=== PATIENT | female | born 1975 | race American Indian/Alaskan Native ===

== ENCOUNTER 2020-05-26 14:22 | Outpatient (REF) | payer MEDICAID, SELFPAY ==
[2020-05-27 08:49] LABS: BV Int Neg Control Negative (Negative); BV Int Pos Control Positive (Positive)
[2020-05-28 09:57] LABS: C. trachomatis RNA TMA NOT DETECTED (NOT DETECTED); N. gonorrhoeae RNA TMA NOT DETECTED (NOT DETECTED)
[2020-05-29 17:07] LABS: HPV mRNA E6/E7 rflx Not Detected (Not Detected)
== END 2020-05-26 14:23 | disposition home or self-care (01) ==
LOC: HO.LAB 14:22
PROVIDERS: PCP Nurse Practitioner Family; Visit Provider Advanced Practice Midwife
DX: Z12.4 Encounter for screening for malignant neoplasm of cervix (principal); B37.2 Candidiasis of skin and nail; L40.9 Psoriasis, unspecified; E66.01 Morbid (severe) obesity due to excess calories
CPT/HCPCS: 36415; 87480; 87491; 87510; 87591; 87624; 87660; 88142

== ENCOUNTER 2020-07-30 09:53 | Outpatient (REF) | payer MEDICAID, SELFPAY ==
[2020-07-30 12:09] LABS: MANUAL DIFF FLAG NO
[2020-07-30 12:17] LABS: Basophils Percent Auto 0.6 % (0-2); Eosinophils Absolute Auto 0.1 X10*3/uL (0.0-0.4); Eosinophils Percent Auto 2.8 % (0-4); Hemoglobin 12.5 g/dl (12.0-16.0); Lymphocytes Absolute Auto 1.4 X10*3/uL (1.2-4.9); Mean Corpuscular HGB Conc 31.3 g/dl (31.0-35.0); Mean Corpuscular Hemoglobin 26.4 pg (27.0-33.0); Mean Corpuscular Volume 84.4 fL (80-98); Mean Platelet Volume 11.2 fL (9.4-12.3); Monocytes Absolute Auto 0.5 X10*3/uL (0.1-1.2); Monocytes Percent Auto 13.5 % (2-11); Neutrophils Absolute Auto 1.5 X10*3/uL (2.0-8.3); Neutrophils Percent Auto 43.1 % (45-73); Platelet Count 210 X10*3/uL (160-400); Red Blood Count 4.74 X10*6/uL (4.20-5.50); Red Cell Distribution Width 13.4 % (11.0-16.0); White Blood Count 3.6 X10*3/uL (4.8-10.8)
[2020-07-30 16:14] LABS: CT PCR NOT DETECTED (Not Detect.); NG PCR NOT DETECTED (Not Detect.)
[2020-07-30 18:10] LABS: Alanine Aminotransferase 12 U/L (0-31); Albumin Level 3.8 g/dL (3.5-5.0); Alkaline Phosphatase 52 U/L (39-117); Anion Gap 9 (12-20); Aspartate Amino Transferase 11 U/L (5-31); Bilirubin Direct 0.2 mg/dL (0.0-0.5); Bilirubin Total 0.4 mg/dL (0.0-1.0); Blood Urea Nitrogen 13 mg/dL (9-16); Carbon Dioxide 28 mmol/L (22-29); Chloride 105 mmol/L (96-108); Estimated Glomerular Filt Rate > 60; Glucose Random 97 mg/dL (60-115); Potassium 4.2 mmol/L (3.3-5.1); Sodium 138 mmol/L (135-145); Total Protein 6.9 g/dL (6.5-8.0)
[2020-07-31 09:17] LABS: BV Int Neg Control Negative (Negative); BV Int Pos Control Positive (Positive)
== END 2020-07-30 09:54 | disposition home or self-care (01) ==
LOC: HO.LAB 09:53
PROVIDERS: Internal Medicine; PCP Internal Medicine; Visit Provider Advanced Practice Midwife
DX: Z11.3 Encounter for screening for infections with a predominantly sexual mode of transmission (principal); R10.2 Pelvic and perineal pain; N89.8 Other specified noninflammatory disorders of vagina; N92.1 Excessive and frequent menstruation with irregular cycle; Z20.2 Contact with and (suspected) exposure to infections with a predominantly sexual mode of transmission; Z97.5 Presence of (intrauterine) contraceptive device
CPT/HCPCS: 36415; 80051; 80076; 82565; 82947; 84520; 85025; 87480; 87491; 87510; 87591; 87660; 99212

== ENCOUNTER 2020-07-30 11:28 | Outpatient (REF) | payer MEDICAID, SELFPAY | END 2020-07-30 11:29 | disposition home or self-care (01) | LOC: HO.LAB 11:28 | PROVIDERS: PCP Internal Medicine; Visit Provider Internal Medicine | DX: Z13.89 Encounter for screening for other disorder (principal) ==

== ENCOUNTER 2020-07-30 13:24 | Outpatient (REF) | payer MEDICAID, SELFPAY ==
--- NOTE | ~2020-07-30 | US_ITS ---
EXAMINATION: PELVIC ULTRASOUND CLINICAL INFORMATION: Check IUD COMPARISON: Previous pelvic ultrasound October 2018 TECHNIQUE: Transabdominal and transvaginal pelvic ultrasound was performed. Transvaginal exam was performed for better visualization of the uterus and ovaries. FINDINGS: The uterus is anteverted and measures 10 x 4.7 x 5.4 cm in dimension. No focal uterine lesion is seen. There is an IUD in the uterus in satisfactory position. The endometrium does not appear thickened. There is a nabothian cyst in the cervix. The ovaries are normal. The right ovary measures 3.1 x 1.3 x 2.2 cm and the left ovary measures 2.2 x 1.6 x 2.2 cm. There is no fluid in the pelvis. US/US pelvic and transvaginal IMPRESSION: IUD in the uterus in satisfactory position.
== END 2020-07-30 13:25 | disposition home or self-care (01) ==
LOC: HO.HMGCX 13:24
PROVIDERS: Visit Provider Advanced Practice Midwife
DX: Z30.431 Encounter for routine checking of intrauterine contraceptive device (principal); R10.2 Pelvic and perineal pain; N92.1 Excessive and frequent menstruation with irregular cycle
CPT/HCPCS: 76830; 76856

== ENCOUNTER → 2020-08-15 15:54 | Outpatient (BNVA) | payer MEDICAID, SELFPAY | PROVIDERS: PCP Internal Medicine; Visit Provider Advanced Practice Midwife ==

== ENCOUNTER → 2020-09-18 10:04 | Outpatient (BNVA) | payer MEDICAID, SELFPAY | PROVIDERS: PCP Internal Medicine; Visit Provider Physician Assistant | DX: M65.332 Trigger finger, left middle finger (principal) | CPT/HCPCS: 99212 ==

== ENCOUNTER → 2020-09-23 09:32 | Outpatient (BNVA) | payer MEDICAID, SELFPAY | PROVIDERS: PCP Internal Medicine; Visit Provider Orthopaedic Surgery | DX: M65.332 Trigger finger, left middle finger (principal); M65.342 Trigger finger, left ring finger | CPT/HCPCS: 99202 ==

== ENCOUNTER 2020-10-03 13:30 | Outpatient (REF) | payer MEDICAID, SELFPAY ==
--- NOTE | ~2020-10-03 | XR_ITS ---
EXAMINATION: CR X-RAY HIP BILATERAL 2 VIEW CLINICAL INFORMATION: Bilateral hip pain. COMPARISON: None TECHNIQUE: 2 views each of the bilateral hips were obtained. FINDINGS: There is no acute fracture or dislocation. No significant degenerative joint changes are seen. The bony pelvis is intact. An IUD overlies the paramedian right hemipelvis. XR/XR hip LT min 2V IMPRESSION: Unremarkable bilateral hips.
--- NOTE | ~2020-10-03 | XR_ITS ---
EXAMINATION: CR X-RAY HIP BILATERAL 2 VIEW CLINICAL INFORMATION: Bilateral hip pain. COMPARISON: None TECHNIQUE: 2 views each of the bilateral hips were obtained. FINDINGS: There is no acute fracture or dislocation. No significant degenerative joint changes are seen. The bony pelvis is intact. An IUD overlies the paramedian right hemipelvis. XR/XR hip RT min 2V IMPRESSION: Unremarkable bilateral hips.
== END 2020-10-03 13:31 | disposition home or self-care (01) ==
LOC: HO.XRAY 13:30
PROVIDERS: PCP Internal Medicine; Visit Provider Student in an Organized Health Care Education/Training Program
DX: M25.552 Pain in left hip (principal); M25.551 Pain in right hip; L40.9 Psoriasis, unspecified; K50.90 Crohn's disease, unspecified, without complications; Z79.899 Other long term (current) drug therapy
CPT/HCPCS: 73502; 99212

== ENCOUNTER → 2020-10-15 12:48 | Outpatient (BNVA) | payer MEDICAID, SELFPAY | PROVIDERS: PCP Internal Medicine; Visit Provider Orthopaedic Surgery | DX: M65.332 Trigger finger, left middle finger (principal); M65.342 Trigger finger, left ring finger | CPT/HCPCS: 20552; 20550; 99212; J1100 ==

== ENCOUNTER 2021-01-08 11:54 | Outpatient (REF) | payer MEDICAID, SELFPAY ==
[2021-01-08 12:42] LABS: MANUAL DIFF FLAG NO
[2021-01-08 12:56] LABS: Basophils Percent Auto 0.6 % (0-2); Eosinophils Absolute Auto 0.1 X10*3/uL (0.0-0.4); Eosinophils Percent Auto 1.9 % (0-4); Hematocrit 39.6 % (37-47); Hemoglobin 12.5 g/dl (12.0-16.0); Lymphocytes Absolute Auto 1.2 X10*3/uL (1.2-4.9); Lymphocytes Percent Auto 37.1 % (20-40); Mean Corpuscular HGB Conc 31.6 g/dl (31.0-35.0); Mean Corpuscular Hemoglobin 26.4 pg (27.0-33.0); Mean Corpuscular Volume 83.5 fL (80-98); Mean Platelet Volume 11.7 fL (9.4-12.3); Monocytes Absolute Auto 0.4 X10*3/uL (0.1-1.2); Monocytes Percent Auto 12.6 % (2-11); Neutrophils Absolute Auto 1.5 X10*3/uL (2.0-8.3); Neutrophils Percent Auto 47.8 % (45-73); Platelet Count 205 X10*3/uL (160-400); Red Blood Count 4.74 X10*6/uL (4.20-5.50); Red Cell Distribution Width 12.8 % (11.0-16.0); White Blood Count 3.1 X10*3/uL (4.8-10.8)
[2021-01-08 13:12] LABS: Alanine Aminotransferase 13 U/L (0-31); Albumin Level 3.9 g/dL (3.5-5.0); Alkaline Phosphatase 50 U/L (39-117); Aspartate Amino Transferase 12 U/L (5-31); Bilirubin Direct 0.2 mg/dL (0.0-0.5); Bilirubin Total 0.7 mg/dL (0.0-1.0); C Reactive Protein 0.86 mg/dL (< or = 0.50); Total Protein 6.7 g/dL (6.5-8.0)
[2021-01-08 14:55] LABS: Erythrocyte Sedimentation Rate 13 MM/HR (0-20)
== END 2021-01-08 11:55 | disposition home or self-care (01) ==
LOC: HO.LAB 11:54
PROVIDERS: PCP Internal Medicine; Visit Provider Internal Medicine
DX: K50.80 Crohn's disease of both small and large intestine without complications (principal)
CPT/HCPCS: 36415; 80076; 80299; 82542; 85025; 85652; 86140

== ENCOUNTER → 2021-01-21 09:29 | Outpatient (BNVA) | payer MEDICAID, SELFPAY | PROVIDERS: PCP Internal Medicine; Visit Provider Orthopaedic Surgery | DX: M65.332 Trigger finger, left middle finger (principal); M65.342 Trigger finger, left ring finger | CPT/HCPCS: 99212 ==

== ENCOUNTER 2021-02-19 10:05 | Day surgery (SDC) | payer MEDICAID, SELFPAY ==
[2021-02-19 10:46] VITALS: BP 114/70; PULSE 87; RESP 16; TEMP 36.9; O2SAT 99; BMI 46.2
--- NOTE | 2021-02-19 11:03 | W.PM.OPN ---
Operative Note Operative Note Date of Service: 02/19/21 Narrative: Operative Note Preop diagnosis: 1. Left middle finger Trigger finger 2. Left ring finger trigger finger Postop diagnosis: Same Procedure: 1. Left middle finger A1 suha release 2. Left ring finger A1 suha release Surgeon: Machelle Moeller MD Anesthesia: local block using 1% lidocaine with epinephrine Findings: No locking or catching after A1 suha release EBL: Less than 5 mL Tourniquet time: None Specimens: None Complications: None Disposition: Brought to recovery room in stable condition Plan: Follow-up for 7-10 days for wound check and suture removal Indications: The patient is 45 years old, with a left middle and left ring finger trigger fingers that has been unresponsive to nonoperative management. The risks and benefits of operative treatment including but not limited to risk of damage to blood vessels, nerves, tendons, infection, persistent pain, persistent symptoms, recurrence or possible need for additional surgery were discussed with the patient and the patient wishes to proceed with surgery. Procedure: Once consent was obtained a local block was performed in the preop area using a combination of 1% lidocaine with epinephrine. The patient was then brought back to the operating suite and placed on the operative table in supine position. A tourniquet was applied to the proximal aspect of the left upper extremity and the limb was prepped and draped in a standard surgical fashion. Once assured that we had a good block, a 1.5 cm oblique incision was made centered over the A1 suha of the left middle finger . The incision was made through the skin to the subcutaneous tissues using a #15 blade. Careful dissection was made down to the level of the A1 suha using tenotomy scissors, with care being taken to protect the nearby neurovascular structures. A longitudinal incision was made in the A1 suha 1st using a #15 blade, then using tenotomy scissors under direct visualization. The A1 suha was noted to be thickened. Following our A1 suha release, we no longer saw any locking or catching of the digit with flexion and extension. Once assured that we had a good block, a 1.5 cm oblique incision was made centered over the A1 suha of the left ring finger . The incision was made through the skin to the subcutaneous tissues using a #15 blade. Careful dissection was made down to the level of the A1 suha using tenotomy scissors, with care being taken to protect the nearby neurovascular structures. A longitudinal incision was made in the A1 suha 1st using a #15 blade, then using tenotomy scissors under direct visualization. The A1 suha was noted to be thickened. Following our A1 suha release, we no longer saw any locking or catching of the digit with flexion and extension. Once satisfied with our A1 suha release the wound was copiously irrigated with normal saline and hemostasis was obtained with a brief period of local pressure. The skin edges were reapproximated with some 5.0 nylon suture material and a sterile dressing was applied. The patient appears to have tolerated the procedure well and with no complications. All digits were well vascularized at the conclusion of the case.
[2021-02-19 14:20] VITALS: BP 123/73; PULSE 86; RESP 17; TEMP 36.9; O2SAT 98
== END 2021-02-19 14:40 | disposition home or self-care (01) ==
PROVIDERS: PCP Internal Medicine; Visit Provider Orthopaedic Surgery
PROC: (CPT 26055; principal; 2021-02-19 11:30)
DX: M65.332 Trigger finger, left middle finger (principal); M65.342 Trigger finger, left ring finger; J45.909 Unspecified asthma, uncomplicated; K50.90 Crohn's disease, unspecified, without complications; Z98.84 Bariatric surgery status; Z79.899 Other long term (current) drug therapy; Z88.1 Allergy status to other antibiotic agents; Z87.891 Personal history of nicotine dependence
CPT/HCPCS: 26055 ×2; Q0163

== ENCOUNTER → 2021-03-03 12:11 | Outpatient (BNVA) | payer MEDICAID, SELFPAY | PROVIDERS: Visit Provider Orthopaedic Surgery | DX: M65.342 Trigger finger, left ring finger (principal); M65.332 Trigger finger, left middle finger | CPT/HCPCS: 99212 ==

== ENCOUNTER → 2021-03-23 20:42 | Outpatient (REF) | payer MEDICAID, SELFPAY | LOC: HO.SL 20:42 | PROVIDERS: PCP Internal Medicine; Visit Provider Internal Medicine | DX: Z13.89 Encounter for screening for other disorder (principal) ==

== ENCOUNTER → 2021-04-07 08:55 | Outpatient (BNVA) | payer MEDICAID, SELFPAY | PROVIDERS: PCP Internal Medicine; Visit Provider Nurse Practitioner Family | DX: M25.552 Pain in left hip (principal); M79.641 Pain in right hand; M79.642 Pain in left hand; K50.90 Crohn's disease, unspecified, without complications; L40.9 Psoriasis, unspecified | CPT/HCPCS: 99212 ==

== ENCOUNTER 2021-08-17 09:00 | Outpatient (REF) | payer MEDICAID, SELFPAY ==
[2021-08-17 16:02] LABS: CT PCR NOT DETECTED (Not Detect.); NG PCR NOT DETECTED (Not Detect.)
[2021-08-18 09:56] LABS: BV Int Neg Control Negative (Negative); BV Int Pos Control Positive (Positive)
== END 2021-08-17 09:01 | disposition home or self-care (01) ==
LOC: HO.LAB 09:00
PROVIDERS: PCP Internal Medicine; Visit Provider Advanced Practice Midwife
DX: Z01.411 Encounter for gynecological examination (general) (routine) with abnormal findings (principal); N93.9 Abnormal uterine and vaginal bleeding, unspecified; Z20.2 Contact with and (suspected) exposure to infections with a predominantly sexual mode of transmission
CPT/HCPCS: 87480; 87491; 87510; 87591; 87660

== ENCOUNTER 2021-09-03 09:14 | Outpatient (REF) | payer MEDICAID, SELFPAY ==
[2021-09-03 11:47] LABS: MANUAL DIFF FLAG NO
[2021-09-03 11:51] LABS: Basophils Percent Auto 0.6 % (0-2); Eosinophils Absolute Auto 0.1 X10*3/uL (0.0-0.4); Hemoglobin 12.4 g/dl (12.0-16.0); Imm Gran Abs Auto 0.01 X10*3/uL (0.00-0.03); Imm Gran Pct Auto 0.3 % (0.0-0.4); Lymphocytes Absolute Auto 1.4 X10*3/uL (1.2-4.9); Mean Corpuscular HGB Conc 31.8 g/dl (31.0-35.0); Mean Corpuscular Hemoglobin 26.7 pg (27.0-33.0); Mean Corpuscular Volume 84.1 fL (80.0-98.0); Mean Platelet Volume 12.1 fL (9.4-12.3); Monocytes Absolute Auto 0.4 X10*3/uL (0.1-1.2); Monocytes Percent Auto 9.8 % (2-11); Neutrophils Absolute Auto 1.8 x10*3/uL (2.0-8.3); Neutrophils Percent Auto 49.3 % (45-73); Platelet Count 211 X10*3/uL (160-400); Red Blood Count 4.64 X10*6/uL (4.20-5.50); Red Cell Distribution Width 13.3 % (11.0-16.0); White Blood Count 3.6 X10*3/uL (4.8-10.8)
[2021-09-03 12:24] LABS: Ferritin 53 ng/mL (10-250)
[2021-09-03 12:29] LABS: Alanine Aminotransferase 21 U/L (0-31); Albumin Level 3.6 g/dL (3.5-5.0); Alkaline Phosphatase 54 U/L (39-117); Aspartate Amino Transferase 15 U/L (5-31); Bilirubin Direct 0.2 mg/dL (0.0-0.5); Bilirubin Total 0.3 mg/dL (0.0-1.0); C Reactive Protein 0.98 mg/dL (< or = 0.50); Iron 137 mcg/dL (30-160); Percent Iron Saturation 44 % (15-50); Total Iron Binding Capacity 312 mcg/dL (228-428); Total Protein 6.6 g/dL (6.5-8.0); Unsaturated Iron Binding 175 ug/dL
[2021-09-03 12:44] LABS: Folate 5.9 ng/mL (> or = 4.0); Vitamin B12 330 pg/mL (200-900)
[2021-09-03 13:04] LABS: Erythrocyte Sedimentation Rate 10 MM/HR (0-20)
== END 2021-09-03 09:15 | disposition home or self-care (01) ==
LOC: HO.HMGCLDS 09:14
PROVIDERS: Visit Provider Internal Medicine
DX: K50.80 Crohn's disease of both small and large intestine without complications (principal)
CPT/HCPCS: 36415; 80076; 82607; 82728; 82746; 83540; 85025; 85652; 86140

== ENCOUNTER 2021-10-06 08:20 | Outpatient (REF) | payer MEDICAID, SELFPAY ==
--- NOTE | ~2021-10-06 | US_ITS ---
EXAMINATION: US PELVIS CLINICAL INFORMATION: Abnormal uterine bleeding COMPARISON: Previous pelvic ultrasound most recent July 2020 TECHNIQUE: Ultrasound of the pelvis is performed using both transabdominal and transvaginal transducers along with Doppler. Transvaginal imaging is performed due to inadequate visualization transabdominally. FINDINGS: The uterus is anteverted and measures 9.5 x 5.4 x 6.3 cm in dimension. There is an IUD in the uterus in satisfactory position. The endometrium is not clearly identified but does not appear thickened. No focal uterine lesion is seen. There are nabothian cysts in the cervix. The right ovary measures 5.3 x 3.1 x 3 cm. There is a 3.7 x 3.2 x 3 cm simple right ovarian cyst. According to patient age in size of cyst, ultrasound follow-up is not indicated. Left ovary is seen transabdominally only and is normal-appearing. The left ovary measures 3.3 x 1.3 x 1.9 cm. There is no fluid in the pelvis. US/US pelvic and transvaginal IMPRESSION: IUD in the uterus in satisfactory position. Endometrium is not clearly identified but does not appear thickened. 3.7 x 3.2 x 3 cm right simple ovarian cyst.
== END 2021-10-06 08:21 | disposition home or self-care (01) ==
LOC: HO.HMGCX 08:20
PROVIDERS: Visit Provider Advanced Practice Midwife
DX: E66.01 Morbid (severe) obesity due to excess calories (principal); N93.9 Abnormal uterine and vaginal bleeding, unspecified; Z30.09 Encounter for other general counseling and advice on contraception; Z97.5 Presence of (intrauterine) contraceptive device
CPT/HCPCS: 76830; 76856

== ENCOUNTER 2021-10-06 11:26 | Outpatient (REF) | payer MEDICAID, SELFPAY ==
--- NOTE | ~2021-10-06 | MM_ITS ---
EXAMINATION: MM SCREENING DIGITAL BREAST TOMOSYNTHESIS, BILATERAL CLINICAL INFORMATION: Screening. Asymptomatic. No prior mammography. Age 46. The lifetime risk of breast cancer based on the Tyrer-Cuzick Model is 13%. COMPARISON: No prior mammography. Current study represents baseline mammography. Comparison is made with targeted ultrasound left breast 08/26/2011 ([facility]). TECHNIQUE: Digital breast tomosynthesis is performed in both the craniocaudal and mediolateral oblique views along with computer-aided detection (CAD). Synthesized 2D images are generated from the tomosynthesis. FINDINGS: There are scattered areas of fibroglandular density (ACR BI-RADS breast composition Category b). There are no significant masses, abnormal calcifications, or other abnormalities. No architectural abnormality. There is an intramammary node mid 9:00 right breast. The axilla and skin contours are unremarkable. MM/MM tomosynthesis screening BI IMPRESSION: No mammographic evidence of malignancy. ASSESSMENT: BI-RADS 2: Benign RECOMMENDATION: Routine annual mammography screening. This patient's information was entered into a reminder system with a target due date for their next mammogram.
== END 2021-10-06 11:27 | disposition home or self-care (01) ==
LOC: HO.MAMMO 11:26
PROVIDERS: PCP Internal Medicine; Visit Provider Advanced Practice Midwife
DX: Z12.31 Encounter for screening mammogram for malignant neoplasm of breast (principal)
CPT/HCPCS: 77063; 77067

== ENCOUNTER 2021-10-07 08:20 | Outpatient (REF) | payer MEDICAID, SELFPAY ==
--- NOTE | 2021-10-07 08:30 | EMG_ITS ---
HISTORY OF PRESENT ILLNESS: This is a 46-year-old woman with several year history of bilateral upper extremity numbness and tingling with the right being worse than the left. She had a previous nerve conduction study at [facility]. She has been wearing wrist splints on the right. PHYSICAL EXAMINATION: On examination, she is alert and oriented with normal intellectual functions. Cranial nerves II through XII normal. Muscle tone and strength are normal. No Tinel or Phalen sign. IMPRESSION: Carpal tunnel syndrome. Nerve conduction EMG study: Very early carpal tunnel syndrome bilaterally with mild slowing in the median sensory velocities across the carpal tunnel. Normal EMG in the right C5 through T1 innervated muscles. MD CHUYITA Conn/TANIA / [id number]
== END 2021-10-07 08:21 | disposition home or self-care (01) ==
LOC: HO.NEURO 08:20
PROVIDERS: Visit Provider Internal Medicine
DX: M25.521 Pain in right elbow (principal); M25.541 Pain in joints of right hand
CPT/HCPCS: 95885; 95913

== ENCOUNTER → 2021-10-14 10:50 | Outpatient (BNVA) | payer MEDICAID, SELFPAY | PROVIDERS: PCP Internal Medicine; Visit Provider Orthopaedic Surgery | DX: M77.11 Lateral epicondylitis, right elbow (principal); R20.0 Anesthesia of skin; R20.2 Paresthesia of skin | CPT/HCPCS: 20551; 99212; J1100 ==

== ENCOUNTER 2021-10-16 11:57 | Emergency (ER) | payer MEDICAID, SELFPAY ==
--- NOTE | ~2021-10-16 | XR_ITS ---
EXAMINATION: XR FOOT, RIGHT CLINICAL INFORMATION: Pain COMPARISON: Previous x-ray from 2015 TECHNIQUE: AP, lateral, and oblique views of the right foot. FINDINGS: The bones are normal. No fracture. Alignment is anatomic. Joint spaces are maintained. Are small calcaneal spurs. XR/XR foot RT min 3V IMPRESSION: Small calcaneal spurs.
[2021-10-16 12:03] VITALS: BP 104/63; PULSE 75; RESP 16; TEMP 36.8; O2SAT 97; BMI 48.1
--- NOTE | 2021-10-16 12:13 | ED.GENADULT ---
HPI - General Adult General Chief complaint: Extremity Injury, Lower Stated complaint: pain in R ankle Time Seen by Provider: 10/16/21 12:13 Source: patient Mode of arrival: ambulatory Limitations: no limitations History of Present Illness HPI narrative: Patient is a 46 year old female presenting to the emergency department today with right heel pain. Patient states that she has had this before but over the last week it has gotten worse. Patient states that when she takes a step, she has pain in the right heel. Patient states that she has a history of plantar fasciitis and does not currently follow with an orthopedic doctor for it. Patient denies any dizziness, lightheadedness, abdominal pain, nausea, vomiting, fever, chills, blurry vision, double vision, loss of vision, chest pain, difficulty breathing, shortness of breath, back pain, night sweats, pain with urination, increased urinary frequency, increased urinary urgency, blood in her urine or stool, syncope or a near syncopal episode, recent trauma or falls, bowel incontinence, bladder incontinence, bowel retention, bladder retention, or any other complaints at this time. Onset (ago): year(s) Location: right and lower extremity Radiation: non-radiation Severity: mild Severity scale (1-10): 2 Quality: dull Pain Consistency: intermittent Relieving factors: none Exacerbating factors: movement Associated symptoms: denies other symptoms Treatments prior to arrival: none Related Data Home Medications Medication Instructions Recorded Confirmed zolpidem 10 mg tablet (Ambien) 10 mg PO BEDTIME PRN Insomnia 05/26/20 10/13/21 hydroxyzine pamoate 25 mg capsule 25 mg PO BEDTIME 07/30/20 10/13/21 ustekinumab 90 mg/mL subcutaneous 90 mg subcut Q8W 07/30/20 10/13/21 syringe (Stelara) fluticasone propionate 110 110 mcg inhalation DAILY 02/19/21 10/13/21 mcg/actuation HFA aerosol inhaler (Flovent HFA) albuterol sulfate 90 mcg/actuation 2 puff inhalation Q6H PRN 04/07/21 10/13/21 aerosol inhaler (ProAir HFA) Shortness Of Breath Or Wheezing baclofen 10 mg tablet 20 mg PO TID 04/07/21 10/13/21 cholecalciferol (vitamin D3) 50 50 mcg PO DAILY 04/07/21 10/13/21 mcg (2,000 unit) capsule dicyclomine 20 mg tablet 20 mg PO TID 04/07/21 10/13/21 pantoprazole 40 mg tablet,delayed 40 mg PO DAILY 04/07/21 10/13/21 release buspirone 5 mg tablet 5 mg PO BID 08/17/21 10/13/21 fexofenadine 180 mg tablet 180 mg PO DAILY 08/17/21 10/13/21 (Amada Allergy) levonorgestrel 20 mcg/24 hours (7 20 mcg intrauterine DAILY 08/17/21 10/13/21 yrs) 52 mg intrauterine device (Mirena) sertraline 50 mg tablet 50 mg PO DAILY 08/17/21 10/13/21 propranolol 20 mg tablet 1 tab PO DAILY 10/12/21 10/13/21 Previous Rx's Medication Instructions Recorded fluconazole 150 mg tablet 150 mg PO Q3D PRN reported yeast 09/04/21 infections #2 tabs Allergies Allergy/AdvReac Type Severity Reaction Status Date / Time ciprofloxacin [From CIPRO] Allergy Severe GI PAIN Verified 10/14/21 11:20 vancomycin Allergy Unknown anaphylaxis Uncoded 10/14/21 11:20 Review of Systems Constitutional: Constitutional: Reports no additional constitutional complaints, Denies chills, Denies fever(s) and Denies night sweats Eyes: Eyes: Reports no additional eye complaints, Denies blurry vision, Denies change in vision, Denies diplopia, Denies eye discharge, Denies loss of vision and Denies eye pain ENT: Denies dizziness Cardiovascular: Cardiovascular: Reports no additional cardiovascular complaints, Denies chest pain, Denies lightheadedness, Denies Loss of Consciousness and Denies dyspnea Respiratory: Respiratory: Reports no additional respiratory complaints and Denies dyspnea Gastrointestinal: Gastrointestinal: Reports no additional gastrointestinal complaints, Denies abdominal pain, Denies melena, Denies hematochezia, Denies change in bowel habits and Denies change in stool character Genitourinary: Genitourinary: Denies hematuria, Denies urinary frequency, Denies dysuria, Denies urinary incontinence, Denies urinary hesitancy and Denies urinary urgency Musculoskeletal: Musculoskeletal: Reports no additional musculoskeletal complaints, Denies numbness and Denies tingling Comments: right heel pain Neurologic: Denies dizziness, Denies loss of vision, Denies numbness and Denies tingling Psychiatric: Psychiatric: Reports no additional psychiatric complaints Endocrine: Endocrine: Reports no additional endocrine complaints Hematologic/Lymphatic: Hematologic/Lymphatic: Reports no additional hematologic/lymphatic complaints Allergic/Immunologic: Allergic/Immunologic: Reports no additional allergic/immunologic complaints PMFSH Past Medical History Attestation statement: The following information was validated with the patient. Source: old records reviewed Medical History Asthma Crohn's disease Insomnia Trigger finger Surgical History History of carpal tunnel surgery Hx of breast reduction, elective Hx of laparoscopic gastric banding Family History Family History Father HIV (human immunodeficiency virus infection) Mother Hypertension Maternal Grandmother Diabetes mellitus Maternal Grandfather Hypertension Lymphoma Paternal Grandfather No problems noted. 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/ Gender identity: Female Physical Exam ED Vital Signs: Vital Signs - 24 hr 10/16/21 12:03 Temperature 98.2 F Pulse Rate 75 Respiratory Rate 16 Blood Pressure 104/63 Pulse Oximetry 97 Oxygen Delivery Method Room Air BMI result Body Mass Index 48.1 Const General: cooperative, no acute distress, alert and awake Nutritional Appearance: well nourished Orientation/consciousness: patient oriented x3 Limitations: no limitations HENMT Head: Yes normal to inspection and Yes atraumatic Ears: hearing grossly normal bilaterally and external ears normal General nose exam: Normal external nose present, no nasal discharge noted and no epistaxis Face and sinus: Yes normal facial exam, No abrasion and No laceration Mouth: Normal oral and palatal mucosa present, no drooling and no muffled voice Eyes General: appearance normal, both eyes and all related structures Periorbital: periorbital findings normal Eyelids: Yes eyelids normal Conjunctivae: conjunctivae normal Pupils: Equal, round and reactive pupils present EOM: EOMs intact bilaterally Neck Neck: Yes normal visual inspection, Yes full ROM and Yes no lymphadenopathy Chest Chest palpation & inspection: normal inspection of the chest Resp Effort & Inspection: normal respiratory effort and able to speak in complete sentences Auscultation: clear to auscultation bilaterally Cardio Rate: regular rate Rhythm: regular rhythm GI Inspection: Yes normal to inspection Neuro General: patient oriented x3 and moves all extremities Cranial nerves: Yes Equal, round and reactive pupils present Cognition (Neuro): normal cognition Motor exam (neuro): 5/5 motor strength present throughout Sensory Exam: Normal double simultaneous stimulation for sensation Coordination: [id number] test normal Extrem General: Yes normal to inspection, Yes full ROM and Yes capillary refill normal Psych Appearance: grossly normal Mental Status: mental status grossly normal Affect: normal affect Attitude: cooperative Thought process: Normal thought process present Thought content: Normal thought content present Insight: Good insight present (Psych) Medical Decision Making [facility] Narrative Medical decision making narrative: Patient is a 46 year old female presenting to the emergency department today with right heel pain. Patient's physical exam was unremarkable. Patient's right foot x-ray showed no acute process. I explained my physical exam findings as well as all test results to the patient. I answered all questions asked by the patient. I stressed the importance of the patient taking her medication as prescribed. I stressed the importance of the patient following up with her primary care provider and an orthopedic provider. I stressed the importance of the patient returning to the emergency department immediately if her symptoms were to worsen or if she were to develop any dizziness, shortness of breath, difficulty breathing, chest pain, blurry vision, loss of vision, nausea, vomiting, abdominal pain, fever, chills, back pain, or any other complaints. Patient verbalized agreement and understanding with this treatment plan and discharge. Differential Diagnosis Differential Diagnosis: plantar fasciitis Medical Records Medical records reviewed: Yes I reviewed the patient's medical records. Imaging Data Right heel pain: Attestation: I personally reviewed and interpreted this imaging study as follows: My impression: No acute fracture. Radiologist's impression: EXAMINATION: XR FOOT, RIGHT CLINICAL INFORMATION: Pain? COMPARISON: Previous x-ray from 2015? TECHNIQUE: AP, lateral, and oblique views of the right foot. FINDINGS: The bones are normal. No fracture. Alignment is anatomic. Joint spaces are maintained. Are small calcaneal spurs. XR/XR foot RT min 3V IMPRESSION: Small calcaneal spurs. Dictated By: Stefanie Jay MD Signed By: Electronically signed by Stefanie Jay MD 10/16/21 9930 Discharge Plan Discharge Clinical Impression: Plantar fasciitis Patient Disposition: Home, Self-Care Instructions: Plantar Fasciitis (ED) Additional Instructions: Follow up with your primary care provider and an orthopedic provider. Return to the emergency department immediately if your symptoms worsen or if you develop any dizziness, shortness of breath, difficulty breathing, chest pain, blurry vision, loss of vision, nausea, vomiting, abdominal pain, fever, chills, back pain, or any other complaints. Prescriptions: No Action fluconazole 150 mg tablet 150 mg PO Q3D PRN (Reason: reported yeast infections) Qty: 2 0RF Rx Instructions: may repeat second dose 72 hrs after first dose if symptoms persist fluticasone propionate [Flovent HFA] 110 mcg/actuation HFA aerosol inhaler 110 mcg inhalation DAILY propranolol 20 mg tablet 1 tab PO DAILY zolpidem [Ambien] 10 mg tablet 10 mg PO BEDTIME PRN (Reason: Insomnia) baclofen 10 mg tablet 20 mg PO TID cholecalciferol (vitamin D3) 50 mcg (2,000 unit) capsule 50 mcg PO DAILY pantoprazole 40 mg tablet,delayed release (DR/EC) 40 mg PO DAILY dicyclomine 20 mg tablet 20 mg PO TID albuterol sulfate [ProAir HFA] 90 mcg/actuation HFA aerosol inhaler 2 puff inhalation Q6H PRN (Reason: Shortness Of Breath Or Wheezing) hydroxyzine pamoate 25 mg capsule 25 mg PO BEDTIME Stelara 90 mg/mL syringe 90 mg subcut Q8W sertraline 50 mg tablet 50 mg PO DAILY buspirone 5 mg tablet 5 mg PO BID fexofenadine [Amada Allergy] 180 mg tablet 180 mg PO DAILY Mirena 20 mcg/24 hours (7 yrs) 52 mg intrauterine device 20 mcg intrauterine DAILY Ref[place]: [facility] [place] Group] Ceci Billings MD [Primary Care Provider] - Interventions: ED Discharge Assessment Last Done: 10/16/21 13:51 Discharge Date/Time: 10/16/21 13:52 Print Language: Bermudian
== END 2021-10-16 13:52 | disposition home or self-care (01) ==
PROVIDERS: Emergency Provider Emergency Medicine Emergency Medical Services; PCP Internal Medicine
DX: M72.2 Plantar fascial fibromatosis (principal); Z87.891 Personal history of nicotine dependence; Z79.899 Other long term (current) drug therapy
CPT/HCPCS: 73630; 99282; 99283

== ENCOUNTER 2021-11-09 13:31 | Outpatient (REF) | payer MEDICAID, SELFPAY ==
[2021-11-12 12:26] LABS: HPV mRNA E6/E7 rflx Not Detected (Not Detected)
== END 2021-11-09 13:32 | disposition home or self-care (01) ==
LOC: HO.LAB 13:31
PROVIDERS: PCP Internal Medicine; Visit Provider Advanced Practice Midwife
DX: Z30.433 Encounter for removal and reinsertion of intrauterine contraceptive device (principal); Z32.02 Encounter for pregnancy test, result negative; N93.9 Abnormal uterine and vaginal bleeding, unspecified; E66.01 Morbid (severe) obesity due to excess calories
CPT/HCPCS: 58100; 58300; 58301; 81025; 87624; 88142; 88305; 99212; J7300

== ENCOUNTER → 2021-12-07 12:28 | Outpatient (BNVA) | payer MEDICAID, SELFPAY | PROVIDERS: PCP Internal Medicine; Visit Provider Nurse Practitioner Family | DX: M25.551 Pain in right hip (principal); M25.552 Pain in left hip; L40.9 Psoriasis, unspecified; K50.90 Crohn's disease, unspecified, without complications; M79.641 Pain in right hand; M79.642 Pain in left hand | CPT/HCPCS: 99212 ==

== ENCOUNTER 2021-12-09 12:33 | Outpatient (REF) | payer MEDICAID, SELFPAY ==
[2021-12-09 12:40] LABS: MANUAL DIFF FLAG NO
[2021-12-09 12:54] LABS: Basophils Percent Auto 0.4 % (0-2); Eosinophils Absolute Auto 0.1 X10*3/uL (0.0-0.4); Eosinophils Percent Auto 1.9 % (0-4); Hematocrit 40.2 % (37.0-47.0); Hemoglobin 12.7 g/dl (12.0-16.0); Imm Gran Abs Auto 0.01 X10*3/uL (0.00-0.03); Imm Gran Pct Auto 0.2 % (0.0-0.4); Lymphocytes Absolute Auto 1.3 X10*3/uL (1.2-4.9); Lymphocytes Percent Auto 28.6 % (20-40); Mean Corpuscular HGB Conc 31.6 g/dl (31.0-35.0); Mean Corpuscular Hemoglobin 26.7 pg (27.0-33.0); Mean Corpuscular Volume 84.5 fL (80.0-98.0); Mean Platelet Volume 11.2 fL (9.4-12.3); Monocytes Absolute Auto 0.5 X10*3/uL (0.1-1.2); Monocytes Percent Auto 10.5 % (2-11); Neutrophils Absolute Auto 2.7 x10*3/uL (2.0-8.3); Neutrophils Percent Auto 58.4 % (45-73); Platelet Count 229 X10*3/uL (160-400); Red Blood Count 4.76 X10*6/uL (4.20-5.50); Red Cell Distribution Width 13.2 % (11.0-16.0); White Blood Count 4.7 X10*3/uL (4.8-10.8)
[2021-12-09 13:26] LABS: Alanine Aminotransferase 13 U/L (0-31); Aspartate Amino Transferase 12 U/L (5-31); Blood Urea Nitrogen 16 mg/dL (9-16); C Reactive Protein 1.03 mg/dL (< or = 0.50); Estimated Glomerular Filt Rate 60
[2021-12-09 13:35] LABS: Erythrocyte Sedimentation Rate 11 MM/HR (0-20)
== END 2021-12-09 12:34 | disposition home or self-care (01) ==
LOC: HO.LAB 12:33
PROVIDERS: PCP Internal Medicine; Visit Provider Nurse Practitioner Family
DX: M54.50 Low back pain, unspecified (principal); Z79.899 Other long term (current) drug therapy
CPT/HCPCS: 36415; 82565; 84450; 84460; 84520; 85025; 85652; 86140

== ENCOUNTER 2021-12-10 13:32 | Outpatient (REF) | payer SELFPAY ==
[2021-12-11 09:20] LABS: BV Int Neg Control Negative (Negative); BV Int Pos Control Positive (Positive)
== END 2021-12-10 13:33 | disposition home or self-care (01) ==
LOC: HO.LAB 13:32
PROVIDERS: Visit Provider Advanced Practice Midwife
DX: B37.2 Candidiasis of skin and nail (principal)
CPT/HCPCS: 87480; 87510; 87660; 99212

== ENCOUNTER 2021-12-11 12:56 | Outpatient (REF) | payer MEDICAID, SELFPAY ==
[2021-12-11 17:39] LABS: Appearance Urine Clear; Color Urine Yellow; Glucose Urine UA Negative (Negative); Leukocyte Esterase Urine Negative (Negative); Nitrite Urine Negative (Negative); PH 5.5 (5.0-8.0); Specific Gravity - Urine 1.015 (1.005-1.025); Urine Blood Negative (Negative); Urine Ketones Negative (Negative); Urine Protein Negative (Neg-Trace)
== END 2021-12-11 12:57 | disposition home or self-care (01) ==
LOC: HO.LAB 12:56
PROVIDERS: PCP Internal Medicine; Visit Provider Internal Medicine
DX: R39.9 Unspecified symptoms and signs involving the genitourinary system (principal)
CPT/HCPCS: 81003; 87086

== ENCOUNTER 2021-12-18 09:01 | Outpatient (REF) | payer MEDICAID, SELFPAY ==
--- NOTE | ~2021-12-18 | MR_ITS ---
EXAMINATION: MR PELVIS WITHOUT AND WITH CONTRAST CLINICAL INFORMATION: Lower back and bilateral hip pain. COMPARISON: Bilateral hip radiographs dated 10/03/2020. MR pelvis dated 05/10/2018. TECHNIQUE: Multisequence MR imaging of the pelvis was obtained before and after the IV administration of 10 ML Gadavist contrast on a high-field strength scanner. FINDINGS: BONE: No marrow edema or evidence of acute osseous injury. No stress reaction, fracture, or avascular necrosis. No abnormal marrow enhancement. Redemonstration of a prominent focus of fat within the right iliac bone as well as inferiorly within the right sacrum, unchanged when compared to the prior MRI. No associated enhancement or concerning features. No new lytic or blastic osseous lesion. MUSCLES/TENDONS: Moderate bilateral gluteus minimus tendinosis with associated edema and enhancement. No measurable muscle or tendon tear. INTRAPELVIC STRUCTURES: Multiple right adnexal simple cystic structures measuring up to 3.2 cm. These are almost certainly benign and no follow-up imaging is recommended. SOFT TISSUES: Within normal limits. MR/MR pelvis wo/w con IMPRESSION: 1. No evidence of acute osseous injury. No stress reaction, fracture, or avascular necrosis. 2. No concerning lytic or blastic osseous lesion. 3. Moderate bilateral gluteus minimus tendinosis.
== END 2021-12-18 09:02 | disposition home or self-care (01) ==
LOC: HO.MRI 09:01
PROVIDERS: Visit Provider Nurse Practitioner Family
DX: M53.3 Sacrococcygeal disorders, not elsewhere classified (principal); R93.5 Abnormal findings on diagnostic imaging of other abdominal regions, including retroperitoneum
CPT/HCPCS: 72197; A9585

== ENCOUNTER 2022-01-06 15:09 | Outpatient (REF) | payer MEDICAID, SELFPAY ==
--- NOTE | ~2022-01-06 | XR_ITS ---
EXAMINATION: XR chest 2V CLINICAL INFORMATION: Reason for Exam MODERATE PERSISTENT ASTHMA COMPARISON: Chest radiograph 07/10/2015 TECHNIQUE: 2 views of the chest FINDINGS: Suture chain material is noted overlying the left upper lobe. Similar appearance of linear right apical and left basilar opacities which may reflect chronic atelectasis or scar. No new consolidation. No pneumothorax. Stable chronic blunting of the left costophrenic angle. Normal cardiomediastinal silhouette. XR/XR chest 2V Impression: Similar appearance of linear right apical and left basilar opacities which may reflect chronic atelectasis or scar. No new consolidation
== END 2022-01-06 15:10 | disposition home or self-care (01) ==
LOC: HO.XRAY 15:09
PROVIDERS: Absent Provider Internal Medicine; PCP Internal Medicine; Visit Provider Emergency Medicine
DX: J45.41 Moderate persistent asthma with (acute) exacerbation (principal)
CPT/HCPCS: 71046

== ENCOUNTER → 2022-02-18 13:43 | Outpatient (BNVA) | payer MEDICAID, SELFPAY | PROVIDERS: PCP Internal Medicine; Visit Provider Internal Medicine | DX: J45.909 Unspecified asthma, uncomplicated (principal); J30.9 Allergic rhinitis, unspecified; E66.01 Morbid (severe) obesity due to excess calories; Z68.43 Body mass index [BMI] 50.0-59.9, adult; G47.33 Obstructive sleep apnea (adult) (pediatric) | CPT/HCPCS: 99202 ==

== ENCOUNTER 2022-03-09 12:55 | Outpatient (REF) | payer MEDICAID, SELFPAY ==
--- NOTE | 2022-03-09 17:30 | PFT_ITS ---
FLOWS: FEV1 79% of predicted at 2.40 L. FVC 83% of predicted at 3.05 L. FEV1 to FVC ratio of 0.78. No bronchodilator response except in small to medium airways. LUNG VOLUMES: Total lung capacity 82% of predicted at 4.32 L. Residual volume 76% of predicted at 1.34 L. Slow vital capacity 86% of predicted at 2.97 L. Expiratory reserve volume 25% of predicted at 0.30 L. Diffusion capacity is normal. IMPRESSION: No obstructive or restrictive ventilatory defect. No bronchodilator response except in small to medium airways. Decreased expiratory reserve volume suggests extrathoracic restriction likely secondary to abdominal obesity. Jose Juan Mishra MD AP/MODL / [id number]
== END 2022-03-09 12:56 | disposition home or self-care (01) ==
LOC: HO.RESP 12:55
PROVIDERS: PCP Internal Medicine; Visit Provider Internal Medicine
DX: J45.909 Unspecified asthma, uncomplicated (principal)
CPT/HCPCS: 94060; 94727; 94729

== ENCOUNTER 2022-05-20 13:26 | Outpatient (REF) | payer MEDICAID, SELFPAY ==
[2022-05-20 14:21] LABS: MANUAL DIFF FLAG NO
[2022-05-20 15:05] LABS: Basophils Percent Auto 0.3 % (0-2); Eosinophils Absolute Auto 0.1 X10*3/uL (0.0-0.4); Eosinophils Percent Auto 1.4 % (0-4); Hematocrit 38.4 % (37.0-47.0); Hemoglobin 12.1 g/dl (12.0-16.0); Imm Gran Abs Auto 0.01 X10*3/uL (0.00-0.03); Imm Gran Pct Auto 0.3 % (0.0-0.4); Lymphocytes Percent Auto 28.9 % (20-40); Mean Corpuscular HGB Conc 31.5 g/dl (31.0-35.0); Mean Corpuscular Hemoglobin 26.1 pg (27.0-33.0); Mean Corpuscular Volume 82.9 fL (80.0-98.0); Mean Platelet Volume 11.3 fL (9.4-12.3); Monocytes Absolute Auto 0.4 X10*3/uL (0.1-1.2); Monocytes Percent Auto 11.9 % (2-11); Neutrophils Absolute Auto 2.1 x10*3/uL (2.0-8.3); Neutrophils Percent Auto 57.2 % (45-73); Platelet Count 226 X10*3/uL (160-400); Red Blood Count 4.63 X10*6/uL (4.20-5.50); Red Cell Distribution Width 13.5 % (11.0-16.0); White Blood Count 3.6 X10*3/uL (4.8-10.8)
[2022-05-20 15:33] LABS: Alanine Aminotransferase 25 U/L (0-31); Albumin Level 3.8 g/dL (3.5-5.0); Alkaline Phosphatase 56 U/L (39-117); Anion Gap 12 (12-20); Aspartate Amino Transferase 17 U/L (5-31); Bilirubin Total 0.5 mg/dL (0.0-1.0); Blood Urea Nitrogen 16 mg/dL (9-16); Calcium 8.8 mg/dL (8.4-10.2); Carbon Dioxide 24 mmol/L (22-29); Chloride 105 mmol/L (96-108); Estimated Glomerular Filt Rate > 60; Glucose Random 85 mg/dL (60-115); Potassium 4.2 mmol/L (3.3-5.1); Sodium 137 mmol/L (135-145); Total Protein 6.9 g/dL (6.5-8.0)
[2022-05-25 02:49] LABS: Immunoglobulin E 4 kU/L (<OR=114)
== END 2022-05-20 13:27 | disposition home or self-care (01) ==
LOC: HO.LAB 13:26
PROVIDERS: Internal Medicine Medical Oncology; PCP Internal Medicine; Visit Provider Internal Medicine
DX: J45.909 Unspecified asthma, uncomplicated (principal); G47.33 Obstructive sleep apnea (adult) (pediatric); D72.819 Decreased white blood cell count, unspecified; E66.01 Morbid (severe) obesity due to excess calories; J30.9 Allergic rhinitis, unspecified; R40.0 Somnolence; Z79.899 Other long term (current) drug therapy
CPT/HCPCS: 36415; 80053; 82785; 85025; 99212

== ENCOUNTER → 2022-06-09 13:00 | Outpatient (REF) | payer MEDICAID, SELFPAY | LOC: HO.SL 13:00 | PROVIDERS: Visit Provider Internal Medicine | DX: G47.33 Obstructive sleep apnea (adult) (pediatric) (principal); E66.01 Morbid (severe) obesity due to excess calories; R40.0 Somnolence | CPT/HCPCS: 95806 ==

== ENCOUNTER → 2022-06-24 13:48 | Outpatient (BNVA) | payer MEDICAID, SELFPAY | PROVIDERS: PCP Internal Medicine; Visit Provider Internal Medicine | DX: J45.909 Unspecified asthma, uncomplicated (principal); G47.33 Obstructive sleep apnea (adult) (pediatric); E66.01 Morbid (severe) obesity due to excess calories; Z68.42 Body mass index [BMI] 45.0-49.9, adult | CPT/HCPCS: 99212 ==

== ENCOUNTER 2022-07-23 08:47 | Outpatient (REF) | payer MEDICAID, SELFPAY ==
[2022-07-23 11:05] LABS: Hemoglobin 12.6 g/dl (12.0-16.0); Mean Corpuscular HGB Conc 31.5 g/dl (31.0-35.0); Mean Corpuscular Hemoglobin 26.5 pg (27.0-33.0); Mean Platelet Volume 11.4 fL (9.4-12.3); Platelet Count 217 X10*3/uL (160-400); Red Blood Count 4.76 X10*6/uL (4.20-5.50); Red Cell Distribution Width 13.4 % (11.0-16.0); White Blood Count 3.7 X10*3/uL (4.8-10.8)
[2022-07-23 11:51] LABS: TSH reflex Free T4 1.09 uIU/mL (0.32-4.0)
== END 2022-07-23 08:48 | disposition home or self-care (01) ==
LOC: HO.LAB 08:47
PROVIDERS: PCP Internal Medicine; Visit Provider Advanced Practice Midwife
DX: N93.9 Abnormal uterine and vaginal bleeding, unspecified (principal); M79.7 Fibromyalgia; Z30.433 Encounter for removal and reinsertion of intrauterine contraceptive device; Z79.899 Other long term (current) drug therapy
CPT/HCPCS: 36415; 58100; 58300; 58301; 81025; 84443; 85027; 88305; 99212; J7298

== ENCOUNTER → 2022-07-30 13:06 | Outpatient (BNVA) | payer MEDICAID, SELFPAY | PROVIDERS: PCP Internal Medicine; Visit Provider Advanced Practice Midwife ==

== ENCOUNTER 2022-08-04 14:29 | Outpatient (REF) | payer MEDICAID, SELFPAY ==
--- NOTE | ~2022-08-04 | US_ITS ---
EXAMINATION: US PELVIS CLINICAL INFORMATION: Abnormal uterine bleeding; the last menstrual period was on 06/29/2022. COMPARISON: Pelvic ultrasound dated 10/06/2021. TECHNIQUE: Ultrasound of the pelvis is performed using both transabdominal and transvaginal transducers along with Doppler. Transvaginal imaging is performed due to inadequate visualization transabdominally. FINDINGS: Uterus: The uterus is anteverted and measures 10.8 x 3.8 x 5.0 cm. The uterus is anteverted and anteflexed. The double wall endometrial thickness is seen mm. An intrauterine device is seen, properly situated within the dependent pelvis. The uterus is smooth in contour and has normal myometrial echogenicity. No visible fibroid. Adnexa: The right ovary is not visualized. The left ovary is visualized. There is normal abnormal color flow to the adnexa. There is no ovarian torsion. There is no pelvic ascites or fluid collection. The left ovary measures 3.4 x 1.9 x 2.0 cm, volume 6.6 mL. The left ovary contains a 2.0 cm dominant simple cyst. This is a benign finding, for which no imaging follow-up is recommended. US/US pelvic and transvaginal IMPRESSION: 1. An intrauterine device is seen, properly situated within the endometrial canal. 2. The right ovary is nonvisualized. 3. A 2.0 cm benign, simple left ovarian cyst is seen, for which no imaging follow-up is recommended.
== END 2022-08-04 14:30 | disposition home or self-care (01) ==
LOC: HO.US 14:29
PROVIDERS: PCP Internal Medicine; Visit Provider Advanced Practice Midwife
DX: N93.9 Abnormal uterine and vaginal bleeding, unspecified (principal)
CPT/HCPCS: 76830; 76856

== ENCOUNTER → 2022-08-31 12:56 | Outpatient (BNVA) | payer MEDICAID, SELFPAY | PROVIDERS: PCP Internal Medicine; Visit Provider Advanced Practice Midwife | DX: N71.1 Chronic inflammatory disease of uterus (principal); N93.9 Abnormal uterine and vaginal bleeding, unspecified; N94.9 Unspecified condition associated with female genital organs and menstrual cycle; B00.9 Herpesviral infection, unspecified; Z97.5 Presence of (intrauterine) contraceptive device | CPT/HCPCS: 99212 ==

== ENCOUNTER 2022-10-12 07:56 | Outpatient (REF) | payer MEDICAID, SELFPAY ==
--- NOTE | ~2022-10-12 | XR_ITS ---
EXAMINATION: XR HAND, RIGHT CLINICAL INFORMATION: Pain COMPARISON: Hand radiographs 05/23/2019 TECHNIQUE: 3 views of the hand FINDINGS: No fracture or dislocation. Joint spaces are maintained. No cortical erosion. Soft tissues are unremarkable. XR/XR hand RT min 3V IMPRESSION: No acute osseous abnormality.
== END 2022-10-12 07:57 | disposition home or self-care (01) ==
LOC: HO.HOSX 07:56
PROVIDERS: Visit Provider Orthopaedic Surgery
DX: M79.641 Pain in right hand (principal)
CPT/HCPCS: 73130; 99212

== ENCOUNTER 2022-10-15 07:50 | Outpatient (REF) | payer MEDICAID, SELFPAY ==
--- NOTE | ~2022-10-15 | XR_ITS ---
EXAMINATION: XR KNEE, RIGHT CLINICAL INFORMATION: Pain COMPARISON: 10/03/2017 TECHNIQUE: AP standing view of bilateral knees. Lateral and sunrise views of the right knee. FINDINGS: Right knee: Mild medial joint space narrowing with small medial marginal osteophytes. Tiny posterior patellar osteophytes. Single view of the left knee: Mild medial joint space narrowing with small medial marginal osteophytes. Sclerotic focus overlying the proximal aspect of the tibia is stable. XR/XR knee RT 2V IMPRESSION: Mild degenerative changes.
--- NOTE | ~2022-10-15 | XR_ITS ---
EXAMINATION: XR KNEE, RIGHT CLINICAL INFORMATION: Pain COMPARISON: 10/03/2017 TECHNIQUE: AP standing view of bilateral knees. Lateral and sunrise views of the right knee. FINDINGS: Right knee: Mild medial joint space narrowing with small medial marginal osteophytes. Tiny posterior patellar osteophytes. Single view of the left knee: Mild medial joint space narrowing with small medial marginal osteophytes. Sclerotic focus overlying the proximal aspect of the tibia is stable. XR/XR knee standing BI IMPRESSION: Mild degenerative changes.
== END 2022-10-15 07:51 | disposition home or self-care (01) ==
LOC: HO.HOSX 07:50
PROVIDERS: Visit Provider Physician Assistant
DX: M17.11 Unilateral primary osteoarthritis, right knee (principal)
CPT/HCPCS: 20610; 73560; 73565; 99202; J1040

== ENCOUNTER 2022-11-15 13:32 | Outpatient (REF) | payer MEDICAID, SELFPAY ==
--- NOTE | ~2022-11-15 | MM_ITS ---
EXAMINATION: MM SCREENING DIGITAL BREAST TOMOSYNTHESIS, BILATERAL CLINICAL INFORMATION: Screening. Asymptomatic. The patient had a bilateral breast reduction in 2001. The lifetime risk of breast cancer based on the Tyrer-Cuzick Model is 8.7%. COMPARISON: Mammography: This study is compared with prior exams dating back to 2018. TECHNIQUE: Digital breast tomosynthesis is performed in both the craniocaudal and mediolateral oblique views along with computer-aided detection (CAD). Synthesized 2D images are generated from the tomosynthesis. FINDINGS: There are scattered areas of fibroglandular density (ACR BI-RADS breast composition Category b). There are no significant masses, abnormal calcifications, or other abnormalities. MM/MM tomosynthesis screening BI IMPRESSION: No mammographic evidence of malignancy. ASSESSMENT: BI-RADS BI-RADS 1 - Negative RECOMMENDATION: Routine annual mammography screening. 1 year F/U This examination should not preclude the clinical evaluation of a suspicious palpable abnormality. This patient's information was entered into a reminder system with a target due date for their next mammogram.
== END 2022-11-15 13:33 | disposition home or self-care (01) ==
LOC: HO.MAMMO 13:32
PROVIDERS: PCP Internal Medicine; Visit Provider Internal Medicine
DX: Z12.31 Encounter for screening mammogram for malignant neoplasm of breast (principal)
CPT/HCPCS: 77063; 77067

== ENCOUNTER → 2022-11-15 13:45 | Outpatient (BNV) | payer MEDICAID, SELFPAY | PROVIDERS: PCP Internal Medicine; Visit Provider Radiology Diagnostic Radiology | DX: Z12.31 Encounter for screening mammogram for malignant neoplasm of breast (principal) | CPT/HCPCS: 77063; 77067 ==

== ENCOUNTER 2022-11-30 11:30 | Outpatient (RCR) | payer MEDICAID, SELFPAY ==
--- NOTE | 2022-11-08 11:56 | MHC.OT.EP ---
[address] [phone] Occupational Therapy Plan of Care Patient Name: Windy Chowdhury Date of Evaluation: 11/08/22 Diagnosis: Right hand pain Pain Location: Radiates volar wrist to lateral elbow, numbness in right D4-D5 Pain free at rest, 4-5/10 w/ general use Pain Score: 5 Pain Scale Used: Numeric (0 - 10) Aggravating Factors: Lifting, carrying, sleeping Alleviating Factors: Brace at nighttime, has not tried heat/cold modalities, uses cream Assessment: Pt w/ hx of pain and numbness in right arm, now more specifically in ulnar aspect of hand and radiating up to elbow, worsening over the past few months. She reports difficulty w/ sleeping and with heavier daily activities. On assessment, she has good range, strength, sensation and coordination. No significant objective findings, although report is consistent w/ mild cubital tunnel syndrome. She will benefit from brief course for education on joint protection and activities modification, with addition of ulnar nerve glides and general upper body stretching and strengthening routine. Frequency and Duration: The patient will be seen 2x/wk for 3 weeks Short Term Goals: Ind w/ HEP Ind w/ sleep modifications Pt to report ease of pain/numbness/tingling w/ modifications Pt to demo good carry over w/ elbow protection techniques for daily activities Treatment Plan: Therapeutic Exercise Therapeutic Activity Home Exercise Program Splinting Neuro Re-ed Patient Education ADL Training Ultrasound MHP Soft Tissue Mobilization Kinesiotaping Electronically Signed By: Mehnaz Young OTR/L CHT Please Sign and return to therapist. Thank you once again for your referral.
--- NOTE | 2023-01-17 11:07 | MHC.OT.DC ---
[address] [phone] F: [phone] Occupational Therapy Discharge Note Patient Name: Windy Chowdhury Provider: Dr Machelle Moeller Diagnosis: Right hand pain Date of Surgery: Date of Evaluation: 11/08/22 Date of Discharge: 01/17/23 Treatments to Date: 3 Cancellations to Date: 1 No Shows to Date: 1 Discharge Status: Patient Elected to Stop Visit Non-compliance Discharge Summary: Windy was referred to OT w/ right hand pain and numbness. She has been educated on home program for joint protection, activity modification and HEP for ulnar neuropathy, but she has missed two appointments and not followed up in over a month. We will be discharging at this time. Electronically Signed By: LORI Sutton/Tyrel Reviewed/agree with student documentation: Therapist: Please Sign and return to therapist, thank you for your referral.
== END 2023-01-17 11:07 | disposition home or self-care (01) ==
LOC: HO.OT 11:30
PROVIDERS: PCP Internal Medicine; Visit Provider Orthopaedic Surgery
DX: M79.641 Pain in right hand (principal)
CPT/HCPCS: 97035; 97110; 97165

== ENCOUNTER 2022-12-30 14:00 | Outpatient (AMB) | payer MEDICAID, SELFPAY ==
[2022-12-30 14:16] VITALS: PULSE 83; O2SAT 97; BMI 46.2
--- NOTE | 2022-12-30 14:16 | MHC.OFFVIS ---
Intake Vital Signs 12/30/22 14:16 Height 5 ft 5 in Weight 277 lb 12.519 oz BMI 46.2 Pulse 83 Pulse Source Pulse Oximeter Pulse Oximetry (%) 97 Oxygen Delivery Method Room Air Intake Visit Reasons: Sleep Study Follow Up Automatic Print Developer Required: No Primary Products Inspectors: Primary Products Inspectors offered & declined Accompanied by: Self / Same As Patient Allergies ciprofloxacin [From CIPRO] Allergy (Severe, Verified 12/30/22 16:09) GI PAIN vancomycin Allergy (Unknown, Uncoded 12/30/22 16:09) anaphylaxis Medication List - Last Reconciled 12/30/22 by Reggie Schmidt MD albuterol sulfate mg inhalation QID PRN albuterol sulfate 90 mcg/actuation (ProAir HFA) 2 puffs inhalation Q6H PRN baclofen 20 mg PO TID cholecalciferol (vitamin D3) 50 mcg PO DAILY clonazepam 0.5 mg PO DAILY PRN dicyclomine 20 mg PO TID fexofenadine (Amada Allergy) 180 mg PO DAILY fluconazole 150 mg PO Q3D PRN fluticasone propionate 110 mcg/actuation (Flovent HFA) 110 mcg inhalation DAILY gabapentin 300 mg PO TID ibuprofen 600 mg PO Q6H PRN levonorgestrel (Mirena) 20 mcg intrauterine DAILY montelukast 10 mg PO QPM pantoprazole 40 mg PO DAILY sertraline 75 mg PO DAILY ustekinumab (Stelara) 90 mg subcut Q8W valacyclovir 1,000 mg PO DAILY zolpidem (Ambien) 10 mg PO BEDTIME PRN Do you need a note to return to daycare/school/sports/work: No HPI Sleep Study Follow Up HPI Details THIS 47 YEARS OLD FEMALE COMES FOR FOLLOW-UP, . FOR SLEEP APNEA AND BRONCHIAL ASTHMA HER SLEEP STUDY SHOWED MILD TANA, AND SHE HAS OPTED TO TREAT WITH CONSERVATIVE MEASURES INCLUDING WEIGHT LOSS AND POSITION THERAPY. SHE HAS NOT BEEN ABLE TO LOSE ANY WEIGHT RATHER. HAS GAINED A FEW LB SHE TRIES TO SLEEP IN LATERAL POSITION. SHE TELLS ME THAT SHE SLEEPS AT LEAST FOR 6 HOURS PER NIGHT. SHE IS NOT AWARE OF MUCH SNORING. SHE DOES NOT HAVE ANY DAYTIME SOMNOLENCE. HOWEVER SHE HAS NOT LOST ANY WEIGHT RATHER GAINED A FEW LB. FOR BRONCHIAL ASTHMA SHE USES THE FLOVENT 2 PUFFS B.I.D. AND PROAIR JUST NEEDED. SHE HAS NO ISSUES AND BREATHING STATUS IS REMAINS STABLE AND CONTROLLED [facility] Medical History Somnolence, daytime TANA (obstructive sleep apnea) Allergic rhinitis Bronchial asthma Trigger finger Dysuria Obesity, morbid, BMI 40.0-49.9 Encounter for Papanicolaou smear for cervical cancer screening Asthma Insomnia Crohn's disease Surgical History History of carpal tunnel surgery Hx of laparoscopic gastric banding Hx of breast reduction, elective Family History Father HIV (human immunodeficiency virus infection) Mother Hypertension Maternal Grandmother Diabetes mellitus Maternal Grandfather Hypertension Lymphoma Paternal Grandfather No problems noted. 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/ Gender identity: Female Female Reproductive History Menstrual Age of Menarche: 13 Review of Systems Const All systems reviewed & are unremarkable except as noted in HPI and below Eyes Reports no additional complaints ENT Reports nasal congestion (MILD OFF AND ON) Card Denies chest pain, Denies irregular heart rhythm and Denies leg edema Resp Reports as per HPI GI Reports no additional complaints and Reports other (BEING TREATED FOR CROHN'S DISEASE) Reports no additional complaints Musc Reports no additional complaints Skin/Breast Reports system reviewed and no additional complaints, except as documented Neuro Reports no additional complaints Psych Reports no additional complaints and Reports depression (MILD DEPRESSION BEING TREATED WITH SERTRALINE) Endo Reports no additional complaints Physical Exam Vital Signs: Last Vital Signs Pulse 83 12/30/22 14:16 Pulse Ox 97 12/30/22 14:16 Oxygen Delivery Method Room Air 12/30/22 14:16 BMI result Body Mass Index 46.2 THERE IS EVIDENCE OF WEIGHT LOSS BY 9 LB Const General: healthy appearing (EXCEPT FOR BEING OVERWEIGHT), comfortable, no acute distress, alert and awake Orientation/consciousness: patient oriented x3 HEENT Head: Yes normal to inspection General nose exam: No nasal polyps present and No nasal discharge present Face and sinus: Yes sinuses nontender Mouth: oropharynx normal Throat: No posterior oropharynx normal (NARROW AND CROWDED, MALLAMPATI CLASS 3) Eyes General: appearance normal, both eyes and all related structures Neck Neck: Yes normal visual inspection, Yes no lymphadenopathy, Yes trachea midline and Yes no JVD Thyroid: Thyroid normal Chest Chest palpation & inspection: normal inspection of the chest, normal palpation of entire chest wall and no tenderness Resp Effort & Inspection: normal respiratory effort Auscultation: clear to auscultation bilaterally, no crackles, no rhonchi and no wheezes Cardio Palpation: normal PMI Rate: regular rate Rhythm: regular rhythm Heart sounds: no gallops and no murmurs Peripheral pulses: Peripheral pulses 2+ throughout GI Palpation (GI): Soft to palpation, nontender, No hepatosplenomegaly present and no masses Auscultation: normal bowel sounds Back/Spine/Pelvis Thoracic/Lumbar Spine: thoracic and lumbar spine normal to inspection Skin General skin exam: no rashes or lesions noted Neuro General: patient oriented x3 and no focal motor deficits Cranial nerves: Yes CN's II-XII intact bilaterally Extrem General: Yes normal to inspection, Yes no clubbing, cyanosis or edema and Yes no calf tenderness Psych Appearance: grossly abnormal and poorly kempt Speech and movement: Normal speech and movement present Assessment & Plan Assessment & Plan (1) TANA (obstructive sleep apnea): Comment: SHE WAS DIAGNOSED TO HAVE A MILD DEGREE OF TANA BACK IN 2017. REPEAT HOME-BASED SLEEP STUDY ON 06/09/22 AGAIN SHOWED MILD DEGREE OF OBSTRUCTIVE SLEEP APNEA WITH TOTAL SLEEP TIME AHI 11.9. SLEEP APNEA IS MOSTLY POSITIONAL, IN SUPINE POSITION, SUPINE AHI 14.3 AND LATERAL POSITION AHI 2.1. THERE WAS SOME NOCTURNAL HYPOXEMIA WELL/ PATIENT HAD OPTED TO TREAT THIS WAS CONSERVATIVE MEASURES. SHE CLAIMS THAT SHE, DOES SLEEP IN THE LATERAL POSITION . SHE SLEEPS FOR 6 HOURS OR MORE. DENIES ANY DAYTIME SOMNOLENCE. UNFORTUNATELY HAS NOT BEEN ABLE TO LOSE WEIGHT RATHER HAS PUT ON A FEW LBs. HAD A GOOD DISCUSSION WITH HER. I STRESS THAT SHE HAS TO LOSE WEIGHT. CONTINUE SLEEPING IN LATERAL POSITION. WILL RECHECK IN 3 MONTHS, IF SHE IS NOT SUCCEEDING THEN SHE SHE WILL BE BETTER OF STARTING ON THE CPAP. Code(s): G47.33 - Obstructive sleep apnea (adult) (pediatric) (2) Allergic rhinitis: Comment: SHE HAS MILD INTERMITTENT CHRONIC ALLERGIC RHINITIS. OKAY TO CONTINUE USING FEXOFENADINE 180 MG ONCE A DAY P.R.N. CONTINUE MONTELUKAST 10 MG DAILY. SHE WAS TOLD BY THE EYE DOCTOR THAT HER DRYNESS OF THE EYES MAY BE DUE TO MONTELUKAST, BUT SHE SAY IS IT HAS HELPED TO REDUCE. HER NASAL SYMPTOMS I SUGGESTED THAT SHE CAN USE SALINE EYEDROPS. FOR LUBRICATION Code(s): J30.9 - Allergic rhinitis, unspecified (3) Bronchial asthma: Comment: PATIENT DOES HAVE LONGSTANDING HISTORY OF BRONCHIAL ASTHMA. IT HAS BEEN MILD, INTERMITTENT , IT SEEMS THAT SHE HAS ALLERGIC TYPE OF BRONCHIAL ASTHMA, HOWEVER DIFFERENTIAL COUNT DOES NOT SHOW EOSINOPHILIA, AND IGE LEVEL IS NORMAL . TREATMENT PLAN AGAIN DISCUSSED WITH HER. ADVISED TO CONTINUE : FLOVENT-1102 PUFFS B.I.D. . ALBUTEROL HFA 2 PUFFS Q 4-6 HOURS P.R.N.. SINGULAIR 10 MG DAILY. Code(s): J45.909 - Unspecified asthma, uncomplicated Coding Level of Care Code Est Pt Level 4 (89125) Diagnoses TANA (obstructive sleep apnea) G47.33 Allergic rhinitis J30.9 Bronchial asthma J45.909
== END 2022-12-30 14:44 | disposition home or self-care (01) ==
PROVIDERS: PCP Internal Medicine; Visit Provider Internal Medicine
DX: G47.33 Obstructive sleep apnea (adult) (pediatric) (principal); J30.9 Allergic rhinitis, unspecified; J45.909 Unspecified asthma, uncomplicated
CPT/HCPCS: 99214

== ENCOUNTER → 2022-12-30 14:00 | Outpatient (BNVA) | payer MEDICAID, SELFPAY | PROVIDERS: PCP Internal Medicine; Visit Provider Internal Medicine | DX: G47.33 Obstructive sleep apnea (adult) (pediatric) (principal); J45.909 Unspecified asthma, uncomplicated; J30.9 Allergic rhinitis, unspecified | CPT/HCPCS: 99212 ==

== ENCOUNTER 2022-12-31 14:39 | Outpatient (REF) | payer MEDICAID, SELFPAY ==
[2022-12-31 16:10] LABS: MANUAL DIFF FLAG NO
[2022-12-31 16:22] LABS: Estimated Average Glucose 94 mg/dL; Hemoglobin A1c % 4.9 % (<6.0)
[2022-12-31 16:26] LABS: Basophils Absolute Auto 0.1 X10*3/uL (0.0-0.2); Eosinophils Percent Auto 0.6 % (0-4); Imm Gran Abs Auto 0.02 X10*3/uL (0.00-0.03); Imm Gran Pct Auto 0.4 % (0.0-0.4); Lymphocytes Absolute Auto 1.6 X10*3/uL (1.2-4.9); Lymphocytes Percent Auto 30.8 % (20-40); Mean Corpuscular HGB Conc 31.7 g/dl (31.0-35.0); Mean Corpuscular Hemoglobin 27.1 pg (27.0-33.0); Mean Corpuscular Volume 85.4 fL (80.0-98.0); Mean Platelet Volume 10.9 fL (9.4-12.3); Monocytes Absolute Auto 0.6 X10*3/uL (0.1-1.2); Monocytes Percent Auto 10.8 % (2-11); Neutrophils Absolute Auto 2.9 x10*3/uL (2.0-8.3); Neutrophils Percent Auto 56.4 % (45-73); Platelet Count 251 X10*3/uL (160-400); White Blood Count 5.1 X10*3/uL (4.8-10.8)
[2022-12-31 16:37] LABS: Anion Gap 10 (12-20); Blood Urea Nitrogen 10 mg/dL (9-16); Calcium 9.2 mg/dL (8.4-10.2); Carbon Dioxide 28 mmol/L (22-29); Chloride 104 mmol/L (96-108); Estimated Glomerular Filt Rate > 60; Glucose Random 87 mg/dL (60-115); Magnesium 2.1 mg/dL (1.6-2.6); Potassium 4.3 mmol/L (3.3-5.1); Sodium 138 mmol/L (135-145)
[2022-12-31 16:54] LABS: TSH reflex Free T4 1.23 uIU/mL (0.32-4.0)
== END 2022-12-31 14:40 | disposition home or self-care (01) ==
LOC: HO.HHCL 14:39
PROVIDERS: Visit Provider Emergency Medicine
DX: R00.2 Palpitations (principal); R42 Dizziness and giddiness
CPT/HCPCS: 36415; 80048; 83036; 83735; 84443; 85025

== ENCOUNTER 2023-01-21 10:59 | Outpatient (AMB) | payer MEDICAID, SELFPAY ==
--- NOTE | 2023-01-21 11:29 | MHC.OFFVIS ---
Intake Vital Signs 01/21/23 11:30 Height 5 ft 5 in Weight 281 lb 4 oz BMI 46.8 BP 126/78 Blood Pressure Location Lt brachial Position Sitting Respiration 16 Pulse 72 Pulse Source Pulse Oximeter Pulse Oximetry (%) 96 Oxygen Delivery Method Room Air Intake Visit Reasons: left leg/foot pain Allergies ciprofloxacin [From CIPRO] Allergy (Severe, Verified 01/21/23 11:04) GI PAIN vancomycin Allergy (Unknown, Uncoded 12/30/22 16:09) anaphylaxis HPI HPI Comments History of Present Illness Details Windy is a very pleasant 47-year-old female who presented to the office today for evaluation and management of her left foot pain. Patient endorses left foot pain for more than 7 years without inciting injury. Patient states that she has been told she has plantar fasciitis and also peripheral neuropathy. She is not diabetic. She has been under treatment of Podiatry where she has received cortisone injections in both feet that provided her minimal relief therefore her armature rewinder stated he will not be doing injections moving forward. Patient has pain rated as 5/10 today, aching and burning to both feet though she reports the left foot is worse than the right. She says the burning aching pain in her feet starts on the bottom and will radiate up into her ankles and lower calves. She says it feels like she is walking on bubbles. Patient also complaining of bilateral lower back pain without radiation into her buttocks thighs or lower extremities. This pain is also described as aching. Patient denies red flag symptoms including new loss of bowel, bladder or saddle anesthesia. Patient has not attempted physical therapy for her pain. She is currently taking Tylenol and gabapentin with minimal relief. She had a recent MRI of her lower back, results as per below. In terms of muscle damage condition is described as sharp, throbbing, pinching and burning. The pain is negatively impacting the patient's normal sleep, normal activities, normal function and overall mood. [facility] Medical History Somnolence, daytime TANA (obstructive sleep apnea) Allergic rhinitis Bronchial asthma Trigger finger Dysuria Obesity, morbid, BMI 40.0-49.9 Encounter for Papanicolaou smear for cervical cancer screening Asthma Insomnia Crohn's disease Surgical History History of carpal tunnel surgery Hx of laparoscopic gastric banding Hx of breast reduction, elective Family History Father HIV (human immunodeficiency virus infection) Mother Hypertension Maternal Grandmother Diabetes mellitus Maternal Grandfather Hypertension Lymphoma Paternal Grandfather No problems noted. 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 Answers questions appropriately. Fully engaged in examination. Skin: warm, dry, intact HEENT: Normocephalic. Hearing intact. Cardiac: External chest normal in appearance. Respiratory: No cough, audible wheezing or stridor. Abdomen: without gross distension. MS: No obvious swelling or deformities. Able to stand on bilateral tiptoes and bilateral heels.? Able to transition from sit to stand unassisted. Ambulates with bilaterally normal heel strike and toe off ROM: extension to 15 degrees. flexion to 100 degrees Strength: 5/5 BLE Sensation: intact and symmetric BLE DTR: intact and symmetric Straight leg raises with and without dorsiflexion negative bilaterally Facet loading positive bilaterally DIONICIO positive bilaterally SI compression negative bilaterally Gaenslen negative bilaterally Thigh thrust negative bilaterally Neurological: Oriented to person, place, time and situation. Thought process intact. Psychiatric: Appropriate mood and affect. Good judgment and insight. Results Reviewed Results Reviewed: 01/04/23 PROCEDURE: MR SPINE LUMBAR without CONTRAST FINDINGS: Routine spinal anatomy is presumed. There are no comparison examinations. The last well-formed intervertebral disc is annotated as L5-S1. A saved screen has been sent to PACS for reference. Normal lumbar alignment is demonstrated. Vertebral heights are well maintained. Bone marrow signal is within normal limits, and no suspicious osseous lesion is identified. Conus medullaris is unremarkable. Paraspinal soft tissues and visualized portions of the abdomen and pelvis are unremarkable. At T12-L1 no significant disc bulging. No central canal or neural foraminal narrowing. At L1-2 there is no significant disc bulging. No central canal or neural foraminal narrowing. At L2-3 there is no significant disc bulging. Mild facet arthropathy. No central canal or neural foraminal narrowing. At L3-4 there is no significant disc bulging. Mild bilateral facet arthropathy. No central canal or neural foraminal narrowing. At L4-5 there is mild annular bulging within the left foraminal region. Bilateral facet arthropathy with mild ligamentum flavum thickening. Mild neural foraminal narrowing greater on the left. No central canal narrowing. At L5-S1 there is disc desiccation. Mild annular bulging. Mild facet arthropathy. Mild neural foraminal narrowing. No central canal narrowing. IMPRESSION: No evidence of acute fracture or traumatic subluxation of the lumbar spine. Mild spondylitic change of the lumbar spine as described. Assessment & Plan Assessment & Plan (1) Plantar fasciitis, bilateral: Code(s): M72.2 - Plantar fascial fibromatosis (2) Lumbar spondylosis: Code(s): M47.816 - Spondylosis without myelopathy or radiculopathy, lumbar region (3) Peripheral neuropathy: Code(s): G62.9 - Polyneuropathy, unspecified Plan Windy is a very pleasant 47 year old female who presented to the office today for evaluation and management of her chronic bilateral feet and lower back pain. History, physical exam and provocative testing consistent with bilateral painful peripheral neuropathy and lumbar spondylosis. Order has been placed for PT eval and treat for her feet and back. Discussed options for treatment including diagnostic interventional testing, epidural steroid injections, peripheral nerve stimulation with Sprint, RFA and more permanent neuromodulation. Informational pamphlets provided. Will plan for Qutenza topical Capsaicin in office application for bilateral peripheral neuropathy. Discussed Fluoroscopy guided diagnostic bilateral L3-L4 DR L5 MBB's with local anesthetic for lumbar spondylosis should pain persist after PT with plan to follow with Sprint. Patient given pamphlet for Nevro SCS and Advantage point. Discussed option for treament with SCS, trial followed by implant if positive results of the trial. Patient aware that implantable device would require MH eval prior to scheduling. She would like to reserve SCS option for last resort as this is the most invasive. All questions and concerns have been answered and patient agrees with the plan. Follow up after PT and sooner if needed. Orders: Orders PT Evaluation and Treatment Today M72.2 - Plantar fascial fibromatosis PT Evaluation and Treatment Today M47.816 - Spondylosis without myelopathy or radiculopathy, lumbar region Coding Level of Care Code New Pt Level 4 (09107) Diagnoses Plantar fasciitis, bilateral M72.2 Lumbar spondylosis M47.816 Peripheral neuropathy G62.9
[2023-01-21 11:30] VITALS: BP 126/78; PULSE 72; RESP 16; O2SAT 96; BMI 46.8
== END 2023-01-21 11:45 | disposition home or self-care (01) ==
PROVIDERS: PCP Internal Medicine; Visit Provider Registered Nurse Emergency
DX: M72.2 Plantar fascial fibromatosis (principal); M47.816 Spondylosis without myelopathy or radiculopathy, lumbar region; G62.9 Polyneuropathy, unspecified
CPT/HCPCS: 99204

== ENCOUNTER → 2023-01-21 10:59 | Outpatient (BNVA) | payer MEDICAID, SELFPAY | PROVIDERS: PCP Internal Medicine; Visit Provider Registered Nurse Emergency | DX: M72.2 Plantar fascial fibromatosis (principal); M47.816 Spondylosis without myelopathy or radiculopathy, lumbar region; G62.9 Polyneuropathy, unspecified | CPT/HCPCS: 99212 ==

== ENCOUNTER 2023-03-01 13:18 | Outpatient (AMB) | payer MEDICAID, SELFPAY ==
[2023-03-01 13:20] VITALS: BP 125/62; PULSE 72; BMI 48.3
--- NOTE | 2023-03-01 13:20 | A.OFFVIS_ITS ---
Intake Vital Signs 03/01/23 13:20 Height 5 ft 5 in Weight 290 lb BMI 48.3 BP 125/62 Blood Pressure Location Rt brachial Position Sitting Pulse 72 Intake Visit Reasons: Bilateral axilla lipoma Intake Note: Patient referred for bilateral axilla lipoma. Present for 1yr. Tender to touch. Denies oozing. Had lipoma removed on Rt axilla about 10 yrs ago. Lead Quality Control Technician Required: No Accompanied by: Self / Same As Patient Allergies ciprofloxacin [From CIPRO] Allergy (Severe, Verified 03/01/23 13:27) GI PAIN vancomycin Allergy (Unknown, Uncoded 03/01/23 13:27) anaphylaxis Medication List - Last Reconciled 03/01/23 by Cuauhtemoc Tolliver MD albuterol sulfate mg inhalation QID PRN albuterol sulfate 90 mcg/actuation (ProAir HFA) 2 puffs inhalation Q6H PRN baclofen 20 mg PO TID cholecalciferol (vitamin D3) 50 mcg PO DAILY clonazepam 0.5 mg PO DAILY PRN dicyclomine 20 mg PO TID fexofenadine (Amada Allergy) 180 mg PO DAILY fluconazole 150 mg PO Q3D PRN fluticasone propionate 110 mcg/actuation (Flovent HFA) 110 mcg inhalation DAILY gabapentin 300 mg PO TID levonorgestrel (Mirena) 20 mcg intrauterine DAILY montelukast 10 mg PO QPM pantoprazole 40 mg PO DAILY propranolol 10 mg PO BID sertraline 75 mg PO DAILY ustekinumab (Stelara) 90 mg subcut Q8W valacyclovir 1,000 mg PO DAILY zolpidem (Ambien) 10 mg PO BEDTIME PRN HPI HPI Comments History of Present Illness Details Patient has had 1/2-2 year history of bilateral axillary pain and fullness. She has irregular menses and is not noted association of the symptoms with premenstrual cycle. She denies any fever, chills, night sweats, weight loss. Patient had a right axillary soft tissue mass excised several years ago pathology which she is unclear. Patient had recent mammograms which were within normal limits. SHe has no breast issues or complaints. Chart was reviewed patient evaluated [facility] Medical History Somnolence, daytime TANA (obstructive sleep apnea) Allergic rhinitis Bronchial asthma Trigger finger Dysuria Obesity, morbid, BMI 40.0-49.9 Encounter for Papanicolaou smear for cervical cancer screening Asthma Insomnia Crohn's disease Surgical History History of carpal tunnel surgery Hx of laparoscopic gastric banding Hx of breast reduction, elective Family History Father HIV (human immunodeficiency virus infection) Mother Hypertension Maternal Grandmother Diabetes mellitus Maternal Grandfather Hypertension Lymphoma Paternal Grandfather No problems noted. 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 Chest Other: Chest breath sounds bilaterally, breast exam is benign. Bilateral axillary exam demonstrates almost mirror image deep soft tissue masses consistent with single adenopathy. No periclavicular or cervical adenopathy bilaterally. GI Other: Abdomen very corpulent, soft, benign Extrem Other: Grossly intact all 4 Assessment & Plan Assessment & Plan (1) Mass of left axilla: Code(s): R22.32 - Localized swelling, mass and lump, left upper limb Plan: Current plan is to arrange for bilateral axillary sonograms and direct further therapy based on these findings. Patient will see me once the studies have been completed. All questions were answered. (2) Mass of right axilla: Code(s): R22.31 - Localized swelling, mass and lump, right upper limb Orders: Orders US breast LT limited Today R22.32 - Localized swelling, mass and lump, left upper limb US breast RT limited Today R22.31 - Localized swelling, mass and lump, right upper limb, R22.32 - Localized swelling, mass and lump, left upper limb Coding Level of Care Code New Pt Level 4 (88248) Diagnoses Mass of left axilla R22.32 Mass of right axilla R22.31
== END 2023-03-01 13:34 | disposition home or self-care (01) ==
PROVIDERS: PCP Internal Medicine; Referring Provider Internal Medicine; Visit Provider Surgery
DX: R22.32 Localized swelling, mass and lump, left upper limb (principal); R22.31 Localized swelling, mass and lump, right upper limb
CPT/HCPCS: 99204

== ENCOUNTER → 2023-03-01 13:18 | Outpatient (BNVA) | payer MEDICAID, SELFPAY | PROVIDERS: PCP Internal Medicine; Referring Provider Internal Medicine; Visit Provider Surgery | DX: R22.32 Localized swelling, mass and lump, left upper limb (principal); R22.31 Localized swelling, mass and lump, right upper limb | CPT/HCPCS: 99202 ==

== ENCOUNTER 2023-03-08 13:24 | Outpatient (AMB) | payer MEDICAID, SELFPAY ==
--- NOTE | 2023-03-08 13:30 | A.OFFVIS_ITS ---
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 Machining Supervisor Required: No Information Interpreted: non-clinical & clinical Traffic Safety Administrator: Traffic Safety Administrator Present (Aidyn) Allergies ciprofloxacin [From CIPRO] Allergy (Severe, Verified 03/08/23 13:38) GI PAIN vancomycin Allergy (Unknown, Uncoded 03/08/23 13:38) anaphylaxis Medication List - Last Reconciled 03/08/23 by Kylee Rodriguez CNM albuterol sulfate mg inhalation QID PRN albuterol sulfate 90 mcg/actuation (ProAir HFA) 2 puffs inhalation Q6H PRN baclofen 20 mg PO TID cholecalciferol (vitamin D3) 50 mcg PO DAILY clonazepam 0.5 mg PO DAILY PRN dicyclomine 20 mg PO TID fexofenadine (Amada Allergy) 180 mg PO DAILY fluconazole 150 mg PO Q3D PRN fluticasone propionate 110 mcg/actuation (Flovent HFA) 110 mcg inhalation DAILY gabapentin 300 mg PO TID levonorgestrel (Mirena) 20 mcg intrauterine DAILY loperamide mg PO Q4-6H PRN montelukast 10 mg PO QPM pantoprazole 40 mg PO DAILY propranolol 10 mg PO BID sertraline 75 mg PO DAILY ustekinumab (Stelara) 90 mg subcut Q8W valacyclovir 1,000 mg PO DAILY zolpidem (Ambien) 10 mg PO BEDTIME PRN Is last menstrual period known: Yes Last menstrual period: 03/06/23 Post menopausal: No HPI DIRECTOR ALUMNI RELATIONS annual exam HPI Details Patient is here for nitroglycerin neutralizer exam she in this last year had episodes of menorrhagia for which IUDs were exchanged and EMB was done. The bleeding pattern has improved vastly since the Mirena was replaced in June of this year. She had lost a lot a weight over the summer but then needed to go on prednisone and regained a lot of it and she has been having a lot of arthritic problems in her joints and has not been able to exercise but she is looking forward to getting some injections in those joints and hopefully if they help she can start resuming exercise that she had to leave by the homestead for a [place]. She had failed gastric bypass. [facility] Medical History (Updated 03/08/23 @ 14:37 by Kylee Rodriguez CNM) Obesity, morbid, BMI 40.0-49.9 Somnolence, daytime TANA (obstructive sleep apnea) Allergic rhinitis Bronchial asthma Trigger finger Dysuria Encounter for Papanicolaou smear for cervical cancer screening Asthma Insomnia Crohn's disease Surgical History History of carpal tunnel surgery Hx of laparoscopic gastric banding Hx of breast reduction, elective Family History Father HIV (human immunodeficiency virus infection) Mother Hypertension Maternal Grandmother Diabetes mellitus Maternal Grandfather Hypertension Lymphoma Paternal Grandfather No problems noted. 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/ Gender identity: Female Female Reproductive History Menstrual Age of Menarche: 13 Duration of menses: 8-10 days Date of last menstrual period: 03/06/23 control method: progestin IUCD Total pregnancies: 1 Full term: 1 Number of Living Children: 1 Date of last pap smear: 11/10/21 (negative) History of abnormal pap smear: Yes (2009 ASC-H, 2006 TAE 1-2) Date of Mammogram: 11/15/22 Physical Exam Vital Signs: BMI result Body Mass Index 47.9 Const General: healthy appearing, comfortable, no acute distress, well developed and alert Nutritional Appearance: average body habitus and obese Orientation/consciousness: patient oriented x3 Limitations: no limitations HEENT Head: Yes normocephalic Neck Neck: Yes normal visual inspection Chest Chest palpation & inspection: normal inspection of the chest Breast/axilla inspection: normal inspection of the breasts and normal inspection of the axillae Breast/axilla palpation: normal palpation of the breasts and normal palpation of the axillae Resp Effort & Inspection: normal respiratory effort GI Inspection: Yes normal to inspection, No Abdominal wall edema and No distended Palpation (GI): Soft to palpation and nontender Other: Cervix multiparous brownish reddish discharge consistent with menses with Mirena Mirena strings visible cervix mobile nontender uterus mobile nontender very good tone with Kegel. General: Yes bladder normal to palpation External Female Exam: normal external appearance and normal appearance of the urethra Speculum Exam - Vagina: normal appearance of the vagina, normal palpation and normal vaginal discharge Speculum Exam - Cervix: normal appearance of the cervix, normal palpation and nontender Bimanual exam- vagina & uterus: normal bimanual exam, normal palpation, uterine size normal, bladder normal to palpation, consistency normal, normal palpation, uterine mobility normal, uterine shape normal, No Cervical tenderness present, non-tender and no cervical motion tenderness Bimanual Exam- Adnexa, other: normal adnexae, no masses, normal and No adnexal tenderness Neuro General: patient oriented x3 Assessment & Plan Assessment & Plan (1) Encounter for routine checking of intrauterine contraceptive device (IUD): Code(s): Z30.431 - Encounter for routine checking of intrauterine contraceptive device (2) Well woman exam with routine gynecological exam: Code(s): Z01.419 - Encounter for gynecological examination (general) (routine) without abnormal findings (3) Encounter for Papanicolaou smear for cervical cancer screening: Comment: 07/2006- TAE 1&2 07/2015-neg pap , neg HPV. pap 05/26/20=miroslava/neg, neg HPV;pap done 11/09/21=neg w neg HPV Code(s): Z12.4 - Encounter for screening for malignant neoplasm of cervix (4) Presence of 52 mg levonorgestrel-releasing intrauterine device (IUD): Comment: Removed 11/09/2021, replaced w paragard,; later replaced again w mirena iud 2' bleeding Code(s): Z97.5 - Presence of (intrauterine) contraceptive device (5) Obesity, morbid, BMI 40.0-49.9: Comment: Reviewed resolve to resume some exercise when she has her injections for her arthritis in knees and feet.-mo'b 03/08/23. Code(s): E66.01 - Morbid (severe) obesity due to excess calories Plan -----Discussed in this visit the following: healthy balanced diet, regular and consistent exercise, getting recommended health screens, doing the best she can for her particular health concerns, kegel exercises, pap smear screening and followup recommendations, mammography screening and SBE, normal changes in cycles in her life stage--- . Reviewed this improved bleeding pattern with her Mirena IUD much improved over what she was having before. She is going to be having injections in her knees and her feet on the same day in [address] to deal with arthritic challenges in both joints. Discussed that now that she is off the prednisone and when she feels better hopefully she will be able to resume some exercise and start to work on weight loss again which was the only solution for all of her aches and pains Pap smear will be due in 2024 she did not need any testing for STIs and she gets her mammograms once a year in June. She requested some ibuprofen for her menstrual cramps when she does get them and even though she has the Crohn's she is careful to not use overuse them and she would only take it with food in her stomach and review it with her physician as well. Medications: New ibuprofen Always take with food in stomach; take as needed for dysmenorrhea 600 mg PO Q6H PRN 90 tabs 0RF pain Coding Level of Care Code Est Pt Prev Care 40-64y(01219) Diagnoses Encounter for routine checking of intrauterine contraceptive device (IUD) Z30.431 Well woman exam with routine gynecological exam Z01.419 Encounter for Papanicolaou smear for cervical cancer screening Z12.4 Presence of 52 mg levonorgestrel-releasing intrauterine device (IUD) Z97.5 Obesity, morbid, BMI 40.0-49.9 E66.01
[2023-03-08 13:31] VITALS: BMI 47.9
== END 2023-03-08 14:36 | disposition home or self-care (01) ==
LOC: HO.HWS 13:24
PROVIDERS: PCP Internal Medicine; Visit Provider Advanced Practice Midwife
DX: Z30.431 Encounter for routine checking of intrauterine contraceptive device (principal); Z01.419 Encounter for gynecological examination (general) (routine) without abnormal findings; Z12.4 Encounter for screening for malignant neoplasm of cervix; Z97.5 Presence of (intrauterine) contraceptive device; E66.01 Morbid (severe) obesity due to excess calories
CPT/HCPCS: 99396

== ENCOUNTER → 2023-03-08 13:24 | Outpatient (BNVA) | payer MEDICAID, SELFPAY | PROVIDERS: PCP Internal Medicine; Visit Provider Advanced Practice Midwife | DX: Z30.431 Encounter for routine checking of intrauterine contraceptive device (principal); Z01.419 Encounter for gynecological examination (general) (routine) without abnormal findings; Z12.4 Encounter for screening for malignant neoplasm of cervix; E66.01 Morbid (severe) obesity due to excess calories; Z97.5 Presence of (intrauterine) contraceptive device; Z68.42 Body mass index [BMI] 45.0-49.9, adult | CPT/HCPCS: 99396 ==

== ENCOUNTER 2023-03-10 08:59 | Outpatient (REF) | payer MEDICAID, SELFPAY ==
--- NOTE | ~2023-03-10 | XR_ITS ---
EXAMINATION: XR KNEE, LEFT CLINICAL INFORMATION: Pain. COMPARISON: Prior radiographs, most recently 10/15/2022. TECHNIQUE: Lateral and axial views of the left knee are submitted. FINDINGS: Bony alignment and mineralization are normal. The patellofemoral compartment is well-maintained. There is slight peripheral osteophyte formation of the articular surface of the patella. No fracture, dislocation or joint effusion is seen. There is no foreign body. XR/XR knee LT 2V IMPRESSION: There is minimal osteoarthritic change of the left patellofemoral compartment. No fracture, dislocation or joint effusion is seen.
== END 2023-03-10 09:00 | disposition home or self-care (01) ==
LOC: HO.HOSX 08:59
PROVIDERS: Visit Provider Physician Assistant
DX: M17.11 Unilateral primary osteoarthritis, right knee (principal); M25.562 Pain in left knee
CPT/HCPCS: 20610; 73560; 99212; J1040

== ENCOUNTER 2023-03-10 12:56 | Outpatient (AMB) | payer MEDICAID, SELFPAY ==
--- NOTE | 2023-03-10 13:06 | A.OFFVIS_ITS ---
Intake Vital Signs 03/10/23 13:13 Height 5 ft 8 in Weight 288 lb BMI 43.8 Intake Visit Reasons: Newprob-B/L knee pain Intake Note: Windy a 47 year old female presents today for with complaints of bilateral knee pain. Patient reports right knee injection on 10/15/22 provided her relief, states pain returned in January. Currently pain is located in bilateral knee pain at the posterior aspect causing difficulty with bending her knee. She is requesting to repeat injection. Allergies ciprofloxacin [From CIPRO] Allergy (Severe, Verified 03/10/23 13:13) GI PAIN vancomycin Allergy (Unknown, Uncoded 03/10/23 13:13) anaphylaxis HPI Newprob-B/L knee pain HPI Details 47-year-old female who presents to the [facility] today for evaluation of bilateral knee pain. She currently states she has pain in the posterior aspect of her knee which is aggravated with bending her knee. She had her last right knee injection on 10/15/22 which provided her relief until January. She would like to repeat the injection. [facility] Medical History (Updated 03/08/23 @ 14:37 by Kylee Rodriguez CNM) Obesity, morbid, BMI 40.0-49.9 Somnolence, daytime TANA (obstructive sleep apnea) Allergic rhinitis Bronchial asthma Trigger finger Dysuria Encounter for Papanicolaou smear for cervical cancer screening Asthma Insomnia Crohn's disease Surgical History History of carpal tunnel surgery Hx of laparoscopic gastric banding Hx of breast reduction, elective Family History Father HIV (human immunodeficiency virus infection) Mother Hypertension Maternal Grandmother Diabetes mellitus Maternal Grandfather Hypertension Lymphoma Paternal Grandfather No problems noted. 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 Tenderness along the medial joint line. Full ROM with crepitus. Negative Ivan?s. No ligamentous laxity. NVI. Office Procedures Joint Injection/Drain Joint Injection/Drain Primary Site: right knee Prep: site was prepped using aseptic technique, ethochloride spray was applied and injection warnings given Injected: 80 mg of, DepoMedrol, with 8 mL of, 1% plain lidocaine and in the joint Approach Used: anterolateral Procedure: The patient tolerated the procedure well and there was some relief with the local anesthesia Coding 08103 - Glenohumeral/Tronchanteric Bursa/Intraarticular Procedure code (CPT) selection complete Assessment & Plan Assessment & Plan (1) Patellofemoral arthritis of right knee: Code(s): M17.11 - Unilateral primary osteoarthritis, right knee Plan We discussed options today which include steroid injection. They did consent to move forward with the right knee injection, which was tolerated well. I recommended rest, ice and elevation and OTC anti-inflammatories PRN for discomfort. If symptoms persist or worsens over the next 6-8 weeks, patient will contact the office, otherwise follow-up as needed. Orders: Orders XR knee LT 2V Today M25.562 - Pain in left knee Patient Instructions: Scribed for Juanita aHnnon PA-C, by Abelino Acosta medical superintendent, on 03/10/2023 at 1:15 PM EST. Juanita Farmer PA-C, have personally reviewed and agree with the information entered by the scribe. Coding Level of Care Code Est Pt Level 3 (75860) Diagnoses Patellofemoral arthritis of right knee M17.11 CPT Codes Coding - Joint 7: 82005 - Glenohumeral/Tronchanteric Bursa/Intraarticular ([id number])
[2023-03-10 13:13] VITALS: BMI 43.8
== END 2023-03-10 13:26 | disposition home or self-care (01) ==
PROVIDERS: PCP Internal Medicine; Visit Provider Physician Assistant
DX: M17.11 Unilateral primary osteoarthritis, right knee (principal)
CPT/HCPCS: 20610; 99213

== ENCOUNTER 2023-04-04 14:58 | Outpatient (REF) | payer MEDICAID, SELFPAY ==
--- NOTE | ~2023-04-04 | MM_ITS ---
EXAMINATION: MM DIAGNOSTIC DIGITAL BREAST TOMOSYNTHESIS, BILATERAL US BREAST DIAGNOSTIC, BILATERAL CLINICAL INFORMATION: 47-year-old female, complaining of both pain and palpable foci of concern in bilateral axillary regions. Patient has had a breast reduction in 2001. COMPARISON: Mammography: Comparison was made to exams dating 11/15/2022, 11/05/2021, 04/06/2018, 08/18/2016. TECHNIQUE: Digital breast tomosynthesis is performed in both the craniocaudal and mediolateral oblique views along with computer-aided detection (CAD). Synthesized 2D images are generated from the tomosynthesis. In addition, full-field 3-D bilateral X CCL views were obtained. FINDINGS: There are scattered areas of fibroglandular density (ACR BI-RADS breast composition Category b). There are no significant masses, abnormal calcifications, or other abnormalities in either breast. Is a stable cluster of cysts in the upper far outer right breast, middle one third. The axilla have been marked by the technologist in the regions of pain and palpable concern. No underlying mammographic focus of concern is present. These regions will be examined by ultrasound. ULTRASOUND: CLINICAL INFORMATION: 47-year-old female, complaining of both pain and palpable foci of concern in bilateral axillary regions COMPARISON: None relevant. TECHNIQUE: High-resolution grayscale sonography of both axillary regions was performed. Selected archives were obtained. FINDINGS: RIGHT AXILLA: Only fatty tissue is visualized. No suspicious solid or cystic lesion or area of suspicious echotexture is demonstrated. There is a hyperechoic focus in the area of palpable concern measuring 7 x 6 x 4 mm, with some peripheral calcification within the mid right axilla, diagnostic for a focus of fat necrosis. This is benign. Otherwise, no additional findings. LEFT AXILLA: Only fatty tissue is visualized. No suspicious solid or cystic lesion or area of suspicious echotexture is demonstrated. There is a solitary benign-appearing lymph node with fatty pelvis and normal thickness cortex present. This was responsible for the palpable left focus. MM/MM tomosynthesis diagnostic BI IMPRESSION: No mammographic or sonographic evidence of malignancy in either breast or axilla. Benign findings as detailed. Recommend the patient return to routine annual screening. OVERALL ASSESSMENT: Mammography: BI-RADS 2 - Benign Findings Ultrasound: BI-RADS 2 - Benign Findings RECOMMENDATION: Routine annual mammography screening. 1 year F/U This examination should not preclude the clinical evaluation of a suspicious palpable abnormality. This patient's information was entered into a reminder system with a target due date for their next mammogram.
== END 2023-04-04 14:59 | disposition home or self-care (01) ==
LOC: HO.MAMMO 14:58
PROVIDERS: PCP Internal Medicine; Visit Provider Surgery
DX: R22.31 Localized swelling, mass and lump, right upper limb (principal); R22.32 Localized swelling, mass and lump, left upper limb
CPT/HCPCS: 76642; 77062; 77066

== ENCOUNTER → 2023-04-04 15:00 | Outpatient (BNV) | payer MEDICAID, SELFPAY | PROVIDERS: PCP Internal Medicine; Visit Provider Radiology Diagnostic Radiology | DX: N63.0 Unspecified lump in unspecified breast (principal) | CPT/HCPCS: 76642; 77062; 77066 ==

== ENCOUNTER 2023-04-07 09:43 | Outpatient (AMB) | payer MEDICAID, SELFPAY ==
[2023-04-07 09:46] VITALS: BP 102/60; PULSE 66; O2SAT 99; BMI 42.1
--- NOTE | 2023-04-07 09:46 | MHC.OFFVIS ---
Intake Vital Signs 04/07/23 09:46 Height 5 ft 8 in Weight 277 lb BMI 42.1 BP 102/60 Blood Pressure Location Lt brachial Position Sitting Pulse 66 Pulse Source Pulse Oximeter Pulse Oximetry (%) 99 Oxygen Delivery Method Room Air Intake Visit Reasons: Sleep Study Follow Up Intake Note: pt is here and states she is short is short of breath since covid which she just had on 03/27 thru 04/02, still not well with sleeping. Arch Support Technician Required: No Allergies ciprofloxacin [From CIPRO] Allergy (Severe, Verified 04/07/23 10:15) GI PAIN vancomycin Allergy (Unknown, Uncoded 04/07/23 10:15) anaphylaxis Medication List - Last Reconciled 04/07/23 by Reggie Schmidt MD albuterol sulfate mg inhalation QID PRN albuterol sulfate 90 mcg/actuation (ProAir HFA) 2 puffs inhalation Q6H PRN baclofen 20 mg PO TID [id number]-tyskbuceqtssw-rlft 50-325-40 mg 1 tab PO Q4H calcium carbonate-vitamin D3 600 mg-10 mcg (400 unit) 1 tab PO BID cholecalciferol (vitamin D3) 50 mcg PO DAILY clonazepam 0.5 mg PO DAILY PRN dicyclomine 20 mg PO TID fexofenadine ([facility] Allergy) 180 mg PO DAILY fluconazole 150 mg PO Q3D PRN fluticasone propionate 110 mcg/actuation (Flovent HFA) 110 mcg inhalation DAILY fluticasone propionate 50 mcg/actuation 1 spray intranasal QAM gabapentin 300 mg PO TID ibuprofen 600 mg PO Q6H PRN levocetirizine 5 mg PO DAILY PRN levonorgestrel (Mirena) 20 mcg intrauterine DAILY lidocaine-prilocaine 2.5-2.5 % 1 appl topical ONCE loperamide mg PO Q4-6H PRN montelukast 10 mg PO QPM pantoprazole 40 mg PO DAILY propranolol 10 mg PO BID sertraline 75 mg PO DAILY ustekinumab (Stelara) 90 mg subcut Q8W valacyclovir 1,000 mg PO DAILY zolpidem (Ambien) 10 mg PO BEDTIME Do you need a note to return to daycare/school/sports/work: No HPI Sleep Study Follow Up HPI Details THIS 47 YEARS OLD FEMALE, GROSSLY OBESE, COMES IN FOR AN EARLY VISIT, WITH CHIEF COMPLAINT OF NOT ABLE TO SLEEP AT NIGHT, AND REMAINS TIRED DURING THE DAYTIME HER SLEEP STUDY DID SHOW THAT SHE HAS MILD OBSTRUCTIVE SLEEP APNEA, WITH MILD NOCTURNAL HYPOXEMIA. I HAD ADVISED HER TO FOLLOW WITH CONSERVATIVE MEASURES SUCH WEIGHT REDUCTION AND SLEEPING IN LATERAL POSITION, WHICH SHE HAS TRIED. SHE HAS NOT BEEN ABLE TO LOSE MUCH WEIGHT, SHE TRIES TO SLEEP. IN RIGHT LATERAL POSITION STILL REMAINS SYMPTOMATIC AND SHE IS ASKING FOR GOING ON THE CPAP THERAPY. BREATHING REMAINS STABLE EXCEPT THAT THE A SHE GETS SHORT OF BREATH WHEN SHE WALKS AROUND. ALSO IN THE LAST WEEK HE SHE HAD COVID FROM WHICH SHE HAS RECOVERED AT HOME BUT STILL HAS INCREASED SHORTNESS OF BREATH. [facility] Medical History (Updated 04/07/23 @ 10:26 by Reggie Schmidt MD) COVID Obesity, morbid, BMI 40.0-49.9 Somnolence, daytime TANA (obstructive sleep apnea) Allergic rhinitis Bronchial asthma Trigger finger Dysuria Encounter for Papanicolaou smear for cervical cancer screening Asthma Insomnia Crohn's disease Surgical History History of carpal tunnel surgery Hx of laparoscopic gastric banding Hx of breast reduction, elective Family History Father HIV (human immunodeficiency virus infection) Mother Hypertension Maternal Grandmother Diabetes mellitus Maternal Grandfather Hypertension Lymphoma Paternal Grandfather No problems noted. 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/ Gender identity: Female Female Reproductive History Menstrual Age of Menarche: 13 Review of Systems Const All systems reviewed & are unremarkable except as noted in HPI and below Eyes Reports no additional complaints ENT Reports nasal congestion (MILD OFF AND ON) Card Denies chest pain, Denies irregular heart rhythm and Denies leg edema Resp Reports as per HPI GI Reports no additional complaints and Reports other (BEING TREATED FOR CROHN'S DISEASE) Reports no additional complaints Musc Reports no additional complaints Skin/Breast Reports system reviewed and no additional complaints, except as documented Neuro Reports no additional complaints Psych Reports no additional complaints and Reports depression (MILD DEPRESSION BEING TREATED WITH SERTRALINE) Endo Reports no additional complaints Physical Exam Vital Signs: Last Vital Signs Pulse 66 04/07/23 09:46 BP 102/60 04/07/23 09:46 Pulse Ox 99 04/07/23 09:46 Oxygen Delivery Method Room Air 04/07/23 09:46 BMI result Body Mass Index 42.1 Const General: healthy appearing (EXCEPT FOR BEING OVERWEIGHT), comfortable, no acute distress, alert and awake Orientation/consciousness: patient oriented x3 HEENT Head: Yes normal to inspection General nose exam: No nasal polyps present and No nasal discharge present Face and sinus: Yes sinuses nontender Mouth: oropharynx normal Throat: No posterior oropharynx normal (NARROW AND CROWDED, MALLAMPATI CLASS 3) Eyes General: appearance normal, both eyes and all related structures Neck Neck: Yes normal visual inspection, Yes no lymphadenopathy, Yes trachea midline and Yes no JVD Thyroid: Thyroid normal Chest Chest palpation & inspection: normal inspection of the chest, normal palpation of entire chest wall and no tenderness Resp Effort & Inspection: normal respiratory effort and other (BREATH SOUNDS ARE DIMINISHED OVER THE BASILAR AREAS BECAUSE OF HER OBESITY) Auscultation: clear to auscultation bilaterally, no crackles, no rhonchi and no wheezes Cardio Palpation: normal PMI Rate: regular rate Rhythm: regular rhythm Heart sounds: no gallops and no murmurs Peripheral pulses: Peripheral pulses 2+ throughout GI Palpation (GI): Soft to palpation, nontender, No hepatosplenomegaly present and no masses Auscultation: normal bowel sounds Back/Spine/Pelvis Thoracic/Lumbar Spine: thoracic and lumbar spine normal to inspection Skin General skin exam: no rashes or lesions noted Neuro General: patient oriented x3 and no focal motor deficits Cranial nerves: Yes CN's II-XII intact bilaterally Extrem General: Yes normal to inspection, Yes no clubbing, cyanosis or edema and Yes no calf tenderness Psych Appearance: grossly abnormal and poorly kempt Speech and movement: Normal speech and movement present Results Reviewed Results Reviewed: THE RESULTS OF HER HOME-BASED SLEEP STUDY ON 06/16/22 ARE REVIEWED AGAIN TOTAL SLEEP TIME AHI OF I.E. 11.9, SUPINE POSITION AHI 14.3. O2 SAT BELOW 88% FOR 22 MINUTES Assessment & Plan Assessment & Plan (1) Obesity, morbid, BMI 40.0-49.9: Comment: Continues to be obese, has not been able to lose much weight Code(s): E66.01 - Morbid (severe) obesity due to excess calories Plan: Advised to continue watch her diet and do daily exercise (2) TANA (obstructive sleep apnea): Comment: She is the a case of obstructive sleep apnea which was mild mostly in supine position with nocturnal hypoxemia. She has tried conservative measures but has not succeeded and remains symptomatic. Code(s): G47.33 - Obstructive sleep apnea (adult) (pediatric) Plan: She will be started on CPAP therapy with full face mask and pressure setting 6-20 cm, Patient is educated about the use of CPAP. She would be followed up closely for compliance and maintenance. (3) Somnolence, daytime: Comment: Remains tired and sleepy during the daytime which is secondary to gross obesity as well as untreated TANA Code(s): R40.0 - Somnolence Plan: Hopefully after starting the CPAP therapy she will improve (4) Allergic rhinitis: Comment: SHE HAS MILD INTERMITTENT CHRONIC ALLERGIC RHINITIS. OKAY TO CONTINUE USING FEXOFENADINE 180 MG ONCE A DAY P.R.N. CONTINUE MONTELUKAST 10 MG DAILY. Code(s): J30.9 - Allergic rhinitis, unspecified Plan: as above (5) Bronchial asthma: Comment: PATIENT DOES HAVE LONGSTANDING HISTORY OF BRONCHIAL ASTHMA. IT HAS BEEN MILD, INTERMITTENT , IT SEEMS THAT SHE HAS ALLERGIC TYPE OF BRONCHIAL ASTHMA, HOWEVER DIFFERENTIAL COUNT DOES NOT SHOW EOSINOPHILIA, AND IGE LEVEL IS NORMAL . Code(s): J45.909 - Unspecified asthma, uncomplicated Plan: TREATMENT PLAN AGAIN DISCUSSED WITH HER. ADVISED TO CONTINUE : FLOVENT-1102 PUFFS B.I.D. . ALBUTEROL HFA 2 PUFFS Q 4-6 HOURS P.R.N.. SINGULAIR 10 MG DAILY. (6) COVID: Comment: She had COVID infection last week, but has recovered except for some residual weakness. Code(s): U07.1 - COVID-19 Plan: No specific treatment needed at this time Coding Level of Care Code Est Pt Level 4 (62576) Diagnoses Obesity, morbid, BMI 40.0-49.9 E66.01 TANA (obstructive sleep apnea) G47.33 Somnolence, daytime R40.0 Allergic rhinitis J30.9 Bronchial asthma J45.909 COVID U07.1
== END 2023-04-07 10:17 | disposition home or self-care (01) ==
PROVIDERS: PCP Internal Medicine; Visit Provider Internal Medicine
DX: E66.01 Morbid (severe) obesity due to excess calories (principal); G47.33 Obstructive sleep apnea (adult) (pediatric); R40.0 Somnolence; J30.9 Allergic rhinitis, unspecified; J45.909 Unspecified asthma, uncomplicated; U07.1 COVID-19
CPT/HCPCS: 99214

== ENCOUNTER → 2023-04-07 09:43 | Outpatient (BNVA) | payer MEDICAID, SELFPAY | PROVIDERS: PCP Internal Medicine; Visit Provider Internal Medicine | DX: J45.909 Unspecified asthma, uncomplicated (principal); R40.0 Somnolence; G47.33 Obstructive sleep apnea (adult) (pediatric); E66.01 Morbid (severe) obesity due to excess calories; U07.1 COVID-19; Z68.41 Body mass index [BMI] 40.0-44.9, adult | CPT/HCPCS: 99212 ==

== ENCOUNTER 2023-04-12 13:00 | Outpatient (AMB) | payer MEDICAID, SELFPAY ==
[2023-04-12 13:06] VITALS: BP 121/63; PULSE 94; BMI 42.4
--- NOTE | 2023-04-12 13:06 | MHC.OFFVIS ---
Intake Vital Signs 04/12/23 13:06 Height 5 ft 8 in Weight 279 lb BMI 42.4 BP 121/63 Blood Pressure Location Rt brachial Position Sitting Pulse 94 Intake Visit Reasons: Bilateral axillary masses, BI US and mammo results Intake Note: Patient here for Bilateral axillary mass. Present for more than 1yr. Bilateral breast US and mammo on 04-04-23. Patient c/o: Pain to touch. Director Distribution Required: No Accompanied by: Foster Child Allergies ciprofloxacin [From CIPRO] Allergy (Severe, Verified 04/12/23 13:08) GI PAIN vancomycin Allergy (Unknown, Uncoded 04/12/23 13:08) anaphylaxis HPI HPI Comments History of Present Illness Details Patient presents with bilateral nonspecific axillary complaints. She has had extensive workup for this including mammogram and sonograms which were essentially both within normal limits. She denies any specific breast pain, discharge, skin changes. She does do self-breast exams. Family history negative breast cancer. Chart was reviewed patient evaluated COUNT INCLUDES THE [facility] Medical History COVID Obesity, morbid, BMI 40.0-49.9 Somnolence, daytime TANA (obstructive sleep apnea) Allergic rhinitis Bronchial asthma Trigger finger Dysuria Encounter for Papanicolaou smear for cervical cancer screening Asthma Insomnia Crohn's disease Surgical History History of carpal tunnel surgery Hx of laparoscopic gastric banding Hx of breast reduction, elective Family History Father HIV (human immunodeficiency virus infection) Mother Hypertension Maternal Grandmother Diabetes mellitus Maternal Grandfather Hypertension Lymphoma Paternal Grandfather No problems noted. 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 Left periclavicular axillary and cervical lymph nodes negative. Right periclavicular cervical lymph nodes negative. A small palpable deep right lymph node less than a cm in size was palpated which was confirmed on sonography and is benign appearing. Assessment & Plan Assessment & Plan (1) Mass of right axilla: Code(s): R22.31 - Localized swelling, mass and lump, right upper limb (2) Mass of left axilla: Code(s): R22.32 - Localized swelling, mass and lump, left upper limb Plan The present time, the current plan is for conservative therapy. Patient is encouraged to do her self breast exams. She is scheduled for annual mammography and will see me after that study or p.r.n.. All questions answered. Coding Level of Care Code New Pt Level 4 (73145) Diagnoses Mass of right axilla R22.31 Mass of left axilla R22.32
== END 2023-04-12 13:20 | disposition home or self-care (01) ==
PROVIDERS: PCP Internal Medicine; Visit Provider Surgery
DX: R22.31 Localized swelling, mass and lump, right upper limb (principal); R22.32 Localized swelling, mass and lump, left upper limb
CPT/HCPCS: 99214

== ENCOUNTER → 2023-04-12 13:00 | Outpatient (BNVA) | payer MEDICAID, SELFPAY | PROVIDERS: PCP Internal Medicine; Visit Provider Surgery | DX: R22.31 Localized swelling, mass and lump, right upper limb (principal); R22.32 Localized swelling, mass and lump, left upper limb | CPT/HCPCS: 99212 ==

== ENCOUNTER 2023-04-17 23:36 | Emergency (ER) | payer MEDICAID, SELFPAY ==
--- NOTE | ~2023-04-17 | XR_ITS ---
EXAMINATION: XR LUMBOSACRAL SPINE CLINICAL INFORMATION: Back pain COMPARISON: None available. TECHNIQUE: Three views of the lumbosacral spine. FINDINGS: The vertebral bodies and posterior elements are normal. The disc spaces are preserved and the vertebral alignment is normal. The paraspinal soft tissues are normal. XR/XR lumbar spine 2-3V IMPRESSION: Unremarkable examination.
[2023-04-17 23:37] VITALS: BP 115/69; PULSE 90; RESP 18; TEMP 36.7; O2SAT 98; BMI 44.9
--- NOTE | 2023-04-18 00:41 | ED_ITS ---
HPI - Back Pain/Injury General Chief Complaint: Back Pain/Injury Stated Complaint: kidney pain Time Seen by Provider: 04/18/23 00:31 Source: patient Mode of arrival: ambulatory Limitations: no limitations History of Present Illness HPI Narrative: 47-year-old female came in for evaluation of back pain, pain started 2 days ago, no fall, no trauma, no heavy lifting, no strenuous exercise, no urinary symptoms, no dysuria, no frequency urination, no fever, chills, no history of drug abuse in the past, no urinary or stool incontinence, no weakness, no numbness. Related Data Home Medications Medication Instructions Recorded Confirmed ustekinumab 90 mg/mL subcutaneous 90 mg subcut Q8W 07/30/20 04/07/23 syringe (Stelara) fluticasone propionate 110 110 mcg inhalation DAILY 02/19/21 04/07/23 mcg/actuation HFA aerosol inhaler (Flovent HFA) albuterol sulfate 90 mcg/actuation 2 puff inhalation Q6H PRN 04/07/21 04/07/23 aerosol inhaler (ProAir HFA) Shortness Of Breath Or Wheezing baclofen 10 mg tablet 20 mg PO TID 04/07/21 04/07/23 cholecalciferol (vitamin D3) 50 50 mcg PO DAILY 04/07/21 04/07/23 mcg (2,000 unit) capsule dicyclomine 20 mg tablet 20 mg PO TID 04/07/21 04/07/23 pantoprazole 40 mg tablet,delayed 40 mg PO DAILY 04/07/21 04/07/23 release fexofenadine 180 mg tablet 180 mg PO DAILY 08/17/21 04/07/23 (Amada Allergy) levonorgestrel 21 mcg/24 hours (8 20 mcg intrauterine DAILY 08/17/21 04/07/23 yrs) 52 mg intrauterine device (Mirena) sertraline 50 mg tablet 75 mg PO DAILY 12/07/21 04/07/23 albuterol sulfate 2.5 mg/3 mL mg inhalation QID PRN 05/20/22 04/07/23 (0.083 %) solution for nebulization clonazepam 0.5 mg tablet 0.5 mg PO DAILY PRN 05/20/22 04/07/23 gabapentin 300 mg capsule 300 mg PO TID 12/30/22 04/07/23 propranolol 20 mg tablet 10 mg PO BID 01/21/23 04/07/23 loperamide 2 mg capsule mg PO Q4-6H PRN diarrhea 03/08/23 04/07/23 qwdwimrkhp-cvctzsouxbeoz-qjgwguws 1 tab PO Q4H 04/07/23 04/07/23 50 mg-325 mg-40 mg tablet calcium carbonate 600 mg-vitamin 1 tab PO BID 04/07/23 04/07/23 D3 10 mcg (400 unit) tablet fluticasone propionate 50 1 spray intranasal QAM 04/07/23 04/07/23 mcg/actuation nasal spray,suspension levocetirizine 5 mg tablet 5 mg PO DAILY PRN allergies 04/07/23 04/07/23 zolpidem 10 mg tablet (Ambien) 10 mg PO BEDTIME Insomnia 04/07/23 04/07/23 Previous Rx's Medication Instructions Recorded fluconazole 150 mg tablet 150 mg PO Q3D PRN reported yeast 09/04/21 infections #2 tabs valacyclovir 1 gram tablet 1,000 mg PO DAILY #30 tabs 08/31/22 montelukast 10 mg tablet 10 mg PO QPM for asthma #90 tabs 02/01/23 ibuprofen 600 mg tablet 600 mg PO Q6H PRN pain #90 tabs 03/08/23 lidocaine-prilocaine 2.5 %-2.5 % 1 appl topical ONCE preprocedure 03/25/23 topical cream #30 grams cyclobenzaprine 10 mg tablet 10 mg PO TID PRN muscle spasm #10 04/18/23 tabs ibuprofen 600 mg tablet 600 mg PO Q8H PRN pain #10 tabs 04/18/23 Allergies Allergy/AdvReac Type Severity Reaction Status Date / Time ciprofloxacin [From CIPRO] Allergy Severe GI PAIN Verified 04/17/23 23:40 vancomycin Allergy Unknown anaphylaxis Uncoded 04/12/23 13:08 Review of Systems Review of Systems: All other systems are reviewed and are negative Constitutional: Reports as per HPI and Reports no additional constitutional complaints Eyes: Reports as per HPI and Reports no additional eye complaints Reports system reviewed and no additional complaints, except as documented Cardiovascular: Reports as per HPI and Reports no additional cardiovascular complaints Respiratory: Reports as per HPI and Reports no additional respiratory complaints Gastrointestinal: Reports as per HPI and Reports no additional gastrointestinal complaints Genitourinary: Reports no additional female genitourinary complaints Musculoskeletal: Reports no additional musculoskeletal complaints Skin/Breast: Reports system reviewed and no additional complaints, except as docu Psychiatric: Reports no additional psychiatric complaints Endocrine: Reports no additional endocrine complaints Hematologic/Lymphatic: Reports no additional hematologic/lymphatic complaints Allergic/Immunologic: Reports no additional allergic/immunologic complaints Reports system reviewed and no additional complaints, except as documented and Reports Abnormal speech present [facility] Past Medical History Medical History COVID Obesity, morbid, BMI 40.0-49.9 Somnolence, daytime TANA (obstructive sleep apnea) Allergic rhinitis Bronchial asthma Trigger finger Dysuria Encounter for Papanicolaou smear for cervical cancer screening Asthma Insomnia Crohn's disease Surgical History History of carpal tunnel surgery Hx of laparoscopic gastric banding Hx of breast reduction, elective Family History Family History Father HIV (human immunodeficiency virus infection) Mother Hypertension Maternal Grandmother Diabetes mellitus Maternal Grandfather Hypertension Lymphoma Paternal Grandfather No problems noted. 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 Blood pressure elevated. Heart rate normal. Respiratory rate normal. Temperature normal. Oxygen saturation normal. Appearance: Alert. Oriented X3. No acute distress. Head: Normal external exam. Normocephalic. Atraumatic. No Mckee signs noted. No raccoon eyes noted Eyes: PERRLA. EOMI. Conjunctiva and sclera normal. Eyelids normal. ENT: TM's Normal. Pharynx normal. Uvula midline. Moist mucous membranes. No trismus noted. No drooling noted. No muffled voice noted. Neck: Normal inspection. Neck supple. FROM. No adenopathy. Thyroid Normal. No meningeal signs. No neck mass noted. CVS: Normal heart rate and rhythm. Heart sound normal. No murmurs noted. Pulses normal throughout. Respiratory: No respiratory distress. Painless inspiration. Breath sounds normal. No wheezes/rales/rhonchi noted. Chest nontender. No accessory muscle usage noted or decreased air movement noted. Abdomen: Soft and nontender. Bowel sounds normal in all 4 quadrants. No distention noted. No organomegaly noted. No visible injury noted. Back: No CVA tenderness. Full range of motion noted. No step-off, no deformity, no point of tenderness. Skin: Skin warm and dry. Normal skin color. Normal skin turgor. No rashes/lesions/lacerations noted. Extremities: No lower extremity edema. Extremities exhibit normal range of motion. Extremities nontender. Neuro: Oriented X 3. Cranial nerve exam: II-XII are grossly intact No motor deficit. No sensory deficit. Reflexes normal. Normal perianal sensation, able to ambulate on toes and heels. Course Reevaluation(s) Reevaluation #1: Back pain for 2 days, no history of IV drug abuse, no fever, no point of tenderness with no neurological deficit making epidural abscess/occupying lesion is not favorable diagnosis. History and exam consistent with gallstone back pain due to the patient on NSAIDs and muscle relaxant and wrist for 2-3 days. Time: 00:52 Medical Decision Making Differential Diagnosis Differential Diagnoses: The differential diagnosis associated with the presentation includes (Pyelonephritis, UTI, myofascial strain) Admission/Observation Consideration of admission/observation: Escalation of care including admission/observation considered Lab Data MDM Lab Attestation statement: I reviewed the patient's lab results. Labs: Lab Results 12/25/23 Range/Units 00:36 Urine Color Yellow Urine Appearance Clear Urine pH 5.0 (5.0-9.0) Ur Specific [place] 1.025 (1.005-1.025) Urine Protein Negative (Neg-Trace) mg/dL Urine Glucose (UA) Negative (Negative) mg/dL Urine Ketones Trace (Negative) mg/dL Urine Blood Negative (Negative) Urine Nitrite Negative (Negative) Ur Leukocyte Esterase Negative (Negative) Urine RBC 0-2 (0-2) /HPF Urine WBC 0-5 (0-5) /HPF Ur Squamous Epith Cells 0-2 (0-2) /HPF Urine Bacteria None Seen (None Seen) Hyaline Casts 0-2 (0-2) /LPF Independent Interpretation I performed an independent interpretation of an: Plain X-Ray (Lumbar spine: No acute fracture or dislocation or malalignment.) Radiology Impression Discussion of test interpretation with radiology: I have reviewed the radiologist's reading. Chronic Conditions Patient?s care impacted by: Other (Fibromyalgia) Discharge Plan Discharge Clinical Impression: Acute myofascial strain of lumbar region Qualifiers: Encounter type: initial encounter Qualified Code(s): S39.012A - Strain of muscle, fascia and tendon of lower back, initial encounter Patient Disposition: Home, Self-Care Instructions: Muscle Strain (ED) Prescriptions: New cyclobenzaprine 10 mg tablet 10 mg PO TID PRN (Reason: muscle spasm) Qty: 10 0RF ibuprofen 600 mg tablet 600 mg PO Q8H PRN (Reason: pain) Qty: 10 0RF No Action fluconazole 150 mg tablet 150 mg PO Q3D PRN (Reason: reported yeast infections) Qty: 2 0RF Rx Instructions: may repeat second dose 72 hrs after first dose if symptoms persist montelukast 10 mg tablet 10 mg PO QPM Qty: 90 0RF lidocaine-prilocaine 2.5-2.5 % cream 1 appl topical ONCE Qty: 30 0RF Rx Instructions: cleanse feet thoroughly, apply to both feet 30 minutes prior to appointment. fluticasone propionate [Flovent HFA] 110 mcg/actuation HFA aerosol inhaler 110 mcg inhalation DAILY baclofen 10 mg tablet 20 mg PO TID zolpidem [Ambien] 10 mg tablet 10 mg PO BEDTIME cholecalciferol (vitamin D3) 50 mcg (2,000 unit) capsule 50 mcg PO DAILY pantoprazole 40 mg tablet,delayed release (DR/EC) 40 mg PO DAILY dicyclomine 20 mg tablet 20 mg PO TID albuterol sulfate [ProAir HFA] 90 mcg/actuation HFA aerosol inhaler 2 puff inhalation Q6H PRN (Reason: Shortness Of Breath Or Wheezing) Stelara 90 mg/mL syringe 90 mg subcut Q8W fexofenadine [Amada Allergy] 180 mg tablet 180 mg PO DAILY Mirena 20 mcg/24 hours (7 yrs) 52 mg intrauterine device 20 mcg intrauterine DAILY sertraline 50 mg tablet 75 mg PO DAILY gabapentin 300 mg capsule 300 mg PO TID clonazepam 0.5 mg tablet 0.5 mg PO DAILY PRN albuterol sulfate 2.5 mg /3 mL (0.083 %) solution for nebulization inhalation QID PRN valacyclovir 1 gram tablet 1,000 mg PO DAILY Qty: 30 0RF Rx Instructions: take daily for 3-5 days for HSV outbreak loperamide 2 mg capsule PO Q4-6H PRN (Reason: diarrhea) ibuprofen 600 mg tablet 600 mg PO Q6H PRN (Reason: pain) Qty: 90 0RF Rx Instructions: Always take with food in stomach; take as needed for dysmenorrhea propranolol 20 mg tablet 10 mg PO BID fluticasone propionate 50 mcg/actuation spray,suspension 1 spray intranasal QAM levocetirizine 5 mg tablet 5 mg PO DAILY PRN (Reason: allergies) jyuxmsixjl-qjtazbnishwfb-qmal 50-325-40 mg tablet 1 tab PO Q4H calcium carbonate-vitamin D3 600 mg-10 mcg (400 unit) tablet 1 tab PO BID Referrals: Ceci Billings MD [Primary Care Provider] -
[2023-04-18 00:43] LABS: Appearance Urine Clear; Color Urine Yellow; Glucose Urine UA Negative (Negative); Leukocyte Esterase Urine Negative (Negative); Nitrite Urine Negative (Negative); Specific Gravity - Urine 1.025 (1.005-1.025); Urine Blood Negative (Negative); Urine Ketones Trace mg/dL (Negative); Urine Protein Negative (Neg-Trace)
[2023-04-18 00:46] LABS: Bacteria Urine None Seen (None Seen); Hyaline Casts Urine 0-2 /LPF (0-2); RBC Urine 0-2 /HPF (0-2); Squamous Epithelial Cell Urine 0-2 /HPF (0-2); WBC Urine 0-5 /HPF (0-5)
[2023-04-18] MEDS: Cyclobenzaprine HCl 10 MG TABLET PO (00:58)
[2023-04-18] MEDS: Ibuprofen 600 MG TABLET PO (00:58)
--- NOTE | 2023-04-18 01:02 | PC.NURSE ---
pt calm and cooperative reports pain of 6/10 pt medicated according to mar
[2023-04-18 01:41] VITALS: BP 96/57; PULSE 74; RESP 16; TEMP 36.8; O2SAT 100
--- NOTE | 2023-04-18 01:42 | PC.NURSE ---
pt reports continued 6/10 pain feels safe for discharge. pt ambulatory at discharge. pt provided with discharge packet. pt verbalized understanding of discharge plan
== END 2023-04-18 01:43 | disposition home or self-care (01) ==
PROVIDERS: Emergency Provider Emergency Medicine; PCP Internal Medicine
DX: S39.012A Strain of muscle, fascia and tendon of lower back, initial encounter (principal); X58.XXXA Exposure to other specified factors, initial encounter; Y93.9 Activity, unspecified; Y92.9 Unspecified place or not applicable; Y99.9 Unspecified external cause status
CPT/HCPCS: 72100; 81001; 99283; 99284

== ENCOUNTER 2023-04-21 14:15 | Outpatient (AMB) | payer MEDICAID, SELFPAY ==
--- NOTE | 2023-04-21 14:23 | A.OFFVIS_ITS ---
Intake Vital Signs 04/21/23 14:25 Height 5 ft 8 in Weight 282 lb 3.067 oz BMI 42.9 BP 98/66 Blood Pressure Location Lt brachial Position Sitting Pulse 80 Intake Visit Reasons: [employer]OC[employer]ATE/Palpitations/Makris/Confirmed Intake Note: NPV w/ EKG Aws Consultant Required: No Accompanied by: Self / Same As Patient Allergies ciprofloxacin [From CIPRO] Allergy (Severe, Verified 04/21/23 14:26) GI PAIN vancomycin Allergy (Unknown, Uncoded 04/21/23 14:26) anaphylaxis Medication List - Last Reconciled 04/21/23 by Brice Lira MD albuterol sulfate mg inhalation QID PRN albuterol sulfate 90 mcg/actuation (ProAir HFA) 2 puffs inhalation Q6H PRN baclofen 20 mg PO TID cantknjocr-dzctcblmyiegy-suss 50-325-40 mg 1 tab PO Q4H calcium carbonate-vitamin D3 600 mg-10 mcg (400 unit) 1 tab PO BID cholecalciferol (vitamin D3) 50 mcg PO DAILY clonazepam 0.5 mg PO DAILY PRN cyclobenzaprine 10 mg PO TID PRN dicyclomine 20 mg PO TID fexofenadine (Amada Allergy) 180 mg PO DAILY fluconazole 150 mg PO Q3D PRN fluticasone propionate 110 mcg/actuation (Flovent HFA) 110 mcg inhalation DAILY fluticasone propionate 50 mcg/actuation 1 spray intranasal QAM gabapentin 300 mg PO TID ibuprofen 600 mg PO Q8H PRN ibuprofen 800 mg PO Q8H levocetirizine 5 mg PO DAILY PRN levonorgestrel (Mirena) 20 mcg intrauterine DAILY lidocaine-prilocaine 2.5-2.5 % 1 appl topical ONCE loperamide mg PO Q4-6H PRN montelukast 10 mg PO QPM pantoprazole 40 mg PO DAILY propranolol 10 mg PO BID sertraline 75 mg PO DAILY ustekinumab (Stelara) 90 mg subcut Q8W valacyclovir 1,000 mg PO DAILY zolpidem (Ambien) 10 mg PO BEDTIME HPI HPI Comments History of Present Illness Details This is a cardiology consultation regarding palpitations and dizziness. She states she has had palpitations for quite some time. Previously going to [facility] but has been discharged from that practice according to her. She is morbidly obese. She states that she used to get a lot of palpitations where she feels heart pounding sensations and that could last for an hour or so. Then apparently she was put on propranolol but she also uses that for headache. Since that time, she states the palpitations improved but she still feels some fluttering every now and then. Possibly just supraventricular and ventricular ectopy. Otherwise, she also states that she gets dizzy frequently and a blood pressures are on the lower side. Otherwise no known cardiac issues in the past. [facility] Medical History COVID Obesity, morbid, BMI 40.0-49.9 Somnolence, daytime TANA (obstructive sleep apnea) Allergic rhinitis Bronchial asthma Trigger finger Dysuria Encounter for Papanicolaou smear for cervical cancer screening Asthma Insomnia Crohn's disease Surgical History History of carpal tunnel surgery Hx of laparoscopic gastric banding Hx of breast reduction, elective Family History Father HIV (human immunodeficiency virus infection) Mother Hypertension Maternal Grandmother Diabetes mellitus Maternal Grandfather Hypertension Lymphoma Paternal Grandfather No problems noted. 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/ Gender identity: Female Female Reproductive History Menstrual Age of Menarche: 13 Review of Systems Const Denies chills, Denies daytime sleepiness, Denies fatigue, Denies fever(s), Denies frequent falls, Denies night sweats, Denies snoring, Denies weakness, Denies weight gain and Denies weight loss Eyes Denies loss of vision ENT Reports dizziness and Denies hearing loss Card Denies chest pain, Denies chest pain with activity, Denies syncope, Denies rapid heart rate, Denies edema, Denies claudication, Denies leg edema, Denies lightheadedness, Reports palpitations, Denies dyspnea, Denies dyspnea on exertion and Denies orthopnea Resp Denies cough, Denies excessive phlegm production, Denies dyspnea, Denies dyspnea on exertion, Denies snoring and Denies wheezing GI Denies abdominal pain, Denies hematochezia, Denies change in bowel habits, Denies change in stool character, Denies heartburn, Denies nausea and Denies vomiting Denies hematuria, Denies urinary frequency and Denies dysuria Musc Denies arthralgias, Denies muscle weakness, Denies numbness and Denies tingling Skin/Breast Denies nail changes and Denies rash Neuro Denies Abnormal speech present, Reports dizziness, Denies syncope, Denies frequent falls, Denies loss of vision, Denies memory loss, Denies numbness, Denies tingling and Denies weakness Psych Denies depression and Denies memory loss Endo Denies fatigue and Reports palpitations Aller/Immun Denies wheezing Physical Exam Vital Signs: Last Vital Signs Pulse 80 04/21/23 14:25 BP 98/66 04/21/23 14:25 BMI result Body Mass Index 42.9 Const General: comfortable and no acute distress Orientation/consciousness: patient oriented x3 HEENT Other: Unremarkable Head: Yes normal to inspection Neck Neck: Yes normal visual inspection Chest Chest palpation & inspection: normal inspection of the chest Resp Auscultation: clear to auscultation bilaterally Cardio Palpation: normal PMI Heart sounds: S1 normal heart sound present, S2 normal heart sound present, no gallops, no murmurs and no rubs GI Palpation (GI): Soft to palpation Back/Spine/Pelvis Other: unremarkable Skin General skin exam: no rashes or lesions noted Neuro General: patient oriented x3 Speech: No Abnormal speech present Extrem General: Yes normal to inspection Psych Mental Status: mental status grossly normal Office Procedures EKG Details: EKG with sinus rhythm at 80/Min; leftward axis; no significant ST-T changes and otherwise unremarkable. [place]. [id number], Complete Assessment & Plan Assessment & Plan (1) Heart palpitations: Code(s): R00.2 - Palpitations Plan: Possibly supraventricular/ventricular ectopy. May obtain Holter and echocardiogram for further evaluation. Previous records from [facility]. (2) Dizziness: Code(s): R42 - Dizziness and giddiness Plan: Blood pressure on the lower side. She states she has always been this way. Advised hydration and salt intake. Orders: Orders CA echo transthoracic complete Today R00.2 - Palpitations ECG holter monitor 48 hour Today R00.2 - Palpitations Coding Level of Care Code New Pt Level 3 (79791) Diagnoses Heart palpitations R00.2 Dizziness R42 CPT Codes EKG - CPT: 51348-[id number], Complete ([id number])
[2023-04-21 14:25] VITALS: BP 98/66; PULSE 80; BMI 42.9
== END 2023-04-21 14:44 | disposition home or self-care (01) ==
PROVIDERS: PCP Internal Medicine; Visit Provider Internal Medicine
DX: R00.2 Palpitations (principal); R42 Dizziness and giddiness
CPT/HCPCS: 93010; 99203

== ENCOUNTER → 2023-04-21 14:15 | Outpatient (BNVA) | payer MEDICAID, SELFPAY | PROVIDERS: PCP Internal Medicine; Visit Provider Internal Medicine | DX: R00.2 Palpitations (principal); R42 Dizziness and giddiness | CPT/HCPCS: 93005; 99202 ==

== ENCOUNTER 2023-04-29 12:00 | Outpatient (AMB) | payer MEDICAID, SELFPAY ==
[2023-04-29 13:02] VITALS: BP 130/79; PULSE 88; RESP 18; O2SAT 97; BMI 42.9
--- NOTE | 2023-04-29 13:02 | MHC.OFFVIS ---
Intake Vital Signs 04/29/23 13:02 04/29/23 13:35 04/29/23 13:56 Height 5 ft 8 in Weight 282 lb BMI 42.9 BP 130/79 122/71 120/70 Blood Pressure Location Lt brachial Position Sitting Respiration 18 Pulse 88 Pulse Source Pulse Oximeter Pulse Oximetry (%) 97 Oxygen Delivery Method Room Air Intake Visit Reasons: Quentza/confirmed Allergies ciprofloxacin [From CIPRO] Allergy (Severe, Verified 04/29/23 13:02) GI PAIN vancomycin Allergy (Unknown, Uncoded 04/21/23 14:26) anaphylaxis HPI HPI Comments History of Present Illness Details Windy presents to the office today for 1st Qutenza topical application for bilateral peripheral neuropathy. She applied EMLA cream at home per instructions. Patient denies any changes to her painful bilateral peripheral neuropathy since last visit. Denies new meds, allergies or diagnoses. Patient denies any recent injuries or wounds to her feet. She has started PT for her back, is taking motrin, muscle relaxers and gabapentin with improvement in her pain but not sustained, pain returns when the medications wear off. Patient is holding off on any injections until she completed PT. Prior: Windy is a very pleasant 47-year-old female who presented to the office today for evaluation and management of her left foot pain. Patient endorses left foot pain for more than 7 years without inciting injury. Patient states that she has been told she has plantar fasciitis and also peripheral neuropathy. She is not diabetic. She has been under treatment of Podiatry where she has received cortisone injections in both feet that provided her minimal relief therefore her solar project engineer stated he will not be doing injections moving forward. Patient has pain rated as 5/10 today, aching and burning to both feet though she reports the left foot is worse than the right. She says the burning aching pain in her feet starts on the bottom and will radiate up into her ankles and lower calves. She says it feels like she is walking on bubbles. Patient also complaining of bilateral lower back pain without radiation into her buttocks thighs or lower extremities. This pain is also described as aching. Patient denies red flag symptoms including new loss of bowel, bladder or saddle anesthesia. Patient has not attempted physical therapy for her pain. She is currently taking Tylenol and gabapentin with minimal relief. She had a recent MRI of her lower back, results as per below. In terms of muscle damage condition is described as sharp, throbbing, pinching and burning. The pain is negatively impacting the patient's normal sleep, normal activities, normal function and overall mood. [facility] Medical History COVID Obesity, morbid, BMI 40.0-49.9 Somnolence, daytime TANA (obstructive sleep apnea) Allergic rhinitis Bronchial asthma Trigger finger Dysuria Encounter for Papanicolaou smear for cervical cancer screening Asthma Insomnia Crohn's disease Surgical History History of carpal tunnel surgery Hx of laparoscopic gastric banding Hx of breast reduction, elective Family History Father HIV (human immunodeficiency virus infection) Mother Hypertension Maternal Grandmother Diabetes mellitus Maternal Grandfather Hypertension Lymphoma Paternal Grandfather No problems noted. 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 Answers questions appropriately. Fully engaged in examination. Skin: warm, dry, intact. Feet exposed, no wounds, rashes or breaks in skin noted. Light touch sensation intact bilaterally. HEENT: Normocephalic. Hearing intact. Cardiac: External chest normal in appearance. Respiratory: No cough, audible wheezing or stridor. Abdomen: without gross distension. MS: No obvious swelling or deformities. Able to transition from sit to stand unassisted. Ambulates with bilaterally normal heel strike and toe off Neurological: Oriented to person, place, time and situation. Thought process intact. Psychiatric: Appropriate mood and affect. Good judgment and insight. Office Meds capsaicin-skin cleanser 8 % topical kit Performing Provider: Lisa Mejia APRN, CNP Performing Location: [facility] [place] [facility] Administered by: Lisa Mejia APRN, CNP on 04/29/23 13:15 Dose Route Admin Location Dispensed Lot Number Expiration Date [facility] [employer] 4 ea topical 4 ea [id number] 10/23/25 25894-900-32 [employer] Comments: Patient applied topical EMLA cream to both feet prior to arrival for her scheduled appointment. Feet exposed, no wounds, rashes or breaks in skin noted. Light touch sensation intact bilaterally. Four single use topical patches (179mg capsaicin) divided between feet, 2 patches per foot, wrapped and secured per package instructions. Patient monitored throughout the procedure with BP checks every 15 minutes. She tolerated the 30 minute application well. Results Reviewed Results Reviewed: 01/04/23 PROCEDURE: MR SPINE LUMBAR without CONTRAST FINDINGS: Routine spinal anatomy is presumed. There are no comparison examinations. The last well-formed intervertebral disc is annotated as L5-S1. A saved screen has been sent to PACS for reference. Normal lumbar alignment is demonstrated. Vertebral heights are well maintained. Bone marrow signal is within normal limits, and no suspicious osseous lesion is identified. Conus medullaris is unremarkable. Paraspinal soft tissues and visualized portions of the abdomen and pelvis are unremarkable. At T12-L1 no significant disc bulging. No central canal or neural foraminal narrowing. At L1-2 there is no significant disc bulging. No central canal or neural foraminal narrowing. At L2-3 there is no significant disc bulging. Mild facet arthropathy. No central canal or neural foraminal narrowing. At L3-4 there is no significant disc bulging. Mild bilateral facet arthropathy. No central canal or neural foraminal narrowing. At L4-5 there is mild annular bulging within the left foraminal region. Bilateral facet arthropathy with mild ligamentum flavum thickening. Mild neural foraminal narrowing greater on the left. No central canal narrowing. At L5-S1 there is disc desiccation. Mild annular bulging. Mild facet arthropathy. Mild neural foraminal narrowing. No central canal narrowing. IMPRESSION: No evidence of acute fracture or traumatic subluxation of the lumbar spine. Mild spondylitic change of the lumbar spine as described. Assessment & Plan Assessment & Plan (1) Peripheral neuropathy: Code(s): G62.9 - Polyneuropathy, unspecified Plan Patient presented to the office today for 1st Qutenza topical application for bilateral peripheral neuropathy. Qutenza application as per above. Cleansing gel applied prior to discharge, patient given cleansing gel for home use if needed. Patient tolerated well, discharged home with no reported untoward effects. C/W Motrin, Gabapentin and muscle relaxers as prescribed. No refills needed today. C/W PT as planned All questions and concerns were answered. Patient will follow up in the office as planned for next Qutenza application. Follow up sooner if needed, call office if she would like to schedule injections. Orders: Orders AMB Capsaicin Patch - Practice Supplied Today G62.9 - Polyneuropathy, unspecified Coding Level of Care Code Est Pt Level 4 (58732) Diagnoses Peripheral neuropathy G62.9
[2023-04-29 13:35] VITALS: BP 122/71
[2023-04-29 13:56] VITALS: BP 120/70
== END 2023-04-29 14:07 | disposition home or self-care (01) ==
PROVIDERS: PCP Internal Medicine; Visit Provider Registered Nurse Emergency
DX: G62.9 Polyneuropathy, unspecified (principal)
CPT/HCPCS: 99214

== ENCOUNTER → 2023-04-29 12:00 | Outpatient (BNVA) | payer MEDICAID, SELFPAY | PROVIDERS: PCP Internal Medicine; Visit Provider Registered Nurse Emergency | DX: G62.9 Polyneuropathy, unspecified (principal) | CPT/HCPCS: 99212; J7336 ==

== ENCOUNTER → 2023-05-16 12:56 | Outpatient (REF) | payer MEDICAID, SELFPAY ==
--- NOTE | 2023-05-16 13:00 | HM_ITS ---
* Total monitoring time 2 days. * Underlying rhythm is sinus with an average rate of 77/Min. Range 55 to 134/Min. * Rare supraventricular ectopy with very brief runs. * Rare ventricular ectopy. * No significant pauses or AV blocks. * No patient markers or diary events. MTDD
--- NOTE | 2023-05-16 13:00 | CA_ITS ---
Transthoracic Echocardiogram Patient (Last, First, Middle): Windy Mcfarlane, Gender: Female Date of : 1975 Age: 47 Procedure Date: 05/16/2023 Procedure Type: Transthoracic Echocardiogram Location: OP Height: 165.1 cm Weight: 124.74 kg BSA: 2.26 m2 Heart Rate: bpm BP: 125 / 60 mmHg Referring MD: Brice Lira MD Symptoms: R00.2 - Palpitations Study Quality: Fair ECG Rhythm: Sinus Conclusions: - The left ventricular systolic function is normal. The calculated ejection fraction is 65% by biplane method. - No obvious valvular pathology seen on this study. Findings Left Ventricle Normal left ventricular cavity size. The left ventricular systolic function is normal. The calculated ejection fraction is 65% by biplane method. There is no evidence of regional wall motion abnormalities. Diastolic function is normal for age. There is mild septal asymmetric hypertrophy. Right Ventricle Normal right ventricular cavity size and systolic function. Atria The left atrium is mildly dilated. The right atrium is normal in size. Aortic Valve There is a normal trileaflet aortic valve. There is no aortic valve stenosis. There is no aortic valve regurgitation. Mitral Valve The mitral valve appears normal. There is no mitral valve regurgitation. There is no mitral valve stenosis. Pulmonic Valve The pulmonic valve is likely normal. Tricuspid Valve Normal tricuspid valve structure. There is trace tricuspid valve regurgitation. There is no evidence of pulmonary hypertension. Great Vessels The asc aorta is normal in size. Venous The inferior vena cava is normal in size and collapses greater than 50% with inspiration. Pericardium/Pleural There is no evidence of pericardial effusion. Prior Study Comparison No prior study available for comparison. Recommendations, Care & Conclusions No obvious valvular pathology seen on this study. Measurements 2D Linear Measurements IVSd: 1.11 0.6-0.9/0.6-1.0 cm LVIDd: 4.98 3.9-5.3/4.2-5.9 cm LVIDd Index: 2.20 2.4-3.2/2.2-3.1 cm/m2 LVIDs: 3.25 2.0-3.6 cm LVPWd: 0.98 0.7-1.1 cm Ao Root: 3.10 2.1-3.5 cm LA Diam: 4.10 2.7-3.8/3.0-4.0 cm LAIDs Index: 1.81 1.5-2.3 cm/m2 LV Mass: 239.24 67-162/88-224 g LV Mass Index: 105.86 43-95/49-115 g/m2 LVOT Diam: 2.20 3.0+(-)1.3 cm 2D Systolic Function EF 4C: 64.50 >55% EF 2C: 65.90 >55% EF BiP: 65.30 >55% Mitral Valve MV Pk E: 0.99 MV PK A: 0.82 MV Decel Time: 144.00 E/A: 1.20 E'Lateral: 9.68 E'Medial: 8.16 E/E' Med: 12.10 E/E' Lat: 10.20 PHT: 42.00 MVA PHT: 5.24 Decel Bertie: 6.85 Aortic Valve AoV Pk Estevan: 1.66 AoV Mn Estevan: 1.19 AoV VTI: 0.42 AoV Pk Grad: 11.00 Aov Mn Grad: 7.00 RONALDO Cont.VTI: 2.34 LVOT LVOT Pk Estevan: 1.06 LVOT Mn Estevan: 0.67 LVOT VTI: 0.26 LVOT Pk Grad: 4.00 LVOT Mn Grad: 2.00 LVOT Diam: 2.20 LVOT Area: 3.80 Diastolic Function MV Pk E: 0.99 MV Pk A: 0.82 E/A: 1.20 E'Medial: 8.16 E/E' Med: 12.10 E' Laterial: 9.68 E/E' Lat: 10.20 Right Ventricle TAPSE (mm): 36.00 TVS' Estevan: 14.00 Tricuspid Valve TR Pk Estevan: 1.75 TR Pk Grad: 12.00 RA Press: 3.00 RVSP: 15.00 Great Vessels Aorta Ao Root-2D: 3.10 2.0-3.7 cm Ao Asc: 3.20 2.1-3.4 cm Pulmonary Valve PV Pk Estevan: 0.87 Peak PV Grad: 3.00 Updated in Other Vendor System with Status of Final Brice Lira MD electronically signed on 05/17/2023 3:37:19 PM with status of Final
== END ==
LOC: HO.CARD 12:56
PROVIDERS: PCP Internal Medicine; Visit Provider Internal Medicine
DX: R00.2 Palpitations (principal)
CPT/HCPCS: 93225; 93306

== ENCOUNTER → 2023-05-16 13:00 | Outpatient (BNV) | payer MEDICAID, SELFPAY | PROVIDERS: PCP Internal Medicine; Visit Provider Internal Medicine | DX: R00.0 Tachycardia, unspecified (principal) | CPT/HCPCS: 93227; 93306 ==

== ENCOUNTER 2023-06-06 12:48 | Outpatient (AMB) | payer MEDICAID, SELFPAY ==
[2023-06-06 13:07] VITALS: BP 102/74; PULSE 58; O2SAT 99; BMI 42.4
--- NOTE | 2023-06-06 13:07 | A.OFFVIS_ITS ---
Intake Vital Signs 06/06/23 13:07 Height 5 ft 8 in Weight 278 lb 14.156 oz BMI 42.4 BP 102/74 Blood Pressure Location Lt brachial Position Sitting Pulse 58 Pulse Source Pulse Oximeter Pulse Oximetry (%) 99 Oxygen Delivery Method Room Air Intake Visit Reasons: Sleep Study Follow Up Intake Note: pt is here for follow up of TANA, she is getting irritation of the skin around the mask area, with burning, it gets better and comes back again. She has a full face mask. Nylon Machine Operator Required: No Allergies ciprofloxacin [From CIPRO] Allergy (Severe, Verified 06/06/23 13:36) GI PAIN vancomycin Allergy (Unknown, Uncoded 06/06/23 13:36) anaphylaxis Medication List - Last Reconciled 06/06/23 by Reggie Schmidt MD albuterol sulfate mg inhalation QID PRN albuterol sulfate 90 mcg/actuation (ProAir HFA) 2 puffs inhalation Q6H PRN baclofen 20 mg PO TID tjmfrpvmof-psoauiilscjhe-hyqi 50-325-40 mg 1 tab PO Q4H calcium carbonate-vitamin D3 600 mg-10 mcg (400 unit) 1 tab PO BID cholecalciferol (vitamin D3) 50 mcg PO DAILY clonazepam 0.5 mg PO DAILY PRN cyclobenzaprine 10 mg PO TID PRN dicyclomine 20 mg PO TID fexofenadine (Amada Allergy) 180 mg PO DAILY fluconazole 150 mg PO Q3D PRN fluticasone propionate 110 mcg/actuation (Flovent HFA) 110 mcg inhalation DAILY fluticasone propionate 50 mcg/actuation 1 spray intranasal QAM gabapentin 300 mg PO TID ibuprofen 600 mg PO Q8H PRN ibuprofen 800 mg PO Q8H levonorgestrel (Mirena) 20 mcg intrauterine DAILY lidocaine 5% 1 patch topical QAM lidocaine-prilocaine 2.5-2.5 % 1 appl topical ONCE loperamide mg PO Q4-6H PRN montelukast 10 mg PO QPM pantoprazole 40 mg PO DAILY propranolol 10 mg PO BID sertraline 75 mg PO DAILY ustekinumab (Stelara) 90 mg subcut Q8W valacyclovir 1,000 mg PO DAILY zolpidem (Ambien) 10 mg PO BEDTIME Do you need a note to return to daycare/school/sports/work: No HPI Sleep Study Follow Up HPI Details Windy is 47 years old very pleasant female who is morbidly obese, and confirmed case of obstructive sleep apnea. Her sleep apnea is mild but it continue to be symptomatic in spite of conservative measures. .She is a mouth breather and does snore a lot So it was decided to put her on CPAP therapy. She has been using it for more than a month. very regularly. She sleeps much better and wakes up refreshed. She is having contact dermatitis on her both cheeks, seems to be allergy to the inner lining of the mask. It does go away with local application of cortisone cream, but as soon as. She stopped using the cream it comes back Her breathing is fairly under control and stable and she uses albuterol only once in a while. [facility] Medical History COVID Obesity, morbid, BMI 40.0-49.9 Somnolence, daytime TANA (obstructive sleep apnea) Allergic rhinitis Bronchial asthma Trigger finger Dysuria Encounter for Papanicolaou smear for cervical cancer screening Asthma Insomnia Crohn's disease Surgical History History of carpal tunnel surgery Hx of laparoscopic gastric banding Hx of breast reduction, elective Family History Father HIV (human immunodeficiency virus infection) Mother Hypertension Maternal Grandmother Diabetes mellitus Maternal Grandfather Hypertension Lymphoma Paternal Grandfather No problems noted. 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/ Gender identity: Female Female Reproductive History Menstrual Age of Menarche: 13 Review of Systems Const All systems reviewed & are unremarkable except as noted in HPI and below Eyes Reports no additional complaints ENT Reports nasal congestion (MILD OFF AND ON) Card Denies chest pain, Denies irregular heart rhythm and Denies leg edema Resp Reports as per HPI GI Reports no additional complaints and Reports other (BEING TREATED FOR CROHN'S DISEASE) Reports no additional complaints Musc Reports no additional complaints Skin/Breast Reports system reviewed and no additional complaints, except as documented Neuro Reports no additional complaints Psych Reports no additional complaints and Reports depression (MILD DEPRESSION BEING TREATED WITH SERTRALINE) Endo Reports no additional complaints Physical Exam Vital Signs: Last Vital Signs Pulse 58 06/06/23 13:07 BP 102/74 06/06/23 13:07 Pulse Ox 99 06/06/23 13:07 Oxygen Delivery Method Room Air 06/06/23 13:07 BMI result Body Mass Index 42.4 Const General: healthy appearing (EXCEPT FOR BEING OVERWEIGHT), comfortable, no acute distress, alert and awake Orientation/consciousness: patient oriented x3 HEENT Head: Yes normal to inspection General nose exam: No nasal polyps present and No nasal discharge present Face and sinus: Yes sinuses nontender Mouth: oropharynx normal Throat: No posterior oropharynx normal (NARROW AND CROWDED, MALLAMPATI CLASS 3) Eyes General: appearance normal, both eyes and all related structures Neck Neck: Yes normal visual inspection, Yes no lymphadenopathy, Yes trachea midline and Yes no JVD Thyroid: Thyroid normal Chest Chest palpation & inspection: normal inspection of the chest, normal palpation of entire chest wall and no tenderness Resp Effort & Inspection: normal respiratory effort and other (BREATH SOUNDS ARE DIMINISHED OVER THE BASILAR AREAS BECAUSE OF HER OBESITY) Auscultation: clear to auscultation bilaterally, no crackles, no rhonchi and no wheezes Cardio Palpation: normal PMI Rate: regular rate Rhythm: regular rhythm Heart sounds: no gallops and no murmurs Peripheral pulses: Peripheral pulses 2+ throughout GI Palpation (GI): Soft to palpation, nontender, No hepatosplenomegaly present and no masses Auscultation: normal bowel sounds Back/Spine/Pelvis Thoracic/Lumbar Spine: thoracic and lumbar spine normal to inspection Skin General skin exam: no rashes or lesions noted Neuro General: patient oriented x3 and no focal motor deficits Cranial nerves: Yes CN's II-XII intact bilaterally Extrem General: Yes normal to inspection, Yes no clubbing, cyanosis or edema and Yes no calf tenderness Psych Appearance: grossly abnormal and poorly kempt Speech and movement: Normal speech and movement present Results Reviewed Results Reviewed: Compliance report is reviewed and she has used 30/30 nights, 100%. Average use per night. 7 hours 39 minutes Pressure used 11-13 cm. No air leak noted. Residual AHI 1.3 Assessment & Plan Assessment & Plan (1) Obesity, morbid, BMI 50 or higher: Comment: She is a case of morbid obesity. She has lost some weight and current BMI 42.4 Code(s): E66.01 - Morbid (severe) obesity due to excess calories Plan: Commended for losing weight and is encouraged to keep on losing weight, goal would be BMI of 30 (2) TANA (obstructive sleep apnea): Comment: She is the a case of obstructive sleep apnea which was mild mostly in supine position with nocturnal hypoxemia. She tried conservative measures but did not succeed and remained symptomatic. Hence she was started. On CPAP therapy She is using CPAP therapy very regularly and is definitely benefiting. Sleep quality has much improved and she. Does not snore anymore Having issue of contact dermatitis. On the cheeks She is advised to use hydrocortisone cream locally under the mask lining for a few days at a time. We are looking for some non silicon lining that she may be able to use. Code(s): G47.33 - Obstructive sleep apnea (adult) (pediatric) Plan: Encouraged to keep on using CPAP regularly every night (3) Allergic rhinitis: Comment: SHE HAS MILD INTERMITTENT CHRONIC ALLERGIC RHINITIS. OKAY TO CONTINUE USING FEXOFENADINE 180 MG ONCE A DAY P.R.N. CONTINUE MONTELUKAST 10 MG DAILY. Code(s): J30.9 - Allergic rhinitis, unspecified Plan: ABOVE (4) Bronchial asthma: Comment: PATIENT DOES HAVE LONGSTANDING HISTORY OF BRONCHIAL ASTHMA. IT HAS BEEN MILD, INTERMITTENT , AND CURRENTLY IS IN ACTIVE. Code(s): J45.909 - Unspecified asthma, uncomplicated Plan: IT SEEMS THAT SHE HAS ALLERGIC TYPE OF BRONCHIAL ASTHMA, TX ALBUTEROL HFA 2 PUFFS Q 4-6 HOURS BUT ONLY P.R.N.. Coding Level of Care Code Est Pt Level 3 (46444) Diagnoses Obesity, morbid, BMI 50 or higher E66.01 TANA (obstructive sleep apnea) G47.33 Allergic rhinitis J30.9 Bronchial asthma J45.909
== END 2023-06-06 13:39 | disposition home or self-care (01) ==
PROVIDERS: PCP Internal Medicine; Referring Provider Internal Medicine; Visit Provider Internal Medicine
DX: E66.01 Morbid (severe) obesity due to excess calories (principal); G47.33 Obstructive sleep apnea (adult) (pediatric); J30.9 Allergic rhinitis, unspecified; J45.909 Unspecified asthma, uncomplicated
CPT/HCPCS: 99213

== ENCOUNTER → 2023-06-06 12:48 | Outpatient (BNVA) | payer MEDICAID, SELFPAY | PROVIDERS: PCP Internal Medicine; Visit Provider Internal Medicine | DX: G47.33 Obstructive sleep apnea (adult) (pediatric) (principal); J45.909 Unspecified asthma, uncomplicated; J30.9 Allergic rhinitis, unspecified; E66.01 Morbid (severe) obesity due to excess calories; Z68.41 Body mass index [BMI] 40.0-44.9, adult | CPT/HCPCS: 99212 ==

== ENCOUNTER 2023-06-09 13:06 | Outpatient (AMB) | payer MEDICAID, SELFPAY ==
[2023-06-09 13:47] VITALS: BP 100/74; PULSE 68; BMI 42.4
--- NOTE | 2023-06-09 13:47 | MHC.OFFVIS ---
Intake Vital Signs 06/09/23 13:47 Height 5 ft 8 in Weight 279 lb 1.683 oz BMI 42.4 BP 100/74 Blood Pressure Location Lt brachial Position Sitting Pulse 68 Pulse Source Pulse Oximeter Intake Visit Reasons: 2 months after echo & holter Broadcast Technician Required: Yes Broadcast Technician Language: Polish Allergies ciprofloxacin [From CIPRO] Allergy (Severe, Verified 06/09/23 13:49) GI PAIN vancomycin Allergy (Unknown, Uncoded 06/09/23 13:49) anaphylaxis Medication List - Last Reconciled 06/09/23 by FE Mcmahan albuterol sulfate mg inhalation QID PRN albuterol sulfate 90 mcg/actuation (ProAir HFA) 2 puffs inhalation Q6H PRN baclofen 20 mg PO TID [id number]-aqtp 50-325-40 mg 1 tab PO Q4H calcium carbonate-vitamin D3 600 mg-10 mcg (400 unit) 1 tab PO BID cholecalciferol (vitamin D3) 50 mcg PO DAILY clonazepam 0.5 mg PO DAILY PRN cyclobenzaprine 10 mg PO TID PRN dicyclomine 20 mg PO TID fexofenadine (Amada Allergy) 180 mg PO DAILY fluconazole 150 mg PO Q3D PRN fluticasone propionate 110 mcg/actuation (Flovent HFA) 110 mcg inhalation DAILY fluticasone propionate 50 mcg/actuation 1 spray intranasal QAM gabapentin 300 mg PO TID ibuprofen 600 mg PO Q8H PRN ibuprofen 800 mg PO Q8H levonorgestrel (Mirena) 20 mcg intrauterine DAILY lidocaine 5% 1 patch topical QAM lidocaine-prilocaine 2.5-2.5 % 1 appl topical ONCE loperamide mg PO Q4-6H PRN montelukast 10 mg PO QPM pantoprazole 40 mg PO DAILY propranolol 10 mg PO BID sertraline 75 mg PO DAILY ustekinumab (Stelara) 90 mg subcut Q8W valacyclovir 1,000 mg PO DAILY zolpidem (Ambien) 10 mg PO BEDTIME HPI 2 months after echo & holter HPI Details Windy is a 47-year-old male past medical history of morbid obesity, sleep apnea who was recently evaluated for elevated heart rates and underwent a Holter monitor and echocardiogram. She now presents for follow-up. Today she reports that she recently started on propranolol for her headaches. Since then she is noticing less heart palpitations. When she gets it feels like a dizzy sensation then followed by a very rapid heartbeat. The fast heartbeat can last up to an hour. She has not had presyncope, syncope, falls. No shortness of breath, chest discomfort, PND, orthopnea or edema. She is taking her meds as directed. She is asking if Ozempic is okay for her to use. She does only light physical activity at home. She is trying to get disability for her fibromyalgia. [facility] Medical History COVID Obesity, morbid, BMI 40.0-49.9 Somnolence, daytime TANA (obstructive sleep apnea) Allergic rhinitis Bronchial asthma Trigger finger Dysuria Encounter for Papanicolaou smear for cervical cancer screening Asthma Insomnia Crohn's disease Surgical History History of carpal tunnel surgery Hx of laparoscopic gastric banding Hx of breast reduction, elective Family History Father HIV (human immunodeficiency virus infection) Mother Hypertension Maternal Grandmother Diabetes mellitus Maternal Grandfather Hypertension Lymphoma Paternal Grandfather No problems noted. 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/ Gender identity: Female Female Reproductive History Menstrual Age of Menarche: 13 Review of Systems Const All systems reviewed & are unremarkable except as noted in HPI and below ENT Denies dizziness Card Denies chest pain, Denies chest pain at rest, Denies chest pain with activity, Denies rapid heart rate, Denies pedal edema, Denies edema, Denies leg edema, Denies lightheadedness, Denies palpitations, Denies dyspnea, Denies dyspnea on exertion and Denies orthopnea Resp Denies cough, Denies dyspnea and Denies dyspnea on exertion GI Denies hematochezia and Denies change in stool character Musc Denies abnormal gait, Denies limited range of motion, Denies muscle cramps, Denies muscle weakness, Denies numbness, Denies radiating pain into limb, Denies stiffness and Denies tingling Neuro Denies abnormal gait, Denies dizziness, Denies numbness and Denies tingling Endo Denies palpitations Physical Exam Vital Signs: Last Vital Signs Pulse 68 06/09/23 13:47 BP 100/74 06/09/23 13:47 BMI result Body Mass Index 42.4 Const General: cooperative, healthy appearing, comfortable and no acute distress Orientation/consciousness: patient oriented x3 Neck Neck: Yes normal visual inspection Resp Effort & Inspection: normal respiratory effort Auscultation: clear to auscultation bilaterally, no crackles, no rales, no rhonchi and no wheezes Cardio Jugular venous distension: no JVD Rate: regular rate Rhythm: regular rhythm Heart sounds: S1 normal heart sound present, S2 normal heart sound present, no murmurs and no rubs Neuro General: patient oriented x3 Extrem General: Yes normal to inspection and No no pedal edema Psych Appearance: grossly normal Mental Status: mental status grossly normal Speech and movement: Normal speech and movement present Assessment & Plan Assessment & Plan (1) Heart palpitations: Code(s): R00.2 - Palpitations Plan: Reports of heart palpitations, fast heart rates. Description of symptoms concerning for possible supraventricular tachycardia. She did undergo a Holter monitor on 05/16/2023 which showed sinus rhythm, average heart rate 77, heart rate range 55 to 134, rare brief SVE runs. Echocardiogram done 05/16/2023 showed EF 65%, normal valves, left atrium mildly dilated. No regional wall motion abnormality. Test results reviewed with her in detail. She says that her palpitations have greatly lessened since starting on propranolol for headaches. She is currently on low-dose propranolol at 10 mg b.i.d.. She does state this has helped her headaches. Considered cardiac event monitor however patient declines as she had skin reaction to the electrode when wearing Holter monitor. She may be having runs of supraventricular tachycardia based on short SVE seen on Holter. This possible diagnosis reviewed with her. Spent time reviewing vagal maneuvers. Informed that she may take an additional propranolol dose if she is experiencing sustained rapid heartbeat. Emergency care should be sought as needed for fast heartbeats. Cardiology office visit 6 months, sooner if needed. (2) PAC (premature atrial contraction): Code(s): I49.1 - Atrial premature depolarization Plan: Short SVE run seen on Holter monitor. (3) Obesity, morbid, BMI 40.0-49.9: Comment: Continues to be obese, has not been able to lose much weight Code(s): E66.01 - Morbid (severe) obesity due to excess calories Plan: Patient morbidly obese. Asking if Ozempic can be taking with her cardiac findings. Ozempic is known to increase the heart rate and increase the incidence of tachy arrhythmia. In patient with possible SVT this is not ideal. Will forward this note to her PCP. Plan Time spent on chart review, documentation, interview and assessment Coding Level of Care Code Est Pt Level 4 (38646) Diagnoses Heart palpitations R00.2 PAC (premature atrial contraction) I49.1 Obesity, morbid, BMI 40.0-49.9 E66.01 Time Spent (min) 28
== END 2023-06-09 14:27 | disposition home or self-care (01) ==
PROVIDERS: PCP Internal Medicine; Visit Provider Nurse Practitioner Family
DX: R00.2 Palpitations (principal); I49.1 Atrial premature depolarization; E66.01 Morbid (severe) obesity due to excess calories
CPT/HCPCS: 99214

== ENCOUNTER → 2023-06-09 13:06 | Outpatient (BNVA) | payer MEDICAID, SELFPAY | PROVIDERS: PCP Internal Medicine; Visit Provider Nurse Practitioner Family | DX: R00.2 Palpitations (principal); I49.1 Atrial premature depolarization; E66.01 Morbid (severe) obesity due to excess calories; Z68.41 Body mass index [BMI] 40.0-44.9, adult | CPT/HCPCS: 99212 ==

== ENCOUNTER 2023-06-20 13:09 | Outpatient (AMB) | payer MEDICAID, SELFPAY ==
--- NOTE | 2023-06-20 13:14 | A.OFFVIS_ITS ---
Intake Vital Signs 06/20/23 13:20 Height 5 ft 8 in Weight 279 lb BMI 42.4 Intake Visit Reasons: Ov- Right knee OA last injection 03/10/23 Intake Note: Windy a 47 year old female presents today for a follow up of bilateral knee pain, last injection to her right knee on 03/10/23. Patient reports right knee injection provided her with relief until recently. She is requesting to have bilateral knee injections. Allergies ciprofloxacin [From CIPRO] Allergy (Severe, Verified 06/20/23 13:22) GI PAIN vancomycin Allergy (Unknown, Uncoded 06/20/23 13:22) anaphylaxis HPI Ov- Right knee OA last injection 03/10/23 HPI Details 47-year-old female who returns to the [facility] today for a follow-up of bilateral knee pain. She had her last right knee injection on 03/10/24 which provided her relief until recently. She would like to have bilateral knee injections. [facility] Medical History COVID Obesity, morbid, BMI 40.0-49.9 Somnolence, daytime TANA (obstructive sleep apnea) Allergic rhinitis Bronchial asthma Trigger finger Dysuria Encounter for Papanicolaou smear for cervical cancer screening Asthma Insomnia Crohn's disease Surgical History History of carpal tunnel surgery Hx of laparoscopic gastric banding Hx of breast reduction, elective Family History Father HIV (human immunodeficiency virus infection) Mother Hypertension Maternal Grandmother Diabetes mellitus Maternal Grandfather Hypertension Lymphoma Paternal Grandfather No problems noted. 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 Tenderness along the medial and lateral joint line. Full ROM with crepitus. Negative Ivan?s. No ligamentous laxity. NVI. Office Procedures Joint Injection/Drain Joint Injection/Drain Primary Site: right knee Secondary Site: left knee Prep: site was prepped using aseptic technique, ethochloride spray was applied and injection warnings given Injected: 80 mg of, DepoMedrol, with 8 mL of, 1% plain lidocaine and in the joint Approach Used: anterolateral Procedure: The patient tolerated the procedure well and there was some relief with the local anesthesia Coding 13034 - Glenohumeral/Tronchanteric Bursa/Intraarticular Procedure code (CPT) selection complete Assessment & Plan Assessment & Plan (1) Patellofemoral arthritis of right knee: Code(s): M17.11 - Unilateral primary osteoarthritis, right knee Plan We discussed options today which include steroid injection. They did consent to move forward with the bilateral knee injection, which was tolerated well. I recommended rest, ice and elevation and OTC anti-inflammatories PRN for discomfort. If symptoms persist or worsens over the next 6-8 weeks, patient will contact the office, otherwise follow-up as needed. Patient Instructions: Scribed for Juanita Hannon PA-C, by Abelino Acosta medical anthropologist, on 06/20/2023 at 1:30 PM EST. IJuanita PA-C, have personally reviewed and agree with the information entered by the scribe. Coding Level of Care Code Est Pt Level 3 (63310) Diagnoses Patellofemoral arthritis of right knee M17.11 CPT Codes Coding - Joint 7: 90290 - Glenohumeral/Tronchanteric Bursa/Intraarticular ([id number])
[2023-06-20 13:20] VITALS: BMI 42.4
== END 2023-06-20 14:05 | disposition home or self-care (01) ==
PROVIDERS: PCP Internal Medicine; Visit Provider Physician Assistant
DX: M17.11 Unilateral primary osteoarthritis, right knee (principal)
CPT/HCPCS: 20610; 99213

== ENCOUNTER → 2023-06-20 13:09 | Outpatient (BNVA) | payer MEDICAID, SELFPAY | PROVIDERS: PCP Internal Medicine; Visit Provider Physician Assistant | DX: M17.11 Unilateral primary osteoarthritis, right knee (principal); M25.562 Pain in left knee | CPT/HCPCS: 20610; 99212; J1040 ==

== ENCOUNTER 2023-07-05 11:00 | Outpatient (RCR) | payer MEDICAID, SELFPAY ==
--- NOTE | 2023-03-10 11:00 | MHC.PT.EP ---
[facility] [place] Office [place] Office [place] Office [address] Harjinder Lomeli [address] [phone] F: [phone] F: [phone] F: [phone] F: [phone] Physical Therapy Plan of Care Date of Evaluation: 03/07/23 Date of Surgery: N/A Diagnosis: lumbar radiculopathy Assessment: Pt is a 47yo female with chronic low back pain with radicular symptoms. Skilled PT indicated to reduce pain, promote pain-free ROM, teach exercises for core stabilization and management of symptoms, prescribe exercises to increase LE strength, and improve body mechanics. Frequency and Duration: The patient will be seen 2x/week x 6 weeks Short Term Goals: 1. In 3 weeks, patient will demonstrate ability to hold TAC with neutral pelvic position during standing exercises x 10 reps of exercises. 2. In 3 weeks, patient will be able to complete sit<>supine transition without increased pain using back protection techniques. 3. In 3 weeks, patient will be I with neutral positioning recommendations, and phase 2 lumbar stabilization exercises. 4. In 3 weeks, patient will be able to complete sit>stands without difficulty through hip ext MMT improvement by 1/2 grade. Mcfp Goals: 1. In 6 weeks, patient will report improved functional mobility as demonstrated by JORDAN score improvement by 20%. 2. In 6 weeks, pt will tolerate standing x 15 minutes with good activation of TAC as needed to reduce low back pain. 3. In 6 weeks, patient will be able to complete partial squat to leaf size picker 5# object from floor without increased back pain. Treatment Plan: Modalities to reduce pain, spasms and effusion. Manual therapy to restore motion and function. Therapeutic exercise to improve strength and flexibility. Neuromuscular re-education for posture and balance. Therapeutic activities to return to functional activities of daily living. Electronically signed by: Mayra Matos PT, DPT Please sign and return to therapist. Thank you for your referral.
--- NOTE | 2023-11-28 09:41 | MHC.PT.DC ---
[facility] [place] Office [place] Office [place] Office [address] Harjinder Lomeli [address] [phone] F: [phone] F: [phone] F: [phone] F: [phone] Physical Therapy Discharge Report Diagnosis: lumbar radiculopathy Date of Surgery: N/A Date of Evaluation: 03/07/23 Date of Discharge: 07/03/23 Treatments to Date: 11 Cancellations to Date: 1 No Shows to Date: Discharge Status: Achieved Goals Improved Function Independent with HEP Discharge Summary: Pt was referred to PT for low back pain, limiting her walking ability. Pt fully participated in 11 treatment sessions, and has met goal for ability to complete partial squat and lift 5# with good body mechanics. Improvement of JORDAN by 10%, Pt did receive the new SIJ brace and will wear it as needed for pain. Did not bring in the device to demonstrate wear at this time. Pt in agreement to D/C to HEP at this time. Thank you for this referral. Electronically signed by: Mayra Matos PT, DPT Please sign and return to therapist. Thank you for your referral.
== END 2023-11-28 09:42 | disposition home or self-care (01) ==
LOC: HO.PT 11:00
PROVIDERS: PCP Internal Medicine; Visit Provider Registered Nurse Emergency
DX: M47.816 Spondylosis without myelopathy or radiculopathy, lumbar region (principal)
CPT/HCPCS: 97014; 97110; 97140; 97162; 97530

== ENCOUNTER 2023-08-11 14:56 | Outpatient (AMB) | payer MEDICAID, SELFPAY ==
[2023-08-11 15:02] VITALS: BP 131/80; PULSE 76; RESP 18; O2SAT 99; BMI 42.3
--- NOTE | 2023-08-11 15:02 | MHC.OFFVIS ---
Vital Signs 08/11/23 15:02 08/11/23 15:33 08/11/23 15:48 Height 5 ft 8 in Weight 278 lb BMI 42.3 BP 131/80 122/81 126/76 Blood Pressure Location Lt brachial Lt brachial Lt brachial Position Sitting Sitting Sitting Respiration 18 Pulse 76 Pulse Source Pulse Oximeter Pulse Oximetry (%) 99 Oxygen Delivery Method Room Air Intake Visit Reasons: QUTENZA Allergies ciprofloxacin [From CIPRO] Allergy (Severe, Verified 08/11/23 15:03) GI PAIN vancomycin Allergy (Unknown, Uncoded 06/20/23 13:22) anaphylaxis HPI Comments Details: Patient presents back to the office today for her 2nd topical capsaicin application for bilateral peripheral neuropathy Patient applied EMLA cream prior to the appointment per instructions She denies any changes in her neuropathy, diagnoses, medications or allergies since last visit Denies any injuries, wounds, lesions, ulcers or abrasions to either feet Prior: Windy presents to the office today for 1st Qutenza topical application for bilateral peripheral neuropathy. She applied EMLA cream at home per instructions. Patient denies any changes to her painful bilateral peripheral neuropathy since last visit. Denies new meds, allergies or diagnoses. Patient denies any recent injuries or wounds to her feet. She has started PT for her back, is taking motrin, muscle relaxers and gabapentin with improvement in her pain but not sustained, pain returns when the medications wear off. Patient is holding off on any injections until she completed PT. Prior: Windy is a very pleasant 47-year-old female who presented to the office today for evaluation and management of her left foot pain. Patient endorses left foot pain for more than 7 years without inciting injury. Patient states that she has been told she has plantar fasciitis and also peripheral neuropathy. She is not diabetic. She has been under treatment of Podiatry where she has received cortisone injections in both feet that provided her minimal relief therefore her review consultant stated he will not be doing injections moving forward. Patient has pain rated as 5/10 today, aching and burning to both feet though she reports the left foot is worse than the right. She says the burning aching pain in her feet starts on the bottom and will radiate up into her ankles and lower calves. She says it feels like she is walking on bubbles. Patient also complaining of bilateral lower back pain without radiation into her buttocks thighs or lower extremities. This pain is also described as aching. Patient denies red flag symptoms including new loss of bowel, bladder or saddle anesthesia. Patient has not attempted physical therapy for her pain. She is currently taking Tylenol and gabapentin with minimal relief. She had a recent MRI of her lower back, results as per below. In terms of muscle damage condition is described as sharp, throbbing, pinching and burning. The pain is negatively impacting the patient's normal sleep, normal activities, normal function and overall mood. [facility] Medical History COVID Obesity, morbid, BMI 40.0-49.9 Somnolence, daytime TANA (obstructive sleep apnea) Allergic rhinitis Bronchial asthma Trigger finger Dysuria Encounter for Papanicolaou smear for cervical cancer screening Asthma Insomnia Crohn's disease Surgical History History of carpal tunnel surgery Hx of laparoscopic gastric banding Hx of breast reduction, elective Family History Father HIV (human immunodeficiency virus infection) Mother Hypertension Maternal Grandmother Diabetes mellitus Maternal Grandfather Hypertension Lymphoma Paternal Grandfather No problems noted. 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 Answers questions appropriately. Fully engaged in examination. Skin: warm, dry, intact. Feet exposed, no wounds, rashes or breaks in skin noted. Light touch sensation intact bilaterally. HEENT: Normocephalic. Hearing intact. Cardiac: External chest normal in appearance. Respiratory: No cough, audible wheezing or stridor. Abdomen: without gross distension. MS: No obvious swelling or deformities. Able to transition from sit to stand unassisted. Ambulates with bilaterally normal heel strike and toe off Neurological: Oriented to person, place, time and situation. Thought process intact. Psychiatric: Appropriate mood and affect. Good judgment and insight. Office Meds capsaicin-skin cleanser 8 % topical kit Performing Provider: Lisa Mejia APRN, CNP Performing Location: [facility] Administered by: Lisa Mejia APRN, CNP on 08/11/23 16:03 Dose Route Admin Location Dispensed Lot Number Expiration Date [facility] [employer] 4 ea topical 4 ea [id number] 10/23/25 38518-300-56 Risk Management Solution Comments: Patient applied topical EMLA cream to both feet prior to arrival for her scheduled appointment Feet exposed, no wounds, rashes or breaks in skin noted. Light touch sensation intact bilaterally. Four single use topical patches (179mg capsaicin) divided between feet, 2 patches per foot, wrapped and secured per package instructions. Patient monitored throughout the procedure with BP checks every 15 minutes. She tolerated the 30 minute application well. Assessment & Plan Assessment & Plan (1) Peripheral neuropathy: Code(s): G62.9 - Polyneuropathy, unspecified Category: Medical Plan Patient presented to the office today for 2nd Qutenza topical application for bilateral peripheral neuropathy. Qutenza application as per above. Cleansing gel applied prior to discharge, patient given cleansing gel for home use if needed. Patient tolerated procedure well, discharged home with no reported untoward effects. Ambulated out of the department with steady gait. All questions and concerns were answered. Patient will follow up in the office as planned for next Qutenza application, sooner if needed. Orders: Orders AMB Capsaicin Patch - Practice Supplied Today G62.9 - Polyneuropathy, unspecified
[2023-08-11 15:33] VITALS: BP 122/81
[2023-08-11 15:48] VITALS: BP 126/76
== END 2023-08-11 15:53 | disposition home or self-care (01) ==
PROVIDERS: PCP Internal Medicine; Visit Provider Registered Nurse Emergency
DX: G62.9 Polyneuropathy, unspecified (principal)
CPT/HCPCS: 99214

== ENCOUNTER → 2023-08-11 14:56 | Outpatient (BNVA) | payer MEDICAID, SELFPAY | PROVIDERS: PCP Internal Medicine; Visit Provider Registered Nurse Emergency | DX: G62.9 Polyneuropathy, unspecified (principal) | CPT/HCPCS: 99212; J7336 ==

== ENCOUNTER 2023-08-23 06:38 | Day surgery (SDC) | payer MEDICAID, SELFPAY ==
[2023-08-19 11:19] VITALS: BMI 42.4
--- NOTE | 2023-08-22 08:27 | HO.ANESPROP2 ---
Documented by User: Elmira Mercado NP 08/22/23 08:27 HPI - Anesthesia Eval Consult details Narrative: 47yo F for Upper Endoscopy and Colonoscopy PMFSH Active Problems Active Problems: All Active Problems PAC (premature atrial contraction) (Acute) Dizziness (Acute) Heart palpitations (Acute) Mass of right axilla (Acute) Mass of left axilla (Acute) Peripheral neuropathy (Acute) Plantar fasciitis, bilateral (Acute) Lumbar spondylosis (Acute) Patellofemoral arthritis of right knee (Acute) Right hand pain (Acute) History of carpal tunnel release of both wrists (Acute) Recurrent HSV (herpes simplex virus) (Acute) Chronic endometritis (Acute) Vaginal burning (Acute) Encounter for routine checking of intrauterine contraceptive device (IUD) (Acute) Obesity, morbid, BMI 50 or higher (Acute) Encounter for removal and reinsertion of intrauterine contraceptive device (IUD) (Acute) Numbness and tingling in both hands (Acute) Right lateral epicondylitis (Acute) Leukopenia (Acute) control counseling (Acute) Presence of 52 mg levonorgestrel-releasing intrauterine device (IUD) (Acute) Abnormal uterine bleeding (AUB) (Acute) Bilateral hand pain (Acute) Hip pain, bilateral (Acute) Low back pain (Acute) Crohn disease (Acute) Trigger finger, left ring finger (Acute) Trigger middle finger of left hand (Acute) Trigger middle finger of left hand (Acute) Surveillance for control, intrauterine device (Acute) Psoriasis (Acute) Yeast infection of the skin (Acute) Well woman exam with routine gynecological exam (Acute) COVID (Acute) Obesity, morbid, BMI 40.0-49.9 (Acute) Somnolence, daytime (Acute) TANA (obstructive sleep apnea) (Acute) Allergic rhinitis (Acute) Bronchial asthma (Acute) Encounter for Papanicolaou smear for cervical cancer screening (Acute) Dysuria (Acute) Past Medical History Medical History COVID Somnolence, daytime TANA (obstructive sleep apnea) Allergic rhinitis Bronchial asthma Trigger finger Dysuria Obesity, morbid, BMI 40.0-49.9 Encounter for Papanicolaou smear for cervical cancer screening Asthma Insomnia Crohn's disease Family History Family History Father HIV (human immunodeficiency virus infection) Mother Hypertension Maternal Grandmother Diabetes mellitus Maternal Grandfather Hypertension Lymphoma Paternal Grandfather No problems noted. Maternal Aunt Endometrial cancer Paternal Grandmother Colon cancer Maternal Uncle Pancreas cancer Liver cancer Surgical History Surgical History Hx of hand surgery History of carpal tunnel surgery Hx of laparoscopic gastric banding Hx of breast reduction, elective Social History Social History Household Members: Children Housing: House Are you a primary veterinarian laboratory animal care to a significant other at home: Yes Do you presently have visiting nurse or other home services: No Alcohol intake: never Patient Tobacco Use Status: Former Tobacco user Quit Date: age 41 Tobacco use type: Cigarette Years Smoked: 9 Advance Directives: No Advance Directives Information Provided: Yes Advance Directives on File: No service: No Current occupational status: unemployed 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/ Gender identity: Female Meds Allergies Allergy/AdvReac Type Severity Reaction Status Date / Time ciprofloxacin [From CIPRO] Allergy Severe GI PAIN Verified 08/11/23 15:03 vancomycin Allergy Severe Anaphylaxis Verified 08/19/23 11:16 Home Medications ?Medication ?Instructions ?Recorded ?Confirmed ?Last Taken ?Type ustekinumab 90 mg/mL subcutaneous 90 mg subcut Q8W 07/30/20 08/19/23 Unknown History syringe (Stelara) fluticasone propionate 110 110 mcg inhalation DAILY 02/19/21 08/19/23 02/19/21 09:45 History mcg/actuation HFA aerosol inhaler (Flovent HFA) albuterol sulfate 90 mcg/actuation 2 puff inhalation Q6H PRN 04/07/21 08/19/23 08/23/23 History aerosol inhaler (ProAir HFA) Shortness Of Breath Or Wheezing baclofen 10 mg tablet 20 mg PO TID 04/07/21 08/19/23 Unknown History dicyclomine 20 mg tablet 20 mg PO TID 04/07/21 08/19/23 Unknown History pantoprazole 40 mg tablet,delayed 40 mg PO DAILY 04/07/21 08/19/23 Unknown History release fexofenadine 180 mg tablet 180 mg PO DAILY 08/17/21 08/19/23 Unknown History (Amada Allergy) levonorgestrel 21 mcg/24 hours (8 20 mcg intrauterine DAILY 08/17/21 06/09/23 Unknown History yrs) 52 mg intrauterine device (Mirena) sertraline 50 mg tablet 75 mg PO DAILY 12/07/21 08/19/23 Unknown History albuterol sulfate 2.5 mg/3 mL 2.5 mg inhalation QID PRN 05/20/22 08/19/23 Unknown History (0.083 %) solution for nebulization Shortness Of Breath clonazepam 0.5 mg tablet 0.5 mg PO DAILY PRN Shortness Of 05/20/22 08/19/23 Unknown History Breath gabapentin 300 mg capsule 300 mg PO TID 12/30/22 08/19/23 Unknown History propranolol 20 mg tablet 10 mg PO BID 01/21/23 08/19/23 Unknown History loperamide 2 mg capsule 2 mg PO Q4-6H PRN diarrhea 03/08/23 08/19/23 Unknown History untncgqyxy-ybpemvvsitlvl-frksnqss 1 tab PO Q4H 04/07/23 08/19/23 Unknown History 50 mg-325 mg-40 mg tablet calcium carbonate 600 mg-vitamin 1 tab PO BID 04/07/23 08/19/23 Unknown History D3 10 mcg (400 unit) tablet fluticasone propionate 50 1 spray intranasal QAM 04/07/23 08/19/23 Unknown History mcg/actuation nasal spray,suspension zolpidem 10 mg tablet (Ambien) 10 mg PO BEDTIME Insomnia 04/07/23 08/19/23 Unknown History ibuprofen 800 mg tablet 800 mg PO Q8H 04/21/23 06/09/23 Unknown History lidocaine 5 % topical patch 1 patch topical QAM 06/06/23 06/09/23 Unknown History Exam Height,Weight and Vital Signs: Height 5 ft 8 in Weight 126.552 kg Assessment and Plan Assessment Anesthesia Assessment: Chart Reviewed Documented by User: Stefanie Flores MD 08/23/23 07:29 PMFSH Past Medical History Medical History COVID Somnolence, daytime TANA (obstructive sleep apnea) Allergic rhinitis Bronchial asthma Trigger finger Dysuria Obesity, morbid, BMI 40.0-49.9 Encounter for Papanicolaou smear for cervical cancer screening Asthma Insomnia Crohn's disease Family History Family History Father HIV (human immunodeficiency virus infection) Mother Hypertension Maternal Grandmother Diabetes mellitus Maternal Grandfather Hypertension Lymphoma Paternal Grandfather No problems noted. Maternal Aunt Endometrial cancer Paternal Grandmother Colon cancer Maternal Uncle Pancreas cancer Liver cancer Surgical History Surgical History Hx of hand surgery History of carpal tunnel surgery Hx of laparoscopic gastric banding Hx of breast reduction, elective History of Problems with Anesthesia: No Social History Social History Household Members: Children Housing: House Are you a primary veterinarian laboratory animal care to a significant other at home: Yes Do you presently have visiting nurse or other home services: No Alcohol intake: never Patient Tobacco Use Status: Former Tobacco user Quit Date: age 41 Tobacco use type: Cigarette Years Smoked: 9 Advance Directives: No Advance Directives Information Provided: Yes Advance Directives on File: No service: No Current occupational status: unemployed 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/ Gender identity: Female Meds Allergies Allergy/AdvReac Type Severity Reaction Status Date / Time ciprofloxacin [From CIPRO] Allergy Severe GI PAIN Verified 08/11/23 15:03 vancomycin Allergy Severe Anaphylaxis Verified 08/19/23 11:16 Home Medications ?Medication ?Instructions ?Recorded ?Confirmed ?Last Taken ?Type ustekinumab 90 mg/mL subcutaneous 90 mg subcut Q8W 07/30/20 08/19/23 Unknown History syringe (Stelara) fluticasone propionate 110 110 mcg inhalation DAILY 02/19/21 08/19/23 02/19/21 09:45 History mcg/actuation HFA aerosol inhaler (Flovent HFA) albuterol sulfate 90 mcg/actuation 2 puff inhalation Q6H PRN 04/07/21 08/19/23 08/23/23 History aerosol inhaler (ProAir HFA) Shortness Of Breath Or Wheezing baclofen 10 mg tablet 20 mg PO TID 04/07/21 08/19/23 Unknown History dicyclomine 20 mg tablet 20 mg PO TID 04/07/21 08/19/23 Unknown History pantoprazole 40 mg tablet,delayed 40 mg PO DAILY 04/07/21 08/19/23 Unknown History release fexofenadine 180 mg tablet 180 mg PO DAILY 08/17/21 08/19/23 Unknown History (Amada Allergy) levonorgestrel 21 mcg/24 hours (8 20 mcg intrauterine DAILY 08/17/21 06/09/23 Unknown History yrs) 52 mg intrauterine device (Mirena) sertraline 50 mg tablet 75 mg PO DAILY 12/07/21 08/19/23 Unknown History albuterol sulfate 2.5 mg/3 mL 2.5 mg inhalation QID PRN 05/20/22 08/19/23 Unknown History (0.083 %) solution for nebulization Shortness Of Breath clonazepam 0.5 mg tablet 0.5 mg PO DAILY PRN Shortness Of 05/20/22 08/19/23 Unknown History Breath gabapentin 300 mg capsule 300 mg PO TID 12/30/22 08/19/23 Unknown History propranolol 20 mg tablet 10 mg PO BID 01/21/23 08/19/23 Unknown History loperamide 2 mg capsule 2 mg PO Q4-6H PRN diarrhea 03/08/23 08/19/23 Unknown History wsrmtfhsxo-nbycwjprodqxs-scxraoej 1 tab PO Q4H 04/07/23 08/19/23 Unknown History 50 mg-325 mg-40 mg tablet calcium carbonate 600 mg-vitamin 1 tab PO BID 04/07/23 08/19/23 Unknown History D3 10 mcg (400 unit) tablet fluticasone propionate 50 1 spray intranasal QAM 04/07/23 08/19/23 Unknown History mcg/actuation nasal spray,suspension zolpidem 10 mg tablet (Ambien) 10 mg PO BEDTIME Insomnia 04/07/23 08/19/23 Unknown History ibuprofen 800 mg tablet 800 mg PO Q8H 04/21/23 06/09/23 Unknown History lidocaine 5 % topical patch 1 patch topical QAM 06/06/23 06/09/23 Unknown History Exam Airway Mallampati Class: II TM Dist: >3cm Neck ROM: Full Loose/Missing/Broken Teeth: No Heart: RRR Lungs: CTA Assessment and Plan Assessment Anesthesia Assessment: Anesthesia Plan Discussed Final Anesthetic Review History of Problems with Anesthesia: No NPO: Yes ASA Class: III Final Preanesthetic Review: Meds/Allgs Chart Reviewed, Consent Obtained/Reviewed and Anes Risks/Benef Reviewed Patient Risk: Intermediate Procedure Risk: Intermediate Anesthetic Plan Anesthetic Plan: MAC: Disposition: Standard PACU
--- OUTSIDE RECORDS SUMMARY | 2023-08-23 06:40 | XMS_ITS | Patient Health Record ---
Author Organization [facility] Address [address] [place] [address] Care Team Providers Care Refractory Mixer Name Role Phone Reymundo WEEMS, Summer Primary Care Provider UnavailEmerson Pedersen Unavailable [phone] ALLERGIES Allergen (clinical drug ingredient) Drug/Non Drug Allergy documented on EMR Reaction Allergy Type Onset Date Status vancomycin Vancomycin HCl Unknown Drug Allergy A ctive ciprofloxacin cipro (uncoded) Unknown Allergy Active REASON FOR REFERRAL Referring Provider First Name Summer Referring Provider Last Name Reymundo Referred Organization [facility] Referred Provider Emerson Canales Referred Address [address] [facility],[address],[place], [place],[address], Referred Provider Specialty Gastroentero logy General Notes Elvia Ca 024 11:48:27 AM EDT > requested a [facility] for procedure with Dr. Canales on 08-23-2023 current referral expiers 08-20-2023 Referral Priority Routine MEDICATIONS Medication SIG (Take, Route, Frequency, Duration) Notes Start Date End Date Status Pantoprazole Sodium 40 MG TAKE 1 TABLET BY MOUTH EVERY DAY for 30 Active Sertraline HCl 50 MG 1 half tablet Orally Once a day Active Dicyclomine HCl 10.0 Milligram Take 1 or 2 capsules QID prn abdominal cramps and/or diarrhea Active Propranolol HCl 20 MG TAKE 1 TABLET BY MOUTH EVERY DAY Oral for 90 Active Fluconazole 150 MG TAKE 1 TABLET BY MOUTH DAILY. REPEAT ON DAY 2 AND ON DAY 7 DIRECTED. for 7 Active Imodium A-D 2 MG 1 or 2 tablets Orally Every 4 to 6 hours as needed for diarrhea for 30 days 08/14/2022 Active Dicyclomine HCl 20 MG TAKE 1 TABLET BY MOUTH THREE TIMES DAILY WITH MEALS for 30 Active Wcsnxwglmg-WPER-Iqlj eine 50-325-40 MG TAKE 1 TO 2 TABLETS BY MOUTH EVERY 4 HOURS NEEDED. NOT TO EXCEED 6 TABLETS PER 24 HOURS Oral for 5 Active Bentyl 10 MG 1 tablet Orally 1-2 QID prn abdominal cramps/discomfort 07/24/2013 Active Omeprazole 20 MG 1 capsule Orally Once a day 10/15/2015 Not-Taking Entyvio 300 MG as directed Intravenous every eight weeks Not-Taking Ranitidine HCl 300 MG 1 capsule Orally Once a day for 30 day(s) Not-Taking hydrOXYzine Pamoate 25 MG as directed Orally every 6 hrs Active Famotidine 40 MG 1 tablet at bedtime Orally Once a day for 30 day(s) 03/02/2019 Not-Taking Tylenol 325 MG 1 tablet as needed Orally prn Active Methotrexate 2.5 MG as directed Orally 6 pills a week Not-Taking Ambien 10 MG 1 tablet at bedtime as needed Orally Once a day Active azaTHIOprine 75 MG 2 Orally QD stopped in 02/202012/27/2017 Not-Taking Baclofen 20 MG/20ML Intrathecal Three times a day Active Acidophilus - as directed Orally 06/08/2018 Not-Taking Vitamin D 2000 UNIT 1 tablet Orally Once a day for 30 day(s) Active Meloxicam 15 MG TK 1 T PO QD Oral for 30 Not-Taking Fexofenadine HCl 180 MG 1 tablet as needed Orally Once a day for 30 day(s) Active traMADol HCl 50 MG 1 tablet as needed Orally every 6 hrs Not-Taking Diphenoxylate-Atropi ne 0 TAKE 1 TO 2 TABLETS BY MOUTH FOUR TIMES DAILY NEEDED FOR DIARRHEA only prn-rare Active Stelara 90 MG/ML ADMINISTER 1 INJECTION UNDER THE SKIN EVERY 8 WEEKS for 56 Active IMMUNIZATIONS Vaccine Route Administration Date Status Comme nts Influenza Unknown 02/21/2018 Administered Influenza Unknown 04/04/2019 Administered Influenza Unknown 12/24/2020 Administered Influenza Unknown 01/08/2021 Refused SOCIAL HISTORY Tobacco Use: Social History Observation Description Date Details (start date - stop date) Former Smoker NA - NA Sex Assigned At : Social History Observation Description Sex Assigned At Unknown Tobacco Use/Smoking Question Answer Notes Patient is a former smoker How long has it been since you last smoked? > 10 years PROBLEMS Problem Type ICD Code Onset Dates Problem Status W/U Status Risk SNOMED Code Notes Problem Colon cancer screening (Z12.11) Active confirmed Colon can cer screening (383234667) Problem Irritable bowel syndrome (K58.9) Active confirmed Irritable bowel syndrome (05824440) Problem Crohn's disease of both small and large intestine without complication (K50.80) Active confirmed 39934721 Problem Nausea (R11.0) Active confirmed 4093944 07 Problem Encounter for therapeutic drug level monitoring (Z51.81) Active confirmed 453202665 Problem Dysphagia (R13.10) Active confirmed Dys phagia (29104708) Problem Crohns disease of both small and large intestine without complication (K50.80) Active confirmed 22476627 Problem Gastroesophageal reflux disease, esophagitis presence not specified (K21.9) Active confirmed 906343553 Problem Diarrhea, unspecified type (R19.7) Active confirmed 79094365 Problem Crohn''s disease of both small and large intestine without complication (K50.80) Active confirmed 53487814 Problem Erythematous skin nodule (R22.9) Active confirmed 88053093 Problem Vaginal candidiasis (B37.3) Active confirmed 19755202 VITAL SIGNS Temperature 97.7 degrees Fahrenheit 06/30/2023 Blood pressure diastolic 00 mm Hg 06/30/2023 Height 65.5 in 06/30/2023 Blood pressure systolic 00 mm Hg 06/30/2023 Weight 275 lbs 06/30/2023 BMI 45.06 kg/m2 06/30/2023 Encounters Encounter Location Date Provider Diagnosis [facility] Outpatient [address] [place] [id number] 08/23/2023 Emerson Canales [facility] [address] [place] [phone] 02/17/2023 Emerson Canales [facility] [address] [place] [phone] 06/30/2023 Emerson Canales Crohns disease of jaquelin th small and large intestine without complication K50.80 ; Gastroesophageal reflux disease, esophagitis presence not specified K21.9 ; Dysphagia R13.10 and Colon cancer screening Z12.11 [facility] [address] [place] [phone] 12/30/2022 Emerson Canales [facility] [address] [place] [address] 02/17/2023 Emerson Canales [facility] [address] [place] [address] 05/13/2023 Emerson Canales ASSESSMENTS Encounter Date Diagnosis Assessment Notes Treatment Notes Treatment Clinical Notes 06/30/2023 Crohns disease of jaquelin th small and large intestine without complication (ICD-10 - K50.80) 06/30/2023 Gastroesophageal reflux disease, esophagitis presence not specified (ICD-10 - K21.9) 06/30/2023 Dysphagia (ICD-10 - R13.10) Call Dr. Cowan's office in [place] to ask them about your Lap Band and the swallowing trouble. I would recommend they do a Barium swallow to evaluate that. If you can't get an appointment with them let me know. 06/30/2023 Colon cancer screeni ng (ICD-10 - Z12.11) PLAN OF TREATMENT Pending Test Test Name Order Date CHEM 7 PROFILE 07/10/2020 LIVER PROFILE 08/13/2021 LIVER PROFILE 04/01/2015 LIVER PROFILE 01/08/2021 LIVER PROFILE 07/11/2017 LIVER PROFILE 05/23/2019 LIVER PROFILE 01/24/2018 LIVER PROFILE 07/08/2013 LIVER PROFILE 11/03/2015 LIVER PROFILE 07/15/2016 LIVER PROFILE 10/17/2018 LIVER PROFILE 12/11/2017 LIVER PROFILE 07/10/2020 LIVER PROFILE 07/12/2016 IRON + IBC (FE) 08/13/2021 CRP 01/08/2021 CRP 08/13/2021 CRP 01/24/2018 VITAMIN B12 AND FOLATE 08/13/2021 CBC w DIFF 07/12/2016 CBC w DIFF 04/01/2015 CBC w DIFF 07/11/2017 CBC w DIFF 01/08/2021 CBC w DIFF 07/08/2013 CBC w DIFF 11/03/2015 CBC w DIFF 01/24/2018 CBC w DIFF 08/13/2021 CBC w DIFF 07/15/2016 CBC w DIFF 10/17/2018 CBC w DIFF 05/09/2014 CBC w DIFF 12/11/2017 CBC w DIFF 07/10/2020 CBC w/o DIFF 05/23/2019 SED RATE (ESR) 08/13/2021 SED RATE (ESR) 01/08/2021 SED RATE (ESR) 01/24/2018 OTHER REF LAB TEST - MISC 07/15/2016 OTHER REF LAB TEST - MISC 07/12/2016 NUC HIDA SCAN 02/23/2014 PROMETHEUS THIOPURINE METABOLITES (TPMT) 01/24/2018 PROMETHEUS THIOPURINE METABOLITES (TPMT) 12/11/2017 PROMETHEUS THIOPURINE METABOLITES (TPMT) 07/12/2016 PROMETHEUS THIOPURINE METABOLITES (TPMT) 07/11/2017 T SPOT TB 01/02/2019 C DIFFICILE RFLX PCR 08/19/2022 Ferritin 08/13/2021 [facility] Anser UST 01/08/2021 GI PANEL 08/19/2022 Future Test Test Name Order Date COLONOSCOPY 05/08/2013 UPPER GI ENDOSCOPY 06/08/2018 COLONOSCOPY 06/08/2018 UPPER GI ENDOSCOPY BALLOOON DILATION OF ESOPH 06/30/2023 COLONOSCOPY 06/30/2023 Next Appt Details Provider Name:Emerson Canales , 08/23/2023 07:30:00 AM, [address] [place] [address] , [place], [place], [phone], Insurance Providers Payer Name Payer Address Payer Phone Subscriber Number Group Number Insured Name Patient Relationship to Insured Coverage Start Date Coverage End Date [place] [facility] [address] [place] [address] [id number] STEPHIE LLOYD Self - patient is the insured MEDICAL (GENERAL) HISTORY Medical History History ICD Code Colonoscopy 07-07-2012 Crohn's colitis-diagnosed in 2000- colonoscopy in 02/2009 at [facility] with diffuse colitis/ileitis-has been treated with Remicade, Humira, and azathioprine in the past at [facility]--Stephie reports that the mesalamines and azathioprine seem to exacerbate her GI symptoms with gas and cramps--however, at those time she is usually having active Crohn's disease symptoms as well---she was hospitalized at [facility] in 06/2013 for a flareup of the Crohn's and was treated with several days of IV steroids--restarted on Humira in early June,--increased to every week in 02/2014; she was started on azathioprine in April 2014. Her [facility] labs in June 2015 revealed her to be an intermediate metabolizer of azathioprine and a low azathioprine level. She stopped her azathioprine in the latter part of 2015, but resumed it in spring. She had worsening and somewhat refractory symptoms of active disease from April through August of 2017 and the Humira was switched to a trial of Entyvio infusions---started in mid-October,--did the 3 infusions in 6 weeks and is scheduled for the first 8 week infusion on 02/23/18. She has had E. nodusum as well. The Entyvio will be changed to Stelara in 01/2019 for the Crohn's and psoriasis Denies MS,DM,CVA,Lung disease,renal dise ase Anemia--sees Dr. Pulido/Dr. Griffiths--rece deb IV Iron in the past Fibromyalgia Pancreatitis--in 2000--no etiology-GB U/ S was neg--also neg. in 12/2012 Colonoscopy 05/21/13--very active colitis c/w Crohn's negative hepatitis B profile in April of 2013 negative H. pylori serology in 01/2014 Neg GB U/S and Normal HIDA with CCK in 2 014 asthma carpal tunnel bilateral GERD--EGD in 2000--no esophagitis--gastr itis with H.pylori Erythema nodusum--responsive to predniso ne Psoriasis started in 07/2018- ? due to Entyvio---started Methotrexate in 10/2018, but stopped in 2018 when she was started on Stelara instead of the Entyvio--sees Dr. Chu for Dermatology EGD in 08/2018--moderate-size d hiatal hernia, no esophagitis nor Saleh's esophagus Colonoscopy in 08/2018-some m ild colitis in the left colon, but all biopsies were negative for dysplasia. COVID in 11/2021 Surgical History Surgery Date(Month/Year) Breast reduction Lap Band in 2008--still in place Pneumothorax with chest tubes
[2023-08-23 06:56] VITALS: BMI 42.1
[2023-08-23 06:56] LABS: UPreg QC Valid YES; Urine Pregnancy NEGATIVE (NEGATIVE)
[2023-08-23 06:57] VITALS: BP 98/53; PULSE 78; RESP 18; TEMP 36.6; O2SAT 97
[2023-08-23] MEDS: Lactated Ringers 1,000 ML 100 ML IVCONT (07:03)
[2023-08-23 08:33] VITALS: BP 104/61; PULSE 62; RESP 16; TEMP 36.2; O2SAT 98
--- NOTE | 2023-08-23 08:43 | HO.OPN-COLON ---
Colonoscopy Operative Note Operative Note Date of Service: 08/23/23 Narrative: Colonoscopy to the cecum and TI with biopsies-Full note dictated Findings: Inactive Crohn's disease with scarring Bx taken in AC, TC, DC, Sigmoid, and Rectum Plan: Check path, continue Stelara.
--- NOTE | 2023-08-23 08:46 | P.BOP_ITS ---
Brief Operative Note Date of Service: 08/23/23 Pre-op diagnosis: GERD Post-op diagnosis: other (Hiatal hernia, Gastritis) Procedure: EGD with biopsies Surgeon: Emerson Canales MD Anesthesia: MAC Was an [employer] used for this Procedure?: No Estimated blood loss (mL): 2.0 Pathology: other (A. Descending duodenum B. Gastric antrum) Condition: stable Disposition: PACU
[2023-08-23 08:48] VITALS: BP 117/73; PULSE 55; RESP 16; TEMP 36.4; O2SAT 99
--- NOTE | 2023-08-23 10:19 | OP_ITS ---
DATE OF SERVICE: 08/23/2023 SURGEON: Emerson Canales MD INDICATIONS: The patient presents for evaluation of gastroesophageal reflux, intermittent dysphagia, long-standing Crohn colitis, and colorectal cancer screening. Full consent obtained from her for this, including risks of bleeding and perforation. PREOPERATIVE DIAGNOSIS: POSTOPERATIVE DIAGNOSIS: PROCEDURE PERFORMED: Esophagogastroduodenoscopy with biopsies, and colonoscopy to the cecum and terminal ileum with biopsies. ESTIMATED BLOOD LOSS: COMPLICATIONS: ANESTHESIA: Medication used, monitored anesthesia care. ASSISTANTS: SPECIMENS: PREOPERATIVE DIAGNOSES: Gastroesophageal reflux, Crohn colitis, colorectal cancer screening. POSTOPERATIVE DIAGNOSES: Gastroesophageal reflux, Crohn colitis, colorectal cancer screening, hiatal hernia, mild gastritis, rule out celiac disease, rule out dysplasia, internal hemorrhoids. DESCRIPTION OF PROCEDURE: The patient was placed in the left lateral decubitus position. The Olympus video gastroscope was passed in the posterior oropharynx and upper esophagus under direct vision. The scope was passed slowly to the distal esophagus. The gastroesophageal junction appeared at 33 cm. There was no sign of any esophagitis, stricture, nor Saleh esophagus. The scope was easily into the stomach. There was a small hiatal hernia. The hiatal hernia mucosa appeared normal. The scope was advanced to the pylorus. The duodenum was cannulated to the descending portion. The duodenum including the bulb appeared normal without mass or ulceration. Biopsies were obtained of the second and third portions of the duodenum. The scope was withdrawn back to the stomach. The gastric antrum had some mild areas of gastritis with some areas of erythema and some pallor, but no sign of any erosions or ulceration. There was good peristalsis. Biopsies were obtained. The scope was retroflexed visualizing the proximal stomach carefully, which appeared normal, without any sign of mass or ulceration. Scope was straightened and withdrawn back to the esophagus. Again, the hiatal hernia mucosa appeared normal. The esophageal mucosa appeared normal. There was no sign of any stricture nor narrowing and therefore, dilation was not performed. The scope was withdrawn from the patient. She was turned around for the colonoscopy. The digital rectal exam revealed no perianal disease nor other abnormalities. The Olympus video pediatric colonoscope was entered into the rectum and advanced easily to the cecum. In the cecum, I did identify cecal pouch with appendiceal orifice. The terminal ileum was cannulated and appeared normal for at least 5 or 10 cm. The scope was withdrawn back in the colon. The ileocecal valve did appear somewhat deformed consistent with her previous history of Crohn disease. There was some scarring in the cecum. There was no active Crohn's noted. The scope was slowly withdrawn assessing all mucosal surfaces carefully. Preparation was excellent throughout the colon. I did not visualize any sign of active colitis, polyps, nor angiodysplasia. There was some scarring noticed in various parts of the colon consistent with her underlying Crohn disease. I did obtain multiple biopsies in the ascending colon, transverse colon, descending colon, sigmoid colon, and rectum. The rectal mucosa appeared normal. Scope was retroflexed visualizing the distal rectum carefully, which appeared normal other than some internal hemorrhoids. The scope was straightened and withdrawn from the patient. She tolerated the procedure well and was returned to the recovery area in stable condition. IMPRESSION: 1. History of Crohn disease, rule out dysplasia. 2. Internal hemorrhoids. 3. Mild gastritis. 4. Hiatal hernia. PLAN: The results of biopsies will be checked. At this point, she continues to be doing well on her regimen of Stelara injections every 8 weeks and will continue that. I did advise to use her 40 mg of pantoprazole on a daily basis rather than just p.r.n. for better relief of reflux. She does advise me that her dysphagia has resolved after having her gastric Lap-Band balloon deflated. She will be following up with a surgeon in [place] for that as well. MD DANA Phan/TANIA / [phone]
== END 2023-08-23 09:45 | disposition home or self-care (01) ==
PROVIDERS: Nurse Practitioner; PCP Internal Medicine; Visit Provider Internal Medicine
PROC: (CPT 45380; principal; 2023-08-23 07:30)
DX: Z12.11 Encounter for screening for malignant neoplasm of colon (principal); K50.80 Crohn's disease of both small and large intestine without complications; K64.8 Other hemorrhoids; R13.10 Dysphagia, unspecified; K21.9 Gastro-esophageal reflux disease without esophagitis; K29.70 Gastritis, unspecified, without bleeding; K44.9 Diaphragmatic hernia without obstruction or gangrene; J45.909 Unspecified asthma, uncomplicated
CPT/HCPCS: 45380; 43239; 81025; 88305; 88313; 88342; J2704; J3010

== ENCOUNTER 2023-10-18 09:46 | Outpatient (AMB) | payer MEDICAID, SELFPAY ==
[2023-10-18 09:55] VITALS: BP 94/60; PULSE 72; O2SAT 98; BMI 41.7
--- NOTE | 2023-10-18 09:55 | A.OFFVIS_ITS ---
Vital Signs 10/18/23 09:55 Height 5 ft 8 in Weight 274 lb 7.608 oz BMI 41.7 BP 94/60 Blood Pressure Location Lt brachial Position Sitting Pulse 72 Pulse Source Pulse Oximeter Pulse Oximetry (%) 98 Oxygen Delivery Method Room Air Intake Visit Reasons: Sleep Study Follow Up Intake Note: pt is here for follow up of cpap usage, doing well. breathing is well, please refill flovent and singular Lumber Tripper Required: No Allergies ciprofloxacin [From CIPRO] Allergy (Severe, Verified 10/18/23 10:06) GI PAIN vancomycin Allergy (Severe, Verified 10/18/23 10:06) Anaphylaxis Medication List - Last Reconciled 10/18/23 by Reggie Schmidt MD albuterol sulfate 2.5 mg inhalation QID PRN albuterol sulfate 90 mcg/actuation (ProAir HFA) 2 puffs inhalation Q6H PRN baclofen 20 mg PO TID fkzuwkdlrx-lfhenwdumkizf-sfbl 50-325-40 mg 1 tab PO Q4H calcium carbonate-vitamin D3 600 mg-10 mcg (400 unit) 1 tab PO BID clonazepam 0.5 mg PO DAILY PRN cyclobenzaprine 10 mg PO TID PRN dicyclomine 20 mg PO TID fexofenadine (Amada Allergy) 180 mg PO DAILY fluconazole 150 mg PO Q3D PRN fluticasone propionate 110 mcg/actuation (Flovent HFA) 110 mcg inhalation DAILY fluticasone propionate 50 mcg/actuation 1 spray intranasal QAM gabapentin 300 mg PO TID ibuprofen 600 mg PO Q8H PRN ibuprofen 800 mg PO Q8H levonorgestrel (Mirena) 20 mcg intrauterine DAILY lidocaine 5% 1 patch topical QAM lidocaine-prilocaine 2.5-2.5 % 1 appl topical ONCE loperamide 2 mg PO Q4-6H PRN montelukast 10 mg PO QPM montelukast 10 mg PO BEDTIME pantoprazole 40 mg PO DAILY propranolol 10 mg PO BID sertraline 75 mg PO DAILY ustekinumab (Stelara) 90 mg subcut Q8W valacyclovir 1,000 mg PO DAILY zolpidem (Ambien) 10 mg PO BEDTIME Do you need a note to return to daycare/school/sports/work: No HPI HPI Sleep Study Follow Up: Details: 48 YEARS OLD FEMALE GROSSLY OBESE WITH DIAGNOSIS OF OBSTRUCTIVE SLEEP APNEA, AND BRONCHIAL ASTHMA/ALLERGIC RHINITIS, COMES FOR FOLLOW-UP AFTER 4 MONTHS. SHE IS USING CPAP REGULARLY AND SLEEPS MUCH BETTER. SHE HAS MILD IRRITATION OF THE SKIN OF HER CHEEKS BUT OTHERWISE TOLERATES THE CPAP WELL. BREATHING HAS BEEN STABLE, WITH INTERMITTENT NASAL CONGESTION , POSTNASAL DISCHARGE AND COUGH. SHE USES FLOVENT ONLY NEEDED. MOSTLY THE MONTELUKAST AND FEXOFENADINE OR CONTROLLING HER NASAL CONGESTION. [facility] Medical History COVID Somnolence, daytime TANA (obstructive sleep apnea) Allergic rhinitis Bronchial asthma Trigger finger Dysuria Obesity, morbid, BMI 40.0-49.9 Encounter for Papanicolaou smear for cervical cancer screening Asthma Insomnia Crohn's disease Surgical History Hx of hand surgery History of carpal tunnel surgery Hx of laparoscopic gastric banding Hx of breast reduction, elective Family History Father HIV (human immunodeficiency virus infection) Mother Hypertension Maternal Grandmother Diabetes mellitus Maternal Grandfather Hypertension Lymphoma Paternal Grandfather No problems noted. 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/ Gender identity: Female Female Reproductive History Menstrual Age of Menarche: 13 Review of Systems Const All systems reviewed & are unremarkable except as noted in HPI and below Eyes Reports no additional complaints ENT Reports nasal congestion (MILD OFF AND ON) Card Denies chest pain, Denies irregular heart rhythm and Denies leg edema Resp Reports as per HPI GI Reports no additional complaints and Reports other (BEING TREATED FOR CROHN'S DISEASE) Reports no additional complaints Musc Reports no additional complaints Skin/Breast Reports system reviewed and no additional complaints, except as documented Neuro Reports no additional complaints Psych Reports no additional complaints and Reports depression (MILD DEPRESSION BEING TREATED WITH SERTRALINE) Endo Reports no additional complaints Physical Exam Vital Signs: Last Vital Signs Pulse 72 10/18/23 09:55 BP 94/60 10/18/23 09:55 Pulse Ox 98 10/18/23 09:55 Oxygen Delivery Method Room Air 10/18/23 09:55 BMI result Body Mass Index 41.7 Const General: healthy appearing (EXCEPT FOR BEING OVERWEIGHT), comfortable, no acute distress, alert and awake Orientation/consciousness: patient oriented x3 HEENT Head: Yes normal to inspection General nose exam: No nasal polyps present and No nasal discharge present Face and sinus: Yes sinuses nontender Mouth: oropharynx normal Throat: No posterior oropharynx normal (NARROW AND CROWDED, MALLAMPATI CLASS 3) Eyes General: appearance normal, both eyes and all related structures Neck Neck: Yes normal visual inspection, Yes no lymphadenopathy, Yes trachea midline and Yes no JVD Thyroid: Thyroid normal Chest Chest palpation & inspection: normal inspection of the chest, normal palpation of entire chest wall and no tenderness Resp Effort & Inspection: normal respiratory effort and other (BREATH SOUNDS ARE DIMINISHED OVER THE BASILAR AREAS BECAUSE OF HER OBESITY) Auscultation: clear to auscultation bilaterally, no crackles, no rhonchi and no wheezes Cardio Palpation: normal PMI Rate: regular rate Rhythm: regular rhythm Heart sounds: no gallops and no murmurs Peripheral pulses: Peripheral pulses 2+ throughout GI Palpation (GI): Soft to palpation, nontender, No hepatosplenomegaly present and no masses Auscultation: normal bowel sounds Back/Spine/Pelvis Thoracic/Lumbar Spine: thoracic and lumbar spine normal to inspection Skin General skin exam: no rashes or lesions noted Neuro General: patient oriented x3 and no focal motor deficits Cranial nerves: Yes CN's II-XII intact bilaterally Extrem General: Yes normal to inspection, Yes no clubbing, cyanosis or edema and Yes no calf tenderness Psych Appearance: grossly abnormal and poorly kempt Speech and movement: Normal speech and movement present Results Reviewed Results Reviewed: COMPLIANCE REPORT FOR THE LAST 30 NIGHTS IS REVIEWED. SHE HAS USED 30/30 NIGHTS, 100%. AVERAGE. USAGE PER NIGHT 5 HOURS 50 MINUTES PRESSURE USED 10-12 CM. .NO SIGNIFICANT AIR LEAK RESIDUAL AHI 1.5 Assessment & Plan Assessment & Plan (1) Obesity, morbid, BMI 40.0-49.9: Comment: Continues to be obese, has not been able to lose much weight except 3 LBs since last visit Code(s): E66.01 - Morbid (severe) obesity due to excess calories Category: Medical Plan: Encouraged to keep on losing weight even if it is by a few lb per month. (2) TANA (obstructive sleep apnea): Comment: She is known case of obstructive sleep apnea, mild, which remains symptomatic in spite of . Conservative measures She has done very well with the CPAP therapy . She reports very little snoring and claims that she sleeps well. Now denies any daytime sleepiness. Compliance is good. Code(s): G47.33 - Obstructive sleep apnea (adult) (pediatric) Category: Medical Plan: .Commended for good compliance Continue to use the CPAP regularly every night. (3) Allergic rhinitis: Comment: SHE HAS MILD INTERMITTENT CHRONIC ALLERGIC RHINITIS, RELATIVELY CONTROLLED WITH THE USE OF MONTELUKAST 10 MG A DAY AND FEXOFENADINE 180 MG NEEDED. Code(s): J30.9 - Allergic rhinitis, unspecified Category: Medical Plan: ADVISED TO CONTINUE MONTELUKAST 10 MG DAILY AND USE FEXOFENADINE ONLY NEEDED (4) Bronchial asthma: Comment: PATIENT DOES HAVE LONGSTANDING HISTORY OF BRONCHIAL ASTHMA. IT HAS BEEN MILD, INTERMITTENT , AND CURRENTLY WELL CONTROLLED. Code(s): J45.909 - Unspecified asthma, uncomplicated Category: Medical Plan: MONTELUKAST 10 MG DAILY FLOVENT-1102 PUFFS B.I.D., START USING IF SYMPTOMS RETURN SUCH COUGH AND WHEEZING. ALBUTEROL HFA 2 PUFFS Q 6 HOURS P.R.N. Medications: New montelukast 10 mg PO BEDTIME 30 days 30 tabs 5RF ALL.RHINITIS Changed From fluticasone propionate 110 mcg/actuation (Flovent HFA) 110 mcg inhalation DAILY To fluticasone propionate 110 mcg/actuation 110 mcg inhalation BID 30 days 12 grams 5RF WHEEZING AND SOB. Coding Level of Care Code Est Pt Level 3 (25464) Diagnoses Obesity, morbid, BMI 40.0-49.9 E66.01 TANA (obstructive sleep apnea) G47.33 Allergic rhinitis J30.9 Bronchial asthma J45.909
== END 2023-10-18 10:08 | disposition home or self-care (01) ==
PROVIDERS: PCP Internal Medicine; Referring Provider Internal Medicine; Visit Provider Internal Medicine
DX: E66.01 Morbid (severe) obesity due to excess calories (principal); G47.33 Obstructive sleep apnea (adult) (pediatric); J30.9 Allergic rhinitis, unspecified; J45.909 Unspecified asthma, uncomplicated
CPT/HCPCS: 99213

== ENCOUNTER → 2023-10-18 09:46 | Outpatient (BNVA) | payer MEDICAID, SELFPAY | PROVIDERS: PCP Internal Medicine; Visit Provider Internal Medicine | DX: J45.909 Unspecified asthma, uncomplicated (principal); G47.33 Obstructive sleep apnea (adult) (pediatric); E66.01 Morbid (severe) obesity due to excess calories; Z68.41 Body mass index [BMI] 40.0-44.9, adult; Z99.89 Dependence on other enabling machines and devices | CPT/HCPCS: 99212 ==

== ENCOUNTER 2023-11-16 13:57 | Outpatient (AMB) | payer MEDICAID, SELFPAY ==
[2023-11-16 14:05] VITALS: BP 120/67; PULSE 74; O2SAT 98; BMI 40.9
--- NOTE | 2023-11-16 14:07 | A.OFFVIS_ITS ---
Vital Signs 11/16/23 14:05 11/16/23 15:05 11/16/23 15:20 Height 5 ft 8 in Weight 269 lb BMI 40.9 BP 120/67 108/65 109/70 Blood Pressure Location Rt brachial Rt brachial Rt brachial Position Sitting Sitting Sitting Pulse 74 Pulse Source Pulse Oximeter Pulse Oximetry (%) 98 Oxygen Delivery Method Room Air Comment Pre Qutenza 15 mins on Qutenza 30 mins after Qutenza Intake Visit Reasons: QUTENZA Allergies ciprofloxacin [From CIPRO] Allergy (Severe, Verified 10/18/23 10:06) GI PAIN vancomycin Allergy (Severe, Verified 10/18/23 10:06) Anaphylaxis HPI Comments Details: Windy presents back to the office today for her 3rd topical capsaicin application for bilateral peripheral neuropathy Patient applied EMLA cream prior to the appointment per instructions She denies any changes in her neuropathy, diagnoses, medications or allergies s carley last visit Denies any injuries, wounds, lesions, ulcers or abrasions to either feet Continues with midline axial back pain, found relief with chiropractor in past. Would like a referral to attempt manual manipulation again. Prior: Patient presents back to the office today for her 2nd topical capsaicin application for bilateral peripheral neuropathy Patient applied EMLA cream prior to the appointment per instructions She denies any changes in her neuropathy, diagnoses, medications or allergies since last visit Denies any injuries, wounds, lesions, ulcers or abrasions to either feet Prior: Windy presents to the office today for 1st Qutenza topical application for bilateral peripheral neuropathy. She applied EMLA cream at home per instructions. Patient denies any changes to her painful bilateral peripheral neuropathy since last visit. Denies new meds, allergies or diagnoses. Patient denies any recent injuries or wounds to her feet. She has started PT for her back, is taking motrin, muscle relaxers and gabapentin with improvement in her pain but not sustained, pain returns when the medications wear off. Patient is holding off on any injections until she completed PT. Prior: Windy is a very pleasant 47-year-old female who presented to the office today for evaluation and management of her left foot pain. Patient endorses left foot pain for more than 7 years without inciting injury. Patient states that she has been told she has plantar fasciitis and also peripheral neuropathy. She is not diabetic. She has been under treatment of Podiatry where she has received cortisone injections in both feet that provided her minimal relief therefore her manufacturing engineer assembly stated he will not be doing injections moving forward. Patient has pain rated as 5/10 today, aching and burning to both feet though she reports the left foot is worse than the right. She says the burning aching pain in her feet starts on the bottom and will radiate up into her ankles and lower calves. She says it feels like she is walking on bubbles. Patient also complaining of bilateral lower back pain without radiation into her buttocks thighs or lower extremities. This pain is also described as aching. Patient denies red flag symptoms including new loss of bowel, bladder or saddle anesthesia. Patient has not attempted physical therapy for her pain. She is currently taking Tylenol and gabapentin with minimal relief. She had a recent MRI of her lower back, results as per below. In terms of muscle damage condition is described as sharp, throbbing, pinching and burning. The pain is negatively impacting the patient's normal sleep, normal activities, normal function and overall mood. [facility] Medical History COVID Somnolence, daytime TANA (obstructive sleep apnea) Allergic rhinitis Bronchial asthma Trigger finger Dysuria Obesity, morbid, BMI 40.0-49.9 Encounter for Papanicolaou smear for cervical cancer screening Asthma Insomnia Crohn's disease Surgical History Hx of hand surgery History of carpal tunnel surgery Hx of laparoscopic gastric banding Hx of breast reduction, elective Family History Father HIV (human immunodeficiency virus infection) Mother Hypertension Maternal Grandmother Diabetes mellitus Maternal Grandfather Hypertension Lymphoma Paternal Grandfather No problems noted. 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 Answers questions appropriately. Fully engaged in examination. Skin: warm, dry, intact. Feet exposed, no wounds, rashes or breaks in skin noted. Light touch sensation intact bilaterally. HEENT: Normocephalic. Hearing intact. Cardiac: External chest normal in appearance. Respiratory: No cough, audible wheezing or stridor. Abdomen: without gross distension. MS: No obvious swelling or deformities. Able to transition from sit to stand unassisted. Ambulates with bilaterally normal heel strike and toe off Neurological: Oriented to person, place, time and situation. Thought process intact. Psychiatric: Appropriate mood and affect. Good judgment and insight. Office Meds capsaicin-skin cleanser 8 % topical kit Performing Provider: Lisa Mejia APRN, CNP Performing Location: [facility] Administered by: Lisa Mejia APRN, CNP on 11/16/23 17:09 Dose Route Admin Location Dispensed Lot Number Expiration Date [facility] [employer] 4 ea topical 4 ea [id number] 10/23/25 82391-412-17 [employer] Comments: Patient applied topical EMLA cream to both feet prior to arrival for her scheduled appointment. Feet exposed, no wounds, rashes or breaks in skin noted. Light touch sensation intact bilaterally. Four single use topical patches (179mg capsaicin) divided between feet, 2 patches per foot, wrapped and secured per package instructions. Patient monitored throughout the procedure with BP checks every 15 minutes. She tolerated the 30 minute application well. Assessment & Plan Assessment & Plan (1) Peripheral neuropathy: Code(s): G62.9 - Polyneuropathy, unspecified Category: Medical Plan Patient presented to the office today for 2nd Qutenza topical application for bilateral peripheral neuropathy. Qutenza application as per above. Cleansing gel applied prior to discharge, patient given cleansing gel for home use if needed. Patient tolerated procedure well, discharged home with no reported untoward effects. Ambulated out of the department with steady gait. She will speak with her insurance company to discuss if minimal manipulation by chiropractor is covered under her insurance. If so, she will call the office with a provider who takes her insurance and referral will be sent. All questions and concerns were answered. Patient will follow up in the office as planned for next Qutenza application, sooner if needed. Orders: Orders AMB Capsaicin Patch - Practice Supplied Today G62.9 - Polyneuropathy, unspecified Medications: New capsaicin-skin cleanser 8 % 4 ea topical ONCE 1 ea 0RF G62.9 - Polyneuropathy, unspecified Coding Level of Care Code Est Pt Level 4 (05521) Diagnoses Peripheral neuropathy G62.9
[2023-11-16 15:05] VITALS: BP 108/65
[2023-11-16 15:20] VITALS: BP 109/70
== END 2023-11-16 15:29 | disposition home or self-care (01) ==
PROVIDERS: PCP Internal Medicine; Visit Provider Registered Nurse Emergency
DX: G62.9 Polyneuropathy, unspecified (principal)
CPT/HCPCS: 17999; 99214

== ENCOUNTER → 2023-11-16 13:57 | Outpatient (BNVA) | payer MEDICAID, SELFPAY | PROVIDERS: PCP Internal Medicine; Visit Provider Registered Nurse Emergency | DX: G62.9 Polyneuropathy, unspecified (principal) | CPT/HCPCS: 17999; 99212; J7336 ==

== ENCOUNTER 2023-11-23 12:56 | Outpatient (REF) | payer MEDICAID, SELFPAY | END 2023-11-23 12:57 | disposition home or self-care (01) | LOC: HO.MAMMO 12:56 | PROVIDERS: PCP Internal Medicine; Visit Provider Internal Medicine | DX: Z13.89 Encounter for screening for other disorder (principal) ==

== ENCOUNTER 2023-12-01 14:11 | Outpatient (AMB) | payer MEDICAID, SELFPAY ==
[2023-12-01 14:21] VITALS: BP 90/62; PULSE 79; BMI 41.3
--- NOTE | 2023-12-01 14:21 | A.OFFVIS_ITS ---
Vital Signs 12/01/23 14:21 Height 5 ft 8 in Weight 271 lb 9.752 oz BMI 41.3 BP 90/62 Blood Pressure Location Lt brachial Position Sitting Pulse 79 Pulse Source Pulse Oximeter Intake Visit Reasons: 6 month follow up Box Stacker Required: No Allergies ciprofloxacin [From CIPRO] Allergy (Severe, Verified 10/18/23 10:06) GI PAIN vancomycin Allergy (Severe, Verified 10/18/23 10:06) Anaphylaxis Medication List - Last Reconciled 12/01/23 by FE Mcmahan albuterol sulfate 2.5 mg inhalation QID PRN albuterol sulfate 90 mcg/actuation (ProAir HFA) 2 puffs inhalation Q6H PRN baclofen 20 mg PO TID djmmhacoye-ptegtlrudibnd-pwze 50-325-40 mg 1 tab PO Q4H calcium carbonate-vitamin D3 600 mg-10 mcg (400 unit) 1 tab PO BID clonazepam 0.5 mg PO DAILY PRN cyclobenzaprine 10 mg PO TID PRN dicyclomine 20 mg PO TID fexofenadine (Amada Allergy) 180 mg PO DAILY fluconazole 150 mg PO Q3D PRN fluticasone propionate 50 mcg/actuation 1 spray intranasal QAM fluticasone propionate 110 mcg/actuation 110 mcg inhalation BID 30 days gabapentin 300 mg PO TID levonorgestrel (Mirena) 20 mcg intrauterine DAILY lidocaine-prilocaine 2.5-2.5 % 1 appl topical ONCE montelukast 10 mg PO BEDTIME 30 days pantoprazole 40 mg PO DAILY propranolol 10 mg PO BID semaglutide (weight loss) (Wegovy) 0.5 mg subcut QWEEK sertraline 75 mg PO DAILY ustekinumab (Stelara) 90 mg subcut Q8W zolpidem (Ambien) 10 mg PO BEDTIME HPI HPI 6 month follow up: Details: Windy is a 48-year-old male past medical history of morbid obesity, sleep apnea, palpitations, brief SVE on Holter monitor who now presents for follow-up. Today she reports that she continues to notice periodic brief heart palpitations where her heart is going fast for seconds to at most a minute and then goes back to normal. This occurs about once a week with no pattern. No palpitations greater than a minute. No associated symptoms beyond palpitation. She continues on low-dose propranolol which she is on 4 migraine headaches and states it has helped. She has been having low blood pressure readings and does have some lightheadedness at times. No presyncope, syncope, falls. No shortn ess of breath, chest discomfort, PND, orthopnea or edema. She is taking her meds as directed. She does only light physical activity at home. She is trying to get disability for her fibromyalgia. [facility] Medical History COVID Somnolence, daytime TANA (obstructive sleep apnea) Allergic rhinitis Bronchial asthma Trigger finger Dysuria Obesity, morbid, BMI 40.0-49.9 Encounter for Papanicolaou smear for cervical cancer screening Asthma Insomnia Crohn's disease Surgical History Hx of hand surgery History of carpal tunnel surgery Hx of laparoscopic gastric banding Hx of breast reduction, elective Family History Father HIV (human immunodeficiency virus infection) Mother Hypertension Maternal Grandmother Diabetes mellitus Maternal Grandfather Hypertension Lymphoma Paternal Grandfather No problems noted. 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/ Gender identity: Female Female Reproductive History Menstrual Age of Menarche: 13 Review of Systems Const All systems reviewed & are unremarkable except as noted in HPI and below ENT Reports dizziness Card Details: palpitations - brief to 1 min Denies chest pain, Denies chest pain at rest, Denies chest pain with activity, Denies rapid heart rate, Denies pedal edema, Denies edema, Denies leg edema, Denies lightheadedness, Denies palpitations, Denies dyspnea, Denies dyspnea on exertion and Denies orthopnea Resp Denies cough, Denies dyspnea and Denies dyspnea on exertion GI Denies hematochezia and Denies change in stool character Musc Denies abnormal gait, Denies limited range of motion, Denies muscle cramps, Denies muscle weakness, Denies numbness, Denies radiating pain into limb, Denies stiffness and Denies tingling Neuro Denies abnormal gait, Reports dizziness, Denies numbness and Denies tingling Endo Denies palpitations Physical Exam Vital Signs: Last Vital Signs Pulse 79 12/01/23 14:21 BP 90/62 12/01/23 14:21 BMI result Body Mass Index 41.3 General: awake, alert, oriented. Answers questions appropriately. Fully engaged in examination. Skin: warm, dry, intact. Feet exposed, no wounds, rashes or breaks in skin noted. Light touch sensation intact bilaterally. HEENT: Normocephalic. Hearing intact. Cardiac: External chest normal in appearance. Respiratory: No cough, audible wheezing or stridor. Abdomen: without gross distension. MS: No obvious swelling or deformities. Able to transition from sit to stand unassisted. Ambulates with bilaterally normal heel strike and toe off Neurological: Oriented to person, place, time and situation. Thought process intact. Psychiatric: Appropriate mood and affect. Good judgment and insight. Const General: cooperative, healthy appearing, comfortable and no acute distress Orientation/consciousness: patient oriented x3 Neck Neck: Yes normal visual inspection Resp Effort & Inspection: normal respiratory effort Auscultation: clear to auscultation bilaterally, no crackles, no rales, no rhonchi and no wheezes Cardio Jugular venous distension: no JVD Rate: regular rate Rhythm: regular rhythm Heart sounds: S1 normal heart sound present, S2 normal heart sound present, no murmurs and no rubs Neuro General: patient oriented x3 Extrem General: Yes normal to inspection and No no pedal edema Psych Appearance: grossly normal Mental Status: mental status grossly normal Speech and movement: Normal speech and movement present Assessment & Plan Assessment & Plan (1) Heart palpitations: Code(s): R00.2 - Palpitations Category: Medical Plan: Reports of heart palpitations, fast heart rates. Description of symptoms sounds like supraventricular tachycardia. She did undergo a Holter monitor on 05/16/2023 which showed sinus rhythm, average heart rate 77, heart rate range 55 to 134, rare brief SVE runs. Echocardiogram done 05/16/2023 showed EF 65%, normal valves, left atrium mildly dilated. No regional wall motion abnormality. On last visit she reported an improvement questions after starting propranolol low-dose for her migraine headaches. Today she reports that she does get some breakthrough palpitations no more than 1 minute in duration. She has stopped all caffeinated beverages. She maintains good hydration. Her blood pressure does run low and she has some lightheadedness at times. Unable to further titrate propranolol. Instructed on good hydration, adding salt to her diet, using caution with sitting to stand. If palpitations are prolonged she can try vagal maneuvers. Emergency care if needed for sustained rapid heart palpitations. No med changes at this time. Cardiology office visit 1 year, sooner if needed. (2) PAC (premature atrial contraction): Code(s): I49.1 - Atrial premature depolarization Category: Medical Plan: Short SVE run seen on Holter monitor. (3) Obesity, morbid, BMI 40.0-49.9: Comment: Continues to be obese, has not been able to lose much weight except 3 LBs since last visit Code(s): E66.01 - Morbid (severe) obesity due to excess calories Category: Medical Plan: Patient morbidly obese. Weight is down 8 lb since her last visit in May. Plan Time spent on chart review, documentation, interview and assessment Coding Level of Care Code Tele Est Pt Level 3 (38053) Diagnoses Heart palpitations R00.2 PAC (premature atrial contraction) I49.1 Obesity, morbid, BMI 40.0-49.9 E66.01 Time Spent (min) 24
== END 2023-12-01 14:47 | disposition home or self-care (01) ==
PROVIDERS: PCP Internal Medicine; Visit Provider Nurse Practitioner Family
DX: R00.2 Palpitations (principal); I49.1 Atrial premature depolarization; E66.01 Morbid (severe) obesity due to excess calories
CPT/HCPCS: 99213

== ENCOUNTER → 2023-12-01 14:11 | Outpatient (BNVA) | payer MEDICAID, SELFPAY | PROVIDERS: PCP Internal Medicine; Visit Provider Nurse Practitioner Family ==

== ENCOUNTER 2024-01-25 13:23 | Outpatient (AMB) | payer MEDICAID, SELFPAY ==
--- NOTE | 2024-01-25 13:26 | A.OFFVIS_ITS ---
Vital Signs 01/25/24 13:35 Height 5 ft 8 in Weight 271 lb 9 oz BMI 41.3 Intake Visit Reasons: Inj- B/L knee inj, last inj 06/20/23 Intake Note: Windy is a 48 yo female who presents today for bilateral knee injections. Patient states her last set of injections done 06/20/23 provided relief and she would like to repeat these today. Allergies ciprofloxacin [From CIPRO] Allergy (Severe, Verified 01/25/24 13:36) GI PAIN vancomycin Allergy (Severe, Verified 01/25/24 13:36) Anaphylaxis Medication List - Last Reconciled 01/25/24 by Juanita Hannon PA-C albuterol sulfate 2.5 mg inhalation QID PRN albuterol sulfate 90 mcg/actuation (ProAir HFA) 2 puffs inhalation Q6H PRN baclofen 20 mg PO TID beqqqkkzur-ggeaceuyswkuk-vkzb 50-325-40 mg 1 tab PO Q4H calcium carbonate-vitamin D3 600 mg-10 mcg (400 unit) 1 tab PO BID clonazepam 0.5 mg PO DAILY PRN cyclobenzaprine 10 mg PO TID PRN dicyclomine 20 mg PO TID fexofenadine (Amada Allergy) 180 mg PO DAILY fluconazole 150 mg PO Q3D PRN fluticasone propionate 50 mcg/actuation 1 spray intranasal QAM fluticasone propionate 110 mcg/actuation 110 mcg inhalation BID 30 days gabapentin 300 mg PO TID levonorgestrel (Mirena) 20 mcg intrauterine DAILY lidocaine-prilocaine 2.5-2.5 % 1 appl topical ONCE montelukast 10 mg PO BEDTIME 30 days pantoprazole 40 mg PO DAILY propranolol 10 mg PO BID semaglutide (weight loss) (Wegovy) 0.5 mg subcut QWEEK sertraline 75 mg PO DAILY ustekinumab (Stelara) 90 mg subcut Q8W zolpidem (Ambien) 10 mg PO BEDTIME HPI HPI Inj- B/L knee inj, last inj 06/20/23: Details: 48-year-old female who returns to the office today for a follow-up of bilateral knee pain. She had her last injection on 06/20/23 that provided her relief for 7 months. She would like to repeat the injection. PFSH Medical History COVID Somnolence, daytime TANA (obstructive sleep apnea) Allergic rhinitis Bronchial asthma Trigger finger Dysuria Obesity, morbid, BMI 40.0-49.9 Encounter for Papanicolaou smear for cervical cancer screening Asthma Insomnia Crohn's disease Surgical History Hx of hand surgery History of carpal tunnel surgery Hx of laparoscopic gastric banding Hx of breast reduction, elective Family History Father HIV (human immunodeficiency virus infection) Mother Hypertension Maternal Grandmother Diabetes mellitus Maternal Grandfather Hypertension Lymphoma Paternal Grandfather No problems noted. 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 Tenderness along the medial and lateral joint line. Full ROM with crepitus. Negative Ivan?s. No ligamentous laxity. NVI. Office Procedures Joint Injection/Aspiration Joint Injection/Aspiration Primary Site: right knee Secondary Site: left knee Prep: site was prepped using aseptic technique, ethochloride spray was applied and injection warnings given Injected: 80 mg of, DepoMedrol, with 8 mL of, 1% plain lidocaine and in the joint Approach Used: anterolateral Procedure: The patient tolerated the procedure well and there was some relief with the local anesthesia Coding 75799 - Glenohumeral/Tronchanteric Bursa/Intraarticular Procedure code (CPT) selection complete Assessment & Plan Assessment & Plan (1) Patellofemoral arthritis of right knee: Code(s): M17.11 - Unilateral primary osteoarthritis, right knee Category: Medical Plan We discussed options today, which include steroid injection. The patient did consent to move forward with the bilateral knee injection, which was tolerated well. I recommended rest, ice, and elevation and OTC anti-inflammatories as needed for discomfort. If symptoms persist or worsen over the next 6-8 weeks, patient will contact the office, otherwise follow-up as needed. Patient Instructions: Scribed for Juanita Hannon PA-C, by Abelino Acosta medical staff credentialing coordinator, on 01/25/2024 at 1:30 PM EST.? I, Juanita Hannon PA-C, have personally reviewed and agree with the information entered by the scribe. Coding Level of Care Code Est Pt Level 3 (24832) Complex EM visit Add On G2211 Diagnoses Patellofemoral arthritis of right knee M17.11 CPT Codes Coding - Joint 7: 85081 - Glenohumeral/Tronchanteric Bursa/Intraarticular ([id number])
[2024-01-25 13:35] VITALS: BMI 41.3
== END 2024-01-25 13:49 | disposition home or self-care (01) ==
PROVIDERS: PCP Internal Medicine; Visit Provider Physician Assistant
DX: M17.11 Unilateral primary osteoarthritis, right knee (principal)
CPT/HCPCS: 20610

== ENCOUNTER → 2024-01-25 13:23 | Outpatient (BNVA) | payer MEDICAID, SELFPAY | PROVIDERS: PCP Internal Medicine; Visit Provider Physician Assistant | DX: M17.11 Unilateral primary osteoarthritis, right knee (principal) | CPT/HCPCS: 20610; J1010; J2003 ==

== ENCOUNTER 2024-04-04 08:38 | Outpatient (REF) | payer MEDICAID, SELFPAY ==
[2024-04-04 09:00] LABS: MANUAL DIFF FLAG NO
[2024-04-04 10:06] LABS: Basophils Percent Auto 0.4 % (0-2); Eosinophils Absolute Auto 0.4 X10*3/uL (0.0-0.4); Eosinophils Percent Auto 6.7 % (0-4); Hematocrit 40.1 % (37.0-47.0); Hemoglobin 12.6 g/dl (12.0-16.0); Imm Gran Abs Auto 0.02 X10*3/uL (0.00-0.03); Imm Gran Pct Auto 0.4 % (0.0-0.4); Lymphocytes Absolute Auto 1.6 X10*3/uL (1.2-4.9); Mean Corpuscular HGB Conc 31.4 g/dl (31.0-35.0); Mean Corpuscular Hemoglobin 27.9 pg (27.0-33.0); Mean Corpuscular Volume 88.9 fL (80.0-98.0); Mean Platelet Volume 11.3 fL (9.4-12.3); Monocytes Absolute Auto 0.5 X10*3/uL (0.1-1.2); Monocytes Percent Auto 8.7 % (2-11); Neutrophils Absolute Auto 2.8 x10*3/uL (2.0-8.3); Neutrophils Percent Auto 52.8 % (45-73); Platelet Count 224 X10*3/uL (160-400); Red Blood Count 4.51 X10*6/uL (4.20-5.50); Red Cell Distribution Width 13.2 % (11.0-16.0); White Blood Count 5.2 X10*3/uL (4.8-10.8)
[2024-04-04 10:56] LABS: Alanine Aminotransferase 34 U/L (0-31); Albumin Level 3.7 g/dL (3.5-5.0); Alkaline Phosphatase 71 U/L (39-117); Aspartate Amino Transferase 22 U/L (5-31); Bilirubin Direct < 0.2 mg/dL (0.0-0.5); Bilirubin Total 0.2 mg/dL (0.0-1.0); Total Protein 7.2 g/dL (6.5-8.0)
== END 2024-04-04 08:39 | disposition home or self-care (01) ==
LOC: HO.LAB 08:38
PROVIDERS: PCP Internal Medicine; Visit Provider Internal Medicine
DX: K50.80 Crohn's disease of both small and large intestine without complications (principal); Z51.81 Encounter for therapeutic drug level monitoring
CPT/HCPCS: 36415; 80076; 80299; 82542; 85025

== ENCOUNTER 2024-05-01 13:24 | Outpatient (AMB) | payer MEDICAID, SELFPAY ==
--- NOTE | 2024-05-01 13:38 | MHC.OFFVIS ---
Vital Signs 05/01/24 13:39 Height 5 ft 8 in Weight 266 lb 12.149 oz BMI 40.6 BP 102/64 Blood Pressure Location Lt brachial Position Sitting Pulse 64 Pulse Source Pulse Oximeter Pulse Oximetry (%) 99 Oxygen Delivery Method Room Air Intake Visit Reasons: Obstructive sleep apnea Intake Note: pt is here for follow up and is using her cpap nightly, doing well, she does wake up with a dry mouth Ict Help Desk Officer Required: No Allergies ciprofloxacin [From CIPRO] Allergy (Severe, Verified 05/01/24 14:00) GI PAIN vancomycin Allergy (Severe, Verified 05/01/24 14:00) Anaphylaxis Medication List - Last Reconciled 05/01/24 by Reggie Schmidt MD albuterol sulfate 2.5 mg inhalation QID PRN albuterol sulfate 90 mcg/actuation (ProAir HFA) 2 puffs inhalation Q6H PRN baclofen 20 mg PO TID siqtquprxy-rkwklczhjebkz-fhkz 50-325-40 mg 1 tab PO Q4H calcium carbonate-vitamin D3 600 mg-10 mcg (400 unit) 1 tab PO BID clonazepam 0.5 mg PO DAILY PRN cyclobenzaprine 10 mg PO TID PRN dicyclomine 20 mg PO TID fexofenadine (Amada Allergy) 180 mg PO DAILY fluconazole 150 mg PO Q3D PRN fluticasone propionate 50 mcg/actuation 1 spray intranasal QAM fluticasone propionate 110 mcg/actuation 110 mcg inhalation BID 30 days gabapentin 300 mg PO TID levonorgestrel (Mirena) 20 mcg intrauterine DAILY lidocaine-prilocaine 2.5-2.5 % 1 appl topical ONCE montelukast 10 mg PO BEDTIME 30 days pantoprazole 40 mg PO DAILY propranolol 10 mg PO BID semaglutide (weight loss) (Wegovy) 0.5 mg subcut QWEEK sertraline 75 mg PO DAILY ustekinumab (Stelara) 90 mg subcut Q8W zolpidem (Ambien) 10 mg PO BEDTIME Do you need a note to return to daycare/school/sports/work: No HPI HPI Obstructive sleep apnea: Details: THIS 48 YEARS OLD FEMALE WITH DIAGNOSIS OF GROSS OBESITY AND OBSTRUCTIVE SLEEP APNEA IS HERE FOR 6 MONTHS FOLLOW-UP. SHE IS USING CPAP REGULARLY EVERY NIGHT AND BENEFITTING FROM ITS USE. SHE IS GETTING GOOD SLEEP FOR AT LEAST 6-1/2 HOURS EVERY NIGHT. THERE IS MILD AIR LEAK IF THE FACE MASK SLIPS LITTLE BIT. BREATHING ADAN SHE HAS NO ISSUE. SHE HAS CHRONIC ALLERGIC RHINITIS AND DOES HAVE INTERMITTENT NASAL CONGESTION WHICH IS CONTROLLED WITH MEDS. FAR WEIGHT IS CONCERNED THERE IS NO BIG PROGRESS [facility] Medical History COVID Somnolence, daytime TANA (obstructive sleep apnea) Allergic rhinitis Bronchial asthma Trigger finger Dysuria Obesity, morbid, BMI 40.0-49.9 Encounter for Papanicolaou smear for cervical cancer screening Asthma Insomnia Crohn's disease Surgical History Hx of hand surgery History of carpal tunnel surgery Hx of laparoscopic gastric banding Hx of breast reduction, elective Family History Father HIV (human immunodeficiency virus infection) Mother Hypertension Maternal Grandmother Diabetes mellitus Maternal Grandfather Hypertension Lymphoma Paternal Grandfather No problems noted. 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/ Gender identity: Female Female Reproductive History Menstrual Age of Menarche: 13 Review of Systems Const All systems reviewed & are unremarkable except as noted in HPI and below Eyes Reports no additional complaints ENT Reports nasal congestion (MILD OFF AND ON) Card Denies chest pain, Denies irregular heart rhythm and Denies leg edema Resp Reports as per HPI GI Reports no additional complaints and Reports other (BEING TREATED FOR CROHN'S DISEASE) Reports no additional complaints Musc Reports no additional complaints Skin/Breast Reports system reviewed and no additional complaints, except as documented Neuro Reports no additional complaints Psych Reports no additional complaints and Reports depression (MILD DEPRESSION BEING TREATED WITH SERTRALINE) Endo Reports no additional complaints Physical Exam Vital Signs: Last Vital Signs Pulse 64 05/01/24 13:39 BP 102/64 05/01/24 13:39 Pulse Ox 99 05/01/24 13:39 Oxygen Delivery Method Room Air 05/01/24 13:39 BMI result Body Mass Index 40.6 Const General: healthy appearing (EXCEPT FOR BEING OVERWEIGHT), comfortable, no acute distress, alert and awake Orientation/consciousness: patient oriented x3 HEENT Head: Yes normal to inspection General nose exam: No nasal polyps present and No nasal discharge present Face and sinus: Yes sinuses nontender Mouth: oropharynx normal Throat: No posterior oropharynx normal (NARROW AND CROWDED, MALLAMPATI CLASS 3) Eyes General: appearance normal, both eyes and all related structures Neck Neck: Yes normal visual inspection, Yes no lymphadenopathy, Yes trachea midline and Yes no JVD Thyroid: Thyroid normal Chest Chest palpation & inspection: normal inspection of the chest, normal palpation of entire chest wall and no tenderness Resp Effort & Inspection: normal respiratory effort and other (BREATH SOUNDS ARE DIMINISHED OVER THE BASILAR AREAS BECAUSE OF HER OBESITY) Auscultation: clear to auscultation bilaterally, no crackles, no rhonchi and no wheezes Cardio Palpation: normal PMI Rate: regular rate Rhythm: regular rhythm Heart sounds: no gallops and no murmurs Peripheral pulses: Peripheral pulses 2+ throughout GI Palpation (GI): Soft to palpation, nontender, No hepatosplenomegaly present and no masses Auscultation: normal bowel sounds Back/Spine/Pelvis Thoracic/Lumbar Spine: thoracic and lumbar spine normal to inspection Skin General skin exam: no rashes or lesions noted Neuro General: patient oriented x3 and no focal motor deficits Cranial nerves: Yes CN's II-XII intact bilaterally Extrem General: Yes normal to inspection, Yes no clubbing, cyanosis or edema and Yes no calf tenderness Psych Appearance: grossly abnormal and poorly kempt Speech and movement: Normal speech and movement present Results Reviewed Results Reviewed: COMPLIANCE REPORT FOR THE LAST 30 NIGHTS IS REVIEWED. SHE HAS USED 30/30 NIGHTS., 100% AVERAGE USE IT PER NIGHT 6 HOURS 38 MINUTES. THERE IS SLIGHT AIR LEAK. RESIDUAL AHI ONLY 1.7 Assessment & Plan Assessment & Plan (1) Bronchial asthma: Comment: PATIENT DOES HAVE LONGSTANDING HISTORY OF BRONCHIAL ASTHMA. IT HAS BEEN MILD, INTERMITTENT , AND CURRENTLY WELL CONTROLLED. Code(s): J45.909 - Unspecified asthma, uncomplicated Category: Medical Plan: CONTINUE TO USE ALBUTEROL HFA 2 PUFFS Q 4-6 HOURS P.R.N. (2) Allergic rhinitis: Comment: SHE HAS MILD INTERMITTENT CHRONIC ALLERGIC RHINITIS, RELATIVELY CONTROLLED WITH THE CURRENT REGIMEN. Code(s): J30.9 - Allergic rhinitis, unspecified Category: Medical Plan: CONTINUE USING MONTELUKAST 10 MG DAILY, FEXOFENADINE 180 MG ONCE A DAY P.R.N. AND MAY USE FLONASE 2 SPRAY EACH NOSTRIL ONCE A DAY NEEDED. (3) TANA (obstructive sleep apnea): Comment: She is known case of obstructive sleep apnea, mild but remained symptomatic in spite of Conservative measures. She has done very well since started on CPAPtherapy. Her compliance is very good and she is benefiting. Code(s): G47.33 - Obstructive sleep apnea (adult) (pediatric) Category: Medical Plan: Commended for good compliance and advised to keep on using the CPAP regularly every night. (4) Obesity, morbid, BMI 40.0-49.9: Comment: Continues to be obese, has not been able to lose much weight. Code(s): E66.01 - Morbid (severe) obesity due to excess calories Category: Medical Plan: Discussed about need to lose some weight. Currently she is on Semaglutide ( Wagovy ) therapy and this may help her to lose weight. Coding Level of Care Code Est Pt Level 3 (83475) Diagnoses Bronchial asthma J45.909 Allergic rhinitis J30.9 TANA (obstructive sleep apnea) G47.33 Obesity, morbid, BMI 40.0-49.9 E66.01
[2024-05-01 13:39] VITALS: BP 102/64; PULSE 64; O2SAT 99; BMI 40.6
== END 2024-05-01 13:57 | disposition home or self-care (01) ==
PROVIDERS: PCP Internal Medicine; Visit Provider Internal Medicine
DX: J45.909 Unspecified asthma, uncomplicated (principal); J30.9 Allergic rhinitis, unspecified; G47.33 Obstructive sleep apnea (adult) (pediatric); E66.01 Morbid (severe) obesity due to excess calories
CPT/HCPCS: 99213

== ENCOUNTER → 2024-05-01 13:24 | Outpatient (BNVA) | payer MEDICAID, SELFPAY | PROVIDERS: PCP Internal Medicine; Visit Provider Internal Medicine | DX: J45.909 Unspecified asthma, uncomplicated (principal); G47.33 Obstructive sleep apnea (adult) (pediatric); E66.01 Morbid (severe) obesity due to excess calories; Z68.41 Body mass index [BMI] 40.0-44.9, adult | CPT/HCPCS: 99212 ==

== ENCOUNTER 2024-06-20 13:39 | Outpatient (AMB) | payer MEDICAID, SELFPAY ==
--- NOTE | 2024-06-20 13:42 | MHC.OFFVIS ---
Vital Signs 06/20/24 13:52 Height 5 ft 8 in Weight 266 lb BMI 40.4 Intake Visit Reasons: Inj- B/L knee inj, last inj 01/25/2024 Intake Note: Windy is a 48 year old female who presents today for a bilateral knee injections, last injections on 01/25/2024. Patient reports injection provided her with relief until recently. States her pain has been present for about a month and she would like to repeat injections. Allergies ciprofloxacin [From CIPRO] Allergy (Severe, Verified 06/20/24 13:52) GI PAIN vancomycin Allergy (Severe, Verified 06/20/24 13:52) Anaphylaxis Medication List - Last Reconciled 06/20/24 by Juanita Hannon PA-C albuterol sulfate 2.5 mg inhalation QID PRN albuterol sulfate 90 mcg/actuation (ProAir HFA) 2 puffs inhalation Q6H PRN baclofen 20 mg PO TID znonebszkr-fugqcdboakdeo-miqg 50-325-40 mg 1 tab PO Q4H clonazepam 0.5 mg PO DAILY PRN cyclobenzaprine 10 mg PO TID PRN dicyclomine 20 mg PO TID fexofenadine (Amada Allergy) 180 mg PO DAILY fluconazole 150 mg PO Q3D PRN fluticasone propionate 110 mcg/actuation 110 mcg inhalation BID 30 days gabapentin mg PO 3XD levonorgestrel (Mirena) 20 mcg intrauterine DAILY lidocaine-prilocaine 2.5-2.5 % 1 appl topical ONCE methocarbamol 750 mg PO QID montelukast 10 mg PO BEDTIME 30 days pantoprazole 40 mg PO DAILY propranolol 10 mg PO BID sertraline 75 mg PO DAILY tirzepatide (weight loss) (Zepbound) 2.5 mg subcut QWEEK ustekinumab (Stelara) 90 mg subcut Q8W zolpidem (Ambien) 10 mg PO BEDTIME HPI HPI Inj- B/L knee inj, last inj 01/25/2024: Details: 48-year-old female returns to the office today for bilateral knee pain. Most recent injection was January 25 2024 where she had approximately 2 months of relief. She complains of pain along the anterior portion of the knee. Pain with stairs and bending. [facility] Medical History (Updated 05/01/24 @ 14:09 by Reggie Schmidt MD) COVID Somnolence, daytime TANA (obstructive sleep apnea) Allergic rhinitis Bronchial asthma Trigger finger Dysuria Obesity, morbid, BMI 40.0-49.9 Encounter for Papanicolaou smear for cervical cancer screening Asthma Insomnia Crohn's disease Surgical History (Updated 06/20/24 @ 13:45 by Julienne Rees [facility]) History of removal of laparoscopic gastric banding device Hx of hand surgery History of carpal tunnel surgery Hx of laparoscopic gastric banding Hx of breast reduction, elective Family History Father HIV (human immunodeficiency virus infection) Mother Hypertension Maternal Grandmother Diabetes mellitus Maternal Grandfather Hypertension Lymphoma Paternal Grandfather No problems noted. 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 Tenderness along the medial and lateral joint line. Full ROM with crepitus. Negative Ivan?s. No ligamentous laxity. NVI. Office Procedures AMB Joint Injection/Aspiration Joint Injection/Aspiration Primary Site: right knee Secondary Site: left knee Prep: site was prepped using aseptic technique, ethochloride spray was applied and injection warnings given Injected: 80 mg of, DepoMedrol, with 8 mL of, 1% plain lidocaine and in the joint Approach Used: anterolateral Procedure: The patient tolerated the procedure well and there was some relief with the local anesthesia Coding 62139 - Glenohumeral/Tronchanteric Bursa/Intraarticular Procedure code (CPT) selection complete Assessment & Plan Assessment & Plan (1) Patellofemoral arthritis of right knee: Code(s): M17.11 - Unilateral primary osteoarthritis, right knee Category: Medical Plan We discussed options today, which include steroid injection. The patient did consent to move forward with the bilateral knee injection, which was tolerated well. I recommended rest, ice, and elevation and OTC anti-inflammatories as needed for discomfort. If symptoms persist or worsen over the next 6-8 weeks, patient will contact the office, otherwise follow-up as needed. Coding Level of Care Code Est Pt Level 3 (85737) Complex EM visit Add On G2211 Diagnoses Patellofemoral arthritis of right knee M17.11 CPT Codes Coding - Joint 7: 81856 - Glenohumeral/Tronchanteric Bursa/Intraarticular ([id number])
[2024-06-20 13:52] VITALS: BMI 40.4
--- OUTSIDE RECORDS SUMMARY | 2024-06-20 16:45 | XMS_ITS | Clinical Summary ---
Author Organization [address] [facility] Address [address] [place] [address] Phone Care Team Providers Care Human Resources Clerk Name Role Phone Katrina Sherwood MD Primary Care Provider [phone] Allergies Active Allergy Reactions Criticality Noted Date Comments Ciprofloxacin 06/15/2022 Clindamycin 01/27/2024 Vancomycin 12/01/2021 Medications FLUTICASONE PROPIONATE INHL Inhale into the lungs. Active albuterol sulfate (Proair Digihaler) 90 mcg/actuation aero powdr breath act w/sensor Inhale into the lungs. Active baclofen (LIORESAL) 20 mg tablet Take 1 Tablet by mouth 3 times daily. Active dicyclomine (BENTYL) 10 mg/5 mL syrup Take 10 mL by mouth 4 times daily (before meals and nightly). Active fexofenadine (LUISA) 180 mg tablet Take 1 tablet (180 mg total) by mouth 1 (one) time each day. Active gabapentin (NEURONTIN) 300 mg capsule Take 1 capsule (300 mg total) by mouth 2 (two) times a day. Active meloxicam (Mobic) 15 mg tablet Take 1 tablet (15 mg total) by mouth 1 (one) time each day. Active montelukast (SINGULAIR) 10 mg tablet Take 1 Tablet by mouth at bedtime. Active pantoprazole (PROTONIX) 40 mg EC tablet Take 1 tablet (40 mg total) by mouth 1 (one) time each day. Active sertraline (ZOLOFT) 50 mg tablet Take 1 tablet (50 mg total) by mouth 1 (one) time each day. Active triamcinolone acetonide (KENALOG-40) 40 mg/mL injection Inject 0.5 mL into the articular space once for 1 dose. Active ustekinumab (Stelara) 90 mg/mL syringe Inject 90 mg into the skin daily. Active zolpidem (AMBIEN) 10 mg tablet Take 1 tablet (10 mg total) by mouth at bedtime as needed. Active Encounters Date Type Department Care Team Description 05/10/2024 9:00 AM EST Office Visit Orthopedic Surgery [place] [id number] [phone] Juan Moody DPM Lumbosacral radiculopathy (Primary Dx); Max's neuroma of right foot; Posterior tibial tendinitis of right leg; Plantar fasciitis, right from Last 3 Months Social History Tobacco Use Types Packs/Day Years Used Date Smoking Tobacco: Never Assessed Comments Unknown Sex and Gender Information Value Date Recorded Sex Assigned at Not on file Legal Sex Female 1:24 PM EST Gender Identity Not on file Sexual Orientation Not on file Last Filed Vital Signs Vital Sign Reading Time Taken Comments Blood Pressure - - Pulse - - Temperature - - Respiratory Rate - - Oxygen Saturation - - Inhaled Oxygen Concentration - - Weight 127 kg (280 lb) 05/10/2024 9:04 AM EST Height 165.1 cm (5' 5 ) 05/10/2024 9:04 AM EST Body Mass Index 46.59 05/10/2024 9:04 AM EST Plan of Treatment Upcoming Encounters Date Type Department Care Team (Late st Contact Info) Description 07/09/2024 8:30 AM EDT Office Visit Orthopedic Surgery [facility] [address] [phone] Juan Moody DPM [address] [id number] Health Maintenance Due Date Last Done Comments Breast Cancer Screening 1975 Colorectal Cancer Screening: Colonoscopy 03/23/2022 HIV Screening 03/23/2022 Hepatitis C Screening 03/23/2022 Social Influencers of Health Screening 03/23/2022 COVID-19 Vaccine ( season) 2023 08/19/2020, 07/11/2020 Influenza Vaccine (#1) 2023 , 05/07/2021, 12/24/2020, Additional history exists Depression Screening 10/04/2024 10/05/2023 Cervical Cancer Screening: HPV 11/09/2026 11/09/2021 Cholesterol Screening (Lipid Panel) 08/07/2027 08/06/2022, 08/06/2022 DTaP,Tdap,and Td Vaccines (4 - Td or Tdap) 04/26/2033 04/26/2023, 07/13/2012, 12/17/1999 Hepatitis B Vaccines Completed 01/08/2010, 07/08/2009, 06/05/2009 Pneumococcal Vaccine: Pediatrics (0 to 5 Years) and At-Risk Patients (6 to 64 Years) Completed 10/05/2023, 07/09/2013, 07/11/2006, Additional history exists HIB Vaccines Aged Out No longer eligi ble based on patient's age to complete this topic HPV Vaccines Aged Out No longer eligi ble based on patient's age to complete this topic Hepatitis A Vaccines Aged Out No long er eligible based on patient's age to complete this topic IPV Vaccines Aged Out No longer eligi ble based on patient's age to complete this topic MMR Vaccines Aged Out No longer eligi ble based on patient's age to complete this topic Meningococcal ACWY Vaccine Aged Out N o longer eligible based on patient's age to complete this topic Meningococcal B Vacine Aged Out No lo nger eligible based on patient's age to complete this topic RSV Immunization Patients Under 20 months Aged Out No longer eligible based on patient's age to complete this topic Varicella Vaccines Aged Out No longer eligible based on patient's age to complete this topic Procedures Procedure Name Priority Date/Time Associated Diagnosis Comments INJECTION TENDON OR LIGAMENT Routine 05/10/2024 9:00 AM EST Plantar fasciitis, right LIPID PANEL Routine 08/06/2022 HM HPV Routine 11/09/2021 from Last 3 Months or Most Recently Relevant to Health Maintenance Results * Injection tendon or ligament (05/10/2024 9:00 AM EST) Narrative Juan Moody DPM - 05/10/2024 9:00 AM EST Juan Moody DPM ? 05/10/2024 12:37 PM Injection tendon or ligament Indications: pain Details: 25 G needle Medications: 0.5 mL lidocaine (PF) 1 %; 40 mg triamcinolone acetonide 40 mg/mL Informed Consent: ??Laterality: ??Right Juan Moody DPM IN CLINIC/BEDSIDE ORDERABLE S Final Result * Lipid panel (08/06/2022) Pathologist [facility] LDL/HDL Ratio 0 Comment:no interpretation, a bstracted Triglycerides 0 mg/dL Comment:no interpretation, a bstracted Cholesterol 0 mg/dL Comment:no interpretation, a bstracted HDL 0 mg/dL Comment:no interpretation, a bstracted LDL Cholesterol 0 mg/dL Comment:no interpretation, a bstracted Blood Venous blood specimen / Unknown Historical Provider LAB BLOOD ORDERABLES Marcelina l Result * Cervical Cancer Screening: HPV (11/09/2021) Pathologist [facility] Cervical Cancer Screening: HPV abstracted Historical Provider HEALTH MAINTENANCE Final Result from Last 3 Months or Most Recently Relevant to Health Maintenance Insurance MEDICAID - [place] Care Teams Human Resources Clerk Relationship Specialty Start Date End Date Macoupin, Katrina, MD [address] [place] [phone] PCP - General Internal Medicine 01/02/14
--- OUTSIDE RECORDS SUMMARY | 2024-06-20 16:46 | XMS_ITS | Encounter Summary ---
Author Organization [employer] Address [address] [place] [address] [address] [place] [address] Care Team Providers Care Fire Behavior Analyst Name Role Phone Ceci Billings MD Primary Care Provide r Reason for Visit * Reason Comments Med Refill Encounter Details Date Type Department Care Team (Late st Contact Info) Description 12/02/2022 Refill [facility] [address] [place] [address] Yaniv Pelaez MD [address] [place] [address] Insomnia, unspecified type Social History Tobacco Use Types Packs/Day Years Used Date Smoking Tobacco: Never Passive Smoke Exposure: Never Smokeless Tobacco: Never Depression Answer Date Recorded Patient Health Questionnaire-9 Score 0 08/06/2022 Depression Answer Date Recorded Patient Health Questionnaire-2 Score 0 08/06/2022 Comments Unknown Sex and Gender Information Value Date Recorded Sex Assigned at Female 02/22/2022 10:16 AM EDT Legal Sex Female 10:16 AM EDT Gender Identity Female 02/22/2022 10:16 AM EDT Sexual Orientation Straight 03/07/2024 6: 04 PM EST documented as of this encounter Plan of Treatment Upcoming Encounters Date Type Department Care Team (Late Contact Info) Description 07/24/2024 11:30 AM EDT Telemedicine [facility] [address] [place] [address] Ceci Billings MD [address] [place], [place] [phone] documented as of this encounter Visit Diagnoses Diagnosis Insomnia, unspecified type documented in this encounter Additional Health Concerns Assessment Noted Time PHQ-9 Depression Total Score: 0 08/07/19 23 9:07 AM EDT documented as of this encounter Care Teams Fire Behavior Analyst Relationship Specialty Start Date End Date Ceci Billings MD [address] [facility] [place] [address] PCP - General Family Medicine 06/02/20 documented as of this encounter
--- OUTSIDE RECORDS SUMMARY | 2024-06-20 16:46 | XMS_ITS | Clinical Summary ---
Author Organization [employer] Address [address] [facility] [address] [place] [address] Care Team Providers Care Training Facilitator Name Role Phone Ceci Billings MD Primary Care Provide r Allergies Active Allergy Reactions Criticality Noted Date Comments Ciprofloxacin 05/26/2010 Other reaction(s): GI upset Other reaction(s): Unknown Clindamycin 10/04/2023 Vancomycin 05/26/2010 Other reaction(s): unspecified Other reaction(s): Unknown Medications fluticasone (Flonase Allergy Relief) 50 MCG/ACT nasal sprayIndications :Influenza-like illness Administer 1 spray into each nostril in the morning. Shake gently. Before first use, prime pump. After use, clean tip and replace cap. 16 g 12 03/30/20 23 Active ibuprofen 800 MG tablet Take 1 tablet (800 mg) by mouth every 8 (eight) hours if needed for mild pain, moderate pain, fever or headaches. 45 tablet 1 03/30/20 23 Active triamcinolone (Kenalog) 0.1 % creamIndications :Contact dermatitis, unspecified contact dermatitis type, unspecified trigger Apply topically if needed in the morning and at bedtime (pain and swelling). 30 g 04/26/19 24 Active fluticasone (Flovent) 110 MCG/ACT inhalerIndicatio ns:Mild persistent asthma without complication Inhale 1 puff in the morning and at bedtime. Rinse mouth with water after use to reduce aftertaste and incidence of candidiasis. Do not swallow. 12 g 11 10/05/19 24 025 Active docusate sodium (Colace) 100 MG capsuleIndicatio ns:Crohn's disease of both small and large intestine without complication (CMS/HCC) Take 1 capsule (100 mg) by mouth 2 times daily. 180 capsule 10/31/19 24 Active albuterol (Ventolin HFA) 108 (90 Base) MCG/ACT inhalerIndicatio ns:Mild persistent asthma without complication INHALE 2 PUFFS BY MOUTH THREE TIMES DAILY NEEDED 18 g 3 03/07/20 24 Active gabapentin (Neurontin) 400 MG capsuleIndicatio ns:Neuropathy Take 1 capsule (400 mg) by mouth 3 times daily. 90 capsule 3 04/24/20 24 025 Active Tirzepatide-Weig ht Management (Zepbound) 2.5 MG/0.5ML solution auto-injectorInd ications:Class 3 severe obesity with serious comorbidity and body mass index (BMI) of 45.0 to 49.9 in adult, unspecified obesity type (CMS/HCC) Inject 0.5 mL (2.5 mg) under the skin 1 (one) time per week. 2 mL 04/24/20 24 Active zolpidem (Ambien) 10 MG tabletIndication s:Insomnia, unspecified type TAKE 1 TABLET BY MOUTH AT BEDTIME 30 tablet 5 04/24/20 24 Active famotidine (Pepcid) 20 MG tabletIndication s:Heartburn Take 1 tablet (20 mg) by mouth 2 times daily. 60 tablet 11 04/24/20 24 025 Active propranolol (Inderal) 20 MG tabletIndication s:Migraine without aura, not refractory TAKE 1 TABLET(20 MG) BY MOUTH EVERY DAY 90 tablet 1 04/24/20 24 Active butalbital-aceta minophen-caffein e 50-325-40 MG tabletIndication s:Migraine without aura, not refractory Take 1 tablet by mouth every 12 (twelve) hours if needed for migraine (max two days per week). 15 tablet 2 04/24/20 24 Active acetaminophen (Tylenol 8 Hour) 650 MG ER tabletIndication s:Lumbar radiculopathy, chronic Take 2 tablets (1,300 mg) by mouth every 8 (eight) hours if needed for mild pain. Do not crush, chew, or split. 40 tablet 12/31/20 24 Active ondansetron (Zofran) 4 MG tabletIndication s:Migraine without aura, not refractory Take 1 tablet (4 mg) by mouth every 8 (eight) hours if needed for nausea or vomiting. 20 tablet 04/24/20 24 Active fexofenadine (Allergy Relief) 180 MG tablet TAKE 1 TABLET BY MOUTH EVERY DAY NEEDED 90 tablet 05/23/19 25 Active methocarbamol (Robaxin) 750 MG tabletIndication s:Fibromyalgia Take 1 tablet (750 mg) by mouth 4 times daily. 40 tablet 2 06/07/19 25 025 Active senna (Senokot) 8.6 MG tabletIndication s:Crohn's disease of both small and large intestine without complication (CMS/HCC) TAKE 2 TABLETS BY MOUTH TWICE DAILY 360 tablet 06/12/19 25 Active senna (Senokot) 8.6 MG tabletIndication s:Crohn's disease of both small and large intestine without complication (CMS/HCC) Take 2 tablets (17.2 mg) by mouth 2 times daily. 120 tablet 09/14/19 24 025 Discontinued fexofenadine (Allergy Relief) 180 MG tablet TAKE 1 TABLET BY MOUTH EVERY DAY NEEDED 90 tablet 10/06/19 24 025 Discontinued baclofen (Lioresal) 20 MG tabletIndication s:Fibromyositis Take 1 tablet (20 mg) by mouth 3 times daily. 90 tablet 02/29/20 24 025 Discontinued Active Problems Problem Noted Date Diagnosed Date Other constipation 10/05/2023 Assessment & Plan (11/04/2023 10:15 AM EDT): Increase water and fiber on diet Patient will call GI office for a f/u appointment I will inquie about PA for hortensia Assessment & Plan (10/05/2023 12:37 PM EDT): Medications had fail to relive constipation she tried senna, miralax, colace, I will prescrib today linema and I ask her to f/u with GI Fibromyalgia 10/05/2023 Assessment & Plan (06/07/2024 3:24 PM EST): Patient reports baclofen is not working for her anymore, I switch her medication to Robaxin 4 times a day Extensive counseling about fibromyalgia condition done and was advised to maintain hydration, regular exercise, treat anxiety/depression Assessment & Plan (10/05/2023 12:38 PM EDT): Patient was educated about multidisciplinary approach for her condition, it was advise cardiovascular exercise, maintain hydration, treat anxiety/depression and take medications as directed C/w gabapentin 300mg TID Class 3 severe obesity with serious comorbidity and body mass index (BMI) of 45.0 to 49.9 in adult 07/07/2023 Assessment & Plan (06/07/2024 3:24 PM EST): Extensive counseling about healthy diet and exercise done Start Zepbound as soon as possible I will follow-up with her in 4 weeks Assessment & Plan (04/24/2024 1:22 PM EST): Today extensive discussion was done about life style modifications I advise healthy diet (low calorie) and cardiovascular exercise I will switch patient to zepbound Assessment & Plan (10/05/2023 12:38 PM EDT): Today extensive discussion was done about life style modifications I advise healthy diet (low calorie) and cardiovascular exercise Wegovy was increase to 0.5mg weekly RTC 4 weeks Contact dermatitis 04/26/2023 Assessment & Plan (04/26/2023 2:45 PM EST): Talk to supplier about a different mask material Triamcinolone cream BID Varicose veins of leg with pain, bilateral 04/26 Assessment & Plan (04/26/2023 2:44 PM EST): Compression stockings will be prescribe Plantar fasciitis, bilateral 02/15/2023 Lipoma 02/15/2023 Diarrhea 01/03/2023 Lumbar radiculopathy, chronic 01/03/2023 Assessment & Plan (04/26/2023 2:44 PM EST): Continue to follow with pain management Acetaminophen arthritis + gabapentin+flexeril C/w PT Assessment & Plan (02/15/2023 9:54 AM EDT): Continue to follow with pain management C/w baclofen and gabapentin Assessment & Plan (01/03/2023 5:25 PM EDT): Pain could be related To radiculopathy Will order MRI L-spine and refer to pain Clinic Left leg pain 01/03/2023 Neuropathy 11/09/2022 Assessment & Plan (04/24/2024 1:21 PM EST): I will go up on gabapentin to 400mg Q 8hrs Assessment & Plan (11/09/2022 11:06 AM EDT): I increase her gabapentin to 300mg TID Acetaminophen PRN F/u with podiatry Seasonal allergic rhinitis 08/06/2022 Heartburn 08/06/2022 Assessment & Plan (08/06/2022 10:46 AM EDT): I advise patient to avoid NSAIDs, spicy and acid food, I advise to eat at the same time every day, I advise to elevate the head of the bed and take medications as prescribe I will do trail of famotidine to be use until she finish her antibiotics Neck pain 08/06/2022 Assessment & Plan (08/06/2022 10:45 AM EDT): Ill do trial of cyclobenzaprine and acetaminophen I advise to use heat on affected area Migraine without aura, not refractory 08/05/2022 Assessment & Plan (10/05/2023 12:38 PM EDT): I advise to avoid migraine triggers like red wine, chocolate, cheese, strong perfumes Assessment & Plan (11/09/2022 11:08 AM EDT): I advise to avoid migraine triggers like red wine, chocolate, cheese, strong perfumes C/w current regimen (propanolol, fioricet) Mild intermittent asthma 08/05/2022 Moderate persistent asthma 08/05/2022 Severe obesity 08/05/2022 Multiple joint pain 08/05/2022 Hand pain 08/05/2022 Pain in elbow 08/05/2022 Palpitations 08/05/2022 Assessment & Plan (02/15/2023 9:54 AM EDT): Labs reviewed with patient C/w propanolol Do not miss cardiology appointment Psoriasis 08/05/2022 Subconjunctival hemorrhage 08/05/2022 UTI symptoms 08/05/2022 Acute urinary tract infection 08/03/2022 Anxiety 08/03/2022 Chronic low back pain 08/03/2022 Dizziness 08/03/2022 Chronic sinusitis 08/03/2022 Dry eyes 12/04/2019 Cellulitis of lower limb 02/15/2018 Obstructive sleep apnea syndrome 12/29/2016 Mild persistent asthma 03/01/2016 Osteopenia 03/01/2016 Allergic rhinitis 06/20/2015 Anemia 06/20/2015 Crohn's disease of small and large intestines Erythema nodosum 06/20/2015 Fibromyositis 06/20/2015 Insomnia 06/20/2015 Morbid obesity 06/20/2015 Vitamin D deficiency 06/20/2015 Varicose veins 06/20/2015 Encounters Date Type Department Care Team Description 06/11/2024 Refill [facility] [address] [place] [id number] Ceci Billings MD Crohn's disease of both small and large intestine without complication ([facility]/HCC) 06/07/2024 11:30 AM EST Office Visit [facility] [address] [place] [id number] Ceci Billings MD Fibromyalgia (Primary Dx); Class 3 severe obesity with serious comorbidity and body mass index (BMI) of 45.0 to 49.9 in adult, unspecified obesity type ([facility]/HCC) 06/07/2024 Travel 05/28/2024 Telephone [facility] [address] [place] [phone] Ceci Billings MD Prior Authorization ( PA Request: Zepbound) 05/25/2024 Patient Outreach [address] [phone] Ceci Billings MD Pre-visit Planning (SDOH screening negative and tobacco screening negative) 05/22/2024 Refill [facility] [place] [address] Ceci Billings MD 05/08/[address] [address] Ceci Billings MD Prior Authorization ( PA Request: Zepbound) 04/24/2024 9:00 AM EST Office Visit [facility] [place] [address] Ceci Billings MD Neuropathy (Primary Dx); Lumbar radiculopathy, chronic; Class 3 severe obesity with serious comorbidity and body mass index (BMI) of 45.0 to 49.9 in adult, unspecified obesity type (CMS/HCC); Insomnia, unspecified type; Heartburn; Migraine without aura, not refractory 04/24/2024 Travel 04/23/2024 Orders Only [address] [address] Ceci Billings MD 04/23/2024 Travel 04/12/2024 Patient Outreach [address] [phone] Ceci Billings MD Pre-visit Planning (SDOH screening completed on 06/29/2023) 03/30/[address] [address] Jaylin Campbell, CARMITA Med Refill (Wegovy notification) 03/27/[address] [phone] Ceci Billings MD Neuropathy from Last 3 Months Immunizations Name Administration Dates Next Due Hep B, adult 01/08/2010,07/08/2009,06/05/2009 Influenza Whole 02/25/2009 Influenza injectable quadriv alent IIV4 with preservative 03/01/2016,06/20/2015 Influenza injectable quadriv alent preservative free 02/15/2023,05/07/2021,01/26/2019,02/21,02/25/2017 Influenza, IIV3, injectable 12/24/2020,1 06/05/2018,02/07/2014,02/15,04/12/2006 Influenza, Split (incl. cb fied surface antigen) 03/12/2013,12/29/2011 Influenza, seasonal, injecta ble, preservative free 02/03/2018 Pneumococcal Conjugate PCV 20 10/05/2023 Pneumococcal Polysaccharide PPSV23 07/09/2013, Pneumococcal, Unspecified 07/11/2006 Td (adult), 5 Lf tetanus tox oid, preservative free, adsorbed 12/17/1999 Tdap 04/26/2023,07/13/2012 Social History Tobacco Use Types Packs/Day Years Used Date Smoking Tobacco: Never Passive Smoke Exposure: Never Smokeless Tobacco: Never Tobacco Cessation:Counseling Given: Not Answered Alcohol Use Standard Drinks/Week Comments Never 0 (1 standard drink = 0.6 oz pur e alcohol) Depression Answer Date Recorded Patient Health Questionnaire-9 Score 0 10/05/2023 Patient Health Questionnaire-9 Score 0 10/05/2023 Last PHQ-9: Questionnaire Data Not on file 0 10/05/2023 Housing Stability Answer Date Recorded What is your housing situation today? I have terrellrowena barr 02/07/[address] you li ve. Do you have problems with any of the following? None of the above 02/07/2023 Food Insecurity Answer Date Recorded Within the past 12 months, y ou worried that your food would run out before you got money to buy more: Never True 02/07/2023 Within the past 12 months,th e food you bought just didn't last and you didn't have enough money to get more: Never True Transportation Answer Date Recorded In the past 12 months, has l ack of transportation kept you from medical appts, meetings, work or from getting things needed for daily living? No 02/07/2023 Utilities Answer Date Recorded In the past 12 months, has t he electric, gas, oil or water company threatened to shut off services in your home? No 02/07/2023 Depression Answer Date Recorded Patient Health Questionnaire-2 Score 0 10/05/2023 Internet Access Answer Date Recorded Internet Access Q1 Yes 05/25/2024 Internet Access Q2 Not on file 05/25/2024 Comments Unknown Sex and Gender Information Value Date Recorded Sex Assigned at Female 02/22/2022 10:16 AM EDT Legal Sex Female 10:16 AM EDT Gender Identity Female 02/22/2022 10:16 AM EDT Sexual Orientation Straight 03/07/2024 6: 04 PM EST Last Filed Vital Signs Vital Sign Reading Time Taken Comments Blood Pressure 117/65 06/07/2024 11:24 AM EST Pulse 66 06/07/2024 11:24 AM EST Temperature 35.3 ??C (95.6 ??F) 06/07/2024 11:[address] Respiratory Rate 18 06/07/2024 11:24 AM EST Oxygen Saturation 99% 10/05/2023 9:22 AM EDT Inhaled Oxygen Concentration - - Weight 124 kg (273 lb 12.8 oz) 06/07/2024 11:24 AM EST Height 165.1 cm (5' 5 ) 06/07/2024 11:24 AM EST Body Mass Index 45.56 06/07/2024 11:24 AM EST Plan of Treatment Upcoming Encounters Date Type Department Care Team (Late st Contact Info) Description 07/24/2024 11:30 AM EDT Telemedicine [facility] [address] [place] [address] Ceci Billings MD [address] [place] [address] Health Maintenance Due Date Last Done Comments CT Colonography 1976 Colonoscopy 1976 Colorectal Cancer Screening 1976 FIT DNA/Cologuard 1976 FIT 1976 FOBT 1975 HIV Screening 1975 Sigmoidoscopy 1976 Alcohol/Substance Use Screening 1988 Family Planning (PISQ) 09/12/1991 Hepatitis C Screening 1994 Pap Smear 1997 COVID-19 Vaccine ( season) 2023 08/19/2020, 07/11/2020 Influenza Vaccine (#1) 2023 3, 05/07/2021, 12/24/2020, Additional history exists Mammogram 04/04/2024 04/04/2023, 03/25, 11/15/2022, Additional history exists Depression Screening 10/04/2024 10/05/2023, 10/05/19 SDOH Screening 05/25/2025 05/25/2024 Tobacco Screening 06/07/2025 06/07/2024 Zoster Vaccines (1 of 2) 2026 Cervical Cancer Screening 11/09/2026 HPV/Cotest 11/09/2026 11/09/2021, 10/23, 05/26/2020, Additional history exists Lipid Panel 08/07/2027 08/06/2022 DTaP/Tdap/Td Vaccines (3 - Td or Tdap) 04/26/2033 04/26/2023, 07/13/2012, 12/17/1999 RSV Patients and Patients Aged 60 years or older (1 - 1-dose 75+ series) 09/12/2051 Hepatitis B Vaccines Completed 01/08/2010, 07/08/2009, 06/05/2009 Pneumococcal Vaccine: Pediatrics (0 to 5 Years) and At-Risk Patients (6 to 49) Years) Completed 10/05/2023, 07/09/2013, 07/11/2006, Additional history [...] patient's age to complete this topic Meningococcal Vaccine Aged Out No liliana jasper eligible based on patient's age to complete this topic RSV under 20 months Aged Out No longe r eligible based on patient's age to complete this topic Rotavirus Vaccines Aged Out No longer eligible based on patient's age to complete this topic Procedures Procedure Name Priority Date/Time Associated Diagnosis Comments BI MAMMOGRAM DIAGNOSTIC TOMOSYNTHESIS BILATERAL Routine 04/04/2023 3:40 PM EST LIPID PANEL, STANDARD Routine 08/06/2022 10:02 AM EDT Migraine without aura, not refractory ZZZ HISTORICAL HPV E6/E7 RFLX JESSICA 16 18/45 Routine 11/09/2021 2:40 PM EDT from Last 3 Months or Most Recently Relevant to Health Maintenance Results * BI Mammogram Diagnostic Tomosynthesis Bilateral (04/04/2023 3:40 PM EST) Anatomical Region Laterality Modality Breast Bilateral Mammography 04/04/2023 3:40 PM EST Narrative 04/04/2023 4:30 PM EST ? [facility] [place] ? [address] ?[place] [address] ? Mammography Report ? Signed ? Patient: Windy Mcfarlane ?MR# ?? : [id number] ? : 1975 ?Acct:[id number] ? Age/Sex: 47 / F ?ADM Date: 04/04/23 ? Loc: HO.MAMMO ? Attending Dr: Sotero Tyson MD ? Ordering Physician: Cuauhtemoc Tolliver MD ?Results: 2Benig ?? n Findings ? Date of Service: 04/04/23 ?Follow Up: 1 Year From Orig ?? inal Mammogram ? Procedure(s): MM tomosynthesis diagnostic BI ?? Accession Number(s): [id number] ? cc: Ceci Billings MD; Cuauhtemoc Tolliver MD ? EXAMINATION: ?? MM DIAGNOSTIC DIGITAL BREAST TOMOSYNTHESIS, BILATERAL ?? US BREAST DIAGNOSTIC, BILATERAL ? CLINICAL INFORMATION: ? 47-year-old female, complaining of both pain and palpable foci of ?? concern in bilateral axillary regions. Patient has had a breast ?? reduction in 2001. ? COMPARISON: ?? Mammography: Comparison was made to exams dating 11/15/2022, ?? 11/05/2021, 04/06/2018, 08/18/2016. ? TECHNIQUE: ?? Digital breast tomosynthesis is performed in both the craniocaudal and ?? mediolateral oblique views along with computer-aided detection (CAD). ?? Synthesized 2D images are generated from the tomosynthesis. ??In ?? addition, full-field 3-D bilateral X CCL views were obtained. ? FINDINGS: ?? There are scattered areas of fibroglandular density (ACR BI-RADS breast ?? composition Category b). ? There are no significant masses, abnormal calcifications, or other ?? abnormalities in either breast. Is a stable cluster of cysts in the ?? upper far outer right breast, middle one third. ?? The axilla have been marked by the technologist in the regions of pain ?? and palpable concern. No underlying mammographic focus of concern is ?? present. These regions will be examined by ultrasound. ? ULTRASOUND: ? CLINICAL INFORMATION: ?? 47-year-old female, complaining of both pain and palpable foci of ?? concern in bilateral axillary regions ? COMPARISON: ?? None relevant. ? TECHNIQUE: ?? High-resolution grayscale sonography of both axillary regions was ?? performed. Selected archives were obtained. ? FINDINGS: ? RIGHT AXILLA: ?? Only fatty tissue is visualized. No suspicious solid or cystic lesion ?? or area of suspicious echotexture is demonstrated. There is a ?? hyperechoic focus in the area of palpable concern measuring 7 x 6 x 4 ?? mm, with some peripheral calcification within the mid right axilla, ?? diagnostic for a focus of fat necrosis. This is benign. Otherwise, no ?? additional findings. ? LEFT AXILLA: ?? Only fatty tissue is visualized. No suspicious solid or cystic lesion ?? or area of suspicious echotexture is demonstrated. There is a solitary ?? benign-appearing lymph node with fatty pelvis and normal thickness ?? cortex present. This was responsible for the palpable left focus. ? MM/MM tomosynthesis diagnostic BI ?? IMPRESSION: ?? No mammographic or sonographic evidence of malignancy in either breast ?? or axilla. Benign findings as detailed. ? Recommend the patient return to routine annual screening. ? OVERALL ASSESSMENT: ?? Mammography: BI-RADS 2 - Benign Findings ?? Ultrasound: BI-RADS 2 - Benign Findings ? RECOMMENDATION: ?? Routine annual mammography screening. ? 1 year F/U ? This examination should not preclude the clinical evaluation of a ?? suspicious palpable abnormality. ? This patient's information was entered into a reminder system with a ?? target due date for their next mammogram. ? Dictated By: ?Eliel Chiu MD ? Signed By: ?<Electronically signed by Eliel Chiu MD in OV> ?12/11/23 1627 ? DD/ 1540 ? TD/TT: ? Filter Tip Inspector: ? Procedure Note Isidra, Image - 04/04/2023 [place] [address] [place] [address] Mammography Report Signed Patient: Rubén Mcfarlaneraissa# : [id number] : 1975Acct:[id number] Age/Sex: 47 / FADM Date: 04/04/23 Loc: HO.MAMMO Attending Dr: Sotero Tyson MD Ordering Physician: Cuauhtemoc Tolliveresults: 2Benig n Findings Date of Service: 04/04/23Follow Up: 1 Year From Orig inal Mammogram Procedure(s): MM tomosynthesis diagnostic BI Accession Number(s): [id number] cc: Ceci Billings MD; Cuauhtemoc Tolliver MD EXAMINATION: MM DIAGNOSTIC DIGITAL BREAST TOMOSYNTHESIS, BILATERAL US BREAST DIAGNOSTIC, BILATERAL CLINICAL INFORMATION: 47-year-old female, complaining of both pain and palpable foci of concern in bilateral axillary regions. Patient has had a breast reduction in 2001. COMPARISON: Mammography: Comparison was made to exams dating 11/15/2022, 11/05/2021, 04/06/2018, 08/18/2016. TECHNIQUE: Digital breast tomosynthesis is performed in both the craniocaudal and mediolateral oblique views along with computer-aided detection (CAD). Synthesized 2D images are generated from the tomosynthesis. In addition, full-field 3-D bilateral X CCL views were obtained. FINDINGS: There are scattered areas of fibroglandular density (ACR BI-RADS breast composition Category b). There are no significant masses, abnormal calcifications, or other abnormalities in either breast. Is a stable cluster of cysts in the upper far outer right breast, middle one third. The axilla have been marked by the technologist in the regions of pain and palpable concern. No underlying mammographic focus of concern is present. These regions will be examined by ultrasound. ULTRASOUND: CLINICAL INFORMATION: 47-year-old female, complaining of both pain and palpable foci of concern in bilateral axillary regions COMPARISON: None relevant. TECHNIQUE: High-resolution grayscale sonography of both axillary regions was performed. Selected archives were obtained. FINDINGS: RIGHT AXILLA: Only fatty tissue is visualized. No suspicious solid or cystic lesion or area of suspicious echotexture is demonstrated. There is a hyperechoic focus in the area of palpable concern measuring 7 x 6 x 4 mm, with some peripheral calcification within the mid right axilla, diagnostic for a focus of fat necrosis. This is benign. Otherwise, no additional findings. LEFT AXILLA: Only fatty tissue is visualized. No suspicious solid or cystic lesion or area of suspicious echotexture is demonstrated. There is a solitary benign-appearing lymph node with fatty pelvis and normal thickness cortex present. This was responsible for the palpable left focus. MM/MM tomosynthesis diagnostic BI IMPRESSION: No mammographic or sonographic evidence of malignancy in either breast or axilla. Benign findings as detailed. Recommend the patient return to routine annual screening. OVERALL ASSESSMENT: Mammography: BI-RADS 2 - Benign Findings Ultrasound: BI-RADS 2 - Benign Findings RECOMMENDATION: Routine annual mammography screening. 1 year F/U This examination should not preclude the clinical evaluation of a suspicious palpable abnormality. This patient's information was entered into a reminder system with a target due date for their next mammogram. Dictated By: Eliel Chiu MD Signed By: <Electronically signed by Eliel Chiu MD in OV> 04/04/23 1627 DD/ 1540 TD/TT: Filter Tip Inspector: Result [facility] External Provider IMG BI PROCEDURES Final Result * Lipid Panel, Standard (08/06/2022 10:02 AM EDT) Cholesterol, Total 144 <200 mg/dL [facility] HDL Cholesterol 58 > OR = 50 mg/dL [facility] Triglycerides 49 <150 mg/dL [facility] LDL Cholesterol 72 mg/dL (calc) [facility] Comment: Reference range: <100 Desirable range <100 mg/dL for primary prevention; ?? <70 mg/dL for patients with CHD or diabetic patients with > or = 2 CHD risk factors. LDL-C is now calculated using the Blayne-Gil calculation, which is a validated novel method providing better accuracy than the Friedewald equation in the estimation of LDL-C. Blayne SS et al. NICHELLE. 2013;310(19): 7283-7920 (http://education.IdeaPaint.WeLab/faq/EJB368) Chol/HDLC Ratio 2.5 <5.0 (calc) [facility] Non-HDL Cholesterol 86 <130 mg/dL (calc) [facility] [place] [employer] Comment: For patients with diabetes plus 1 major ASCVD risk factor, treating to a non-HDL-C goal of <100 mg/dL (LDL-C of <70 mg/dL) is considered a therapeutic option. Blood Venous blood specimen / Unknown 08/06/2022 10:02 AM EDT 08/06/2022 10:02 AM EDT Narrative QUEST - 08/07/2022 2:37 AM EDT FASTING:NO FASTING: NO Ceci Peacock MD LAB BLOOD ORDERABLES Final Result Performing Organization Address City/[facility]/ZIP Co de Phone Number [facility] [address] [place] [address], [place] [address] [facility] [place] [facility] [address] [place] [phone] * HPV E6/E7 RFLX JESSICA 16 18/45 (11/09/2021 2:40 PM EDT) HPV mRNA E6/E7 rflx Not Detected Not Detected [facility] Comment: Methodology: Waterworks Chief Engineer-Mediated Amplification This assay detects E6/E7 viral messenger RNA (mRNA) from 14 high-risk HPV types (16,18,31,33,35,39,45,51,52,56,58,59,66,68). Cervical sources are required for HPV testing. If a vaginal source from a patient who has had a total hysterectomy with removal of cervix was submitted, please contact the testing laboratory for alternative testing options. For additional information, please refer to http://education.Sprio/faq/QIV467b6 (This link if provided for information/ educational purposes only.) THIS TEST WAS PERFORMED AT: [facility] [address] [place], [place] ??[phone] TIN DICKEY MD 11/09/2021 2:40 PM EDT Kylee Blount HISTORICAL/NON ORDERABLE LABS Fi nal Result Performing Organization Address City/[facility]/ZIP Co de Phone Number [facility] [address] from Last 3 Months or Most Recently Relevant to Health Maintenance Insurance [facility] C3 HSN FULL Care Teams Training Facilitator Relationship Specialty Start Date End Date Ceci Billings MD [address] [place] [phone] PCP - General Family Medicine 06/02/20
--- OUTSIDE RECORDS SUMMARY | 2024-06-20 16:46 | XMS_ITS ---
Author Organization [facility] Address [address] [place] [address] Care Team Providers Care Darkroom Worker Name Role Phone Summer Dwyer NP Primary Care Provider Unavailab Emerson Kothari [phone] Encounters Encounter Location Date Provider Diagnosis [facility] [address] [place] [address] 06/05/2024 Emerson Canales PLAN OF TREATMENT Next Appt Details Provider Name:Emerson Canales , 01/09/2025 01:20:00 PM, [address], [address], [place], [address],
--- OUTSIDE RECORDS SUMMARY | 2024-06-20 16:46 | XMS_ITS | Encounter Summary ---
Author Organization [employer] Address [address] [facility] 7t [place] [address] Care Team Providers Care Manager Search Name Role Phone Ceci Billings MD Primary Care Provide r Reason for Visit * Reason Onset Date Comments Medication Question 03/12/2024 Encounter Details Date Type Department Care Team ([facility] Contact Info) Description 03/12/2024 Telephone [facility] [address] [place] [address] Ceci Billings MD [address] [place] [address] Medication Question Social History Tobacco Use Types Packs/Day Years Used Date Smoking Tobacco: Never Passive Smoke Exposure: Never Smokeless Tobacco: Never Alcohol Use Standard Drinks/Week Comments Never 0 (1 standard drink = 0.6 oz pur e alcohol) Depression Answer Date Recorded Patient Health Questionnaire-9 Score 0 10/05/2023 Patient Health Questionnaire-9 Score 0 10/05/2023 Last PHQ-9: Questionnaire Data Not on file 0 10/05/2023 Housing Stability Answer Date Recorded What is your housing situation today? I have terrell barr 02/07/[address] you [...] Recorded Patient Health Questionnaire-2 Score 0 10/05/2023 Comments Unknown Sex and Gender Information Value Date Recorded Sex Assigned at Female 02/22/2022 10:16 AM EDT Legal Sex Female 10:16 AM EDT Gender Identity Female 02/22/2022 10:16 AM EDT Sexual Orientation Straight 03/07/2024 6: 04 PM EST documented as of this encounter Miscellaneous Notes * Telephone Encounter - Priscilla Bustillos - 03/12/2024 11:24 AM EST PA for Wegovy was denied, more information is required at this time. Additional clinical documentation including current weight, change in bodyweight from baseline, and improvements in secondary outcomes. * Telephone Encounter - Bernardino Conway - 03/12/2024 10:34 AM EST Tc from pt requesting a callback due to having several questions on med PA . Callback number [phone] documented in this encounter Plan of Treatment Upcoming Encounters Date Type Department Care Team (Late st Contact Info) Description 07/24/2024 11:30 AM EDT Telemedicine [facility] [address] [place] [address] Ceci Billings MD [address] [place] [address] documented as of this encounter Visit Diagnoses Not on filedocumented in this encounter Additional Health Concerns Assessment Noted Time PHQ-9 Depression Total Score: 0 10/05/19 24 9:33 AM EDT documented as of this encounter Care Teams Manager Search Relationship Specialty Start Date End Date Ceci Billings MD [address] [place] [address] PCP - General Family Medicine 06/02/20 documented as of this encounter
--- OUTSIDE RECORDS SUMMARY | 2024-06-20 16:46 | XMS_ITS | Encounter Summary ---
Author Organization [employer] Address [address] [facility] 7t [place] [address] Care Team Providers Care Tool Design Drafter Name Role Phone Ceci Billings MD Primary Care Provide r Reason for Visit * Reason Comments Med Refill Encounter Details Date Type Department Care Team (Late Contact Info) Description 04/30/2022 Refill [facility] [address] [place] [address] Jesús Vale MD [address] [place] [address] Influenza-like illness Social History Tobacco Use Types Packs/Day Years Used Date Smoking Tobacco: Never Smokeless Tobacco: Never Comments Unknown Sex and Gender Information Value Date Recorded Sex Assigned at Female 02/22/2022 10:16 AM EDT Legal Sex Female 10:16 AM EDT Gender Identity Female 02/22/2022 10:16 AM EDT Sexual Orientation Straight 03/07/2024 6: 04 PM EST COVID-19 Exposure Response Date Recorded In the last 10 days, have yo u been in contact with someone who was confirmed or suspected to have Coronavirus/COVID-19? No / Unsure 04/15/2022 1:45 PM EST documented as of this encounter Plan of Treatment Upcoming Encounters Date Type Department Care Team (Late Contact Info) Description 07/24/2024 11:30 AM EDT Telemedicine [facility] [address] [place] [address] Ceci Billings MD [address] [place] [address] documented as of this encounter Visit Diagnoses Diagnosis Influenza-like illness documented in this encounter Care Teams Tool Design Drafter Relationship Specialty Start Date End Date Ceci Billings MD [address] [place] [address] PCP - General Family Medicine 06/02/20 documented as of this encounter
--- OUTSIDE RECORDS SUMMARY | 2024-06-20 16:46 | XMS_ITS ---
Author Organization [facility] Address [address] [place] [address] Care Team Providers Care Plastics Plater Name Role Phone Summer Dwyer NP Primary Care Provider Unavailab Emerson Kothari Unavailable [phone] REASON FOR VISIT waiting on ins for every 4 weeks stelara Encounters Encounter Location Date Provider Diagnosis [facility] [address] [facility] [address] [place] [address] 06/14/2024 Emerson Canales PLAN OF TREATMENT Next Appt Details Provider Name:Emerson Canales , 01/09/2025 01:20:00 PM, [address] [facility], [address], [place], [address],
--- OUTSIDE RECORDS SUMMARY | 2024-06-20 16:46 | XMS_ITS ---
Author Organization [facility] Address [address] [place] [address] Care Team Providers Care Biomedical Scientist Name Role Phone Reymundo WEEMS, Summer Primary Care Provider Emerson Sauceda Unavailable [phone] ALLERGIES Allergen (clinical drug ingredient) Drug/Non Drug Allergy documented on EMR Reaction Allergy Type Onset Date Status vancomycin Vancomycin HCl Unknown Drug Allergy A ctive ciprofloxacin cipro (uncoded) Unknown Allergy Active REASON FOR VISIT Patient presents today for gerd, crohns MEDICATIONS Medication SIG (Take, Route, Frequency, Duration) Notes Start Date End Date Status Pantoprazole Sodium 40 MG take 1 tablet by mouth every day Orally Once a day for 30 days Active Imodium A-D 2 MG 1 or 2 tablets Orall y Every 4 to 6 hours as needed for diarrhea for 30 days 08/14/2022 Active Stelara 90 MG/ML ADMINISTER 1 INJECTI ON UNDER THE SKIN EVERY 8 WEEKS for 56 Active Dicyclomine HCl 20 MG TAKE 1 TABLET BY M OUTH THREE TIMES DAILY WITH MEALS for 30 Active Gabapentin 400 MG Oral for 30 Days Active Protonix 40 MG 1 tablet Orally Once a day for 30 day(s) 03/02/2019 Active Propranolol HCl 20 MG TAKE 1 TABLET BY M OUTH EVERY DAY Oral for 90 Active Dicyclomine HCl 10.0 Milligram Take 1 or 2 capsules QID prn abdominal cramps and/or diarrhea Active Fluconazole 150 MG 1 tablet Orally Take 1 on Day #1, 1 on Day #2, and 1 on Day #7 for 7 days Active Bentyl 10 MG 1 tablet Orally 1-2 QID prn abdominal cramps/discomfort 07/24/2013 Active Sertraline HCl 50 MG 1 half tablet Orall y Once a day Active Baclofen 20 MG/20ML Intrathecal Three times a day Active Fexofenadine HCl 180 MG 1 tablet as needed Orally Once a day for 30 day(s) Active Vitamin D 2000 UNIT 1 tablet Orally Once a day for 30 day(s) Active Qdlfsgxojj-OHBF-Quqtuf ne 50-325-40 MG TAKE 1 TO 2 TABLETS BY MOUTH EVERY 4 HOURS NEEDED. NOT TO EXCEED 6 TABLETS PER 24 HOURS Oral for 5 Active Diphenoxylate-Atropine 0 TAKE 1 TO 2 TABLETS BY MOUTH FOUR TIMES DAILY NEEDED FOR DIARRHEA only prn-rare Active Tylenol 325 MG 1 tablet as needed Orally prn Active Ambien 10 MG 1 tablet at bedtime as needed Orally Once a day Active Zepbound 2.5 MG/0.5ML 0.5 mL Subcutaneou s for 30 day(s) Active hydrOXYzine Pamoate 25 MG as directed Orally every 6 hrs Active Senna Active SOCIAL HISTORY Tobacco Use: Social History Observation Description Date Details (start date - stop date) Former Smoker NA - NA Sex Assigned At : Social History Observation Description Sex Assigned At Unknown Tobacco Use/Smoking Question Answer Notes Patient is a former smoker How long has it been since you last smoked? > 10 years VITAL SIGNS Blood pressure systolic 111 mm Hg 06/05/19 25 Blood pressure diastolic 11 mm Hg 025 Height 65.5 in 06/05/2024 Weight 267 lbs 06/05/2024 BMI 43.75 kg/m2 06/05/2024 Encounters Encounter Location Date Provider Diagnosis [facility] [address] [facility] [address] [place] [address] 06/05/2024 Emerson Canales Crohn's disease of both small and large intestine without complication K50.80 ; Irritable bowel syndrome K58.9 ; Chronic GERD K21.9 and Vaginal candidiasis B37.3 ASSESSMENTS Encounter Date Diagnosis Assessment Notes Treatment Notes Treatment Clinical Notes 06/05/2024 Crohn's disease of both small and large intestine without complication (ICD-10 - K50.80) Increase the Stelara to every 4 weeks 06/05/2024 Irritable bowel syndrome (ICD-10 - K58.9) Start using 2 Metamucil fiber pills once or twice every day with a lot of water. 06/05/2024 Chronic GERD (ICD-10 - K21.9) 06/05/2024 Vaginal candidiasis (ICD-10 - B37.3) PLAN OF TREATMENT Medication Medication Name Sig Start Date Stop Date Notes Pantoprazole Sodium 40 MG take 1 tablet by mouth every day Orally Once a day for 30 days Fluconazole 150 MG 1 tablet Orally Take 1 on Day #1, 1 on Day #2, and 1 on Day #7 for 7 days Treatment Notes Assessment Notes Crohn's disease of both smal l and large intestine without complication Increase the Stelara to every 4 weeks Irritable bowel syndrome Start using 2 M etamucil fiber pills once or twice every day with a lot of water. Next Appt Details Follow Up: 2024, Reaso n: Provider Name:Emerson Fry Canales , 01/09/2025 01:20:00 PM, [address] [place] [address], [address], [place], [address], Progress Notes * Examination Category Sub-Category Detail Notes General Examination GENERAL APPEARANCE: pleasant , well nourished, well developed, in no acute distress EYES: sclera non-icteric NECK/THYROID: no cervical lymphade nopathy, neck supple HEART: S1, S2 normal LUNGS: clear to auscultatio n bilaterally ABDOMEN: normal bowel sounds, no guarding or rigidity, no hepatosplenomegaly, no masses palpable, soft, nontender, nondistended. NEUROLOGIC: alert and oriented SKIN: nonjaundiced, no spi estefania angiomata. EXTREMITIES: no edema ORAL CAVITY: mucosa moist
--- OUTSIDE RECORDS SUMMARY | 2024-06-20 16:46 | XMS_ITS | Encounter Summary ---
Author Organization [employer] Address [address] [place] [address] 7t [place] [address] Care Team Providers Care Best Second Jobs Name Role Phone Ceci Billings MD Primary Care Provide r Encounter Details Date Type Department Care Team (Late st Contact Info) Description 05/27/[address] [facility] [address] [place] [address] Ceci Billings MD [address] [place] [address] Social History Tobacco Use Types Packs/Day Years [...] Info) Description 07/24/2024 11:[address] [facility] [address] [place] [address] Ceci Billings MD [address] [place] [address] documented as of this encounter Visit Diagnoses Not on filedocumented in this encounter Care Teams Best Second Jobs Relationship Specialty Start Date End Date Ceci Billings MD [address] [place] [address] PCP - General Family Medicine 06/02/20 documented as of this encounter
--- OUTSIDE RECORDS SUMMARY | 2024-06-20 16:46 | XMS_ITS | Encounter Summary ---
Author Organization [employer] Address [address] [facility] [address] 7t [place] [address] Care Team Providers Care Film Spooler Name Role Phone Ceci Billings MD Primary Care Provide r Encounter Details Date Type Department Care Team (Late st Contact Info) Description 04/23/2024 Orders Only [facility] [address] [place] [address] Ceci Billings MD [address] [place] [address] Social History Tobacco Use Types Packs/Day Years [...] Info) Description 07/24/2024 11:30 AM EDT Telemedicine [facility] [address] [place] [address] Ceci Billings MD [address] [place] [address] documented as of this encounter Visit Diagnoses Not on filedocumented in this encounter Additional Health Concerns Assessment Noted Time PHQ-9 Depression Total Score: 0 10/05/19 24 9:33 AM EDT documented as of this encounter Care Teams Film Spooler Relationship Specialty Start Date End Date Ceci Billings MD [address] [place] [address] PCP - General Family Medicine 06/02/20 documented as of this encounter
--- OUTSIDE RECORDS SUMMARY | 2024-06-20 16:46 | XMS_ITS | Encounter Summary ---
Author Organization [employer] Address [address] [facility] [address] 7t [place] [address] Care Team Providers Care Registrar Museum Name Role Phone Ceci Billings MD Primary Care Provide r Encounter Details Date Type Department Care Team (Late st Contact Info) Description 06/07/2024 11:30 AM EST Office Visit [facility] [address] [place] [address] Ceci Billings MD [address] [place] [address] Fibromyalgia (Primary Dx); Class 3 severe obesity with serious comorbidity and body mass index (BMI) of 45.0 to 49.9 in adult, unspecified obesity type (CMS/HCC) Social History Tobacco Use Types Packs/Day Years [...] PM EST documented as of this encounter Last Filed Vital Signs Vital Sign Reading Time Taken Comments Blood Pressure 117/65 06/07/2024 11:24 AM EST Pulse 66 06/07/2024 11:24 AM EST Temperature 35.3 ??C (95.6 ??F) 06/07/2024 11:[address] Respiratory Rate 18 06/07/2024 11:24 AM EST Oxygen Saturation - - Inhaled Oxygen Concentration - - Weight 124 kg (273 lb 12.8 oz) 06/07/2024 11:24 AM EST Height 165.1 cm (5' 5 ) 06/07/2024 11:24 AM EST Body Mass Index 45.56 06/07/2024 11:24 AM EST documented in this encounter Progress Notes * Ceci Peacock MD - 06/07/2024 11:30 AM EST Images from the original note were not included. SUBJECTIVE: Windyraissa Chowdhury is a 48 y.o. year old female who presents for Follow up . Acute Concerns: Patient reports she has been having some neck pain and upper back pain, denies any trauma or triggering activity is happening for the past month approximately Patient continues to struggle with weight reduction, reports she has been having some issues with the preauthorization of her medication, she was just told yesterday that it was approved Social History Social History Narrative Not on file Patient Active Problem List Diagnosis Acute urinary tract infection Allergic rhinitis Anemia Anxiety Cellulitis of lower limb Chronic low back pain Crohn's disease of small and large intestines (CMS/HCC) Dizziness Dry eyes Erythema nodosum Chronic sinusitis Fibromyositis Insomnia Migraine without aura, not refractory Mild intermittent asthma Mild persistent asthma Moderate persistent asthma Morbid obesity (CMS/HCC) Severe obesity (CMS/HCC) Multiple joint pain Obstructive sleep apnea syndrome Osteopenia Hand pain Pain in elbow Palpitations Psoriasis Subconjunctival hemorrhage UTI symptoms Vitamin D deficiency Seasonal allergic rhinitis Heartburn Neck pain Varicose veins Neuropathy Diarrhea Lumbar radiculopathy, chronic Left leg pain Plantar fasciitis, bilateral Lipoma Contact dermatitis Varicose veins of leg with pain, bilateral Class 3 severe obesity with serious comorbidity and body mass index (BMI) of 45.0 to 49.9 in adult (CMS/[facility]) Other constipation Fibromyalgia No family history on file. Review of Systems Constitutional: Negative. HENT: Negative. Respiratory: Negative. Cardiovascular: Negative. Musculoskeletal: Positive for arthralgias and myalgias. OBJECTIVE: Vitals: 06/07/24 1124 BP: 117/65 BP Location: Left arm Patient Position: Sitting BP Cuff Size: Large adult Pulse: 66 Resp: 18 Temp: 95.6 ??F (35.3 ??C) TempSrc: Oral Weight: 273 lb 12.8 oz (124 kg) Height: 5' 5 (1.651 m) Physical Exam Constitutional: Appearance: Normal appearance. Cardiovascular: Rate and Rhythm: Normal rate and regular rhythm. Pulmonary: Effort: Pulmonary effort is normal. Breath sounds: Normal breath sounds. Abdominal: General: Abdomen is flat. Palpations: Abdomen is soft. Musculoskeletal: Arms: Cervical back: Spasms present. Comments: Muscle spasm Neurological: Mental Status: She is alert. Follow Up: Follow up in about 4 weeks (around 07/05/2024) for televisit weight . Current Outpatient Medications on File Prior to Visit Medication Sig Dispense Refill acetaminophen (Tylenol 8 Hour) 650 MG ER tablet Take 2 tablets (1,300 mg) by mouth every 8 (eight) hours if needed for mild pain. Do not crush, chew, or split. 40 tablet 0 albuterol (Ventolin HFA) 108 (90 Base) MCG/ACT inhaler INHALE 2 PUFFS BY MOUTH THREE TIMES DAILY ASNEEDED 18 g 3 blrfgvbhpe-tzwkrsoegkwzo-ettonsid 50-325-40 MG tablet Take 1 tablet by mouth every 12 (twelve) hours if needed for migraine (max two days per week). 15 tablet 2 docusate sodium (Colace) 100 MG capsule Take 1 capsule (100 mg) by mouth 2 times daily. 180 capsule0 famotidine (Pepcid) 20 MG tablet Take 1 tablet (20 mg) by mouth 2 times daily. 60 tablet 11 fexofenadine (Allergy Relief) 180 MG tablet TAKE 1 TABLET BY MOUTH EVERY DAY NEEDED 90 tablet 0 fluticasone (Flonase Allergy Relief) 50 MCG/ACT nasal spray Administer 1 spray into each nostril inthe morning. Shake gently. Before first use, prime pump. After use, clean tip and replace cap. 16 g12 fluticasone (Flovent) 110 MCG/ACT inhaler Inhale 1 puff in the morning and at bedtime. Rinse mouth with water after use to reduce aftertaste and incidence of candidiasis. Do not swallow. 12 g 11 gabapentin (Neurontin) 400 MG capsule Take 1 capsule (400 mg) by mouth 3 times daily. 90 capsule 3 ibuprofen 800 MG tablet Take 1 tablet (800 mg) by mouth every 8 (eight) hours if needed for mild pain, moderate pain, fever or headaches. 45 tablet 1 ondansetron (Zofran) 4 MG tablet Take 1 tablet (4 mg) by mouth every 8 (eight) hours if needed for nausea or vomiting. 20 tablet 0 propranolol (Inderal) 20 MG tablet TAKE 1 TABLET(20 MG) BY MOUTH EVERY DAY 90 tablet 1 senna (Senokot) 8.6 MG tablet Take 2 tablets (17.2 mg) by mouth 2 times daily. 120 tablet 0 Tirzepatide-Weight Management (Zepbound) 2.5 MG/0.5ML solution auto-injector Inject 0.5 mL (2.5 mg)under the skin 1 (one) time per week. 2 mL 0 triamcinolone (Kenalog) 0.1 % cream Apply topically if needed in the morning and at bedtime (pain and swelling). 30 g 0 zolpidem (Ambien) 10 MG tablet TAKE 1 TABLET BY MOUTH AT BEDTIME 30 tablet 5 [DISCONTINUED] baclofen (Lioresal) 20 MG tablet Take 1 tablet (20 mg) by mouth 3 times daily. 90 tablet 0 No current facility-administered medications on file prior to visit. Problem List Items Addressed This Visit Fibromyalgia - Primary Relevant Medications methocarbamol (Robaxin) 750 MG tablet Class 3 severe obesity with serious comorbidity and body mass index (BMI) of 45.0 to 49.9 in adult (CMS/[facility]) documented in this encounter Miscellaneous Notes * Assessment & Plan Note - Ceci Peacock MD - 06/07/2024 3:24 PM EST Associated Problem(s): Class 3 severe obesity with serious comorbidity and body mass index (BMI) of45.0 to 49.9 in adult ([facility]) Extensive counseling about healthy diet and exercise done Start Zepbound as soon as possible I will follow-up with her in 4 weeks * Assessment & Plan Note - Ceci Peacock MD - 06/07/2024 3:24 PM EST Associated Problem(s): Fibromyalgia Patient reports baclofen is not working for her anymore, I switch her medication to Robaxin 4 timesa day Extensive counseling about fibromyalgia condition done and was advised to maintain hydration, regular exercise, treat anxiety/depression documented in this encounter Plan of Treatment Upcoming Encounters Date Type Department Care Team (Late st Contact Info) Description 07/24/2024 11:30 AM EDT Telemedicine [facility] [address] [place] [address] Ceci Billings MD [address] [place] [address] documented as of this encounter Visit Diagnoses Diagnosis Fibromyalgia- Primary Unspecified myalgia and myositis Class 3 severe obesity with serious comorbidity and body mass index (BMI) of 45.0 to 49.9 in adult, unspecified obesity type (CMS/HCC) documented in this encounter Additional Health Concerns Assessment Noted Time PHQ-9 Depression Total Score: 0 10/05/19 24 9:33 AM EDT documented as of this encounter Care Teams Registrar Museum Relationship Specialty Start Date End Date Ceci Billings MD [address] [place] [phone] PCP - General Family Medicine 06/02/20 documented as of this encounter
--- OUTSIDE RECORDS SUMMARY | 2024-06-20 16:46 | XMS_ITS | Encounter Summary ---
Author Organization [employer] Address [address] [place] [address] Care Team Providers Care Educational Aide Name Role Phone Ceci Billings MD Primary Care Provide r Reason for Visit * Reason Comments Med Refill Encounter Details Date Type Department Care Team (Late st Contact Info) Description 01/03/2024 Refill [facility] [address] [place] [address] Ceci Billings MD [address] [place] [address] Social History Tobacco Use Types Packs/Day Years [...] Info) Description 07/24/2024 11:30 AM EDT Telemedicine [facility] [address] [place] [phone] Ceci Billings MD [address] [place] [address] documented as of this encounter Visit Diagnoses Not on filedocumented in this encounter Additional Health Concerns Assessment Noted Time PHQ-9 Depression Total Score: 0 10/05/19 24 9:33 AM EDT documented as of this encounter Care Teams Educational Aide Relationship Specialty Start Date End Date Ceci Billings MD [address] [place] [id number] PCP - General Family Medicine 06/02/20 documented as of this encounter
--- OUTSIDE RECORDS SUMMARY | 2024-06-20 16:46 | XMS_ITS | Encounter Summary ---
Author Organization [employer] Address [address] [place] [address] Care Team Providers Care Powerhouse Mechanic Helper Name Role Phone Ceci Billings MD Primary Care Provide r Encounter Details Date Type Department Care Team (Latest Contact Info) Description 06/07/2024 Travel Social History Tobacco Use Types Packs/Day Years [...] t he electric, gas, oil or water [employer] threatened to shut off services in your [...] 07/24/2024 11:30 AM EDT Telemedicine [facility] MED[facility]INE [address] [place] [phone] Ceci Billings MD [address] [place] [phone] documented as of this encounter Visit Diagnoses Not on filedocumented in this encounter Additional Health Concerns Assessment Noted Time PHQ-9 Depression Total Score: 0 10/05/19 24 9:33 AM EDT documented as of this encounter Care Teams Powerhouse Mechanic Helper Relationship Specialty Start Date End Date Ceci Billings MD [address] [place] [phone] PCP - General Family Medicine 06/02/20 documented as of this encounter
--- OUTSIDE RECORDS SUMMARY | 2024-06-20 16:46 | XMS_ITS | Encounter Summary ---
Author Organization [employer] Address [address] [place] [address] Care Team Providers Care Manager It Training Name Role Phone Ceci Billings MD Primary Care Provide r Reason for Visit * Reason Comments Med Refill Encounter Details Date Type Department Care Team (Late st Contact Info) Description 11/30/2023 Refill [facility] [address] [place] [address] Ceci Billings MD [address] [place] [address] Muscle spasm Social History Tobacco Use Types Packs/Day Years [...] Info) Description 07/24/2024 11:30 AM EDT Telemedicine [facility] [address] [place] [address] Ceci Billings MD [address] [place] [address] documented as of this encounter Visit Diagnoses Diagnosis Muscle spasm Spasm of muscle documented in this encounter Additional Health Concerns Assessment Noted Time PHQ-9 Depression Total Score: 0 10/05/19 24 9:33 AM EDT documented as of this encounter Care Teams Manager It Training Relationship Specialty Start Date End Date Ceci Billings MD [address] [place] [id number] PCP - General Family Medicine 06/02/20 documented as of this encounter
--- OUTSIDE RECORDS SUMMARY | 2024-06-20 16:46 | XMS_ITS | Encounter Summary ---
Author Organization [employer] Address [address] [place] [address] Care Team Providers Care Handle Turner Name Role Phone Ceci Billings MD Primary Care Provide r Encounter Details Date Type Department Care Team (Late st Contact Info) Description 07/27/2023 Orders Only [facility] [address] [place] [address] Ceci Billings MD [address] [place] [address] Class 3 severe obesity with serious comorbidity and body mass index (BMI) of 45.0 to 49.9 in adult, unspecified obesity type (CMS/HCC) (Primary Dx) Social History Tobacco Use Types Packs/Day Years Used Date Smoking Tobacco: Never Passive Smoke Exposure: Never Smokeless Tobacco: Never Depression Answer Date Recorded Patient Health Questionnaire-9 Score 5 07/07/2023 Patient Health Questionnaire-9 Score 5 07/07/2023 Last PHQ-9: Questionnaire Data Not on file 0 07/07/2023 Housing Stability Answer Date Recorded What is [...] Answer Date Recorded Patient Health Questionnaire-2 Score 2 07/07/2023 Comments Unknown Sex and Gender Information Value Date Recorded Sex Assigned at Female 02/22/2022 10:16 AM EDT Legal Sex Female 10:16 AM EDT Gender Identity Female 02/22/2022 10:16 AM EDT Sexual Orientation Straight 03/07/2024 6: 04 PM EST documented as of this encounter Plan of Treatment Upcoming Encounters Date Type Department Care Team (Late st Contact Info) Description 07/24/2024 11:30 AM EDT Telemedicine [facility] [address] [place] [address] Ceci Billings MD [address] [place] [address] documented as of this encounter Visit Diagnoses Diagnosis Class 3 severe obesity with serious comorbidity and body mass index (BMI) of 45.0 to 49.9 in adult, unspecified obesity type (CMS/HCC)- Primary documented in this encounter Additional Health Concerns Assessment Noted Time PHQ-9 Depression Total Score: 5 07/07/19 24 10:12 AM EDT documented as of this encounter Care Teams Handle Turner Relationship Specialty Start Date End Date Ceci Billings MD [address] [place], [place] [phone] PCP - General Family Medicine 06/02/20 documented as of this encounter
--- OUTSIDE RECORDS SUMMARY | 2024-06-20 16:46 | XMS_ITS | Encounter Summary ---
Author Organization [email or web address] Address [address] [place] [address] Care Team Providers Care Abrading Machine Tender Name Role Phone Ceci Billings MD Primary Care Provide r Reason for Visit * Reason Comments Med Refill Encounter Details Date Type Department Care Team (Late st Contact Info) Description 06/11/2024 Refill [facility] [address] [place] [address] Ceci Billings MD [address] [place] [address] Crohn's disease of both small and large intestine without complication (CMS/HCC) Social History Tobacco Use Types Packs/Day [...] Info) Description 07/24/2024 11:30 AM EDT Telemedicine [facility] [address] [place] [address] Ceci Billings MD [address] [place] [address] documented as of this encounter Visit Diagnoses Diagnosis Crohn's disease of both small and large intestine without complication (CMS/HCC) documented in this encounter Additional Health Concerns Assessment Noted Time PHQ-9 Depression Total Score: 0 10/05/19 24 9:33 AM EDT documented as of this encounter Care Teams Abrading Machine Tender Relationship Specialty Start Date End Date Ceci Billings MD [address] [place] [address] PCP - General Family Medicine 06/02/20 documented as of this encounter
--- OUTSIDE RECORDS SUMMARY | 2024-06-20 16:47 | XMS_ITS | Encounter Summary ---
Author Organization [employer] Address [address] [place] [address] 7t [place] [address] Care Team Providers Care Pneumatic Drum Sander Name Role Phone Ceci Billings MD Primary Care Provide r Reason for Visit * Reason Onset Date Comments Prior Authorization 05/28/2024 PARK Reques t: Zepbound Encounter Details Date Type Department Care Team (Late st Contact Info) Description 05/28/2024 Telephone [facility] [address] [place] [address] Ceci Billings MD [address] [place] [address] Prior Authorization (ZHENG NICK Request: Zepbound) Social History Tobacco Use Types Packs/Day Years [...] * Telephone Encounter - Priscilla Bustillos - 06/05/2024 9:52 AM EST Approval for Zepbound was received, patient was called and notified. Approval was forwarded to scanning. * Telephone Encounter - Priscilla Bustillos - 06/04/2024 4:05 PM EST PA for Zepbound signed [facility]. Confirmation received and sent to scan. If patient calls to check status on above, please advise them to contact [facility] at [phone]. * Telephone Encounter - Priscilla Bustillos - 05/28/2024 10:31 AM EST PA for Zepbound from [facility] placed on PCP desk for signature. Updated information for contraindication to P[employer] had been added to request. documented in this encounter Plan of Treatment Upcoming Encounters Date Type Department Care Team (Late st Contact Info) Description 07/24/2024 11:30 AM EDT Telemedicine [facility] [address] [place] [address] Ceci Billings MD [address] [place] [address] documented as of this encounter Visit Diagnoses Not on filedocumented in this encounter Additional Health Concerns Assessment Noted Time PHQ-9 Depression Total Score: 0 10/05/19 24 9:33 AM EDT documented as of this encounter Care Teams Pneumatic Drum Sander Relationship Specialty Start Date End Date Ceci Billings MD [address] [place] [address] PCP - General Family Medicine 06/02/20 documented as of this encounter
--- OUTSIDE RECORDS SUMMARY | 2024-06-20 16:47 | XMS_ITS | Encounter Summary ---
Author Organization [employer] Address [address] [place] [address] Care Team Providers Care Off Premise Service Representative Name Role Phone Ceci Billings MD Primary Care Provide r Reason for Visit * Reason Comments Pre-visit Planning SDOH screening negat neil and tobacco screening negative Encounter Details Date Type Department Care Team (Late st Contact Info) Description 05/25/2024 Patient Outreach [facility] [address] [place] [address] Ceci Billings MD [address] [place] [address] Pre-visit Planning (SDOH screening negative and tobacco screening negative) Social History Tobacco Use Types Packs/Day Years [...] PM EST documented as of this encounter Progress Notes * Jen Ball - 05/25/2024 9:12 AM EST CC Jen placed successful outbound call to patient for pre-visit planning. Patient name and confirmed. Patient confirms appt date and time, and has transportation. Biggest concern for appointment at this time is none Patient advised to bring to appointment a photo id and insurance card. Appropriate screenings completed in anticipation of appointment. documented in this encounter Plan of Treatment Upcoming Encounters Date Type Department Care Team (Late st Contact Info) Description 07/24/2024 11:30 AM EDT Telemedicine [facility] [address] [place] [address] Ceci Billings MD [address] [place] [address] documented as of this encounter Visit Diagnoses Not on filedocumented in this encounter Additional Health Concerns Assessment Noted Time PHQ-9 Depression Total Score: 0 10/05/19 24 9:33 AM EDT documented as of this encounter Care Teams Off Premise Service Representative Relationship Specialty Start Date End Date Ceci Billings MD [address] [place] [address] PCP - General Family Medicine 06/02/20 documented as of this encounter
--- OUTSIDE RECORDS SUMMARY | 2024-06-20 16:47 | XMS_ITS | Encounter Summary ---
Author Organization [employer] Address [address] [place] [address] Care Team Providers Care Label Tacker Name Role Phone Ceci Billings MD Primary Care Provide r Reason for Visit * Reason Comments Med Refill Encounter Details Date Type Department Care Team (Late st Contact Info) Description 05/22/2024 Refill [facility] [address] [place] [address] Ceci Billings MD [address] [place] [address] Social History Tobacco Use Types Packs/Day Years [...] 07/24/2024 11:30 AM EDT Telemedicine [facility] [address] [place] [address] Ceci Billings MD [address] [place] [address] documented as of this encounter Visit Diagnoses Not on filedocumented in this encounter Additional Health Concerns Assessment Noted Time PHQ-9 Depression Total Score: 0 10/05/19 24 9:33 AM EDT documented as of this encounter Care Teams Label Tacker Relationship Specialty Start Date End Date Ceci Billings MD [address] [place] [id number] PCP - General Family Medicine 06/02/20 documented as of this encounter
--- OUTSIDE RECORDS SUMMARY | 2024-06-20 16:47 | XMS_ITS | Encounter Summary ---
Author Organization [employer] Address [address] [place] [address] [address] [place] [address] Care Team Providers Care Axle Bearing Polisher Name Role Phone Ceci Billings MD Primary Care Provide r Reason for Visit * Reason Onset Date Comments Prior Authorization 05/08/2024 PARK Reques t: Zepbound Encounter Details Date Type Department Care Team (Late st Contact Info) Description 05/08/2024 Telephone [facility] [address] [place] [address] Ceci Billings MD [address] [place] [address] Prior Authorization (ZHENG NICK Request: Zepbound) Social [...] * Telephone Encounter - Priscilla Bustillos - 05/22/2024 4:19 PM EST PA was resent to for review, fax confirmation received and uploaded into media. * Telephone Encounter - Andrzej Bustillos - 05/17/2024 3:32 PM EST Tc from pt was advised by to contact pcp with informing that pt's shouldn't be calling ins for PA since PA's are in between the ins and the provider. They further stated they cannot give her any information on the PA and pt is requesting a call back to further discuss. Please contact pt at [phone]. (Armenian Speaker) * Telephone Encounter - Priscilla Bustillos - 05/09/2024 4:23 PM EST PA for Zepbound signed and faxed to [facility]. Confirmation received and sent to [facility]. If patient calls to check status on above, please advise them to contact [facility] at [phone]. * Telephone Encounter - Jerry Lockett - 05/08/2024 1:35 PM EST Tc from pt requesting a call back to discuss the status of the PA. Contact pt at [phone] * Telephone Encounter - Priscilla Bustillos - 05/08/2024 11:17 AM EST PA for Zepbound from [employer] placed on PCP desk for signature. documented in this encounter Plan of Treatment Upcoming Encounters Date Type Department Care Team (Late st Contact Info) Description 07/24/2024 11:30 AM EDT Telemedicine [facility] MEDICINE [address] [place] [address] Ceci Billings MD [address] [place] [address] documented as of this encounter Visit Diagnoses Not on filedocumented in this encounter Additional Health Concerns Assessment Noted Time PHQ-9 Depression Total Score: 0 10/05/19 24 9:33 AM EDT documented as of this encounter Care Teams Axle Bearing Polisher Relationship Specialty Start Date End Date Ceci Billings MD [address] [place] [address] PCP - General Family Medicine 06/02/20 documented as of this encounter
== END 2024-06-20 14:06 | disposition home or self-care (01) ==
PROVIDERS: PCP Internal Medicine; Visit Provider Physician Assistant
DX: M17.11 Unilateral primary osteoarthritis, right knee (principal)
CPT/HCPCS: 20610; 99213

== ENCOUNTER → 2024-06-20 13:39 | Outpatient (BNVA) | payer MEDICAID, SELFPAY | PROVIDERS: PCP Internal Medicine; Visit Provider Physician Assistant | DX: M17.11 Unilateral primary osteoarthritis, right knee (principal); M25.562 Pain in left knee | CPT/HCPCS: 20610; 99212; J1010; J2003 ==

== ENCOUNTER 2024-07-03 11:26 | Outpatient (REF) | payer MEDICAID, SELFPAY ==
--- OUTSIDE RECORDS SUMMARY | 2024-07-03 17:24 | XMS_ITS | Clinical Summary ---
Author Organization [facility] Address [address] [place] [address] Phone Care Team Providers Care Electrician Helper Name Role Phone Katrina Sherwood MD Primary Care Provider [phone] Allergies Active Allergy Reactions Criticality Noted Date [...] 9:00 AM EST Office Visit Orthopedic Surgery [place] [address] [phone] Juan Moody DPM Lumbosacral radiculopathy (Primary Dx); [...] 8:30 AM EDT Office Visit Orthopedic Surgery [facility] [address] [phone] Juan Moody DPM [address] [address] Health Maintenance Due Date Last Done Comments [...] Final Result * Lipid panel (08/06/2022) Pathologist [facility] LDL/HDL Ratio 0 Comment:no interpretation, a bstracted Triglycerides 0 mg/dL Comment:no interpretation, a bstracted Cholesterol 0 mg/dL Comment:no interpretation, a bstracted HDL 0 mg/dL Comment:no interpretation, a bstracted LDL Cholesterol 0 mg/dL Comment:no interpretation, a bstracted Blood Venous blood specimen / Unknown Historical Provider LAB BLOOD ORDERABLES Marcelina l Result * Cervical Cancer Screening: HPV (11/09/2021) Pathologist [facility] Cervical Cancer Screening: HPV abstracted Historical Provider HEALTH MAINTENANCE Final Result from Last 3 Months or Most Recently Relevant to Health Maintenance Insurance MEDICAID - [place] Care Teams Electrician Helper Relationship Specialty Start Date End Date Kaela, Katrina, MD [address] [place] [phone] PCP - General Internal Medicine 01/02/14
--- OUTSIDE RECORDS SUMMARY | 2024-07-03 17:25 | XMS_ITS | Encounter Summary ---
Author Organization [employer] Address [address] [facility] 7t [place] [address] Care Team Providers Care Extermination Supervisor Name Role Phone Ceci Billings MD Primary Care Provide r Reason for Visit * Reason Comments Med Refill Encounter Details Date Type Department Care Team (Late st Contact Info) Description 06/22/2024 Refill [facility] 230 [place] [address] Ceci Billigns MD 230 [place] [address] Migraine without aura, not refractory Social History [...] Description 07/24/2024 11:30 AM EDT Telemedicine [facility] 230 [place] [address] Ceci Billings MD 230 [place] [address] documented as of this encounter Visit Diagnoses Diagnosis Migraine without aura, not refractory documented in this encounter Additional Health Concerns Assessment Noted Time PHQ-9 Depression Total Score: 0 10/05/19 24 9:33 AM EDT documented as of this encounter Care Teams Extermination Supervisor Relationship Specialty Start Date End Date Ceci Billings MD 230 [place] [address] PCP - General Family Medicine 06/02/20 documented as of this encounter
--- OUTSIDE RECORDS SUMMARY | 2024-07-03 17:25 | XMS_ITS | Encounter Summary ---
Author Organization [employer] Address [address] [facility] [address] 7t [place] [address] Care Team Providers Care Inseminator Name Role Phone Ceci Billings MD Primary Care Provide r Encounter Details Date Type Department Care Team (Late st Contact Info) Description 07/27/2023 Orders Only [facility] 230 [place] [address] Ceci Billings MD 230 [place] [address] Class 3 severe obesity with serious comorbidity [...] Info) Description 07/24/2024 11:30 AM EDT Telemedicine [facility] 230 [place] [address] Ceci Billings MD 230 [place] [address] documented as of this encounter Visit Diagnoses Diagnosis Class 3 severe obesity with serious comorbidity and body mass index (BMI) of 45.0 to 49.9 in adult, unspecified obesity type (CMS/HCC)- Primary documented in this encounter Additional Health Concerns Assessment Noted Time PHQ-9 Depression Total Score: 5 07/07/19 24 10:12 AM EDT documented as of this encounter Care Teams Inseminator Relationship Specialty Start Date End Date Ceci Billings MD 230 [place], [place] [phone] PCP - General Family Medicine 06/02/20 documented as of this encounter
--- OUTSIDE RECORDS SUMMARY | 2024-07-03 17:25 | XMS_ITS | Clinical Summary ---
Author Organization [employer] Address [address] [facility] 7t [place] [address] Care Team Providers Care Torch Burner Name Role Phone Ceci Billings MD Primary [...] Department Care Team Description 07/03/2024 Orders Only [facility] [address] [place] [address] ProviderChito MD 07/02/2024 Refill [facility] 230 [place] [address] Ceci Billings MD Class 3 severe obesity with serious comorbidity and body mass index (BMI) of 45.0 to 49.9 in adult, unspecified obesity type ([facility]) 06/27/2024 Refill [facility] [address] [place] [address] Ceci Billings MD Lumbar radiculopathy, chronic; Crohn's disease of both small and large intestine without complication ([facility]) 06/22/2024 Refill [facility] [address] [place] [address] Ceci Billings MD Migraine without aura, not refractory 06/11/2024 Refill [facility] [address] [place] [address] Ceci Billings MD Crohn's disease of both small and large intestine without complication ([facility]) 06/07/2024 11:30 AM EST Office Visit [address] [phone] Ceci Billings MD Fibromyalgia (Primary Dx); Class 3 severe obesity with serious comorbidity and body mass index (BMI) of 45.0 to 49.9 in adult, unspecified obesity type ([facility]) 06/07/2024 Travel 05/28/2024 Telephone [facility] [address] [place] [address] [phone] Ceci Billings MD Prior Authorization ( PA Request: Zepbound) 05/25/2024 Patient Outreach [facility] [address] [place] [address] [phone] Ceci Billings MD Pre-visit Planning (SDOH screening negative and tobacco screening negative) 05/22/[address] [address] Ceci Billings MD 05/08/[address] [address] Ceci Billings MD Prior Authorization ( PA Request: Zepbound) 04/24/2024 9:00 AM EST Office Visit [address] [address] Ceci Billings MD Neuropathy (Primary Dx); Lumbar radiculopathy, chronic; Class 3 severe obesity with serious comorbidity and body mass index (BMI) of 45.0 to 49.9 in adult, unspecified obesity type (CMS/HCC); Insomnia, unspecified type; Heartburn; Migraine without aura, not refractory 04/24/2024 Travel 04/23/2024 Orders Only [address] [address] Ceci Billings MD 04/23/2024 Travel 04/12/2024 Patient Outreach [address] [address] Ceci Billings MD Pre-visit Planning (SDOH screening [...] Info) Description 07/24/2024 11:30 AM EDT Telemedicine [facility] [address] [place] [address] Ceci Billings MD 230 [place] [address] Health Maintenance Due Date Last Done Comments [...] EST Narrative 04/04/2023 4:30 PM EST ? [facility] ? [address] ?[place], [place] [address] ? Mammography Report ? Signed ? Patient: Windy Mcfarlane ?MR# ?? : [id number] ? : 1975 ?Acct:[id number] ? Age/Sex: 47 / F ?ADM Date: 04/04/23 ? Loc: HO.MAMMO ? Attending Dr: Sotero Tyson MD ? Ordering Physician: Cuauhtemoc Tolliver MD ?Results: 2Benig ?? n Findings ? Date of Service: 04/04/23 ?Follow Up: 1 Year From Orig ?? inal Mammogram ? Procedure(s): MM tomosynthesis diagnostic BI ?? Accession Number(s): [id number] ? cc: Ceci Billings MD; Cuauhtemoc Tolliver [...] ?04/04/237 ? DD/ 1540 ? TD/TT: ? Compensation/Benefits Specialist: ? Procedure Note Dontammieinterpreter, Image - 04/04/2023 [facility] [address] [place] [address] Mammography Report Signed Patient: Miladis Mcfarlane# : [id number] : 1975Acct:[id number] Age/Sex: 47 / FADM Date: 04/04/23 Loc: [facility] Attending Dr: Sotero Tyson MD Ordering Physician: Cuauhtemoc Tolliver MDResults: 2Benig n Findings Date of Service: 04/04/23Follow Up: 1 Year From Orig inal Mammogram Procedure(s): MM tomosynthesis diagnostic BI Accession Number(s): [id number] cc: Ceci Billings MD; Cuauhtemoc Tolliver MD [...] in OV> 04/04/23 1627 DD/ 1540 TD/TT: Compensation/Benefits Specialist: [facility] External Provider IMG BI PROCEDURES Final Result * Lipid Panel, Standard (08/06/2022 10:02 AM EDT) Cholesterol, Total 144 <200 mg/dL [facility] [place] [facility] HDL Cholesterol 58 > OR = 50 mg/dL [facility] [place] [facility] Triglycerides 49 <150 mg/dL [facility] [place] [facility] LDL Cholesterol 72 mg/dL (calc) [facility] [place] [facility] Comment: Reference range: <100 Desirable range <100 mg/dL for primary prevention; ?? <70 mg/dL for patients with CHD or diabetic patients with > or = 2 CHD risk factors. LDL-C is now calculated using the Blayne-Louise calculation, which is a validated novel method providing better accuracy than the Friedewald equation in the estimation of LDL-C. Blayne SS et al. NICHELLE. 2013;310(19): 2185-5715 (http://education.[employer]/faq/IMO820) Chol/HDLC Ratio 2.5 <5.0 (calc) [facility] [place] [facility] Non-HDL Cholesterol 86 <130 mg/dL (calc) [facility] [place] [facility] Comment: For patients with diabetes plus 1 major ASCVD risk factor, treating to a non-HDL-C goal of <100 mg/dL (LDL-C of <70 mg/dL) is considered a therapeutic option. Blood Venous blood specimen / Unknown 08/06/2022 10:02 AM EDT 08/06/2022 10:02 AM EDT Narrative [facility] - 08/07/2022 2:37 AM EDT FASTING:NO FASTING: NO Ceci Peacock MD LAB BLOOD ORDERABLES Final Result [facility] [address], [place] [address] [facility] [place] [facility] [address] [place] [address] * HPV E6/E7 RFLX JESSICA 16 18/45 (11/09/2021 2:40 PM EDT) HPV mRNA E6/E7 rflx Not Detected Not Detected [facility] Comment: Methodology: Director Ehs-Mediated Amplification This assay detects E6/E7 viral messenger RNA (mRNA) from 14 high-risk HPV types (16,18,31,33,35,39,45,51,52,56,58,59,66,68). Cervical sources are required for HPV testing. If a vaginal source from a patient who has had a total hysterectomy with removal of cervix was submitted, please contact the testing laboratory for alternative testing options. For additional information, please refer to http://education.mSchool/faq/CKL449q1 (This link if provided for information/ educational purposes only.) THIS TEST WAS PERFORMED AT: [facility] [address] [place], [place] ??[phone] TIN DICKEY MD 11/09/2021 2:40 PM EDT Kylee Rodriguez HISTORICAL/NON ORDERABLE LABS Fi nal Result [facility] [address] from Last 3 Months or Most Recently Relevant to Health Maintenance Insurance [facility] C3 HSN FULL Care Teams Torch Burner Relationship Specialty Start Date End Date Ceci Billings MD [address] [place] [address] PCP - General Family Medicine 06/02/20
--- OUTSIDE RECORDS SUMMARY | 2024-07-03 17:25 | XMS_ITS | Encounter Summary ---
Author Organization [employer] Address [address] [facility] [address] 7t [place] [address] Care Team Providers Care Teasel Gig Operator Name Role Phone Ceci Billings MD Primary Care Provide r Reason for Visit * Reason Comments Med Refill Encounter Details Date Type Department Care Team (Late st Contact Info) Description 06/11/[address] [facility] [address] [place] [address] Ceci Billings MD 230 [place] [address] Crohn's disease of both small and large [...] Description 07/24/2024 11:[address] [facility] [address] [place] [address] Ceci Billings MD 230 [place] [address] documented as of this encounter Visit Diagnoses Diagnosis Crohn's disease of both small and large intestine without complication (CMS/HCC) documented in this encounter Additional Health Concerns Assessment Noted Time PHQ-9 Depression Total Score: 0 10/05/19 24 9:33 AM EDT documented as of this encounter Care Teams Teasel Gig Operator Relationship Specialty Start Date End Date Ceci Billings MD [address] [place] [address] PCP - General Family Medicine 06/02/20 documented as of this encounter
--- OUTSIDE RECORDS SUMMARY | 2024-07-03 17:25 | XMS_ITS | Encounter Summary ---
Author Organization [employer] Address [address] [facility] [address] 7t [place] [address] Care Team Providers Care Aeronautics Commission Director Name Role Phone Ceci Billings MD Primary Care Provide r Encounter Details Date Type Department Care Team (Late st Contact Info) Description 06/07/2024 11:30 AM EST Office Visit [facility] 230 [place] [address] Ceci Billings MD 230 [place] [address] Fibromyalgia (Primary Dx); Class 3 severe obesity [...] (BMI) of 45.0 to 49.9 in adult (CMS/[facility]) Other constipation Fibromyalgia No family history on [...] THREE TIMES DAILY ASNEEDED 18 g 3 mgkeqgzivc-xpnkrirrpboxw-fdkunuhk 50-325-40 MG tablet Take 1 tablet by [...] (BMI) of 45.0 to 49.9 in adult (CMS/[facility]) documented in this encounter Miscellaneous Notes * Assessment & Plan Note - Ceci Peacock MD - 06/07/2024 3:24 PM EST Associated Problem(s): Class 3 severe obesity with serious comorbidity and body mass index (BMI) of45.0 to 49.9 in adult ([facility]) Extensive counseling about healthy diet and exercise [...] Info) Description 07/24/2024 11:30 AM EDT Telemedicine [facility] 230 [place] [address] Ceci Billings MD [address] [place] [address] documented as of this encounter Visit Diagnoses Diagnosis Fibromyalgia- Primary Unspecified myalgia and myositis Class 3 severe obesity with serious comorbidity and body mass index (BMI) of 45.0 to 49.9 in adult, unspecified obesity type (CMS/HCC) documented in this encounter Additional Health Concerns Assessment Noted Time PHQ-9 Depression Total Score: 0 10/05/19 24 9:33 AM EDT documented as of this encounter Care Teams Aeronautics Commission Director Relationship Specialty Start Date End Date Ceci Billings MD [address] [place] [address] PCP - General Family Medicine 06/02/20 documented as of this encounter
--- OUTSIDE RECORDS SUMMARY | 2024-07-03 17:25 | XMS_ITS | Encounter Summary ---
Author Organization [employer] Address [address] [facility] [address] 7t [place] [address] Care Team Providers Care Voice Network Engineer Name Role Phone Ceci Billings MD Primary Care Provide r Reason for Visit * Reason Comments Med Refill Encounter Details Date Type Department Care Team (Late st Contact Info) Description 11/30/2023 Refill [facility] 230 [place] [address] Ceci Billings MD 230 [place] [address] Muscle spasm Social History Tobacco Use Types [...] 07/24/2024 11:30 AM EDT Telemedicine [facility] [address] [place] [address] Ceci Billings MD [address] [place] [address] documented as of this encounter Visit Diagnoses Diagnosis Muscle spasm Spasm of muscle documented in this encounter Additional Health Concerns Assessment Noted Time PHQ-9 Depression Total Score: 0 10/05/19 24 9:33 AM EDT documented as of this encounter Care Teams Voice Network Engineer Relationship Specialty Start Date End Date Ceci Billings MD [address] [place] [address] PCP - General Family Medicine 06/02/20 documented as of this encounter
--- OUTSIDE RECORDS SUMMARY | 2024-07-03 17:25 | XMS_ITS | Encounter Summary ---
Author Organization [employer] Address [address] [place] [address] Care Team Providers Care Route Delivery Supervisor Name Role Phone Ceci Billings MD [...] t he electric, gas, oil or water [employer] threatened to shut off services in your [...] Info) Description 07/24/2024 11:30 AM EDT Telemedicine [facility] [address] [place] [address] Ceci Billings MD [address] [place] [address] documented as of this encounter Visit Diagnoses Not on filedocumented in this encounter Additional Health Concerns Assessment Noted Time PHQ-9 Depression Total Score: 0 10/05/19 24 9:33 AM EDT documented as of this encounter Care Teams Route Delivery Supervisor Relationship Specialty Start Date End Date Ceci Billings MD [address] [place] [address] PCP - General Family Medicine 06/02/20 documented as of this encounter
--- OUTSIDE RECORDS SUMMARY | 2024-07-03 17:25 | XMS_ITS | Encounter Summary ---
Author Organization [employer] Address [address] [facility] 7t [place] [address] Care Team Providers Care Lathe Machinist Name Role Phone Ceci Billings MD Primary Care Provide r Reason for Visit * Reason Comments Med Refill Encounter Details Date Type Department Care Team (Late Contact Info) Description 04/30/2022 Refill [facility] [address] [place] [address] Jesús Vale MD [address] [place] [address] Influenza-like illness Social History Tobacco Use Types [...] Info) Description 07/24/2024 11:30 AM EDT Telemedicine [facility] [address] [place] [address] Ceci Billings MD [address] [place] [address] documented as of this encounter Visit Diagnoses Diagnosis Influenza-like illness documented in this encounter Care Teams Lathe Machinist Relationship Specialty Start Date End Date Ceci Billings MD [address] [place] [address] PCP - General Family Medicine 06/02/20 documented as of this encounter
--- OUTSIDE RECORDS SUMMARY | 2024-07-03 17:25 | XMS_ITS | Encounter Summary ---
Author Organization [employer] Address [address] 7[address] [place] [address] Care Team Providers Care Rouge Mixer Name Role Phone Ceci Billings MD Primary Care Provide r Reason for Visit * Reason Comments Med Refill Encounter Details Date Type Department Care Team (Late st Contact Info) Description 01/03/2024 Refill [facility] [address] [place] [address] Ceci Billings MD [address] [place] [address] Social History Tobacco Use Types Packs/Day Years [...] EDT Telemedicine [facility] [address] [place] [address] Ceci Billings MD [address] [place] [address] documented as of this encounter Visit Diagnoses Not on filedocumented in this encounter Additional Health Concerns Assessment Noted Time PHQ-9 Depression Total Score: 0 10/05/19 24 9:33 AM EDT documented as of this encounter Care Teams Rouge Mixer Relationship Specialty Start Date End Date Ceci Billings MD [address] [place] [phone] PCP - General Family Medicine 06/02/20 documented as of this encounter
--- OUTSIDE RECORDS SUMMARY | 2024-07-03 17:25 | XMS_ITS | Encounter Summary ---
Author Organization [employer] Address [address] 7[address] [place] [address] Care Team Providers Care Can Vacuum Tester Name Role Phone Ceci Billings MD Primary Care Provide r Reason for Visit * Reason Onset Date Comments Medication Question 03/12/2024 Encounter Details Date Type Department Care Team ([facility] Contact Info) Description 03/12/2024 Telephone [facility] [address] [place] [address] Ceci Billings MD [address] [place] [address] Medication Question Social History Tobacco Use Types [...] questions on med PA . Callback number [phone] documented in this encounter Plan of Treatment Upcoming Encounters Date Type Department Care Team (Late st Contact Info) Description 07/24/2024 11:30 AM EDT Telemedicine [facility] [address] [place] [address] Ceci Billings MD [address] [place] [address] documented as of this encounter Visit Diagnoses Not on filedocumented in this encounter Additional Health Concerns Assessment Noted Time PHQ-9 Depression Total Score: 0 10/05/19 24 9:33 AM EDT documented as of this encounter Care Teams Can Vacuum Tester Relationship Specialty Start Date End Date Ceci Billings MD [address] [place] [address] PCP - General Family Medicine 06/02/20 documented as of this encounter
--- OUTSIDE RECORDS SUMMARY | 2024-07-03 17:25 | XMS_ITS | Encounter Summary ---
Author Organization [employer] Address [address] [facility] [address] [place] [address] Care Team Providers Care Spoon Maker Name Role Phone Ceci Billings MD Primary Care Provide r Reason for Visit * Reason Onset Date Comments Medication Question 07/02/2024 Encounter Details Date Type Department Care Team (Late st Contact Info) Description 07/02/[address] [facility] [address] [place] [address] Ceci Billings MD [address] [place] [address] Class 3 severe obesity with serious comorbidity [...] be 5 mg now. Contact pt at [phone] documented in this encounter Plan of Treatment Upcoming Encounters Date Type Department Care Team (Late st Contact Info) Description 07/24/2024 11:30 AM EDT Telemedicine [address] [address] Ceci Billings MD [address] [place] [address] documented as of this encounter Visit Diagnoses Diagnosis Class 3 severe obesity with serious comorbidity and body mass index (BMI) of 45.0 to 49.9 in adult, unspecified obesity type (CMS/HCC) documented in this encounter Additional Health Concerns Assessment Noted Time PHQ-9 Depression Total Score: 0 10/05/19 24 9:33 AM EDT documented as of this encounter Care Teams Spoon Maker Relationship Specialty Start Date End Date Ceci Billings MD [address] [place] [address] PCP - General Family Medicine 06/02/20 documented as of this encounter
--- OUTSIDE RECORDS SUMMARY | 2024-07-03 17:25 | XMS_ITS | Encounter Summary ---
Author Organization [employer] Address [address] [address] 7[address] [place] [address] Care Team Providers Care Auto Body Repairman Name Role Phone Ceci Billings MD Primary Care Provide r Reason for Visit * Reason Comments Med Refill Encounter Details Date Type Department Care Team (Late st Contact Info) Description 06/27/2024 Refill [facility] [address] [place] [address] Ceci Billings MD [address] [place] [address] Lumbar radiculopathy, chronic; Crohn's disease of both [...] Info) Description 07/24/2024 11:30 AM EDT Telemedicine [facility] [address] [place] [address] Ceci Billings MD [address] [place] [address] documented as of this encounter Visit Diagnoses Diagnosis Lumbar radiculopathy, chronic Crohn's disease of both small and large intestine without complication (CMS/HCC) documented in this encounter Additional Health Concerns Assessment Noted Time PHQ-9 Depression Total Score: 0 10/05/19 24 9:33 AM EDT documented as of this encounter Care Teams Auto Body Repairman Relationship Specialty Start Date End Date Ceci Billings MD [address] [place] [address] PCP - General Family Medicine 06/02/20 documented as of this encounter
--- OUTSIDE RECORDS SUMMARY | 2024-07-03 17:25 | XMS_ITS | Encounter Summary ---
Author Organization [employer] Address [address] [place] [address] 7t [place] [address] Care Team Providers Care Wedger Machine Name Role Phone Ceci Billings MD Primary Care Provide r Reason for Visit * Reason Comments Med Refill Encounter Details Date Type Department Care Team (Late st Contact Info) Description 12/02/2022 Refill [facility] [address] [place] [address] Yaniv Pelaez MD [address] [place] [address] Insomnia, unspecified type Social History Tobacco Use [...] Info) Description 07/24/2024 11:30 AM EDT Telemedicine [facility] [address] [place] [address] Ceci Billings MD [address] [place], [place] [phone] documented as of this encounter Visit Diagnoses Diagnosis Insomnia, unspecified type documented in this encounter Additional Health Concerns Assessment Noted Time PHQ-9 Depression Total Score: 0 08/07/19 23 9:07 AM EDT documented as of this encounter Care Teams Wedger Machine Relationship Specialty Start Date End Date Ceci Billings MD [address] [facility] [place] [address] PCP - General Family Medicine 06/02/20 documented as of this encounter
--- OUTSIDE RECORDS SUMMARY | 2024-07-03 17:25 | XMS_ITS | Encounter Summary ---
Author Organization [employer] Address [address] [place] [address] 7t [place] [address] Care Team Providers Care Teletypewriter Operator Name Role Phone Ceci Billings MD Primary Care Provide r Reason for Visit * Reason Onset Date Comments Prior Authorization 05/28/2024 PARK Reques t: [employer]ep[employer] Encounter Details Date Type Department Care Team (Late st Contact Info) Description 05/28/2024 Telephone [facility] [address] [place] [address] Ceci Billings MD [address] [place] [address] Prior Authorization (ZHENG NICK Request: [employer]ep[employer]) Social [...] PA for [employer] [facility]. Confirmation received and sent to scan. If patient calls to check status on above, please advise them to contact [facility] at [phone]. * Telephone Encounter - Priscilla Bustillos - 05/28/2024 10:31 AM EST PA for Zep[employer] from [facility] placed on PCP desk for signature. Updated information for contraindication to Phemtermine had been added to request. documented in this encounter Plan of Treatment Upcoming Encounters Date Type Department Care Team (Late st Contact Info) Description 07/24/2024 11:30 AM EDT Telemedicine [facility] [address] [place] [address] Ceci Billings MD [address] [place] [address] documented as of this encounter Visit Diagnoses Not on filedocumented in this encounter Additional Health Concerns Assessment Noted Time PHQ-9 Depression Total Score: 0 10/05/19 24 9:33 AM EDT documented as of this encounter Care Teams Teletypewriter Operator Relationship Specialty Start Date End Date Ceci Billings MD [address] [place] [address] PCP - General Family Medicine 06/02/20 documented as of this encounter
--- OUTSIDE RECORDS SUMMARY | 2024-07-03 17:25 | XMS_ITS | Encounter Summary ---
Author Organization [employer] Address [address] [place] [address] [address]t [place] [address] Care Team Providers Care Bolting Machine Operator Name Role Phone Ceci Billings MD Primary Care Provide r Encounter Details Date Type Department Care Team (Late st Contact Info) Description 05/27/2022 Telephone [facility] [address] [place] [address] Ceci Billings MD [address] [place] [address] Social History Tobacco Use Types Packs/Day Years [...] Info) Description 07/24/2024 11:30 AM EDT Telemedicine [facility] [address] [place] [address] Ceci Billings MD [address] [place] [address] documented as of this encounter Visit Diagnoses Not on filedocumented in this encounter Care Teams Bolting Machine Operator Relationship Specialty Start Date End Date Ceci Billings MD [address] [place] [address] PCP - General Family Medicine 06/02/20 documented as of this encounter
--- OUTSIDE RECORDS SUMMARY | 2024-07-03 17:25 | XMS_ITS | Encounter Summary ---
Author Organization [employer] Address [address] [facility] [facility] [address] 7[address] [place] [address] Care Team Providers Care Rn Support Services Name Role Phone Ceci Billings MD Primary Care Provide r Encounter Details Date Type Department Care Team (Late st Contact Info) Description 07/03/2024 Orders Only [facility] [address] [place] [address] Provider, MD [place] Social History Tobacco Use [...] Info) Description 07/24/2024 11:30 AM EDT Telemedicine [facility] [address] [place] [address] Ceci Billings MD [address] [place] [address] documented as of this encounter Procedures Procedure [...] documented as of this encounter Care Teams Rn Support Services Relationship Specialty Start Date End Date Ceci Billings MD [address] [place] [address] PCP - General Family Medicine 06/02/20 documented as of this encounter
--- OUTSIDE RECORDS SUMMARY | 2024-07-03 17:25 | XMS_ITS | Patient Health Record ---
Author Organization [facility] Address [address] [place] [address] Care Team Providers Care Larriman Helper Name Role Phone Reymundo WEEMS, Summer Primary Care Provider Emerson Sauceda [phone] Allergies Allergen (clinical drug ingredient) Drug/Non Drug Allergy documented on EMR Reaction Allergy Type Onset Date Status vancomycin Vancomycin HCl Unknown Drug Allergy A ctive ciprofloxacin cipro (uncoded) Unknown Allergy Active Results Component Value Reference Range Notes Ur Preg Test Reviewed date:08/23/2023 09:35:47 AM Interpretation: Performing Lab:[facility], [address] [place] [phone] Notes/Report: Urine NEGATIVE NEGATIVE This test was developed to detect early . False negative results may occur after the 5th - 7th week of when using this test method. If clinically indicated, consider a serum hCG. Pathology Reviewed date:02/03/2024 10:57:13 AM Interpretation: Performing Lab:[facility], [address] [place] [phone] Notes/Report: -- ---- Name: Stephie Mcfarlane Age/Sex: 47/F : 1975 Unit#: [id number] Attend Dr: Emerson Canales Re08/23/23 Status : [facility] Location: [facility] Disch: -- ---- SPEC : [id number] RECD : 08/23/23-932 STATUS: TATO MARLOW NUM: [id number] BERNARDO: 08/23/23-[address] [facility] [address]: Emerson Canales ENTERED: 08/23/23- 47 SP TYPE: Surgical OTHR DR: Ceci Billings MD ORDERED: HE Stain/21 , Gross Micro L4/7, IHC, Special st. 2/2, H. pylori, AB/PAS/2 Diagnosis A. Duodenum, descending, biopsy: Duodenal mucosa with preserved villi and no specific change; no evidence of celiac disease. B. Gastric antrum, biopsy: Gastric antral mucosa with minimal chronic inactive gastritis; negative for intestinal metaplasia and dysplasia (see comment). C. Colon, ascending, biopsy: Colonic mucosa with minor crypt distortion, small lymphoid aggregates and scattered pigmented lamina propria macrophages, otherwise no specific change; no active colitis, granulomas or dysplasia. D. Colon, transverse , biopsy: Colonic mucosa with minor crypt distortion, small lymphoid aggregates and scattered pigmented lamina propria macrophages, otherwise no specific change; no active colitis, granulomas or dysplasia. E. Colon, descending , biopsy: Colonic mucosa with minor crypt distortion, reactive lymphoid follicle, a nd occasional pigmented lamina propria macrophages, otherwise no specific change; no active colitis, granulomas or dysplasia. F. Colon, sigmoid, biopsy: Colonic mucosa with minor crypt distortion, lymphoid aggregates and occasional pigmented lamina propria macrophages, otherwise no specific change; no active colitis, granulomas or dysplasia. G. Colon, rectum, biopsy: Colonic mucosa with minor crypt distortion, lymphoid aggregates, occasion al pigmented lamina propria macrophages, and fragments consistent with hyperplastic polyps; no active colitis, granulomas or dysplasia. Comment: (B): Immunostain for H. pylori is pending; addendum to follow. Clinical History Pre-Op Dx: Reflux, Crohn's, screening Post-Op Dx: Hiatal hernia, gastritis, hx of Crohn's disease Microscopic Description Microscopic sections reviewed. AB/PAS on A is negative for evidence of chronic injury. AB/PAS on B is negative for intestinal metaplasia. Control stains appropriately. CONTINUED ON NEXT PAGE -- ---- Name: Stephie Mcfarlane Age/Sex: 47/F : 1975 Unit#: [id number] Attend Dr: Emerson Canales Re08/23/23 Status : [facility] Location: [facility] Disch: -- ---- SPEC : [id number] RECD : 08/23/23 STATUS: TATO MARLOW NUM: [id number] BERNARDO: 08/23/[address] [facility] [address]: Emerson Canales ENTERED: 08/23/23- 48 SP TYPE: Surgical OTHR DR: Ceci Billings MD ORDERED: HE Stain/21 , Gross Micro L4/7, IHC, Special st. 2/2, H. pylori, AB/PAS/2 Material Received A. Descending duodenum, r/o celiac's B. Gastric antrum C. Ascending colon - hx of Crohn's disease, r/o dysplasia D. Transverse colon - hx of Crohn's disease, r/o dysplasia E. Descending colon - hx of Crohn's disease, r/o dysplasia F. Sigmoid colon - h x of Crohn's disease, r/o dysplasia G. Rectum - hx of Crohn's disease, r/o dysplasia Gross Description Received in 7 parts. Part A: Received in formalin labeled ?descending duodenum? are 4 soares-pink irregular tissue fragments each measuring 0.3 cm, submitted in toto in a cassette labeled A. Part B: Received in formalin labeled ?gastric antrum? are 3 soares rectangular tissue fragments ranging fr om 0.35-0.45 cm, submitted in toto in a cassette labeled B. Part C: Received in formalin labeled ?ascending colon? are several soares and soares-pink irregular tissue fragments ranging from 0.1 to 0.25 cm, submitted in toto in a cassette labeled C. Part D: Received in formalin labeled ?transverse colon? are several soares and soares-pink irregular and rectangular tissue fragments ranging from 0.1-0.35 cm, submitted in toto in a cassette labeled D. Part E: Received in formalin labeled ?descending colon? are several soares and soares-pink irregular and rectangular tissue fragments ranging from 0.1-0.25 cm, submitted in toto in a cassette labeled E. Part F: Received in formalin labeled ?sigmoid colon? are several soares irregular and rectangular tissue fragments ranging from 0.2-0.4 cm, submitted in toto in a cassette labeled F. Part G: Received in formalin labeled ?rectum? are 5 soares irregular and rectangular tissue fragments ranging fr om 0.4 to 1.2 cm in greatest dimension, submitted in toto in a cassette labeled G. CEDS Special studies ordered and performed: Immunostain for H. pylori on B1; AB/PAS stains on A1 and B1. CONTINUED ON NEXT PAGE -- ---- Name: Stephie Mcfarlane Age/Sex: 47/F : 1975 Unit#: [id number] Attend Dr: Emerson Canales Re08/23/23 [place] [facility] [place] [place] [facility] Disch: -- ---- SPEC : [id number] RECD : 08/23/23 STATUS: TATO MARLOW NUM: [id number] BERNARDO: 08/23/[address] [facility] [address]: Emerson Canales ENTERED: 08/23/23- SP TYPE: Surgical OTHR DR: Ceci Billings MD ORDERED: HE Stain/ , Gross Micro L4/7, IHC, Special st. 2/2, H. pylori, AB/PAS/2 Copies To: Yi Billings MD [address] [place] [id number] Emerson Canales [address] [place] [address] [address] [place] [address] -- ---- Signed (signature on file) Carin 08/24/23 1720 -- ---- END OF REPORT Pathology Reviewed date:02/03/2024 10:57:37 AM Interpretation: Performing Lab:[facility], [address] [facility], [place] [address] Notes/Report: -- ---- Name: Stephie Mcfarlane Age/Sex: 47/F : 1975 Unit#: [id number] Attend Dr: Emerson Canales Re08/23/23 Status : [facility] Location: [facility] Disch: -- ---- SPEC : [id number] RECD : 08/23/23 STATUS: TATO MARLOW NUM: [id number] BERNARDO: 08/23/[address] [facility] [address]: Emerson Canales ENTERED: 08/23/23 48 SP TYPE: Surgical OTHR DR: Ceci Billings MD ORDERED: HE Stain/21 , Gross Micro L4/7, IHC, Special st. 2/2, H. pylori, AB/PAS/2 Addendum Addendum 1 Entered: 08/29/23 Immunostain for H. pylori is non-reactive. No change is made to the diagnosis. Addendum Signed (signature on file) Brendon Rodriguez MD 08/29/23 1313 -- ---- Diagnosis A. Duodenum, descending, biopsy: Duodenal mucosa with preserved villi and no specific change; no evidence of celiac disease. B. Gastric antrum, biopsy: Gastric antral mucosa with minimal chronic inactive gastritis; negative for intestinal metaplasia and dysplasia (see comment). C. Colon, ascending, biopsy: Colonic mucosa with minor crypt distortion, small lymphoid aggregates and scattered pigmented lamina propria macrophages, otherwise no specific change; no active colitis, granulomas or dysplasia. D. Colon, transverse , biopsy: Colonic mucosa with minor crypt distortion, small lymphoid aggregates and scattered pigmented lamina propria macrophages, otherwise no specific change; no active colitis, granulomas or dysplasia. E. Colon, descending , biopsy: Colonic mucosa with minor crypt distortion, reactive lymphoid follicle, a nd occasional pigmented lamina propria macrophages, otherwise no specific change; no active colitis, granulomas or dysplasia. F. Colon, sigmoid, biopsy: Colonic mucosa with minor crypt distortion, lymphoid aggregates and occasional pigmented lamina propria macrophages, otherwise no specific change; no active colitis, granulomas or dysplasia. G. Colon, rectum, biopsy: Colonic mucosa with minor crypt distortion, lymphoid aggregates, occasion al pigmented lamina propria macrophages, and fragments consistent with hyperplastic polyps; no active colitis, granulomas or dysplasia. Comment: (B): Immunostain for H. pylori is pending; addendum to follow. CONTINUED ON NEXT PAGE -- ---- Name: Stephie Mcfarlane Age/Sex: 47/F : 1975 Unit#: [id number] Attend Dr: Emerson Canales Re08/23/23 Status : [facility] Location: [facility] Disch: -- ---- SPEC : [id number] RECD : 08/23/23 STATUS: TATO MARLOW NUM: [id number] BERNARDO: 08/23/[address] [facility] [address]: Emerson Canales ENTERED: 08/23/23 48 SP TYPE: Surgical OTHR DR: Ceci Billings MD ORDERED: HE Stain/ , Gross Micro L4/7, IHC, Special st. 2/, H. pylori, AB/PAS/2 Clinical History Pre-Op Dx: Reflux, Crohn's, screening Post-Op Dx: Hiatal hernia, gastritis, hx of Crohn's disease Microscopic Description Microscopic sections reviewed. AB/PAS on A is negative for evidence of chronic injury. AB/PAS on B is negative for intestinal metaplasia. Control stains appropriately. Material Received A. Descending duodenum, r/o celiac's B. Gastric antrum C. Ascending colon - hx of Crohn's disease, r/o dysplasia D. Transverse colon - hx of Crohn's disease, r/o dysplasia E. Descending colon - hx of Crohn's disease, r/o dysplasia F. Sigmoid colon - h x of Crohn's disease, r/o dysplasia G. Rectum - hx of Crohn's disease, r/o dysplasia Gross Description Received in 7 parts. Part A: Received in formalin labeled ?descending duodenum? are 4 soares-pink irregular tissue fragments each measuring 0.3 cm, submitted in toto in a cassette labeled A. Part B: Received in formalin labeled ?gastric antrum? are 3 soares rectangular tissue fragments ranging fr om 0.35-0.45 cm, submitted in toto in a cassette labeled B. Part C: Received in formalin labeled ?ascending colon? are several soares and soares-pink irregular tissue fragments ranging from 0.1 to 0.25 cm, submitted in toto in a cassette labeled C. Part D: Received in formalin labeled ?transverse colon? are several soares and soares-pink irregular and rectangular tissue fragments ranging from 0.1-0.35 cm, submitted in toto in a cassette labeled D. Part E: Received in formalin labeled ?descending colon? are several soares and soares-pink irregular and rectangular tissue fragments ranging from 0.1-0.25 cm, submitted in toto in a cassette labeled E. Part F: Received in formalin labeled ?sigmoid colon? are several soares irregular and rectangular tissue fragments ranging from 0.2-0.4 cm, submitted in toto in a cassette CONTINUED ON NEXT PAGE -- ---- Name: Stephie Mcfarlane Age/Sex: 47/F : 1975 Unit#: [id number] Attend Dr: Emerson Canales Re08/23/23 Status : [facility] Location: [facility] Disch: -- ---- SPEC : [id number] RECD : 08/23/23 STATUS: TATO MARLOW NUM: [id number] BERNARDO: 08/23/[address] [facility] [address]: Emerson Canales ENTERED: 08/23/23- 47 SP TYPE: Surgical OTHR DR: Ceci Billings MD ORDERED: HE Stain/ , Gross Micro L4/7, IHC, Special st. 2/2, H. pylori, AB/PAS/2 Gross Description (Continued) labeled F. Part G: Received in formalin labeled ?rectum? are 5 soares irregular and rectangular tissue fragments ranging fr om 0.4 to 1.2 cm in greatest dimension, submitted in toto in a cassette labeled GFidel JUDGE Special studies ordered and performed: Immunostain for H. pylori on B1; AB/PAS stains on A1 and B1. Copies To: Yi Billings MD [address] [place] [address] [place] [address] -- ---- Signed (signature on file) Carin Coats 08/24/23 1720 (signature on file) Brendon Rodriguez MD 08/29/23 1313 -- ---- END OF REPORT Complete Blood Count Auto Di ff Reviewed date:04/09/2024 10:38:42 PM Interpretation: Performing Lab:[facility], [address] [place] [address], [place] [address] Notes/Report: White Blood Count 5.2 4.8-10.8 X10*3/uL Red Blood Count 4.51 4.20-5.50 X10*6/uL Hemoglobin 12.6 12.0-16.0 g/dl Hematocrit 40.1 37.0-47.0 % Mean Corpuscular Volume 88.9 80.0-98.0 fL Mean Corpuscular Hemoglobin 27.9 27.0-33.0 pg Mean Corpuscular HGB Conc 31.4 31.0-35.0 g/dl Red Cell Distribution Width 13.2 11.0-16.0 % Platelet Count 224 160-400 X10*3/uL Mean Platelet Volume 11.3 9.4-12.3 fL Neutrophils Percent Auto 52.8 45-73 % Imm Gran Pct Auto 0.4 0.0-0.4 % Lymphocytes Percent Auto 31.0 20-40 % Monocytes Percent Auto 8.7 2-11 % Eosinophils Percent Auto 6.7 0-4 % Basophils Percent Auto 0.4 0-2 % NRBC Pct Auto 0.0 0.0-0.2 /100WBC Neutrophils Absolute Auto 2.8 2.0-8.3 x10*3/u L Imm Gran Abs Auto 0.02 0.00-0.03 X10*3/uL Lymphocytes Absolute Auto 1.6 1.2-4.9 X10*3/u L Monocytes Absolute Auto 0.5 0.1-1.2 X10*3/uL Eosinophils Absolute Auto 0.4 0.0-0.4 X10*3/u L Basophils Absolute Auto 0.0 0.0-0.2 X10*3/uL NRBC Abs Auto 0.000 0.0-0.012 X10*3/uL Liver Panel Reviewed date:04/04/2024 01:40:57 PM Interpretation: Performing Lab:[address] [phone] Notes/Report: Bilirubin Total 0.2 0.0-1.0 mg/dL Bilirubin Direct < 0.2 0.0-0.5 mg/dL Aspartate Amino Transferase 22 5-31 U/L Alanine Aminotransferase 34 0-31 U/L Total Protein 7.2 6.5-8.0 g/dL Albumin Level 3.7 3.5-5.0 g/dL Alkaline Phosphatase 71 39-117 U/L Dakota KEMPT Reviewed date:06/05/2024 05:15:56 PM Interpretation: Performing Lab:[address] [phone] Notes/Report: Dakota KEPMT SEE NOTE SEE SCA NNED RESULTS IN EMR Reason For Referral Referring Provider First Name Summer Referring Provider Last Name Reymundo Referred Organization [facility] Referred Provider Emerson Canales Referred Address [address] [place] [address],[place] [address],[place],[address],[place] Referred Provider Specialty [facility] General Notes Elvia Ca 024 11:48:27 AM EDT > requested a [facility] referral for procedure with Dr. Canales on 08-23-2023 current referral expiers 08-20-2023 Referral Priority Routine Medications Medication SIG (Take, Route, Frequency, Duration) Notes Start Date End Date Status Stelara 90 MG/ML 1 injection every 4 weeks Subcutaneous Every 4 weeks for 28 days Active Fluconazole 150 MG 1 tablet Orally Take 1 on Day #1, 1 on Day #2, and 1 on Day #7 for 7 days Active Tylenol 325 MG 1 tablet as needed Orally prn Active Propranolol HCl 20 MG TAKE 1 TABLET BY M OUTH EVERY DAY Oral for 90 Active Dicyclomine HCl 10.0 Milligram Take 1 or 2 capsules QID prn abdominal cramps and/or diarrhea Active Baclofen 20 MG/20ML Intrathecal Three times a day Active Imodium A-D 2 MG 1 or 2 tablets Orall y Every 4 to 6 hours as needed for diarrhea for 30 days 08/14/2022 Active Ambien 10 MG 1 tablet at bedtime as needed Orally Once a day Active Zepbound 2.5 MG/0.5ML 0.5 mL Subcutaneou s for 30 day(s) Active Bentyl 10 MG 1 tablet Orally 1-2 QID prn abdominal cramps/discomfort 07/24/2013 Active Pantoprazole Sodium 40 MG take 1 tablet by mouth every day Orally Once a day for 30 days Active hydrOXYzine Pamoate 25 MG as directed Orally every 6 hrs Active Senna Active Sertraline HCl 50 MG 1 half tablet Orall y Once a day Active Fexofenadine HCl 180 MG 1 tablet as needed Orally Once a day for 30 day(s) Active Vitamin D 2000 UNIT 1 tablet Orally Once a day for 30 day(s) Active Dicyclomine HCl 20 MG TAKE 1 TABLET BY M OUTH THREE TIMES DAILY WITH MEALS for 30 Active Nukuzsebjb-JVLA-Rpgbgx ne 50-325-40 MG TAKE 1 TO 2 TABLETS BY MOUTH EVERY 4 HOURS NEEDED. NOT TO EXCEED 6 TABLETS PER 24 HOURS Oral for 5 Active Gabapentin 400 MG Oral for 30 Days Active Diphenoxylate-Atropine 0 TAKE 1 TO 2 TABLETS BY MOUTH FOUR TIMES DAILY NEEDED FOR DIARRHEA only prn-rare Active Protonix 40 MG 1 tablet Orally Once a day for 30 day(s) 03/02/2019 Active Immunizations Vaccine Route Administration Date Status Comme nts Influenza Unknown 02/21/2018 Administered Influenza Unknown 04/04/2019 Administered Influenza Unknown 12/24/2020 Administered Influenza Unknown 01/08/2021 Refused Social History Tobacco Use: Social History Observation Description Date Details (start date - stop date) Former Smoker NA - NA Tobacco Use/Smoking Question Answer Notes Patient is a former smoker How long has it been since you last smoked? > 10 years Section Notes: She does not smoke nor use a ny significant amounts of alcohol. She does not smoke nor use a ny significant amounts of alcohol. She does not smoke nor use a ny significant amounts of alcohol. She does not smoke nor use a ny significant amounts of alcohol. She does not smoke nor use a ny significant amounts of alcohol. She does not smoke nor use a ny significant amounts of alcohol. She does not smoke nor use a ny significant amounts of alcohol. She does not smoke nor use a ny significant amounts of alcohol. She does not smoke nor use a ny significant amounts of alcohol. She does not smoke nor use a ny significant amounts of alcohol. She does not smoke nor use a ny significant amounts of alcohol. She does not smoke nor use a ny significant amounts of alcohol. She does not smoke nor use a ny significant amounts of alcohol. She does not smoke nor use a ny significant amounts of alcohol. She does not smoke nor use a ny significant amounts of alcohol. She does not smoke nor use a ny significant amounts of alcohol. She does not smoke nor use a ny significant amounts of alcohol. She does not smoke nor use a ny significant amounts of alcohol. She does not smoke nor use a ny significant amounts of alcohol. She does not smoke nor use a ny significant amounts of alcohol. She does not smoke nor use a ny significant amounts of alcohol. She does not smoke nor use a ny significant amounts of alcohol. She does not smoke nor use a ny significant amounts of alcohol. She does not smoke nor use a ny significant amounts of alcohol. She does not smoke nor use a ny significant amounts of alcohol. She does not smoke nor use a ny significant amounts of alcohol. She does not smoke nor use a hi significant amounts of alcohol. She does not smoke nor use a hi significant amounts of alcohol. Problems Problem Type SNOMED Code ICD Code Onset Dates Problem Status W/U Status Risk Notes Problem Colon cancer screening (210699848) Colon cancer screening (Z12.11) Active confirmed Problem Irritable bowel syndrome (17314449) Irritable bowel syndrome (K58.9) Active confirmed Problem 47093104 Crohn's disease of both small and large intestine without complication (K50.80) Active confirmed Problem 140126631 Nausea (R11.0) Active confirmed Problem 147898992 Encounter for therapeutic drug level monitoring (Z51.81) Active confirmed Problem Dysphagia (28611023) Dysphagia (R13.10) Active confirmed Problem 39689072 Crohns disease o f both small and large intestine without complication (K50.80) Active confirmed Problem 991242111 Gastroesophageal reflux disease, esophagitis presence not specified (K21.9) Active confirmed Problem Chronic gastritis (2475750) Chronic gastritis (K29.50) Active confirmed Problem 79150787 Diarrhea, unspecified type (R19.7) Active confirmed Problem 86242203 Crohn''s disease of both small and large intestine without complication (K50.80) Active confirmed Problem 00427036 Erythematous ski n nodule (R22.9) Active confirmed Problem 56559749 Vaginal candidiasis (B37.3) Active confirmed Problem Drug monitoring done (671759486) Encounter for therapeutic drug monitoring (Z51.81) Active confirmed Problem Gastroesophageal reflux disease (disorder) (118115822) Chronic GERD (K21.9) Active confirmed Vital Signs Blood pressure diastolic 11 mm Hg 06/05/2024 Height 65.5 in 06/05/2024 Blood pressure systolic 111 mm Hg 06/05/2024 Weight 267 lbs 06/05/2024 BMI 43.75 kg/m2 06/05/2024 Encounters Encounter Location Date Provider Diagnosis [facility] [place] Out[place] [address] [place] [id number] 08/23/2023 Emerson Canales Crohn's disease of both small and large intestine without complication K50.80 ; Other hemorrhoids K64.8 ; Chronic gastritis K29.50 ; Hiatal hernia K44.9 ; Chronic GERD K21.9 and Dysphagia R13.10 [facility] [address] [place] [phone] 06/05/2024 Emerson Canales Crohn's disease of both small and large intestine without complication K50.80 ; Irritable bowel syndrome K58.9 ; Chronic GERD K21.9 and Vaginal candidiasis B37.3 [facility] [address] [place] [phone] 06/14/2024 Emerson Canales [facility] [address] [place] [phone] 08/29/2023 Emerson Canales [facility] [address] [place] [phone] 12/23/2023 Emerson Canales [facility] [address] [place] [phone] 02/03/2024 Emerson Canales [facility] [address] [place] [phone] 02/03/2024 Emerson Canales Crohn''s disease of both small and large intestine without complication K50.80 and Encounter for therapeutic drug monitoring Z51.81 [facility] [address] [place] [phone] 05/01/2024 Emerson Canales [facility] [address] [place] [phone] 06/05/2024 Emerson Canales [facility] [address] [place] [phone] 06/22/2024 Emerson Canales Assessments Encounter Date Diagnosis (ICD Code) Assessment Notes Treatment Notes Treatment Clinical Notes Section Notes 08/23/2023 Crohn's disease of both small and large intestine without complication (ICD-10 - K50.80) 08/23/2023 Other hemorrhoids (ICD-10 - K64.8) 06/05/2024 Irritable bowel syndrome (ICD-10 - K58.9) Start using 2 Metamucil fiber pills once or twice every day with a lot of water. Overall, Stephie appears well from a GI standpoint. It does not appear that she is having any active symptoms of Crohn's disease at this time based on the procedures from last year and her clinical history. It does seem that she is having some symptomatology in relation to irritable bowel syndrome with associated constipation. I did recommend she start some Metamucil fiber pills once or twice a day with plenty of water and to try to stay on a high-fiber diet as well. Hopefully this will improve her bowel movement irregularity. I did advise her to continue her daily pantoprazole for the chronic reflux. We did review the need to be careful with her diet and portion sizes in relation to reflux as well. It does appear that removal of her lap band has helped her dysphagia improve as well. While her Crohn's disease does seem to be clinically stable at the present time, I am concerned about the very low Stelara trough level and potential for a flare of the Crohn's disease, as well as her underlying psoriasis. Her Crohn's disease has been severe in the past and has required hospitalizations and steroids. Given that her Stelara antibodies were negative, I advised her that it would be reasonable to try to increase the Stelara regimen from every 8 weeks to every 4 weeks to hopefully obtain a better therapeutic level and hopefully a better chance at maintenance of the current clinical remission of her inflammatory bowel disease and psoriasis. We did review that she will be due for a followup screening colonoscopy in 2028 as well. If things remain stable I will plan to see Stephie in the Fall for a followup visit. I did advise her to certainly call in the interim if she has any problems or questions I can be of assistance with. Stephie was comfortable with this plan. Thank you again for allowing me to participate in Stephie's care. I shall continue to keep you advised of her progress. 06/05/2024 Crohn's disease of both small and large intestine without complication (ICD-10 - K50.80) Increase the Stelara to every 4 weeks Overall, Stephie appears well from a GI standpoint. It does not appear that she is having any active symptoms of Crohn's disease at this time based on the procedures from last year and her clinical history. It does seem that she is having some symptomatology in relation to irritable bowel syndrome with associated constipation. I did recommend she start some Metamucil fiber pills once or twice a day with plenty of water and to try to stay on a high-fiber diet as well. Hopefully this will improve her bowel movement irregularity. I did advise her to continue her daily pantoprazole for the chronic reflux. We did review the need to be careful with her diet and portion sizes in relation to reflux as well. It does appear that removal of her lap band has helped her dysphagia improve as well. While her Crohn's disease does seem to be clinically stable at the present time, I am concerned about the very low Stelara trough level and potential for a flare of the Crohn's disease, as well as her underlying psoriasis. Her Crohn's disease has been severe in the past and has required hospitalizations and steroids. Given that her Stelara antibodies were negative, I advised her that it would be reasonable to try to increase the Stelara regimen from every 8 weeks to every 4 weeks to hopefully obtain a better therapeutic level and hopefully a better chance at maintenance of the current clinical remission of her inflammatory bowel disease and psoriasis. We did review that she will be due for a followup screening colonoscopy in 2028 as well. If things remain stable I will plan to see Stephie in the Fall for a followup visit. I did advise her to certainly call in the interim if she has any problems or questions I can be of assistance with. Stephie was comfortable with this plan. Thank you again for allowing me to participate in Stephie's care. I shall continue to keep you advised of her progress. 02/03/2024 Crohn''s disease of both small and large intestine without complication (ICD-10 - K50.80) 02/03/2024 Encounter for therapeutic drug monitoring (ICD-10 - Z51.81) 08/23/2023 Chronic gastritis (ICD-10 - K29.50) 06/05/2024 Chronic GERD (ICD-10 - K21.9) Overall, Stephie appears well from a GI standpoint. It does not appear that she is having any active symptoms of Crohn's disease at this time based on the procedures from last year and her clinical history. It does seem that she is having some symptomatology in relation to irritable bowel syndrome with associated constipation. I did recommend she start some Metamucil fiber pills once or twice a day with plenty of water and to try to stay on a high-fiber diet as well. Hopefully this will improve her bowel movement irregularity. I did advise her to continue her daily pantoprazole for the chronic reflux. We did review the need to be careful with her diet and portion sizes in relation to reflux as well. It does appear that removal of her lap band has helped her dysphagia improve as well. While her Crohn's disease does seem to be clinically stable at the present time, I am concerned about the very low Stelara trough level and potential for a flare of the Crohn's disease, as well as her underlying psoriasis. Her Crohn's disease has been severe in the past and has required hospitalizations and steroids. Given that her Stelara antibodies were negative, I advised her that it would be reasonable to try to increase the Stelara regimen from every 8 weeks to every 4 weeks to hopefully obtain a better therapeutic level and hopefully a better chance at maintenance of the current clinical remission of her inflammatory bowel disease and psoriasis. We did review that she will be due for a followup screening colonoscopy in 2028 as well. If things remain stable I will plan to see Stephie in the Fall for a followup visit. I did advise her to certainly call in the interim if she has any problems or questions I can be of assistance with. Stephie was comfortable with this plan. Thank you again for allowing me to participate in Stephie's care. I shall continue to keep you advised of her progress. 08/23/2023 Hiatal hernia (ICD-10 - K44.9) 06/05/2024 Vaginal candidiasis (ICD-10 - B37.3) Overall, Stephie appears well from a GI standpoint. It does not appear that she is having any active symptoms of Crohn's disease at this time based on the procedures from last year and her clinical history. It does seem that she is having some symptomatology in relation to irritable bowel syndrome with associated constipation. I did recommend she start some Metamucil fiber pills once or twice a day with plenty of water and to try to stay on a high-fiber diet as well. Hopefully this will improve her bowel movement irregularity. I did advise her to continue her daily pantoprazole for the chronic reflux. We did review the need to be careful with her diet and portion sizes in relation to reflux as well. It does appear that removal of her lap band has helped her dysphagia improve as well. While her Crohn's disease does seem to be clinically stable at the present time, I am concerned about the very low Stelara trough level and potential for a flare of the Crohn's disease, as well as her underlying psoriasis. Her Crohn's disease has been severe in the past and has required hospitalizations and steroids. Given that her Stelara antibodies were negative, I advised her that it would be reasonable to try to increase the Stelara regimen from every 8 weeks to every 4 weeks to hopefully obtain a better therapeutic level and hopefully a better chance at maintenance of the current clinical remission of her inflammatory bowel disease and psoriasis. We did review that she will be due for a followup screening colonoscopy in 2028 as well. If things remain stable I will plan to see Stephie in the Fall for a followup visit. I did advise her to certainly call in the interim if she has any problems or questions I can be of assistance with. Stephie was comfortable with this plan. Thank you again for allowing me to participate in Stephie's care. I shall continue to keep you advised of her progress. 08/23/2023 Chronic GERD (ICD-10 - K21.9) 08/23/2023 Dysphagia (ICD-10 - R13.10) Plan Of Treatment Pending Test Test Name Order Date CHEM 7 PROFILE 07/10/2020 LIVER PROFILE 04/01/2015 LIVER PROFILE 10/17/2018 LIVER PROFILE 02/03/2024 LIVER PROFILE 01/08/2021 LIVER PROFILE 07/08/2013 LIVER PROFILE 08/13/2021 LIVER PROFILE 12/11/2017 LIVER PROFILE 11/03/2015 LIVER PROFILE 01/24/2018 LIVER PROFILE 05/23/2019 LIVER PROFILE 07/11/2017 LIVER PROFILE 07/10/2020 LIVER PROFILE 07/12/2016 LIVER PROFILE 07/15/2016 IRON + IBC (FE) 08/13/2021 CRP 01/08/2021 CRP 01/24/2018 CRP 08/13/2021 VITAMIN B12 AND FOLATE 08/13/2021 CBC w DIFF 07/11/2017 CBC w DIFF 01/24/2018 CBC w DIFF 07/10/2020 CBC w DIFF 07/12/2016 CBC w DIFF 07/15/2016 CBC w DIFF 04/01/2015 CBC w DIFF 08/13/2021 CBC w DIFF 10/17/2018 CBC w DIFF 02/03/2024 CBC w DIFF 07/08/2013 CBC w DIFF 12/11/2017 CBC w DIFF 11/03/2015 CBC w DIFF 05/09/2014 CBC w DIFF 01/08/2021 CBC w/o DIFF 05/23/2019 SED RATE (ESR) 01/08/2021 SED RATE (ESR) 01/24/2018 SED RATE (ESR) 08/13/2021 OTHER REF LAB TEST - MISC 07/12/2016 OTHER REF LAB TEST - MISC 07/15/2016 NUC HIDA SCAN 02/23/2014 PROMETHEUS THIOPURINE METABOLITES (TPMT) 07/11/2017 PROMETHEUS THIOPURINE METABOLITES (TPMT) 01/24/2018 PROMETHEUS THIOPURINE METABOLITES (TPMT) 07/12/2016 PROMETHEUS THIOPURINE METABOLITES (TPMT) 12/11/2017 T SPOT TB 01/02/2019 C DIFFICILE RFLX PCR 08/19/2022 Ferritin 08/13/2021 Prometheus Anser UST 01/08/2021 Prometheus Anser UST 02/03/2024 GI PANEL 08/19/2022 Future Test Test Name Order Date COLONOSCOPY 05/08/2013 UPPER GI ENDOSCOPY 06/08/2018 COLONOSCOPY 06/08/2018 UPPER GI ENDOSCOPY BALLOOON DILATION OF ESOPH 06/30/2023 COLONOSCOPY 06/30/2023 Next Appt Details Provider Name:Emerson Canales , 01/09/2025 01:20:00 PM, [address], [address], [place], [address], Insurance Providers Payer Name Payer Address Payer Phone Subscriber Number Group Number Insured Name Patient Relationship to Insured Coverage Start Date Coverage End Date [facility] [address] [place] [phone] [id number] STEPHIE LLOYD Self - patient is the insured Medical (General) History Medical History History ICD Code Colonoscopy 07-07-2012 Crohn's colitis-diagnosed in 2000- colonoscopy in 02/2009 at [facility] with diffuse colitis/ileitis-has been treated with Remicade, Humira, and azathioprine in the past at [facility]--Stephie reports that the mesalamines and azathioprine seem to exacerbate her GI symptoms with gas and cramps--however, at those time she is usually having active Crohn's disease symptoms as well---she was hospitalized at [facility] in 06/2013 for a flareup of [...] were negative for dysplasia. COVID in 11/2021 Upper endoscopy in July of 2023 revealed a small hiatal hernia, but no evidence of any esophagitis, Saleh's esophagus, esophageal stricture, significant gastritis, H. pylori, nor celiac disease Colonoscopy in July of 2023 revealed a basically normal appearing colon and terminal ileum. There was no evidence of any active colitis nor polyps. All biopsies from the colon were negative for dysplasia Surgical History Surgery Date(Month/Year) Breast reduction Lap Band in 2008--still in place Pneumothorax with chest tubes Lap band removed with improvement in her dysphagia 10/29/2023 Left and right in arm pit areas-- remova l of benign lumps
--- OUTSIDE RECORDS SUMMARY | 2024-07-03 17:25 | XMS_ITS | Encounter Summary ---
Author Organization [employer] Address [address] 7[address] [place] [address] Care Team Providers Care Shear Tender Name Role Phone Ceci Billings MD Primary Care Provide r Encounter Details Date Type Department Care Team (Late st Contact Info) Description 04/23/2024 Orders Only [facility] [address] [place] [address] Ceci Billings MD [address] [place] [address] Social History Tobacco Use Types Packs/Day Years [...] AM EDT Telemedicine [facility] [address] [place] [phone] Ceci Billings MD [address] [place] [address] documented as of this encounter Visit Diagnoses Not on filedocumented in this encounter Additional Health Concerns Assessment Noted Time PHQ-9 Depression Total Score: 0 10/05/19 24 9:33 AM EDT documented as of this encounter Care Teams Shear Tender Relationship Specialty Start Date End Date Ceci Billings MD [address] [place] [id number] PCP - General Family Medicine 06/02/20 documented as of this encounter
[2024-07-04 05:16] LABS: CT PCR NOT DETECTED (Not Detect.); NG PCR NOT DETECTED (Not Detect.)
[2024-07-04 09:04] LABS: Bacterial Vaginosis PCR NEGATIVE (Negative); Candida Group PCR NOT DETECTED (Not Detect); Candida glab krusei PCR NOT DETECTED (Not Detect); Trichomonas vaginalis PCR NOT DETECTED (Not Detect)
== END 2024-07-03 11:27 | disposition home or self-care (01) ==
LOC: HO.LAB 11:26
PROVIDERS: PCP Internal Medicine; Visit Provider Advanced Practice Midwife
DX: Z01.419 Encounter for gynecological examination (general) (routine) without abnormal findings (principal); N89.8 Other specified noninflammatory disorders of vagina
CPT/HCPCS: 81515; 87491; 87591; 99396; 99459

== ENCOUNTER 2024-07-03 11:26 | Outpatient (AMB) | payer MEDICAID, SELFPAY ==
[2024-07-03 11:36] VITALS: BP 120/70; BMI 39.5
--- NOTE | 2024-07-03 11:36 | A.OFFVIS_ITS ---
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 Customer Experience Associate Services: Customer Experience Associate Present Information Interpreted: clinical only Pharmacy Informatics Specialist: Pharmacy Informatics Specialist Present Allergies ciprofloxacin [From CIPRO] Allergy (Severe, Verified 07/03/24 11:39) GI PAIN vancomycin Allergy (Severe, Verified 07/03/24 11:39) Anaphylaxis Medication List - Last Reconciled 07/03/24 by Kylee Rodriguez CNM albuterol sulfate 2.5 mg inhalation QID PRN albuterol sulfate 90 mcg/actuation (ProAir HFA) 2 puffs inhalation Q6H PRN pooupfjhkm-ucrtbumhsokkh-zgil 50-325-40 mg 1 tab PO Q4H celecoxib (Celebrex) 200 mg PO BID 30 days clonazepam 0.5 mg PO DAILY PRN cyclobenzaprine 10 mg PO TID PRN dicyclomine 20 mg PO TID fexofenadine (Amada Allergy) 180 mg PO DAILY fluconazole 150 mg PO Q3D PRN fluticasone propionate 110 mcg/actuation 110 mcg inhalation BID 30 days gabapentin mg PO 3XD levonorgestrel (Mirena) 20 mcg intrauterine DAILY methocarbamol 750 mg PO QID methocarbamol 750 mg PO QID montelukast 10 mg PO BEDTIME 30 days pantoprazole 40 mg PO DAILY propranolol 10 mg PO BID sertraline 75 mg PO DAILY tirzepatide (weight loss) (Zepbound) 2.5 mg subcut QWEEK ustekinumab (Stelara) 90 mg subcut Q8W zolpidem (Ambien) 10 mg PO BEDTIME Is last menstrual period known: Yes Last menstrual period: 06/28/24 [facility] 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 She is been frustrated that her period has not been made as light as she hoped with the Mirena she says she gets a period heavy for a couple of days and then has light brown spotting when she wipes not enough to wear a tampon with for another 2 weeks. She is finding it annoying she could tell me the dates of the last 2 days of heavy bleeding which was 3 6 and 3 7 and the brown discharge when she wipes lasted until yesterday. But she does not keep track otherwise and does not have any other dates that she has kept. She sees Dr. Beckman for her primary care and is talking about all her other health concerns as well as weight loss and she has been switched from the [facility] to [facility]. She saw her just 2 weeks ago and now she has a telephone visit coming up on July 24. She also sees Dr. Canales for her Crohn's and says that he checks some blood work and her primary care checked her blood work last last June of 2023. She is up-to-date on mammograms and has a next 1 on the . [facility] Medical History COVID Somnolence, daytime TANA (obstructive sleep apnea) Allergic rhinitis Bronchial asthma Trigger finger Dysuria Obesity, morbid, BMI 40.0-49.9 Encounter for Papanicolaou smear for cervical cancer screening Asthma Insomnia Crohn's disease Surgical History History of removal of laparoscopic gastric banding device Hx of hand surgery History of carpal tunnel surgery Hx of laparoscopic gastric banding Hx of breast reduction, elective Family History Father HIV (human immunodeficiency virus infection) Mother Hypertension Maternal Grandmother Diabetes mellitus Maternal Grandfather Hypertension Lymphoma Paternal Grandfather No problems noted. 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/ Gender identity: Female Female Reproductive History Menstrual Age of Menarche: 13 Duration of menses: 6-7 days Date of last menstrual period: 06/28/24 control method: progestin IUCD Total pregnancies: 1 Full term: 1 Date of last pap smear: 11/09/21 (negative) History of abnormal pap smear: Yes (hx abn.) Date of Mammogram: 04/04/23 (2BEN.Find.) Physical Exam Vital Signs: Last Vital Signs BP 120/70 07/03/24 11:36 BMI result Body Mass Index 39.5 Const General: healthy appearing, comfortable, no acute distress, well developed and alert Nutritional Appearance: average body habitus Orientation/consciousness: patient oriented x3 Limitations: no limitations HEENT Head: Yes normocephalic Neck Neck: Yes normal visual inspection Chest Chest palpation & inspection: normal inspection of the chest Breast/axilla inspection: normal inspection of the breasts and normal inspection of the axillae Breast/axilla palpation: normal palpation of the breasts and normal palpation of the axillae Resp Effort & Inspection: normal respiratory effort GI Inspection: Yes normal to inspection, No Abdominal wall edema and No distended Palpation (GI): Soft to palpation and nontender Other: External exam within normal limits vagina pink and moist cervix is fairly downward pointing and difficult fully visualize but appears pink and smooth healthy Mirena string easily visible. Pap smear taken as well as cultures discharge is white consistent with normal discharge. No menses or brown discharge seen, Cervix long close tender mobile uterus difficult to fully palpate but nontender pubic arch is very low. General: Yes bladder normal to palpation External Female Exam: normal external appearance and normal appearance of the urethra Speculum Exam - Vagina: normal appearance of the vagina, normal palpation and normal vaginal discharge Speculum Exam - Cervix: normal appearance of the cervix, normal palpation and nontender Bimanual exam- vagina & uterus: normal bimanual exam, normal palpation, uterine size normal, bladder normal to palpation, consistency normal, normal palpation, uterine mobility normal, uterine shape normal, No Cervical tenderness present, non-tender and no cervical motion tenderness Bimanual Exam- Adnexa, other: normal adnexae, no masses, normal and No adnexal tenderness Neuro General: patient oriented x3 Results Reviewed Results Reviewed: Name: Gabino Windy Chowdhury Age/Sex: 48/F : 1975 Unit#: [id number] Attend Dr: Emerson Canales MD Re04/04/24 Status: DEP REF Location: .LAB Disch: SPEC : [id number] BERNARDO: 04/04/24 STATUS: COMP REQ : [id number] RECD: 04/04/[address] [facility] [address]: Emerson Canales MD COMP: 04/04/24 ENTERED: 04/04/[address] [facility] [address]: ORDERED: CBC Auto Diff Test Result Flag Reference WBC 5.2 4.8-10.8 X10*3/uL RBC 4.51 4.20-5.50 X10*6/uL HGB 12.6 12.0-16.0 g/dl HCT 40.1 37.0-47.0 % MCV 88.9 80.0-98.0 fL MCH 27.9 27.0-33.0 pg MCHC 31.4 31.0-35.0 g/dl RDW 13.2 11.0-16.0 % PLT 224 160-400 X10*3/uL MPV 11.3 9.4-12.3 fL Neut Pct Auto 52.8 45-73 % ImGran Pct Auto 0.4 0.0-0.4 % Lymp Pct Auto 31.0 20-40 % Rosebud Pct Auto 8.7 2-11 % Eos Pct Auto 6.7 H 0-4 % Baso Pct Auto 0.4 0-2 % NRBC Pct Auto 0.0 0.0-0.2 /100WBC ANC Neut Abs # 2.8 2.0-8.3 x10*3/uL ImGran Abs Auto 0.02 0.00-0.03 X10*3/uL Lymph Abs Auto 1.6 1.2-4.9 X10*3/uL Rosebud Abs Auto 0.5 0.1-1.2 X10*3/uL Eos Abs Auto 0.4 0.0-0.4 X10*3/uL Baso Abs Auto 0.0 0.0-0.2 X10*3/uL NRBC Abs Auto 0.000 0.0-0.012 X10*3/uL Name: Windy Mcfarlane Age/Sex: 46/F Attending: Kylee Rodriguez CNM : 1975 Submitted by: Kylee Rodriguez CNM Copies to: Ceci Billings MD MR #: [id number] Status: DEP REF Collected: 11/09/21 Location: HO.LAB Received: 11/10/21 Interpretation Satisfactory for evaluation. Negative for intraepithelial lesion or malignancy. HPV mRNA E6/E7: NOT DETECTED This assay detects E6/E7 viral messenger RNA (mRNA) from 14 high-risk HPV types (16, 18, 31, 33, 35, 39, 45, 51, 52, 56, 58, 59, 66, 68) HPV testing performed by [facility], [place], [place]. See reference laboratory portion of the EMR for entire report. Clinical Information LMP: 11/06/21 Previous PAP test: 05/27/20, WNL Material Received ThinPrep-Cervical Copies To Ceci Billings MD [address] [place] [address] Kylee Rodriguez CNM [address] [place] [address] Dr. Raymond [address] [place] [id number] Electronically Signed By: Oly Delaney 11/16/21 5811 The Pap Test is a screening procedure with the inherent possibility of both false negative and false positive results. Results should be interpreted in the context of historic and current clinical findings. Reliability of the Pap Test is enhanced by performing the test on a regular repetitive basis. Patient: Windy Mcfarlane Age/Sex: 46/F MR#: [id number] Page 1 of 1 [place] [address] Ultrasound Report Signed with Patrick Patient: Windy Mcfarlane MR#: [id number] : 1975 Acct:[id number] Age/Sex: 46 / F ADM Date: 08/04/22 Loc: Attending Dr: Kylee Rodriguez CNM Ordering Physician: Kylee Rodriguez CNM Date of Service: 08/04/22 Procedure(s): US pelvic and transvaginal Accession Number(s): [id number] cc: Kylee Rodriguez CNM~ ADDENDUMADDENDUM: CORRECTION: The double wall endometrial thickness is 8 mm. Addendum Dictated By: Sotero Silveira MD Addendum Signed By: <Electronically signed by Sotreo Silveira MD in OV> 08/12/222301 Addendum Cosigned By: DD/ /16/1431 TD/TT: / EXAMINATION: US PELVIS CLINICAL INFORMATION: Abnormal uterine bleeding; the last menstrual period was on 06/29/2022. COMPARISON: Pelvic ultrasound dated 10/06/2021. TECHNIQUE: Ultrasound of the pelvis is performed using both transabdominal and transvaginal transducers along with Doppler. Transvaginal imaging is performed due to inadequate visualization transabdominally. FINDINGS: Uterus: The uterus is anteverted and measures 10.8 x 3.8 x 5.0 cm. The uterus is anteverted and anteflexed. The double wall endometrial thickness is seen mm. An intrauterine device is seen, properly situated within the dependent pelvis. The uterus is smooth in contour and has normal myometrial echogenicity. No visible fibroid. Adnexa: The right ovary is not visualized. The left ovary is visualized. There is normal abnormal color flow to the adnexa. There is no ovarian torsion. There is no pelvic ascites or fluid collection. The left ovary measures 3.4 x 1.9 x 2.0 cm, volume 6.6 mL. The left ovary contains a 2.0 cm dominant simple cyst. This is a benign finding, for which no imaging follow-up is recommended. US/US pelvic and transvaginal IMPRESSION: 1. An intrauterine device is seen, properly situated within the endometrial canal. 2. The right ovary is nonvisualized. 3. A 2.0 cm benign, simple left ovarian cyst is seen, for which no imaging follow-up is recommended. Dictated By: Sotero Silveira MD Note endometrial biopsy was done the same day as placement of a Mirena IU S for her abnormal bleeding pattern 07/23/22. She had previously had Mirena is and ParaGard switched off and on Name: Windy Mcfarlane Age/Sex: 46/F Attending: Kylee Rodriguez CNM : 1975 Submitted by: Kylee Rodriguez CNM Copies to: Ceci Billigns MD MR #: [id number] Status: DEP REF Collected: 07/23/22 Location: .LAB Received: 07/23/22 Diagnosis Endometrium, biopsy: - Chronic endometritis. - Background breakdown and blood. - No atypia seen. Clinical History AUB Microscopic Description Microscopic sections reviewed. Material Received EMB Gross Description Received in formalin labeled EMB is a 2.0 x 2.0 x 0.45 cm. aggregate of multiple irregular and tubular cast fragments of congested and hemorrhagic, red-maroon tissue and blood. The specimen is submitted in toto in a single cassette labeled A. CEDS This case was reviewed intradepartmentally. Copies To Ceci Billings MD [address] [place], [place] [phone] Kylee Rodriguez [address] Mandi Coleman [place], [place] [phone] NOTE: Some or all of the immunohistochemical tests reported herein may have been developed and their performance characteristics determined by [facility]. They have not been cleared or approved by the U.S. Food and Drug Administration (FDA). However, the FDA has determined that such clearance or approval is not necessary. This laboratory is certified under the Clinical Laboratory Improvement Amendments of 1988 (CLIA) as qualified to perform high complexity clinical laboratory testing. Patient: Windy Mcfarlane Age/Sex: 46/F MR#: [id number] Page 1 of 2 Assessment & Plan Assessment & Plan (1) Well woman exam with routine gynecological exam: Code(s): Z01.419 - Encounter for gynecological examination (general) (routine) without abnormal findings Category: Medical (2) Surveillance for control, intrauterine device: Code(s): Z30.431 - Encounter for routine checking of intrauterine contraceptive device Category: Medical (3) Encounter for Papanicolaou smear for cervical cancer screening: Comment: 07/2006- TAE 1&2 07/2015-neg pap , neg HPV. pap 05/26/20=miroslava/neg, neg HPV;pap done 11/09/21=neg w neg HPV Code(s): Z12.4 - Encounter for screening for malignant neoplasm of cervix Category: Medical (4) Abnormal uterine bleeding (AUB): Comment: EMB 11/09/2021 equals negative./emb repeated 07/23/22 Code(s): N93.9 - Abnormal uterine and vaginal bleeding, unspecified Category: Medical (5) Presence of 52 mg levonorgestrel-releasing intrauterine device (IUD): Comment: Removed 11/09/2021, replaced w paragard,; later replaced again w mirena iud 2' bleeding Code(s): Z97.5 - Presence of (intrauterine) contraceptive device Category: Social Hx (6) Chronic endometritis: Comment: treated- see notes Code(s): N71.1 - Chronic inflammatory disease of uterus Category: Medical (7) Obesity, morbid, BMI 40.0-49.9: Comment: Continues to be obese, has not been able to lose much weight. Code(s): E66.01 - Morbid (severe) obesity due to excess calories Category: Medical (8) Patellofemoral arthritis of right knee: Comment: Painful when she walks her treadmill. Is awaiting approval to try gel discussed considering exercise bike. Code(s): M17.11 - Unilateral primary osteoarthritis, right knee Category: Medical Plan -----Discussed in this visit the following: healthy balanced diet, regular and consistent exercise, getting recommended health screens, doing the best she can for her particular health concerns, kegel exercises, pap smear screening and followup recommendations, mammography screening and SBE, normal changes in cycles in her life stage--- . Discussed her concern about the brown spotting discussed that this is probably just the residual that is left over it is only when she wipes after all it is not actually a flow and it is was left over after the menses. I asked her to keep track of when she actually bleed like. And I actually write down on a calendar in that we will be some assistance in trying to figure out what needs workup and evaluation and what does not. I did offer her pelvic ultrasound which maybe of limited use anyway but she decided she will keep track of her bleeding pattern 1st I did actually asked her to write the dates down. She and I reviewed labs and evaluations that have taken place over the past year she does not believe her primary care provider has ordered her any blood work and she went through her phone to check results in her last lab results were from june 2023 in the [facility] justine in her phone . She will be seen Dr. Cooper by a tele July 24 I suggested she may want to just check on the way out of the building to see if she is supposed to get lab work she had been she would have known that she was supposed to. I asked her to keep track of the bleeding pattern and if it develops that it really is that she is bleeding substantially more than would be expected with a normal period, . Then her next evaluation should be with the branch administrator as she may need evaluation more than I can do. Follow-up with primary as scheduled and Any lab work that primary what is If has abnormal bleeding we will need evaluation with branch administrator Coding Level of Care Code Est Pt Prev Care 40-64y(83507) Diagnoses Well woman exam with routine gynecological exam Z01.419 Surveillance for control, intrauterine device Z30.431 Encounter for Papanicolaou smear for cervical cancer screening Z12.4 Abnormal uterine bleeding (AUB) N93.9 Presence of 52 mg levonorgestrel-releasing intrauterine device (IUD) Z97.5 Chronic endometritis N71.1 Obesity, morbid, BMI 40.0-49.9 E66.01 Patellofemoral arthritis of right knee M17.11
--- OUTSIDE RECORDS SUMMARY | 2024-07-03 14:11 | XMS_ITS | Clinical Summary ---
Author Organization [facility] Address [address] [place] [address] Phone Care Team Providers Care Fisher Terrapin Name Role Phone Katrina Sherwood MD Primary Care Provider [phone] Allergies Active Allergy Reactions Criticality Noted Date [...] 9:00 AM EST Office Visit Orthopedic Surgery [place] [address] [phone] Juan Moody DPM Lumbosacral radiculopathy (Primary Dx); [...] 8:30 AM EDT Office Visit Orthopedic Surgery [facility] [address] [phone] Juan Moody DPM [address] [address] Health Maintenance Due Date Last Done Comments [...] Final Result * Lipid panel (08/06/2022) Pathologist [facility] LDL/HDL Ratio 0 Comment:no interpretation, a bstracted Triglycerides 0 mg/dL Comment:no interpretation, a bstracted Cholesterol 0 mg/dL Comment:no interpretation, a bstracted HDL 0 mg/dL Comment:no interpretation, a bstracted LDL Cholesterol 0 mg/dL Comment:no interpretation, a bstracted Blood Venous blood specimen / Unknown Historical Provider LAB BLOOD ORDERABLES Marcelina l Result * Cervical Cancer Screening: HPV (11/09/2021) Pathologist [facility] Cervical Cancer Screening: HPV abstracted Historical Provider HEALTH MAINTENANCE Final Result from Last 3 Months or Most Recently Relevant to Health Maintenance Insurance MEDICAID - [place] Care Teams Fisher Terrapin Relationship Specialty Start Date End Date Kaela, Katrina, MD [address] [place] [phone] PCP - General Internal Medicine 01/02/14
--- OUTSIDE RECORDS SUMMARY | 2024-07-03 14:11 | XMS_ITS ---
Author Organization [facility] Address [address] [place] [address] Care Team Providers Care Four Horse Hitch Driver Name Role Phone Reymundo WEEMS, Summer Primary Care Provider Unavailab Emerson Kothari [phone] REASON FOR VISIT Stelara Q 4 weeks Rx Encounters Encounter Location Date Provider Diagnosis [facility] [address] [place] [address] 06/22/2024 Emerson Canales Plan Of Treatment Next Appt Details Provider Name:Emerson Canales , 01/09/2025 01:20:00 PM, [address] [facility], [address], [place], [address], Progress Notes * STEPHIE LLOYDDOB: 7 (48 yo F)Acc No.[id number]:06/22/2024 Patient:?STEPHIE LLOYD :1975???Age:48 Y???Sex:Female Address:[address] [place] [address] * true * Date:? Generated for Randolphi gema/Enmanuel/eTransmitting on:?07/03/2024 02:11 PM EDT
--- OUTSIDE RECORDS SUMMARY | 2024-07-03 14:12 | XMS_ITS | Encounter Summary ---
Author Organization [employer] Address [address] [facility] [address] [place] [address] Care Team Providers Care Seamless Tube Mill Operator Name Role Phone Ceci Billings MD Primary Care Provide r Reason for Visit * Reason Comments Med Refill Encounter Details Date Type Department Care Team (Late st Contact Info) Description 01/03/2024 Refill [facility] [address] [place] [address] Ceci Billings MD [address] [place] [address] Social History Tobacco Use Types Packs/Day Years [...] Info) Description 07/24/2024 11:30 AM EDT Telemedicine [facility] [address] [place] [address] Ceci Billings MD [address] [place] [address] documented as of this encounter Visit Diagnoses Not on filedocumented in this encounter Additional Health Concerns Assessment Noted Time PHQ-9 Depression Total Score: 0 10/05/19 24 9:33 AM EDT documented as of this encounter Care Teams Seamless Tube Mill Operator Relationship Specialty Start Date End Date Ceci Billings MD [address] [place] [address] PCP - General Family Medicine 06/02/20 documented as of this encounter"
--- OUTSIDE RECORDS SUMMARY | 2024-07-03 14:12 | XMS_ITS | Encounter Summary ---
Author Organization [employer] Address [address] [facility] [facility] [address] [place] [address] Care Team Providers Care Special Needs Teacher Name Role Phone Ceci Billings MD Primary Care Provide r Encounter Details Date Type Department Care Team (Late st Contact Info) Description 07/27/2023 Orders Only [facility] [address] [place] [address] Ceci Billings MD [address] [place] [address] Class 3 severe obesity with serious comorbidity [...] Info) Description 07/24/2024 11:30 AM EDT Telemedicine [facility] [address] [place] [address] Ceci Billings MD [address] [place] [address] documented as of this encounter Visit Diagnoses Diagnosis Class 3 severe obesity with serious comorbidity and body mass index (BMI) of 45.0 to 49.9 in adult, unspecified obesity type (CMS/HCC)- Primary documented in this encounter Additional Health Concerns Assessment Noted Time PHQ-9 Depression Total Score: 5 07/07/19 24 10:12 AM EDT documented as of this encounter Care Teams Special Needs Teacher Relationship Specialty Start Date End Date Ceci Billings MD [address] [place], [place] [phone] PCP - General Family Medicine 06/02/20 documented as of this encounter
--- OUTSIDE RECORDS SUMMARY | 2024-07-03 14:12 | XMS_ITS | Encounter Summary ---
Author Organization [employer] Address [address] [facility] 7t [place] [address] Care Team Providers Care Golf Ball Cover Treater Name Role Phone Ceci Billings MD Primary Care Provide r Reason for Visit * Reason Comments Med Refill Encounter Details Date Type Department Care Team (Late st Contact Info) Description 06/22/2024 Refill [facility] [address] [place] [address] Ceci Billings MD [address] [place] [address] Migraine without aura, not refractory Social History Tobacco Use Types Packs/Day Years [...] Info) Description 07/24/2024 11:30 AM EDT Telemedicine [facility] [address] [place] [address] Ceci Billings MD [address] [place] [address] documented as of this encounter Visit Diagnoses Diagnosis Migraine without aura, not refractory documented in this encounter Additional Health Concerns Assessment Noted Time PHQ-9 Depression Total Score: 0 10/05/19 24 9:33 AM EDT documented as of this encounter Care Teams Golf Ball Cover Treater Relationship Specialty Start Date End Date Ceci Billings MD [address] [place] [address] PCP - General Family Medicine 06/02/20 documented as of this encounter
--- OUTSIDE RECORDS SUMMARY | 2024-07-03 14:12 | XMS_ITS | Clinical Summary ---
Author Organization [facility] Address [address] [facility] 7t [place] [address] Care Team Providers Care Ball Sorter Name Role Phone Ceci Billings MD Primary [...] week). 15 tablet 2 04/24/20 24 Active ondansetron (Zofran) 4 MG tabletIndication [...] TWICE DAILY 360 tablet 06/12/19 25 Active acetaminophen (Tylenol 8 Hour) 650 MG ER tabletIndication s:Lumbar radiculopathy, chronic TAKE 2 TABLETS(1300 MG) BY MOUTH EVERY 8 HOURS NEEDED FOR MILD PAIN. DO NOT CRUSH, CHEW, OR SPLIT 40 tablet 06/29/19 25 Active dicyclomine (Bentyl) 20 MG tabletIndication s:Crohn's disease of both small and large intestine without complication (CMS/HCC) TAKE 1 TABLET BY MOUTH IF NEEDED IN THE MORNING, AT NOON, AND AT BEDTIME 90 tablet 1 06/29/19 25 Active Tirzepatide-Weig ht Management (Zepbound) 5 MG/0.5ML solution auto-injectorInd ications:Class 3 severe obesity with serious comorbidity and body mass index (BMI) of 45.0 to 49.9 in adult, unspecified obesity type (CMS/HCC) Inject 0.5 mL (5 mg) under the skin 1 (one) time per week. 2 mL 07/03/19 25 Active dicyclomine (Bentyl) 20 MG tabletIndication s:Crohn's disease of both small and large intestine without complication (CMS/HCC) Take 1 tablet (20 mg) by mouth if needed in the morning, at noon, and at bedtime (take if needed). 90 tablet 1 02/16/20 23 025 Discontinued senna (Senokot) 8.6 MG tabletIndication s:Crohn's disease of both small and large intestine without complication (CMS/HCC) Take 2 tablets (17.2 mg) by mouth 2 times daily. 120 tablet 09/14/19 24 025 Discontinued baclofen (Lioresal) 20 MG tabletIndication s:Fibromyositis Take 1 tablet (20 mg) by mouth 3 times daily. 90 tablet 02/29/20 24 025 Discontinued acetaminophen (Tylenol 8 Hour) 650 MG ER tabletIndication s:Lumbar radiculopathy, chronic Take 2 tablets (1,300 mg) by mouth every 8 (eight) hours if needed for mild pain. Do not crush, chew, or split. 40 tablet 04/24/20 24 025 Discontinued Active Problems Problem Noted Date Diagnosed Date Other constipation 10/05/2023 Assessment & Plan (11/04/2023 10:15 AM EDT): Increase water and fiber on diet Patient will call GI office for a f/u appointment I will inquie about PA for linzess Assessment & Plan (10/05/2023 12:37 PM EDT): [...] Encounters Date Type Department Care Team Description 07/03/2024 Orders Only [facility] [address] [place] [address] ProviderChito MD 07/02/2024 Refill [facility]INE [address] [place] [address] Ceci Billings MD Class 3 severe obesity with serious comorbidity and body mass index (BMI) of 45.0 to 49.9 in adult, unspecified obesity type ([facility]) 06/27/2024 Refill [facility] MEDICINE [address] [place] [address] Ceci Billings MD Lumbar radiculopathy, chronic; Crohn's disease of both small and large intestine without complication ([facility]) 06/22/2024 Refill [facility] MEDICINE [address] [place] [address] Ceci Billings MD Migraine without aura, not refractory 06/11/2024 Refill [facility]INE [address] [place] [address] Ceci Billings MD Crohn's disease of both small and large intestine without complication ([facility]) 06/07/2024 11:30 AM EST Office Visit [address] [phone] Ceci Billings MD Fibromyalgia (Primary Dx); Class 3 severe obesity with serious comorbidity and body mass index (BMI) of 45.0 to 49.9 in adult, unspecified obesity type ([facility]) 06/07/2024 Travel 05/28/2024 Telephone [facility] MED[facility]INE [address] [place] [address] [phone] Ceci Billings MD Prior Authorization ( PA Request: Zepbound) 05/25/2024 Patient Outreach [facility] [address] [place] [address] [phone] Ceci Billings MD Pre-visit Planning (SDOH screening negative and tobacco screening negative) 05/22/[address] [address] Ceci Billings MD 05/08/[address] [address] Ceci Billings MD Prior Authorization ( PA Request: Zepbound) 04/24/2024 9:00 AM EST Office Visit [address] [address] Ceci Billings MD Neuropathy (Primary Dx); Lumbar radiculopathy, chronic; Class 3 severe obesity with serious comorbidity and body mass index (BMI) of 45.0 to 49.9 in adult, unspecified obesity type (CMS/HCC); Insomnia, unspecified type; Heartburn; Migraine without aura, not refractory 04/24/2024 Travel 04/23/2024 Orders Only [address] [address] Ceci Billings MD 04/23/2024 Travel 04/12/2024 Patient Outreach [address] [address] Ceci Billings MD Pre-visit Planning (SDOH screening completed on 06/29/2023) from Last 3 Months Immunizations Name Administration [...] Info) Description 07/24/2024 11:30 AM EDT Telemedicine [facility] MED[facility]INE [address] [place] [address] Ceci Billings MD [address] [place] [address] Health Maintenance Due Date Last Done Comments CT Colonography 1976 FIT DNA/Cologuard 1976 FIT 1975 FOBT 1975 HIV Screening 1975 Sigmoidoscopy 1976 Alcohol/Substance Use Screening 1988 Family Planning (PISQ) 09/12/1991 Hepatitis C Screening 1994 Pap Smear 1997 COVID-19 Vaccine ( season) 2023 08/19/2020, 07/11/2020 Influenza Vaccine (#1) 2023 , 05/07/2021, 12/24/2020, Additional history exists Mammogram 04/04/2024 04/04/2023, 03/25, 11/15/2022, Additional history exists Depression Screening 10/04/2024 10/05/2023, 10/05/19 SDOH Screening 05/25/2025 05/25/2024 Tobacco Screening 06/07/2025 06/07/2024 Zoster Vaccines (1 of 2) 2026 Cervical Cancer Screening 11/09/2026 HPV/Cotest 11/09/2026 11/09/2021, 10/23, 05/26/2020, Additional history exists Lipid Panel 08/07/2027 08/06/2022 DTaP/Tdap/Td Vaccines (3 - Td or Tdap) 04/26/2033 04/26/2023, 07/13/2012, 12/17/1999 Colonoscopy 08/22/2033 08/23/2023 Colorectal Cancer Screening 08/22/2033 RSV Patients and Patients Aged 60 years [...] Procedure Name Priority Date/Time Associated Diagnosis Comments HM COLONOSCOPY Routine 08/23/2023 11:53 AM EDT BI MAMMOGRAM DIAGNOSTIC TOMOSYNTHESIS BILATERAL Routine 04/04/2023 3:40 PM EST LIPID PANEL, STANDARD Routine 08/06/2022 10:02 AM EDT Migraine without aura, not refractory ZZZ HISTORICAL HPV E6/E7 RFLX JESSICA 16 18/45 Routine 11/09/2021 2:40 PM EDT from Last 3 Months or Most Recently Relevant to Health Maintenance Results * Hm Colonoscopy (08/23/2023 11:53 AM EDT) us Historical Provider HEALTH MAINTENANCE Final Result * BI Mammogram Diagnostic Tomosynthesis Bilateral (04/04/2023 3:40 PM EST) Anatomical Region Laterality Modality Breast Bilateral Mammography 04/04/2023 3:40 PM EST Narrative 04/04/2023 4:30 PM EST ? [facility] [place] ? [address] ?[place], [place] [address] ? Mammography Report ? Signed ? Patient: Windy Mcfarlane ?MR# ?? : [id number] ? : 1975 ?Acct:[id number] ? Age/Sex: 47 / F ?ADM Date: 04/04/23 ? Loc: HO.MAMMO ? Attending Dr: Sotero Tyson MD ? Ordering Physician: Cuauhtemoc Tolliver MD ?Results: 2Benig ?? n Findings ? Date of Service: 04/04/23 ?Follow Up: 1 Year From Orig ?? inal Mammogram ? Procedure(s): MM tomosynthesis diagnostic BI ?? Accession Number(s): [id number] ? cc: Ceci Billings MD; Cuauhtemoc Tolliver [...] signed by Eliel Chiu MD in OV> ?04/04/237 ? DD/ 1540 ? TD/TT: ? Entry Processor: ? Procedure Note Dontammieinterpreter, Image - 04/04/2023 [facility] [address] [place] [address] Mammography Report Signed Patient: Miladis Mcfarlane# : [id number] : 1975Acct:[id number] Age/Sex: 47 / FADM Date: 04/04/23 Loc: [facility] Attending Dr: Sotero Tyson MD Ordering Physician: Cuauhtemoc Tolliver MDResults: 2Benig n Findings Date of Service: 04/04/23Follow Up: 1 Year From Orig inal Mammogram Procedure(s): MM tomosynthesis diagnostic BI Accession Number(s): [id number] cc: Ceci Billings MD; Cuauhtemoc Tolliver MD [...] in OV> 04/04/23 1627 DD/ 1540 TD/TT: Entry Processor: [facility] External Provider IMG BI PROCEDURES Final Result * Lipid Panel, Standard (08/06/2022 10:02 AM EDT) Cholesterol, Total 144 <200 mg/dL [facility] HDL Cholesterol 58 > OR = 50 mg/dL [facility] [place] [facility] Triglycerides 49 <150 mg/dL [facility] [place] [facility] LDL Cholesterol 72 mg/dL (calc) [facility] Comment: Reference range: <100 Desirable range <100 mg/dL for primary prevention; ?? <70 mg/dL for patients with CHD or diabetic patients with > or = 2 CHD risk factors. LDL-C is now calculated using the Blayne-Louise calculation, which is a validated novel method providing better accuracy than the Friedewald equation in the estimation of LDL-C. Blayne SS et al. NICHELLE. 2013;310(19): 8082-3022 (http://education.GroupZoom.LectureTools/faq/BBK366) Chol/HDLC Ratio 2.5 <5.0 (calc) [facility] Non-HDL Cholesterol 86 <130 mg/dL (calc) [facility] Comment: For patients with diabetes plus 1 major ASCVD risk factor, treating to a non-HDL-C goal of <100 mg/dL (LDL-C of <70 mg/dL) is considered a therapeutic option. Blood Venous blood specimen / Unknown 08/06/2022 10:02 AM EDT 08/06/2022 10:02 AM EDT Narrative [facility] - 08/07/2022 2:37 AM EDT FASTING:NO FASTING: NO Ceci Peacock MD LAB BLOOD ORDERABLES Final Result [facility] [address], [place] [address] [facility] [address] [place] [address] * HPV E6/E7 RFLX JESSICA 16 18/45 (11/09/2021 2:40 PM EDT) HPV mRNA E6/E7 rflx Not Detected Not Detected [facility] Comment: Methodology: Single Spindle Screw Machine Operator-Mediated Amplification This assay detects E6/E7 viral messenger RNA (mRNA) from 14 high-risk HPV types (16,18,31,33,35,39,45,51,52,56,58,59,66,68). Cervical sources are required for HPV testing. If a vaginal source from a patient who has had a total hysterectomy with removal of cervix was submitted, please contact the testing laboratory for alternative testing options. For additional information, please refer to http://education.Lotour.com/faq/NBB737i6 (This link if provided for information/ educational purposes only.) THIS TEST WAS PERFORMED AT: [facility] [address] [place], [place] ??[phone] TIN DICKEY MD 11/09/2021 2:40 PM EDT Kylee Rodriguez HISTORICAL/NON ORDERABLE LABS Fi nal Result [facility] [address] from Last 3 Months or Most Recently Relevant to Health Maintenance Insurance [facility] C3 HSN FULL Care Teams Ball Sorter Relationship Specialty Start Date End Date Ceci Billings MD [address] [place] [phone] PCP - General Family Medicine 06/02/20
--- OUTSIDE RECORDS SUMMARY | 2024-07-03 14:12 | XMS_ITS | Encounter Summary ---
Author Organization [employer] Address [address] 7t [place] [address] Care Team Providers Care Office Coordinator Receptionist Name Role Phone Ceci Billings MD Primary Care Provide r Encounter Details Date Type Department Care Team (Late st Contact Info) Description 07/03/2024 Orders Only [facility]EDS [address] [place] [address] Provider, MD Chito Social History Tobacco Use Types Packs/Day Years [...] Info) Description 07/24/2024 11:30 AM EDT Telemedicine [facility] MEDICINE [address] [place] [address] Ceci Billings MD [address] [place] [address] documented as of this encounter Procedures Procedure Name Priority Date/Time Associated Diagnosis Comments HM COLONOSCOPY Routine 08/23/2023 11:53 AM EDT documented in this encounter Results * Hm Colonoscopy (08/23/2023 11:53 AM EDT) Historical Provider HEALTH MAINTENANCE Final Result documented in this encounter Visit Diagnoses Not on filedocumented in this encounter Additional Health Concerns Assessment Noted Time PHQ-9 Depression Total Score: 0 10/05/19 24 9:33 AM EDT documented as of this encounter Care Teams Office Coordinator Receptionist Relationship Specialty Start Date End Date Ceci Billings MD [address] [place] [address] PCP - General Family Medicine 06/02/20 documented as of this encounter
--- OUTSIDE RECORDS SUMMARY | 2024-07-03 14:12 | XMS_ITS | Encounter Summary ---
Author Organization [employer] Address [address] [facility] [address] [address] 7t [place] [address] Care Team Providers Care Financial Foundations Associate Name Role Phone Ceci Billings MD Primary Care Provide r Reason for Visit * Reason Onset Date Comments Medication Question 07/02/2024 Encounter Details Date Type Department Care Team (Late st Contact Info) Description 07/02/2024 Refill [facility] MEDICINE [address] [place] [address] Ceci Billings MD [address] [place] [address] Class 3 severe obesity with serious comorbidity [...] encounter Miscellaneous Notes * Telephone Encounter - Grisel Galan RN - 07/02/2024 1:58 PM EDT Next dose of zepbound pended, last dose picked up 06/11/24 * Telephone Encounter - Jerry Lockett - 07/02/2024 1:14 PM EDT Tc from pt requesting next dosage of med Tirzepatide-Weight Management (Zepbound) 2.5 MG/0.5ML solution auto-injector. Pt states that it should be 5 mg now. Contact pt at [phone] documented in this encounter Plan of Treatment Upcoming Encounters Date Type Department Care Team (Late st Contact Info) Description 07/24/2024 11:30 AM EDT Telemedicine [address] [address] Ceci Billings MD [address] [place] [address] documented as of this encounter Visit Diagnoses Diagnosis Class 3 severe obesity with serious comorbidity and body mass index (BMI) of 45.0 to 49.9 in adult, unspecified obesity type (CMS/HCC) documented in this encounter Additional Health Concerns Assessment Noted Time PHQ-9 Depression Total Score: 0 10/05/19 24 9:33 AM EDT documented as of this encounter Care Teams Financial Foundations Associate Relationship Specialty Start Date End Date Ceci Billings MD [address] [place] [address] PCP - General Family Medicine 06/02/20 documented as of this encounter
--- OUTSIDE RECORDS SUMMARY | 2024-07-03 14:12 | XMS_ITS | Encounter Summary ---
Author Organization [employer] Address [address] [facility] [address] 7[address] [place] [address] Care Team Providers Care Vp Analytics Name Role Phone Ceci Billings MD Primary Care Provide r Reason for Visit * Reason Comments Med Refill Encounter Details Date Type Department Care Team (Late st Contact Info) Description 06/27/2024 Refill [facility] MEDICINE [address] [place] [address] Ceci Billings MD [address] [place] [address] Lumbar radiculopathy, chronic; Crohn's disease of both [...] Info) Description 07/24/2024 11:30 AM EDT Telemedicine [facility] MEDICINE [address] [place] [address] Ceci Billings MD [address] [place] [address] documented as of this encounter Visit Diagnoses Diagnosis Lumbar radiculopathy, chronic Crohn's disease of both small and large intestine without complication (CMS/HCC) documented in this encounter Additional Health Concerns Assessment Noted Time PHQ-9 Depression Total Score: 0 10/05/19 24 9:33 AM EDT documented as of this encounter Care Teams Vp Analytics Relationship Specialty Start Date End Date Ceci Billings MD [address] [place] [address] PCP - General Family Medicine 06/02/20 documented as of this encounter
--- OUTSIDE RECORDS SUMMARY | 2024-07-03 14:12 | XMS_ITS | Encounter Summary ---
Author Organization [employer] Address [address] [facility] [address] 7t [place] [address] Care Team Providers Care Residential Remodeling Subcontractor Name Role Phone Ceci Billings MD Primary Care Provide r Reason for Visit * Reason Onset Date Comments Medication Question 03/12/2024 Encounter Details Date Type Department Care Team ([facility] Contact Info) Description 03/12/2024 Telephone [facility] MEDICINE [address] [place] [address] Ceci Billings MD [address] [place] [address] Medication Question Social History Tobacco Use Types [...] questions on med PA . Callback number [phone] documented in this encounter Plan of Treatment Upcoming Encounters Date Type Department Care Team (Late st Contact Info) Description 07/24/2024 11:30 AM EDT Telemedicine [facility] MEDICINE [address] [place] [address] Ceci Billings MD [address] [place] [address] documented as of this encounter Visit Diagnoses Not on filedocumented in this encounter Additional Health Concerns Assessment Noted Time PHQ-9 Depression Total Score: 0 10/05/19 24 9:33 AM EDT documented as of this encounter Care Teams Residential Remodeling Subcontractor Relationship Specialty Start Date End Date Ceci Billnigs MD [address] [place] [address] PCP - General Family Medicine 06/02/20 documented as of this encounter
--- OUTSIDE RECORDS SUMMARY | 2024-07-03 14:12 | XMS_ITS ---
Author Organization [facility] Address [address] [place] [address] Care Team Providers Care Rapier Insertion Loom Fixer Name Role Phone Summer Dwyer NP Primary Care Provider Unavailab Emerson Kotahri [phone] Encounters Encounter Location Date Provider Diagnosis [facility] [address] [place] [address] 06/05/2024 Emerson Canales Plan Of Treatment Next Appt Details Provider Name:Emerson Canales , 01/09/2025 01:20:00 PM, [address], [address], [place], [address], Progress Notes * STEPHIE DORSEYDOB: 7 (48 yo F)Acc No.[id number]:06/05/2024 Patient:?STEPHIE DORSEY :1975???Age:48 Y???Sex:Female Address:[address] [place] [address] * true * Date:? Generated for Printi gema/Enmanuel/eTransmitting on:?07/03/2024 02:12 PM EDT
--- OUTSIDE RECORDS SUMMARY | 2024-07-03 14:12 | XMS_ITS | Encounter Summary ---
Author Organization [employer] Address [address] 7[address] [place] [address] Care Team Providers Care Battery Tester Field Name Role Phone Ceci Billings MD Primary Care Provide r Encounter Details Date Type Department Care Team (Late st Contact Info) Description 04/23/2024 Orders Only [facility] MEDICINE [address] [place] [address] Ceci Billings MD [address] [place] [address] Social History Tobacco Use Types Packs/Day Years [...] Info) Description 07/24/2024 11:30 AM EDT Telemedicine [facility] MEDICINE [address] [place] [address] Ceci Billings MD [address] [place] [address] documented as of this encounter Visit Diagnoses Not on filedocumented in this encounter Additional Health Concerns Assessment Noted Time PHQ-9 Depression Total Score: 0 10/05/19 24 9:33 AM EDT documented as of this encounter Care Teams Battery Tester Field Relationship Specialty Start Date End Date Ceci Billings MD [address] [place] [address] PCP - General Family Medicine 06/02/20 documented as of this encounter
--- OUTSIDE RECORDS SUMMARY | 2024-07-03 14:13 | XMS_ITS | Encounter Summary ---
Author Organization [email or web address] Address [address] [facility] [address] 7[address] [place] [address] Care Team Providers Care Certified Welder Name Role Phone Ceci Billings MD Primary Care Provide r Encounter Details Date Type Department Care Team (Late st Contact Info) Description 06/07/2024 11:30 AM EST Office Visit [facility] [address] [place] [address] Ceci Billings MD [address] [place] [address] Fibromyalgia (Primary Dx); Class 3 severe obesity [...] (BMI) of 45.0 to 49.9 in adult (CMS/[facility]) Other constipation Fibromyalgia No family history on [...] THREE TIMES DAILY ASNEEDED 18 g 3 ejanijhonn-bnyopkpyzahof-xlhnprdn 50-325-40 MG tablet Take 1 tablet by [...] (BMI) of 45.0 to 49.9 in adult (CMS/[facility]) documented in this encounter Miscellaneous Notes * Assessment & Plan Note - Ceci Peacock MD - 06/07/2024 3:24 PM EST Associated Problem(s): Class 3 severe obesity with serious comorbidity and body mass index (BMI) of45.0 to 49.9 in adult ([facility]) Extensive counseling about healthy diet and exercise [...] Description 07/24/2024 11:30 AM EDT Telemedicine [facility] MEDICINE [address] [place] [address] Ceci Billings MD [address] [place] [address] documented as of this encounter Visit Diagnoses Diagnosis Fibromyalgia- Primary Unspecified myalgia and myositis Class 3 severe obesity with serious comorbidity and body mass index (BMI) of 45.0 to 49.9 in adult, unspecified obesity type (CMS/HCC) documented in this encounter Additional Health Concerns Assessment Noted Time PHQ-9 Depression Total Score: 0 10/05/19 24 9:33 AM EDT documented as of this encounter Care Teams Certified Welder Relationship Specialty Start Date End Date Ceci Billings MD [address] [place] [phone] PCP - General Family Medicine 06/02/20 documented as of this encounter
--- OUTSIDE RECORDS SUMMARY | 2024-07-03 14:13 | XMS_ITS ---
Author Organization [facility] Address [address] [place] [address] Care Team Providers Care Software Integrator Name Role Phone Reymundo WEEMS, Summer Primary Care Provider Unavailab Emerson Kothari [phone] REASON FOR VISIT waiting on ins for every 4 weeks stelara/ denied Encounters Encounter Location Date Provider Diagnosis [facility] [address] [place] [address] 06/14/2024 Emerson Canales Plan Of Treatment Next Appt Details Provider Name:Emerson Canales , 01/09/2025 01:20:00 PM, [address] [facility], [address], [place], [address], Progress Notes * STEPHIE LLOYDDOB: 7 (48 yo F)Acc No.[id number]:06/14/2024 Patient:?STEPHIE LLOYD :1975???Age:48 Y???Sex:Female Address:[address] [place] [address] * * Date:?
--- OUTSIDE RECORDS SUMMARY | 2024-07-03 14:13 | XMS_ITS | Encounter Summary ---
Author Organization [employer] Address [address] 7[address] [place] [address] Care Team Providers Care Client Administrator Name Role Phone Ceci Billings MD Primary Care Provide r Reason for Visit * Reason Comments Med Refill Encounter Details Date Type Department Care Team (Late st Contact Info) Description 06/11/2024 Refill [facility] MED[facility]INE [address] [place] [address] Ceci Billings MD [address] [place] [address] Crohn's disease of both small and large [...] Info) Description 07/24/2024 11:30 AM EDT Telemedicine [facility] MED[facility]INE [address] [place] [address] Ceci Billings MD [address] [place] [address] documented as of this encounter Visit Diagnoses Diagnosis Crohn's disease of both small and large intestine without complication (CMS/HCC) documented in this encounter Additional Health Concerns Assessment Noted Time PHQ-9 Depression Total Score: 0 10/05/19 24 9:33 AM EDT documented as of this encounter Care Teams Client Administrator Relationship Specialty Start Date End Date Ceci Billings MD [address] [place] [address] PCP - General Family Medicine 06/02/20 documented as of this encounter
--- OUTSIDE RECORDS SUMMARY | 2024-07-03 14:13 | XMS_ITS | Encounter Summary ---
Author Organization [employer] Address [address] [place] [address] 7t [place] [address] Care Team Providers Care Patient Escort Name Role Phone Ceci Billings MD Primary Care Provide r Encounter Details Date Type Department Care Team (Late st Contact Info) Description 05/27/2022 Telephone [facility] [address] [place] [address] Ceci Billings MD [address] [place] [address] Social History Tobacco Use Types Packs/Day Years [...] Info) Description 07/24/2024 11:30 AM EDT Telemedicine [facility] [address] [place] [address] Ceci Billings MD [address] [place] [address] documented as of this encounter Visit Diagnoses Not on filedocumented in this encounter Care Teams Patient Escort Relationship Specialty Start Date End Date Ceci Billings MD 230 [place] [address] PCP - General Family Medicine 06/02/20 documented as of this encounter
--- OUTSIDE RECORDS SUMMARY | 2024-07-03 14:13 | XMS_ITS | Encounter Summary ---
Author Organization [employer] Address [address] [place] [address] 7t [place] [address] Care Team Providers Care Cable Engineer Name Role Phone Ceci Billings MD Primary Care Provide r Reason for Visit * Reason Comments Med Refill Encounter Details Date Type Department Care Team (Late st Contact Info) Description 12/02/2022 Refill [facility] 230 [place] [address] Yaniv Pelaez MD [address] [place] [address] Insomnia, unspecified type Social History Tobacco Use [...] Info) Description 07/24/2024 11:30 AM EDT Telemedicine [facility] [address] [place] [address] Ceci Billings MD [address] [place], [place] [phone] documented as of this encounter Visit Diagnoses Diagnosis Insomnia, unspecified type documented in this encounter Additional Health Concerns Assessment Noted Time PHQ-9 Depression Total Score: 0 08/07/19 23 9:07 AM EDT documented as of this encounter Care Teams Cable Engineer Relationship Specialty Start Date End Date Ceci Billings MD 230 [place] [address] PCP - General Family Medicine 06/02/20 documented as of this encounter
--- OUTSIDE RECORDS SUMMARY | 2024-07-03 14:13 | XMS_ITS | Encounter Summary ---
Author Organization [employer] Address [address] [facility] [address] 7t [place] [address] Care Team Providers Care Compressor Operator Portable Name Role Phone Ceci Billings MD Primary [...] t he electric, gas, oil or water [employer] threatened to shut off services in your [...] Info) Description 07/24/2024 11:30 AM EDT Telemedicine [facility] [address] [place] [address] Ceci Billings MD [address] [place] [address] documented as of this encounter Visit Diagnoses Not on filedocumented in this encounter Additional Health Concerns Assessment Noted Time PHQ-9 Depression Total Score: 0 10/05/19 24 9:33 AM EDT documented as of this encounter Care Teams Compressor Operator Portable Relationship Specialty Start Date End Date Ceci Billings MD [address] [place] [address] PCP - General Family Medicine 06/02/20 documented as of this encounter
--- OUTSIDE RECORDS SUMMARY | 2024-07-03 14:13 | XMS_ITS | Encounter Summary ---
Author Organization [employer] Address [address] [place] [address] 7t [place] [address] Care Team Providers Care Community Coordinator Name Role Phone Ceci Billings MD Primary Care Provide r Reason for Visit * Reason Onset Date Comments Prior Authorization 05/28/2024 PARK Reques t: Zepbound Encounter Details Date Type Department Care Team (Late st Contact Info) Description 05/28/2024 Telephone [facility] 230 [place] [address] Ceci Billings MD 230 [place] [address] Prior Authorization (ZHENG NICK Request: Zepbound) Social [...] PA for Zepbound signed and [facility]. Confirmation received and sent to scan. If patient calls to check status on above, please advise them to contact [facility] at [phone]. * Telephone Encounter - Priscilla Bustillos - 05/28/2024 10:31 AM EST PA for Zepbound from [facility] placed on PCP desk for signature. Updated information for contraindication to Phemtermine had been added to request. documented in this encounter Plan of Treatment Upcoming Encounters Date Type Department Care Team (Late st Contact Info) Description 07/24/2024 11:30 AM EDT Telemedicine [facility] [address] [place] [address] Ceci Billings MD 230 [place] [address] documented as of this encounter Visit Diagnoses Not on filedocumented in this encounter Additional Health Concerns Assessment Noted Time PHQ-9 Depression Total Score: 0 10/05/19 24 9:33 AM EDT documented as of this encounter Care Teams Community Coordinator Relationship Specialty Start Date End Date Ceci Billings MD 230 [place] [address] PCP - General Family Medicine 06/02/20 documented as of this encounter
--- OUTSIDE RECORDS SUMMARY | 2024-07-03 14:13 | XMS_ITS | Encounter Summary ---
Author Organization [employer] Address [address] 7t [place] [address] Care Team Providers Care Bench Worker Binding Name Role Phone Ceci Billings MD Primary Care Provide r Reason for Visit * Reason Comments Med Refill Encounter Details Date Type Department Care Team (Late st Contact Info) Description 11/30/2023 Refill [facility] 230 [place] [address] Ceci Billings MD 230 [place] [address] Muscle spasm Social History Tobacco Use Types [...] 07/24/2024 11:30 AM EDT Telemedicine [facility] [address] [place] [address] Ceci Billings MD 230 [place] [address] documented as of this encounter Visit Diagnoses Diagnosis Muscle spasm Spasm of muscle documented in this encounter Additional Health Concerns Assessment Noted Time PHQ-9 Depression Total Score: 0 10/05/19 24 9:33 AM EDT documented as of this encounter Care Teams Bench Worker Binding Relationship Specialty Start Date End Date Ceci Billings MD [address] [place] [address] PCP - General Family Medicine 06/02/20 documented as of this encounter
--- OUTSIDE RECORDS SUMMARY | 2024-07-03 14:13 | XMS_ITS | Encounter Summary ---
Author Organization [employer] Address [address] [facility] 7t [place] [address] Care Team Providers Care Barbecue Cook Name Role Phone Ceci Billings MD Primary Care Provide r Reason for Visit * Reason Comments Med Refill Encounter Details Date Type Department Care Team (Late Contact Info) Description 04/30/2022 Refill [facility] 230 [place] [address] Jesús Vale MD 230 [place] [address] Influenza-like illness Social History Tobacco Use Types [...] Info) Description 07/24/2024 11:30 AM EDT Telemedicine [facility] [address] [place] [address] Ceci Billings MD [address] [place] [address] documented as of this encounter Visit Diagnoses Diagnosis Influenza-like illness documented in this encounter Care Teams Barbecue Cook Relationship Specialty Start Date End Date Ceci Billings MD [address] [place] [address] PCP - General Family Medicine 06/02/20 documented as of this encounter
== END 2024-07-03 13:20 | disposition home or self-care (01) ==
LOC: HO.HWSM 11:27
PROVIDERS: PCP Internal Medicine; Visit Provider Advanced Practice Midwife
DX: Z01.419 Encounter for gynecological examination (general) (routine) without abnormal findings (principal); N93.9 Abnormal uterine and vaginal bleeding, unspecified; Z97.5 Presence of (intrauterine) contraceptive device; N71.1 Chronic inflammatory disease of uterus; E66.01 Morbid (severe) obesity due to excess calories
CPT/HCPCS: 99396; 99459

== ENCOUNTER 2024-07-03 14:06 | Outpatient (REF) | payer MEDICAID, SELFPAY ==
[2024-07-06 15:08] LABS: HPV Genotype 16 Negative (Negative); HPV Genotype 18 Negative (Negative); HPV High Risk Negative (Negative)
== END 2024-07-03 14:07 | disposition home or self-care (01) ==
LOC: HO.LNP 14:06
PROVIDERS: Visit Provider Advanced Practice Midwife
DX: Z00.00 Encounter for general adult medical examination without abnormal findings (principal); N89.8 Other specified noninflammatory disorders of vagina
CPT/HCPCS: 87626; 88175

== ENCOUNTER 2024-07-12 13:35 | Outpatient (REF) | payer MEDICAID, SELFPAY ==
--- OUTSIDE RECORDS SUMMARY | 2024-07-12 16:08 | XMS_ITS | Encounter Summary ---
Author Organization [employer] Address [address] 7t [place] [address] Care Team Providers Care Surgery Teacher Name Role Phone Ceci Billings MD Primary Care Provide r Encounter Details Date Type Department Care Team (Late st Contact Info) Description 07/06/2024 Population Health Risk Score [facility] ([facility]) Department [address] [facility] [address] [place] [id number] Provider, Population Health Generic Social History Tobacco Use Types Packs/Day Years [...] Info) Description 07/24/2024 11:30 AM EDT Telemedicine [facility] [address] [place] [address] Ceci Billings MD [address] [place] [address] documented as of this encounter Visit Diagnoses Not on filedocumented in this encounter Additional Health Concerns Assessment Noted Time PHQ-9 Depression Total Score: 0 10/05/19 24 9:33 AM EDT documented as of this encounter Care Teams Surgery Teacher Relationship Specialty Start Date End Date Ceci Billings MD [address] [place] [id number] PCP - General Family Medicine 06/02/20 documented as of this encounter
--- OUTSIDE RECORDS SUMMARY | 2024-07-12 16:08 | XMS_ITS | Clinical Summary ---
Author Organization [facility] Address [address] [place] [address] Phone Care Team Providers Care Store Keeper Name Role Phone Katrina Sherwood MD Primary Care Provider [phone] Allergies Active Allergy Reactions Criticality Noted Date [...] by mouth at bedtime as needed. Active Hospital, Clinic, or Other Facility Administered Medication Ordered Dose Route Frequency Start Date End Date Status lidocaine (PF) (XYLOCAINE-MPF) 1 % injection 0.5 mLIndications:Planta r fasciitis .5 mL inj Once PRN Procedure 07/09/2024 07/09/2024 Ended triamcinolone acetonide (KENALOG-40) 40 mg/mL injection 40 mgIndications:Planta r fasciitis 40 mg IAtc Once PRN Procedure 07/09/2024 07/09/2024 Ended Encounters Date Type Department Care Team Description 07/09/2024 8:30 AM EDT Office Visit Orthopedic Surgery [address] [phone] Juan Moody DPM Lumbosacral radiculopathy (Primary Dx); Posterior tibial tendinitis of right leg; Equinus contracture of right ankle; Plantar fasciitis 05/10/2024 9:00 AM EST Office Visit Orthopedic Surgery [facility] [address] [address] Juan Moody DPM Lumbosacral radiculopathy (Primary Dx); [...] - - Weight 127 kg (280 lb) 07/09/2024 8:22 AM EDT Height 165.1 cm (5' 5 ) 07/09/2024 8:22 AM EDT Body Mass Index 46.59 07/09/2024 8:22 AM EDT Plan of Treatment Upcoming Encounters Date Type Department Care Team (Late st Contact Info) Description 09/10/2024 8:30 AM EDT Office Visit Orthopedic Surgery - [place] [address] [facility] 250 [place] [address] Juan Moody, DPAng 175 [facility] 250 [place] [address] Health Maintenance Due Date Last Done Comments [...] Diagnosis Comments INJECTION TENDON OR LIGAMENT Routine 07/09/2024 8:30 AM EDT Plantar fasciitis INJECTION TENDON OR LIGAMENT Routine 05/10/2024 9:00 AM EST Plantar fasciitis, right LIPID PANEL Routine 08/06/2022 HM HPV Routine 11/09/2021 from Last 3 Months or Most Recently Relevant to Health Maintenance Results * Injection tendon or ligament (07/09/2024 8:30 AM EDT) Narrative Juan Moody DPM - 07/09/2024 8:30 AM EDT Juan Moody DPM ? 07/09/2024 ??7:26 PM Injection tendon or ligament Indications: pain Details: 25 G needle Medications: 0.5 mL lidocaine (PF) 1 %; 40 mg triamcinolone acetonide 40 mg/mL Informed Consent: ??Laterality: ??Bilateral Juan Moody DPM IN CLINIC/BEDSIDE ORDERABLE S Final Result * Injection tendon or ligament (05/10/2024 9:00 AM EST) Narrative Juan Moody DPM - 05/10/2024 9:00 AM EST Juan Moody DPM ? 05/10/2024 12:37 PM Injection tendon or ligament Indications: pain Details: 25 G needle Medications: 0.5 mL lidocaine (PF) 1 %; 40 mg triamcinolone acetonide 40 mg/mL Informed Consent: ??Laterality: ??Right us Juan Moody DPM IN CLINIC/BEDSIDE ORDERABLE S Final Result * Lipid panel (08/06/2022) Pathologist [facility] LDL/HDL Ratio 0 Comment:no interpretation, a bstracted Triglycerides 0 mg/dL Comment:no interpretation, a bstracted Cholesterol 0 mg/dL Comment:no interpretation, a bstracted HDL 0 mg/dL Comment:no interpretation, a bstracted LDL Cholesterol 0 mg/dL Comment:no interpretation, a bstracted Blood Venous blood specimen / Unknown Historical Provider LAB BLOOD ORDERABLES Marcelina l Result * Cervical Cancer Screening: HPV (11/09/2021) Pathologist [facility] Cervical Cancer Screening: HPV abstracted Historical Provider HEALTH MAINTENANCE Final Result from Last 3 Months or Most Recently Relevant to Health Maintenance Insurance MEDICAID - [place] Care Teams Store Keeper Relationship Specialty Start Date End Date [place], MD Katrina [address] [phone] PCP - General Internal Medicine 01/02/14
--- OUTSIDE RECORDS SUMMARY | 2024-07-12 16:08 | XMS_ITS ---
Author Organization [facility] Address [address] [place] [address] Care Team Providers Care Job Trainer Name Role Phone Reymundo WEEMS, Summer Primary Care Provider Unavailab Emerson Kothari [phone] REASON FOR VISIT Stelara Q 4 weeks Rx Encounters Encounter Location Date Provider Diagnosis [facility] [address] [place] [address] 06/22/2024 Emerson Canales Plan Of Treatment Next Appt Details Provider Name:Emerson Canales , 01/09/2025 01:20:00 PM, [address] [facility], [address], [place], [address], Progress Notes * STEPHIE LLOYDDOB: 7 (48 yo F)Acc No.[id number]:06/22/2024 Patient:?STEPHIE LLOYD :1975???Age:48 Y???Sex:Female Address:[address] [place] [address] * true * Date:? Generated for Randolphi gema/Enmanuel/eTransmitting on:?07/12/2024 04:08 PM EDT
--- OUTSIDE RECORDS SUMMARY | 2024-07-12 16:09 | XMS_ITS | Encounter Summary ---
Author Organization [employer] Address [address] [place] [address] Care Team Providers Care Cellophane Casting Machine Repairer Name Role Phone Ceci Billings MD Primary Care Provide r Reason for Visit * Reason Comments Med Refill Encounter Details Date Type Department Care Team (Late st Contact Info) Description 06/27/2024 Refill [facility] [address] [place] [address] Ceci Billings MD [address] [place] [address] Lumbar radiculopathy, chronic; Crohn's disease of both [...] Info) Description 07/24/2024 11:30 AM EDT Telemedicine [facility] [address] [place] [address] Ceci Billings MD [address] [place] [address] documented as of this encounter Visit Diagnoses Diagnosis Lumbar radiculopathy, chronic Crohn's disease of both small and large intestine without complication (CMS/HCC) documented in this encounter Additional Health Concerns Assessment Noted Time PHQ-9 Depression Total Score: 0 10/05/19 24 9:33 AM EDT documented as of this encounter Care Teams Cellophane Casting Machine Repairer Relationship Specialty Start Date End Date Ceci Billings MD [address] [place] [id number] PCP - General Family Medicine 06/02/20 documented as of this encounter
--- OUTSIDE RECORDS SUMMARY | 2024-07-12 16:09 | XMS_ITS | Encounter Summary ---
Author Organization [employer] Address [address] 7[address] [place] [address] Care Team Providers Care Electronic Sales And Service Technician Name Role Phone Ceci Billings MD Primary Care Provide r Encounter Details Date Type Department Care Team (Late st Contact Info) Description 07/27/2023 Orders Only [facility] [address] [place] [address] Ceci Billings MD [address] [place] [address] Class 3 severe obesity with serious comorbidity [...] 07/24/2024 11:30 AM EDT Telemedicine [facility] [address] [place] [address] Ceci Billings MD [address] [place] [address] documented as of this encounter Visit Diagnoses Diagnosis Class 3 severe obesity with serious comorbidity and body mass index (BMI) of 45.0 to 49.9 in adult, unspecified obesity type (CMS/HCC)- Primary documented in this encounter Additional Health Concerns Assessment Noted Time PHQ-9 Depression Total Score: 5 07/07/19 24 10:12 AM EDT documented as of this encounter Care Teams Electronic Sales And Service Technician Relationship Specialty Start Date End Date Ceci Billings MD [address] [place], [place] [phone] PCP - General Family Medicine 06/02/20 documented as of this encounter
--- OUTSIDE RECORDS SUMMARY | 2024-07-12 16:09 | XMS_ITS | Encounter Summary ---
Author Organization [employer] Address [address] [place] [address] 7[address] [place] [address] Care Team Providers Care Professor Of Engineering Name Role Phone Ceci Billings MD Primary Care Provide r Reason for Visit * Reason Comments Med Refill Encounter Details Date Type Department Care Team (Late st Contact Info) Description 12/02/2022 Refill [facility] [address] [place] [address] Yaniv Pelaez MD [address] [place] [address] Insomnia, unspecified type Social History Tobacco Use [...] Info) Description 07/24/2024 11:30 AM EDT Telemedicine [facility] [address] [place] [address] Ceci Billings MD [address] [place], [place] [phone] documented as of this encounter Visit Diagnoses Diagnosis Insomnia, unspecified type documented in this encounter Additional Health Concerns Assessment Noted Time PHQ-9 Depression Total Score: 0 08/07/19 23 9:07 AM EDT documented as of this encounter Care Teams Professor Of Engineering Relationship Specialty Start Date End Date Ceci Billings MD 230 [place] [address] PCP - General Family Medicine 06/02/20 documented as of this encounter
--- OUTSIDE RECORDS SUMMARY | 2024-07-12 16:09 | XMS_ITS | Encounter Summary ---
Author Organization [facility] Address [address] [place] [address] Care Team Providers Care Lens Marker Name Role Phone Katrina Sherwood MD Primary Care Provider [phone] Reason for Visit * Reason Comments Foot Pain Posterior tibial ten dinitis of right legEquinus contracture of right ankleLumbosacral radiculopathyMorton's neuroma of right footPlantar fasciitis, right Encounter Details Date Type Department Care Team (Latest Contact Info) Description 07/09/2024 8:30 AM EDT Office Visit Orthopedic Surgery - [place] [address] [phone] Juan Moody, DPAng [address] [address] Lumbosacral radiculopathy (Primary Dx); Posterior tibial tendinitis of right leg; Equinus contracture of right ankle; Plantar fasciitis Social History Tobacco Use Types Packs/Day Years Used Date Smoking Tobacco: Never Assessed Comments Unknown Sex and Gender Information Value Date Recorded Sex Assigned at Not on file Legal Sex Female 1:24 PM EST Gender Identity Not on file Sexual Orientation Not on file documented as of this encounter Last Filed [...] Mass Index 46.59 07/09/2024 8:22 AM EDT documented in this encounter Progress Notes * Juan Moody DPM - 07/09/2024 8:30 AM EDTAssociated Order(s): Injection tendon or ligament IDENTIFIER: @IMAN Lloyd is a 48 y.o. year old female who presents for consultation. CC: Right foot pain HPI: 48-year-old female returns office for bilateral foot pain. Patient notes that first up in the morning is increasingly been more painful to the left and right heel. Patient has been doing her stretching exercises wearing good shoes. Patient has been using orthotics as well. Patient is here for evaluation treatment ROS: GENERAL: Pt denies nausea, fever, vomiting, chills, or shortness of breath. Pt in NAD. CARDIOLOGY: pt denies chest pain, palpitations LUNGS: pt denies shortness of breath MUSCULOSKELETAL: See HPI, otherwise no joint pain or swelling, back pain, or muscle pain. SKIN: see HPI, otherwise no lesions, rash or itching NEURO: No persistent headache, weakness or numbness The remainder of the review of systems is noncontributory PAST MEDICAL HISTORY: There is no problem list on file for this patient. SOCIAL HISTORY: Social History Tobacco Use Smoking status: Not on file Smokeless tobacco: Not on file Substance Use Topics Alcohol use: Not on file ACTIVE MEDICATIONS: Outpatient Medications Marked as Taking for the 07/09/24 encounter (Office Visit) with Juan Moody DPM Medication Sig Dispense Refill albuterol sulfate (Proair Digihaler) 90 mcg/actuation aero powdr breath act w/sensor Inhale into the lungs. baclofen (LIORESAL) 20 mg tablet Take 1 Tablet by mouth 3 times daily. dicyclomine (BENTYL) 10 mg/5 mL syrup Take 10 mL by mouth 4 times daily (before meals and nightly). fexofenadine (LUISA) 180 mg tablet Take 1 tablet (180 mg total) by mouth 1 (one) time each day. FLUTICASONE PROPIONATE INHL Inhale into the lungs. gabapentin (NEURONTIN) 300 mg capsule Take 1 capsule (300 mg total) by mouth 2 (two) times a day. meloxicam (Mobic) 15 mg tablet Take 1 tablet (15 mg total) by mouth 1 (one) time each day. montelukast (SINGULAIR) 10 mg tablet Take 1 Tablet by mouth at bedtime. pantoprazole (PROTONIX) 40 mg EC tablet Take 1 tablet (40 mg total) by mouth 1 (one) time each day. sertraline (ZOLOFT) 50 mg tablet Take 1 tablet (50 mg total) by mouth 1 (one) time each day. triamcinolone acetonide (KENALOG-40) 40 mg/mL injection Inject 0.5 mL into the articular space oncefor 1 dose. ustekinumab (Stelara) 90 mg/mL syringe Inject 90 mg into the skin daily. zolpidem (AMBIEN) 10 mg tablet Take 1 tablet (10 mg total) by mouth at bedtime as needed. ALLERGIES: @ALL@ PHYSICAL EXAM: Height 1.651 m (65 ), weight 127 kg (280 lb). PODIATRIC EXAMINATION: GENERAL: Patient appears well nourished, with NAD. VASCULAR: Dorsalis pedis pulses are 2/4 bilaterally and Posterior tibial pulses are 2/4 bilaterally. Capillary filling time within normal limits the digits. No pallor on elevation or rubor on dependency. Positive hair growth. No varicosities. Denies rest pain or claudication pain. NEUROLOGICAL: Sharp/dull sensation intact, protective sensation intact on [place]. Tingling sharp shooting pain radiating into the leg from the bottom of the foot up. ORTHOPEDIC: Good muscle strength 5/5 of all flexors and extensors. Dorsi flexion of ankle , less than 90 degrees bilateral, plantar flexion WNL. No muscle atrophy. Return of increasing continued painon palpation of the medial tubercle of the right and left heel. Patient's sharp shooting pain within the second or space in the right foot has resolved. Digits are reducibly contractible 2 through 5 bilaterally. Mild medial eminence with a HAV deformity of the left foot. Pain along the medial course of the right ankle following the posterior tibial tendon. DERMATOLOGICAL:.No masses or skin lesions noted. Normal skin temperature, normal skin turgor. BIOMECHANICS: STJ ROM wnl, MTJ ROM wnl, 1st MPJ ROM wnl. IMPRESSION: 1. Lumbosacral radiculopathy 2. Posterior tibial tendinitis of right leg 3. Equinus contracture of right ankle 4. Plantar fasciitis, right PLAN: Pt was seen and examined, history reviewed. Patient orthotics were fit with a medial longitudinal arch pad and instructed to use it at all times for the next 2 weeks. Patient understands that if this helps with her knee pain but it may be worth looking into getting a higher arch support for daily activity Patient was once again educated on radiculopathy and the causes of radiating pain within the lower extremities bilaterally. Patient is being worked up by a test driller for this pain Patient continues to deal with tingling numbness of the bilateral feet with sharp shooting radiating pain. Patient was educated that is most likely secondary to lower back pathology. Patient was encouraged to use topicals as needed for this Patient being treated for Planter fasciitis Conservative treatment options discussed and the decision made to try an corticosteroid injection today. Risks and benefits explained to patient. Injection to the area was performed after written consent was obtained. Risks and benefits discussed in detail with patient and include but are not limited to risk of infection risk of recurrence risk of steroid flare. Injection given to the right and left heel of half cc 1% lidocaine half cc of Kenalog 40 Patient understands that the first three days status post injection, the site may feel sore. Patient is to ice and elevate during this time. Patient understands that the injection is to decrease inflammation and reduce flares. Patient understands that it is variable how long the injection lasts. All questions answered. Injection tendon or ligament Indications: pain Details: 25 G needle Medications: 0.5 mL lidocaine (PF) 1 %; 40 mg triamcinolone acetonide 40 mg/mL Informed Consent: Laterality: Bilateral Juan Moody DPM documented in this encounter Plan of Treatment Upcoming Encounters Date Type Department Care Team (Late st Contact Info) Description 09/10/2024 8:30 AM EDT Office Visit Orthopedic Surgery - [place] [id number] [phone] Juan Moody DPM 175 [facility] [address] [place] [address] documented as of this encounter Procedures Procedure Name Priority Date/Time Associated Diagnosis Comments INJECTION TENDON OR LIGAMENT Routine 07/09/2024 8:30 AM EDT Plantar fasciitis documented in this encounter Results * Injection tendon or ligament (07/09/2024 8:30 AM EDT) Narrative Juan Moody DPM - 07/09/2024 8:30 AM EDT Juan Moody DPM ? 07/09/2024 ??7:26 PM Injection tendon or ligament Indications: pain Details: 25 G needle Medications: 0.5 mL lidocaine (PF) 1 %; 40 mg triamcinolone acetonide 40 mg/mL Informed Consent: ??Laterality: ??Bilateral us Juan Moody DPM IN CLINIC/BEDSIDE ORDERABLE S Final Result documented in this encounter Visit Diagnoses Diagnosis Lumbosacral radiculopathy- Primary Thoracic or lumbosacral neuritis or radiculitis, unspecified Posterior tibial tendinitis of right leg Equinus contracture of right ankle Plantar fasciitis Plantar fascial fibromatosis documented in this encounter Administered Medications Inactive Administered Medications - up to 3 most recent administrations Medication Order MAR Action Action Date Dose Rate Site lidocaine (PF) (XYLOCAINE-MPF) 1 % injection 0.5 mL 0.5 mL, injection, Once PRN Procedure, Starting on Tue07/09/24 at 0830, For 1 doseIndications:Plantar fasciitis Given 07/09/2024 8:30 AM EDT 0.5 mL triamcinolone acetonide (KENALOG-40) 40 mg/mL injection 40 mg 40 mg, intra-articular, Once PRN Procedure, Starting on 07/09/24 at 0830, For 1 doseIndications:Plantar fasciitis Given 07/09/2024 8:30 AM EDT 40 mg documented in this encounter Care Teams Lens Marker Relationship Specialty Start Date End Date Katrina Sherwood MD [address] [place] [phone] PCP - General Internal Medicine 01/02/14 documented as of this encounter
--- OUTSIDE RECORDS SUMMARY | 2024-07-12 16:09 | XMS_ITS | Encounter Summary ---
Author Organization [employer] Address [address] [facility] [address] [place] [address] Care Team Providers Care Vertical Roll Operator Name Role Phone Ceci Billings MD Primary Care Provide r Reason for Visit * Reason Comments Med Refill Encounter Details Date Type Department Care Team (Late st Contact Info) Description 06/22/2024 Refill [facility] MEDICINE [address] [place] [address] Ceci Billings MD [address] [place] [address] Migraine without aura, not refractory Social History [...] Info) Description 07/24/2024 11:30 AM EDT Telemedicine [facility] MEDICINE [address] [place] [address] Ceci Billings MD [address] [place] [address] documented as of this encounter Visit Diagnoses Diagnosis Migraine without aura, not refractory documented in this encounter Additional Health Concerns Assessment Noted Time PHQ-9 Depression Total Score: 0 10/05/19 24 9:33 AM EDT documented as of this encounter Care Teams Vertical Roll Operator Relationship Specialty Start Date End Date Ceci Billings MD [address] [place] [address] PCP - General Family Medicine 06/02/20 documented as of this encounter
--- OUTSIDE RECORDS SUMMARY | 2024-07-12 16:09 | XMS_ITS | Encounter Summary ---
Author Organization [facility] [employer] [facility] Address [address] [facility] [address] [place] [address] Care Team Providers Care Exchange Teller Name Role Phone Ceci Billings MD Primary Care Provide r Reason for Visit * Reason Onset Date Comments Medication Question 03/12/2024 Encounter Details Date Type Department Care Team ([facility] Contact Info) Description 03/12/2024 Telephone [facility] MEDICINE [address] [place] [address] Ceci Billings MD [address] [place] [address] Medication Question Social History Tobacco Use Types [...] questions on med PA . Callback number [phone] documented in this encounter Plan of Treatment Upcoming Encounters Date Type Department Care Team (Late st Contact Info) Description 07/24/2024 11:30 AM EDT Telemedicine [facility] MEDICINE [address] [place] [address] Ceci Billings MD [address] [place] [address] documented as of this encounter Visit Diagnoses Not on filedocumented in this encounter Additional Health Concerns Assessment Noted Time PHQ-9 Depression Total Score: 0 10/05/19 24 9:33 AM EDT documented as of this encounter Care Teams Exchange Teller Relationship Specialty Start Date End Date Ceci Billings MD [address] [place] [address] PCP - General Family Medicine 06/02/20 documented as of this encounter
--- OUTSIDE RECORDS SUMMARY | 2024-07-12 16:09 | XMS_ITS ---
Author Organization [facility] Address [address] [place] [address] Care Team Providers Care Supervisor Research [employer] Name Role Phone Reymundo WEEMS, Summer Primary Care Provider Unavailab Emerson Kothari [phone] REASON FOR VISIT waiting on ins for every 4 weeks stelara/ denied Encounters Encounter Location Date Provider Diagnosis [facility] [address] [place] [address] 06/14/2024 Emerson Canales Plan Of Treatment Next Appt Details Provider Name:Emerson Canales , 01/09/2025 01:20:00 PM, [address], [address], [place], [address], Progress Notes * STEPHIE LLOYDDOB: 7 (48 yo F)Acc No.[id number]:06/14/2024 Patient:?STEPHIE LLOYD :1975???Age:48 Y???Sex:Female Address:[address] [place] [address] * true * Date:? Generated for Randolphi gema/Enmanuel/eTransmitting on:?07/12/2024 04:09 PM EDT
--- OUTSIDE RECORDS SUMMARY | 2024-07-12 16:09 | XMS_ITS | Clinical Summary ---
Author Organization [employer] Address 75 [facility] 7t [place] [address] Care Team Providers Care Emergency Generator Mechanic Name Role Phone Ceci Billings MD Primary [...] times daily. 40 tablet 2 06/07/19 25 Active senna (Senokot) 8.6 MG tabletIndication [...] 90 tablet 1 02/16/20 23 025 Discontinued acetaminophen (Tylenol 8 Hour) 650 [...] appointment I will inquie about PA for natividadrazia Assessment & Plan (10/05/2023 12:37 PM EDT): [...] Encounters Date Type Department Care Team Description 07/06/2024 Population Health Risk Score [facility] Department [address] [place] [address] Provider, Population Health Generic 07/03/2024 Orders Only [facility] [address] [place] [address] ProviderChito MD 07/02/2024 Refill [facility] [address] [place] [address] Ceci Billings MD Class 3 severe obesity with serious comorbidity and body mass index (BMI) of 45.0 to 49.9 in adult, unspecified obesity type ([facility]/HCC) 06/27/2024 Refill [facility] [address] [place], [place] [phone] Ceci Billings MD Lumbar radiculopathy, chronic; Crohn's disease of both small and large intestine without complication ([facility]) 06/22/2024 Refill [facility] [address] [place] [address] Ceci Billings MD Migraine without aura, not refractory 06/11/2024 Refill [facility] [address] [place] [address] Ceci Billings MD Crohn's disease of both small and large intestine without complication ([facility]) 06/07/2024 11:30 AM EST Office Visit [facility] [address] [place] [address] Ceci Billings MD Fibromyalgia (Primary Dx); Class 3 severe obesity with serious comorbidity and body mass index (BMI) of 45.0 to 49.9 in adult, unspecified obesity type ([facility]) 06/07/2024 Travel 05/28/2024 Telephone [facility] [address] [place] [address] Ceci Billings MD Prior Authorization ( PA Request: [employer]ep[employer]) 05/25/2024 Patient Outreach [facility] [address] [place] [phone] Ceci Billings MD Pre-visit Planning (SDOH screening negative and tobacco screening negative) 05/22/2024 Refill [facility] [address] [place] [address] Ceci Billings MD 05/08/2024 Telephone [facility] [address] [place] [address] Ceci Billings MD Prior Authorization ( PARK Request: [employer]ep[employer]) 04/24/2024 9:00 AM EST Office Visit [address] [address] Ceci Billings MD Neuropathy (Primary Dx); Lumbar radiculopathy, chronic; Class 3 severe obesity with serious comorbidity and body mass index (BMI) of 45.0 to 49.9 in adult, unspecified obesity type (CMS/HCC); Insomnia, unspecified type; Heartburn; Migraine without aura, not refractory 04/24/2024 Travel 04/23/2024 Orders Only [address] [address] Ceci Billings MD 04/23/2024 Travel from Last 3 Months Immunizations Name Administration [...] 10:16 AM EDT Sexual Orientation Straight 03/07/2024 6 :04 PM EST Last Filed Vital Signs Vital [...] Info) Description 07/24/2024 11:30 AM EDT Telemedicine [facility] [address] [place] [address] Ceci Billings MD [address] [place] [address] Health Maintenance Due Date Last Done Comments CT Colonography 1976 FIT DNA/Cologuard 1976 FIT 1975 FOBT 1975 HIV Screening 1975 Sigmoidoscopy 1976 Alcohol/Substance Use Screening 1988 Family Planning (PISQ) 09/12/1991 Hepatitis C Screening 1994 Pap Smear 1997 COVID-19 Vaccine (2023- season) 2023 08/19/2020, 07/11/2020 Influenza Vaccine (#1) [...] Procedure Name Priority Date/Time Associated Diagnosis Comments BACTERIAL VAGINOSIS PANEL Routine 07/03/2024 12:00 AM EDT CHLAMYDIA/N. GONORRHOEAE RNA, TMA, UROGENITAL Routine 07/03/2024 12:00 AM EDT HM COLONOSCOPY Routine 08/23/2023 11:53 AM EDT BI MAMMOGRAM DIAGNOSTIC TOMOSYNTHESIS BILATERAL Routine 04/04/2023 3:40 PM EST LIPID PANEL, STANDARD Routine 08/06/2022 10:02 AM EDT Migraine without aura, not refractory ZZZ HISTORICAL HPV E6/E7 RFLX JESSICA 16 18/45 Routine 11/09/2021 2:40 PM EDT from Last 3 Months or Most Recently Relevant to Health Maintenance Results * Bacterial Vaginosis (07/03/2024 12:00 AM EDT) TRICHOMONAS VAGINALIS DETECTION BY PCR NOT DETECTED Not Detect [facility] BACTERIAL VAGINOSIS DETECTION BY PCR NEGATIVE Negative [facility] Comment:The BV organism targ ets of the Xpert Xpress MVP test can becommensal in women; Xpert Xpress MVP positive results forbacterial vaginosis should be considered in conjunction withother clinical and patient information to determine thedisease status. Organisms that are not detected by the XpertXpress MVP test have also been reported to be associatedwith BV and aerobic vaginitis.The Xpert Xpress MVP test performance has not been evaluatedin patients under the age of 14. JENI GROUP DETECTION BY PCR NOT DETECTED Not Detect [facility] Jeni glab krusei PCR NOT DETECTED Not Detect [facility] 07/03/2024 07/03/2024 us Generic External Data Provider LAB MICROBIOLOGY - GENERAL ORDERABLES Final Result [facility] [address] [place] [phone] * Chlamydia/N. Gonorrhoeae RNA, TMA, Urogenitial (07/03/2024 12:00 AM EDT) CT PCR NOT DETECTED Not Detect. [facility] Comment:A not detected test result does not exclude the possibilityof infection because test results can be affected byimproper specimen collection, concurrent antibiotic therapy,or the number of organisms in the specimen which may bebelow the sensitivity of the test. As with many diagnostictests, results from the Xpert CT/NG assay should beinterpreted in conjunction with other laboratory andclinical data available to the clinician.Xpert CT/NG performance has not been evaluated in patientsless than 14 years of age. The assay should not be used forthe evaluationof suspected sexual abuse or for other medico-legalindications. Additional testing is recommended in anycircumstance when false positive or false negative resultscould lead to adverse medical, social or psychologicalconsequences. NG PCR NOT DETECTED Not Detect. [facility] Comment:A not detected test result does not exclude the possibilityof infection because test results can be affected byimproper specimen collection, concurrent antibiotic therapy,or the number of organisms in the specimen which may bebelow the sensitivity of the test. As with many diagnostictests, results from the Xpert CT/NG assay should beinterpreted in conjunction with other laboratory andclinical data available to the clinician.Xpert CT/NG performance has not been evaluated in patientsless than 14 years of age. The assay should not be used forthe evaluationof suspected sexual abuse or for other medico-legalindications. Additional testing is recommended in anycircumstance when false positive or false negative resultscould lead to adverse medical, social or psychologicalconsequences. 07/03/2024 07/03/2024 Narrative [facility] - 07/04/2024 5:16 AM EDT Vaginal us Generic External Data Provider LAB MICROBIOLOGY - GENERAL ORDERABLES Final Result [facility] [address] [place] [phone] * Hm Colonoscopy (08/23/2023 11:53 AM EDT) Historical Provider HEALTH MAINTENANCE Final Result * BI Mammogram Diagnostic Tomosynthesis Bilateral (04/04/2023 3:40 PM EST) Anatomical Region Laterality Modality Breast Bilateral Mammography 04/04/2023 3:40 PM EST Narrative 04/04/2023 4:30 PM EST ? [facility] ? [address] ?[place] [address] ? Mammography Report ? Signed ? Patient: Windy Mcfarlane ?MR# ?? : [id number] ? : 1975 ?Acct:[id number] ? Age/Sex: 47 / F ?ADM Date: 12/11/23 ? Loc: HO.MAMMO ? Attending Dr: Sotero Tyson MD ? Ordering Physician: Cuauhtemoc Tolliver MD ?Results: 2Benig ?? n Findings ? Date of Service: 04/04/23 ?Follow Up: 1 Year From Orig ?? inal Mammogram ? Procedure(s): MM tomosynthesis diagnostic BI ?? Accession Number(s): [id number] ? cc: Ceci Billings MD; Cuauhtemoc Tolliver [...] signed by Eliel Chiu MD in OV> ?04/04/23 1627 ? DD/DT: 04/04/0 ? TD/TT: ? Environmental Compliance Inspector: ? Procedure Note [facility] - 04/04/2023 [facility] [address] [place], [place] [address] Mammography Report Signed Patient: Windy McfarlaneMR# : [id number] : 1975Acct:[id number] Age/Sex: 47 / FADM Date: 04/04/23 Loc: HO.MAMMO Attending Dr: Sotero Tyson MD Ordering Physician: Cuauhtemoc Tolliver MDResults: 2Benig n Findings Date of Service: 04/04/23Follow Up: 1 Year From Orig inal Mammogram Procedure(s): MM tomosynthesis diagnostic BI Accession Number(s): [id number] cc: Ceci Billings MD; Cuauhtemoc Tolliver MD [...] in OV> 04/04/23 1627 DD/ 1540 TD/TT: Environmental Compliance Inspector: [facility] External Provider IMG BI PROCEDURES Final Result * Lipid Panel, Standard (08/06/2022 10:02 AM EDT) Cholesterol, Total 144 <200 mg/dL [facility] HDL Cholesterol 58 > OR = 50 mg/dL [facility] Triglycerides 49 <150 mg/dL [facility] LDL Cholesterol 72 mg/dL (calc) [facility] Comment: Reference range: <100 Desirable range <100 mg/dL for primary prevention; ?? <70 mg/dL for patients with CHD or diabetic patients with > or = 2 CHD risk factors. LDL-C is now calculated using the Christophe calculation, which is a validated novel method providing better accuracy than the Friedewald equation in the estimation of LDL-C. Blayne PEREZ et al. NICHELLE. 2013;310(19): 9100-0619 (http://education.[employer]/faq/YOT027) Chol/HDLC Ratio 2.5 <5.0 (calc) [facility] Non-HDL Cholesterol 86 <130 mg/dL (calc) [facility] Comment: For patients with diabetes plus 1 major ASCVD risk factor, treating to a non-HDL-C goal of <100 mg/dL (LDL-C of <70 mg/dL) is considered a therapeutic option. Blood Venous blood specimen / Unknown 08/06/2022 10:02 AM EDT 08/06/2022 10:02 AM EDT Narrative [facility] - 08/07/2022 2:37 AM EDT FASTING:NO FASTING: NO Ceci Peacock MD LAB BLOOD ORDERABLES Final Result [address], [place] [address] [facility] [address] [place] [phone] * HPV E6/E7 RFLX JESSICA 16 18/45 (11/09/2021 2:40 PM EDT) [facility] HPV mRNA E6/E7 rflx Not Detected Not Detected [facility] Comment: Methodology: Church Organist-Mediated Amplification This assay detects E6/E7 viral messenger RNA (mRNA) from 14 high-risk HPV types (16,18,31,33,35,39,45,51,52,56,58,59,66,68). Cervical sources are required for HPV testing. If a vaginal source from a patient who has had a total hysterectomy with removal of cervix was submitted, please contact the testing laboratory for alternative testing options. For additional information, please refer to http://education.[employer]lu[employer]/faq/DOK992n5 (This link if provided for information/ educational purposes only.) THIS TEST WAS PERFORMED AT: [facility] [address] [place] [address],[address] [place], [place] ??[phone] TIN DICKEY MD 11/09/2021 2:40 PM EDT us Kylee Reedley HISTORICAL/NON ORDERABLE LABS Fi nal Result [facility] [address] [place] [address], from Last 3 Months or Most Recently Relevant to Health Maintenance Insurance [facility] C3 HSN FULL Care Teams Emergency Generator Mechanic Relationship Specialty Start Date End Date Ceci Billings MD [address] [place] [address] PCP - General Family Medicine 06/02/20
--- OUTSIDE RECORDS SUMMARY | 2024-07-12 16:09 | XMS_ITS | Encounter Summary ---
Author Organization [employer] Address [address] [place] [address] 7t [place] [address] Care Team Providers Care Manager Clinic Name Role Phone Ceci Billings MD Primary Care Provide r Encounter Details Date Type Department Care Team (Late st Contact Info) Description 05/27/2022 Telephone [facility] [address] [place] [address] Ceci Billings MD [address] [place] [address] Social History Tobacco Use Types Packs/Day Years [...] 07/24/2024 11:30 AM EDT Telemedicine [facility] [address] [place] [address] Ceci Billings MD [address] [place] [address] documented as of this encounter Visit Diagnoses Not on filedocumented in this encounter Care Teams Manager Clinic Relationship Specialty Start Date End Date Ceci Billings MD [address] [place] [address] PCP - General Family Medicine 06/02/20 documented as of this encounter
--- OUTSIDE RECORDS SUMMARY | 2024-07-12 16:09 | XMS_ITS | Encounter Summary ---
Author Organization [employer] Address [address] [facility] [address] 7t [place] [address] Care Team Providers Care Telecommunications Cable Jointer Name Role Phone Ceci Billings MD Primary Care Provide r Reason for Visit * Reason Comments Med Refill Encounter Details Date Type Department Care Team (Late st Contact Info) Description 01/03/2024 Refill [facility] [address] [place] [address] Ceci Billings MD [address] [place] [address] Social History Tobacco Use Types Packs/Day Years [...] 11:30 AM EDT Telemedicine [facility] [address] [place] [address] Ceci Billings MD [address] [place] [address] documented as of this encounter Visit Diagnoses Not on filedocumented in this encounter Additional Health Concerns Assessment Noted Time PHQ-9 Depression Total Score: 0 10/05/19 24 9:33 AM EDT documented as of this encounter Care Teams Telecommunications Cable Jointer Relationship Specialty Start Date End Date Ceci Billings MD [address] [place] [address] PCP - General Family Medicine 06/02/20 documented as of this encounter
--- OUTSIDE RECORDS SUMMARY | 2024-07-12 16:09 | XMS_ITS | Encounter Summary ---
Author Organization [employer] Address [address] [facility] [address] 7t [place] [address] Care Team Providers Care Pastry Decorator Name Role Phone Ceci Billings MD Primary Care Provide r Encounter Details Date Type Department Care Team (Late st Contact Info) Description 07/03/2024 Orders Only [facility] [address] [place] [address] Provider, MD Chito Social History Tobacco Use [...] Info) Description 07/24/2024 11:30 AM EDT Telemedicine [facility] [address] [place] [address] Ceci Billings MD [address] [place] [address] documented as of this encounter Procedures Procedure Name Priority Date/Time Associated Diagnosis Comments BACTERIAL VAGINOSIS PANEL Routine 07/03/2024 12:00 AM EDT CHLAMYDIA/N. GONORRHOEAE RNA, TMA, UROGENITAL Routine 07/03/2024 12:00 AM EDT HM COLONOSCOPY Routine 08/23/2023 11:53 AM EDT documented in this encounter Results * Bacterial Vaginosis (07/03/2024 12:00 AM EDT) TRICHOMONAS VAGINALIS DETECTION BY PCR NOT DETECTED Not Detect [facility] BACTERIAL VAGINOSIS DETECTION BY PCR NEGATIVE Negative [facility] Comment:The BV organism targ ets [...] DETECTION BY PCR NOT DETECTED Not Detect [facility] Jeni glab krusei PCR NOT DETECTED Not Detect [facility] 07/03/2024 07/03/2024 us Generic External Data Provider LAB MICROBIOLOGY - GENERAL ORDERABLES Final Result [facility] [address] [place] [phone] * Chlamydia/N. Gonorrhoeae RNA, TMA, Urogenitial (07/03/2024 12:00 AM EDT) CT PCR NOT DETECTED Not Detect. [facility] Comment:A not detected test result [...] psychologicalconsequences. NG PCR NOT DETECTED Not Detect. [facility] Comment:A not detected test result [...] medical, social or psychologicalconsequences. 07/03/2024 07/03/2024 Narrative [facility] - 07/04/2024 5:16 AM EDT Vaginal us Generic External Data Provider LAB MICROBIOLOGY - GENERAL ORDERABLES Final Result [facility] [address] [place] [phone] * Hm Colonoscopy (08/23/2023 11:53 AM EDT) us Historical Provider HEALTH MAINTENANCE Final Result documented in this encounter Visit Diagnoses Not on filedocumented in this encounter Additional Health Concerns Assessment Noted Time PHQ-9 Depression Total Score: 0 10/05/19 24 9:33 AM EDT documented as of this encounter Care Teams Pastry Decorator Relationship Specialty Start Date End Date Ceci Billings MD [address] [place] [address] PCP - General Family Medicine 06/02/20 documented as of this encounter
--- OUTSIDE RECORDS SUMMARY | 2024-07-12 16:09 | XMS_ITS | Encounter Summary ---
Author Organization [employer] Address [address] 7t [place] [address] Care Team Providers Care Logistics Intern Name Role Phone Ceci Billings MD Primary Care Provide r Encounter Details Date Type Department Care Team (Late st Contact Info) Description 04/23/2024 Orders Only [facility] [address] [place] [address] Ceci Billings MD [address] [place] [address] Social History Tobacco Use Types Packs/Day Years [...] Info) Description 07/24/2024 11:30 AM EDT Telemedicine [facility] [address] [place] [address] Ceci Billings MD [address] [place] [address] documented as of this encounter Visit Diagnoses Not on filedocumented in this encounter Additional Health Concerns Assessment Noted Time PHQ-9 Depression Total Score: 0 10/05/19 24 9:33 AM EDT documented as of this encounter Care Teams Logistics Intern Relationship Specialty Start Date End Date Ceci Billings MD [address] [place] [phone] PCP - General Family Medicine 06/02/20 documented as of this encounter
--- OUTSIDE RECORDS SUMMARY | 2024-07-12 16:09 | XMS_ITS | Encounter Summary ---
Author Organization [employer] Address [address] [facility] [address] 7t [place] [address] Care Team Providers Care Gericare Aide Teacher Name Role Phone Ceci Billings MD Primary Care Provide r Reason for Visit * Reason Onset Date Comments Medication Question 07/02/2024 Encounter Details Date Type Department Care Team (Late st Contact Info) Description 07/02/2024 Refill [facility] [address] [place] [address] Ceci Billings MD [address] [place] [address] Class 3 severe obesity with serious comorbidity [...] be 5 mg now. Contact pt at [phone] documented in this encounter Plan of Treatment Upcoming Encounters Date Type Department Care Team (Late st Contact Info) Description 07/24/2024 11:30 AM EDT Telemedicine [address] [address] Ceci Billings MD [address] [place] [address] documented as of this encounter Visit Diagnoses Diagnosis Class 3 severe obesity with serious comorbidity and body mass index (BMI) of 45.0 to 49.9 in adult, unspecified obesity type (CMS/HCC) documented in this encounter Additional Health Concerns Assessment Noted Time PHQ-9 Depression Total Score: 0 10/05/19 24 9:33 AM EDT documented as of this encounter Care Teams Gericare Aide Teacher Relationship Specialty Start Date End Date Ceci Billings MD [address] [place] [address] PCP - General Family Medicine 06/02/20 documented as of this encounter
--- OUTSIDE RECORDS SUMMARY | 2024-07-12 16:09 | XMS_ITS | Encounter Summary ---
Author Organization [employer] Address [address] [facility] [address]t [place] [address] Care Team Providers Care Sewing Machine Operator Zipper Name Role Phone Ceci Billings MD Primary Care Provide r Reason for Visit * Reason Comments Med Refill Encounter Details Date Type Department Care Team (Late st Contact Info) Description 11/30/2023 Refill [facility] [address] [place] [address] Ceci Billings MD [address] [place] [address] Muscle spasm Social History Tobacco Use Types [...] Info) Description 07/24/2024 11:30 AM EDT Telemedicine [facility] [address] [place] [address] Ceci Billings MD [address] [place] [address] documented as of this encounter Visit Diagnoses Diagnosis Muscle spasm Spasm of muscle documented in this encounter Additional Health Concerns Assessment Noted Time PHQ-9 Depression Total Score: 0 10/05/19 24 9:33 AM EDT documented as of this encounter Care Teams Sewing Machine Operator Zipper Relationship Specialty Start Date End Date Ceci Billings MD [address] [place] [address] PCP - General Family Medicine 06/02/20 documented as of this encounter
--- OUTSIDE RECORDS SUMMARY | 2024-07-12 16:09 | XMS_ITS | Encounter Summary ---
Author Organization [employer] Address [address] [facility] 7t [place] [address] Care Team Providers Care Screed Person Name Role Phone Ceci Billings MD Primary Care Provide r Reason for Visit * Reason Comments Med Refill Encounter Details Date Type Department Care Team (Late Contact Info) Description 04/30/2022 Refill [facility] [address] [place] [address] Jesús Vale MD [address] [place] [address] Influenza-like illness Social History Tobacco Use Types [...] Description 07/24/2024 11:30 AM EDT Telemedicine [facility] [address] [place] [address] Ceci Billings MD [address] [place] [address] documented as of this encounter Visit Diagnoses Diagnosis Influenza-like illness documented in this encounter Care Teams Screed Person Relationship Specialty Start Date End Date Ceci Billings MD [address] [place] [address] PCP - General Family Medicine 06/02/20 documented as of this encounter
--- OUTSIDE RECORDS SUMMARY | 2024-07-12 16:09 | XMS_ITS ---
Author Organization [facility] Address [address] [place] [address] Care Team Providers Care Rn Residential Name Role Phone Summer Dwyer NP Primary Care Provider Unavailab Emerson Kothari [phone] Encounters Encounter Location Date Provider Diagnosis [facility] [address] [place] [address] 06/05/2024 Emerson Canales Plan Of Treatment Next Appt Details Provider Name:Emerson Canales , 01/09/2025 01:20:00 PM, [address], [address], [place], [address], Progress Notes * STEPHIE DORSEYDOB: [birth year] (48 yo F)Acc No.[id number]:06/05/2024 Patient:?STEPHIE DORSEY :1975???Age:48 Y???Sex:Female Address:[address] [place] [address] * true * Date:? Generated for Printi egma/Enmanuel/eTransmitting on:?07/12/2024 04:09 PM EDT
--- OUTSIDE RECORDS SUMMARY | 2024-07-12 16:10 | XMS_ITS | Encounter Summary ---
Author Organization [employer] Address [address] [facility] [address] 7t [place] [address] Care Team Providers Care Practice Support Specialist Name Role Phone Ceci Billings MD Primary Care Provide r Reason for Visit * Reason Comments Med Refill Encounter Details Date Type Department Care Team (Late st Contact Info) Description 06/11/2024 Refill [facility] [address] [place] [address] Ceci Billings MD [address] [place] [address] Crohn's disease of both small and large [...] Info) Description 07/24/2024 11:30 AM EDT Telemedicine [facility] [address] [place] [address] Ceci Billings MD [address] [place] [address] documented as of this encounter Visit Diagnoses Diagnosis Crohn's disease of both small and large intestine without complication (CMS/HCC) documented in this encounter Additional Health Concerns Assessment Noted Time PHQ-9 Depression Total Score: 0 10/05/19 24 9:33 AM EDT documented as of this encounter Care Teams Practice Support Specialist Relationship Specialty Start Date End Date Ceci Billings MD [address] [place] [address] PCP - General Family Medicine 06/02/20 documented as of this encounter
== END 2024-07-12 13:36 | disposition home or self-care (01) ==
LOC: HO.MAMMO 13:35
PROVIDERS: PCP Internal Medicine; Visit Provider Internal Medicine
DX: Z12.31 Encounter for screening mammogram for malignant neoplasm of breast (principal)
CPT/HCPCS: 77063; 77067

== ENCOUNTER → 2024-07-12 13:45 | Outpatient (BNV) | payer MEDICAID, SELFPAY | PROVIDERS: PCP Internal Medicine; Visit Provider Internal Medicine | DX: Z12.31 Encounter for screening mammogram for malignant neoplasm of breast (principal) | CPT/HCPCS: 77063; 77067 ==

== ENCOUNTER 2024-08-07 14:13 | Outpatient (REF) | payer MEDICAID, SELFPAY ==
--- NOTE | ~2024-08-07 | XR_ITS ---
EXAMINATION: XR SHOULDER, RIGHT CLINICAL INFORMATION: 2 months of rigth shoulder pain and no history of trauma COMPARISON: None available. TECHNIQUE: AP external rotation, Grashey, scapular Y, and axillary views of the right shoulder. FINDINGS: No acute cortical disruption or malalignment. No lytic or blastic lesions. The acromioclavicular joint measures 5 mm. XR/XR shoulder RT min 2V IMPRESSION: No acute fracture or dislocation. No gross degenerative changes. Electronically signed by: Bill Gavin MD 08/07/2024 02:35 PM EDT
--- OUTSIDE RECORDS SUMMARY | 2024-08-07 17:29 | XMS_ITS | Encounter Summary ---
Author Organization [employer] Address [address] 7t [place] [address] Care Team Providers Care Watch And Clock Repair Clerk Name Role Phone Ceci Billings MD Primary Care Provide r Encounter Details Date Type Department Care Team (Late st Contact Info) Description 07/27/2023 Orders Only [facility] [address] [place] [address] Ceci Billings MD [address] [place] [address] Class 3 severe obesity with serious comorbidity [...] Care Team (Late st Contact Info) Description 09/07/2024 9:00 AM EDT Office Visit [facility] [address] [place] [address] Ceci Billings MD [address] [place] [address] documented as of this encounter Visit Diagnoses Diagnosis Class 3 severe obesity with serious comorbidity and body mass index (BMI) of 45.0 to 49.9 in adult, unspecified obesity type- Primary documented in this encounter Additional Health Concerns Assessment Noted Time PHQ-9 Depression Total Score: 5 07/07/19 24 10:12 AM EDT documented as of this encounter Care Teams Watch And Clock Repair Clerk Relationship Specialty Start Date End Date Ceci Billings MD [address] [place] [address] PCP - General Family Medicine 06/02/20 documented as of this encounter
--- OUTSIDE RECORDS SUMMARY | 2024-08-07 17:29 | XMS_ITS | Encounter Summary ---
Author Organization [employer] Address [address] [place] [address] 7t [place] [address] Care Team Providers Care Price Lister Name Role Phone Ceci Billings MD Primary Care Provide r Encounter Details Date Type Department Care Team (Late st Contact Info) Description 05/27/2022 Telephone [facility] [address] [place] [address] Ceci Billings MD [address] [place] [address] Social History Tobacco Use Types Packs/Day Years [...] Description 09/07/2024 9:00 AM EDT Office Visit [facility] [address] [place] [address] Ceci Billings MD [address] [place] [address] documented as of this encounter Visit Diagnoses Not on filedocumented in this encounter Care Teams Price Lister Relationship Specialty Start Date End Date Ceci Billings MD [address] [place] [address] PCP - General Family Medicine 06/02/20 documented as of this encounter
--- OUTSIDE RECORDS SUMMARY | 2024-08-07 17:29 | XMS_ITS ---
Author Organization [facility] Address [address] [place] [address] Care Team Providers Care Pump Mechanic Name Role Phone Reymundo WEEMS, Summer Primary Care Provider Unavailab Emerson Kothari [phone] REASON FOR VISIT waiting on ins for every 4 weeks stelara/ denied Encounters Encounter Location Date Provider Diagnosis [facility] [address] [place] [address] 06/14/2024 Emerson Canales Plan Of Treatment Next Appt Details Provider Name:Emerson Canales , 01/09/2025 01:20:00 PM, [address], [address], [place], [address], Progress Notes * STEPHIE LLOYDDOB: 7 (48 yo F)Acc No.[id number]:06/14/2024 Patient:?STEPHIE LLOYD :1975???Age:48 Y???Sex:Female Address:[address] [place] [address] * true * Date:? Generated for Randolphi gema/Enmanuel/eTransmitting on:?08/07/2024 05:29 PM EDT
--- OUTSIDE RECORDS SUMMARY | 2024-08-07 17:29 | XMS_ITS | Encounter Summary ---
Author Organization [employer] Address [address] 7t [place] [address] Care Team Providers Care Software Technician Name Role Phone Ceci Billings MD Primary Care Provide r Encounter Details Date Type Department Care Team (Late st Contact Info) Description 04/23/2024 Orders Only [facility] [address] [place] [address] Ceci Billings MD [address] [place] [address] Social History Tobacco Use Types Packs/Day Years [...] Description 09/07/2024 9:00 AM EDT Office Visit [facility] [address] [place] [address] Ceci Billings MD [address] [place] [address] documented as of this encounter Visit Diagnoses Not on filedocumented in this encounter Additional Health Concerns Assessment Noted Time PHQ-9 Depression Total Score: 0 10/05/19 24 9:33 AM EDT documented as of this encounter Care Teams Software Technician Relationship Specialty Start Date End Date Ceci Billings MD [address] [place] [address] PCP - General Family Medicine 06/02/20 documented as of this encounter
--- OUTSIDE RECORDS SUMMARY | 2024-08-07 17:29 | XMS_ITS | Patient Health Record ---
Author Organization [facility] Address [address] [place] [address] Care Team Providers Care Store Sales Leader Name Role Phone Reymundo WEEMS, Summer Primary Care Provider Emerson Sauceda [phone] Allergies Allergen (clinical drug ingredient) Drug/Non Drug Allergy documented on EMR Reaction Allergy Type Onset Date Status vancomycin Vancomycin HCl Unknown Drug Allergy A ctive ciprofloxacin cipro (uncoded) Unknown Allergy Active Results Component Value Reference Range Notes Ur Preg Test Reviewed date:08/23/2023 09:35:47 AM Interpretation: Performing Lab:[facility], [address] [place] [address] Notes/Report: Urine NEGATIVE NEGATIVE This test was developed to detect early . False negative results may occur after the 5th - 7th week of when using this test method. If clinically indicated, consider a serum hCG. Pathology Reviewed date:02/03/2024 10:57:13 AM Interpretation: Performing Lab:[facility], [address] [place] [phone] Notes/Report: -- ---- Name: Stephie Mcfarlane Age/Sex: 47/F : 1975 Unit#: [id number] Attend Dr: Emerson Canales Re08/23/23 Status : [facility] Location: [facility] Disch: -- ---- SPEC : [id number] RECD : 08/23/23-932 STATUS: TATO MARLOW NUM: [id number] BERNARDO: 08/23/23-[address] [facility] [address]: Emerson Canales ENTERED: 08/23/23- 48 [...] Stephie Mcfarlane Age/Sex: 47/F : 1975 Unit#: [id number] Attend Dr: Emerson Canales Re08/23/23 Status : [facility] Location: [facility] Disch: -- ---- SPEC : [id number] RECD : 08/23/23 STATUS: TATO MARLOW NUM: [id number] BERNARDO: 08/23/[address] [facility] [address]: Emerson Canales ENTERED: 08/23/23- 48 [...] Stephie Mcfarlane Age/Sex: 47/F : 1975 Unit#: [id number] Attend Dr: Emerson Canales Re08/23/23 Status : [facility] Location: [place] Disch: -- ---- SPEC : [id number] RECD : 08/23/23 STATUS: TATO MARLOW NUM: [id number] BERNARDO: 08/23/[address] [facility] [address]: Emerson Canales ENTERED: 08/23/23- SP TYPE: Surgical OTHR DR: Ceci Billings MD ORDERED: HE Stain/ , Gross Micro L4/7, IHC, Special st. 2/2, H. pylori, AB/PAS/2 Copies To: Yi Billings MD [address] [place] [address] Emerson Canales [address] [place] [address] [address] [place] [address] -- ---- Signed (signature on file) Carin [place] 08/24/23 1720 -- ---- END OF REPORT Pathology Reviewed date:02/03/2024 10:57:37 AM Interpretation: Performing Lab:[facility], [address], [place] [address] Notes/Report: -- ---- Name: Stephie Mcfarlane Age/Sex: 47/F : 1975 Unit#: [id number] Attend Dr: Emerson Canales Re08/23/23 Status : [facility] Location: [facility] Disch: -- ---- SPEC : [id number] RECD : 08/23/23 STATUS: TATO MARLOW NUM: [id number] BERNARDO: 08/23/[address] [facility] [address]: Emerson Canales ENTERED: 08/23/23 48 [...] Stephie Mcfarlane Age/Sex: 47/F : 1975 Unit#: [id number] Attend Dr: Emerson Canales Re08/23/23 Status : [facility] Location: [facility] Disch: -- ---- SPEC : [id number] RECD : 08/23/23 STATUS: TATO MRALOW NUM: [id number] BERNARDO: 08/23/[address] [facility] [address]: Emerson Canales ENTERED: 08/23/23 48 [...] Stephie Mcfarlane Age/Sex: 47/F : 1975 Unit#: [id number] Attend Dr: Emerson Canales Re08/23/23 Status : [facility] Location: [facility] Disch: -- ---- SPEC : [id number] RECD : 08/23/23 STATUS: TATO MARLOW NUM: [id number] BERNARDO: 08/23/[address] [facility] [address]: Emerson Canales ENTERED: 08/23/23- 48 [...] B1. Copies To: Yi Billings MD [address] [place] [address] [place] [address] -- ---- Signed (signature on file) Carin Coats 08/24/23 1720 (signature on file) Brendon Rodriguez MD 08/29/23 1313 -- ---- END OF REPORT Complete Blood Count Auto Di ff Reviewed date:04/09/2024 10:38:42 PM Interpretation: Performing Lab:[facility], [address] [place] [address], [place] [address] Notes/Report: White Blood Count 5.2 4.8-10.8 X10*3/uL [...] Panel Reviewed date:04/04/2024 01:40:57 PM Interpretation: Performing Lab:[address] [address] Notes/Report: Bilirubin Total 0.2 0.0-1.0 mg/dL Bilirubin Direct < 0.2 0.0-0.5 mg/dL Aspartate Amino Transferase 22 5-31 U/L Alanine Aminotransferase 34 0-31 U/L Total Protein 7.2 6.5-8.0 g/dL Albumin Level 3.7 3.5-5.0 g/dL Alkaline Phosphatase 71 39-117 U/L Dakota KEMPT Reviewed date:06/05/2024 05:15:56 PM Interpretation: Performing Lab:[address] [address] Notes/Report: Dakota KEMPT SEE NOTE SEE SCA NNED RESULTS IN EMR Reason For Referral No Information Medications Medication SIG (Take, Route, Frequency, Duration) [...] TIMES DAILY WITH MEALS for 30 Active Zicxxywpjo-HJIH-Elqguc ne 50-325-40 MG TAKE 1 TO 2 [...] use a ny significant amounts of alcohol. Problems Problem Type SNOMED Code ICD Code Onset Dates Problem Status W/U Status Risk Notes Problem Colon cancer screening (151516235) Colon cancer screening (Z12.11) Active confirmed Problem Irritable bowel syndrome (40395070) Irritable bowel syndrome (K58.9) Active confirmed Problem 20475281 Crohn's disease of both small and large intestine without complication (K50.80) Active confirmed Problem 559453727 Nausea (R11.0) Active confirmed Problem 098457545 Encounter for therapeutic drug level monitoring (Z51.81) Active confirmed Problem Dysphagia (27285039) Dysphagia (R13.10) Active confirmed Problem 61516488 Crohns disease o f both small and large intestine without complication (K50.80) Active confirmed Problem 333798435 Gastroesophageal reflux disease, esophagitis presence not specified (K21.9) Active confirmed Problem Chronic gastritis (6590905) Chronic gastritis (K29.50) Active confirmed Problem 57943606 Diarrhea, unspecified type (R19.7) Active confirmed Problem 86560755 Crohn''s disease of both small and large intestine without complication (K50.80) Active confirmed Problem 26757792 Erythematous ski n nodule (R22.9) Active confirmed Problem 30004591 Vaginal candidiasis (B37.3) Active confirmed Problem Drug monitoring done (722703105) Encounter for therapeutic drug monitoring (Z51.81) Active confirmed Problem Gastroesophageal reflux disease (disorder) (966647707) Chronic GERD (K21.9) Active confirmed Vital Signs Blood pressure diastolic 11 mm Hg 06/05/2024 Height 65.5 in 06/05/2024 Blood pressure systolic 111 mm Hg 06/05/2024 Weight 267 lbs 06/05/2024 BMI 43.75 kg/m2 06/05/2024 Encounters Encounter Location Date Provider Diagnosis [facility] [address] [place] [id number] 08/23/2023 Emerson Canales Crohn's disease of both small and large intestine without complication K50.80 ; Other hemorrhoids K64.8 ; Chronic gastritis K29.50 ; Hiatal hernia K44.9 ; Chronic GERD K21.9 and Dysphagia R13.10 [facility] [address] [place] [address] 06/05/2024 Emerson Canales Crohn's disease of both small and large intestine without complication K50.80 ; Irritable bowel syndrome K58.9 ; Chronic GERD K21.9 and Vaginal candidiasis B37.3 [facility] [address] [place] [address] 08/29/2023 Emerson Canales [facility] [address] [place] [address] 12/23/2023 [facility] [address] [place] [address] 02/03/2024 Emerson Canales [facility] [address] [place] [address] 02/03/2024 Emerson Canales Crohn''s disease of both small and large intestine without complication K50.80 and Encounter for therapeutic drug monitoring Z51.81 [facility] [address] [place], [place] [address] 05/01/2024 Emerson Canales [facility] [address] [place] [address] 06/05/2024 Emerson Canales [facility] [address] [place] [address] 06/14/2024 Emerson Canales [facility] [address] [place] [address] 06/22/2024 Emerson Canales Assessments Encounter Date Diagnosis [...] PROFILE 07/11/2017 LIVER PROFILE 07/10/2020 LIVER PROFILE 07/15/2016 LIVER PROFILE 07/12/2016 IRON + IBC (FE) 08/13/2021 CRP 01/08/2021 CRP 01/24/2018 CRP 08/13/2021 VITAMIN B12 AND FOLATE 08/13/2021 CBC w DIFF 01/24/2018 CBC w DIFF 07/11/2017 CBC w DIFF 07/10/2020 CBC w DIFF 07/15/2016 CBC w DIFF 07/12/2016 CBC w DIFF 04/01/2015 CBC w DIFF 08/13/2021 CBC w DIFF 10/17/2018 CBC w DIFF 02/03/2024 CBC w DIFF 07/08/2013 CBC w DIFF 12/11/2017 CBC w DIFF 05/09/2014 CBC w DIFF 11/03/2015 CBC w DIFF 01/08/2021 CBC w/o DIFF 05/23/2019 SED RATE (ESR) 01/24/2018 SED RATE (ESR) 08/13/2021 SED RATE (ESR) 01/08/2021 OTHER REF LAB TEST - MISC 07/15/2016 [...] 01:20:00 PM, [address], [address], [place], [address], Insurance Providers Payer Name Payer Address Payer Phone Subscriber Number Group Number Insured Name Patient Relationship to Insured Coverage Start Date Coverage End Date MEDICAID OF [employer] [address] [place] [phone] [id number] STEPHIE LLOYD Self - patient is the insured Medical (General) History Medical History History ICD Code Colonoscopy 07-07-2012 Crohn's colitis-diagnosed in 2000- colonoscopy in 02/2009 at [facility] with diffuse colitis/ileitis-has been treated with Remicade, Humira, and azathioprine in the past at [facility]--Stephie reports that the mesalamines and azathioprine seem to exacerbate her GI symptoms with gas and cramps--however, at those time she is usually having active Crohn's disease symptoms as well---she was hospitalized at [facility] in 06/2013 for a flareup of the [...] 01/2019 for the Crohn's and psoriasis Denies SD,DM,CVA,Lung disease,renal dise ase Anemia--sees Dr. Pulido/Dr. Griffiths--rece [...]
--- OUTSIDE RECORDS SUMMARY | 2024-08-07 17:29 | XMS_ITS | Encounter Summary ---
Author Organization [employer] Address [address] [place] [address] 7t [place] [address] Care Team Providers Care Organizational Consultant Name Role Phone Ceci Billings MD Primary Care Provide r Reason for Visit * Reason Comments Med Refill Encounter Details Date Type Department Care Team (Late st Contact Info) Description 12/02/2022 Refill [facility] [address] [place] [address] Yaniv Pelaez MD [address] [place] [address] Insomnia, unspecified type Social History Tobacco Use [...] Department Care Team (Late Contact Info) Description 09/07/2024 9:00 AM EDT Office Visit [facility] [address] [place] [address] Ceci Billings MD [address] [place] [address] documented as of this encounter Visit Diagnoses Diagnosis Insomnia, unspecified type documented in this encounter Additional Health Concerns Assessment Noted Time PHQ-9 Depression Total Score: 0 08/07/19 23 9:07 AM EDT documented as of this encounter Care Teams Organizational Consultant Relationship Specialty Start Date End Date Ceci Billings MD 230 [place] [address] PCP - General Family Medicine 06/02/20 documented as of this encounter
--- OUTSIDE RECORDS SUMMARY | 2024-08-07 17:29 | XMS_ITS | Clinical Summary ---
Author Organization [facility] Address [address] [place] [address] Phone Care Team Providers Care Linux Engineer Name Role Phone Katrina Sherwood MD Primary Care Provider [phone] Allergies Active Allergy Reactions Criticality Noted Date [...] 8:30 AM EDT Office Visit Orthopedic Surgery [address] [address] Juan Moody DPM Lumbosacral radiculopathy (Primary Dx); Posterior tibial tendinitis of right leg; Equinus contracture of right ankle; Plantar fasciitis 05/10/2024 9:00 AM EST Office Visit Orthopedic Surgery [facility] [address] [address] Juan Moody DPM Lumbosacral radiculopathy (Primary Dx); [...] AM EDT Office Visit [facility] - [place] [address] [facility] [address] [place] [phone] Juan Moody, DPAng 175 [facility] [address] [place] [address] Health Maintenance Due Date Last Done Comments Breast Cancer Screening 1975 Colorectal Cancer Screening: Colonoscopy 03/23/2022 HIV Screening 03/23/2022 Hepatitis C Screening 03/23/2022 Social Influencers of Health Screening 03/23/2022 COVID-19 Vaccine ( season) 2023 08/19/2020, 07/11/2020 Depression Screening 10/04/2024 10/05/2023 Influenza Vaccine (Season Ended) 2024 02/15/2023, 05/07/2021, 12/24/2020, Additional history exists Cervical Cancer Screening: HPV 11/09/2026 11/09/2021 Cholesterol [...] age to complete this topic Meningococcal B Vaccine Aged Out No l onger eligible based on patient's age to complete [...] Final Result * Lipid panel (08/06/2022) Pathologist [facility] LDL/HDL Ratio 0 Comment:no interpretation, a bstracted Triglycerides 0 mg/dL Comment:no interpretation, a bstracted Cholesterol 0 mg/dL Comment:no interpretation, a bstracted HDL 0 mg/dL Comment:no interpretation, a bstracted LDL Cholesterol 0 mg/dL Comment:no interpretation, a bstracted Blood Venous blood specimen / Unknown Historical Provider LAB BLOOD ORDERABLES Marcelina l Result * Cervical Cancer Screening: HPV (11/09/2021) Pathologist [facility] Cervical Cancer Screening: HPV abstracted Historical Provider HEALTH MAINTENANCE Final Result from Last 3 Months or Most Recently Relevant to Health Maintenance Insurance MEDICAID - [place] Care Teams Linux Engineer Relationship Specialty Start Date End Date [place], [place] Katrina [address] [phone] PCP - General Internal Medicine 01/02/14
--- OUTSIDE RECORDS SUMMARY | 2024-08-07 17:29 | XMS_ITS | Encounter Summary ---
Author Organization [employer] Address [address] [place] [address] Care Team Providers Care Senior Sql Developer Name Role Phone Ceci Billings MD Primary Care Provide r Encounter Details Date Type Department Care Team (Late st Contact Info) Description 07/03/2024 Orders Only [facility] [address] [place] [address] Provider, MD Chito Social History Tobacco Use [...] Description 09/07/2024 9:00 AM EDT Office Visit [facility] MEDICINE [address] [place] [address] Ceci Billings MD [address] [place] [address] documented as of this encounter Procedures Procedure Name Priority Date/Time Associated Diagnosis Comments BI MAMMOGRAM SCREENING TOMOSYNTHESIS BILATERAL Routine 07/12/2024 1:45 PM EDT BACTERIAL VAGINOSIS PANEL Routine 07/03/2024 12:00 AM EDT CHLAMYDIA/N. GONORRHOEAE RNA, TMA, UROGENITAL Routine 07/03/2024 12:00 AM EDT HM COLONOSCOPY Routine 08/23/2023 11:53 AM EDT documented in this encounter Results * BI Mammogram Screening Tomosynthesis Bilateral (07/12/2024 1:45 PM EDT) Anatomical Region Laterality Modality Breast Bilateral Mammography 07/12/2024 1:45 PM EDT Narrative 07/20/2024 4:18 PM EDT ? [facility] ? [address] ?[place] [address] ?[phone] ? Mammography Report ? Signed ? Patient: Windy Mcfarlane ?MR# ?? : [id number] ? : 1975 ?Acct:[id number] ? Age/Sex: 48 / F ?ADM Date: 07/12/24 ? Loc: HO.MAMMO ? Attending Dr: Ceci Peacock MD ? Ordering Physician: Ceci Billings MD ?Results: ?? 2Benign Findings ? Date of Service: 07/12/24 ?Follow Up: 1 Year From Orig ?? inal Mammogram ? Procedure(s): MM tomosynthesis screening BI ?? Accession Number(s): [id number] ? cc: Ceci Billings MD ? EXAMINATION: ?? MM SCREENING DIGITAL BREAST TOMOSYNTHESIS, BILATERAL ? CLINICAL INFORMATION: ? Screening. Asymptomatic. ? COMPARISON: ?? Mammography: Comparison is made with available priors ? TECHNIQUE: ?? Digital breast mammography with tomosynthesis is performed in both the ?? craniocaudal and mediolateral oblique views along with computer-aided ?? detection (CAD). ? FINDINGS: ?? There are scattered areas of fibroglandular density (ACR BI-RADS breast ?? composition Category b). ?? Bilateral reduction mammoplasty changes. ?? There are no significant masses, abnormal calcifications, or other ?? abnormalities. ? MM/MM tomosynthesis screening BI ?? IMPRESSION: ?? No mammographic evidence of malignancy. ? ASSESSMENT: ? BI-RADS BI-RADS 2 - Benign Findings ? RECOMMENDATION: ?? Routine annual mammography screening. ? 1 year F/U ? This examination should not preclude the clinical evaluation of a ?? suspicious palpable abnormality. ? This patient's information was entered into a reminder system with a ?? target due date for their next mammogram. ? Electronically signed by: ??Zulema Bruno DO ??07/20/2024 04:14 PM EDT ? Dictated By: ?Zulema Bruno DO ? Signed By: ?<Electronically signed by Zulema Bruno, DO in OV> ? 07/20/24 1614 ? DD/ 1345 ? TD/TT: 07/12/24 1401 ? Assistant Merchandiser: ? Procedure Note Donotleeinterpreter, Image - 07/20/2024 [facility] [address] [place] [address] Mammography Report Signed Patient: Windy McfarlaneMR# : [id number] : 1975Acct:[id number] Age/Sex: 48 / FADM Date: 07/12/24 Loc: HO.MAMMO Attending Dr: Ceci Peacock MD Ordering Physician: Ceci Billings MDResults: 2Benign Findings Date of Service: 07/12/24Follow Up: 1 Year From Orig inal Mammogram Procedure(s): MM tomosynthesis screening BI Accession Number(s): [id number] cc: Ceci Billings MD EXAMINATION: MM SCREENING DIGITAL BREAST TOMOSYNTHESIS, BILATERAL CLINICAL INFORMATION: Screening. Asymptomatic. COMPARISON: Mammography: Comparison is made with available priors TECHNIQUE: Digital breast mammography with tomosynthesis is performed in both the craniocaudal and mediolateral oblique views along with computer-aided detection (CAD). FINDINGS: There are scattered areas of fibroglandular density (ACR BI-RADS breast composition Category b). Bilateral reduction mammoplasty changes. There are no significant masses, abnormal calcifications, or other abnormalities. MM/MM tomosynthesis screening BI IMPRESSION: No mammographic evidence of malignancy. ASSESSMENT: BI-RADS BI-RADS 2 - Benign Findings RECOMMENDATION: Routine annual mammography screening. 1 year F/U This examination should not preclude the clinical evaluation of a suspicious palpable abnormality. This patient's information was entered into a reminder system with a target due date for their next mammogram. Electronically signed by: Zulema Bruno DO 07/20/2024 04:14 PM EDT RP Dictated By: Zulema Bruno DO Signed By: <Electronically signed by Zulema Bruno DO in OV> 07/20/24 1614 DD/ 1345 TD/TT: 07/12/24 1401 Assistant Merchandiser: us Ceci Peacock MD IMG BI PROCEDURES Fin al Result * Bacterial Vaginosis (07/03/2024 12:00 AM EDT) TRICHOMONAS VAGINALIS DETECTION BY PCR NOT DETECTED Not Detect [facility] BACTERIAL VAGINOSIS DETECTION BY PCR NEGATIVE Negative [facility] Comment:The BV organism targ ets [...] DETECTION BY PCR NOT DETECTED Not Detect [facility] Jeni glab krusei PCR NOT DETECTED Not Detect [facility] 07/03/2024 07/03/2024 us Generic External Data Provider LAB MICROBIOLOGY - GENERAL ORDERABLES Final Result [facility] [address] [place] [address] [phone] * Chlamydia/N. Gonorrhoeae RNA, TMA, Urogenitial (07/03/2024 12:00 AM EDT) CT PCR NOT DETECTED Not Detect. [facility] Comment:A not detected test result [...] psychologicalconsequences. NG PCR NOT DETECTED Not Detect. [facility] Comment:A not detected test result [...] medical, social or psychologicalconsequences. 07/03/2024 07/03/2024 Narrative [facility] - 07/04/2024 5:16 AM EDT Vaginal us Generic External Data Provider LAB MICROBIOLOGY - GENERAL ORDERABLES Final Result [facility] [address] [place] [address] [phone] * Hm Colonoscopy (08/23/2023 11:53 AM EDT) us Historical Provider HEALTH MAINTENANCE Final Result documented in this encounter Visit Diagnoses Not on filedocumented in this encounter Additional Health Concerns Assessment Noted Time PHQ-9 Depression Total Score: 0 10/05/19 24 9:33 AM EDT documented as of this encounter Care Teams Senior Sql Developer Relationship Specialty Start Date End Date Ceci Billings MD [address] [place] [address] PCP - General Family Medicine 06/02/20 documented as of this encounter
--- OUTSIDE RECORDS SUMMARY | 2024-08-07 17:29 | XMS_ITS | Encounter Summary ---
Author Organization [employer] Address [address] [place] [address] Care Team Providers Care Hearse Driver Name Role Phone Ceci Billings MD Primary Care Provide r Reason for Visit * Reason Comments Med Refill Encounter Details Date Type Department Care Team (Late st Contact Info) Description 01/03/2024 Refill [facility] [address] [place] [address] Ceci Billings MD [address] [place] [address] Social History Tobacco Use Types Packs/Day Years [...] Description 09/07/2024 9:00 AM EDT Office Visit [facility] [address] [place] [address] Ceci Billings MD [address] [place] [address] documented as of this encounter Visit Diagnoses Not on filedocumented in this encounter Additional Health Concerns Assessment Noted Time PHQ-9 Depression Total Score: 0 10/05/19 24 9:33 AM EDT documented as of this encounter Care Teams Hearse Driver Relationship Specialty Start Date End Date Ceci Billings MD [address] [place] [address] PCP - General Family Medicine 06/02/20 documented as of this encounter
--- OUTSIDE RECORDS SUMMARY | 2024-08-07 17:29 | XMS_ITS | Encounter Summary ---
Author Organization [employer] Address [address] 7[address] [place] [address] Care Team Providers Care Floor Installer Name Role Phone Ceci Billings MD Primary Care Provide r Reason for Visit * Reason Onset Date Comments Medication Question 03/12/2024 Encounter Details Date Type Department Care Team ([facility] Contact Info) Description 03/12/2024 Telephone [facility] [address] [place] [address] Ceci Billings MD [address] [place] [address] Medication Question Social History Tobacco Use Types [...] questions on med PA . Callback number [phone] documented in this encounter Plan of Treatment Upcoming Encounters Date Type Department Care Team (Late st Contact Info) Description 09/07/2024 9:00 AM EDT Office Visit [facility] [address] [place], [place] [phone] Ceci Billings MD [address] [place] [address] documented as of this encounter Visit Diagnoses Not on filedocumented in this encounter Additional Health Concerns Assessment Noted Time PHQ-9 Depression Total Score: 0 10/05/19 24 9:33 AM EDT documented as of this encounter Care Teams Floor Installer Relationship Specialty Start Date End Date Ceci Billings MD [address] [place] [address] PCP - General Family Medicine 06/02/20 documented as of this encounter
--- OUTSIDE RECORDS SUMMARY | 2024-08-07 17:29 | XMS_ITS | Encounter Summary ---
Author Organization [employer] Address [address] [facility] 7t [place] [address] Care Team Providers Care Pallet Rectifier Name Role Phone Ceci Billings MD Primary Care Provide r Reason for Visit * Reason Comments Med Refill Encounter Details Date Type Department Care Team (Late st Contact Info) Description 06/22/2024 Refill [facility] [address] [place] [address] Ceci Billings MD [address] [place] [address] Migraine without aura, not refractory Social History [...] Visit [facility] [address] [place] [address] Ceci Billings MD [address] [place] [address] documented as of this encounter Visit Diagnoses Diagnosis Migraine without aura, not refractory documented in this encounter Additional Health Concerns Assessment Noted Time PHQ-9 Depression Total Score: 0 10/05/19 24 9:33 AM EDT documented as of this encounter Care Teams Pallet Rectifier Relationship Specialty Start Date End Date Ceci Billings MD [address] [place] [address] PCP - General Family Medicine 06/02/20 documented as of this encounter
--- OUTSIDE RECORDS SUMMARY | 2024-08-07 17:29 | XMS_ITS ---
Author Organization [facility] Address [address] [place] [address] Care Team Providers Care Floor Coverings Salesperson Name Role Phone Reymundo WEEMS, Summer Primary Care Provider Unavailab Emerson Kothari [phone] REASON FOR VISIT Stelara Q 4 weeks Rx Encounters Encounter Location Date Provider Diagnosis [facility] [address] [place] [address] 06/22/2024 Emerson Canales Plan Of Treatment Next Appt Details Provider Name:Emerson Canales , 01/09/2025 01:20:00 PM, [address] [facility], [address], [place], [address], Progress Notes * STEPHIE LLOYDDOB: 7 (48 yo F)Acc No.[id number]:06/22/2024 Patient:?STEPHIE LLOYD :1975???Age:48 Y???Sex:Female Address:[address] [place] [address] * true * Date:? Generated for [employer] gema/Enmanuel/eTransmitting on:?08/07/2024 01:22 PM EDT
--- OUTSIDE RECORDS SUMMARY | 2024-08-07 17:29 | XMS_ITS | Encounter Summary ---
Author Organization [employer] Address [address] 7t [place] [address] Care Team Providers Care Oceanography Teacher Name Role Phone Ceci Billings MD Primary Care Provide r Reason for Visit * Reason Comments Med Refill Encounter Details Date Type Department Care Team (Late st Contact Info) Description 07/18/2024 Refill [facility] [address] [place] [address] Ceci Billings MD [address] [place] [address] Social History Tobacco Use Types Packs/Day Years [...] Description 09/07/2024 9:00 AM EDT Office Visit [facility] [address] [place] [address] Ceci Billings MD [address] [place] [address] documented as of this encounter Visit Diagnoses Not on filedocumented in this encounter Additional Health Concerns Assessment Noted Time PHQ-9 Depression Total Score: 0 10/05/19 24 9:33 AM EDT documented as of this encounter Care Teams Oceanography Teacher Relationship Specialty Start Date End Date Ceci Billings MD [address] [place] [address] PCP - General Family Medicine 06/02/20 documented as of this encounter
--- OUTSIDE RECORDS SUMMARY | 2024-08-07 17:29 | XMS_ITS | Encounter Summary ---
Author Organization [employer] Address [address] 7[address] [place] [address] Care Team Providers Care Reaming Machine Tender Name Role Phone Ceci Billings MD Primary Care Provide r Reason for Visit * Reason Comments Med Refill Encounter Details Date Type Department Care Team (Late st Contact Info) Description 11/30/2023 Refill [facility] [address] [place] [address] Ceci Billings MD [address] [place] [address] Muscle spasm Social History Tobacco Use Types [...] Description 09/07/2024 9:00 AM EDT Office Visit [facility] MED[facility]INE [address] [place] [address] Ceci Billings MD [address] [place] [address] documented as of this encounter Visit Diagnoses Diagnosis Muscle spasm Spasm of muscle documented in this encounter Additional Health Concerns Assessment Noted Time PHQ-9 Depression Total Score: 0 10/05/19 24 9:33 AM EDT documented as of this encounter Care Teams Reaming Machine Tender Relationship Specialty Start Date End Date Ceci Billings MD [address] [place] [address] PCP - General Family Medicine 06/02/20 documented as of this encounter
--- OUTSIDE RECORDS SUMMARY | 2024-08-07 17:29 | XMS_ITS | Encounter Summary ---
Author Organization [employer] Address [address] [facility] 7t [place] [address] Care Team Providers Care Sleep Lab Technician Name Role Phone Ceci Billings MD Primary Care Provide r Reason for Visit * Reason Comments Med Refill Encounter Details Date Type Department Care Team ([facility] Contact Info) Description 04/30/2022 Refill [facility] [address] [place] [address] Jesús Vale MD [address] [place] [address] Influenza-like illness Social History Tobacco Use Types [...] Description 09/07/2024 9:00 AM EDT Office Visit [facility] [address] [place] [address] Ceci Billings MD [address] [place] [address] documented as of this encounter Visit Diagnoses Diagnosis Influenza-like illness documented in this encounter Care Teams Sleep Lab Technician Relationship Specialty Start Date End Date Ceci Billings MD [address] [place], [place] [phone] PCP - General Family Medicine 06/02/20 documented as of this encounter
--- OUTSIDE RECORDS SUMMARY | 2024-08-07 17:29 | XMS_ITS ---
Author Organization [facility] Address [address] [place] [address] Care Team Providers Care Engineering Technologist Name Role Phone Summer Dwyer NP Primary Care Provider Unavailab Emerson Kothari [phone] Encounters Encounter Location Date Provider Diagnosis [facility] [address] [place] [address] 06/05/2024 Emerson Canales Plan Of Treatment Next Appt Details Provider Name:Emerson Canales , 01/09/2025 01:20:00 PM, [address], [address], [place], [address], Progress Notes * STEPHIE DORSEYDOB: 7 (48 yo F)Acc No.[id number]:06/05/2024 Patient:?STEPHIE DORSEY :1975???Age:48 Y???Sex:Female Address:[address] [place] [address] * true * Date:? Generated for [employer] gema/Enmanuel/eTransmitting on:?08/07/2024 01:22 PM EDT
--- OUTSIDE RECORDS SUMMARY | 2024-08-07 17:29 | XMS_ITS | Encounter Summary ---
Author Organization [employer] Address [address] [place] [address] 7t [place] [address] Care Team Providers Care Telepathist Name Role Phone Ceci Billings MD Primary Care Provide r Reason for Referral * Consultation (Routine) - Pending Review Specialty Diagnoses / Procedures Referred By Hyacinth amos Referred To Contact Orthopaedic Surgery Diagnoses Chronic right shoulder pain Yaniv Pelaez MD [address] [place] [address] Phone: tel: fax: Referral ID Status Reason Start Date Expiration Date Visits Requested Visits Authorized [id number] Pending Review Specialty Services Required 08/07/2024 08/07/2025 1 1 Reason for Visit * Reason Comments Shoulder Pain Encounter Details Date Type Department Care Team (Late st Contact Info) Description 08/07/2024 2:20 PM EDT Office Visit [facility] [address] [place] [address] Yaniv Pelaez MD [address] [place] [address] Chronic right shoulder pain (Primary Dx) Social History Tobacco Use Types [...] Sign Reading Time Taken Comments Blood Pressure 129/76 08/07/2024 1:36 PM EDT Pulse 76 08/07/2024 1:36 PM EDT Temperature 36.9 ??C (98.5 ??F) 08/07/2024 1:36 PM ED T Respiratory Rate 17 08/07/2024 1:36 PM EDT Oxygen Saturation 98% 08/07/2024 1:36 PM EDT Inhaled Oxygen Concentration - - Weight 117 kg (258 lb 6.4 oz) 08/07/2024 1:36 PM EDT Height - - Body Mass Index 43 06/07/2024 11:24 AM EST documented in this encounter Progress Notes * Yaniv Pelaez MD - 08/07/2024 2:20 PM EDT Subjective Patient ID: Windy Chowdhury is a 48 y.o. female who presents for Shoulder Pain. Patient comes complaining of 2 months of right shoulder pain. She does not have any swelling, rangeof motion is preserved but she has discomfort when she raises the arm above the head. She has difficulties with overhead activities and with activities like combing her hair. She describes some radiation of the pain to the right lateral neck. She has tried several muscle relaxants and NSAIDs without symptomatic improvement. She has a personal history of fibromyalgia. Patient is not , she has IUD in place. Review of Systems Constitutional: Negative for chills and fever. HENT: Negative for sore throat. Respiratory: Negative for cough, shortness of breath and wheezing. Cardiovascular: Negative for chest pain, palpitations and leg swelling. Gastrointestinal: Negative for abdominal pain. Musculoskeletal: See HPI Visit Vitals BP 129/76 (BP Location: Right arm, Patient Position: Sitting, BP Cuff Size: Large adult) Pulse 76 Temp 98.5 ??F (36.9 ??C) (Temporal) Resp 17 Wt 258 lb 6.4 oz (117 kg) SpO2 98% BMI 43.00 kg/m?? Smoking Status Never BSA 2.32 m?? Objective Physical Exam Constitutional: Appearance: Normal appearance. Cardiovascular: Rate and Rhythm: Normal rate and regular rhythm. Pulmonary: Effort: Pulmonary effort is normal. Breath sounds: Normal breath sounds. Musculoskeletal: Right shoulder: Tenderness present. No swelling. Left shoulder: No swelling. Right lower leg: No edema. Left lower leg: No edema. Neurological: Mental Status: She is alert. Assessment/Plan Diagnoses and all orders for this visit: Chronic right shoulder pain Comments: 2 months, no trauma ROM is preserved but pain when raising arm above the head. I recommend a course of nabumetone Referral to orthopedics X-ray of the right shoulder prior to orthopedic visit. I refilled her lidocaine patches as requested. Orders: - XR Shoulder 2+ Views Right; Future - Referral to Orthopaedic Surgery; Future Other orders - nabumetone (Relafen) 500 MG tablet; Take 1 tablet (500 mg) by mouth 2 times daily for 10 days. - lidocaine (Lidoderm) 5 % patch; Apply 1 patch topically Once per day. Remove & discard patch within 12 hours or as directed by . documented in this encounter Plan of Treatment Upcoming Encounters Date Type Department Care Team (Late st Contact Info) Description 09/07/2024 9:00 AM EDT Office Visit [facility] MEDICINE [address] [place] [address] Ceci Billings MD [address] [place] [address] Scheduled Referrals Name Type Priority Associated Diagnoses Order Schedule Referral to Orthopaedic Surgery Outpatient Referral Routine Chronic right shoulder pain Expected: 08/07/2024 (Approximate), Expires: 08/07/2025 documented as of this encounter Procedures Procedure Name Priority Date/Time Associated Diagnosis Comments XR SHOULDER 2+ VIEWS RIGHT Routine 08/07/2024 2:14 PM EDT Chronic right shoulder pain documented in this encounter Results * XR Shoulder 2+ Views Right (08/07/2024 2:14 PM EDT) Anatomical Region Laterality Modality Upper Extremities, Shoulder Right Radi ographic Imaging 08/07/2024 2:14 PM EDT Narrative 08/07/2024 2:38 PM EDT ?[facility] ?[address] ?[place] [address] ?XRay Report ? Signed ? Patient: Windy Mcfarlane ?MR# ?? : [id number] ? : 1975 ?Acct:[id number] ? Age/Sex: 48 / F ?ADM Date: 04/15/25 ? Loc: HO.HHCX ? Attending : Yaniv Name MD ? Ordering Physician: Name,Yaniv MANCINI ?? Date of Service: 08/07/24 ?? Procedure(s): XR shoulder RT min 2V ?? Accession Number(s): [id number] ? cc: Name,Yaniv MANCINI ? EXAMINATION: ?? XR SHOULDER, RIGHT ? CLINICAL INFORMATION: ?? 2 months of rigth shoulder pain and no history of trauma ? COMPARISON: ?? None available. ? TECHNIQUE: ?? AP external rotation, Grashey, scapular Y, and axillary views of the ?? right shoulder. ? FINDINGS: ?? No acute cortical disruption or malalignment. No lytic or blastic ?? lesions. The acromioclavicular joint measures 5 mm. ? XR/XR shoulder RT min 2V ?? IMPRESSION: ?? No acute fracture or dislocation. No gross degenerative changes. ? Electronically signed by: ??Bill Gavin MD ??08/07/2024 02:35 PM ?? EDT RP ? Dictated By: ?Bill Hi MD ? Signed By: ?<Electronically signed by Bill Pacheco MD in OV> ? 08/07/24 1435 ? DD/ 1414 ? TD/TT: 08/07/24 1430 ? Sales Stock Associate: ? Procedure Note Dontammieinterpreter, Image - 08/07/2024 [place] [address] XRay Report Signed Patient: Windy McfarlaneMR# : [id number] : 1975Acct:[id number] Age/Sex: 48 / FADM Date: 08/07/24 Loc: HO.HHCX Attending Dr: Yaniv Pelaez MD Ordering Physician: Yaniv Pelaez MD Date of Service: 08/07/24 Procedure(s): XR shoulder RT min 2V Accession Number(s): [id number] cc: Yaniv Pelaez MD EXAMINATION: XR SHOULDER, RIGHT CLINICAL INFORMATION: 2 months of rigth shoulder pain and no history of trauma COMPARISON: None available. TECHNIQUE: AP external rotation, Grashey, scapular Y, and axillary views of the right shoulder. FINDINGS: No acute cortical disruption or malalignment. No lytic or blastic lesions. The acromioclavicular joint measures 5 mm. XR/XR shoulder RT min 2V IMPRESSION: No acute fracture or dislocation. No gross degenerative changes. Electronically signed by: Bill Gavin MD 08/07/2024 02:35 PM EDT RP Dictated By: Bill Hi MD Signed By: <Electronically signed by Bill Pacheco MDin OV> 08/07/24 1435 DD/ 1414 TD/TT: 08/07/24 1430 Sales Stock Associate: Yaniv Name IMG XR PROCEDURES Final Result documented in this encounter Visit Diagnoses Diagnosis Chronic right shoulder pain- Primary Pain in joint, shoulder region documented in this encounter Additional Health Concerns Assessment Noted Time PHQ-9 Depression Total Score: 0 10/05/19 24 9:33 AM EDT documented as of this encounter Care Teams Telepathist Relationship Specialty Start Date End Date Ceci Billings MD [address] [place] [address] PCP - General Family Medicine 06/02/20 documented as of this encounter
--- OUTSIDE RECORDS SUMMARY | 2024-08-07 17:29 | XMS_ITS | Clinical Summary ---
Author Organization [employer] Address [address] [facility] [address] [place] [address] Care Team Providers Care Teacher Public Health Name Role Phone Ceci Billings MD Primary [...] tip and replace cap. 16 g 12 3 Active triamcinolone (Kenalog) 0.1 % creamIndications :Contact dermatitis, unspecified contact dermatitis type, unspecified trigger Apply topically if needed in the morning and at bedtime (pain and swelling). 30 g 4 Active fluticasone (Flovent) 110 MCG/ACT inhalerIndicatio ns:Mild persistent asthma without complication Inhale 1 puff in the morning and at bedtime. Rinse mouth with water after use to reduce aftertaste and incidence of candidiasis. Do not swallow. 12 g 11 4 025 Active docusate sodium (Colace) 100 MG capsuleIndicatio ns:Crohn's disease of both small and large intestine without complication (CMS/HCC) Take 1 capsule (100 mg) by mouth 2 times daily. 180 capsule 4 Active albuterol (Ventolin HFA) 108 (90 Base) MCG/ACT inhalerIndicatio ns:Mild persistent asthma without complication INHALE 2 PUFFS BY MOUTH THREE TIMES DAILY NEEDED 18 g 3 4 Active gabapentin (Neurontin) 400 MG capsuleIndicatio ns:Neuropathy Take 1 capsule (400 mg) by mouth 3 times daily. 90 capsule 3 4 025 Active Tirzepatide-Weig ht Management (Zepbound) 2.5 MG/0.5ML solution auto-injectorInd ications:Class 3 severe obesity with serious comorbidity and body mass index (BMI) of 45.0 to 49.9 in adult, unspecified obesity type Inject 0.5 mL (2.5 mg) under the skin 1 (one) time per week. 2 mL 4 Active zolpidem (Ambien) 10 MG tabletIndication s:Insomnia, unspecified type TAKE 1 TABLET BY MOUTH AT BEDTIME 30 tablet 5 4 Active famotidine (Pepcid) 20 MG tabletIndication s:Heartburn Take 1 tablet (20 mg) by mouth 2 times daily. 60 tablet 11 4 025 Active propranolol (Inderal) 20 MG tabletIndication s:Migraine without aura, not refractory TAKE 1 TABLET(20 MG) BY MOUTH EVERY DAY 90 tablet 1 4 Active butalbital-aceta minophen-caffein e 50-325-40 MG tabletIndication s:Migraine without aura, not refractory Take 1 tablet by mouth every 12 (twelve) hours if needed for migraine (max two days per week). 15 tablet 2 4 Active ondansetron (Zofran) 4 MG tabletIndication s:Migraine without aura, not refractory Take 1 tablet (4 mg) by mouth every 8 (eight) hours if needed for nausea or vomiting. 20 tablet 4 Active fexofenadine (Allergy Relief) 180 MG tablet TAKE 1 TABLET BY MOUTH EVERY DAY NEEDED 90 tablet 5 Active senna (Senokot) 8.6 MG tabletIndication s:Crohn's disease of both small and large intestine without complication (CMS/HCC) TAKE 2 TABLETS BY MOUTH TWICE DAILY 360 tablet 5 Active acetaminophen (Tylenol 8 Hour) 650 MG ER tabletIndication s:Lumbar radiculopathy, chronic TAKE 2 TABLETS(1300 MG) BY MOUTH EVERY 8 HOURS NEEDED FOR MILD PAIN. DO NOT CRUSH, CHEW, OR SPLIT 40 tablet 5 Active dicyclomine (Bentyl) 20 MG tabletIndication s:Crohn's disease of both small and large intestine without complication (CMS/HCC) TAKE 1 TABLET BY MOUTH IF NEEDED IN THE MORNING, AT NOON, AND AT BEDTIME 90 tablet 1 5 Active Tirzepatide-Weig ht Management (Zepbound) 5 MG/0.5ML solution auto-injectorInd ications:Class 3 severe obesity with serious comorbidity and body mass index (BMI) of 45.0 to 49.9 in adult, unspecified obesity type Inject 0.5 mL (5 mg) under the skin 1 (one) time per week. 2 mL 5 Active bisacodyl (Dulcolax) 5 MG EC tabletIndication s:Other constipation Take 1 tablet (5 mg) by mouth if needed each day for constipation. Do not crush, chew, or split. 30 tablet 1 5 025 Active Tirzepatide-Weig ht Management (Zepbound) 7.5 MG/0.5ML solution auto-injectorInd ications:Class 3 severe obesity with serious comorbidity and body mass index (BMI) of 45.0 to 49.9 in adult, unspecified obesity type Inject 0.5 mL (7.5 mg) under the skin 1 (one) time per week. 2 mL 5 Active nabumetone (Relafen) 500 MG tablet Take 1 tablet (500 mg) by mouth 2 times daily for 10 days. 20 tablet 5 025 Active lidocaine (Lidoderm) 5 % patch Apply 1 patch topically Once per day. Remove & discard patch within 12 hours or as directed by MD. 30 patch 5 025 Active ibuprofen 800 MG tablet Take 1 tablet (800 mg) by mouth every 8 (eight) hours if needed for mild pain, moderate pain, fever or headaches. 45 tablet 1 3 025 Discontin ued(Ineff ective) methocarbamol (Robaxin) 750 MG tabletIndication s:Fibromyalgia Take 1 tablet (750 mg) by mouth 4 times daily. 40 tablet 2 5 025 Discontin ued(Ineff ective) Active Problems Problem Noted Date Diagnosed Date Metrorrhagia 07/24/2024 Assessment & Plan (07/24/2024 12:15 PM EDT): Blood work ordered today patient will be contacted with results Continue to follow-up with gynecology Other constipation 10/05/2023 Assessment & Plan (07/24/2024 12:15 PM EDT): Increase water and fiber in diet Dulcolax prescribed today Assessment & Plan (11/04/2023 10:15 AM EDT): Increase water and fiber on diet Patient will call GI office for a f/u appointment I will inquie about PA for linzess Assessment & Plan (10/05/2023 12:37 PM EDT): Medications had fail to relive constipation she tried senna, miralax, colace, I will prescrib today linzees and I ask her to f/u with GI Fibromyalgia 10/05/2023 Assessment & Plan (07/24/2024 12:21 PM EDT): Patient was educated about multidisciplinary approach for her condition, it was advise cardiovascular exercise, maintain hydration, treat anxiety/depression and take medications as directed Patient has been already refer in the past to rheumatology I advised to follow- up with them as well Patient also referred in the past to pain management advised to follow-up with them as well Assessment & Plan (06/07/2024 3:24 PM EST): [...] 49.9 in adult 07/07/2023 Assessment & Plan (07/24/2024 12:16 PM EDT): I advised healthy diet, portion control, cardiovascular exercise I increased her Zepbound to 7.5 mg weekly Patient educated about how to manage her diet once medication is stopped Assessment & Plan (06/07/2024 3:24 PM EST): [...] Encounters Date Type Department Care Team Description 08/07/2024 2:20 PM EDT Office Visit [facility] [address] [place] [phone] Name, MD Yaniv Chronic right shoulder pain (Primary Dx) 07/24/2024 11:30 AM EDT Telemedicine [facility] [address] [place] [address] Ceci Billings MD Other constipation (Primary Dx); Class 3 severe obesity with serious comorbidity and body mass index (BMI) of 45.0 to 49.9 in adult, unspecified obesity type; Metrorrhagia; Fibromyalgia 07/24/2024 Travel 07/23/2024 Telephone [facility] [address] [place] [phone] Ceci Billings MD CHART PREP 07/18/2024 Refill [facility] [address] [place] [address] Ceci Billings MD 07/06/2024 Population Health Risk Score [facility] ([facility] Department [address] [phone] Provider, Population Health Generic 07/03/2024 Orders Only [facility] [address] [place], [place] [phone] ProviderChito MD 07/02/2024 Refill [facility] [address] [place] [address] Ceci Billings MD Class 3 severe obesity with serious comorbidity and body mass index (BMI) of 45.0 to 49.9 in adult, unspecified obesity type ([facility]/HCC) 06/27/2024 Refill [facility] [address] [place] [address] Ceci Billings MD Lumbar radiculopathy, chronic; Crohn's disease of both small and large intestine without complication ([facility]/HCC) 06/22/2024 Refill [facility] [address] [place] [address] Ceci Billings MD Migraine without aura, not refractory 06/11/2024 Refill [facility] [address] [place] [address] Ceci Billings MD Crohn's disease of both small and large intestine without complication ([facility]) 06/07/2024 11:30 AM EST Office Visit [facility] [address] [place], [place] [phone] Ceci Billings MD Fibromyalgia (Primary Dx); Class 3 severe obesity with serious comorbidity and body mass index (BMI) of 45.0 to 49.9 in adult, unspecified obesity type (CMS/HCC) 06/07/2024 Travel 05/28/2024 Telephone [facility] [address] [place], [place] [phone] Ceci Billings MD Prior Authorization ( PARK Request: Zepbound) 05/25/2024 Patient Outreach [facility] [address] [place] [address] Ceci Billings MD Pre-visit Planning (SDOH screening negative and tobacco screening negative) 05/22/2024 Refill [facility] [address] [place] [address] Ceci Billings MD from Last 3 Months Immunizations Name Administration [...] 6.4 oz) 08/07/2024 1:36 PM EDT Height 165.1 cm (5' 5 ) 06/07/2024 11:24 AM EST Body Mass Index 43 06/07/2024 11:24 AM EST Plan of Treatment Upcoming Encounters Date Type Department Care Team (Late st Contact Info) Description 09/07/2024 9:00 AM EDT Office Visit [facility] [address] [place] [address] Ceci Billings MD [address] [place] [address] Health Maintenance Due Date Last Done Comments CT Colonography 1975 FIT DNA/Cologuard 1975 FIT 1975 FOBT 1975 HIV Screening 1975 Sigmoidoscopy 1975 Alcohol/Substance Use Screening 1988 Family Planning (PISQ) 09/12/1991 Hepatitis C Screening 1994 Pap Smear 1997 COVID-19 Vaccine (2023- season) 2023 08/19/2020, 07/11/2020 Influenza Vaccine (#1) 2023 , 05/07/2021, 12/24/2020, Additional history exists Depression Screening 10/04/2024 10/05/2023, 10/05/19 SDOH Screening 05/25/2025 05/25/2024 Tobacco Screening 06/07/2025 06/07/2024 Mammogram 07/12/2025 07/12/2024, 03/25, 04/04/2023, Additional history exists Zoster Vaccines (1 of 2) 2026 Cervical [...] Procedure Name Priority Date/Time Associated Diagnosis Comments HEMOGLOBIN A1C Routine 08/07/2024 2:25 PM EDT Class 3 severe obesity with serious comorbidity and body mass index (BMI) of 45.0 to 49.9 in adult, unspecified obesity type CBC WITH AUTO DIFFERENTIAL Routine 08/07/2024 2:25 PM EDT Metrorrhagia XR SHOULDER 2+ VIEWS RIGHT Routine 08/07/2024 2:14 PM EDT Chronic right shoulder pain BI MAMMOGRAM SCREENING TOMOSYNTHESIS BILATERAL Routine 07/12/2024 1:45 PM EDT BACTERIAL VAGINOSIS PANEL Routine 07/03/2024 12:00 AM EDT CHLAMYDIA/N. GONORRHOEAE RNA, TMA, UROGENITAL Routine 07/03/2024 12:00 AM EDT HM COLONOSCOPY Routine 08/23/2023 11:53 AM EDT LIPID PANEL, STANDARD Routine 08/06/2022 10:02 AM EDT Migraine without aura, not refractory ZZZ HISTORICAL HPV E6/E7 RFLX JESSICA 16 18/45 Routine 11/09/2021 2:40 PM EDT from Last 3 Months or Most Recently Relevant to Health Maintenance Results * (ABNORMAL) CBC auto differential (08/07/2024 2:25 PM EDT) White Blood Count 4.1(L) 4.8 - 10.8 X10*3/uL [facility] Red Blood Count 4.61 4.20 - 5.50 X10*6/uL [facility] Hemoglobin 12.5 12.0 - 16.0 g/dl [facility] Hematocrit 39.7 37.0 - 47.0 % [facility] Mean Corpuscular Volume 86.1 80.0 - 98.0 fL [facility] Mean Corpuscular Hemoglobin 27.1 27.0 - 33.0 pg [facility] Mean Corpuscular HGB Conc 31.5 31.0 - 35.0 g/dl [facility] Red Cell Distribution Width 13.6 11.0 - 16.0 % [facility] Platelet Count 219 160 - 400 X10*3/uL [facility] Mean Platelet Volume 11.0 9.4 - 12.3 fL [facility] Neutrophils Percent Auto 56.8 45 - 73 % [facility] Imm Gran Pct Auto 0.2 0.0 - 0.4 % [facility] Lymphocytes Percent Auto 31.1 20 - 40 % [facility] Monocytes Percent Auto 9.7 2 - 11 % [facility] Eosinophils Percent Auto 1.5 0 - 4 % [facility] Basophils Percent Auto 0.7 0 - 2 % [facility] NRBC Pct Auto 0.0 0.0 - 0.2 /100WBC [facility] Neutrophils Absolute Auto 2.3 2.0 - 8.3 x10*3/uL [facility] Imm Gran Abs Auto 0.01 0.00 - 0.03 X10*3/uL [facility] Lymphocytes Absolute Auto 1.3 1.2 - 4.9 X10*3/uL [facility] Monocytes Absolute Auto 0.4 0.1 - 1.2 X10*3/uL [facility] Eosinophils Absolute Auto 0.1 0.0 - 0.4 X10*3/uL [facility] Basophils Absolute Auto 0.0 0.0 - 0.2 X10*3/uL [facility] NRBC Abs Auto 0.000 0.0 - 0.012 X10*3/uL [facility] Blood Venous blood specimen / Unknown 08/07/2024 2:25 PM EDT 08/07/2024 4:10 PM EDT Ceci Peacock MD LAB BLOOD ORDERABLES Final Result Performing Organization Address [facility] Co de Phone Number [facility] [address] [place] [phone] * Hemoglobin A1c (08/07/2024 2:25 PM EDT) Hemoglobin A1c 5.1 <6.0 % [facility] Comment:Hemoglobin A1C Refer ence Range Adults: 4.8 - 6.0 % Non diabetic: < 6.0 % Goal: < 7.0 %Additional Action Suggested: > 8.0 %Note: Hemoglobin A1c results are invalid for patients with abnormal amounts of HbF. Blood transfusions may impact the HbA1c concentration in the patient sample. Estimated Average Glucose 100 mg/dL [facility] Comment:eAG = Estimated ave rage glucose which is %A1C expressed asaverage glucose, using the formula of the V4Z-NapsdejPgrkzwe Glucose study (ADAG), Diabetes Care, Vol.31,#8,Aug. 2007 Blood Venous blood specimen / Unknown 08/07/2024 2:25 PM EDT 08/07/2024 4:10 PM EDT us Ceci Peacock MD LAB BLOOD ORDERABLES Final Result Performing Organization Address [facility]/ZIP Co de Phone Number [facility] [address] [place] [phone] * XR Shoulder 2+ Views Right (08/07/2024 2:14 PM EDT) Anatomical Region Laterality Modality Upper Extremities, Shoulder Right Radi ographic Imaging 08/07/2024 2:14 PM EDT Narrative 08/07/2024 2:38 PM EDT ?[facility] ?[address] ?[place] [address] ?XRay Report ? Signed ? Patient: Lloyd Chowdhury,Windy ?MR# ?? : [id number] ? : 1975 ?Acct:[id number] ? Age/Sex: 48 / F ?ADM Date: 08/07/24 ? Loc: HO.HHCX ? Attending Dr: Yaniv Pelaez MD ? Ordering Physician: Yaniv Pelaez MD ?? Date of Service: 08/07/24 ?? Procedure(s): XR shoulder RT min 2V ?? Accession Number(s): [id number] ? cc: Yaniv Pelaez MD ? EXAMINATION: ?? XR SHOULDER, RIGHT ? [...] DD/ 1414 ? TD/TT: 08/07/24 1430 ? Infantry Weapons Officer: ? Procedure Note Isidra, Image - 08/07/[address] [address] XRay Report Signed Patient: Rubén McfarlaneHazel# : [id number] : 1975Acct:[id number] Age/Sex: 48 / FADM Date: 08/07/24 Loc: .HHCX Attending Dr: Yaniv Pelaez MD Ordering Physician: Yaniv Pelaez MD Date of Service: 08/07/24 Procedure(s): XR shoulder RT min 2V Accession Number(s): [id number] cc: Yaniv Pelaez MD EXAMINATION: XR SHOULDER, [...] Bill Gavin MD 08/07/2024 02:35 PM EDT Dictated By: Bill Hi MD Signed By: <Electronically signed by Bill Pacheco MDin OV> 08/07/24 1435 DD/ 1414 TD/TT: 08/07/24 1430 Infantry Weapons Officer: Yaniv Pelaez MD IMG XR PROCEDURES Final Result * BI Mammogram Screening Tomosynthesis Bilateral (07/12/2024 1:45 PM EDT) Anatomical Region Laterality Modality Breast Bilateral Mammography 07/12/2024 1:45 PM EDT Narrative 07/20/2024 4:18 PM EDT ? [facility] ? [address] ?[place] [address] ?[phone] ? Mammography Report ? Signed ? Patient: Windy Mcfarlane ?MR# ?? : [id number] ? : 1975 ?Acct:[id number] ? Age/Sex: 48 / F ?ADM Date: 03/20/25 ? Loc: HO.MAMMO ? Attending Amor Peacock MD ? Ordering Physician: Ceci Billings MD ?Results: ?? 2Benign Findings ? Date of Service: 07/12/24 ?Follow Up: 1 Year From Orig ?? inal Mammogram ? Procedure(s): MM tomosynthesis screening BI ?? Accession Number(s): [id number] ? cc: Ceci Billings MD ? EXAMINATION: [...] ??Zulema Bruno DO ??07/20/2024 04:14 PM EDT ?? RP ? Dictated By: ?Zulema Bruno DO ? Signed By: ?<Electronically signed by Zulema Bruno, DO in OV> ? 07/20/24 1614 ? DD/ 1345 ? TD/TT: 07/12/24 1401 ? Infantry Weapons Officer: ? Procedure Note Donotuseinterpreter, Image - [facility] [address] [place] [address] Mammography Report Signed Patient: Windy McfarlaneMR# : [id number] : 1975Acct:[id number] Age/Sex: 48 / FADM Date: 07/12/24 Loc: HO.MAMMO Attending Dr: Ceci Peacock MD Ordering Physician: Ceci Billings MDResults: 2Benign Findings Date of Service: 07/12/24Follow Up: 1 Year From Orig inal Mammogram Procedure(s): MM tomosynthesis screening BI Accession Number(s): [id number] cc: Ceci Billings MD EXAMINATION: MM SCREENING [...] Zulema Bruno DO 07/20/2024 04:14 PM EDT Dictated By: Zulema Bruno DO Signed By: <Electronically signed by Zulema Bruno DO in OV> 07/20/24 1614 DD/ 1345 TD/TT: 07/12/24 1401 Infantry Weapons Officer: Ceci Peacock MD IMG BI PROCEDURES Fin al Result * Bacterial Vaginosis (07/03/2024 12:00 AM EDT) TRICHOMONAS VAGINALIS DETECTION BY PCR NOT DETECTED Not Detect [facility] BACTERIAL VAGINOSIS DETECTION BY PCR NEGATIVE Negative [facility] Comment:The BV organism targ ets [...] DETECTION BY PCR NOT DETECTED Not Detect [facility] Jeni glab krusei PCR NOT DETECTED Not Detect [facility] 07/03/2024 07/03/2024 Generic External Data Provider LAB MICROBIOLOGY - GENERAL ORDERABLES Final Result [facility] [address] [place] [phone] * Chlamydia/N. Gonorrhoeae RNA, TMA, Urogenitial (07/03/2024 12:00 AM EDT) CT PCR NOT DETECTED Not Detect. [facility] Comment:A not detected test result [...] psychologicalconsequences. NG PCR NOT DETECTED Not Detect. [facility] Comment:A not detected test result [...] medical, social or psychologicalconsequences. 07/03/2024 07/03/2024 Narrative [facility] - 07/04/2024 5:16 AM EDT Vaginal Generic External Data Provider LAB MICROBIOLOGY - GENERAL ORDERABLES Final Result [facility] [address] [place] [phone] * Hm Colonoscopy (08/23/2023 11:53 AM EDT) Historical Provider HEALTH MAINTENANCE Final Result * Lipid Panel, Standard (08/06/2022 10:02 AM EDT) Cholesterol, Total 144 <200 mg/dL [facility] HDL Cholesterol 58 > OR = 50 mg/dL [facility] [place] [facility] Triglycerides 49 <150 mg/dL [facility] [place] [facility] LDL Cholesterol 72 mg/dL (calc) [facility] Comment: Reference range: <100 Desirable range <100 mg/dL for primary prevention; ?? <70 mg/dL for patients with CHD or diabetic patients with > or = 2 CHD risk factors. LDL-C is now calculated using the Christophe calculation, which is a validated novel method providing better accuracy than the Friedewald equation in the estimation of LDL-C. Blayne PEREZ et al. NICHELLE. 2013;310(19): 5237-4578 (http://Next Big Sound.Fnbox/faq/PPJ651) Chol/HDLC Ratio 2.5 <5.0 (calc) [facility] Non-HDL Cholesterol 86 <130 mg/dL (calc) [facility] Comment: For patients with diabetes plus 1 major ASCVD risk factor, treating to a non-HDL-C goal of <100 mg/dL (LDL-C of <70 mg/dL) is considered a therapeutic option. Blood Venous blood specimen / Unknown 08/06/2022 10:02 AM EDT 08/06/2022 10:02 AM EDT Narrative [facility] - 08/07/2022 2:37 AM EDT FASTING:NO FASTING: NO Ceci Peacock MD LAB BLOOD ORDERABLES Final Result [facility] [address], [facility] [place] [phone] [facility] [place] [facility] [address] [place] [phone] * HPV E6/E7 RFLX JESSICA 16 18/45 (11/09/2021 2:40 PM EDT) HPV mRNA E6/E7 rflx Not Detected Not Detected [facility] Comment: Methodology: Panel Fitter-Mediated Amplification This assay detects E6/E7 viral messenger RNA (mRNA) from 14 high-risk HPV types (16,18,31,33,35,39,45,51,52,56,58,59,66,68). Cervical sources are required for HPV testing. If a vaginal source from a patient who has had a total hysterectomy with removal of cervix was submitted, please contact the testing laboratory for alternative testing options. For additional information, please refer to http://education.ABS/faq/NZR419y7 (This link if provided for information/ educational purposes only.) THIS TEST WAS PERFORMED AT: [facility] [address] [place] [address] [address] [place], [place] ??[phone] TIN DICKEY MD 11/09/2021 2:40 PM EDT us [place] HISTORICAL/NON ORDERABLE LABS Fi nal Result [facility] [address] from Last 3 Months or Most Recently Relevant to Health Maintenance Insurance [facility] Care Teams Teacher Public Health Relationship Specialty Start Date End Date Ceci Billings MD [address] [place] [address] PCP - General Family Medicine 06/02/20
== END 2024-08-07 14:14 | disposition home or self-care (01) ==
LOC: HO.HHCX 14:13
PROVIDERS: Visit Provider Internal Medicine Geriatric Medicine
DX: M25.511 Pain in right shoulder (principal); G89.29 Other chronic pain
CPT/HCPCS: 73030

== ENCOUNTER → 2024-08-07 14:14 | Outpatient (BNV) | payer MEDICAID, SELFPAY | PROVIDERS: Visit Provider Radiology Diagnostic Radiology | DX: M25.511 Pain in right shoulder (principal) | CPT/HCPCS: 73030 ==

== ENCOUNTER 2024-08-07 14:23 | Outpatient (REF) | payer MEDICAID, SELFPAY ==
[2024-08-07 16:13] LABS: MANUAL DIFF FLAG NO
[2024-08-07 16:30] LABS: Basophils Percent Auto 0.7 % (0-2); Eosinophils Absolute Auto 0.1 X10*3/uL (0.0-0.4); Eosinophils Percent Auto 1.5 % (0-4); Hematocrit 39.7 % (37.0-47.0); Hemoglobin 12.5 g/dl (12.0-16.0); Imm Gran Abs Auto 0.01 X10*3/uL (0.00-0.03); Imm Gran Pct Auto 0.2 % (0.0-0.4); Lymphocytes Absolute Auto 1.3 X10*3/uL (1.2-4.9); Lymphocytes Percent Auto 31.1 % (20-40); Mean Corpuscular HGB Conc 31.5 g/dl (31.0-35.0); Mean Corpuscular Hemoglobin 27.1 pg (27.0-33.0); Mean Corpuscular Volume 86.1 fL (80.0-98.0); Monocytes Absolute Auto 0.4 X10*3/uL (0.1-1.2); Monocytes Percent Auto 9.7 % (2-11); Neutrophils Absolute Auto 2.3 x10*3/uL (2.0-8.3); Neutrophils Percent Auto 56.8 % (45-73); Platelet Count 219 X10*3/uL (160-400); Red Blood Count 4.61 X10*6/uL (4.20-5.50); Red Cell Distribution Width 13.6 % (11.0-16.0); White Blood Count 4.1 X10*3/uL (4.8-10.8)
[2024-08-07 16:33] LABS: Estimated Average Glucose 100 mg/dL; Hemoglobin A1c % 5.1 % (<6.0); Total Hemoglobin (HGBA1C) 3349.5417 umol/L
[2024-08-07 18:04] LABS: Alanine Aminotransferase 12 U/L (0-31); Albumin Level 3.5 g/dL (3.5-5.0); Alkaline Phosphatase 51 U/L (39-117); Anion Gap 11 (12-20); Aspartate Amino Transferase 17 U/L (5-31); Bilirubin Total 0.2 mg/dL (0.0-1.0); Blood Urea Nitrogen 12 mg/dL (9-16); Calcium 8.6 mg/dL (8.4-10.2); Carbon Dioxide 26 mmol/L (22-29); Chloride 108 mmol/L (96-108); Cholesterol 154 mg/dL (<200); Estimated Glomerular Filt Rate > 60; Glucose Random 86 mg/dL (60-115); HDL Cholesterol 50 mg/dL (>40); LDL Cholesterol Calculated 92 mg/dL (<100); Potassium 3.8 mmol/L (3.3-5.1); Sodium 141 mmol/L (135-145); TSH reflex Free T4 1.38 uIU/mL (0.32-4.0); Total Protein 6.7 g/dL (6.5-8.0); Triglycerides 63 mg/dL (<150); Vitamin D 25-OH Total 21.1 ng/mL (>30)
== END 2024-08-07 14:24 | disposition home or self-care (01) ==
LOC: HO.HHCL 14:23
PROVIDERS: Visit Provider Internal Medicine
DX: E66.813 Obesity, class 3 (principal); E66.01 Morbid (severe) obesity due to excess calories; Z68.42 Body mass index [BMI] 45.0-49.9, adult; N92.1 Excessive and frequent menstruation with irregular cycle
CPT/HCPCS: 36415; 80053; 80061; 82306; 83036; 84443; 85025

== ENCOUNTER 2024-08-29 13:07 | Outpatient (AMB) | payer MEDICAID, SELFPAY ==
--- NOTE | 2024-08-29 13:13 | MHC.OFFVIS ---
Vital Signs 08/29/24 13:17 Height 5 ft 8 in Weight 260 lb BMI 39.5 Intake Visit Reasons: INJ- B/L knee Euflexxa#1 Intake Note: Windy is a 48 year old female who presents today for a bilateral knee Euflexxa injections #1. Allergies ciprofloxacin [From CIPRO] Allergy (Severe, Verified 08/29/24 13:17) GI PAIN vancomycin Allergy (Severe, Verified 08/29/24 13:17) Anaphylaxis HPI HPI INJ- B/L knee Euflexxa#1: Details: 48-year-old female presents to the office today for her 1st set of Euflexxa injections bilateral knee PFSH Medical History COVID Somnolence, daytime TANA (obstructive sleep apnea) Allergic rhinitis Bronchial asthma Trigger finger Dysuria Obesity, morbid, BMI 40.0-49.9 Encounter for Papanicolaou smear for cervical cancer screening Asthma Insomnia Crohn's disease Surgical History History of removal of laparoscopic gastric banding device Hx of hand surgery History of carpal tunnel surgery Hx of laparoscopic gastric banding Hx of breast reduction, elective Family History Father HIV (human immunodeficiency virus infection) Mother Hypertension Maternal Grandmother Diabetes mellitus Maternal Grandfather Hypertension Lymphoma Paternal Grandfather No problems noted. 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 Tenderness along the medial and lateral joint line. Full ROM with crepitus. Negative Ivan?s. No ligamentous laxity. NVI. Office Procedures AMB Joint Injection/Aspiration Joint Injection/Aspiration Details: euflexxa Primary Site: right knee Secondary Site: left knee Prep: site was prepped using aseptic technique and ethochloride spray was applied Injected: in the joint Approach Used: anterolateral Procedure: The patient tolerated the procedure well Coding 75260 - Glenohumeral/Tronchanteric Bursa/Intraarticular Procedure code (CPT) selection complete Assessment & Plan Assessment & Plan (1) Patellofemoral arthritis of right knee: Comment: Painful when she walks her treadmill. Is awaiting approval to try gel discussed considering exercise bike. Code(s): M17.11 - Unilateral primary osteoarthritis, right knee Category: Medical (2) Osteoarthritis of left knee: Code(s): M17.12 - Unilateral primary osteoarthritis, left knee Category: Medical Plan Bilateral knees injected today with Euflexxa 1. She will rest and use ice and anti-inflammatories as needed and see me back in 1 week for injection #2 Coding Level of Care Code Procedure Only Diagnoses Patellofemoral arthritis of right knee M17.11 Osteoarthritis of left knee M17.12 CPT Codes Coding - Joint 7: 37127 - Glenohumeral/Tronchanteric Bursa/Intraarticular ([id number])
[2024-08-29 13:17] VITALS: BMI 39.5
--- OUTSIDE RECORDS SUMMARY | 2024-08-29 14:20 | XMS_ITS | Patient Health Record ---
Author Organization [facility] Address [address] [place] [address] Care Team Providers Care Convention Services Director Name Role Phone Reymundo WEEMS, Summer Primary Care Provider Emerson Sauceda [phone] Allergies Allergen (clinical drug ingredient) Drug/Non Drug Allergy documented on EMR Reaction Allergy Type Onset Date Status vancomycin Vancomycin HCl Unknown Drug Allergy A ctive ciprofloxacin cipro (uncoded) Unknown Allergy Active Results Component Value Reference Range Notes Complete Blood Count Auto Di ff Reviewed date:04/09/2024 10:38:42 PM Interpretation: Performing Lab:[facility], [address] [place] [address] Notes/Report: White Blood Count 5.2 4.8-10.8 X10*3/uL [...] Panel Reviewed date:04/04/2024 01:40:57 PM Interpretation: Performing Lab:[address] [id number] Notes/Report: Bilirubin Total 0.2 0.0-1.0 mg/dL Bilirubin Direct < 0.2 0.0-0.5 mg/dL Aspartate Amino Transferase 22 5-31 U/L Alanine Aminotransferase 34 0-31 U/L Total Protein 7.2 6.5-8.0 g/dL Albumin Level 3.7 3.5-5.0 g/dL Alkaline Phosphatase 71 39-117 U/L Dakota AVINA Reviewed date:06/05/2024 05:15:56 PM Interpretation: Performing Lab:[address] [id number] Notes/Report: Dakota AVINA SEE NOTE SEE SCA NNED RESULTS IN [...] TIMES DAILY WITH MEALS for 30 Active Nbdkfawvws-WCMF-Yswnnq ne 50-325-40 MG TAKE 1 TO 2 [...] She does not smoke nor use a ks significant amounts of alcohol. She does not smoke nor use a ks significant amounts of alcohol. She does not smoke nor use a ks significant amounts of alcohol. She does not smoke nor use a ks significant amounts of alcohol. She does not [...] Status Risk Notes Problem Colon cancer screening (433500878) Colon cancer screening (Z12.11) Active confirmed Problem Irritable bowel syndrome (17532944) Irritable bowel syndrome (K58.9) Active confirmed Problem 28894405 Crohn's disease of both small and large intestine without complication (K50.80) Active confirmed Problem 662375519 Nausea (R11.0) Active confirmed Problem 698253560 Encounter for therapeutic drug level monitoring (Z51.81) Active confirmed Problem Dysphagia (72903330) Dysphagia (R13.10) Active confirmed Problem 80353910 Crohns disease o f both small and large intestine without complication (K50.80) Active confirmed Problem 436685083 Gastroesophageal reflux disease, esophagitis presence not specified (K21.9) Active confirmed Problem Chronic gastritis (4418628) Chronic gastritis (K29.50) Active confirmed Problem 53224402 Diarrhea, unspecified type (R19.7) Active confirmed Problem 93364583 Crohn''s disease of both small and large intestine without complication (K50.80) Active confirmed Problem 74626539 Erythematous ski n nodule (R22.9) Active confirmed Problem 11666087 Vaginal candidia sis (B37.3) Active confirmed Problem Drug monitoring done (693361411) Encounter for therapeutic drug monitoring (Z51.81) Active confirmed Problem Chronic GERD (K21.9) Active confirmed Vital Signs Blood pressure diastolic 11 mm Hg 06/05/2024 Height 65.5 in 06/05/2024 Blood pressure systolic 111 mm Hg 06/05/2024 Weight 267 lbs 06/05/2024 BMI 43.75 kg/m2 06/05/2024 Encounters Encounter Location Date Provider Diagnosis [facility] [address] [place] [address] 06/05/2024 Emerson Canales Crohn's disease of both small and large intestine without complication K50.80 ; Irritable bowel syndrome K58.9 ; Chronic GERD K21.9 and Vaginal candidiasis B37.3 [facility] [address] [place] [address] 12/23/2023 Emerson Canales [facility] [address] [place] [address] 02/03/2024 Emerson Canales [facility] [address] [place] [address] 02/03/2024 Emerson Canales Crohn''s disease of both small and large intestine without complication K50.80 and Encounter for therapeutic drug monitoring Z51.81 [facility] [address] [place] [address] 05/01/2024 Emerson Canales [facility] [address] [place] [address] 06/05/2024 Emerson Canales [facility] [address] [place] [address] 06/14/2024 Emerson Canales [facility] [address] [place] [address] 06/22/2024 Emerson Canales Assessments Encounter Date Diagnosis (ICD Code) Assessment Notes Treatment Notes Treatment Clinical Notes Section Notes 06/05/2024 Irritable bowel syndrome (ICD-10 - K58.9) [...] for therapeutic drug monitoring (ICD-10 - Z51.81) 06/05/2024 Chronic GERD (ICD-10 - K21.9) Overall, [...] keep you advised of her progress. 06/05/2024 Vaginal candidiasis (ICD-10 - B37.3) Overall, [...] to keep you advised of her progress. Plan Of Treatment Pending Test Test Name Order Date CHEM 7 PROFILE 07/10/2020 LIVER PROFILE 01/24/2018 LIVER PROFILE 05/23/2019 LIVER PROFILE 07/11/2017 LIVER PROFILE 07/10/2020 LIVER PROFILE 07/15/2016 LIVER PROFILE 07/12/2016 LIVER PROFILE 04/01/2015 LIVER PROFILE 10/17/2018 LIVER PROFILE 02/03/2024 LIVER PROFILE 01/08/2021 LIVER PROFILE 07/08/2013 LIVER PROFILE 08/13/2021 LIVER PROFILE 12/11/2017 LIVER PROFILE 11/03/2015 IRON + IBC (FE) 08/13/2021 CRP 01/08/2021 CRP 01/24/2018 CRP 08/13/2021 VITAMIN B12 AND FOLATE 08/13/2021 CBC w DIFF 07/08/2013 CBC w DIFF 12/11/2017 CBC w DIFF 05/09/2014 CBC w DIFF 11/03/2015 CBC w DIFF 01/08/2021 CBC w DIFF 07/11/2017 CBC w DIFF 01/24/2018 CBC w DIFF 07/10/2020 CBC w DIFF 07/15/2016 CBC w DIFF 07/12/2016 CBC w DIFF 04/01/2015 CBC w DIFF 08/13/2021 CBC w DIFF 10/17/2018 CBC w DIFF 02/03/2024 CBC w/o DIFF 05/23/2019 SED RATE (ESR) 08/13/2021 SED RATE (ESR) 01/08/2021 SED RATE (ESR) 01/24/2018 OTHER REF LAB TEST - MISC 07/15/2016 OTHER REF LAB TEST - MISC 07/12/2016 NUC HIDA SCAN 02/23/2014 PROMETHEUS THIOPURINE METABOLITES (TPMT) 07/12/2016 PROMETHEUS THIOPURINE METABOLITES (TPMT) 12/11/2017 PROMETHEUS THIOPURINE METABOLITES (TPMT) 07/11/2017 PROMETHEUS THIOPURINE METABOLITES (TPMT) 01/24/2018 T SPOT TB 01/02/2019 C DIFFICILE RFLX PCR 08/19/2022 Ferritin 08/13/2021 Prometheus Anser UST 02/03/2024 Prometheus Anser UST 01/08/2021 GI PANEL 08/19/2022 Future Test Test Name Order Date COLONOSCOPY 05/08/2013 UPPER GI ENDOSCOPY 06/08/2018 COLONOSCOPY 06/08/2018 UPPER GI ENDOSCOPY BALLOOON DILATION OF ESOPH 06/30/2023 COLONOSCOPY 06/30/2023 Next Appt Details Provider Name:Emerson Fry Ally , 01/09/2025 01:20:00 PM, [address] [place] [address], [address], [place], [address], Insurance Providers Payer Name Payer Address Payer Phone Subscriber Number Group Number Insured Name Patient Relationship to Insured Coverage Start Date Coverage End Date MEDICAID OF [facility] [address] [place] [phone] [id number] STEPHIE LLOYD Self - patient is the insured Medical (General) History Medical History History ICD Code Colonoscopy 07-07-2012 Crohn's colitis-diagnosed in 2000- colonoscopy in 02/2009 at [facility] with diffuse colitis/ileitis-has been treated with Remicade, Humira, and azathioprine in the past at [facility]--Stephie reports that the mesalamines and azathioprine seem to exacerbate her GI symptoms with gas and cramps--however, at those time she is usually having active Crohn's disease symptoms as well---she was hospitalized at [facility] in 06/2013 for a flareup of the [...] 01/2019 for the Crohn's and psoriasis Denies DC,DM,CVA,Lung disease,renal dise ase Anemia--sees Dr. Puildo/Dr. Griffiths--rece deb IV Iron in the past [...]
--- OUTSIDE RECORDS SUMMARY | 2024-08-29 14:20 | XMS_ITS | Clinical Summary ---
Author Organization [address] [facility] Address [address] [place] [address] Phone Care Team Providers Care Mine Surveyor Name Role Phone Katrina Sherwood MD Primary Care Provider [phone]- [phone] Allergies Active Allergy Reactions Criticality Noted Date [...] 8:30 AM EDT Office Visit Orthopedic Surgery [facility] [address] [address] Juan Moody DPM Lumbosacral radiculopathy (Primary Dx); Posterior tibial tendinitis of right leg; Equinus contracture of right ankle; Plantar fasciitis from Last 3 Months Social History Tobacco [...] 8:30 AM EDT Office Visit Orthopedic Surgery [facility] [address] [address] Juan Moody DPM [address] [address] Health Maintenance Due Date Last Done Comments [...] Routine 07/09/2024 8:30 AM EDT Plantar fasciitis LIPID PANEL Routine 08/06/2022 HM HPV Routine [...] S Final Result * Lipid panel (08/06/2022) LDL/HDL Ratio 0 Comment:no interpretation, a bstracted Triglycerides 0 mg/dL Comment:no interpretation, a bstracted Cholesterol 0 mg/dL Comment:no interpretation, a bstracted HDL 0 mg/dL Comment:no interpretation, a bstracted LDL Cholesterol 0 mg/dL Comment:no interpretation, a bstracted Blood Venous blood specimen / Unknown Historical Provider LAB BLOOD ORDERABLES Marcelina l Result * Cervical Cancer Screening: HPV (11/09/2021) Pathologist [facility] Cervical Cancer Screening: HPV abstracted Historical Provider HEALTH MAINTENANCE Final Result from Last 3 Months or Most Recently Relevant to Health Maintenance Insurance MEDICAID - [place] Care Teams Mine Surveyor Relationship Specialty Start Date End Date Whitewood, MD Katrina [address] [place] [phone] PCP - General Internal Medicine 01/02/14
--- OUTSIDE RECORDS SUMMARY | 2024-08-29 14:20 | XMS_ITS ---
Author Organization [facility] Address [address] [place] [address] Care Team Providers Care Quality Assurance Manager Name Role Phone Summer Dwyer NP Primary Care Provider Unavailab Emerson Kothari [phone] Encounters Encounter Location Date Provider Diagnosis [facility] [address] [place] [address] 06/05/2024 Emerson Canales Plan Of Treatment Next Appt Details Provider Name:Emerson Canales , 01/09/2025 01:20:00 PM, [address], [address], [place], [address], Progress Notes * STEPHIE DORSEYDOB: 7 (48 yo F)Acc No.[id number]:06/05/2024 Patient:?STEPHIE DORSEY :1975???Age:48 Y???Sex:Female Address:[address] [place] [address] * true * Date:? Generated for Printi gema/Enmanuel/eTransmitting on:?08/29/2024 02:20 PM EDT
--- OUTSIDE RECORDS SUMMARY | 2024-08-29 14:20 | XMS_ITS ---
Author Organization [facility] Address [address] [place] [address] Care Team Providers Care Assistant Tennis Coach Name Role Phone Reymundo WEEMS, Summer Primary Care Provider Unavailab Emerson Kothari [phone] REASON FOR VISIT waiting on ins for every 4 weeks stelara/ denied Encounters Encounter Location Date Provider Diagnosis [facility] [address] [place] [address] 06/14/2024 Emerson Canales Plan Of Treatment Next Appt Details Provider Name:Emerson Canales , 01/09/2025 01:20:00 PM, [address], [address], [place], [address], Progress Notes * STEPHIE LLOYDDOB: 7 (48 yo F)Acc No.[id number]:06/14/2024 Patient:?STEPHIE LLOYD :1975???Age:48 Y???Sex:Female Address:[address] [place] [address] * true * Date:? Generated for [place] gema/Enmanuel/eTransmitting on:?08/29/2024 02:19 PM EDT
--- OUTSIDE RECORDS SUMMARY | 2024-08-29 14:20 | XMS_ITS ---
Author Organization [facility] Address [address] [place] [address] Care Team Providers Care Merchandise Processor Name Role Phone Reymundo WEEMS, Summer Primary Care Provider Unavailab Emerson Kothari [phone] REASON FOR VISIT Stelara Q 4 weeks Rx Encounters Encounter Location Date Provider Diagnosis [facility] [address] [facility] [address] [place] [address] 06/22/2024 Emerson Canales Plan Of Treatment Next Appt Details Provider Name:Emerson Canales , 01/09/2025 01:20:00 PM, [address] [facility], [address], [place], [address], Progress Notes * STEPHIE LLOYDDOB: 7 (48 yo F)Acc No.[id number]:06/22/2024 Patient:?STEPHIE LLOYD :1975???Age:48 Y???Sex:Female Address:[address] [place] [address] * true * Date:? Generated for [place] gema/Enmanuel/eTransmitting on:?08/29/2024 02:20 PM EDT
== END 2024-08-29 13:35 | disposition home or self-care (01) ==
LOC: HO.HOS 13:08
PROVIDERS: PCP Internal Medicine; Visit Provider Physician Assistant
DX: M17.0 Bilateral primary osteoarthritis of knee (principal)
CPT/HCPCS: 20610

== ENCOUNTER → 2024-08-29 13:07 | Outpatient (BNVA) | payer MEDICAID, SELFPAY | PROVIDERS: PCP Internal Medicine; Visit Provider Physician Assistant | DX: M17.0 Bilateral primary osteoarthritis of knee (principal) | CPT/HCPCS: 20610; J7323 ==

== ENCOUNTER 2024-09-05 12:59 | Outpatient (AMB) | payer MEDICAID, SELFPAY ==
--- NOTE | 2024-09-05 13:12 | A.OFFVIS_ITS ---
Intake Visit Reasons: INJ- B/L knee Euflexxa#2, RT shoulder pain Intake Note: Windy is a 48 year old female who presents today for a bilateral knee Euflexxa injections #2. Patient presents today with complaints of right shoulder pain. Allergies ciprofloxacin [From CIPRO] Allergy (Severe, Verified 09/05/24 13:15) GI PAIN vancomycin Allergy (Severe, Verified 09/05/24 13:15) Anaphylaxis Medication List - Last Reconciled 09/05/24 by Juanita Hannon PA-C albuterol sulfate 2.5 mg inhalation QID PRN albuterol sulfate 90 mcg/actuation (ProAir HFA) 2 puffs inhalation Q6H PRN dklqhcqfam-kzaghdyzmtxvl-tmzl 50-325-40 mg 1 tab PO Q4H clonazepam 0.5 mg PO DAILY PRN cyclobenzaprine 10 mg PO TID PRN dicyclomine 20 mg PO TID fexofenadine (Amada Allergy) 180 mg PO DAILY fluconazole 150 mg PO Q3D PRN fluticasone propionate 110 mcg/actuation 110 mcg inhalation BID 30 days gabapentin mg PO 3XD levonorgestrel (Mirena) 20 mcg intrauterine DAILY montelukast 10 mg PO BEDTIME 30 days nabumetone 500 mg PO BID 30 days pantoprazole 40 mg PO DAILY propranolol 10 mg PO BID sertraline 75 mg PO DAILY tirzepatide (weight loss) (Zepbound) 2.5 mg subcut QWEEK ustekinumab (Stelara) 90 mg subcut Q8W zolpidem (Ambien) 10 mg PO BEDTIME HPI HPI INJ- B/L knee Euflexxa#2: Details: 48-year-old female returns to the office today for a new problem. She has an onset of right shoulder pain which has been worse with overhead reaching and lifting. Also has pain with sleeping. She is also here today for her 2nd injection of Euflexxa in both knees. [facility] Medical History COVID Somnolence, daytime TANA (obstructive sleep apnea) Allergic rhinitis Bronchial asthma Trigger finger Dysuria Obesity, morbid, BMI 40.0-49.9 Encounter for Papanicolaou smear for cervical cancer screening Asthma Insomnia Crohn's disease Surgical History History of removal of laparoscopic gastric banding device Hx of hand surgery History of carpal tunnel surgery Hx of laparoscopic gastric banding Hx of breast reduction, elective Family History Father HIV (human immunodeficiency virus infection) Mother Hypertension Maternal Grandmother Diabetes mellitus Maternal Grandfather Hypertension Lymphoma Paternal Grandfather No problems noted. 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 Tenderness along the medial and lateral joint line. Full ROM with crepitus. Negative Ivan?s. No ligamentous laxity. NVI. Right shoulder normal to inspection. Full range of motion in all planes. She has tenderness over the AC joint and pain with cross-body abduction. Negative Batres. 5/5 rotator cuff strength. Neurovascularly intact. Office Procedures AMB Joint Injection/Aspiration Joint Injection/Aspiration Details: #2 euflexxa bilat knee Primary Site: right knee Secondary Site: left knee Prep: site was prepped using aseptic technique, ethochloride spray was applied and injection warnings given Injected: in the joint Approach Used: anterolateral Procedure: The patient tolerated the procedure well Coding 34703 - Glenohumeral/Tronchanteric Bursa/Intraarticular Procedure code (CPT) selection complete Results Reviewed Results Reviewed: xrays of the right shoulder obtained 08/07/24 show ac joint oa Assessment & Plan Assessment & Plan (1) Osteoarthritis of right AC (acromioclavicular) joint: Code(s): M19.011 - Primary osteoarthritis, right shoulder Category: Medical Plan: We discussed options which include PT, NSAIDs and injections. She will defer on the injection today and proceed with PT and NSAIDs. If symptoms persist she will contact me for an injection which will be an AC joint injection under fluoroscopy at the hospital, otherwise, prn. (2) Osteoarthritis of left knee: Code(s): M17.12 - Unilateral primary osteoarthritis, left knee Category: Medical (3) Patellofemoral arthritis of right knee: Comment: Painful when she walks her treadmill. Is awaiting approval to try gel discussed considering exercise bike. Code(s): M17.11 - Unilateral primary osteoarthritis, right knee Category: Medical Plan Bilateral knees injected today with Euflexxa 1. She will rest and use ice and anti-inflammatories as needed and see me back in 1 week for injection #3 Orders: Orders 2 PT Evaluation and Treatment Today M19.011 - Primary osteoarthritis, right shoulder Medications: Changed From nabumetone 500 mg PO BID To nabumetone 500 mg PO BID 60 tabs 0RF 30 days Discontinued celecoxib (Celebrex) Discontinued Reason: No Longer Medically Relevant 200 mg PO BID 60 caps 3RF 30 days Coding Level of Care Code Est Pt Level 3 (08861) Complex EM visit Add On G2211 Diagnoses Osteoarthritis of right AC (acromioclavicular) joint M19.011 Osteoarthritis of left knee M17.12 Patellofemoral arthritis of right knee M17.11 CPT Codes Coding - Joint 7: 19940 - Glenohumeral/Tronchanteric Bursa/Intraarticular ([id number])
--- OUTSIDE RECORDS SUMMARY | 2024-09-05 13:17 | XMS_ITS | Clinical Summary ---
Author Organization 175 [facility] Address [address] [place] [address] Phone Care Team Providers Care Bilingual Administrative Assistant Name Role Phone Katrina Sherwood MD Primary Care Provider +1- [phone] Allergies Active Allergy Reactions Criticality Noted Date [...] Orthopedic Surgery [facility] [address] [address] Juan Moody DPM Lumbosacral radiculopathy (Primary Dx); [...] Orthopedic Surgery [facility] [address] [address] Juan Moody DPM [address] [address] Health Maintenance Due Date Last Done Comments [...] Moody DPM - 07/09/2024 8:30 AM EDT uJan Moody DPM ? 07/09/2024 ??7:26 PM Injection [...] * Cervical Cancer Screening: HPV (11/09/2021) Pathologist [facility] Cervical Cancer Screening: HPV abstracted Historical Provider HEALTH MAINTENANCE Final Result from Last 3 Months or Most Recently Relevant to Health Maintenance Insurance MEDICAID - [place] Care Teams Bilingual Administrative Assistant Relationship Specialty Start Date End Date Kaela, MD Katrina [address] [place] [phone] PCP - General Internal Medicine 01/02/14
--- OUTSIDE RECORDS SUMMARY | 2024-09-05 13:17 | XMS_ITS ---
Author Organization [facility] Address [address] [place] [address] Care Team Providers Care Food Service Tray Attendant Name Role Phone Reymundo WEEMS, Summer Primary Care Provider Unavailab Emerson Kothari [phone] REASON FOR VISIT Stelara Q 4 weeks Rx Encounters Encounter Location Date Provider Diagnosis [facility] [address] [facility] [address] [place] [address] 06/22/2024 Emerson Canales Plan Of Treatment Next Appt Details Provider Name:Emerson Canales , 01/09/2025 01:20:00 PM, [address] [facility], [address], [place], [address], Progress Notes * STEPHIE LLOYDDOB: 7 (48 yo F)Acc No.[id number]:06/22/2024 Patient:?STEPHIE LLOYD :1975???Age:48 Y???Sex:Female Address:[address] [place] [address] * true * Date:? Generated for [place] gema/Enmanuel/eTransmitting on:?09/05/2024 01:17 PM EDT
--- OUTSIDE RECORDS SUMMARY | 2024-09-05 13:17 | XMS_ITS | Encounter Summary ---
Author Organization [employer] Address [address] [place] [address] Care Team Providers Care Instruction Assistant Principal Name Role Phone Ceci Blilings MD Primary Care Provide r Reason for Visit * Reason Comments Med Refill Encounter Details Date Type Department Care Team (Late st Contact Info) Description 07/18/2024 Refill [facility] [address] [place] [address] Ceci Billings MD [address] [place] [address] Social History Tobacco Use Types Packs/Day Years [...] 09/07/2024 9:00 AM EDT Office Visit [facility] [address] [place] [address] Ceci Billings MD [address] [place] [address] documented as of this encounter Visit Diagnoses Not on filedocumented in this encounter Additional Health Concerns Assessment Noted Time PHQ-9 Depression Total Score: 0 10/05/19 24 9:33 AM EDT documented as of this encounter Care Teams Instruction Assistant Principal Relationship Specialty Start Date End Date Ceci Billings MD [address] [place] [phone] PCP - General Family Medicine 06/02/20 documented as of this encounter
--- OUTSIDE RECORDS SUMMARY | 2024-09-05 13:17 | XMS_ITS | Encounter Summary ---
Author Organization [employer] Address [address] [place] [address] Care Team Providers Care Production Quality Analyst Name Role Phone Ceci Billings MD Primary Care Provide r Encounter Details Date Type Department Care Team (Late st Contact Info) Description 08/15/2024 Orders Only [facility] [address] [place] [address] Provider, MD Chito Social History Tobacco Use [...] Description 09/07/2024 9:00 AM EDT Office Visit [facility] [address] [place] [address] Ceci Billings MD [address] [place] [address] documented as of this encounter Procedures Procedure Name Priority Date/Time Associated Diagnosis Comments HM PAP/HPV Routine 07/03/2024 11:57 AM EDT documented in this encounter Results * HM PAP/HPV (07/03/2024 11:57 AM EDT) Historical Provider HEALTH MAINTENANCE Final Result documented in this encounter Visit Diagnoses Not on filedocumented in this encounter Additional Health Concerns Assessment Noted Time PHQ-9 Depression Total Score: 0 10/05/19 24 9:33 AM EDT documented as of this encounter Care Teams Production Quality Analyst Relationship Specialty Start Date End Date Ceci Billings MD [address] [place] [phone] PCP - General Family Medicine 06/02/20 documented as of this encounter
--- OUTSIDE RECORDS SUMMARY | 2024-09-05 13:18 | XMS_ITS | Encounter Summary ---
Author Organization [employer] Address [address] [place] [address] Care Team Providers Care Surgical Appliances Salesperson Name Role Phone Ceci Billings MD Primary Care Provide r Reason for Visit * Reason Comments Med Refill Encounter Details Date Type Department Care Team (Late st Contact Info) Description 01/03/2024 Refill [facility] [address] [place] [address] Ceci Billings MD [address] [place] [address] Social History Tobacco Use Types Packs/Day Years [...] Description 09/07/2024 9:00 AM EDT Office Visit [facility] [address] [place] [address] Ceci Billings MD [address] [place] [address] documented as of this encounter Visit Diagnoses Not on filedocumented in this encounter Additional Health Concerns Assessment Noted Time PHQ-9 Depression Total Score: 0 10/05/19 24 9:33 AM EDT documented as of this encounter Care Teams Surgical Appliances Salesperson Relationship Specialty Start Date End Date eCci Billings MD [address] [place] [phone] PCP - General Family Medicine 06/02/20 documented as of this encounter
--- OUTSIDE RECORDS SUMMARY | 2024-09-05 13:18 | XMS_ITS | Encounter Summary ---
Author Organization [employer] Address [address] [place] [address] Care Team Providers Care Engineering Geologist Name Role Phone Ceci Billings MD Primary Care Provide r Reason for Visit * Reason Comments Med Refill Encounter Details Date Type Department Care Team (Late Contact Info) Description 04/30/2022 Refill [facility] [address] [place] [address] Jesús Vale MD [address] [place] [address] Influenza-like illness Social History Tobacco Use Types [...] Description 09/07/2024 9:00 AM EDT Office Visit [facility] [address] [place] [address] Ceci Billings MD [address] [place] [address] documented as of this encounter Visit Diagnoses Diagnosis Influenza-like illness documented in this encounter Care Teams Engineering Geologist Relationship Specialty Start Date End Date Ceci Billings MD [address] [place] [id number] PCP - General Family Medicine 06/02/20 documented as of this encounter
--- OUTSIDE RECORDS SUMMARY | 2024-09-05 13:18 | XMS_ITS | Encounter Summary ---
Author Organization [employer] Address [address] [place] [address] Care Team Providers Care Plodding Operator Name Role Phone Ceci Billings MD Primary Care Provide r Encounter Details Date Type Department Care Team (Late st Contact Info) Description 07/03/2024 Orders Only [facility] [address] [place] [address] Provider, MD Chito Social History Tobacco Use [...] Description 09/07/2024 9:00 AM EDT Office Visit [facility] [address] [place] [address] Ceci Billings MD [address] [place] [address] documented as of this encounter Procedures Procedure [...] EDT Narrative 07/20/2024 4:18 PM EDT ? [facility] ? [address] ?[place] [address] ?[phone] ? Mammography Report ? Signed ? Patient: Windy Mcfarlane ?MR# ?? : [id number] ? : 1975 ?Acct:[id number] ? Age/Sex: 48 / F ?ADM Date: 07/12/24 ? Loc: HO.MAMMO ? Attending Dr: Ceci Peacock MD ? Ordering Physician: Ceci Billings MD ?Results: ?? 2Benign Findings ? Date of Service: 07/12/24 ?Follow Up: 1 Year From Orig ?? inal Mammogram ? Procedure(s): MM tomosynthesis screening BI ?? Accession Number(s): [id number] ? cc: Ceci Billings MD ? EXAMINATION: [...] DD/ 1345 ? TD/TT: 07/12/24 1401 ? Lottery Sales Clerk: ? Procedure Note [place], Image - [facility] [address] [place] [address] Mammography Report Signed Patient: Windy McfarlaneMR# : [id number] : 1975Acct:[id number] Age/Sex: 48 / FADM Date: 07/12/24 Loc: HO.MAMMO Attending Dr: Ceci Peacock MD Ordering Physician: Ceci Billings MDResults: 2Benign Findings Date of Service: 07/12/24Follow Up: 1 Year From Orig inal Mammogram Procedure(s): MM tomosynthesis screening BI Accession Number(s): [id number] cc: Ceci Billings MD EXAMINATION: MM SCREENING [...] 07/20/24 1614 DD/ 1345 TD/TT: 07/12/24 1401 Lottery Sales Clerk: us Ceci Peacock MD IMG BI PROCEDURES Fin al Result * Bacterial Vaginosis (07/03/2024 12:00 AM EDT) TRICHOMONAS VAGINALIS DETECTION BY PCR NOT DETECTED Not Detect [facility] BACTERIAL VAGINOSIS DETECTION BY PCR NEGATIVE Negative [facility] Comment:The BV organism [...] DETECTION BY PCR NOT DETECTED Not Detect [facility] Jeni glab krusei PCR NOT DETECTED Not Detect [facility] 07/03/2024 07/03/2024 us Generic External Data Provider LAB MICROBIOLOGY - GENERAL ORDERABLES Final Result [facility] [address] [place] [address] [phone] * Chlamydia/N. Gonorrhoeae RNA, TMA, Urogenitial (07/03/2024 12:00 AM EDT) CT PCR NOT DETECTED Not Detect. [facility] Comment:A not detected [...] psychologicalconsequences. NG PCR NOT DETECTED Not Detect. [facility] Comment:A not detected [...] medical, social or psychologicalconsequences. 07/03/2024 07/03/2024 Narrative [facility] - 07/04/2024 5:16 AM EDT Vaginal us Generic External Data Provider LAB MICROBIOLOGY - GENERAL ORDERABLES Final Result [facility] [address] [place] [address] [phone] * Hm Colonoscopy (08/23/2023 11:53 AM EDT) us Historical Provider HEALTH MAINTENANCE Final Result documented in this encounter Visit Diagnoses Not on filedocumented in this encounter Additional Health Concerns Assessment Noted Time PHQ-9 Depression Total Score: 0 10/05/19 24 9:33 AM EDT documented as of this encounter Care Teams Plodding Operator Relationship Specialty Start Date End Date Ceci Billings MD [address] [place] [address] PCP - General Family Medicine 06/02/20 documented as of this encounter
--- OUTSIDE RECORDS SUMMARY | 2024-09-05 13:18 | XMS_ITS | Encounter Summary ---
Author Organization [employer] Address [address] [place] [address] [address] [place] [address] Care Team Providers Care Mental Hygiene Consultant Name Role Phone Ceci Billings MD Primary Care Provide r Reason for Visit * Reason Comments Med Refill Encounter Details Date Type Department Care Team (Late Contact Info) Description 12/02/2022 Refill [facility] [address] [place] [address] Yaniv Pelaez MD [address] [place] [address] Insomnia, unspecified type Social History Tobacco Use [...] Description 09/07/2024 9:00 AM EDT Office Visit [facility] [address] [place] [address] Ceci Billings MD [address] [place] [address] documented as of this encounter Visit Diagnoses Diagnosis Insomnia, unspecified type documented in this encounter Additional Health Concerns Assessment Noted Time PHQ-9 Depression Total Score: 0 08/07/19 23 9:07 AM EDT documented as of this encounter Care Teams Mental Hygiene Consultant Relationship Specialty Start Date End Date Ceci Billings MD [address] [place] [address] PCP - General Family Medicine 06/02/20 documented as of this encounter
--- OUTSIDE RECORDS SUMMARY | 2024-09-05 13:18 | XMS_ITS | Clinical Summary ---
Author Organization [email or web address] Address [address] [facility] [address] [place] [address] Care Team [facility]iders [facility] Director Name Role Phone Ceci Billings MD Primary Care Provide r Allergies Active Allergy Reactions Criticality Noted Date Comments Ciprofloxacin 05/26/2010 Other reaction(s): GI upset Other reaction(s): Unknown Clindamycin 10/04/2023 Vancomycin 05/26/2010 Other reaction(s): unspecified Other reaction(s): Unknown Medications fluticasone (Flonase Allergy Relief) 50 MCG/ACT nasal sprayIndication s:Influenza-lik e illness Administer 1 spray into each nostril in the morning. Shake gently. Before first use, prime pump. After use, clean tip and replace cap. 16 g 12 03/30/20 23 Active triamcinolone (Kenalog) 0.1 % creamIndication s:Contact dermatitis, unspecified contact dermatitis type, unspecified trigger Apply topically if needed in the morning and at bedtime (pain and swelling). 30 g 04/26/19 24 Active fluticasone (Flovent) 110 MCG/ACT inhalerIndicati ons:Mild persistent asthma without complication Inhale 1 puff in the morning and at bedtime. Rinse mouth with water after use to reduce aftertaste and incidence of candidiasis. Do not swallow. 12 g 11 10/05/19 24 025 Active docusate sodium (Colace) 100 MG capsuleIndicati ons:Crohn's disease of both small and large intestine without complication (CMS/HCC) Take 1 capsule (100 mg) by mouth 2 times daily. 180 capsule 10/31/19 24 Active albuterol (Ventolin HFA) 108 (90 Base) MCG/ACT inhalerIndicati ons:Mild persistent asthma without complication INHALE 2 PUFFS BY MOUTH THREE TIMES DAILY NEEDED 18 g 3 03/07/20 24 Active Tirzepatide-Mack ght Management (Zepbound) 2.5 MG/0.5ML solution auto-injectorIn dications:Class 3 severe obesity with serious comorbidity and body mass index (BMI) of 45.0 to 49.9 in adult, unspecified obesity type Inject 0.5 mL (2.5 mg) under the skin 1 (one) time per week. 2 mL 04/24/20 24 Active zolpidem (Ambien) 10 MG tabletIndicatio ns:Insomnia, unspecified type TAKE 1 TABLET BY MOUTH AT BEDTIME 30 tablet 5 04/24/20 24 Active famotidine (Pepcid) 20 MG tabletIndicatio ns:Heartburn Take 1 tablet (20 mg) by mouth 2 times daily. 60 tablet 11 04/24/20 24 025 Active propranolol (Inderal) 20 MG tabletIndicatio ns:Migraine without aura, not refractory TAKE 1 TABLET(20 MG) BY MOUTH EVERY DAY 90 tablet 1 04/24/20 24 Active butalbital-acet aminophen-caffe ine 50-325-40 MG tabletIndicatio ns:Migraine without aura, not refractory Take 1 tablet by mouth every 12 (twelve) hours if needed for migraine (max two days per week). 15 tablet 2 04/24/20 24 Active ondansetron (Zofran) 4 MG tabletIndicatio ns:Migraine without aura, not refractory Take 1 tablet (4 mg) by mouth every 8 (eight) hours if needed for nausea or vomiting. 20 tablet 04/24/20 24 Active fexofenadine (Allergy Relief) 180 MG tablet TAKE 1 TABLET BY MOUTH EVERY DAY NEEDED 90 tablet 05/23/19 25 Active senna (Senokot) 8.6 MG tabletIndicatio ns:Crohn's disease of both small and large intestine without complication (CMS/HCC) TAKE 2 TABLETS BY MOUTH TWICE DAILY 360 tablet 06/12/19 25 Active acetaminophen (Tylenol 8 Hour) 650 MG ER tabletIndicatio ns:Lumbar radiculopathy, chronic TAKE 2 TABLETS(1300 MG) BY MOUTH EVERY 8 HOURS NEEDED FOR MILD PAIN. DO NOT CRUSH, CHEW, OR SPLIT 40 tablet 06/29/19 25 Active dicyclomine (Bentyl) 20 MG tabletIndicatio ns:Crohn's disease of both small and large intestine without complication (CMS/HCC) TAKE 1 TABLET BY MOUTH IF NEEDED IN THE MORNING, AT NOON, AND AT BEDTIME 90 tablet 1 06/29/19 25 Active Tirzepatide-Mack ght Management (Zepbound) 5 MG/0.5ML solution auto-injectorIn dications:Class 3 severe obesity with serious comorbidity and body mass index (BMI) of 45.0 to 49.9 in adult, unspecified obesity type Inject 0.5 mL (5 mg) under the skin 1 (one) time per week. 2 mL 07/03/19 25 Active bisacodyl (Dulcolax) 5 MG EC tabletIndicatio ns:Other constipation Take 1 tablet (5 mg) by mouth if needed each day for constipation. Do not crush, chew, or split. 30 tablet 1 07/25/19 25 025 Active Tirzepatide-Mack ght Management (Zepbound) 7.5 MG/0.5ML solution auto-injectorIn dications:Class 3 severe obesity with serious comorbidity and body mass index (BMI) of 45.0 to 49.9 in adult, unspecified obesity type Inject 0.5 mL (7.5 mg) under the skin 1 (one) time per week. 2 mL 07/25/19 25 Active lidocaine (Lidoderm) 5 % patch Apply 1 patch topically Once per day. Remove & discard patch within 12 hours or as directed by . 30 patch 08/08/19 25 025 Active gabapentin (Neurontin) 400 MG capsuleIndicati ons:Neuropathy TAKE 1 CAPSULE(400 MG) BY MOUTH THREE TIMES DAILY 90 capsule 3 08/17/19 25 Active Tirzepatide-Mack ght Management (Zepbound) 10 MG/0.5ML solution auto-injectorIn dications:Class 3 severe obesity with serious comorbidity and body mass index (BMI) of 45.0 to 49.9 in adult, unspecified obesity type Inject 0.5 mL (10 mg) under the skin 1 (one) time per week. 2 mL 1 08/23/19 25 Active ibuprofen 800 MG tablet Take 1 tablet (800 mg) by mouth every 8 (eight) hours if needed for mild pain, moderate pain, fever or headaches. 45 tablet 1 03/30/20 23 025 Discontinued(I neffective) gabapentin (Neurontin) 400 MG capsuleIndicati ons:Neuropathy Take 1 capsule (400 mg) by mouth 3 times daily. 90 capsule 3 04/24/20 24 025 Discontinued methocarbamol (Robaxin) 750 MG tabletIndicatio ns:Fibromyalgia Take 1 tablet (750 mg) by mouth 4 times daily. 40 tablet 2 06/07/19 25 025 Discontinued(I neffective) nabumetone (Relafen) 500 MG tablet Take 1 tablet (500 mg) by mouth 2 times daily for 10 days. 20 tablet 08/08/19 25 025 Active Problems Problem Noted Date Diagnosed Date [...] Encounters Date Type Department Care Team Description 08/30/2024 Patient Outreach [facility] [address] [place] [address] [phone] Ceci Billings MD Pre-visit Planning (SDOH screening completed on 05/25/2024) 08/22/2024 Refill [facility] [address] [place] [address] [phone] Ceci Billings MD Class 3 severe obesity with serious comorbidity and body mass index (BMI) of 45.0 to 49.9 in adult, unspecified obesity type 08/15/2024 Refill [facility] [address] [place] [address] Ceci Billings MD Neuropathy 08/15/2024 Orders Only [facility] [address], [place] [phone] Chito Magana MD 08/08/2024 Telephone [facility] [address] [place] [address] [phone] Ceci Billings MD Results 08/07/2024 2:20 PM EDT Office Visit [facility] [address] [place] [address] [phone] Yaniv Pelaez MD Chronic right shoulder pain (Primary Dx) 07/24/2024 11:30 AM EDT Telemedicine [facility] [address] [place] [address] [phone] Ceci Billings MD Other constipation (Primary Dx); Class 3 severe obesity with serious comorbidity and body mass index (BMI) of 45.0 to 49.9 in adult, unspecified obesity type; Metrorrhagia; Fibromyalgia 07/24/2024 Travel 07/23/2024 Telephone [facility] [address] [place] [address] [phone] Ceci Billings MD CHART PREP 07/18/2024 Refill [facility] [address] [place] [address] [phone] Ceci Billings MD 07/06/2024 Population Health Risk Score [facility] ([facility] Department [address] [place] [address] [phone] Provider, Population Health Generic 07/03/2024 Orders Only [facility] [address] [place] [address] ProviderChito MD 07/02/2024 Refill [facility] [address] [place] [address] Ceci Billings MD Class 3 severe obesity with serious comorbidity and body mass index (BMI) of 45.0 to 49.9 in adult, unspecified obesity type ([facility]) 06/27/2024 Refill [facility] [address] [place] [address] Ceci Billings MD Lumbar radiculopathy, chronic; Crohn's disease of both small and large intestine without complication ([facility]) 06/22/2024 Refill [facility] [address] [place] [address] Ceci Billings MD Migraine without aura, not refractory 06/11/2024 Refill [facility] [address] [place] [address] Ceci Billings MD Crohn's disease of both small and large intestine without complication ([facility]) from Last 3 Months Immunizations Immunization Administration Dates Next Due Hep B, adult [...] your housing situation today? I have terrell momo 02/07/[address] you li [...] Description 09/07/2024 9:00 AM EDT Office Visit [facility] [address] [place] [address] Ceci Billings MD [address] [place], [place] [phone] Health Maintenance Due Date Last Done Comments CT Colonography 1975 FIT DNA/Cologuard 1975 FIT 1975 FOBT 1975 HIV Screening 1975 Sigmoidoscopy 1975 Alcohol/Substance Use Screening 1988 Family Planning (PISQ) 09/12/1991 Hepatitis C Screening 1994 COVID-19 Vaccine ( season) 2023 08/19/2020, 07/11/2020 Influenza Vaccine (#1) 2023 , 05/07/2021, 12/24/2020, Additional history exists Depression Screening 10/04/2024 10/05/2023, 10/05/19 SDOH Screening 05/25/2025 05/25/2024 Tobacco Screening 06/07/2025 06/07/2024 Mammogram 07/12/2025 07/12/2024, 03/25, 04/04/2023, Additional history exists Zoster Vaccines (1 of 2) 2026 Cervical Cancer Screening 07/03/2029 HPV/Cotest 07/03/2029 11/09/2021, 10/23, 05/26/2020, Additional history exists Pap Smear 07/03/2029 07/03/2024 Lipid Panel 08/07/2029 08/07/2024, 08/06/2022 DTaP/Tdap/Td Vaccines (3 - Td or [...] to 49.9 in adult, unspecified obesity type TSH W/REFLEX TO FT4 Routine 08/07/2024 2 :25 PM EDT Class 3 severe obesity with serious comorbidity and body mass index (BMI) of 45.0 to 49.9 in adult, unspecified obesity type Metrorrhagia VITAMIN D,25-OH,TOTAL,IA Routine 08/07/2024 2:25 PM EDT Class 3 severe obesity with serious comorbidity and body mass index (BMI) of 45.0 to 49.9 in adult, unspecified obesity type LIPID PANEL, STANDARD Routine 08/07/2024 2:25 PM EDT Class 3 severe obesity with serious comorbidity and body mass index (BMI) of 45.0 to 49.9 in adult, unspecified obesity type CBC WITH AUTO DIFFERENTIAL Routine 08/07/2024 2:25 PM EDT Metrorrhagia COMPREHENSIVE METABOLIC PANEL Routine 08/07/2024 2:25 PM EDT Class 3 severe obesity with serious comorbidity and body mass index (BMI) of 45.0 to 49.9 in adult, unspecified obesity type XR SHOULDER 2+ VIEWS RIGHT Routine 08/07/2024 2:14 PM EDT Chronic right shoulder pain BI MAMMOGRAM SCREENING TOMOSYNTHESIS BILATERAL Routine 07/12/2024 1:45 PM EDT HM PAP/HPV Routine 07/03/2024 11:57 AM EDT BACTERIAL VAGINOSIS PANEL Routine 07/03/2024 12:00 AM EDT CHLAMYDIA/N. GONORRHOEAE RNA, TMA, UROGENITAL Routine 07/03/2024 12:00 AM EDT COLONOSCOPY Routine 08/23/2023 11:53 AM EDT ZZZ HISTORICAL HPV E6/E7 RFLX JESSICA 16 18/45 Routine 11/09/2021 2:40 PM EDT from Last 3 Months or Most Recently Relevant to Health Maintenance Results * (ABNORMAL) Vitamin D, 25-Hydroxy, Total, Immunoassay (08/07/2024 2:25 PM EDT) Vitamin D 25-OH Total 21.1(L) >30 ng/mL [facility] Comment: Health Based Reference Values*< 20 ??ng/mL ??Fctkazcyz50-11 ng/mL ??Insufficient> 30 ??ng/mL ??Sufficient*Kailey YANEZ. N Engl J Med. 2007;357:266-280There is no well-established upper level of normal vitamin Dlevels. Some laboratories use 50 ng/mL as an upper limit ofnormal. However, toxicity is patient-dependent and may occurat any level. Careful correlation with the patient'spresentation is necessary and, if there is concern forvitamin D toxicity, treatment should be consideredirrespective of the serum level.Care must be taken in interpreting Vitamin D results fromdifferent laboratories and methodologies. ??Published datademonstrated that results from patients undergoinghemodialysis may show a negative bias when tested withvarious automated 25-OH vitamin D assays when compared toLC- MS/MS.When testing samples from patients whose predominant form ofVitamin D is Vitamin D2, such as patients receiving VitaminD2 supplementation, results that are subtherapeutic shouldbe confirmed with another method such as LC-MS/MS. Blood Venous blood specimen / Unknown 08/07/2024 2:25 PM EDT 08/07/2024 4:10 PM EDT us Ceci Peacock MD LAB BLOOD ORDERABLES Final Result Performing Organization Address [facility] Co de Phone Number [facility] [address] [place] [address] [phone] * TSH W/Reflex to FT4 (08/07/2024 2:25 PM EDT) Pathologist [facility] TSH reflex Free T4 1.38 0.32 - 4.0 uIU/mL [facility] Blood Venous blood specimen / Unknown 08/07/2024 2:25 PM EDT 08/07/2024 4:10 PM EDT us Ceci Peacock MD LAB BLOOD ORDERABLES Final Result Performing Organization Address [facility] Co de Phone Number [facility] [address] [place] [address] [phone] * (ABNORMAL) CBC auto differential (08/07/2024 2:25 PM EDT) White Blood Count 4.1(L) 4.8 - 10.8 X10*3/uL [facility] Red Blood Count 4.61 4.20 - 5.50 X10*6/uL [facility] Hemoglobin 12.5 12.0 - 16.0 g/dl [facility] Hematocrit 39.7 37.0 - 47.0 % [facility] Mean Corpuscular Volume 86.1 80.0 - 98.0 fL [facility] Mean Corpuscular Hemoglobin 27.1 27.0 - 33.0 pg [facility] Mean Corpuscular HGB Conc 31.5 31.0 - 35.0 g/dl [facility] Red Cell Distribution Width 13.6 11.0 - 16.0 % [facility] Platelet Count 219 160 - 400 X10*3/uL [facility] Mean Platelet Volume 11.0 9.4 - 12.3 fL [facility] Neutrophils Percent Auto 56.8 45 - 73 % [facility] Imm Gran Pct Auto 0.2 0.0 - 0.4 % [facility] Lymphocytes Percent Auto 31.1 20 - 40 % [facility] Monocytes Percent Auto 9.7 2 - 11 % [facility] Eosinophils Percent Auto 1.5 0 - 4 % [facility] Basophils Percent Auto 0.7 0 - 2 % [facility] NRBC Pct Auto 0.0 0.0 - 0.2 /100WBC [facility] Neutrophils Absolute Auto 2.3 2.0 - 8.3 x10*3/uL [facility] Imm Gran Abs Auto 0.01 0.00 - 0.03 X10*3/uL [facility] Lymphocytes Absolute Auto 1.3 1.2 - 4.9 X10*3/uL [facility] Monocytes Absolute Auto 0.4 0.1 - 1.2 X10*3/uL [facility] Eosinophils Absolute Auto 0.1 0.0 - 0.4 X10*3/uL [facility] Basophils Absolute Auto 0.0 0.0 - 0.2 X10*3/uL [facility] NRBC Abs Auto 0.000 0.0 - 0.012 X10*3/uL [facility] Blood Venous blood specimen / Unknown 08/07/2024 2:25 PM EDT 08/07/2024 4:10 PM EDT us Ceci Peacock MD LAB BLOOD ORDERABLES Final Result Performing Organization Address [facility] Phone Number [facility] [address] [place] [address] [phone] * Hemoglobin A1c (08/07/2024 2:25 PM EDT) Hemoglobin A1c 5.1 <6.0 % [facility] Comment:Hemoglobin A1C Refer ence Range Adults: 4.8 - 6.0 % Non diabetic: < 6.0 % Goal: < 7.0 %Additional Action Suggested: > 8.0 %Note: Hemoglobin A1c results are invalid for patients with abnormal amounts of HbF. Blood transfusions may impact the HbA1c concentration in the patient sample. Estimated Average Glucose 100 mg/dL [facility] Comment:eAG = Estimated ave rage glucose which is %A1C expressed asaverage glucose, using the formula of the B1J-SfywnhgKakxmec Glucose study (ADAG), Diabetes Care, Vol.31,#8,2007 Blood Venous blood specimen / Unknown 08/07/2024 2:25 PM EDT 08/07/2024 4:10 PM EDT us Ceci Peacock MD LAB BLOOD ORDERABLES Final Result Performing Organization Address [facility] Co de Phone Number [facility] [address] [place] [address] [phone] * Lipid Panel, Standard (08/07/2024 2:25 PM EDT) Triglycerides 63 <150 mg/dL [facility] Comment:Desirable Triglyceri de: less than 150 mg/dLBorderline High Triglyceride 150-199 mg/dLHigh Triglyceride: 200-499 mg/dLVery High Triglyceride: greater than or equal to 5OO mg/dL Cholesterol 154 <200 mg/dL [facility] Comment:Desirable Cholestero l: less than 200 mg/dLBorderline High Cholesterol: 200-239 mg/dLHigh Cholesterol: greater than 239 mg/dL LDL Cholesterol Calculated 92 <100 mg/dL [facility] Comment:Desirable LDL: less than 100 mg/dLNear Optimal/Above Optimal LDL: 110- 129 mg/dLBorderline High LDL: 130-159 mg/dLHigh LDL: 160-189 mg/dLVery High LDL: greater than or equal to 190 mg/dL HDL Cholesterol 50 >40 mg/dL [facility] Comment:Desirable HDL: great er than 40 mg/dL Note: This HDL assay may give artificially low results in patients with liver disease. Blood Venous blood specimen / Unknown 08/07/2024 2:25 PM EDT 08/07/2024 4:10 PM EDT Ceci Peacock MD LAB BLOOD ORDERABLES Final Result [facility] [address] [place] [address] [phone] * (ABNORMAL) Comprehensive Metabolic Panel (08/07/2024 2:25 PM EDT) Sodium 141 135 - 145 mmol/L [facility] Potassium 3.8 3.3 - 5.1 mmol/L [facility] Chloride 108 96 - 108 mmol/L [facility] Carbon Dioxide 26 22 - 29 mmol/L [facility] Anion Gap 11(L) 12 - 20 [facility] Urea Nitrogen (BUN) 12 9 - 16 mg/dL [facility] Creatinine, Serum 0.79 0.5 - 1.4 mg/dL [facility] Estimated Glomerular Filt Rate >60 [facility] Comment:Chronic Kidney Disea se: Estimated GFR < 60 mL/min/1.86s9Ihmuib Kidney Disease: Estimated GFR < 15 mL/min/1.73m2 Glucose 86 60 - 115 mg/dL [facility] Calcium 8.6 8.4 - 10.2 mg/dL [facility] Bilirubin, Total 0.2 0.0 - 1.0 mg/dL [facility] Aspartate Amino Transferase 17 5 - 31 U/L [facility] Alanine Aminotransferase 12 0 - 31 U/L [facility] Total Protein 6.7 6.5 - 8.0 g/dL [facility] Albumin Level 3.5 3.5 - 5.0 g/dL [facility] Alkaline Phosphatase 51 39 - 117 U/L [facility] Blood Venous blood specimen / Unknown 08/07/2024 2:25 PM EDT 08/07/2024 4:10 PM EDT us Ceci Peacock MD LAB BLOOD ORDERABLES Final Result [facility] [address] [place] [phone] * XR Shoulder 2+ Views Right (08/07/2024 2:14 PM EDT) Anatomical Region Laterality Modality Upper Extremities, Shoulder Right Radi ographic Imaging 08/07/2024 2:14 PM EDT Narrative 08/07/2024 2:38 PM EDT ?[facility] ?[address] ?[place] [address] ?XRay Report ? Signed ? Patient: Windy Mcfarlane ?MR# ?? : [id number] ? : 1975 ?Acct:[id number] ? Age/Sex: 48 / F ?ADM Date: 08/07/24 ? Loc: HO.HHCX ? Attending : Yaniv Pelaez MD ? Ordering Physician: Name,Yaniv MANCINI ?? Date of Service: 08/07/24 ?? Procedure(s): XR shoulder RT min 2V ?? Accession Number(s): [id number] ? cc: Name,Yaniv MANCINI ? EXAMINATION: ?? [...] DD/ 1414 ? TD/TT: 08/07/24 1430 ? [employer] Lender: ? Procedure Note Donotleeinterpreter, Image - 08/07/[address] [address] XRay Report Signed Patient: Windy McfarlaneMR# : [id number] : 1975Acct:[id number] Age/Sex: 48 / FADM Date: 08/07/24 Loc: HO.HHCX Attending Dr: Yaniv Pelaez MD Ordering Physician: Yaniv Pelaez MD Date of Service: 08/07/24 Procedure(s): XR shoulder RT min 2V Accession Number(s): [id number] cc: Yaniv Pelaez MD EXAMINATION: XR SHOULDER, [...] 08/07/24 1435 DD/ 1414 TD/TT: 08/07/24 1430 [employer] Lender: us Catesas Latanya MANCINI IMG XR PROCEDURES Final Result * BI Mammogram Screening Tomosynthesis Bilateral (07/12/2024 1:45 PM EDT) Anatomical Region Laterality Modality Breast Bilateral Mammography 07/12/2024 1:45 PM EDT Narrative 07/20/2024 4:18 PM EDT ? [facility] ? [address] ?[place], [place] [address] ?[phone] ? Mammography Report ? Signed ? Patient: Windy Mcfarlane ?MR# ?? : [id number] ? : 1975 ?Acct:[id number] ? Age/Sex: 48 / F ?ADM Date: 07/12/24 ? Loc: HO.MAMMO ? Attending Dr: Ceci Peacock MD ? Ordering Physician: Ceci Billings MD ?Results: ?? 2Benign Findings ? Date of Service: 07/12/24 ?Follow Up: 1 Year From Orig ?? inal Mammogram ? Procedure(s): MM tomosynthesis screening BI ?? Accession Number(s): [id number] ? cc: Ceci Billings MD ? EXAMINATION: [...] DD/ 1345 ? TD/TT: 07/12/24 1401 ? Commercial [employer] Lender: ? Procedure Note Isidra, Image - 07/20/2024 [facility] [address] [place] [address] [place] [address] Mammography Report Signed Patient: Rubén McfarlaneraissaMR# : [id number] : 1975Acct:[id number] Age/Sex: 48 / FADM Date: 07/12/24 Loc: HO.MAMMO Attending Dr: Ceci Peacock MD Ordering Physician: Ceci Billingsesults: 2Benign Findings Date of Service: 07/12/24Follow Up: 1 Year From Orig inal Mammogram Procedure(s): MM tomosynthesis screening BI Accession Number(s): [id number] cc: Ceci Billings MD EXAMINATION: MM SCREENING [...] 07/20/24 1614 DD/ 1345 TD/TT: 07/12/24 1401 [employer]: Ceci Peacock MD IMG BI PROCEDURES Fin al Result * HM PAP/HPV (07/03/2024 11:57 AM EDT) Historical Provider HEALTH MAINTENANCE Final Result * Bacterial Vaginosis (07/03/2024 12:00 AM EDT) TRICHOMONAS VAGINALIS DETECTION BY PCR NOT DETECTED Not Detect [facility] BACTERIAL VAGINOSIS DETECTION BY PCR NEGATIVE Negative [facility] Comment:The BV organism targ ets [...] DETECTION BY PCR NOT DETECTED Not Detect [facility] Jeni glab krusei PCR NOT DETECTED Not Detect [facility] 07/03/2024 07/03/2024 us Generic External Data Provider LAB MICROBIOLOGY - GENERAL ORDERABLES Final Result [facility] [address] [place] [phone] * Chlamydia/N. Gonorrhoeae RNA, TMA, Urogenitial (07/03/2024 12:00 AM EDT) CT PCR NOT DETECTED Not Detect. [facility] Comment:A not detected test result [...] psychologicalconsequences. NG PCR NOT DETECTED Not Detect. [facility] Comment:A not detected test result [...] medical, social or psychologicalconsequences. 07/03/2024 07/03/2024 Narrative [facility] - 07/04/2024 5:16 AM EDT Vaginal Generic External Data Provider LAB MICROBIOLOGY - GENERAL ORDERABLES Final Result Performing Organization Address City/[facility]/ZIP Co de Phone Number [facility] [address] [place] [phone] * Hm Colonoscopy (08/23/2023 11:53 AM EDT) Historical Provider HEALTH MAINTENANCE Final Result * HPV E6/E7 RFLX JESSICA 16 18/45 (11/09/2021 2:40 PM EDT) HPV mRNA E6/E7 rflx Not Detected Not Detected [facility] Comment: Methodology: Assistant Spa Manager-Mediated Amplification This assay detects E6/E7 viral messenger RNA (mRNA) from 14 high-risk HPV types (16,18,31,33,35,39,45,51,52,56,58,59,66,68). Cervical sources are required for HPV testing. If a vaginal source from a patient who has had a total hysterectomy with removal of cervix was submitted, please contact the testing laboratory for alternative testing options. For additional information, please refer to [email or web address] (This link if provided for information/ educational purposes only.) THIS TEST WAS PERFORMED AT: [employer] [address] [place] [address] [address] [place], [place] ??[address] TIN DICKEY MD 11/09/2021 2:40 PM EDT [place] HISTORICAL/NON ORDERABLE LABS Fi nal Result [facility] [address] from Last 3 Months or Most Recently Relevant to Health Maintenance Insurance [facility] C3 HSN FULL Care Teams Medical Center Director Relationship Specialty Start Date End Date Ceci Billings MD [address] [place] [address] PCP - General Family Medicine 06/02/20
--- OUTSIDE RECORDS SUMMARY | 2024-09-05 13:18 | XMS_ITS | Patient Health Record ---
Author Organization [facility] Address [address] [place] [address] Care Team Providers Care Branch Coordinator Name Role Phone Reymundo WEEMS, Summer Primary Care Provider Emerson Sauceda [phone] Allergies Allergen (clinical drug ingredient) Drug/Non Drug Allergy documented on EMR Reaction Allergy Type Onset Date Status vancomycin Vancomycin HCl Unknown Drug Allergy A ctive ciprofloxacin cipro (uncoded) Unknown Allergy Active Results Component Value Reference Range Notes Complete Blood Count Auto Di ff Reviewed date:04/09/2024 10:38:42 PM Interpretation: Performing Lab:[facility], [address] [place] [address] Notes/Report: White Blood Count 5.2 4.8-10.8 X10*3/uL [...] Panel Reviewed date:04/04/2024 01:40:57 PM Interpretation: Performing Lab:[address] [address] Notes/Report: Bilirubin Total 0.2 0.0-1.0 mg/dL Bilirubin Direct < 0.2 0.0-0.5 mg/dL Aspartate Amino Transferase 22 5-31 U/L Alanine Aminotransferase 34 0-31 U/L Total Protein 7.2 6.5-8.0 g/dL Albumin Level 3.7 3.5-5.0 g/dL Alkaline Phosphatase 71 39-117 U/L Dakota AVINA Reviewed date:06/05/2024 05:15:56 PM Interpretation: Performing Lab:[address] [address] Notes/Report: Dakota AVINA SEE NOTE SEE SCA [...] TIMES DAILY WITH MEALS for 30 Active Pionfyvrwv-MUKG-Ueasjh ne 50-325-40 MG TAKE 1 TO 2 [...] She does not smoke nor use a md significant amounts of alcohol. She does not smoke nor use a md significant amounts of alcohol. She does not smoke nor use a md significant amounts of alcohol. She does not smoke nor use a md significant amounts of alcohol. She does not [...] Status Risk Notes Problem Colon cancer screening (572589371) Colon cancer screening (Z12.11) Active confirmed Problem Irritable bowel syndrome (64206261) Irritable bowel syndrome (K58.9) Active confirmed Problem 23816838 Crohn's disease of both small and large intestine without complication (K50.80) Active confirmed Problem 985885307 Nausea (R11.0) Active confirmed Problem 112924953 Encounter for therapeutic drug level monitoring (Z51.81) Active confirmed Problem Dysphagia (79190563) Dysphagia (R13.10) Active confirmed Problem 29514430 Crohns disease o f both small and large intestine without complication (K50.80) Active confirmed Problem 581116626 Gastroesophageal reflux disease, esophagitis presence not specified (K21.9) Active confirmed Problem Chronic gastritis (8269971) Chronic gastritis (K29.50) Active confirmed Problem 09525447 Diarrhea, unspecified type (R19.7) Active confirmed Problem 91609640 Crohn''s disease of both small and large intestine without complication (K50.80) Active confirmed Problem 87046307 Erythematous ski n nodule (R22.9) Active confirmed Problem 84372015 Vaginal candidia sis (B37.3) Active confirmed Problem Drug monitoring done (074660013) Encounter for therapeutic drug monitoring (Z51.81) Active confirmed Problem Chronic GERD (K21.9) Active confirmed Vital Signs Blood pressure diastolic 11 mm Hg 06/05/2024 Height 65.5 in 06/05/2024 Blood pressure systolic 111 mm Hg 06/05/2024 Weight 267 lbs 06/05/2024 BMI 43.75 kg/m2 06/05/2024 Encounters Encounter Location Date Provider Diagnosis [facility] [address] [place] [address] 06/05/2024 Emerson Canales Crohn's disease of both small and large intestine without complication K50.80 ; Irritable bowel syndrome K58.9 ; Chronic GERD K21.9 and Vaginal candidiasis B37.3 [facility] [address] [place] [address] 12/23/2023 Emerson Canales [facility] [address] [place] [address] 02/03/2024 Emerson Canales [facility] [address] [place] [address] 02/03/2024 Emerson Canales Crohn''s disease of both small and large intestine without complication K50.80 and Encounter for therapeutic drug monitoring Z51.81 [facility] [address] [place] [address] 05/01/2024 Emerson Canales [facility] [address] [place] [address] 06/05/2024 Emerson Canales [facility] [address] [place] [address] 06/14/2024 Emerson Canales [facility] [address] [place] [address] 06/22/2024 Emerson Canales Assessments Encounter Date Diagnosis [...] Name:Emerson Fry Ally , 01/09/2025 01:20:00 PM, [address] [place] [address], [address], [place], [address], Insurance Providers Payer Name Payer Address Payer Phone Subscriber Number Group Number Insured Name Patient Relationship to Insured Coverage Start Date Coverage End Date MEDICAID OF [facility] [address] [place] [id number] STEPHIE LLOYD Self - patient is the insured Medical (General) History Medical History History ICD Code Colonoscopy 07-07-2012 Crohn's colitis-diagnosed in 2000- colonoscopy in 02/2009 at [facility] with diffuse colitis/ileitis-has been treated with Remicade, Humira, and azathioprine in the past at [facility]--Stephie reports that the mesalamines and azathioprine seem to exacerbate her GI symptoms with gas and cramps--however, at those time she is usually having active Crohn's disease symptoms as well---she was hospitalized at [facility] in 06/2013 for a flareup of the [...] 01/2019 for the Crohn's and psoriasis Denies MO,DM,CVA,Lung disease,renal dise ase Anemia--sees Dr. Pulido/Dr. Griffiths--rece dbe IV Iron in the past Fibromyalgia Pancreatitis--in [...]
--- OUTSIDE RECORDS SUMMARY | 2024-09-05 13:18 | XMS_ITS ---
Author Organization [facility] Address [address] [place] [address] Care Team Providers Care Corporate Operations Compliance Manager Name Role Phone Reymundo WEEMS, Summer Primary Care Provider Unavailab Emerson Kothari [phone] REASON FOR VISIT waiting on ins for every 4 weeks stelara/ denied Encounters Encounter Location Date Provider Diagnosis [facility] [address] [place] [address] 06/14/2024 Emerson Canales Plan Of Treatment Next Appt Details Provider Name:Emerson Canales , 01/09/2025 01:20:00 PM, [address], [address], [place], [address], Progress Notes * STEPHIE LLOYDDOB: 7 (48 yo F)Acc No.[id number]:06/14/2024 Patient:?STEPHIE LLOYD :1975???Age:48 Y???Sex:Female Address:[address] [place] [address] * true * Date:? Generated for [employer] gema/Enmanuel/eTransmitting on:?09/05/2024 01:18 PM EDT
--- OUTSIDE RECORDS SUMMARY | 2024-09-05 13:18 | XMS_ITS | Encounter Summary ---
Author Organization [employer] Address [address] 7[address] [place] [address] Care Team Providers Care Hvac Project Engineer Name Role Phone Ceci Billings MD Primary Care Provide r Reason for Visit * Reason Onset Date Comments Medication Question 03/12/2024 Encounter Details Date Type Department Care Team ([facility] Contact Info) Description 03/12/2024 Telephone [facility] [address] [place] [address] Ceci Billings MD [address] [place] [address] Medication Question Social History Tobacco Use Types [...] questions on med PA . Callback number [phone] documented in this encounter Plan of Treatment Upcoming Encounters Date Type Department Care Team (Late st Contact Info) Description 09/07/2024 9:00 AM EDT Office Visit [facility] [address] [place] [address] Ceci Billings MD [address] [place] [address] documented as of this encounter Visit Diagnoses Not on filedocumented in this encounter Additional Health Concerns Assessment Noted Time PHQ-9 Depression Total Score: 0 10/05/19 24 9:33 AM EDT documented as of this encounter Care Teams Hvac Project Engineer Relationship Specialty Start Date End Date Ceci Billings MD [address] [place] [address] PCP - General Family Medicine 06/02/20 documented as of this encounter
--- OUTSIDE RECORDS SUMMARY | 2024-09-05 13:18 | XMS_ITS | Encounter Summary ---
Author Organization [employer] Address [address] [place] [address] 7t [place] [address] Care Team Providers Care Snow Plow Operator Name Role Phone Ceci Billings MD Primary Care Provide r Encounter Details Date Type Department Care Team (Late st Contact Info) Description 05/27/2022 Telephone [facility] [address] [place] [phone] Ceci Billings MD [address] [place] [phone] Social History Tobacco Use Types Packs/Day Years [...] Description 09/07/2024 9:00 AM EDT Office Visit [facility] [address] [place] [address] Ceci Billings MD [address] [place] [address] documented as of this encounter Visit Diagnoses Not on filedocumented in this encounter Care Teams Snow Plow Operator Relationship Specialty Start Date End Date Ceci Billings MD [address] [place] [address] PCP - General Family Medicine 06/02/20 documented as of this encounter
--- OUTSIDE RECORDS SUMMARY | 2024-09-05 13:18 | XMS_ITS | Encounter Summary ---
Author Organization [employer] Address [address] 7[address] [place] [address] Care Team Providers Care Financial Data Analyst Name Role Phone Ceci Billings MD Primary Care Provide r Encounter Details Date Type Department Care Team (Late st Contact Info) Description 04/23/2024 Orders Only [facility] [address] [place] [address] Ceci Billings MD [address] [place] [address] Social History Tobacco Use Types Packs/Day Years [...] Description 09/07/2024 9:00 AM EDT Office Visit [facility] [address] [place] [address] Ceci Billings MD [address] [place] [address] documented as of this encounter Visit Diagnoses Not on filedocumented in this encounter Additional Health Concerns Assessment Noted Time PHQ-9 Depression Total Score: 0 10/05/19 24 9:33 AM EDT documented as of this encounter Care Teams Financial Data Analyst Relationship Specialty Start Date End Date Ceci Billings MD [address] [place] [address] PCP - General Family Medicine 06/02/20 documented as of this encounter
--- OUTSIDE RECORDS SUMMARY | 2024-09-05 13:18 | XMS_ITS | Encounter Summary ---
Author Organization [employer] Address [address] 7[address] [place] [address] Care Team Providers Care Jet Aircraft Servicer Name Role Phone Ceci Billings MD Primary Care Provide r Encounter Details Date Type Department Care Team (Late st Contact Info) Description 07/27/2023 Orders Only [facility] [address] [place] [address] Ceci Billings MD [address] [place] [address] Class 3 severe obesity with serious comorbidity [...] Description 09/07/2024 9:00 AM EDT Office Visit [facility] [address] [place] [address] Ceci Billings MD [address] [place] [address] documented as of this encounter Visit Diagnoses Diagnosis Class 3 severe obesity with serious comorbidity and body mass index (BMI) of 45.0 to 49.9 in adult, unspecified obesity type- Primary documented in this encounter Additional Health Concerns Assessment Noted Time PHQ-9 Depression Total Score: 5 07/07/19 24 10:12 AM EDT documented as of this encounter Care Teams Jet Aircraft Servicer Relationship Specialty Start Date End Date Ceci Billings MD [address] [place] [address] PCP - General Family Medicine 06/02/20 documented as of this encounter
--- OUTSIDE RECORDS SUMMARY | 2024-09-05 13:18 | XMS_ITS | Encounter Summary ---
Author Organization [email or web address] Address [address] [place] [address] Care Team Providers Care Entry Level Java Developer Name Role Phone Ceci Billings MD Primary Care Provide r Reason for Visit * Reason Comments Med Refill Encounter Details Date Type Department Care Team (Late st Contact Info) Description 06/22/2024 Refill [facility] [address] [place] [address] Ceci Billings MD [address] [place] [address] Migraine without aura, not refractory Social History [...] Visit [facility] [address] [place] [address] Ceci Billings MD [address] [place] [address] documented as of this encounter Visit Diagnoses Diagnosis Migraine without aura, not refractory documented in this encounter Additional Health Concerns Assessment Noted Time PHQ-9 Depression Total Score: 0 10/05/19 24 9:33 AM EDT documented as of this encounter Care Teams Entry Level Java Developer Relationship Specialty Start Date End Date Ceci Billings MD [address] [place] [address] PCP - General Family Medicine 06/02/20 documented as of this encounter
--- OUTSIDE RECORDS SUMMARY | 2024-09-05 13:18 | XMS_ITS | Encounter Summary ---
Author Organization [employer] Address [address] [place] [address] Care Team Providers Care Multimedia Authoring Specialist Name Role Phone Ceci Billings MD Primary Care Provide r Reason for Visit * Reason Comments Med Refill Encounter Details Date Type Department Care Team (Late st Contact Info) Description 11/30/2023 Refill [facility] [address] [place] [address] Ceci Billings MD [address] [place] [address] Muscle spasm Social History Tobacco Use Types [...] EDT Office Visit [facility] [address] [place] [address] Ceci Billings MD [address] [place] [address] documented as of this encounter Visit Diagnoses Diagnosis Muscle spasm Spasm of muscle documented in this encounter Additional Health Concerns Assessment Noted Time PHQ-9 Depression Total Score: 0 10/05/19 24 9:33 AM EDT documented as of this encounter Care Teams Multimedia Authoring Specialist Relationship Specialty Start Date End Date Ceci Billings MD [address] [place] [address] PCP - General Family Medicine 06/02/20 documented as of this encounter
--- OUTSIDE RECORDS SUMMARY | 2024-09-05 13:18 | XMS_ITS ---
Author Organization [facility] Address [address] [place] [address] Care Team Providers Care Gyroscope Repairer Name Role Phone Summer Dwyer NP Primary Care Provider Unavailab Emerson Kothari [phone] Encounters Encounter Location Date Provider Diagnosis [facility] [address] [place] [address] 06/05/2024 Emerson Canales Plan Of Treatment Next Appt Details Provider Name:Emerson Canales , 01/09/2025 01:20:00 PM, [address], [address], [place], [address], Progress Notes * STEPHIE DORSEYDOB: 7 (48 yo F)Acc No.[id number]:06/05/2024 Patient:?STEPHIE DORSEY :1975???Age:48 Y???Sex:Female Address:[address] [place] [address] * true * Date:? Generated for [employer] gema/Enmanuel/eTransmitting on:?09/05/2024 01:17 PM EDT
== END 2024-09-05 14:19 | disposition home or self-care (01) ==
PROVIDERS: PCP Internal Medicine; Visit Provider Physician Assistant
DX: M19.011 Primary osteoarthritis, right shoulder (principal); M17.0 Bilateral primary osteoarthritis of knee
CPT/HCPCS: 20610; 99213

== ENCOUNTER → 2024-09-05 12:59 | Outpatient (BNVA) | payer MEDICAID, SELFPAY | PROVIDERS: PCP Internal Medicine; Visit Provider Physician Assistant | DX: M17.0 Bilateral primary osteoarthritis of knee (principal); M19.011 Primary osteoarthritis, right shoulder | CPT/HCPCS: 20610; 99212; J7323 ==

== ENCOUNTER 2024-09-12 13:16 | Outpatient (AMB) | payer MEDICAID, SELFPAY ==
--- NOTE | 2024-09-12 13:22 | A.OFFVIS_ITS ---
Intake Visit Reasons: INJ- B/L knee Euflexxa#3 Intake Note: Windy is a 48 year old female who presents today for a bilateral knee Euflexxa injections #3. Allergies ciprofloxacin [From CIPRO] Allergy (Severe, Verified 09/05/24 13:15) GI PAIN vancomycin Allergy (Severe, Verified 09/05/24 13:15) Anaphylaxis HPI HPI INJ- B/L knee Euflexxa#3: Details: 49-year-old female returns to the office today for 3. Injection bilateral knees Euflexxa PFSH Medical History (Reviewed 07/03/24 @ 11:42 by Tyson Clark [facility]) COVID Somnolence, daytime TANA (obstructive sleep apnea) Allergic rhinitis Bronchial asthma Trigger finger Dysuria Obesity, morbid, BMI 40.0-49.9 Encounter for Papanicolaou smear for cervical cancer screening Asthma Insomnia Crohn's disease Surgical History History of removal of laparoscopic gastric banding device Hx of hand surgery History of carpal tunnel surgery Hx of laparoscopic gastric banding Hx of breast reduction, elective Family History (Reviewed 07/03/24 @ 11:42 by Tyson Clark [facility]) Father HIV (human immunodeficiency virus infection) Mother Hypertension Maternal Grandmother Diabetes mellitus Maternal Grandfather Hypertension Lymphoma Paternal Grandfather No problems noted. 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 Tenderness along the medial and lateral joint line. Full ROM with crepitus. Negative Ivan?s. No ligamentous laxity. NVI. Office Procedures AMB Joint Injection/Aspiration Joint Injection/Aspiration Details: bilat knee euflexxa Primary Site: right knee Secondary Site: left knee Prep: site was prepped using aseptic technique, ethochloride spray was applied and injection warnings given Injected: in the joint Approach Used: anterolateral Procedure: The patient tolerated the procedure well Coding 62320 - Glenohumeral/Tronchanteric Bursa/Intraarticular Procedure code (CPT) selection complete Assessment & Plan Assessment & Plan (1) Osteoarthritis of left knee: Code(s): M17.12 - Unilateral primary osteoarthritis, left knee Category: Medical (2) Patellofemoral arthritis of right knee: Comment: Painful when she walks her treadmill. Is awaiting approval to try gel discussed considering exercise bike. Code(s): M17.11 - Unilateral primary osteoarthritis, right knee Category: Medical Plan Plan was to proceed with gel injection today. Bikat knee euflexxa #3 Injection performed today which the patient tolerated well. She will rest ice and use anti-inflammatories as needed for the next several days. SHe will contact our office in the next 6-8 weeks to discuss cortisone injection if symptoms persist or worsen. Coding Level of Care Code Procedure Only Diagnoses Osteoarthritis of left knee M17.12 Patellofemoral arthritis of right knee M17.11 CPT Codes Coding - Joint 7: 02705 - Glenohumeral/Tronchanteric Bursa/Intraarticular ([id number])
--- OUTSIDE RECORDS SUMMARY | 2024-09-12 13:49 | XMS_ITS ---
Author Organization [facility] Address [address] [place] [address] Care Team Providers Care Healthcare Facility Administrator Name Role Phone Reymundo WEEMS, Summer Primary Care Provider Unavailab Emerson Kothari [phone] REASON FOR VISIT Stelara Q 4 weeks Rx Encounters Encounter Location Date Provider Diagnosis [facility] [address] [place] [address] 06/22/2024 Emerson Canales Plan Of Treatment Next Appt Details Provider Name:Emerson Canales , 01/09/2025 01:20:00 PM, [address], [address], [place], [address], Progress Notes * STEPHIE LLOYDDOB: 7 (48 yo F)Acc No.[id number]:06/22/2024 Patient:?STEPHIE LLOYD :1975???Age:48 Y???Sex:Female Address:[address] [place] [address] * true * Date:? Generated for [employer] gema/Enmanuel/eTransmitting on:?09/12/2024 01:48 PM EDT
--- OUTSIDE RECORDS SUMMARY | 2024-09-12 13:49 | XMS_ITS | Clinical Summary ---
Author Organization 175 [facility] Address [address] [place] [address] Phone Care Team Providers Care Utility Bill Complaints Investigator Name Role Phone Katrina Sherwood MD Primary Care Provider [phone]- [phone] Allergies Active Allergy Reactions Criticality Noted Date [...] (XYLOCAINE-MPF) 1 % injection 0.5 mLIndications:Planta r fasciitis, right .5 mL inj Once PRN Procedure 09/10/2024 09/10/2024 Ended lidocaine (PF) (XYLOCAINE-MPF) 1 % injection 0.5 mLIndications:Capsul itis of left foot .5 mL inj Once PRN Procedure 09/10/2024 09/10/2024 Ended triamcinolone acetonide (KENALOG-40) 40 mg/mL injection 40 mgIndications:Planta r fasciitis, right 40 mg IAtc Once PRN Procedure 09/10/2024 09/10/2024 Ended triamcinolone acetonide (KENALOG-40) 40 mg/mL injection 40 mgIndications:Capsul itis of left foot 40 mg IAtc Once PRN Procedure 09/10/2024 09/10/2024 Ended Encounters Date Type Department Care Team Description 09/10/2024 8:30 AM EDT Office Visit Orthopedic Surgery [facility] [address] [address] Juan Moody DPM Lumbosacral radiculopathy (Primary Dx); Posterior tibial tendinitis of right leg; Plantar fasciitis, right; Capsulitis of left foot 07/09/2024 8:30 AM EDT Office Visit Orthopedic [facility] [address] [address] Juan Moody DPM Lumbosacral radiculopathy (Primary Dx); [...] - - Weight 127 kg (280 lb) 09/10/2024 8:28 AM EDT Height 165.1 cm (5' 5 ) 09/10/2024 8:28 AM EDT Body Mass Index 46.59 09/10/2024 8:28 AM EDT Plan of Treatment Upcoming Encounters Date Type Department Care Team (Late st Contact Info) Description 12/11/2024 1:15 PM EDT Office Visit Orthopedic Surgery - [place] [address] [phone] Juan Moody, DPAng [address] [address] Health Maintenance Due Date Last Done Comments Breast Cancer Screening 1975 Colorectal Cancer Screening: Colonoscopy 03/23/2022 HIV Screening 03/23/2022 Hepatitis C Screening 03/23/2022 Social Influencers of Health Screening 03/23/2022 COVID-19 Vaccine ( season) 2023 08/19/2020, 07/11/2020 Influenza Vaccine (Season Ended) 2024 02/15/2023, 05/07/2021, 12/24/2020, Additional history exists Depression Screening 09/07/2025 09/07/2024 Cervical Cancer Screening: HPV 11/09/2026 11/09/2021 Cholesterol Screening (Lipid Panel) 08/07/2029 08/07/2024, 08/06/2022, 08/06/2022 DTaP,Tdap,and Td Vaccines (4 - [...] Diagnosis Comments INJECTION TENDON OR LIGAMENT Routine 09/10/2024 8:30 AM EDT Capsulitis of left foot INJECTION TENDON OR LIGAMENT Routine 09/10/2024 8:30 AM EDT Plantar fasciitis, right INJECTION TENDON OR LIGAMENT Routine 07/09/2024 8:30 AM EDT Plantar fasciitis LIPID PANEL Routine 08/06/2022 HM HPV Routine 11/09/2021 from Last 3 Months or Most Recently Relevant to Health Maintenance Results * Injection tendon or ligament (09/10/2024 8:30 AM EDT) Narrative Juan Moody DPM - 09/10/2024 8:30 AM EDT Juan Moody DPM ? 09/10/2024 ??7:49 PM Injection tendon or ligament Indications: pain Details: 25 G needle Medications: 0.5 mL lidocaine (PF) 1 %; 40 mg triamcinolone acetonide 40 mg/mL Informed Consent: ??Laterality: ??Left us Juan Moody DPM IN CLINIC/BEDSIDE ORDERABLE S Final Result * Injection tendon or ligament (09/10/2024 8:30 AM EDT) Narrative Juan Moody DPM - 09/10/2024 8:30 AM EDT Juan Moody DPM ? 09/10/2024 ??7:49 PM Injection tendon or ligament Indications: pain Details: 25 G needle Medications: 0.5 mL lidocaine (PF) 1 %; 40 mg triamcinolone acetonide 40 mg/mL Informed Consent: ??Laterality: ??Right Juan Moody DPM IN CLINIC/BEDSIDE ORDERABLE S Final Result * Injection tendon or ligament (07/09/2024 8:30 AM EDT) Narrative Juan Moody DPM - 07/09/2024 8:30 AM EDT Juna Moody DPM ? 07/09/2024 ??7:26 PM Injection tendon or ligament Indications: pain Details: 25 G needle Medications: 0.5 mL lidocaine (PF) 1 %; 40 mg triamcinolone acetonide 40 mg/mL Informed Consent: ??Laterality: ??Bilateral Juan Moody DPM IN CLINIC/BEDSIDE ORDERABLE S Final Result * Lipid panel (08/06/2022) [facility] LDL/HDL Ratio 0 Comment:no interpretation, a bstracted Triglycerides 0 mg/dL Comment:no interpretation, a bstracted Cholesterol 0 mg/dL Comment:no interpretation, a bstracted HDL 0 mg/dL Comment:no interpretation, a bstracted LDL Cholesterol 0 mg/dL Comment:no interpretation, a bstracted Blood Venous blood specimen / Unknown Result [facility] Historical Provider LAB BLOOD ORDERABLES Marcelina l Result * Cervical Cancer Screening: HPV (11/09/2021) [facility] Cervical Cancer Screening: HPV abstracted Historical Provider HEALTH MAINTENANCE Final Result from Last 3 Months or Most Recently Relevant to Health Maintenance Insurance MEDICAID - [place] Care Teams Utility Bill Complaints Investigator Relationship Specialty Start Date End Date Timblin, MD Katrina [address] [address] PCP - General Internal Medicine 01/02/14
--- OUTSIDE RECORDS SUMMARY | 2024-09-12 13:49 | XMS_ITS | Encounter Summary ---
Author Organization [facility] Address [address] [place] [address] Care Team Providers Care Hand Leather Trimmer Name Role Phone Katrina Sherwood MD Primary Care Provider [phone]- [phone] Reason for Visit * Reason Comments Foot Pain Posterior tibial ten dinitis of right legEquinus contracture of right ankleLumbosacral radiculopathyMorton's neuroma of right footPlantar fasciitis, right Encounter Details Date Type Department Care Team (Latest Contact Info) Description 09/10/2024 8:30 AM EDT Office Visit Orthopedic Surgery - [place] [address] [phone] Juan Moody, DPAng [address] [address] Lumbosacral radiculopathy (Primary Dx); Posterior tibial tendinitis of right leg; Plantar fasciitis, right; Capsulitis of left foot Social History Tobacco Use Types Packs/Day Years [...] Mass Index 46.59 09/10/2024 8:28 AM EDT documented in this encounter Progress Notes * Juan Moody DPM - 09/10/2024 8:30 AM EDTAssociated Order(s): Injection tendon or ligament; Injection tendon or ligament Post-Procedure Diagnose(s): Capsulitis of left foot; Plantar fasciitis, right IDENTIFIER: @TITLE@ Gabino is a 48 y.o. year old female who presents for consultation. CC: Bilateral foot pain HPI: 48-year-old female returns to office chief complaint of increased pain both to the left midfoot andthe right hindfoot. Patient has she continues to do her stretching exercises and wear supportive shoes. Patient recently has been wearing more flip-flops and less supportive shoes due to the change in weather. Patient notes that her flareups have not been trauma induced. Patient notes first step inthe morning can be increasingly painful and it is painful after standing for prolonged amounts of time. ROS: GENERAL: Pt denies nausea, fever, vomiting, [...] Outpatient Medications Marked as Taking for the 09/10/24 encounter (Office Visit) with Juan Moody DPM [...] Sharp/dull sensation intact, protective sensation intact on [place]. Tingling sharp shooting pain radiating into the leg from the bottom of the foot up. ORTHOPEDIC: Good muscle strength 5/5 of all flexors and extensors. Dorsi flexion of ankle , less than 90 degrees bilateral, plantar flexion WNL. No muscle atrophy. Return of increasing continued painon palpation of the medial tubercle of the right and left heel. Patient has returned pain to the dorsal midfoot of the left foot. Digits are reducibly contractible 2 through 5 [...] Posterior tibial tendinitis of right leg 3. Plantar fasciitis, right 4. Capsulitis of left foot PLAN: Pt was seen and examined, history reviewed. Patient continues to have some increased pain along the medial aspect of the feet bilaterally. Patient instructed to continue with orthotics and supportive shoes as often as possible Patient was once again educated on radiculopathy and the causes of radiating pain within the lower extremities bilaterally. Patient is being worked up by a orthotist/prosthetist for this pain Patient understands that she should be using topical menthol for the pain within the bilateral feetsecondary to lumbosacral radiculopathy Patient being treated for Planter fasciitis Conservative [...] triamcinolone acetonide 40 mg/mL Informed Consent: Laterality: Right Injection tendon or ligament Indications: pain Details: 25 G needle Medications: 0.5 mL lidocaine (PF) 1 %; 40 mg triamcinolone acetonide 40 mg/mL Informed Consent: Laterality: Left Patient being treated for left midfoot pain Conservative treatment options discussed and the decision made to try an corticosteroid injection today. Risks and benefits explained to patient. Injection to the area was performed after written consent was obtained. Risks and benefits discussed in detail with patient and include but are not limited to risk of infection risk of recurrence risk of steroid flare. Injection given to the left midfoot of half cc 1% lidocaine half cc of Kenalog 40 Patient understands that the first three days status post injection, the site may feel sore. Patient is to ice and elevate during this time. Patient understands that the injection is to decrease inflammation and reduce flares. Patient understands that it is variable how long the injection lasts. All questions answered. Juan Moody DPM documented in this encounter Plan of Treatment Upcoming Encounters Date Type Department Care Team (Late st Contact Info) Description 12/11/2024 1:15 PM EDT Office Visit Orthopedic Surgery - [place] [address] [phone] Juan Moody DPM [address] [address] documented as of this encounter Procedures Procedure Name Priority Date/Time Associated Diagnosis Comments INJECTION TENDON OR LIGAMENT Routine 09/10/2024 8:30 AM EDT Capsulitis of left foot INJECTION TENDON OR LIGAMENT Routine 09/10/2024 8:30 AM EDT Plantar fasciitis, right documented in this encounter Results * Injection tendon or ligament (09/10/2024 [...] unspecified Posterior tibial tendinitis of right leg Plantar fasciitis, right Capsulitis of left foot documented in this encounter Administered Medications Inactive Administered Medications - up to 3 most recent administrations Medication Order MAR Action Action Date Dose Rate Site lidocaine (PF) (XYLOCAINE-MPF) 1 % injection 0.5 mL 0.5 mL, injection, Once PRN Procedure, Starting on Tue09/10/24 at 0830, For 1 doseIndications:Plantar fasciitis, right Given 09/10/2024 8:30 AM EDT 0.5 mL lidocaine (PF) (XYLOCAINE-MPF) 1 % injection 0.5 mL 0.5 mL, injection, Once PRN Procedure, Starting on Tue09/10/24 at 0830, For 1 doseIndications:Capsulitis of left foot Given 09/10/2024 8:30 AM EDT 0.5 mL triamcinolone acetonide (KENALOG-40) 40 mg/mL injection 40 mg 40 mg, intra-articular, Once PRN Procedure, Starting on Tue09/10/24 at 0830, For 1 doseIndications:Plantar fasciitis, right Given 09/10/2024 8:30 AM EDT 40 mg triamcinolone acetonide (KENALOG-40) 40 mg/mL injection 40 mg 40 mg, intra-articular, Once PRN Procedure, Starting on Tue09/10/24 at 0830, For 1 doseIndications:Capsulitis of left foot Given 09/10/2024 8:30 AM EDT 40 mg documented in this encounter Care Teams Hand Leather Trimmer Relationship Specialty Start Date End Date Katrina Sherwood MD [address] [place] [phone] PCP - General Internal Medicine 01/02/14 documented as of this encounter
--- OUTSIDE RECORDS SUMMARY | 2024-09-12 13:49 | XMS_ITS ---
Author Organization [facility] Address [address] [place] [address] Care Team Providers Care Transportation Supervisor Name Role Phone Summer Dwyer NP Primary Care Provider Unavailab Emerson Kothari [phone] Encounters Encounter Location Date Provider Diagnosis [facility] [address] [place] [address] 06/05/2024 Emerson Canales Plan Of Treatment Next Appt Details Provider Name:Emerson Canales , 01/09/2025 01:20:00 PM, [address], [address], [place], [address], Progress Notes * STEPHIE DORSEYDOB: 7 (48 yo F)Acc No.[id number]:06/05/2024 Patient:?STEPHIE DORSEY :1975???Age:48 Y???Sex:Female Address:[address] [place] [address] * true * Date:? Generated for Printi gema/Enmanuel/eTransmitting on:?09/12/2024 01:49 PM EDT
--- OUTSIDE RECORDS SUMMARY | 2024-09-12 13:49 | XMS_ITS ---
Author Organization [facility] Address [address] [place] [address] Care Team Providers Care Timber Management Technician Name Role Phone Reymundo WEEMS, Summer Primary Care Provider Unavailab Emerson Kothari [phone] REASON FOR VISIT waiting on ins for every 4 weeks stelara/ denied Encounters Encounter Location Date Provider Diagnosis [facility] [address] [place] [address] 06/14/2024 Emerson Canales Plan Of Treatment Next Appt Details Provider Name:Emerson Canales , 01/09/2025 01:20:00 PM, [address], [address], [place], [address], Progress Notes * STEPHIE LLOYDDOB: 7 (48 yo F)Acc No.[id number]:06/14/2024 Patient:?STEPHIE LLOYD :1975???Age:48 Y???Sex:Female Address:[address] [place] [address] * true * Date:? Generated for Randolphi gema/Enmanuel/eTransmitting on:?09/12/2024 01:48 PM EDT
--- OUTSIDE RECORDS SUMMARY | 2024-09-12 13:49 | XMS_ITS | Patient Health Record ---
Author Organization [facility] Address [address] [place] [address] Care Team Providers Care Chiropractor Sole Practitioner Name Role Phone Reymundo WEEMS, Summer Primary Care Provider Emerson Sauceda [phone] Allergies Allergen (clinical drug ingredient) Drug/Non Drug Allergy documented on EMR Reaction Allergy Type Onset Date Status vancomycin Vancomycin HCl Unknown Drug Allergy A ctive ciprofloxacin cipro (uncoded) Unknown Allergy Active Results Component Value Reference Range Notes Complete Blood Count Auto Di ff Reviewed date:04/09/2024 10:38:42 PM Interpretation: Performing Lab:[facility], [address] [place] [address] Notes/Report: White Blood Count 5.2 4.8-10.8 X10*3/uL [...] Panel Reviewed date:04/04/2024 01:40:57 PM Interpretation: Performing Lab:[address] [address] Notes/Report: Bilirubin Total 0.2 0.0-1.0 mg/dL Bilirubin Direct < 0.2 0.0-0.5 mg/dL Aspartate Amino Transferase 22 5-31 U/L Alanine Aminotransferase 34 0-31 U/L Total Protein 7.2 6.5-8.0 g/dL Albumin Level 3.7 3.5-5.0 g/dL Alkaline Phosphatase 71 39-117 U/L Dakota AVINA Reviewed date:06/05/2024 05:15:56 PM Interpretation: Performing Lab:[address] [address] Notes/Report: Dakota AVINA SEE NOTE SEE SCA [...] TIMES DAILY WITH MEALS for 30 Active Sgieicpnzz-OVQF-Gzzqij ne 50-325-40 MG TAKE 1 TO 2 [...] She does not smoke nor use a mn significant amounts of alcohol. She does not smoke nor use a mn significant amounts of alcohol. She does not smoke nor use a mn significant amounts of alcohol. She does not smoke nor use a mn significant amounts of alcohol. She does not [...] Status Risk Notes Problem Colon cancer screening (812722551) Colon cancer screening (Z12.11) Active confirmed Problem Irritable bowel syndrome (05782180) Irritable bowel syndrome (K58.9) Active confirmed Problem 17006708 Crohn's disease of both small and large intestine without complication (K50.80) Active confirmed Problem 452845137 Nausea (R11.0) Active confirmed Problem 403499353 Encounter for therapeutic drug level monitoring (Z51.81) Active confirmed Problem Dysphagia (50992266) Dysphagia (R13.10) Active confirmed Problem 31474339 Crohns disease o f both small and large intestine without complication (K50.80) Active confirmed Problem 753227512 Gastroesophageal reflux disease, esophagitis presence not specified (K21.9) Active confirmed Problem Chronic gastritis (5577837) Chronic gastritis (K29.50) Active confirmed Problem 20956803 Diarrhea, unspecified type (R19.7) Active confirmed Problem 41866517 Crohn''s disease of both small and large intestine without complication (K50.80) Active confirmed Problem 86596027 Erythematous ski n nodule (R22.9) Active confirmed Problem 00258121 Vaginal candidia sis (B37.3) Active confirmed Problem Drug monitoring done (538740859) Encounter for therapeutic drug monitoring (Z51.81) Active confirmed Problem Chronic GERD (K21.9) Active confirmed Vital Signs Blood pressure diastolic 11 mm Hg 06/05/2024 Height 65.5 in 06/05/2024 Blood pressure systolic 111 mm Hg 06/05/2024 Weight 267 lbs 06/05/2024 BMI 43.75 kg/m2 06/05/2024 Encounters Encounter Location Date Provider Diagnosis [facility] [address] [place] [address] 06/05/2024 Emerson Canales Crohn's disease of both small and large intestine without complication K50.80 ; Irritable bowel syndrome K58.9 ; Chronic GERD K21.9 and Vaginal candidiasis B37.3 [facility] [address] [place] [address] 12/23/2023 Emerson Canales [facility] [address] [place] [address] 02/03/2024 Emerson Canales [facility] [address] [place] [address] 02/03/2024 Emerson Canales Crohn''s disease of both small and large intestine without complication K50.80 and Encounter for therapeutic drug monitoring Z51.81 [facility] [address] [place] [address] 05/01/2024 Emerson Canales [facility] [address] [place] [address] 06/05/2024 Emerson Canales [facility] [address] [place] [address] 06/14/2024 Emerson Canales [facility] [address] [place] [phone] 06/22/2024 Emerson Canales Assessments Encounter Date Diagnosis [...] Name:Emerson Fry Ally , 01/09/2025 01:20:00 PM, [address] [place] [address], [address], [place], [address], Insurance Providers Payer Name Payer Address Payer Phone Subscriber Number Group Number Insured Name Patient Relationship to Insured Coverage Start Date Coverage End Date MEDICA[facility] [address] [place] [phone] [id number] STEPHIE LLOYD Self - patient is the insured Medical (General) History Medical History History ICD Code Colonoscopy 07-07-2012 Crohn's colitis-diagnosed in 2000- colonoscopy in 02/2009 at [facility] with diffuse colitis/ileitis-has been treated with Remicade, Humira, and azathioprine in the past at [facility]--Stephie reports that the mesalamines and azathioprine seem to exacerbate her GI symptoms with gas and cramps--however, at those time she is usually having active Crohn's disease symptoms as well---she was hospitalized at [facility] in 06/2013 for a flareup of the [...] 01/2019 for the Crohn's and psoriasis Denies AK,DM,CVA,Lung disease,renal dise ase Anemia--sees Dr. Pulido/Dr. Griffiths--rece [...]
== END 2024-09-12 14:07 | disposition home or self-care (01) ==
LOC: HO.HOS 13:16
PROVIDERS: PCP Internal Medicine; Visit Provider Physician Assistant
DX: M17.0 Bilateral primary osteoarthritis of knee (principal)
CPT/HCPCS: 20610

== ENCOUNTER → 2024-09-12 13:16 | Outpatient (BNVA) | payer MEDICAID, SELFPAY | PROVIDERS: PCP Internal Medicine; Visit Provider Physician Assistant | DX: M17.0 Bilateral primary osteoarthritis of knee (principal) | CPT/HCPCS: 20610; J7323 ==

== ENCOUNTER 2024-10-23 14:00 | Outpatient (RCR) | payer MEDICARE, MEDICAID, SELFPAY | END 2025-04-15 10:40 | disposition home or self-care (01) | LOC: HO.PT 14:00 | PROVIDERS: PCP Internal Medicine; Visit Provider Physician Assistant | DX: M19.011 Primary osteoarthritis, right shoulder (principal) | CPT/HCPCS: 97110; 97161 ==

== ENCOUNTER 2024-10-30 13:50 | Outpatient (AMB) | payer MEDICARE, MEDICAID, SELFPAY ==
[2024-10-30 14:07] VITALS: BP 100/60; PULSE 75; O2SAT 100; BMI 39.7
--- NOTE | 2024-10-30 14:07 | MHC.OFFVIS ---
Vital Signs 10/30/24 14:07 Height 5 ft 8 in Weight 261 lb 3.964 oz BMI 39.7 BP 100/60 Blood Pressure Location Lt brachial Position Sitting Pulse 75 Pulse Source Pulse Oximeter Pulse Oximetry (%) 100 Oxygen Delivery Method Room Air Intake Visit Reasons: Obstructive sleep apnea Intake Note: pt is here for follow up of sleep apnea and asthma, she is now on Arnuity and using her cpap everynight needs supplies sent to [facility] home care. Allergies ciprofloxacin (From CIPRO) Allergy (Severe, Verified 10/30/24 14:20) GI PAIN vancomycin Allergy (Severe, Verified 10/30/24 14:20) Anaphylaxis Medication List - Last Reconciled 10/30/24 by Reggie Schmidt MD albuterol sulfate 2.5 mg inhalation QID PRN albuterol sulfate 90 mcg/actuation (ProAir HFA) 2 puffs inhalation Q6H PRN ericmpmlph-cqapidimpzluo-tuoa 50-325-40 mg 1 tab PO Q4H clonazepam 0.5 mg PO DAILY PRN cyclobenzaprine 10 mg PO TID PRN dicyclomine 20 mg PO TID fexofenadine (Luisa Allergy) 180 mg PO DAILY fluconazole 150 mg PO Q3D PRN fluticasone propionate 110 mcg/actuation 110 mcg inhalation BID 30 days gabapentin mg PO 3XD levonorgestrel (Mirena) 20 mcg intrauterine DAILY montelukast 10 mg PO BEDTIME 30 days nabumetone 500 mg PO BID 30 days pantoprazole 40 mg PO DAILY propranolol 10 mg PO BID sertraline 75 mg PO DAILY tirzepatide (weight loss) (Zepbound) 2.5 mg subcut QWEEK ustekinumab (Stelara) 90 mg subcut Q8W zolpidem (Ambien) 10 mg PO BEDTIME Do you need a note to return to daycare/school/sports/work: No HPI HPI Obstructive sleep apnea: Details: 49 years old female case of morbid obesity, obstructive sleep apnea, and bronchial asthma is here for follow-up after 4 months. Breathing mg she is doing very good and sleeps well at least for 6-7 hours per night. She has no issues with the use of CPAP but does need new supplies. Bronchial asthma is also well controlled on Arnuity Ellipta 100 once a day and use of albuterol HFA 2 puffs Q 6 hours p.r.n.. Nasal congestion is under controlled with the use of montelukast. For the last 3 months she was started on Zepbound injection, and she has lost 18 lb of weight so far. But now her insurance is Medicare and she will not be able to get this medicine. [facility] Medical History COVID Somnolence, daytime TANA (obstructive sleep apnea) Allergic rhinitis Bronchial asthma Trigger finger Dysuria Obesity, morbid, BMI 40.0-49.9 Encounter for Papanicolaou smear for cervical cancer screening Asthma Insomnia Crohn's disease Surgical History History of removal of laparoscopic gastric banding device Hx of hand surgery History of carpal tunnel surgery Hx of laparoscopic gastric banding Hx of breast reduction, elective Family History Father HIV (human immunodeficiency virus infection) Mother Hypertension Maternal Grandmother Diabetes mellitus Maternal Grandfather Hypertension Lymphoma Paternal Grandfather No problems noted. 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/ Gender identity: Female Female Reproductive History Menstrual Age of Menarche: 13 Review of Systems Const All systems reviewed & are unremarkable except as noted in HPI and below Eyes Reports no additional complaints ENT Reports nasal congestion (MILD OFF AND ON) Card Denies chest pain, Denies irregular heart rhythm and Denies leg edema Resp Reports as per HPI GI Reports no additional complaints and Reports other (BEING TREATED FOR CROHN'S DISEASE) Reports no additional complaints Musc Reports no additional complaints Skin/Breast Reports system reviewed and no additional complaints, except as documented Neuro Reports no additional complaints Psych Reports no additional complaints and Reports depression (MILD DEPRESSION BEING TREATED WITH SERTRALINE) Endo Reports no additional complaints Physical Exam Vital Signs: Last Vital Signs Pulse 75 10/30/24 14:07 BP 100/60 10/30/24 14:07 Pulse Ox 100 10/30/24 14:07 Oxygen Delivery Method Room Air 10/30/24 14:07 BMI result Body Mass Index 39.7 Const General: healthy appearing (EXCEPT FOR BEING OVERWEIGHT), comfortable, no acute distress, alert and awake Orientation/consciousness: patient oriented x3 HEENT Head: Yes normal to inspection General nose exam: No nasal polyps present and No nasal discharge present Face and sinus: Yes sinuses nontender Mouth: oropharynx normal Throat: No posterior oropharynx normal (NARROW AND CROWDED, MALLAMPATI CLASS 3) Eyes General: appearance normal, both eyes and all related structures Neck Neck: Yes normal visual inspection, Yes no lymphadenopathy, Yes trachea midline and Yes no JVD Thyroid: Thyroid normal Chest Chest palpation & inspection: normal inspection of the chest, normal palpation of entire chest wall and no tenderness Resp Effort & Inspection: normal respiratory effort and other (BREATH SOUNDS ARE DIMINISHED OVER THE BASILAR AREAS BECAUSE OF HER OBESITY) Auscultation: clear to auscultation bilaterally, no crackles, no rhonchi and no wheezes Cardio Palpation: normal PMI Rate: regular rate Rhythm: regular rhythm Heart sounds: no gallops and no murmurs Peripheral pulses: Peripheral pulses 2+ throughout GI Palpation (GI): Soft to palpation, nontender, No hepatosplenomegaly present and no masses Auscultation: normal bowel sounds Back/Spine/Pelvis Thoracic/Lumbar Spine: thoracic and lumbar spine normal to inspection Skin General skin exam: no rashes or lesions noted Neuro General: patient oriented x3 and no focal motor deficits Cranial nerves: Yes CN's II-XII intact bilaterally Extrem General: Yes normal to inspection, Yes no clubbing, cyanosis or edema and Yes no calf tenderness Psych Appearance: grossly abnormal and poorly kempt Speech and movement: Normal speech and movement present Results Reviewed Results Reviewed: Compliance report for the last 30 nights is reviewed and she has used 28/30 nights, 93%. Average use it per night. 6 hours 6 minutes No significant air leak and pressure used is mostly 8-9 cm. Residual AHI only 0.5 Assessment & Plan Assessment & Plan (1) TANA (obstructive sleep apnea): Comment: She is known case of obstructive sleep apnea, mild but remained symptomatic in spite of Conservative measures. She has done very well since started on CPAPtherapy. Her compliance is very good and she is benefiting, sleeping at least 6-7 hours every night. Code(s): G47.33 - Obstructive sleep apnea (adult) (pediatric) Category: Medical Plan: Commended for good compliance and advised to keep on using CPAP regularly every night (2) Bronchial asthma: Comment: PATIENT DOES HAVE LONGSTANDING HISTORY OF BRONCHIAL ASTHMA. IT HAS BEEN MILD, INTERMITTENT , AND CURRENTLY WELL CONTROLLED. FLOVENT HAS BEEN CHANGED TO ARNUITY ELLIPTA 101 INHALATION DAILY AND SHE USES ALBUTEROL HFA ONLY ONCE IN A WHILE. Code(s): J45.909 - Unspecified asthma, uncomplicated Category: Medical Plan: CONTINUE TO USE ARNUITY REGULARLY AND ALBUTEROL HFA ONLY NEEDED. SCRIPT FOR ALBUTEROL HFA IS SENT (3) Obesity, morbid, BMI 50 or higher: Comment: HAS LOST 18 LB OF WEIGHT IN THE LAST 3 MONTHS WHILE SHE WAS ON ZEPBOUND INJECTION She has lost some weight and current BMI 39.7 Code(s): E66.01 - Morbid (severe) obesity due to excess calories Category: Medical Plan: STRESSED THAT SHE NEEDS TO WATCH HER DIET AND DO DAILY WALKING AND MAKE SURE THAT THE WEIGHT KEEPS ON GOING DOWN (4) Allergic rhinitis: Comment: SHE HAS MILD INTERMITTENT CHRONIC ALLERGIC RHINITIS, RELATIVELY CONTROLLED WITH THE CURRENT REGIMEN. Code(s): J30.9 - Allergic rhinitis, unspecified Category: Medical Plan: CONTINUE MONTELUKAST 10 MG DAILY, LUISA 180 MG ONCE A DAY Medications: New albuterol sulfate 90 mcg/actuation (Ventolin HFA) 2 puffs inhalation Q4-6H PRN 8.5 grams 3RF shortness of breath or wheezing 30 days Coding Level of Care Code Est Pt Level 3 (54970) Diagnoses TANA (obstructive sleep apnea) G47.33 Bronchial asthma J45.909 Obesity, morbid, BMI 50 or higher E66.01 Allergic rhinitis J30.9
--- OUTSIDE RECORDS SUMMARY | 2024-10-30 14:41 | XMS_ITS | Encounter Summary ---
Author Organization [employer] Address [address] [place] [address] Care Team Providers Care Automotive Tire Tester Name Role Phone Ceci Billings MD Primary Care Provide r Encounter Details Date Type Department Care Team (Late st Contact Info) Description 08/15/2024 Orders Only [facility] [address] [place] [address] Provider, MD Chito Social History Tobacco Use [...] as of this encounter Plan of Treatment Not on file documented as of this encounter Procedures Procedure Name Priority Date/Time Associated Diagnosis Comments HM PAP/HPV Routine 07/03/2024 11:57 AM EDT documented in this encounter Results * HM PAP/HPV (07/03/2024 11:57 AM EDT) us Historical Provider HEALTH MAINTENANCE Final Result documented in this encounter Visit Diagnoses Not on filedocumented in this encounter Additional Health Concerns Assessment Noted Time PHQ-9 Depression Total Score: 0 10/05/19 24 9:33 AM EDT documented as of this encounter Care Teams Automotive Tire Tester Relationship Specialty Start Date End Date Ceci Billings MD [address] [place] [phone] PCP - General Family Medicine 06/02/20 documented as of this encounter
--- OUTSIDE RECORDS SUMMARY | 2024-10-30 14:41 | XMS_ITS | Clinical Summary ---
Author Organization [facility] Address [address] [place] [address] Phone Care Team Providers Care Drencher Name Role Phone Katrina Sherwood MD Primary Care Provider +1- [phone] Allergies Active Allergy Reactions Criticality Noted Date [...] 8:30 AM EDT Office Visit Orthopedic Surgery [facility] [address] [phone] Juan Moody DPM Lumbosacral radiculopathy (Primary Dx); Posterior tibial tendinitis of right leg; Plantar fasciitis, right; Capsulitis of left foot from Last 3 Months Social History Tobacco [...] 1:15 PM EDT Office Visit Orthopedic Surgery [facility] [address] [phone] Juan Moody DPM [address] [address] Health Maintenance Due Date Last Done Comments Breast Cancer Screening 1975 Colorectal Cancer Screening: Colonoscopy 03/23/2022 HIV Screening 03/23/2022 Hepatitis C Screening 03/23/2022 Medicare Annual Wellness Visit 03/23/2022 Social Influencers of Health Screening 03/23/2022 COVID-19 Vaccine ( season) 2023 08/19/2020, 07/11/2020 Influenza Vaccine (#1) 2024 , 05/07/2021, 12/24/2020, Additional history exists Depression Screening 09/07/2025 09/07/2024 Cervical Cancer Screening: HPV 11/09/2026 11/09/2021 Cholesterol Screening (Lipid Panel) 08/07/2029 08/07/2024, 08/06/2022, 08/06/2022 DTaP,Tdap,and Td Vaccines (4 - Td or Tdap) 04/26/2033 04/26/2023, 07/13/2012, 12/17/1999 Hepatitis B Vaccines Completed 01/08/2010, 07/08/2009, 06/05/2009 Pneumococcal Vaccine: Pediatrics (0 to 5 Years) and At-Risk Patients (6 to 49 Years) Completed 10/05/2023, 07/09/2013, 07/11/2006, Additional history [...] 09/10/2024 8:30 AM EDT Plantar fasciitis, right LIPID PANEL Routine 08/06/2022 HPV Routine 11/09/2021 from Last 3 Months or Most Recently Relevant to Health Maintenance Results * Injection tendon or ligament (09/10/2024 8:30 AM EDT) Narrative Juan Moody DPM - 09/10/2024 8:30 AM EDT Juan Moody DPM 09/10/2024 7:49 PM Injection tendon or ligament Indications: pain Details: 25 G needle Medications: 0.5 mL lidocaine (PF) 1 %; 40 mg triamcinolone acetonide 40 mg/mL Informed Consent: Laterality: Left Juan Moody DPM IN CLINIC/BEDSIDE ORDERABLE S Final Result * Injection tendon or ligament (09/10/2024 8:30 AM EDT) Narrative Juan Moody DPM - 09/10/2024 8:30 AM EDT Juan Moody DPM 09/10/2024 7:49 PM Injection tendon or ligament Indications: pain Details: 25 G needle Medications: 0.5 mL lidocaine (PF) 1 %; 40 mg triamcinolone acetonide 40 mg/mL Informed Consent: Laterality: Right Juan Moody DPM IN CLINIC/BEDSIDE ORDERABLE S [...] * Cervical Cancer Screening: HPV (11/09/2021) Pathologist [facility] Cervical Cancer Screening: HPV abstracted Historical Provider HEALTH MAINTENANCE Final Result from Last 3 Months or Most Recently Relevant to Health Maintenance Insurance MEDICAID - [place] MEDICARE Care Teams Drencher Relationship Specialty Start Date End Date Bertie, MD Katrina [address] [place] [phone] PCP - General Internal Medicine 01/02/14
--- OUTSIDE RECORDS SUMMARY | 2024-10-30 14:42 | XMS_ITS | Patient Health Record ---
Author Organization [facility] Address [address] [place] [address] Care Team Providers Care Feedmobile Driver Name Role Phone John MANCINI, Brisa Primary Care Provider Unavail able Emerson Canales Unavailable [phone] Allergies Allergen (clinical drug ingredient) Drug/Non Drug Allergy documented on EMR Reaction Allergy Type Onset Date Status vancomycin Vancomycin HCl Unknown Drug Allergy A ctive ciprofloxacin cipro (uncoded) Unknown Allergy Active Results Component Value Reference Range Notes Complete Blood Count Auto Di ff Reviewed date:04/09/2024 10:38:42 PM Interpretation: Performing Lab:[facility], [address] [place] [address] Notes/Report: White Blood Count 5.2 4.8-10.8 X10*3/uL [...] Panel Reviewed date:04/04/2024 01:40:57 PM Interpretation: Performing Lab:[address] [address] Notes/Report: Bilirubin Total 0.2 0.0-1.0 mg/dL Bilirubin Direct < 0.2 0.0-0.5 mg/dL Aspartate Amino Transferase 22 5-31 U/L Alanine Aminotransferase 34 0-31 U/L Total Protein 7.2 6.5-8.0 g/dL Albumin Level 3.7 3.5-5.0 g/dL Alkaline Phosphatase 71 39-117 U/L Dakota AVINA Reviewed date:06/05/2024 05:15:56 PM Interpretation: Performing Lab:[address] [address] Notes/Report: Dakota AVINA SEE NOTE SEE SCA [...] TIMES DAILY WITH MEALS for 30 Active Zngoberrce-DAGB-Xldgci ne 50-325-40 MG TAKE 1 TO 2 [...] She does not smoke nor use a mo significant amounts of alcohol. She does not smoke nor use a mo significant amounts of alcohol. She does not smoke nor use a mo significant amounts of alcohol. She does not smoke nor use a mo significant amounts of alcohol. She does not [...] Status Risk Notes Problem Colon cancer screening (522409529) Colon cancer screening (Z12.11) Active confirmed Problem Irritable bowel syndrome (57136280) Irritable bowel syndrome (K58.9) Active confirmed Problem 65129979 Crohn's disease of both small and large intestine without complication (K50.80) Active confirmed Problem 418459858 Nausea (R11.0) Active confirmed Problem 365890801 Encounter for therapeutic drug level monitoring (Z51.81) Active confirmed Problem Dysphagia (94390545) Dysphagia (R13.10) Active confirmed Problem 35632924 Crohns disease o f both small and large intestine without complication (K50.80) Active confirmed Problem 647397276 Gastroesophageal reflux disease, esophagitis presence not specified (K21.9) Active confirmed Problem Chronic gastritis (6846200) Chronic gastritis (K29.50) Active confirmed Problem 93435584 Diarrhea, unspecified type (R19.7) Active confirmed Problem 78471881 Crohn''s disease of both small and large intestine without complication (K50.80) Active confirmed Problem 33365898 Erythematous ski n nodule (R22.9) Active confirmed Problem 29312305 Vaginal candidiasis (B37.3) Active confirmed Problem Drug monitoring done (805495520) Encounter for therapeutic drug monitoring (Z51.81) Active confirmed Problem Gastroesophageal reflux disease (disorder) (972078497) Chronic GERD (K21.9) Active confirmed Vital Signs Blood pressure diastolic 11 mm Hg 06/05/2024 Height 65.5 in 06/05/2024 Blood pressure systolic 111 mm Hg 06/05/2024 Weight 267 lbs 06/05/2024 BMI 43.75 kg/m2 06/05/2024 Encounters Encounter Location Date Provider Diagnosis [facility] [address] [place] [phone] 06/05/2024 Emerson Canales Crohn's disease of both small and large intestine without complication K50.80 ; Irritable bowel syndrome K58.9 ; Chronic GERD K21.9 and Vaginal candidiasis B37.3 [facility] [address] [place] [phone] 10/24/2024 Emerson Canales [facility] [address] [place] [phone] 12/23/2023 Emerson Canales [facility] [address] [place] [phone] 02/03/2024 Emerson Canales [facility] [address] [place] [phone] 02/03/2024 Emerson Canales Crohn''s disease of both small and large intestine without complication K50.80 and Encounter for therapeutic drug monitoring Z51.81 [facility] [address] [place] [phone] 05/01/2024 Emerson Canales [facility] [address] [place] [phone] 06/05/2024 Emerson Canales [facility] [address] [place] [phone] 06/14/2024 Emerson [facility] [address] [place] [address] 06/22/2024 Emerson Canales Assessments Encounter Date Diagnosis [...] questions I can be of assistance with. Setphie was comfortable with this plan. Thank you [...] Date CHEM 7 PROFILE 07/10/2020 LIVER PROFILE 12/11/2017 LIVER PROFILE 11/03/2015 LIVER PROFILE 01/24/2018 LIVER PROFILE 05/23/2019 LIVER PROFILE 07/11/2017 LIVER PROFILE 07/10/2020 LIVER PROFILE 07/12/2016 LIVER PROFILE 07/15/2016 LIVER PROFILE 04/01/2015 LIVER PROFILE 10/17/2018 LIVER PROFILE 02/03/2024 LIVER PROFILE 01/08/2021 LIVER PROFILE 07/08/2013 LIVER PROFILE 08/13/2021 IRON + IBC (FE) 08/13/2021 CRP 01/08/2021 CRP 01/24/2018 CRP 08/13/2021 VITAMIN B12 AND FOLATE 08/13/2021 CBC w DIFF 07/08/2013 CBC w DIFF 12/11/2017 CBC w DIFF 11/03/2015 CBC w DIFF 05/09/2014 CBC w DIFF 01/08/2021 CBC w DIFF 07/11/2017 CBC w DIFF 01/24/2018 CBC w DIFF 07/10/2020 CBC w DIFF 07/12/2016 CBC w DIFF 07/15/2016 CBC w DIFF 04/01/2015 CBC w DIFF 08/13/2021 CBC w DIFF 10/17/2018 CBC w DIFF 02/03/2024 CBC w/o DIFF 05/23/2019 SED RATE (ESR) 08/13/2021 SED RATE (ESR) 01/08/2021 SED RATE (ESR) 01/24/2018 OTHER REF LAB TEST - MISC 07/12/2016 OTHER REF LAB TEST - MISC 07/15/2016 NUC HIDA SCAN 02/23/2014 PROMETHEUS THIOPURINE METABOLITES (TPMT) 01/24/2018 PROMETHEUS THIOPURINE METABOLITES (TPMT) 07/12/2016 PROMETHEUS THIOPURINE METABOLITES (TPMT) 12/11/2017 PROMETHEUS THIOPURINE METABOLITES (TPMT) 07/11/2017 T SPOT TB 01/02/2019 C DIFFICILE RFLX PCR 08/19/2022 Ferritin 08/13/2021 Prometheus Anser UST 02/03/2024 Prometheus Anser UST 01/08/2021 GI PANEL 08/19/2022 Future Test Test Name Order Date COLONOSCOPY 05/08/2013 UPPER GI ENDOSCOPY 06/08/2018 COLONOSCOPY 06/08/2018 UPPER GI ENDOSCOPY BALLOOON DILATION OF ESOPH 06/30/2023 COLONOSCOPY 06/30/2023 Next Appt Details Provider Name:Emerson Canales , 01/09/2025 01:20:00 PM, [address], [address], [place], [address], Insurance Providers Payer Name Payer Address Payer Phone Subscriber Number Group Number Insured Name Patient Relationship to Insured Coverage Start Date Coverage End Date MEDICARE OF [place] [address] [place] [address] [id number] STEPHIE DORSEY Self - patient is the insured MEDICAID OF [facility] [address] [place] [phone] [id number] STEPHIE DORSEY Self - patient is the insured Medical (General) History Medical History History ICD Code Colonoscopy 07-07-2012 Crohn's colitis-diagnosed in 2000- colonoscopy in 02/2009 at [facility] with diffuse colitis/ileitis-has been treated with Remicade, Humira, and azathioprine in the past at [facility]--Stephie reports that the mesalamines and azathioprine seem to exacerbate her GI symptoms with gas and cramps--however, at those time she is usually having active Crohn's disease symptoms as well---she was hospitalized [place] [facility] [place] for a flareup of the [...] Denies DC,DM,CVA,Lung disease,renal dise ase Anemia--sees Dr. Pulido/Dr. Griffiths--rece [...]
== END 2024-10-30 14:19 | disposition home or self-care (01) ==
LOC: HO.HPS 13:51
PROVIDERS: PCP Internal Medicine; Visit Provider Internal Medicine
DX: G47.33 Obstructive sleep apnea (adult) (pediatric) (principal); J45.909 Unspecified asthma, uncomplicated; E66.01 Morbid (severe) obesity due to excess calories; J30.9 Allergic rhinitis, unspecified
CPT/HCPCS: 99213

== ENCOUNTER → 2024-10-30 13:50 | Outpatient (BNVA) | payer MEDICARE, MEDICAID, SELFPAY | PROVIDERS: PCP Internal Medicine; Visit Provider Internal Medicine | DX: G47.33 Obstructive sleep apnea (adult) (pediatric) (principal); J45.909 Unspecified asthma, uncomplicated; E66.01 Morbid (severe) obesity due to excess calories; Z68.39 Body mass index [BMI] 39.0-39.9, adult; Z79.51 Long term (current) use of inhaled steroids; Z79.899 Other long term (current) drug therapy | CPT/HCPCS: 99212 ==

== ENCOUNTER 2024-11-29 13:47 | Outpatient (AMB) | payer MEDICARE, MEDICAID, SELFPAY ==
--- OUTSIDE RECORDS SUMMARY | 2024-11-29 13:53 | XMS_ITS | Clinical Summary ---
Author Organization [address] [facility] Address [address] [place] [address] Phone Care Team Providers Care Sandwich Hand Name Role Phone Katrina Sherwood MD Primary Care Provider +1- [phone] Allergies Active Allergy Reactions Criticality Noted Date [...] 8:30 AM EDT Office Visit Orthopedic Surgery [facility] [address] [phone] Juan Moody DPM Lumbosacral radiculopathy (Primary Dx); [...] 1:15 PM EDT Office Visit Orthopedic Surgery [facility] [address] [phone] Juan Moody DPM [address] [address] Health Maintenance Due Date Last Done Comments Breast Cancer Screening 1975 Colorectal Cancer Screening: Colonoscopy 03/23/2022 HIV Screening 03/23/2022 Hepatitis C Screening 03/23/2022 Medicare Annual Wellness Visit 03/23/2022 Social Influencers of Health Screening 03/23/2022 COVID-19 Vaccine ( season) 2023 08/19/2020, 07/11/2020 Depression Screening 04/25/2024 Influenza Vaccine (#1) 2024 , 05/07/2021, 12/24/2020, Additional history exists Cervical Cancer [...] * Cervical Cancer Screening: HPV (11/09/2021) Pathologist [facility] Cervical Cancer Screening: HPV abstracted Historical Provider HEALTH MAINTENANCE Final Result from Last 3 Months or Most Recently Relevant to Health Maintenance Insurance [place]ICA[place] - [place] MEDICARE Care Teams Sandwich Hand Relationship Specialty Start Date End Date Kaela, MD Katrina [address] [phone] PCP - General Internal Medicine 01/02/14
--- OUTSIDE RECORDS SUMMARY | 2024-11-29 13:53 | XMS_ITS | Patient Health Record ---
Author Organization [facility] Address [address] [place] [address] Care Team Providers Care Guide Dog Mobility Instructor Name Role Phone John MANCINI, Brisa Primary Care Provider Unavail able Emerson Canales Unavailable [phone] Allergies Allergen (clinical drug ingredient) Drug/Non Drug Allergy documented on EMR Reaction Allergy Type Onset Date Status vancomycin Vancomycin HCl Unknown Drug Allergy A ctive ciprofloxacin cipro (uncoded) Unknown Allergy Active Results Component Value Reference Range Notes Complete Blood Count Auto Di ff Reviewed date:04/09/2024 10:38:42 PM Interpretation: Performing Lab:[facility], [address] [place] [address] Notes/Report: White Blood Count 5.2 4.8-10.8 X10*3/uL [...] Panel Reviewed date:04/04/2024 01:40:57 PM Interpretation: Performing Lab:[address] [address] Notes/Report: Bilirubin Total 0.2 0.0-1.0 mg/dL Bilirubin Direct < 0.2 0.0-0.5 mg/dL Aspartate Amino Transferase 22 5-31 U/L Alanine Aminotransferase 34 0-31 U/L Total Protein 7.2 6.5-8.0 g/dL Albumin Level 3.7 3.5-5.0 g/dL Alkaline Phosphatase 71 39-117 U/L Dakota AVINA Reviewed date:06/05/2024 05:15:56 PM Interpretation: Performing Lab:[address] [address] Notes/Report: Dakota AVINA SEE NOTE SEE SCA [...] TIMES DAILY WITH MEALS for 30 Active Bpklywedzk-BACF-Ncpeyt ne 50-325-40 MG TAKE 1 TO 2 [...] She does not smoke nor use a vt significant amounts of alcohol. She does not smoke nor use a vt significant amounts of alcohol. She does not smoke nor use a vt significant amounts of alcohol. She does not smoke nor use a vt significant amounts of alcohol. She does not [...] Status Risk Notes Problem Colon cancer screening (858989390) Colon cancer screening (Z12.11) Active confirmed Problem Irritable bowel syndrome (24742693) Irritable bowel syndrome (K58.9) Active confirmed Problem 47215742 Crohn's disease of both small and large intestine without complication (K50.80) Active confirmed Problem 735705177 Nausea (R11.0) Active confirmed Problem 702282270 Encounter for therapeutic drug level monitoring (Z51.81) Active confirmed Problem Dysphagia (86892308) Dysphagia (R13.10) Active confirmed Problem 33534158 Crohns disease o f both small and large intestine without complication (K50.80) Active confirmed Problem 513539855 Gastroesophageal reflux disease, esophagitis presence not specified (K21.9) Active confirmed Problem Chronic gastritis (9605642) Chronic gastritis (K29.50) Active confirmed Problem 13724152 Diarrhea, unspecified type (R19.7) Active confirmed Problem 99912013 Crohn''s disease of both small and large intestine without complication (K50.80) Active confirmed Problem 82838149 Erythematous ski n nodule (R22.9) Active confirmed Problem 94327313 Vaginal candidiasis (B37.3) Active confirmed Problem Drug monitoring done (370178126) Encounter for therapeutic drug monitoring (Z51.81) Active confirmed Problem Gastroesophageal reflux disease (disorder) (442863236) Chronic GERD (K21.9) Active confirmed Vital Signs Blood pressure diastolic 11 mm Hg 06/05/2024 Height 65.5 in 06/05/2024 Blood pressure systolic 111 mm Hg 06/05/2024 Weight 267 lbs 06/05/2024 BMI 43.75 kg/m2 06/05/2024 Encounters Encounter Location Date Provider Diagnosis [facility] [address] [place] [address] 06/05/2024 Emerson Canales Crohn's disease of both small and large intestine without complication K50.80 ; Irritable bowel syndrome K58.9 ; Chronic GERD K21.9 and Vaginal candidiasis B37.3 [facility] [address] [place] [address] 12/23/2023 Emerson Canales [facility] [address] [place] [address] 02/03/2024 Emerson Canales [facility] [address] [place] [address] 02/03/2024 Emerson Canales Crohn''s disease of both small and large intestine without complication K50.80 and Encounter for therapeutic drug monitoring Z51.81 [facility] [address] [place] [address] 05/01/2024 Emerson Canales [facility] [address] [place] [address] 06/05/2024 Emerson Canales [facility] [address] [place] [address] 06/14/2024 Emerson Canales [facility] [address] [place] [phone] 06/22/2024 Emerson [facility] [address] [place] [address] 10/24/2024 Emerson Canales Assessments Encounter Date Diagnosis (ICD Code) Assessment Notes Treatment Notes Treatment Clinical Notes Section Notes 06/05/2024 Irritable bowel syndrome (ICD-10 - K58.9) Start using 2 Metamucil fiber pills once or twice every day with a lot of water. Overall, Stephei appears well from a GI standpoint. It [...] Name:Emerson Canales , 01/09/2025 01:20:00 PM, [address] [facility], [address], [place], [address], Insurance Providers Payer Name Payer Address Payer Phone Subscriber Number Group Number Insured Name Patient Relationship to Insured Coverage Start Date Coverage End Date MEDICARE OF [place] [address] [place] [address] [id number] STEPHIE DORSEY Self - patient is the insured MEDICAID OF [facility] [address] [place] [phone] [id number] STEPHIE DORSEY Self - patient is the insured Medical (General) History Medical History History ICD Code Colonoscopy 07-07-2012 Crohn's colitis-diagnosed in 2000- colonoscopy in 02/2009 at [facility] with diffuse colitis/ileitis-has been treated with Remicade, Humira, and azathioprine in the past at [facility]--Stephie reports that the mesalamines and azathioprine seem to exacerbate her GI symptoms with gas and cramps--however, at those time she is usually having active Crohn's disease symptoms as well---she was [place] [facility] [place] for a flareup of the [...] 01/2019 for the Crohn's and psoriasis Denies [place],DM,CVA,Lung disease,renal dise ase Anemia--sees Dr. Pulido/Dr. Griffiths--rece [...]
--- OUTSIDE RECORDS SUMMARY | 2024-11-29 13:53 | XMS_ITS | Encounter Summary ---
Author Organization [employer] Address [address] [place] [address] Care Team Providers Care Cyanide Pot Hardener Name Role Phone Ceci Billings MD Primary Care Provide r Encounter Details Date Type Department Care Team (Late st Contact Info) Description 08/15/2024 Orders Only [facility] [address] [place] [address] Provider, MD Chito Social History Tobacco Use [...] documented as of this encounter Care Teams Cyanide Pot Hardener Relationship Specialty Start Date End Date Ceci Billings MD [address] [place] [id number] PCP - General Family Medicine 06/02/20 documented as of this encounter
[2024-11-29 13:54] VITALS: BP 90/62; PULSE 73; BMI 39.8
--- NOTE | 2024-11-29 13:54 | A.OFFVIS_ITS ---
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 Required: No Allergies ciprofloxacin (From CIPRO) Allergy (Severe, Verified 11/29/24 13:55) GI PAIN vancomycin Allergy (Severe, Verified 11/29/24 13:55) Anaphylaxis Medication List - Last Reconciled 11/29/24 by FE Mcmahan albuterol sulfate 2.5 mg inhalation QID PRN albuterol sulfate 90 mcg/actuation (ProAir HFA) 2 puffs inhalation Q6H PRN clonazepam 0.5 mg PO DAILY PRN cyclobenzaprine 10 mg PO TID PRN dicyclomine 20 mg PO TID fexofenadine (Amada Allergy) 180 mg PO DAILY fluconazole 150 mg PO Q3D PRN fluticasone furoate 100 mcg/actuation (Arnuity Ellipta) 1 inh inhalation DAILY fluticasone propionate 110 mcg/actuation 110 mcg inhalation BID 30 days gabapentin mg PO 3XD galcanezumab-gnlm (Emgality Pen) 120 mg subcut QMONTH levonorgestrel (Mirena) 20 mcg intrauterine DAILY montelukast 10 mg PO BEDTIME 30 days nabumetone 500 mg PO BID pantoprazole 40 mg PO DAILY propranolol 10 mg PO BID sertraline 100 mg PO DAILY ustekinumab (Stelara) 90 mg subcut Q8W zolpidem (Ambien) 10 mg PO BEDTIME HPI HPI 1 yr follow up: Details: Windy is a 49-year-old male past medical history of morbid obesity, sleep apnea, palpitations, brief SVE on Holter monitor who now presents for follow-up. Today she reports that she continues to have heart palpitations which can occur randomly and on average twice a month. More recent episodes have lasted 10-15 minutes. She finds that if she puts her face in ice water her heartbeat will slow down. No known triggers to when this will occur. She is taking her propranolol for her migraine headaches. No presyncope, syncope, falls. No rodrigue rtness of breath, chest discomfort, PND, orthopnea or edema. She does only light physical activity at home. She has discomfort in her lower extremities that she believes is from her varicose veins. She describes what sounds like vein ablation in the past. She is not consuming any caffeinated beverages and maintains good hydration. [facility] Medical History COVID Somnolence, daytime TANA (obstructive sleep apnea) Allergic rhinitis Bronchial asthma Trigger finger Dysuria Obesity, morbid, BMI 40.0-49.9 Encounter for Papanicolaou smear for cervical cancer screening Asthma Insomnia Crohn's disease Surgical History History of removal of laparoscopic gastric banding device Hx of hand surgery History of carpal tunnel surgery Hx of laparoscopic gastric banding Hx of breast reduction, elective Family History Father HIV (human immunodeficiency virus infection) Mother Hypertension Maternal Grandmother Diabetes mellitus Maternal Grandfather Hypertension Lymphoma Paternal Grandfather No problems noted. 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/ Gender identity: Female Female Reproductive History Menstrual Age of Menarche: 13 Review of Systems Const All systems reviewed & are unremarkable except as noted in HPI and below ENT Denies dizziness Card Denies chest pain, Denies chest pain at rest, Denies chest pain with activity, Denies rapid heart rate, Denies pedal edema, Denies edema, Denies leg edema, Denies lightheadedness, Denies palpitations, Denies dyspnea, Denies dyspnea on exertion and Denies orthopnea Resp Denies cough, Denies dyspnea and Denies dyspnea on exertion GI Denies hematochezia and Denies change in stool character Musc Denies abnormal gait, Denies limited range of motion, Denies muscle cramps, Denies muscle weakness, Denies numbness, Denies radiating pain into limb, Denies stiffness and Denies tingling Neuro Denies abnormal gait, Denies dizziness, Denies numbness and Denies tingling Endo Denies palpitations Physical Exam Vital Signs: Last Vital Signs Pulse 73 11/29/24 13:54 BP 90/62 11/29/24 13:54 BMI result Body Mass Index 39.8 Const General: cooperative, healthy appearing, comfortable and no acute distress Orientation/consciousness: patient oriented x3 Neck Neck: Yes normal visual inspection Resp Effort & Inspection: normal respiratory effort Auscultation: clear to auscultation bilaterally, no crackles, no rales, no rhonchi and no wheezes Cardio Jugular venous distension: no JVD Rate: regular rate Rhythm: regular rhythm Heart sounds: S1 normal heart sound present, S2 normal heart sound present, no gallops, no murmurs and no rubs Neuro General: patient oriented x3 Extrem General: Yes normal to inspection, No no pedal edema and No calf tenderness Psych Appearance: grossly normal Mental Status: mental status grossly normal Speech and movement: Normal speech and movement present Office Procedures EKG Details: Today, read by me, sinus rhythm, left axis, cant exclude prior anterior infarct, rate 73, Qtc 418ms. 53102-Vbemlqxiemlazeipn, Complete Assessment & Plan Assessment & Plan (1) Heart palpitations: Code(s): R00.2 - Palpitations Category: Medical Plan: Reports of intermittent heart palpitations, fast heart rates that can last several minutes, with recent episodes resolving with some nursing face in ice water. Her description sounds like supraventricular tachycardia, but no recent documentation seen. She did undergo a Holter monitor on 05/16/2023 which showed sinus rhythm, average heart rate 77, rare brief SVE runs, longest 10 beats. Echocardiogram done 05/16/2023 showed EF 65%, normal valves, left atrium mildly dilated, No regional wall motion abnormality. EKG today showing normal sinus rhythm, normal NC, QRS and QTC intervals, rate 73. Will check a cardiac event monitor to try to record her tachycardia. Once strips obtained SVT confirmed will plan to send to electrophysiology for ablation. Continue propranolol at current dose. Unable to titrate due to low blood pressure readings. Continue to avoid caffeine, stay well hydrated. ER care for sustained rapid palpitations not relieved by facial ice water submersion. Cardiology office visit 3 months, sooner if needed. (2) PAC (premature atrial contraction): Code(s): I49.1 - Atrial premature depolarization Category: Medical Plan: Short SVE run seen on Holter monitor. (3) Obesity, morbid, BMI 40.0-49.9: Comment: Continues to be obese, has not been able to lose much weight. Code(s): E66.01 - Morbid (severe) obesity due to excess calories Category: Medical Plan: Patient morbidly obese. Weight is down 10 lb in the last year. Applauded on this. Plan Time spent on chart review, documentation, interview and assessment Orders: Orders ECG 30 day event monitor Today I49.1 - Atrial premature depolarization, R00.2 - Palpitations US venous duplex LE BI Today I87.2 - Venous insufficiency (chronic) (peripheral) Coding Level of Care Code Est Pt Level 3 (58883) Complex EM visit Add On G2211 Diagnoses Heart palpitations R00.2 PAC (premature atrial contraction) I49.1 Obesity, morbid, BMI 40.0-49.9 E66.01 CPT Codes EKG - CPT: 02053-Wywqgmrblskdinypq, Complete ([id number]) Time Spent (min) 24
== END 2024-11-29 14:21 | disposition home or self-care (01) ==
PROVIDERS: PCP Internal Medicine; Visit Provider Nurse Practitioner Family
DX: R00.2 Palpitations (principal); I49.1 Atrial premature depolarization; E66.01 Morbid (severe) obesity due to excess calories
CPT/HCPCS: 93010; 99213; G2211

== ENCOUNTER → 2024-11-29 13:47 | Outpatient (BNVA) | payer MEDICAID, SELFPAY | PROVIDERS: PCP Internal Medicine; Visit Provider Nurse Practitioner Family | DX: R00.2 Palpitations (principal); I49.1 Atrial premature depolarization; E66.01 Morbid (severe) obesity due to excess calories | CPT/HCPCS: 93005; 99212 ==

== ENCOUNTER → 2025-01-03 13:58 | Outpatient (REF) | payer MEDICARE, MEDICAID, SELFPAY ==
--- OUTSIDE RECORDS SUMMARY | 2023-08-23 03:30 | XMS_ITS ---
Author Organization [facility] Address [address] [place] [address] Care Team Providers Care Putty Tinter Maker Name Role Phone Brisa Lopez MD Primary Care Provider Unavail óscar Canales Emerson Unavailable [phone] REASON FOR VISIT crohn's,screening,dysphagia,gerd Problems Problem Type SNOMED Code ICD Code Onset Dates Problem Status W/U Status Risk Notes Problem Chronic gastritis (9088618) Chronic gastritis (K29.50) Active confirmed Problem Gastroesophageal reflux disease (disorder) (651278176) Chronic GERD (K21.9) Active confirmed Encounters Encounter Location Date Provider Diagnosis [facility] [place] [address] [place], [place] [phone] 08/23/2023 Emerson Canales Crohn's disease of both [...] Next Appt Details Provider Name:Emerson Canales , 01/09/2025 01:20:00 PM, [address] [facility], [address] [facility], [place], [address], Progress Notes * STEPHIE LLOYDDOB: 7 (49 yo F)Acc No.[id number]:08/23/2023 EGD and COL/MAC Patient: STEPHIE POLLACK Provider: Olu Canales MD :1975 A ge:47 Y S ex:Female Date:08/23/2023 Address:[address] [place], [place] [phone] Pcp:Brisa Lopez MD Subjective: * Chief Complaints: * 1 . [...] Procedure Codes: 4 5380 COLONOSCOPY AND BIOPSY, [address] UPPER GI ENDOSCOPY, BIOPSY, Modifiers: 51 * * The named appointment provid er may or may not be the originator of this progress note, and it is not deemed complete until electronically signed by the appointment provider. Sign off status: Pending * Provider: Olu Canales MD Date: 0 08/23/2023 Generated for Arpit ribeiro/Enmanuel/eTransmitting on: 0 01/03/2025 05:50 PM EDT
--- OUTSIDE RECORDS SUMMARY | 2024-02-07 05:50 | XMS_ITS ---
Author Organization [facility] Address [address] [place] [address] Care Team Providers Care Field Marketer Name Role Phone Brisa Lopez MD Primary Care Provider Unavail Emerson Mims [phone] REASON FOR VISIT Patient presents today for GERD, CROHN'S. Encounters Encounter Location Date Provider Diagnosis [facility] [address] [place] [address] [place] [phone] 02/07/2024 Emerson Canales Plan Of Treatment Next Appt Details Provider Name:Emerson Canales , 01/09/2025 01:20:00 PM, [address] [facility], [address], [place], [address], Progress Notes * STEPHIE LLOYDDOB: 7 (49 yo F)Acc No.[id number]:02/07/2024 Progress Notes Patient: Halley MACKSarai STEPHIE Provider: Olu Canales MD :1975 A ge:48 Y S ex:Female Date:02/07/2024 Address:[address] [place] [address] Pcp:Brisa Lopez MD Subjective: * Chief Complaints: [...] Date: 1 Generated for Arpit ribeiro/Enmanuel/Daniel on: 0 01/03/2025 05:50 PM EDT
--- NOTE | 2025-01-03 14:00 | HM_ITS ---
Cardiac event monitor Indication: Palpitations Technique: Patient was hooked up to cardiac event monitor from 01/04/2025 to 02/03/2025. Total wear time was 14.7 days Findings: Baseline was normal sinus rhythm 99.46% of the time. Average heart rate of 78 beats per minute sinus rhythm with slowest heart rate of 50 beats per minute sinus bradycardia and a maximum heart rate of 131 beats per minute sinus tachycardia. There was rare PVCs noted with total burden of 0.5%. No tachyarrhythmias noted. Patient triggered 16 strips with 1 symptom of chest pressure tightness correlating with sinus tachycardia. Other times no symptoms specified but 1 of them correlated with isolated PVCs. Conclusion: 1. Baseline was normal sinus rhythm with no pauses 2. Rare PVCs noted 3. Patient reported 1 symptom and associated strip shows sinus tachycardia. The other triggered strips with no symptoms mentioned correlated once with PVC MTDD
--- OUTSIDE RECORDS SUMMARY | 2025-01-03 17:50 | XMS_ITS | Patient Health Record ---
Author Organization [facility] Address [address] [place] [address] Care Team Providers Care Electrocardiograph Technician Name Role Phone John MANCINI, Brisa Primary Care Provider Unavail able mEerson Canales Unavailable [phone] Allergies Allergen (clinical drug ingredient) Drug/Non Drug Allergy documented on EMR Reaction Allergy Type Onset Date Status vancomycin Vancomycin HCl Unknown Drug Allergy A ctive ciprofloxacin cipro (uncoded) Unknown Allergy Active Results Component Value Reference Range Notes Complete Blood Count Auto Di ff Reviewed date:04/09/2024 10:38:42 PM Interpretation: Performing Lab:[facility], [address] [place] [address] Notes/Report: White Blood Count 5.2 4.8-10.8 X10*3/uL [...] Panel Reviewed date:04/04/2024 01:40:57 PM Interpretation: Performing Lab:[address] [address] Notes/Report: Bilirubin Total 0.2 0.0-1.0 mg/dL Bilirubin Direct < 0.2 0.0-0.5 mg/dL Aspartate Amino Transferase 22 5-31 U/L Alanine Aminotransferase 34 0-31 U/L Total Protein 7.2 6.5-8.0 g/dL Albumin Level 3.7 3.5-5.0 g/dL Alkaline Phosphatase 71 39-117 U/L Dakota AVINA Reviewed date:06/05/2024 05:15:56 PM Interpretation: Performing Lab:[address] [address] Notes/Report: Dakota AVINA SEE NOTE SEE SCA [...] as needed Orally Once a day Active Pantoprazole Sodium 40 MG TAKE 1 TABLET BY MOUTH DAILY for 30 Active Zepbound 2.5 MG/0.5ML 0.5 mL Subcutaneou s for 30 day(s) Active Bentyl 10 MG 1 tablet Orally 1-2 QID prn abdominal cramps/discomfort 07/24/2013 Active hydrOXYzine Pamoate 25 MG as directed [...] TIMES DAILY WITH MEALS for 30 Active Osffpglmxo-UGHJ-Yafqah ne 50-325-40 MG TAKE 1 TO 2 TABLETS BY MOUTH EVERY 4 HOURS NEEDED. NOT TO EXCEED 6 TABLETS PER 24 HOURS Oral for 5 Active Gabapentin 400 MG Oral for 30 Days Active Diphenoxylate-Atropine 0 TAKE 1 TO 2 TABLETS BY MOUTH FOUR TIMES DAILY NEEDED FOR DIARRHEA only prn-rare Active Immunizations Vaccine Route Administration Date Status [...] She does not smoke nor use a tx significant amounts of alcohol. She does not smoke nor use a tx significant amounts of alcohol. She does not smoke nor use a tx significant amounts of alcohol. She does not smoke nor use a tx significant amounts of alcohol. She does not smoke nor use a tx significant amounts of alcohol. She does not smoke nor use a tx significant amounts of alcohol. She does not [...] Status Risk Notes Problem Colon cancer screening (759204605) Colon cancer screening (Z12.11) Active confirmed Problem Irritable bowel syndrome (30829181) Irritable bowel syndrome (K58.9) Active confirmed Problem 56323323 Crohn's disease of both small and large intestine without complication (K50.80) Active confirmed Problem 409668742 Nausea (R11.0) Active confirmed Problem 565603937 Encounter for therapeutic drug level monitoring (Z51.81) Active confirmed Problem Dysphagia (14626463) Dysphagia (R13.10) Active confirmed Problem 77999047 Crohns disease o f both small and large intestine without complication (K50.80) Active confirmed Problem 913327437 Gastroesophageal reflux disease, esophagitis presence not specified (K21.9) Active confirmed Problem Chronic gastritis (1519404) Chronic gastritis (K29.50) Active confirmed Problem 09113876 Diarrhea, unspecified type (R19.7) Active confirmed Problem 62356434 Crohn''s disease of both small and large intestine without complication (K50.80) Active confirmed Problem 18239810 Erythematous ski n nodule (R22.9) Active confirmed Problem 16356206 Vaginal candidiasis (B37.3) Active confirmed Problem Drug monitoring done (481585049) Encounter for therapeutic drug monitoring (Z51.81) Active confirmed Problem Gastroesophageal reflux disease (disorder) (955251095) Chronic GERD (K21.9) Active confirmed Vital Signs Blood pressure diastolic 11 mm Hg 06/05/2024 Height 65.5 in 06/05/2024 Blood pressure systolic 111 mm Hg 06/05/2024 Weight 267 lbs 06/05/2024 BMI 43.75 kg/m2 06/05/2024 Encounters Encounter Location Date Provider Diagnosis [facility] [address] [place] [address] 06/05/2024 Emerson Caanles Crohn's disease of both small and large intestine without complication K50.80 ; Irritable bowel syndrome K58.9 ; Chronic GERD K21.9 and Vaginal candidiasis B37.3 [facility] [address] [place] [address] 02/03/2024 Emerson Canales [facility] [address] [place] [address] 02/03/2024 Emerson Canales Crohn''s disease of both small and large intestine without complication K50.80 and Encounter for therapeutic drug monitoring Z51.81 [facility] [address] [place] [address] 05/01/2024 Emerson Canales [facility] [address] [place] [phone] 06/05/2024 Emerson Canales [facility] [address] [place] [address] 06/14/2024 Emerson Canales [facility] [address] [place] [phone] 06/22/2024 Emerson Canales [facility] [address] [place] [phone] 10/24/2024 Emerson Canales Assessments Encounter Date Diagnosis [...] Name:Emerson Canales , 01/09/2025 01:20:00 PM, [address], [address], [place], [address], Insurance Providers Payer Name Payer Address Payer Phone Subscriber Number Group Number Insured Name Patient Relationship to Insured Coverage Start Date Coverage End Date MEDICARE OF [place] [address] [place] [address] [phone] [id number] STEPHIE DORSEY Self - patient is the [facility] [address] [place] [address] [id number] STEPHIE DORSEY Self - patient is the insured Medical (General) History Medical History History ICD Code Colonoscopy 07-07-2012 Crohn's colitis-diagnosed in 2000- colonoscopy in 02/2009 at [facility] with diffuse colitis/ileitis-has been treated with Remicade, Humira, and azathioprine in the past at [facility]--Stephie reports that the mesalamines and azathioprine seem to exacerbate her GI symptoms with gas and cramps--however, at those time she is usually having active Crohn's disease symptoms as well---she was hospitalized at [facility] in 06/2013 for a flareup of the [...] 01/2019 for the Crohn's and psoriasis Denies [place],DM,CVA,Lung disease,renal dise ase Anemia--sees Dr. Pulido/Dr. Griffiths--rece [...]
== END ==
LOC: HO.CARD 13:58
PROVIDERS: PCP Internal Medicine; Visit Provider Nurse Practitioner Family
DX: I49.1 Atrial premature depolarization (principal); R00.2 Palpitations
CPT/HCPCS: 93270

== ENCOUNTER → 2025-01-03 14:00 | Outpatient (BNV) | payer MEDICARE, MEDICAID, SELFPAY | PROVIDERS: PCP Internal Medicine; Visit Provider Internal Medicine Cardiovascular Disease | DX: I49.3 Ventricular premature depolarization (principal); R00.0 Tachycardia, unspecified | CPT/HCPCS: 93272 ==

== ENCOUNTER 2025-01-18 09:25 | Outpatient (AMB) | payer MEDICARE, MEDICAID, SELFPAY ==
--- OUTSIDE RECORDS SUMMARY | 2023-08-23 03:30 | XMS_ITS ---
Author Organization [facility] Address [address] [place] [phone] Care Team Providers Care Sterile Supervisor Name Role Phone Ceci Blackburn M.D. Primary Care Provider Lise johnson Emerson Canales Unavailable [phone] REASON FOR VISIT crohn's,screening,dysphagia,gerd Problems Problem Type SNOMED Code ICD Code Onset Dates Problem Status W/U Status Risk Notes Problem Chronic gastritis (9542152) Chronic gastritis (K29.50) Active confirmed Problem Gastroesophageal reflux disease (disorder) (792086796) Chronic GERD (K21.9) Active confirmed Encounters Encounter Location Date Provider Diagnosis [facility] [place] [address] [place] [phone] 08/23/2023 Emerson Canales Crohn's disease of both [...] 09:10:00 AM, [address], [address], [place], [address], Progress Notes * STEPHIE DORSEYDOB: 7 (49 yo F)Acc No.[id number]:08/23/2023 EGD and COL/MAC Patient: STEPHIE POLLACK Provider: Olu Canales MD :1975 A ge:47 Y S ex:Female Date:08/23/2023 Address:[address] [place], [place] [phone] Pcp:Ceci Blackburn M.D. Subjective: * Chief Complaints: [...] Procedure Codes: 4 5380 COLONOSCOPY AND BIOPSY, [address]27 UPPER GI ENDOSCOPY, BIOPSY, Modifiers: 51 * * The named appointment provid er may or may not be the originator of this progress note, and it is not deemed complete until electronically signed by the appointment provider. Sign off status: Pending * Provider: Olu Canales MD Date: 0 08/23/2023 Generated for Arpit ribeiro/Enmanuel/eTransmitting on: 0 01/18/2025 10:17 AM EDT
--- OUTSIDE RECORDS SUMMARY | 2024-02-07 05:50 | XMS_ITS ---
Author Organization [facility] Address [address] [place] [phone] Care Team Providers Care Natural Resources Technician Name Role Phone Ceci Blackburn M.D. Primary Care Provider Emerson Schwartz [phone] REASON FOR VISIT Patient presents today for GERD, CROHN'S. Encounters Encounter Location Date Provider Diagnosis [facility] [address] [facility] [address] [place] [phone] 02/07/2024 Emerson Canales Plan Of Treatment Next Appt Details Provider Name:Emerson Canales , 07/30/2025 09:10:00 AM, [address] [place] [address], Suite [facility], [place], [address], Progress Notes * STEPHIE DORSEYDOB: [birth year] (49 yo F)Acc No.[id number]:02/07/2024 Progress Notes Patient: Halley STEPHIE NICK Provider: Olu Canales MD :1975 A ge:48 Y S ex:Female Date:02/07/2024 Address:[address] [place], [place] Pcp:Ceci Blackburn M.D. Subjective: * Chief Complaints: [...] 1 Generated for Arpit ribeiro/Enmanuel/Daniel on: 0 01/18/2025 10:16 AM EDT
--- OUTSIDE RECORDS SUMMARY | 2025-01-09 09:20 | XMS_ITS ---
Author Organization [facility] Address [address] [place] [id number] Care Team Providers Care Master [employer] Name Role Phone Ceci Blackburn M.D. Primary Care Provider Emerson Schwartz Unavailable [phone] Allergies Allergen (clinical drug ingredient) Drug/Non Drug Allergy documented on EMR Reaction Allergy Type Onset Date Status vancomycin Vancomycin HCl Unknown Drug Allergy A ctive ciprofloxacin cipro (uncoded) Unknown Allergy Active REASON FOR VISIT Patient presents today for gerd crohns Medications Medication SIG (Take, Route, Frequency, Duration) Notes Start Date End Date Status Fexofenadine HCl 180 MG TAKE 1 TABLET BY MOUTH EVERY DAY NEEDED Oral for 90 Days Active clonazePAM 0.5 MG Oral for 30 Days Active Montelukast Sodium 10 MG TAKE 1 TABLET BY MOUTH EVERY NIGHT AT BEDTIME NEEDED FOR RHINITIS Oral for 90 Days Active Sertraline HCl 100 MG TAKE 1 TABLET BY MOUTH DAILY Oral for 30 Days Active Zolpidem Tartrate 10 MG TAKE 1 TABLET BY MOUTH AT BEDTIME NEEDED Oral for 30 Days Active Pantoprazole Sodium 40 MG Oral for 90 Days Active Dicyclomine HCl 20 MG Oral for 30 Days Active Stelara 90 MG/ML INJECT CONTENTS OF 1 SYRINGE UNDER THE SKIN EVERY 4 WEEKS Subcutaneous for 28 Days Active Nabumetone 500 MG Oral for 30 Days Active Gabapentin 400 MG Oral for 30 Days Active Gabapentin 600 MG Oral for 30 Days Active Emgality 120 MG/ML Subcutaneous for 28 Days For headache Active Propranolol HCl 20 MG Oral for 90 Days Active Arnuity Ellipta 100 MCG/ACT INHALE 1 PUFF BY MOUTH DAILY. RINSE MOUTH WITH WATER AFTER USE FOR AFTERTASTE AND INCIDENCE OF CANDIDIASIS. DO NOT SWALLOW Inhalation for 30 Days Active Albuterol Sulfate HFA 108 (90 Base) MCG/ACT INHALE 2 PUFFS BY MOUTH EVERY 4 TO 6 HOURS NEEDED FOR SHORTNESS OF BREATH OR WHEEZING Inhalation for 16 Days Active Stelara 90 MG/ML 1 injection every 4 weeks Subcutaneous Every 4 weeks for 28 days Active Pantoprazole Sodium 40 MG TAKE 1 TABLET BY MOUTH DAILY for 30 Active Gabapentin 400 MG Oral for 30 Days Active Albuterol Sulfate HFA 108 (90 Base) MCG/ACT Inhalation for 16 Days Active Ondansetron HCl 8 MG TAKE ONE TABLET BY MOUTH EVERY 8 HOURS NEEDED Oral for Not Available Active Dicyclomine HCl 20 MG TAKE 1 TABLET BY MOUTH THREE TIMES DAILY WITH MEALS for 30 PRN Active Propranolol HCl 20 MG TAKE 1 TABLET BY MOUTH EVERY DAY Oral for 90 Active Imodium A-D 2 MG 1 or 2 tablets Orally Every 4 to 6 hours as needed for diarrhea for 30 days PRN 08/14/2022 Active Sertraline HCl 50 MG 1 half tablet Orall y Once a day Active Dicyclomine HCl 10.0 Milligram Take 1 or 2 capsules QID prn abdominal cramps and/or diarrhea Active Vitamin D 2000 UNIT 1 tablet Orally Once a day for 30 day(s) Not-Taking Fexofenadine HCl 180 MG 1 tablet as needed Orally Once a day for 30 day(s) Active Baclofen 20 MG/20ML Intrathecal Three times a day Not-Taking Diphenoxylate-Atropi ne 0 TAKE 1 TO 2 TABLETS BY MOUTH FOUR TIMES DAILY NEEDED FOR DIARRHEA only prn-rare Active Aafgrtgyxl-SBPR-Nbmy eine 50-325-40 MG TAKE 1 TO 2 TABLETS BY MOUTH EVERY 4 HOURS NEEDED. NOT TO EXCEED 6 TABLETS PER 24 HOURS Oral for 5 Not-Taking Ambien 10 MG 1 tablet at bedtime as needed Orally Once a day Active Tylenol 325 MG 1 tablet as needed Orally prn Active Senna PRN Active hydrOXYzine Pamoate 25 MG as directed Orally every 6 hrs Not-Taking Zepbound 2.5 MG/0.5ML 0.5 mL Subcutaneous for 30 day(s) Not-Taking Fluconazole 150 MG 1 tablet Orally Take 1 on Day #1, 1 on Day #2, and 1 on Day #7 for 7 days PRN Active Docusate Sodium 100 MG 1 Orally Twice a day for constipation for 30 days 01/09/2025 Active Metamucil 0.36 GM Take 2 with at least 8 ounces of juice or water Orally Twice a day for constipation for 30 days 01/09/2025 Active MiraLax 17 GM/SCOOP Take 1 measured dose in the cap of the bottle in at least 8 ounces of water or juice Orally Twice a day for constipation for 30 days 01/09/2025 Active Immunizations Vaccine Route Administration Date Status Comme nts Influenza Unknown 01/09/2025 Refused Social History Tobacco Use: Social History [...] Problem Status W/U Status Risk Notes Problem Constipation (29742819) Constipation (K59.00) Active confirmed Vital Signs Temperature 97.2 degrees Fahrenheit 01/10/20 25 Blood pressure systolic 001 mm Hg 01/10/20 25 Blood pressure diastolic 01 mm Hg 025 Height 65.5 in 01/09/2025 Weight 254.2 lbs 01/09/2025 BMI 41.65 kg/m2 01/09/2025 Encounters Encounter Location Date Provider Diagnosis [facility] [address] [facility] [address] [place] [id number] 01/09/2025 Emerson Canales Crohns disease of jaquelin th small and large intestine without complication K50.80 and Constipation K59.00 Assessments Encounter Date Diagnosis (ICD Code) Assessment Notes Treatment Notes Treatment Clinical Notes Section Notes 01/09/2025 Crohns disease of both small and large intestine without complication (ICD-10 - K50.80) Continue the Stelara injections every 4 weeks Overall, Stephie appears well and her Crohn's disease appears to be in clinical remission on the current regimen of Stelara every 4 weeks. I did advise her to continue that as she does not appear to be having any adverse effects from it. I shall check a follow-up trough level to be sure it has reached a therapeutic range on the current regimen. We did review that she will be due for a follow-up colonoscopy for screening in 2028. In regard to the chronic constipation I advised her that she needs to start a daily and regular regimen including MiraLAX, fiber supplement, and another hrli-suc-yluhmnm stool softener such as Colace. I advised her that she needs to do this once or twice a day on an every day basis to see if that would give her relief before we start thinking about giving her something such as Linzess or another medication. I also advised her to stop her dicyclomine as her bloating and cramps are from the constipation and the dicyclomine may very well be worsening the constipation due to its anticholinergic effect of relieving intestinal spasms. I did advise her to continue her daily pantoprazole as that seems to be working well for her. I will plan to see her in 6 months for a follow-up visit but did advise her to certainly contact me prior to that if she has any problems or questions I can be of assistance with. Stephie was comfortable with this plan. Thank you again for allowing me to participate in Stephie's care. I shall continue to keep you advised of her progress. 01/09/2025 Constipation (ICD-10 - K59.00) Start using a Colace stool softener once or twice every day on a regular basis Start using a dose of the Miralax once or twice a day on a daily and regular basis Start using 2 Fiber pills with a big glass of wate or juice once or twice a day on a regular basis. Try to stop using the Dicyclomine. Overall, Stephie appears well and her Crohn's disease appears to be in clinical remission on the current regimen of Stelara every 4 weeks. I did advise her to continue that as she does not appear to be having any adverse effects from it. I shall check a follow-up trough level to be sure it has reached a therapeutic range on the current regimen. We did review that she will be due for a follow-up colonoscopy for screening in 2028. In regard to the chronic constipation I advised her that she needs to start a daily and regular regimen including MiraLAX, fiber supplement, and another irnr-xxr-tbihjgm stool softener such as Colace. I advised her that she needs to do this once or twice a day on an every day basis to see if that would give her relief before we start thinking about giving her something such as Linzess or another medication. I also advised her to stop her dicyclomine as her bloating and cramps are from the constipation and the dicyclomine may very well be worsening the constipation due to its anticholinergic effect of relieving intestinal spasms. I did advise her to continue her daily pantoprazole as that seems to be working well for her. I will plan to see her in 6 months for a follow-up visit but did advise her to certainly contact me prior to that if she has any problems or questions I can be of assistance with. Stephie was comfortable with this plan. Thank you again for allowing me to participate in Stephie's care. I shall continue to keep you advised of her progress. Plan Of Treatment Medication Medication Name Sig Start Date Stop Date Notes Fluconazole 150 MG 1 tablet Orally Take 1 on Day #1, 1 on Day #2, and 1 on Day #7 for 7 days PRN Docusate Sodium 100 MG 1 Orally Twice a day for constipation for 30 days 01/09/2025 Metamucil 0.36 GM Take 2 with at least 8 ounces of juice or water Orally Twice a day for constipation for 30 days 01/09/2025 MiraLax 17 GM/SCOOP Take 1 measured dose in the cap of the bottle in at least 8 ounces of water or juice Orally Twice a day for constipation for 30 days 01/09/2025 Treatment Notes Assessment Notes Crohns disease of both small and large intestine without complication Continue the Stelara injections every 4 weeks Constipation Start using a Colace stool softener once or twice every day on a regular basis Start using a dose of the Miralax once or twice a day on a daily and regular basis Start using 2 Fiber pills with a big glass of wate or juice once or twice a day on a regular basis. Try to stop using the Dicyclomine. Pending Test Test Name Order Date Soniamehdi Rodgers Jeanne 01/09/2025 Next Appt Details Follow Up: Spring 2025, Reas on: Provider Name:Emerson Canales , 07/30/2025 09:10:00 AM, [address] [place] [address] [address], [address], [place], [id number], Progress Notes * STEPHIE DORSEYDOB: [birth year] (49 yo F)Acc No.[id number]:01/09/2025 Progress Notes Patient: C HAVEZ, STEPHIE Provider: Olu Canales MD :1975 A ge:49 Y S ex:Female Date:01/09/2025 Address:[address] [place], [place] [id number] Pcp:Ceci Blackburn M.D. Subjective: * Chief Complaints: * 1 . Patient presents today for gerd crohns. * HPI: i ncontinence: I saw Stephie in follow-up today in regard to her underlying history of Crohn's disease, as well as her other GI issues of gastroesophageal reflux and constipation. I last saw Stephie in May. Since that time she has increased the Stelara injections to every 4 weeks due to a low trough level in March 2024. She has been tolerating that without any symptoms of infection, although she does take a fluconazole for the first couple of days at the time of her injection to prevent a yeast infection that she had been having in the past. The fluconazole seems to work well for her in that regard. She has not been experiencing any diarrhea, hematochezia, abdominal pains other than intermittent abdominal cramps, red or swollen joints, skin rashes, or eye problems. Laboratories in July revealed a hemoglobin of 12.5 with a normal MCV, normal chemistries and renal function, and a normal liver profile. She does continue her daily pantoprazole with good relief of her reflux symptoms. She denies any significant heartburn, dysphagia, anorexia, nausea, nor vomiting. She does complain of significant constipation with upwards of a week at a time without a bowel movement. She has not been using any regular bowel regimen for that other than occasional MiraLAX and stool softeners. She has not tried any regimen on a daily and regular basis. She is still taking dicyclomine upwards of twice a day for abdominal cramps and bloating as well. * Medical History: C olonoscopy 07-07-2012, Crohn's colitis-diagnosed in 2000- colonoscopy in 02/2009 at [facility] with diffuse colitis/ileitis-has been treated with Remicade, Humira, and azathioprine in the past at [facility]- Stephie reports that the mesalamines and azathioprine seem to exacerbate her GI symptoms with gas and cramps- however, at those time she is usually having active Crohn's disease symptoms as well- -she was hospitalized at [facility] in 06/2013 for a flareup of the Crohn's and was treated with several days of IV steroids- restarted on Humira in early June,- increased to every week in 02/2014; she was [...] was switched to a trial of Entyvio infusions- -started in mid-October,- did the 3 infusions in 6 weeks and is scheduled for the first 8 week infusion on 02/23/18. She has had E. nodusum as well. The Entyvio will be changed to Stelara in 01/2019 for the Crohn's and psoriasis, Denies AZ,DM,CVA,Lung disease,renal disease, Anemia- sees Dr. Pulido/Dr. Griffiths- receives IV Iron in the past, Fibromyalgia, Pancreatitis- in 2000- no etiology-GB U/S was neg- also neg. in 12/2012, Colonoscopy 05/21/13- very active colitis c/w Crohn's, negative hepatitis B profile in April of 2013, negative H. pylori serology in 01/2014, Neg GB U/S and Normal HIDA with CCK in 2013, Asthma, Carpal tunnel bilateral, GERD- EGD in 2000- no esophagitis- gastritis with H.pylori, Erythema nodusum- responsive to prednisone, Psoriasis started in 07/2018-? due to Entyvio- -started Methotrexate in 10/2018, but stopped in 2018 when she was started on Stelara instead of the Entyvio- sees Dr. Chu for Dermatology, EGD in 08/2018- moderate-sized hiatal hernia, no esophagitis nor Saleh's esophagus, Colonoscopy in 08/2018-some mild colitis in the left colon, but all biopsies were negative for dysplasia., COVID in 11/2021, Upper endoscopy in July of 2023 revealed a small hiatal hernia, but no evidence of any esophagitis, Saleh's esophagus, esophageal stricture, significant gastritis, H. pylori, nor celiac disease, Colonoscopy in July of 2023 revealed a basically normal appearing colon and terminal ileum. There was no evidence of any active colitis nor polyps. All biopsies from the colon were negative for dysplasia. * Surgical History: B reast reduction , Lap Band in 2008- still in place , Pneumothorax with chest tubes , Lap band removed with improvement in her dysphagia 10/29/2023, Left and right in arm pit areas- removal of benign lumps . * Family History: F ather: , diagnosed with HTN (hypertension). M other: alive. M atealex Grand Father: , lymphoma. M aternal uncle: alive, colitis. No GI malignancy; uncle has colitis and 1st cousin has Crohn's disease, maternal aunt ovarian cancer. No family history of liver cancer. * Social History: T obacco Use: T obacco Use/Smoking P atient is a f ormer smoker, H ow long has it been since you last smoked? > 10 years. D rugs/Alcohol: A lcohol Screen P oints: 0, Interpretation: Negative. M iscellaneous: M arital status: single. Occupation: unemployed. S he does not smoke nor use any significant amounts of alcohol. * Medications: Jeanne Johnson , Notes to Pharmacist: PRN, Taking Tylenol 325 MG Tablet 1 tablet as needed Orally prn , Taking Ambien 10 MG Tablet 1 tablet at bedtime as needed Orally Once a day , Taking Fexofenadine HCl 180 MG Tablet 1 tablet as needed Orally Once a day , Taking Diphenoxylate-Atropine 0 Tablet TAKE 1 TO 2 TABLETS BY MOUTH FOUR TIMES DAILY NEEDED FOR DIARRHEA , Notes to Pharmacist: only prn-rare, Taking Sertraline HCl 50 MG Tablet 1 half tablet Orally Once a day , Taking Dicyclomine HCl 10.0 Milligram Capsule Take 1 or 2 capsules QID prn abdominal cramps and/or diarrhea , Taking Propranolol HCl 20 MG Tablet TAKE 1 TABLET BY MOUTH EVERY DAY Oral , Taking Imodium A-D 2 MG Tablet 1 or 2 tablets Orally Every 4 to 6 hours as needed for diarrhea , Notes to Pharmacist: PRN, Taking Dicyclomine HCl 20 MG Tablet TAKE 1 TABLET BY MOUTH THREE TIMES DAILY WITH MEALS , Notes to Pharmacist: PRN, Taking Gabapentin 400 MG Capsule Oral , Taking Fluconazole 150 MG Tablet 1 tablet Orally Take 1 on Day #1, 1 on Day #2, and 1 on Day #7 , Notes to Pharmacist: PRN, Taking Stelara 90 MG/ML Solution Prefilled Syringe 1 injection every 4 weeks Subcutaneous Every 4 weeks , Taking Pantoprazole Sodium 40 MG Tablet Delayed Release TAKE 1 TABLET BY MOUTH DAILY , Taking Albuterol Sulfate HFA 108 (90 Base) MCG/ACT Aerosol Solution Inhalation , Taking Ondansetron HCl 8 MG Tablet TAKE ONE TABLET BY MOUTH EVERY 8 HOURS NEEDED Oral , Taking Arnuity Ellipta 100 MCG/ACT Aerosol Powder Breath Activated INHALE 1 PUFF BY MOUTH DAILY. RINSE MOUTH WITH WATER AFTER USE FOR AFTERTASTE AND INCIDENCE OF CANDIDIASIS. DO NOT SWALLOW Inhalation , Taking Albuterol Sulfate HFA 108 (90 Base) MCG/ACT Aerosol Solution INHALE 2 PUFFS BY MOUTH EVERY 4 TO 6 HOURS NEEDED FOR SHORTNESS OF BREATH OR WHEEZING Inhalation , Taking Propranolol HCl 20 MG Tablet Oral , Taking Gabapentin 600 MG Tablet Oral , Taking Emgality 120 MG/ML Solution Auto-injector Subcutaneous , Notes to Pharmacist: For headache, Taking Stelara 90 MG/ML Solution Prefilled Syringe INJECT CONTENTS OF 1 SYRINGE UNDER THE SKIN EVERY 4 WEEKS Subcutaneous , Taking Nabumetone 500 MG Tablet Oral , Taking Pantoprazole Sodium 40 MG Tablet Delayed Release Oral , Taking Dicyclomine HCl 20 MG Tablet Oral , Taking Gabapentin 400 MG Capsule Oral , Taking Zolpidem Tartrate 10 MG Tablet TAKE 1 TABLET BY MOUTH AT BEDTIME NEEDED Oral , Taking Montelukast Sodium 10 MG Tablet TAKE 1 TABLET BY MOUTH EVERY NIGHT AT BEDTIME NEEDED FOR RHINITIS Oral , Taking Sertraline HCl 100 MG Tablet TAKE 1 TABLET BY MOUTH DAILY Oral , Taking clonazePAM 0.5 MG Tablet Oral , Taking Fexofenadine HCl 180 MG Tablet TAKE 1 TABLET BY MOUTH EVERY DAY NEEDED Oral , Not-Taking/PRN Zepbound 2.5 MG/0.5ML Solution Auto-injector 0.5 mL Subcutaneous , Not-Taking/PRN hydrOXYzine Pamoate 25 MG Capsule as directed Orally every 6 hrs , Not-Taking/PRN Baclofen 20 MG/20ML Solution Intrathecal Three times a day , Not-Taking/PRN Vitamin D 2000 UNIT Tablet 1 tablet Orally Once a day , Not-Taking/PRN Dwpautifjq-FUCW-Dmblcopk 50-325-40 MG Tablet TAKE 1 TO 2 TABLETS BY MOUTH EVERY 4 HOURS NEEDED. NOT TO EXCEED 6 TABLETS PER 24 HOURS Oral , Medication List reviewed and reconciled with the patient * Allergies: V ancomycin HCl, cipro. Objective: * Vitals: W t:254.2lbs, Ht: 65.5 in, BMI:41.65Index, BP:001/01mm Hg, Temp:97.2, Wt-k.3. Assessment: * Assessment: 1. C rohns disease of both small and large intestine without complication - K50.80 (Primary)? 2. C onstipation - K59.00 Overall, Stephie appears wel l and her Crohn's disease appears to be in clinical remission on the current regimen of Stelara every 4 weeks. I did advise her to continue that as she does not appear to be having any adverse effects from it. I shall check a follow-up trough level to be sure it has reached a therapeutic range on the current regimen. We did review that she will be due for a follow-up colonoscopy for screening in 2028. In regard to the chronic constipation I advised her that she needs to start a daily and regular regimen including MiraLAX, fiber supplement, and another pjuq-npz-diuvkml stool softener such as Colace. I advised her that she needs to do this once or twice a day on an every day basis to see if that would give her relief before we start thinking about giving her something such as Linzess or another medication. I also advised her to stop her dicyclomine as her bloating and cramps are from the constipation and the dicyclomine may very well be worsening the constipation due to its anticholinergic effect of relieving intestinal spasms. I did advise her to continue her daily pantoprazole as that seems to be working well for her. I will plan to see her in 6 months for a follow-up visit but did advise her to certainly contact me prior to that if she has any problems or questions I can be of assistance with. Stephie was comfortable with this plan. Thank you again for allowing me to participate in Stephie's care. I shall continue to keep you advised of her progress. Plan: * Treatment: Notes: Continue the Stelara injections every 4 weeks??2.?Constipation? Notes: Start using a Colace stool softener once or twice every day on a regular basis Start using a dose of the Miralax once or twice a day on a daily and regular basis Start using 2 Fiber pills with a big glass of wate or juice once or twice a day on a regular basis. Try to stop using the Dicyclomine.??3.?Others? Refill Fluconazole Tablet, 150 MG, 1 tablet, Orally, Take 1 on Day #1, 1 on Day #2, and 1 on Day #7, 7 days, 3, Refills 11, Notes to Pharmacist: PRN.?? * Immunizations: Influenza (Not administered - Refused: Patient decision) * Preventive Medicine: Counseling: C are goal follow-up plan: A graciela Normal BMI Follow-up D ietary management education, guidance, and counseling, B AZ management provided Y heather. * Follow Up: Leslie middleton 2025 * * The named appointment provid er may or may not be the originator of this progress note, and it is not deemed complete until electronically signed by the appointment provider. Sign off status: Pending * Provider: Olu Canales MD Date: 01/09/2025 Generated for Arpit ribeiro/Enmanuel/Heatheritting on: 01/18/2025 10:17 AM EDT History and Physical Notes * HPI (History of Present Illness) Category Sub-Category Detail Notes Category Not es incontinence I saw Stephie in follow-up today in regard to her underlying history of Crohn's disease, as well as her other GI issues of gastroesophageal reflux and constipation. I last saw Stephie in May. Since that time she has increased the Stelara injections to every 4 weeks due to a low trough level in March 2024. She has been tolerating that without any symptoms of infection, although she does take a fluconazole for the first couple of days at the time of her injection to prevent a yeast infection that she had been having in the past. The fluconazole seems to work well for her in that regard. She has not been experiencing any diarrhea, hematochezia, abdominal pains other than intermittent abdominal cramps, red or swollen joints, skin rashes, or eye problems. Laboratories in July revealed a hemoglobin of 12.5 with a normal MCV, normal chemistries and renal function, and a normal liver profile. She does continue her daily pantoprazole with good relief of her reflux symptoms. She denies any significant heartburn, dysphagia, anorexia, nausea, nor vomiting. She does complain of significant constipation with upwards of a week at a time without a bowel movement. She has not been using any regular bowel regimen for that other than occasional MiraLAX and stool softeners. She has not tried any regimen on a daily and regular basis. She is still taking dicyclomine upwards of twice a day for abdominal cramps and bloating as well.
--- NOTE | 2025-01-18 09:32 | A.OFFVIS_ITS ---
Vital Signs 01/18/25 09:35 Height 5 ft 8 in Weight 261 lb BMI 39.7 Intake Visit Reasons: OV-B/L knee follow-up Intake Note: Windy is a 49 year old woman who presents today for a follow up visit of her bilateral knee pain after receiving her 3 doses of Euflexxa injections. Patient reports injections done in August found relief for about 3 months. Today she presents with constant pain that is located at the posteiror aspect of kneee, with her left knee being the worse. Allergies ciprofloxacin (From CIPRO) Allergy (Severe, Verified 01/18/25 09:35) GI PAIN vancomycin Allergy (Severe, Verified 01/18/25 09:35) Anaphylaxis HPI HPI OV-B/L knee follow-up: Details: 49-year-old female returns to office today after Euflexxa series. She states the injections were not as helpful and she continues to have discomfort along the anterior and posterior portion of the knee. She has also had steroid injections in the past which are also not as helpful. She is also complaining of ongoing right shoulder pain. She has been doing physical therapy with continued discomfort. [facility] Medical History COVID Somnolence, daytime TANA (obstructive sleep apnea) Allergic rhinitis Bronchial asthma Trigger finger Dysuria Obesity, morbid, BMI 40.0-49.9 Encounter for Papanicolaou smear for cervical cancer screening Asthma Insomnia Crohn's disease Surgical History History of removal of laparoscopic gastric banding device Hx of hand surgery History of carpal tunnel surgery Hx of laparoscopic gastric banding Hx of breast reduction, elective Family History Father HIV (human immunodeficiency virus infection) Mother Hypertension Maternal Grandmother Diabetes mellitus Maternal Grandfather Hypertension Lymphoma Paternal Grandfather No problems noted. 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 Tenderness along the medial and lateral joint line. Full ROM with crepitus. Negative Ivan?s. No ligamentous laxity. NVI. Rt shoulder normal to inspection. Tenderness over the bicipital groove and along deltoid region of the shoulder. FF to 175, ER to 90, IR to S1. 5/5 RTC strength, negative dhillon, cross body abduction. NVI. Office Procedures AMB Joint Injection/Aspiration Joint Injection/Aspiration Primary Site: right shoulder Prep: site was prepped using aseptic technique, ethochloride spray was applied and injection warnings given Injected: 40 mg of, with 3 mL of, 1% plain lidocaine, 0.25% bupivacaine and in the subcromial space Approach Used: posterolateral Coding 05934 - Glenohumeral/Tronchanteric Bursa/Intraarticular Procedure code (CPT) selection complete Assessment & Plan Assessment & Plan (1) Patellofemoral arthritis of right knee: Comment: Painful when she walks her treadmill. Is awaiting approval to try gel discussed considering exercise bike. Code(s): M17.11 - Unilateral primary osteoarthritis, right knee Category: Medical (2) Osteoarthritis of right AC (acromioclavicular) joint: Code(s): M19.011 - Primary osteoarthritis, right shoulder Category: Medical Plan We discussed options for her knees and I think the option at this point that may be beneficial would be a geniculate injection. I did place a referral as she does have an appointment to see them next week. We also discussed the more of her shoulder and given she continues to have discomfort despite physical therapy and anti-inflammatories I did offer her a steroid injection which she is interested in. The right shoulder was injected with steroid which the patient tolerated well. She will continue with activities as tolerated and if symptoms persist or worsen with the shoulder she can contact me discuss otherwise follow up as needed. Orders: Referrals Pain Management Referral M17.11 - Unilateral primary osteoarthritis, right knee Coding Level of Care Code Est Pt Level 3 (37938) Complex EM visit Add On G2211 Diagnoses Patellofemoral arthritis of right knee M17.11 Osteoarthritis of right AC (acromioclavicular) joint M19.011 CPT Codes Coding - Joint 7: 14310 - Glenohumeral/Tronchanteric Bursa/Intraarticular ([id number])
[2025-01-18 09:35] VITALS: BMI 39.7
--- OUTSIDE RECORDS SUMMARY | 2025-01-18 10:16 | XMS_ITS | Encounter Summary ---
Author Organization [employer] Address [address] [place] [address] Care Team Providers Care Development Professional Name Role Phone Ceci Billings MD Primary Care Provide r Reason for Visit * Reason Onset Date Comments Prior Authorization 12/28/2024 Encounter Details Date Type Department Care Team (Late st Contact Info) Description 12/28/2024 Telephone [facility] [address] [place] [address] Ceci Billings MD [address] [place] [address] Prior Authorization Social History Tobacco Use Types Packs/Day Years Used Date Smoking Tobacco: Never Passive Smoke Exposure: Never Smokeless Tobacco: Never Alcohol Use Standard Drinks/Week Comments Never 0 (1 standard drink = 0.6 oz pur e alcohol) Depression Answer Date Recorded Patient Health Questionnaire-9 Score 4 12/20/2024 Patient Health Questionnaire-9 Score 4 12/20/2024 Last PHQ-9: Questionnaire Data Not on file 0 12/20/2024 Housing Stability Answer Date Recorded What is [...] Date Recorded Patient Health Questionnaire-2 Score 2 12/20/2024 Internet Access Answer Date Recorded Internet Access Q1 Yes 05/25/2024 Internet Access Q2 Not on file 05/25/2024 Comments No Sex and Gender Information Value Date Recorded Sex Assigned at Female 02/22/2022 10:16 AM EDT Legal Sex Female 10:16 AM EDT Gender Identity Female 02/22/2022 10:16 AM EDT Sexual Orientation Straight 03/07/2024 6: 04 PM EST documented as of this encounter Miscellaneous Notes * Telephone Encounter - Cynthia Robledo - 12/28/2024 3:46 PM EDT Tc from pt stating a PA is needed for Tirzepatide-Weight Management (Zepbound) 12.5 MG/0.5ML solution auto-injector Contact pt at [phone] (prydeinig) documented in this encounter Plan of Treatment Upcoming Encounters Date Type Department Care Team (Late st Contact Info) Description 03/19/2025 9:00 AM EST Office Visit [facility] [address] [place] [address] Ceci Billings MD [address] [place] [address] documented as of this encounter Visit Diagnoses Not on filedocumented in this encounter Additional Health Concerns Assessment Noted Time PHQ-9 Depression Total Score: 4 12/21/19 11:24 AM EDT documented as of this encounter Care Teams Development Professional Relationship Specialty Start Date End Date Ceci Billings MD [address] [place] [address] PCP - General Family Medicine 06/02/20 documented as of this encounter
--- OUTSIDE RECORDS SUMMARY | 2025-01-18 10:16 | XMS_ITS | Encounter Summary ---
Author Organization [employer] Address [address] [place] [address] Care Team Providers Care Microgrinder Operator Name Role Phone Ceci Billings MD Primary Care Provide r Encounter Details Date Type Department Care Team (Late st Contact Info) Description 08/15/2024 Orders Only [facility] [address] [place] [address] Provider, MD Chito Social History Tobacco Use [...] Description 03/19/2025 9:00 AM EST Office Visit [facility] MEDICINE [address] [place] [address] Ceci Billings MD [address] [place] [address] documented as of this encounter Procedures Procedure [...] documented as of this encounter Care Teams Microgrinder Operator Relationship Specialty Start Date End Date Ceci Billings MD [address] [place] [address] PCP - General Family Medicine 06/02/20 documented as of this encounter
--- OUTSIDE RECORDS SUMMARY | 2025-01-18 10:16 | XMS_ITS | Clinical Summary ---
Author Organization [facility] Address [address] [place] [address] Phone Care Team Providers Care Cytotechnologist Name Role Phone Katrina Sherwood MD Primary Care Provider [phone] Allergies Active Allergy Reactions Criticality Noted Date [...] Encounters Date Type Department Care Team Description 12/11/2024 1:15 PM EDT Office Visit Orthopedic Surgery [facility] [address] [phone] Juan Moody DPM Posterior tibial tendinitis of right leg (Primary Dx); Lumbosacral radiculopathy; Capsulitis of left foot; Equinus contracture of right ankle; Plantar fasciitis [...] Care Team (Late st Contact Info) Description 02/11/2025 1:00 PM EDT Office Visit Orthopedic Surgery [facility] [address] [phone] Juan Moody DPM [address] [address] Health Maintenance Due Date Last Done Comments Breast Cancer Screening 1975 Colorectal Cancer Screening: Colonoscopy 03/23/2022 HIV Screening 03/23/2022 Hepatitis C Screening 03/23/2022 Medicare Annual Wellness Visit 03/23/2022 Social Influencers of Health Screening 03/23/2022 Depression Screening 04/25/2024 COVID-19 Vaccine ( season) 2024 08/19/2020, 07/11/2020 Influenza Vaccine (#1) 2024 3, 05/07/2021, 12/24/2020, Additional history exists Cervical Cancer [...] Diagnosis Comments INJECTION TENDON OR LIGAMENT Routine 12/11/2024 1:15 PM EDT Plantar fasciitis LIPID PANEL Routine 08/06/2022 HM HPV Routine 11/09/2021 from Last 3 Months or Most Recently Relevant to Health Maintenance Results * Injection tendon or ligament (12/11/2024 1:15 PM EDT) Narrative Juan Moody DPM - 12/11/2024 1:15 PM EDT Juan Moody DPM 12/11/2024 1:37 PM Injection tendon or ligament Indications: pain Details: 25 G needle Medications: 0.5 mL lidocaine (PF) 1 %; 40 mg triamcinolone acetonide 40 mg/mL Informed Consent: Laterality: Bilateral Juan Moody DPM IN CLINIC/BEDSIDE ORDERABLE S Final Result * Lipid panel (08/06/2022) Pathologist [facility] LDL/HDL Ratio 0 Comment:no interpretation, a bstracted Triglycerides 0 mg/dL Comment:no interpretation, a bstracted Cholesterol 0 mg/dL Comment:no interpretation, a bstracted HDL 0 mg/dL Comment:no interpretation, a bstracted LDL Cholesterol 0 mg/dL Comment:no interpretation, a bstracted Blood Venous blood specimen / Unknown Historical Provider LAB BLOOD ORDERABLES Marcelina l Result * Cervical Cancer Screening: HPV (11/09/2021) Pathologist [facility] Cervical Cancer Screening: HPV abstracted Historical Provider HEALTH MAINTENANCE Final Result from Last 3 Months or Most Recently Relevant to Health Maintenance Insurance MEDICAID - [place] MEDICARE Care Teams Cytotechnologist Relationship Specialty Start Date End Date Paulding, MD Katrina [address] [place] [phone] PCP - General Internal Medicine 01/02/14
--- OUTSIDE RECORDS SUMMARY | 2025-01-18 10:16 | XMS_ITS | Encounter Summary ---
Author Organization [employer] Address [address] [place] [address] Care Team Providers Care Retail Administrative Assistant Name Role Phone Ceci Billings MD Primary Care Provide r Reason for Visit * Reason Comments Med Refill Encounter Details Date Type Department Care Team (Late st Contact Info) Description 01/03/2024 Refill [facility] [address] [place] [address] Ceci Billings MD [address] [place] [address] Social History Tobacco Use Types Packs/Day Years [...] Description 03/19/2025 9:00 AM EST Office Visit [facility] [address] [place] [address] Ceci Billings MD [address] [place] [address] documented as of this encounter Visit Diagnoses Not on filedocumented in this encounter Additional Health Concerns Assessment Noted Time PHQ-9 Depression Total Score: 0 10/05/19 24 9:33 AM EDT documented as of this encounter Care Teams Retail Administrative Assistant Relationship Specialty Start Date End Date Ceci Billings MD [address] [place] [address] PCP - General Family Medicine 06/02/20 documented as of this encounter
--- OUTSIDE RECORDS SUMMARY | 2025-01-18 10:16 | XMS_ITS | Encounter Summary ---
Author Organization [employer] Address [address] [place] [address] Care Team Providers Care Staff Design Engineer Name Role Phone Ceci Billings MD Primary Care Provide r Encounter Details Date Type Department Care Team (Late st Contact Info) Description 12/25/2024 Orders Only [facility] [address] [place] [address] Ceci Billings MD [address] [place] [address] Social History Tobacco Use Types Packs/Day Years [...] Description 03/19/2025 9:00 AM EST Office Visit [facility] [address] [place] [address] Ceci Billings MD [address] [place] [address] documented as of this encounter Visit Diagnoses Not on filedocumented in this encounter Additional Health Concerns Assessment Noted Time PHQ-9 Depression Total Score: 4 12/21/19 25 11:24 AM EDT documented as of this encounter Care Teams Staff Design Engineer Relationship Specialty Start Date End Date Ceci Billings MD [address] [place] [address] PCP - General Family Medicine 06/02/20 documented as of this encounter
--- OUTSIDE RECORDS SUMMARY | 2025-01-18 10:17 | XMS_ITS | Encounter Summary ---
Author Organization [employer] Address [address] [place] [address] Care Team Providers Care Senior Government Program Analyst Name Role Phone Ceci Billings MD Primary Care Provide r Encounter Details Date Type Department Care Team ([facility] Contact Info) Description 04/23/2024 Orders Only [facility]INE [address] [place] [address] Ceci Billings MD [address] [place] [address] Social History Tobacco Use Types Packs/Day Years [...] Description 03/19/2025 9:00 AM EST Office Visit [facility] [address] [place] [address] Ceci Billings MD [address] [place] [address] documented as of this encounter Visit Diagnoses Not on filedocumented in this encounter Additional Health Concerns Assessment Noted Time PHQ-9 Depression Total Score: 0 10/05/19 24 9:33 AM EDT documented as of this encounter Care Teams Senior Government Program Analyst Relationship Specialty Start Date End Date Ceci Billings MD [address] [place] [address] PCP - General Family Medicine 06/02/20 documented as of this encounter
--- OUTSIDE RECORDS SUMMARY | 2025-01-18 10:17 | XMS_ITS | Encounter Summary ---
Author Organization [employer] Address [address] [place] [address] Care Team Providers Care Electronic Controls Repairer Supervisor Name Role Phone Ceci Billings MD Primary Care Provide r Reason for Visit * Reason Comments Med Refill Encounter Details Date Type Department Care Team (Late st Contact Info) Description 07/18/2024 Refill [facility] [address] [place] [address] Ceci Billings MD [address] [place] [address] Social History Tobacco Use Types Packs/Day Years [...] 03/19/2025 9:00 AM EST Office Visit [facility] [address] [place] [address] Ceci Billings MD [address] [place] [address] documented as of this encounter Visit Diagnoses Not on filedocumented in this encounter Additional Health Concerns Assessment Noted Time PHQ-9 Depression Total Score: 0 10/05/19 24 9:33 AM EDT documented as of this encounter Care Teams Electronic Controls Repairer Supervisor Relationship Specialty Start Date End Date Ceci Billings MD [address] [place] [address] PCP - General Family Medicine 06/02/20 documented as of this encounter
--- OUTSIDE RECORDS SUMMARY | 2025-01-18 10:17 | XMS_ITS | Encounter Summary ---
Author Organization [employer] Address [address] [place] [address] Care Team Providers Care Supervisor Ornamental Ironworking Name Role Phone Ceci Billings MD Primary Care Provide r Encounter Details Date Type Department Care Team ([facility] Contact Info) Description 10/16/2024 Telephone [facility] MED[facility]INE [address] [place] [address] Ceci Billings MD [address] [place] [address] Social History Tobacco Use Types Packs/Day Years Used Date Smoking Tobacco: Never Passive Smoke Exposure: Never Smokeless Tobacco: Never Alcohol Use Standard Drinks/Week Comments Never 0 (1 standard drink = 0.6 oz pur e alcohol) Depression Answer Date Recorded Patient Health Questionnaire-9 Score 0 09/07/2024 Patient Health Questionnaire-9 Score 0 09/07/2024 Last PHQ-9: Questionnaire Data Not on file 0 09/07/2024 Housing Stability Answer Date Recorded What is [...] Date Recorded Patient Health Questionnaire-2 Score 0 09/07/2024 Internet Access Answer Date Recorded Internet Access [...] Description 03/19/2025 9:00 AM EST Office Visit [facility] [address] [place] [address] Ceci Billings MD [address] [place] [address] documented as of this encounter Visit Diagnoses Not on filedocumented in this encounter Additional Health Concerns Assessment Noted Time PHQ-9 Depression Total Score: 0 09/08/19 9:03 AM EDT documented as of this encounter Care Teams Supervisor Ornamental Ironworking Relationship Specialty Start Date End Date Ceci Billings MD [address] [place] [address] PCP - General Family Medicine 06/02/20 documented as of this encounter
--- OUTSIDE RECORDS SUMMARY | 2025-01-18 10:17 | XMS_ITS | Encounter Summary ---
Author Organization [employer] Address [address] [place] [address] Care Team Providers Care Litigation Support Analyst Name Role Phone Ceci Billings MD Primary Care Provide r Reason for Visit * Reason Onset Date Comments Med Refill 10/02/2024 Encounter Details Date Type Department Care Team (Late st Contact Info) Description 10/02/2024 Refill [facility] MED[facility]INE [address] [place] [address] Ceci Billings MD [address] [place] [address] Morbid obesity (CMS/HCC) Social History Tobacco Use Types Packs/Day [...] Description 03/19/2025 9:00 AM EST Office Visit [facility] MEDICINE [address] [place] [address] Ceci Billings MD [address] [place] [address] documented as of this encounter Visit Diagnoses Diagnosis Morbid obesity (CMS/HCC) Morbid obesity documented in this encounter Additional Health Concerns Assessment Noted Time PHQ-9 Depression Total Score: 0 09/08/19 25 9:03 AM EDT documented as of this encounter Care Teams Litigation Support Analyst Relationship Specialty Start Date End Date Ceci Billings MD [address] [place] [address] PCP - General Family Medicine 06/02/20 documented as of this encounter
--- OUTSIDE RECORDS SUMMARY | 2025-01-18 10:17 | XMS_ITS | Encounter Summary ---
Author Organization [employer] Address [address] [facility] 7t [place] [address] Care Team Providers Care Airborne Electronics Analyst Name Role Phone Ceci Billings MD Primary Care Provide r Reason for Visit * Reason Onset Date Comments Med Refill 10/31/2024 Encounter Details Date Type Department Care Team (Late st Contact Info) Description 10/31/2024 Refill [facility]INE [address] [place] [address] Ceci Billings MD [address] [place] [address] Multiple joint pain Social History Tobacco Use Types Packs/Day Years [...] Description 03/19/2025 9:00 AM EST Office Visit [facility] MEDICINE [address] [place] [address] Ceci Billings MD [address] [place] [address] documented as of this encounter Visit Diagnoses Diagnosis Multiple joint pain Pain in joint, multiple sites documented in this encounter Additional Health Concerns Assessment Noted Time PHQ-9 Depression Total Score: 0 09/08/19 25 9:03 AM EDT documented as of this encounter Care Teams Airborne Electronics Analyst Relationship Specialty Start Date End Date Ceci Billings MD [address] [place] [address] PCP - General Family Medicine 06/02/20 documented as of this encounter
--- OUTSIDE RECORDS SUMMARY | 2025-01-18 10:17 | XMS_ITS | Patient Health Record ---
Author Organization [facility] Address [address] [place] [address] Care Team Providers Care Tree Deadener Name Role Phone Ceci Blackburn M.D. Primary Care Provider Emerson Schwartz [phone] Allergies Allergen (clinical drug ingredient) Drug/Non Drug Allergy documented on EMR Reaction Allergy Type Onset Date Status vancomycin Vancomycin HCl Unknown Drug Allergy A ctive ciprofloxacin cipro (uncoded) Unknown Allergy Active Results Component Value Reference Range Notes Complete Blood Count Auto Di ff Reviewed date:04/09/2024 10:38:42 PM Interpretation: Performing Lab:[facility], [address] [place] [phone] Notes/Report: White Blood Count 5.2 4.8-10.8 X10*3/uL [...] Panel Reviewed date:04/04/2024 01:40:57 PM Interpretation: Performing Lab:[address] [phone] Notes/Report: Bilirubin Total 0.2 0.0-1.0 mg/dL Bilirubin Direct < 0.2 0.0-0.5 mg/dL Aspartate Amino Transferase 22 5-31 U/L Alanine Aminotransferase 34 0-31 U/L Total Protein 7.2 6.5-8.0 g/dL Albumin Level 3.7 3.5-5.0 g/dL Alkaline Phosphatase 71 39-117 U/L Dakota AVINA Reviewed date:06/05/2024 05:15:56 PM Interpretation: Performing Lab:[address] [phone] Notes/Report: Dakota AVINA SEE NOTE SEE SCA NNED RESULTS IN EMR Reason For Referral No Information Medications Medication SIG (Take, Route, Frequency, Duration) Notes Start Date End Date Status Vitamin D 2000 UNIT 1 tablet Orally Once a day for 30 day(s) Not-Taking Pantoprazole Sodium 40 MG Oral for 90 Days Active Fexofenadine HCl 180 MG 1 tablet as needed Orally Once a day for 30 day(s) Active Dicyclomine HCl 20 MG Oral for 30 Days Active Ambien 10 MG 1 tablet at bedtime as needed Orally Once a day Active Stelara 90 MG/ML INJECT CONTENTS OF 1 SYRINGE UNDER THE SKIN EVERY 4 WEEKS Subcutaneous for 28 Days Active Baclofen 20 MG/20ML Intrathecal Three times a day Not-Taking Nabumetone 500 MG Oral for 30 Days Active Gabapentin 600 MG Oral for 30 Days Active Emgality 120 MG/ML Subcutaneous for 28 Days For headache Active Metamucil 0.36 GM Take 2 with at least 8 ounces of juice or water Orally Twice a day for constipation for 30 days 01/09/2025 Active Tylenol 325 MG 1 tablet as needed Orally prn Active Senna PRN Active Propranolol HCl 20 MG Oral for 90 Days Active hydrOXYzine Pamoate 25 MG as directed Orally every 6 hrs Not-Taking Arnuity Ellipta 100 MCG/ACT INHALE 1 PUFF BY MOUTH DAILY. RINSE MOUTH WITH WATER AFTER USE FOR AFTERTASTE AND INCIDENCE OF CANDIDIASIS. DO NOT SWALLOW Inhalation for 30 Days Active Zepbound 2.5 MG/0.5ML 0.5 mL Subcutaneous for 30 day(s) Not-Taking Albuterol Sulfate HFA 108 (90 Base) MCG/ACT INHALE 2 PUFFS BY MOUTH EVERY 4 TO 6 HOURS NEEDED FOR SHORTNESS OF BREATH OR WHEEZING Inhalation for 16 Days Active MiraLax 17 GM/SCOOP Take 1 measured dose in the cap of the bottle in at least 8 ounces of water or juice Orally Twice a day for constipation for 30 days 01/09/2025 Active Albuterol Sulfate HFA 108 (90 Base) MCG/ACT Inhalation for 16 Days Active Ondansetron HCl 8 MG TAKE ONE TABLET BY MOUTH EVERY 8 HOURS NEEDED Oral for Not Available Active Fluconazole 150 MG 1 tablet Orally Take 1 on Day #1, 1 on Day #2, and 1 on Day #7 for 7 days PRN Active Stelara 90 MG/ML 1 injection every 4 weeks Subcutaneous Every 4 weeks for 28 days Active Docusate Sodium 100 MG 1 Orally Twice a day for constipation for 30 days 01/09/2025 Active Pantoprazole Sodium 40 MG TAKE 1 TABLET BY MOUTH DAILY for 30 Active Gabapentin 400 MG Oral for 30 Days Active Fexofenadine HCl 180 MG TAKE 1 TABLET BY MOUTH EVERY DAY NEEDED Oral for 90 Days Active Dicyclomine HCl 20 MG TAKE 1 TABLET BY MOUTH THREE TIMES DAILY WITH MEALS for 30 PRN Active clonazePAM 0.5 MG Oral for 30 Days Active Propranolol HCl 20 MG TAKE 1 TABLET BY MOUTH EVERY DAY Oral for 90 Active Imodium A-D 2 MG 1 or 2 tablets Orally Every 4 to 6 hours as needed for diarrhea for 30 days PRN 08/14/2022 Active Sertraline HCl 50 MG 1 half tablet Orall y Once a day Active Montelukast Sodium 10 MG TAKE 1 TABLET BY MOUTH EVERY NIGHT AT BEDTIME NEEDED FOR RHINITIS Oral for 90 Days Active Dicyclomine HCl 10.0 Milligram Take 1 or 2 capsules QID prn abdominal cramps and/or diarrhea Active Sertraline HCl 100 MG TAKE 1 TABLET BY MOUTH DAILY Oral for 30 Days Active Diphenoxylate-Atropi ne 0 TAKE 1 TO 2 TABLETS BY MOUTH FOUR TIMES DAILY NEEDED FOR DIARRHEA only prn-rare Active Gabapentin 400 MG Oral for 30 Days Active Jrxbgosciu-UFWB-Vico eine 50-325-40 MG TAKE 1 TO 2 TABLETS BY MOUTH EVERY 4 HOURS NEEDED. NOT TO EXCEED 6 TABLETS PER 24 HOURS Oral for 5 Not-Taking Zolpidem Tartrate 10 MG TAKE 1 TABLET BY MOUTH AT BEDTIME NEEDED Oral for 30 Days Active Immunizations Vaccine Route Administration Date Status Comme nts Influenza Unknown 02/21/2018 Administered Influenza Unknown 04/04/2019 Administered Influenza Unknown 12/24/2020 Administered Influenza Unknown 01/08/2021 Refused Influenza Unknown 01/09/2025 Refused Social History Tobacco Use: Social History Observation Description Date Details (start date - stop date) Former Smoker NA - NA Tobacco Use/Smoking Question Answer Notes Patient is a former smoker How long has it been since you last smoked? > 10 years Section Notes: She does not smoke nor use a ri significant amounts of alcohol. She does not smoke nor use a ri significant amounts of alcohol. She does not smoke nor use a ri significant amounts of alcohol. She does not smoke nor use a ny significant amounts of alcohol. She does not smoke nor use a ny significant amounts of alcohol. She does not smoke nor use a ri significant amounts of alcohol. She does not [...] She does not smoke nor use a ri significant amounts of alcohol. She does not [...] Status Risk Notes Problem Colon cancer screening (902990499) Colon cancer screening (Z12.11) Active confirmed Problem Irritable bowel syndrome (41117177) Irritable bowel syndrome (K58.9) Active confirmed Problem Constipation (02580411) Constipation (K59.00) Active confirmed Problem 14313212 Crohn's disease of both small and large intestine without complication (K50.80) Active confirmed Problem 380649446 Nausea (R11.0) Active confirmed Problem 167231657 Encounter for therapeutic drug level monitoring (Z51.81) Active confirmed Problem Dysphagia (79765925) Dysphagia (R13.10) Active confirmed Problem 33132030 Crohns disease o f both small and large intestine without complication (K50.80) Active confirmed Problem 587361437 Gastroesophageal reflux disease, esophagitis presence not specified (K21.9) Active confirmed Problem Chronic gastritis (2813429) Chronic gastritis (K29.50) Active confirmed Problem 46136927 Diarrhea, unspecified type (R19.7) Active confirmed Problem 14427354 Crohn''s disease of both small and large intestine without complication (K50.80) Active confirmed Problem 19903072 Erythematous ski n nodule (R22.9) Active confirmed Problem 53866653 Vaginal candidiasis (B37.3) Active confirmed Problem Drug monitoring done (434002655) Encounter for therapeutic drug monitoring (Z51.81) Active confirmed Problem Gastroesophageal reflux disease (disorder) (204907404) Chronic GERD (K21.9) Active confirmed Vital Signs Temperature 97.2 degrees Fahrenheit 01/09/2025 Blood pressure diastolic 01 mm Hg 01/09/2025 Height 65.5 in 01/09/2025 Blood pressure systolic 001 mm Hg 01/09/2025 Weight 254.2 lbs 01/09/2025 BMI 41.65 kg/m2 01/09/2025 Encounters Encounter Location Date Provider Diagnosis [facility] [address] [place] [phone] 01/09/2025 Emerson Canales Crohns disease of jaquelin th small and large intestine without complication K50.80 and Constipation K59.00 [facility] [address] [place] [phone] 06/05/2024 Emerson Canales Crohn's disease of both small and large intestine without complication K50.80 ; Irritable bowel syndrome K58.9 ; Chronic GERD K21.9 and Vaginal candidiasis B37.3 [facility] [address] [place] [phone] 02/03/2024 Emerson Canales [facility] [address] [place] [phone] 02/03/2024 Emerson Canales Crohn''s disease of both small and large intestine without complication K50.80 and Encounter for therapeutic drug monitoring Z51.81 [facility] [address] [place] [phone] 05/01/2024 Emerson Canales [facility] [address] [place] [phone] 06/05/2024 Emerson Canales [facility] [address] [place] [phone] 06/14/2024 Emerson Canales [facility] [address] [place] [phone] 06/22/2024 Emerson Canales [facility] [address] [place] [phone] 10/24/2024 Emerson Canales Assessments Encounter Date Diagnosis (ICD Code) Assessment Notes Treatment Notes Treatment Clinical Notes Section Notes 01/09/2025 Constipation (ICD-10 - K59.00) Start using [...] regimen including MiraLAX, fiber supplement, and another gxzi-hrs-iuuaqlg stool softener such as Colace. I advised [...] keep you advised of her progress. 01/09/2025 Crohns disease of both small and [...] regimen including MiraLAX, fiber supplement, and another aqhp-cer-cdtmkug stool softener such as Colace. I advised [...] keep you advised of her progress. 06/05/2024 Irritable bowel syndrome (ICD-10 - K58.9) [...] the Stelara to every 4 weeks Overall, tSephie appears well from a GI standpoint. It [...] Date CHEM 7 PROFILE 07/10/2020 LIVER PROFILE 01/08/2021 LIVER PROFILE 07/08/2013 LIVER PROFILE 08/13/2021 LIVER PROFILE 12/11/2017 LIVER PROFILE 11/03/2015 LIVER PROFILE 01/24/2018 LIVER PROFILE 05/23/2019 LIVER PROFILE 07/11/2017 LIVER PROFILE 07/10/2020 LIVER PROFILE 07/12/2016 LIVER PROFILE 07/15/2016 LIVER PROFILE 04/01/2015 LIVER PROFILE 10/17/2018 LIVER PROFILE 02/03/2024 IRON + IBC (FE) 08/13/2021 CRP 01/08/2021 CRP 01/24/2018 CRP 08/13/2021 VITAMIN B12 AND FOLATE 08/13/2021 CBC w DIFF 08/13/2021 CBC w DIFF 10/17/2018 CBC w DIFF 02/03/2024 CBC w DIFF 07/08/2013 CBC w DIFF 12/11/2017 CBC w DIFF 05/09/2014 CBC w DIFF 11/03/2015 CBC w DIFF 01/08/2021 CBC w DIFF 07/11/2017 CBC w DIFF 01/24/2018 CBC w DIFF 07/10/2020 CBC w DIFF 07/12/2016 CBC w DIFF 07/15/2016 CBC w DIFF 04/01/2015 CBC w/o DIFF 05/23/2019 SED RATE (ESR) [...] PCR 08/19/2022 Ferritin 08/13/2021 Prometheus Anser UST 01/09/2025 Prometheus Anser UST 02/03/2024 Prometheus Anser UST 01/08/2021 GI PANEL 08/19/2022 Future Test Test Name Order Date COLONOSCOPY 05/08/2013 UPPER GI ENDOSCOPY 06/08/2018 COLONOSCOPY 06/08/2018 UPPER GI ENDOSCOPY BALLOOON DILATION OF ESOPH 06/30/2023 COLONOSCOPY 06/30/2023 Next Appt Details Provider Name:Emerson Canales , 07/30/2025 09:10:00 AM, [address], [address], [place], [address], Insurance Providers Payer Name Payer Address Payer Phone Subscriber Number Group Number Insured Name Patient Relationship to Insured Coverage Start Date Coverage End Date MEDICARE OF [place] [address] [place] [id number] STEPHIE DORSEY Self - patient is the insured MEDICAID OF [employer] [address] [place] [phone] [id number] STEPHIE DORSEY Self - patient is the insured Medical (General) History Medical History History ICD Code Colonoscopy 07-07-2012 Crohn's colitis-diagnosed in 2000- colonoscopy in 02/2009 at [facility] with diffuse colitis/ileitis-has been treated with Remicade, Humira, and azathioprine in the past at [facility]- Stephie reports that the mesalamines and azathioprine seem to exacerbate her GI symptoms with gas and cramps- however, at those time she is usually having active Crohn's disease symptoms as well- -she was hospitalized at [facility] in [place]/2013 for a flareup of [...] and psoriasis Denies AK,DM,CVA,Lung disease,renal dise ase Anemia- sees Dr. Pulido/Dr. Griffiths- rece deb IV Iron in the past Fibromyalgia Pancreatitis- in 2000- no etiology-GB U/ S was neg- also neg. in 12/2012 Colonoscopy 05/21/13- very active colitis c/w Crohn's negative hepatitis B profile in April of 2013 negative H. pylori serology in 01/2014 Neg GB U/S and Normal HIDA with CCK in 2 014 asthma carpal tunnel bilateral GERD- EGD in 2000- no esophagitis- gastr itis with H.pylori Erythema nodusum- responsive to predniso ne Psoriasis started in 07/2018- ? due to Entyvio- -started Methotrexate in 10/2018, but stopped in 2018 when she was started on Stelara instead of the Entyvio- sees Dr. Chu for Dermatology EGD in 08/2018- moderate-size d hiatal hernia, no esophagitis nor Saleh's [...] negative for dysplasia Surgical History Surgery Date(Month/Year) Left and right in arm pit areas- removal of benign lumps Lap band removed with improvement in her dysphagia 10/29/2023 Pneumothorax with chest tubes Lap Band in 2008- still in place Breast reduction
--- OUTSIDE RECORDS SUMMARY | 2025-01-18 10:17 | XMS_ITS | Encounter Summary ---
Author Organization [employer] Address [address] [place] [address] Care Team Providers Care Bright Cutter Name Role Phone Ceci Billings MD Primary Care Provide r Encounter Details Date Type Department Care Team (Late st Contact Info) Description 07/03/2024 Orders Only [facility] [address] [place] [address] Provider, MD Chito Social History Tobacco Use [...] Description 03/19/2025 9:00 AM EST Office Visit [facility] [address] [place] [address] Ceci Billings MD [address] [place] [address] documented as of this encounter Procedures Procedure [...] PM EDT Narrative 07/20/2024 4:18 PM EDT [facility] [address] [place] [address] Mammography Report Signed Patient: Windy Mcfarlane MR# : [id number] : 1975 Acct:[id number] Age/Sex: 48 / F ADM Date: 07/12/24 Loc: HO.MAMMO Attending Dr: Ceci Peacock MD Ordering Physician: Ceci Billings MD Results: 2Benign Findings Date of Service: 07/12/24 Follow Up: 1 Year From Orig inal Mammogram Procedure(s): MM tomosynthesis screening BI Accession Number(s): [id number] cc: Ceci Billings MD EXAMINATION: MM SCREENING [...] 07/20/24 1614 DD/ 1345 TD/TT: 07/12/24 1401 Linseed Cake Trimmer: Procedure Note Donotuseinterpreter, Image - 07/20/2024 [place] [facility] [address] [place] [address] Mammography Report Signed Patient: Windy McfarlaneMR# : [id number] : 1975Acct:[id number] Age/Sex: 48 / FADM Date: 07/12/24 Loc: HO.MAMMO Attending Dr: Ceci Peacock MD Ordering Physician: Ceci Billings MDResults: 2Benign Findings Date of Service: 07/12/24Follow Up: 1 Year From Orig inal Mammogram Procedure(s): MM tomosynthesis screening BI Accession Number(s): [id number] cc: Ceci Billings MD EXAMINATION: MM SCREENING [...] 07/20/24 1614 DD/ 1345 TD/TT: 07/12/24 1401 Linseed Cake Trimmer: us Ceci Peacock MD IMG BI PROCEDURES Fin al Result * Bacterial Vaginosis (07/03/2024 12:00 AM EDT) TRICHOMONAS VAGINALIS DETECTION BY PCR NOT DETECTED Not Detect [facility] BACTERIAL VAGINOSIS DETECTION BY PCR NEGATIVE Negative [facility] Comment:The BV organism targ ets [...] DETECTION BY PCR NOT DETECTED Not Detect [facility] Jeni glab krusei PCR NOT DETECTED Not Detect [facility] 07/03/2024 07/03/2024 us Generic External Data Provider LAB MICROBIOLOGY - GENERAL ORDERABLES Final Result [facility] [address] [place] [address] [phone] * Chlamydia/N. Gonorrhoeae RNA, TMA, Urogenitial (07/03/2024 12:00 AM EDT) CT PCR NOT DETECTED Not Detect. [facility] Comment:A not detected test result [...] psychologicalconsequences. NG PCR NOT DETECTED Not Detect. [facility] Comment:A not detected test result [...] medical, social or psychologicalconsequences. 07/03/2024 07/03/2024 Narrative [facility] - 07/04/2024 5:16 AM EDT Vaginal us Generic External Data Provider LAB MICROBIOLOGY - GENERAL ORDERABLES Final Result [facility] [address] [place] [address] [phone] * Colonoscopy (08/23/2023 11:53 AM EDT) us Historical Provider HEALTH MAINTENANCE Final Result documented in this encounter Visit Diagnoses Not on filedocumented in this encounter Additional Health Concerns Assessment Noted Time PHQ-9 Depression Total Score: 0 10/05/19 24 9:33 AM EDT documented as of this encounter Care Teams Bright Cutter Relationship Specialty Start Date End Date Ceci Billings MD [address] [place] [id number] PCP - General Family Medicine 06/02/20 documented as of this encounter
--- OUTSIDE RECORDS SUMMARY | 2025-01-18 10:17 | XMS_ITS | Clinical Summary ---
Author Organization [employer] Address [address] [place] [address] 7t [place] [address] Care Team Providers Care Top Edge Beveler Name Role Phone Ceci Billings MD Primary [...] tip and replace cap. 16 g 12 023 Active triamcinolone (Kenalog) 0.1 % creamIndication s:Contact dermatitis, unspecified contact dermatitis type, unspecified trigger Apply topically if needed in the morning and at bedtime (pain and swelling). 30 g 024 Active docusate sodium (Colace) 100 MG capsuleIndicati ons:Crohn's disease of both small and large intestine without complication (CMS/HCC) Take 1 capsule (100 mg) by mouth 2 times daily. 180 capsule 024 Active albuterol (Ventolin HFA) 108 (90 Base) MCG/ACT inhalerIndicati ons:Mild persistent asthma without complication INHALE 2 PUFFS BY MOUTH THREE TIMES DAILY NEEDED 18 g 3 024 Active famotidine (Pepcid) 20 MG tabletIndicatio ns:Heartburn Take 1 tablet (20 mg) by mouth 2 times daily. 60 tablet 11 024 2024 Active Tirzepatide-Mack ght Management (Zepbound) 10 MG/0.5ML solution auto-injectorIn dications:Class 3 severe obesity with serious comorbidity and body mass index (BMI) of 45.0 to 49.9 in adult, unspecified obesity type Inject 0.5 mL (10 mg) under the skin 1 (one) time per week. 2 mL 1 025 Active fluticasone furoate (Arnuity Ellipta) 100 MCG/ACT inhalerIndicati ons:Mild persistent asthma without complication Inhale 1 puff Once per day. Rinse mouth with water after use to reduce aftertaste and incidence of candidiasis. Do not swallow. 1 each 025 2025 Active senna (Senokot) 8.6 MG tabletIndicatio ns:Crohn's disease of both small and large intestine without complication (CMS/HCC) Take 2 tablets (17.2 mg) by mouth 2 times daily. 360 tablet 025 Active acetaminophen (Tylenol 8 Hour) 650 MG ER tabletIndicatio ns:Lumbar radiculopathy, chronic TAKE 2 TABLETS(1300 MG) BY MOUTH EVERY 8 HOURS NEEDED FOR MILD PAIN. DO NOT CRUSH, CHEW, OR SPLIT 40 tablet 025 Active propranolol (Inderal) 20 MG tabletIndicatio ns:Migraine without aura, not refractory TAKE 1 TABLET(20 MG) BY MOUTH EVERY DAY 90 tablet 1 025 Active zolpidem (Ambien) 10 MG tabletIndicatio ns:Insomnia, unspecified type TAKE 1 TABLET BY MOUTH AT BEDTIME 30 tablet 1 025 Active fexofenadine (Allergy Relief) 180 MG tablet TAKE 1 TABLET BY MOUTH EVERY DAY NEEDED 90 tablet 025 Active dicyclomine (Bentyl) 20 MG tabletIndicatio ns:Crohn's disease of both small and large intestine without complication (CMS/HCC) TAKE 1 TABLET BY MOUTH IF NEEDED IN THE MORNING, AT NOON, AND AT BEDTIME 90 tablet 1 Active gabapentin (Neurontin) 600 MG tabletIndicatio ns:Lumbar radiculopathy, chronic Take 1 tablet (600 mg) by mouth 3 times daily. 90 tablet 2 025 2025 Active Tirzepatide-Mack ght Management (Zepbound) 12.5 MG/0.5ML solution auto-injectorIn dications:BMI 40.0-44.9, adult ([facility]) Inject 0.5 mL (12.5 mg) under the skin 1 (one) time per week. INJECT ONE PEN (=12.5 MG) SUBCUTANEOUSLY ONCE A WEEK 2 mL Active Tirzepatide-Mack ght Management (Zepbound) 2.5 MG/0.5ML solution auto-injectorIn dications:Class 3 severe obesity with serious comorbidity and body mass index (BMI) of 45.0 to 49.9 in adult, unspecified obesity type Inject 0.5 mL (2.5 mg) under the skin 1 (one) time per week. 2 mL 024 2024 Discontinued butalbital-acet aminophen-caffe ine 50-325-40 MG tabletIndicatio ns:Migraine without aura, not refractory Take 1 tablet by mouth every 12 (twelve) hours if needed for migraine (max two days per week). 15 tablet 2 024 2024 Discontinued ondansetron (Zofran) 4 MG tabletIndicatio ns:Migraine without aura, not refractory Take 1 tablet (4 mg) by mouth every 8 (eight) hours if needed for nausea or vomiting. 20 tablet 024 2024 Discontinued Tirzepatide-Mack ght Management (Zepbound) 5 MG/0.5ML solution auto-injectorIn dications:Class 3 severe obesity with serious comorbidity and body mass index (BMI) of 45.0 to 49.9 in adult, unspecified obesity type Inject 0.5 mL (5 mg) under the skin 1 (one) time per week. 2 mL 025 2024 Discontinued Tirzepatide-Mack ght Management (Zepbound) 7.5 MG/0.5ML solution auto-injectorIn dications:Class 3 severe obesity with serious comorbidity and body mass index (BMI) of 45.0 to 49.9 in adult, unspecified obesity type Inject 0.5 mL (7.5 mg) under the skin 1 (one) time per week. 2 mL 025 2024 Discontinued lidocaine (Lidoderm) 5 % patchIndication s:Multiple joint pain Apply 1 patch topically Once per day. Remove & discard patch within 12 hours or as directed by MD.APPLY 1 PATCH EVERY DAY. REMOVE AND DISCARD PATCH WITHIN 12 HOURS OR DIRECTED BY MD 30 patch 1 025 2024 Discontinued Tirzepatide-Mack ght Management (Zepbound) 12.5 MG/0.5ML solution auto-injectorIn dications:BMI 40.0-44.9, adult ([facility]) Inject 0.5 mL (12.5 mg) under the skin 1 (one) time per week. INJECT ONE PEN (=12.5 MG) SUBCUTANEOUSLY ONCE A WEEK 2 mL 025 2024 Discontinued(R eorder (will not trigger notification to Pharmacy)) gabapentin (Neurontin) 400 MG capsuleIndicati ons:Neuropathy TAKE 1 CAPSULE(400 MG) BY MOUTH THREE TIMES DAILY 90 capsule 3 025 2024 Discontinued Active Problems Problem Noted Date Diagnosed Date Venous insufficiency 12/20/2024 Assessment & Plan (12/20/2024 2:13 PM EDT): I will prescribe for patient compression stockings to the tights with pressure of 15 to 20 mmHg, I advised to follow-up with vascular specialist Chronic hip pain, bilateral 09/07/2024 Assessment & Plan (12/20/2024 2:18 PM EDT): I will increase her gabapentin to 600 mg 3 times a day Continue to follow-up with pain management Assessment & Plan (09/07/2024 10:45 AM EDT): Referral to pain management Encounter for preventive care 09/07/2024 Assessment & Plan (09/07/2024 9:49 AM EDT): See HPI Metrorrhagia 07/24/2024 Assessment & Plan (07/24/2024 12:15 [...] medications as directed C/w gabapentin 300mg TID Contact dermatitis 04/26/2023 Assessment & Plan (04/26/2023 2:45 PM EST): Talk to supplier about a different mask material Triamcinolone cream BID Varicose veins of leg with pain, bilateral 04/26 Assessment & Plan (04/26/2023 2:44 PM EST): Compression stockings will be prescribe Plantar fasciitis, bilateral 02/15/2023 Lipoma 02/15/2023 Diarrhea 01/03/2023 Lumbar radiculopathy, chronic 01/03/2023 Assessment & Plan (12/20/2024 2:18 PM EDT): I will increase her gabapentin to 600 mg 3 times a day Follow-up with pain management Assessment & Plan (04/26/2023 2:44 PM EST): [...] intermittent asthma 08/05/2022 Moderate persistent asthma 08/05/2022 Assessment & Plan (12/20/2024 2:19 PM EDT): Controlled continue with same interventions Severe obesity 08/05/2022 Multiple joint pain 08/05/2022 [...] limb 02/15/2018 Obstructive sleep apnea syndrome 12/29/2016 Assessment & Plan (12/20/2024 2:19 PM EDT): Continue with Zepbound 12.5 mg weekly Continue to use CPAP every night 6 to 20 mmHg, continue to follow-up with union contract representative Mild persistent asthma 03/01/2016 Osteopenia 03/01/2016 Allergic rhinitis 06/20/2015 Anemia 06/20/2015 Crohn's disease of small and large intestines Assessment & Plan (09/07/2024 10:45 AM EDT): Follow-up with GI Erythema nodosum 06/20/2015 Fibromyositis 06/20/2015 Insomnia 06/20/2015 Morbid obesity 06/20/2015 Assessment & Plan (12/20/2024 2:18 PM EDT): Extensive counseling about healthy diet and exercise done today I prescribed for her again Zepbound 12.5 mg weekly with plans of increasing it to 15 mg weekly Patient will benefit from this medication it will improve her comorbidities including sleep apnea, patient has been losing weight with medication please refer to to HPI I cannot prescribe for patient phentermine, she has anxiety and palpitations, she is on propranolol for these condition, she also is being followed by cardiology Assessment & Plan (09/07/2024 10:45 AM EDT): Today extensive discussion was done about life style modifications I advise healthy diet (low calorie) and cardiovascular exercise Continue with next Zepbound dose which is 12.5 mg weekly Vitamin D deficiency 06/20/2015 Varicose veins 06/20/2015 Resolved Problems Problem Noted Date Diagnosed Date Resolved Date Class 3 severe obesity with serious comorbidity and body mass index (BMI) of 45.0 to 49.9 in adult 07/07/2023 09/07/2024 Assessment & Plan (07/24/2024 12:16 PM EDT): [...] increase to 0.5mg weekly RTC 4 weeks Encounters Date Type Department Care Team Description 01/04/[address] [address] Ceci Billings MD telephone call 12/28/[address] [address] Ceci Billings MD Prior Authorization 12/25/[address] [address] Ceci Billings MD 12/25/2024 Orders Only [address] [address] Ceci Billings MD 12/20/2024 11:15 AM EDT Office Visit [address] [address] Ceci Billings MD Obstructive sleep apnea syndrome (Primary Dx); Lumbar radiculopathy, chronic; Moderate persistent asthma, unspecified whether complicated; Morbid obesity (CMS/HCC); Chronic hip pain, bilateral; Venous insufficiency; BMI 40.0-44.9, adult (CMS/HCC) 12/20/[address] [address] Ceci Billings MD 12/20/[address] [address] Ceci Billings MD Durable Medical Equipment (DME RX Compression Stockings(L&C)) 12/20/2024 Travel 12/19/2024 Travel 12/19/[address] [address] Ceci Billings MD chart prep 12/13/2024 Refill [facility] [address] [place] [address] Ceci Billings MD Crohn's disease of both small and large intestine without complication ([facility]) 12/13/2024 Refill [facility] [address] [place] [address] Ceci Billings MD Neuropathy 12/04/2024 Telephone [facility] [address] [place] [address] Ceci Billings MD Appointment Request 10/31/2024 Refill [facility] [address] [place] [address] Ceci Billings MD Multiple joint pain 10/23/2024 Telephone [facility] [address] [place] [address] [phone] Ceci Billings MD telephone call 10/18/2024 Telephone [facility] [address] [place], [place] [phone] Ceci Billings MD Zepbound from Last 3 Months Immunizations Immunization Administration [...] Sign Reading Time Taken Comments Blood Pressure 108/70 12/20/2024 11:22 AM EDT Pulse 80 12/20/2024 11:22 AM EDT Temperature 36.6 C (97.9 F) 12/20/2024 11:22 AM EDT Respiratory Rate 19 12/20/2024 11:22 AM EDT Oxygen Saturation 95% 12/20/2024 11:22 AM EDT Inhaled Oxygen Concentration - - Weight 115 kg (254 lb 6 oz) 12/20/2024 11:22 AM EDT Height 165.1 cm (5' 5 ) 12/20/2024 11:22 AM EDT Body Mass Index 42.33 12/20/2024 11:22 AM EDT Plan of Treatment Upcoming Encounters Date Type Department Care Team (Late st Contact Info) Description 03/19/2025 9:00 AM EST Office Visit [facility] [address] [place], [place] [phone] Ceci Billings MD [address] [place], [place] [phone] Health Maintenance Due Date Last Done Comments CT Colonography 1975 FIT DNA/Cologuard 1975 FIT 1975 FOBT 1975 HIV Screening 1975 Sigmoidoscopy 1975 Family Planning (PISQ) 09/12/1991 Hepatitis C Screening 1994 COVID-19 Vaccine ( season) 2024 08/19/2020, 07/11/2020 Influenza Vaccine (#1) 2024 , 05/07/2021, 12/24/2020, Additional history exists SDOH Screening 05/25/2025 05/25/2024 Mammogram 07/12/2025 07/12/2024, 03/25, 04/04/2023, Additional history exists Alcohol/Substance Use Screening 09/07/2025 09/07/2024 Disability Screening 12/19/2025 12/19/2024 Depression Screening 12/20/2025 12/20/2024, 12/21/19 Tobacco Screening 12/20/2025 12/20/2024 Zoster Vaccines (1 of 2) 2026 Colonoscopy 08/22/2028 08/23/2023 Colorectal Cancer Screening 08/22/2028 Cervical Cancer Screening 07/03/2029 HPV/Cotest 07/03/2029 11/09/2021, [...] Years) and At-Risk Patients (6 to 49) Years Completed 10/05/2023, 07/09/2013, 07/11/2006, Additional history exists [...] Procedure Name Priority Date/Time Associated Diagnosis Comments AMB REFERRAL TO ORTHOPAEDIC SURGERY Routine 12/11/2024 Chronic right shoulder pain LIPID PANEL, STANDARD Routine 08/07/2024 2:25 PM EDT Class 3 severe obesity with serious comorbidity and body mass index (BMI) of 45.0 to 49.9 in adult, unspecified obesity type BI MAMMOGRAM SCREENING TOMOSYNTHESIS BILATERAL Routine 07/12/2024 1:45 PM EDT PAP/HPV Routine 07/03/2024 11:57 AM EDT HM COLONOSCOPY Routine 08/23/2023 11:53 AM EDT ZZZ HISTORICAL HPV E6/E7 RFLX JESSICA 16 18/45 Routine 11/09/2021 2:40 PM EDT from Last 3 Months or Most Recently Relevant to Health Maintenance Results * Referral to Orthopaedic Surgery (12/11/2024) us Yaniv Pelaez MD OUTPATIENT REFERRAL ORDERABLES F inal Result * Lipid Panel, Standard (08/07/2024 2:25 PM EDT) Triglycerides 63 <150 mg/dL [facility] Comment:Desirable Triglyceri de: less than 150 mg/dLBorderline High Triglyceride 150-199 mg/dLHigh Triglyceride: 200-499 mg/dLVery High Triglyceride: greater than or equal to 5OO mg/dL Cholesterol 154 <200 mg/dL [facility] Comment:Desirable Cholestero l: less than 200 mg/dLBorderline High Cholesterol: 200-239 mg/dLHigh Cholesterol: greater than 239 mg/dL LDL Cholesterol Calculated 92 <100 mg/dL [facility] Comment:Desirable LDL: less than 100 mg/dLNear Optimal/Above Optimal LDL: 110- 129 mg/dLBorderline High LDL: 130-159 mg/dLHigh LDL: 160-189 mg/dLVery High LDL: greater than or equal to 190 mg/dL HDL Cholesterol 50 >40 mg/dL [facility] Comment:Desirable HDL: great er than 40 mg/dL Note: This HDL assay may give artificially low results in patients with liver disease. Blood Venous blood specimen / Unknown 08/07/2024 2:25 PM EDT 08/07/2024 4:10 PM EDT us Ceci Peacock MD LAB BLOOD ORDERABLES Final Result [facility] [address] [place] [phone] * BI Mammogram Screening Tomosynthesis Bilateral (07/12/2024 1:45 PM EDT) Anatomical Region Laterality Modality Breast Bilateral Mammography 07/12/2024 1:45 PM EDT Narrative 07/20/2024 4:18 PM EDT [facility] [address] [place] [address] Mammography Report Signed Patient: Windy Mcfarlane MR# : [id number] : 1975 Acct:[id number] Age/Sex: 48 / F ADM Date: 07/12/24 Loc: HO.MAMMO Attending Dr: Ceci Peacock MD Ordering Physician: Ceci Billings MD Results: 2Benign Findings Date of Service: 07/12/24 Follow Up: 1 Year From Orig inal Mammogram Procedure(s): MM tomosynthesis screening BI Accession Number(s): [id number] cc: Ceci Billings MD EXAMINATION: MM SCREENING [...] 07/20/24 1614 DD/ 1345 TD/TT: 07/12/24 1401 Marshmallow Machine Operator: Procedure Note Donotuseinterpreter, Image - 07/20/[facility] [address] [place], [place] [address] Mammography Report Signed Patient: Windy McfarlaneMR# : [id number] : 1975Acct:[id number] Age/Sex: 48 / FADM Date: 07/12/24 Loc: HO.MAMMO Attending Dr: Ceci Peacock MD Ordering Physician: Ceci Billings MDResults: 2Benign Findings Date of Service: 07/12/24Follow Up: 1 Year From Orig inal Mammogram Procedure(s): MM tomosynthesis screening BI Accession Number(s): [id number] cc: Ceci Billings MD EXAMINATION: MM SCREENING [...] 07/20/24 1614 DD/ 1345 TD/TT: 07/12/24 1401 Marshmallow Machine Operator: us Ceci Peacock MD IMG BI PROCEDURES Fin al Result * PAP/HPV (07/03/2024 11:57 AM EDT) us Historical Provider MD HEALTH MAINTENANCE Final Result * Colonoscopy (08/23/2023 11:53 AM EDT) us Historical Provider HEALTH MAINTENANCE Final Result * HPV E6/E7 RFLX JESSICA 16 18/45 (11/09/2021 2:40 PM EDT) HPV mRNA E6/E7 rflx Not Detected Not Detected [facility] Comment: Methodology: Community Artist-Mediated Amplification This assay detects E6/E7 viral messenger RNA (mRNA) from 14 high-risk HPV types (16,18,31,33,35,39,45,51,52,56,58,59,66,68). Cervical sources are required for HPV testing. If a vaginal source from a patient who has had a total hysterectomy with removal of cervix was submitted, please contact the testing laboratory for alternative testing options. For additional information, please refer to http://education.Weave/faq/NDR139e1 (This link if provided for information/ educational purposes only.) THIS TEST WAS PERFORMED AT: [facility] [address] [place] [address] [address]LO[address],[place] [address] TIN DICKEY MD 11/09/2021 2:40 PM EDT Kylee [facility] HISTORICAL/NON ORDERABLE LABS Fi nal Result [facility] [address] from Last 3 Months or Most Recently Relevant to Health Maintenance Insurance MEDICARE [facility] STANDARD Care Teams Top Edge Beveler Relationship Specialty Start Date End Date Ceci Billings MD [address] [place] [phone] PCP - General Family Medicine 06/02/20
--- OUTSIDE RECORDS SUMMARY | 2025-01-18 10:17 | XMS_ITS | Encounter Summary ---
Author Organization [employer] Address [address] [facility] 7t [place] [address] Care Team Providers Care Sewer Pipe Layer Name Role Phone Ceci Billings MD Primary Care Provide r Reason for Visit * Reason Comments Med Refill Encounter Details Date Type Department Care Team ([facility] Contact Info) Description 04/30/2022 Refill [facility] [address] [place] [address] Jesús Vale MD [address] [place] [address] Influenza-like illness Social History Tobacco Use Types [...] Upcoming Encounters Date Type Department Care Team ([facility] Contact Info) Description 03/19/2025 9:00 AM EST Office Visit [facility] [address] [place] [address] Ceci Billings MD [address] [place], [place] [phone] documented as of this encounter Visit Diagnoses Diagnosis Influenza-like illness documented in this encounter Care Teams Sewer Pipe Layer Relationship Specialty Start Date End Date Ceci Billings MD [address] [place], [place] [phone] PCP - General Family Medicine 06/02/20 documented as of this encounter
--- OUTSIDE RECORDS SUMMARY | 2025-01-18 10:17 | XMS_ITS | Encounter Summary ---
Author Organization [employer] Address [address] [place] [address] 7t [place] [address] Care Team Providers Care Tobacco Farmworker Name Role Phone Ceci Billings MD Primary Care Provide r Encounter Details Date Type Department Care Team (Late st Contact Info) Description 05/27/2022 Telephone [facility] [address] [place] [phone] Ceci Billings MD [address] [place] [address] [phone] Social History Tobacco Use Types Packs/Day Years [...] Department Care Team (Late Contact Info) Description 03/19/2025 9:00 AM EST Office Visit [facility] [address] [place] [phone] Ceci Billings MD [address] [place], [place] [phone] documented as of this encounter Visit Diagnoses Not on filedocumented in this encounter Care Teams Tobacco Farmworker Relationship Specialty Start Date End Date Ceci Billings MD [address] [place] [address] PCP - General Family Medicine 06/02/20 documented as of this encounter
--- OUTSIDE RECORDS SUMMARY | 2025-01-18 10:17 | XMS_ITS | Encounter Summary ---
Author Organization [employer] Address [address] [place] [address] Care Team Providers Care Pipeline Systems Operator Name Role Phone Ceci Billings MD Primary Care Provide r Reason for Visit * Reason Comments Med Refill Encounter Details Date Type Department Care Team (Late st Contact Info) Description 06/22/2024 Refill [facility] [address] [place] [address] Ceci Billings MD [address] [place] [address] Migraine without aura, not refractory Social History [...] Description 03/19/2025 9:00 AM EST Office Visit [facility] [address] [place] [phone] Ceci Billings MD [address] [place] [phone] documented as of this encounter Visit Diagnoses Diagnosis Migraine without aura, not refractory documented in this encounter Additional Health Concerns Assessment Noted Time PHQ-9 Depression Total Score: 0 10/05/19 24 9:33 AM EDT documented as of this encounter Care Teams Pipeline Systems Operator Relationship Specialty Start Date End Date Ceci Billings MD [address] [place] [address] [phone] PCP - General Family Medicine 06/02/20 documented as of this encounter
--- OUTSIDE RECORDS SUMMARY | 2025-01-18 10:17 | XMS_ITS | Encounter Summary ---
Author Organization [employer] Address [address] 7[address] [place] [address] Care Team Providers Care Manager Inpatient Name Role Phone Ceci Billings MD Primary Care Provide r Reason for Visit * Reason Onset Date Comments Medication Question 03/12/2024 Encounter Details Date Type Department Care Team ([facility] [address] Contact Info) Description 03/12/2024 Telephone [facility] [address] [place] [address] Ceci Billings MD [address] [place] [address] Medication Question Social History Tobacco Use Types [...] questions on med PA . Callback number [phone] documented in this encounter Plan of Treatment Upcoming Encounters Date Type Department Care Team (Late st Contact Info) Description 03/19/2025 9:00 AM EST Office Visit [facility] [address] [place] [address] Ceci Billings MD [address] [place], [place] [phone] documented as of this encounter Visit Diagnoses Not on filedocumented in this encounter Additional Health Concerns Assessment Noted Time PHQ-9 Depression Total Score: 0 10/05/19 24 9:33 AM EDT documented as of this encounter Care Teams Manager Inpatient Relationship Specialty Start Date End Date Ceci Billings MD [address] [place] [address] PCP - General Family Medicine 06/02/20 documented as of this encounter
--- OUTSIDE RECORDS SUMMARY | 2025-01-18 10:18 | XMS_ITS | Encounter Summary ---
Author Organization [employer] Address [address] 7[address] [place] [address] Care Team Providers Care Cost Estimating Manager Name Role Phone Ceci Billings MD Primary Care Provide r Reason for Visit * Reason Comments Med Refill Encounter Details Date Type Department Care Team (Late st Contact Info) Description 11/30/2023 Refill [facility] [address] [place] [address] Ceci Billings MD [address] [place] [address] Muscle spasm Social History Tobacco Use Types [...] Description 03/19/2025 9:00 AM EST Office Visit [facility] [address] [place] [address] Ceci Billings MD [address] [place] [address] documented as of this encounter Visit Diagnoses Diagnosis Muscle spasm Spasm of muscle documented in this encounter Additional Health Concerns Assessment Noted Time PHQ-9 Depression Total Score: 0 10/05/19 24 9:33 AM EDT documented as of this encounter Care Teams Cost Estimating Manager Relationship Specialty Start Date End Date Ceci Billings MD [address] [place] [address] PCP - General Family Medicine 06/02/20 documented as of this encounter
--- OUTSIDE RECORDS SUMMARY | 2025-01-18 10:18 | XMS_ITS | Encounter Summary ---
Author Organization [employer] Address [address] [place] [address] 7t [place] [address] Care Team Providers Care Wildlife Ecologist Name Role Phone Ceci Billings MD Primary Care Provide r Reason for Visit * Reason Comments Med Refill Encounter Details Date Type Department Care Team (Late Contact Info) Description 12/02/[address] [facility] [address] [place] [address] Name, MD Yaniv [address] [place] [address] Insomnia, unspecified type Social History Tobacco Use [...] Upcoming Encounters Date Type Department Care Team ([facility] Contact Info) Description 03/19/2025 9:00 AM EST Office Visit [facility] [address] [place] [address] Ceci Billings MD [address] [place] [address] documented as of this encounter Visit Diagnoses Diagnosis Insomnia, unspecified type documented in this encounter Additional Health Concerns Assessment Noted Time PHQ-9 Depression Total Score: 0 08/07/19 23 9:07 AM EDT documented as of this encounter Care Teams Wildlife Ecologist Relationship Specialty Start Date End Date Ceci Billings MD 230 [place] [address] PCP - General Family Medicine 06/02/20 documented as of this encounter
--- OUTSIDE RECORDS SUMMARY | 2025-01-18 10:18 | XMS_ITS | Encounter Summary ---
Author Organization [employer] Address [address] [facility] [address] 7t [place] [address] Care Team Providers Care Real Estate Professor Name Role Phone Ceci Billings MD Primary Care Provide r Encounter Details Date Type Department Care Team (Late st Contact Info) Description 07/27/2023 Orders Only [facility] [address] [place] [address] Ceci Billings MD 230 [place] [address] Class 3 severe obesity with serious comorbidity [...] Description 03/19/2025 9:00 AM EST Office Visit [facility] [address] [place] [address] Ceci Billings MD [address] [place] [address] documented as of this encounter Visit Diagnoses Diagnosis Class 3 severe obesity with serious comorbidity and body mass index (BMI) of 45.0 to 49.9 in adult, unspecified obesity type- Primary documented in this encounter Additional Health Concerns Assessment Noted Time PHQ-9 Depression Total Score: 5 07/07/19 24 10:12 AM EDT documented as of this encounter Care Teams Real Estate Professor Relationship Specialty Start Date End Date Ceci Billings MD [address] [place] [phone] PCP - General Family Medicine 06/02/20 documented as of this encounter
== END 2025-01-18 10:36 | disposition home or self-care (01) ==
LOC: HO.HOS 09:25
PROVIDERS: PCP Internal Medicine; Visit Provider Physician Assistant
DX: M17.11 Unilateral primary osteoarthritis, right knee (principal); M19.011 Primary osteoarthritis, right shoulder
CPT/HCPCS: 20610; 99213

== ENCOUNTER → 2025-01-18 09:25 | Outpatient (BNVA) | payer MEDICARE, MEDICAID, SELFPAY | PROVIDERS: PCP Internal Medicine; Visit Provider Physician Assistant | DX: M19.011 Primary osteoarthritis, right shoulder (principal); M17.12 Unilateral primary osteoarthritis, left knee | CPT/HCPCS: 20610; 99212; J0665; J1100; J2003 ==

== ENCOUNTER 2025-01-25 08:31 | Outpatient (REF) | payer MEDICARE, MEDICAID, SELFPAY ==
--- OUTSIDE RECORDS SUMMARY | 2023-08-23 03:30 | XMS_ITS ---
Author Organization [facility] Address [address] [place] [id number] Care Team Providers Care Pump House Technician Name Role Phone Ceci Blackburn M.D. Primary Care Provider Lise johnson Emerson Canales Unavailable [phone] REASON FOR VISIT crohn's,screening,dysphagia,gerd Problems Problem Type SNOMED Code ICD Code Onset Dates Problem Status W/U Status Risk Notes Problem Chronic gastritis (6300676) Chronic gastritis (K29.50) Active confirmed Problem Gastroesophageal reflux disease (disorder) (391628695) Chronic GERD (K21.9) Active confirmed Encounters Encounter Location Date Provider Diagnosis [facility] [place] [address] [place] [phone] 08/23/2023 Emerson Canales Crohn's disease of both small and large intestine without complication K50.80 ; Other hemorrhoids K64.8 ; Chronic gastritis K29.50 ; Hiatal hernia K44.9 ; Chronic GERD K21.9 and Dysphagia R13.10 Assessments Encounter Date Diagnosis (ICD Code) Assessment Notes Treatment Notes Treatment Clinical Notes Section Notes 08/23/2023 Crohn's disease of both small and large intestine without complication (ICD-10 - K50.80) 08/23/2023 Other hemorrhoids (ICD-10 - K64.8) 08/23/2023 Chronic gastritis (ICD-10 - K29.50) 08/23/2023 Hiatal hernia (ICD-10 - K44.9) 08/23/2023 Chronic GERD (ICD-10 - K21.9) 08/23/2023 Dysphagia (ICD-10 - R13.10) Plan Of Treatment Next Appt Details Provider Name:Emerson Canales , 07/30/2025 09:10:00 AM, [address], [address], [place], [address], Progress Notes * STEPHIE DORSEYDOB: 7 (49 yo F)Acc No.[id number]:08/23/2023 EGD and COL/MAC Patient: STEPHIE POLLACK Provider: Olu Canales MD :1975 A ge:47 Y S ex:Female Date:08/23/2023 Address:[address] [place], [place] [phone] Pcp:Ceci Blackburn M.D. Subjective: * Chief Complaints: * 1 . Crohn's,screening,dysphagia,gerd. * Medical History: Objective: * Vitals: Assessment: * Assessment: 1. C rohn's disease of both small and large intestine without complication - K50.80 (Primary)? 2. O ther hemorrhoids - K64.8 3 . C hronic gastritis - K29.50 4 . H iatal hernia - K44.9 5 . C hronic GERD - K21.9 ? 6 . D ysphagia - R13.10 Plan: * Treatment: * Procedure Codes: 4 5380 COLONOSCOPY AND BIOPSY, 40688 UPPER GI ENDOSCOPY, BIOPSY, Modifiers: 51 * * The named appointment provid er may or may not be the originator of this progress note, and it is not deemed complete until electronically signed by the appointment provider. Sign off status: Pending * Provider: Olu Canales MD Date: 0 08/23/2023 Generated for Arpit ribeiro/Enmanuel/eTransmitting on: 1 08:52 AM EDT
--- OUTSIDE RECORDS SUMMARY | 2024-02-07 05:50 | XMS_ITS ---
Author Organization [facility] Address [address] [place] [phone] Care Team Providers Care Chief Engineer Production Name Role Phone Ceci Blackburn M.D. Primary Care Provider Emerson Schwartz [phone] REASON FOR VISIT Patient presents today for GERD, CROHN'S. Encounters Encounter Location Date Provider Diagnosis [facility] [address] [facility] [address] [place] [phone] 02/07/2024 Emerson Canales Plan Of Treatment Next Appt Details Provider Name:Emerson Canales , 07/30/2025 09:10:00 AM, [address] [place] [address], Suite [facility], [place], [address], Progress Notes * STEPHIE DORSEYDOB: [birth year] (49 yo F)Acc No.[id number]:02/07/2024 Progress Notes Patient: Halley STEPHIE NICK Provider: Olu Canales MD :1975 A ge:48 Y S ex:Female Date:02/07/2024 Address:[address] [place], [place] Pcp:Ceci Balckburn M.D. Subjective: * Chief Complaints: * 1 [...] Date: 1 Generated for Arpit ribeiro/Enmanuel/Daniel on: 08:51 AM EDT
--- OUTSIDE RECORDS SUMMARY | 2025-01-09 09:20 | XMS_ITS ---
Author Organization [facility] Address [address] [place] [address] Care Team Providers Care Die Cast Operator Name Role Phone Ceci Blackburn M.D. Primary Care Provider Emerson Schwartz Unavailable [phone] Allergies Allergen (clinical drug ingredient) Drug/Non Drug [...] DAILY NEEDED FOR DIARRHEA only prn-rare Active Rbhvyhmfvf-BMUC-Afir eine 50-325-40 MG TAKE 1 TO 2 [...] Status W/U Status Risk Notes Problem Constipation (97418683) Constipation (K59.00) Active confirmed Vital Signs Temperature 97.2 degrees Fahrenheit 01/10/20 25 Blood pressure systolic 001 mm Hg 01/10/20 25 Blood pressure diastolic 01 mm Hg 025 Height 65.5 in 01/09/2025 Weight 254.2 lbs 01/09/2025 BMI 41.65 kg/m2 01/09/2025 Encounters Encounter Location Date Provider Diagnosis [facility] [address] [place] [phone] 01/09/2025 Emerson Canales Crohns disease of jaquelin [...] regimen including MiraLAX, fiber supplement, and another mdyl-vby-ntspuwm stool softener such as Colace. I advised [...] regimen including MiraLAX, fiber supplement, and another kfbd-nfr-fhywwpu stool softener such as Colace. I advised [...] Provider Name:Emerson Canales , 07/30/2025 09:10:00 AM, [address] [place] [address] Drive, [address], [place], [address], Progress Notes * STEPHIE DORSEYDOB: [birth year] (49 yo F)Acc No.[id number]:01/09/2025 Progress Notes Patient: C HAVEZ, STEPHIE Provider: Olu Canales MD :1975 A ge:49 Y S ex:Female Date:01/09/2025 Address:[address] [place], [place] [phone] Pcp:Ceci Blackburn M.D. Subjective: * Chief Complaints: [...] colitis-diagnosed in 2000- colonoscopy in 02/2009 at [facility] with diffuse colitis/ileitis-has been treated with Remicade, Humira, and azathioprine in the past at [facility]- Stephie reports that the mesalamines and azathioprine seem to exacerbate her GI symptoms with gas and cramps- however, at those time she is usually having active Crohn's disease symptoms as well- -she [place] [facility] [place] for a flareup of the [...] 01/2019 for the Crohn's and psoriasis, Denies KS,DM,CVA,Lung disease,renal disease, Anemia- sees Dr. Pulido/Dr. Griffiths- [...] tablet Orally Once a day , Not-Taking/PRN Ysvdhtgomb-VDCR-Gaxgqbtf 50-325-40 MG Tablet TAKE 1 TO 2 [...] regimen including MiraLAX, fiber supplement, and another onkw-dei-czgvsco stool softener such as Colace. I advised [...] ietary management education, guidance, and counseling, B [place] management provided Y heather. * Follow Up: Leslie middleton 2025 * * The named appointment provid er may or may not be the originator of this progress note, and it is not deemed complete until electronically signed by the appointment provider. Sign off status: Pending * Provider: Olu Canales MD Date: 0 01/09/2025 Generated for Arpit ribeiro/Enmanuel/Heatheritting on: 08:51 AM EDT History and Physical Notes * [...]
--- NOTE | ~2025-01-25 | US_ITS ---
EXAMINATION: US LOWER EXTREMITY VENOUS (REFLUX EXAM), BILATERAL CLINICAL INFORMATION: I 87.2. Venous insufficiency chronic. Bilateral GSV RFA COMPARISON: None. TECHNIQUE: Color flow triplex imaging and compression Doppler was performed to evaluate both the deep and the superficial systems bilaterally. To evaluate the superficial system, the examination was performed in the upright position. Color-flow Doppler ultrasound and compression ultrasound were utilized. In addition, maneuvers were utilized to demonstrate reflux. FINDINGS: 1. DEEP VENOUS ULTRASOUND OF THE RIGHT LOWER EXTREMITY: Common Femoral Vein: Compressible, normal respiratory variation and augmented flow. Femoral Vein: Compressible, normal color flow and augmentation. Popliteal Vein: Compressible, normal augmentation. Deep Reflux: There is no evidence of reflux in the deep system in either the common femoral vein, superficial femoral or the popliteal vein. There is no evidence of a Mckeon's cyst. 2. SUPERFICIAL ULTRASOUND WITH DOPPLER OF RIGHT LOWER EXTREMITY: GREAT SAPHENOUS VEIN: Saphenofemoral Junction: 0.7 cm; Reflux: 0 ms Proximal Thigh: Status post RFA. Mid Thigh: Status post RFA. Distal Thigh: Status post RFA. At Knee: Status post RFA. Proximal Calf: Status post RFA. Mid Calf: 0.2 cm; Reflux: 1736 ms Distal Calf: 0.2 cm; Reflux: 0 ms DUPLICATED MEDIAL GREAT SAPHENOUS VEIN: Diameter: None imaged Reflux: NA DUPLICATED LATERAL GREAT SAPHENOUS VEIN: Diameter: 0.3 cm. Reflux: NA SMALL SAPHENOUS VEIN: Saphenopopliteal Junction: 0.9 cm; Reflux: 0 ms Proximal: 0.3 cm; Reflux: 0 ms Distal: 0.2 cm; Reflux: 0 ms VEIN OF GIACOMINI: Size: NA Reflux: NA PERFORATORS: Location: Mid thigh and proximal calf. Size: 0.2 cm. Reflux: NA VARICOSITIES: Location: None imaged. Size: NA Reflux: NA 3. DEEP VENOUS ULTRASOUND OF THE LEFT LOWER EXTREMITY: Common Femoral Vein: Compressible, normal respiratory variation and augmented flow. Femoral Vein: Compressible, normal color flow and augmentation. Popliteal Vein: Compressible, normal augmentation. Deep Reflux: There is no evidence of reflux in the deep system in either the common femoral vein, superficial femoral or the popliteal vein. There is no evidence of a Mckeon's cyst. 4. SUPERFICIAL ULTRASOUND WITH DOPPLER OF LEFT LOWER EXTREMITY: GREAT SAPHENOUS VEIN: Saphenofemoral Junction: 0.7 cm; Reflux: 0 ms Proximal Thigh: 0.2 cm; Reflux: 0 ms Mid Thigh: Status post RFA. Distal Thigh: Status post RFA. At Knee: Status post RFA. Proximal Calf: Status post RFA. Mid Calf: 0.2 cm; Reflux: 0 ms Distal Calf: 0.3 cm; Reflux: 0 ms DUPLICATED MEDIAL GREAT SAPHENOUS VEIN: Diameter: None imaged Reflux: NA DUPLICATED LATERAL GREAT SAPHENOUS VEIN: Diameter: 0.2 cm. Reflux: NA SMALL SAPHENOUS VEIN: Saphenopopliteal Junction: 0.3 cm; Reflux: 0 ms Proximal: 0.2 cm; Reflux: 0 ms Distal: 0.2 cm; Reflux: 0 ms VEIN OF GIACOMINI: Size: NA Reflux: NA PERFORATORS: Location: At the knee and proximal calf Size: 0.2 cm. Reflux: NA VARICOSITIES: Location: Small saphenous vein proximal segment. Size: 0.3 cm. Reflux: NA US/US venous duplex LE BI IMPRESSION: Right: Venous insufficiency, great saphenous vein at the mid calf. Left: No venous insufficiency. Perforators and varices without reflux. Electronically signed by: Bill Gavin MD 01/25/2025 10:12 AM EDT
--- OUTSIDE RECORDS SUMMARY | 2025-01-25 08:51 | XMS_ITS | Encounter Summary ---
Author Organization [employer] Address [address] [facility] [address] 7t [place] [address] Care Team Providers Care Drain Tiler Name Role Phone Ceci Billings MD Primary Care Provide r Reason for Visit * Reason Comments Med Refill Encounter Details Date Type Department Care Team (Late st Contact Info) Description 06/22/2024 Refill [facility] [place] [facility] 230 [place] [address] Ceci Billings MD 230 [place] [address] Migraine without aura, not refractory Social History [...] Description 03/19/2025 9:00 AM EST Office Visit [facility] [place] [facility] [address] [place] [address] Ceci Billings MD [address] [place] [address] documented as of this encounter Visit Diagnoses Diagnosis Migraine without aura, not refractory documented in this encounter Additional Health Concerns Assessment Noted Time PHQ-9 Depression Total Score: 0 10/05/19 24 9:33 AM EDT documented as of this encounter Care Teams Drain Tiler Relationship Specialty Start Date End Date Ceci Billings MD [address] [place] [address] [phone] PCP - General Family Medicine 06/02/20 documented as of this encounter
--- OUTSIDE RECORDS SUMMARY | 2025-01-25 08:51 | XMS_ITS | Encounter Summary ---
Author Organization [employer] Address [address] [facility] 7t [place] [address] Care Team Providers Care Parks Recreation Coordinator Name Role Phone Ceci Billings MD Primary Care Provide r Reason for Visit * Reason Comments Med Refill Encounter Details Date Type Department Care Team ([facility] Contact Info) Description 04/30/2022 Refill [facility] 230 [place] [address] Jesús Vale MD 230 [place] [address] Influenza-like illness Social History Tobacco Use Types [...] Upcoming Encounters Date Type Department Care Team ([facility] Contact Info) Description 03/19/2025 9:00 AM EST Office Visit [facility] [address] [place] [address] Ceci Billings MD [address] [place], [place] [phone] documented as of this encounter Visit Diagnoses Diagnosis Influenza-like illness documented in this encounter Care Teams Parks Recreation Coordinator Relationship Specialty Start Date End Date Ceci Billings MD 230 [place], [place] [phone] PCP - General Family Medicine 06/02/20 documented as of this encounter
--- OUTSIDE RECORDS SUMMARY | 2025-01-25 08:51 | XMS_ITS | Encounter Summary ---
Author Organization [employer] Address [address] [facility] [address] 7t [place] [address] Care Team Providers Care Wringer And Setter Name Role Phone Ceci Billings MD Primary Care Provide r Encounter Details Date Type Department Care Team ([facility] Contact Info) Description 04/23/2024 Orders Only [facility] 230 [place] [address] Ceci Billings MD 230 [place] [address] Social History Tobacco Use Types Packs/Day Years [...] Description 03/19/2025 9:00 AM EST Office Visit [facility] [address] [place] [address] Ceci Billings MD 230 [place] [address] documented as of this encounter Visit Diagnoses Not on filedocumented in this encounter Additional Health Concerns Assessment Noted Time PHQ-9 Depression Total Score: 0 10/05/19 24 9:33 AM EDT documented as of this encounter Care Teams Wringer And Setter Relationship Specialty Start Date End Date Ceci Billings MD [address] [place] [phone] PCP - General Family Medicine 06/02/20 documented as of this encounter
--- OUTSIDE RECORDS SUMMARY | 2025-01-25 08:51 | XMS_ITS | Clinical Summary ---
Author Organization [facility] Address 175 [place] [address] Phone Care Team Providers Care Investment Specialist Name Role Phone Katrina Sherwood MD Primary Care Provider [phone]- [phone] Allergies Active Allergy Reactions Criticality Noted Date [...] 1:15 PM EDT Office Visit [facility] [address] [phone] Juan Moody DPM Posterior tibial tendinitis of [...] 1:00 PM EDT Office Visit [facility] [address] [phone] Juan Moody DPM [address] [address] Health Maintenance Due Date Last Done Comments Breast Cancer Screening 1975 Colorectal Cancer Screening: Colonoscopy 1975 HIV Screening 03/23/2022 Hepatitis C Screening 03/23/2022 [...] or Tdap) 04/26/2033 04/26/2023, 07/13/2012, 12/17/1999 RSV Immunization Adult Patients (1 - 1-dose 75+ series) 09/12/2051 Hepatitis [...] EDT Plantar fasciitis LIPID PANEL Routine 08/06/2022 HPV Routine 11/09/2021 [...] Result * Cervical Cancer Screening: HPV (11/09/2021) Cervical Cancer Screening: HPV abstracted Historical Provider HEALTH MAINTENANCE Final Result from Last 3 Months or Most Recently Relevant to Health Maintenance Insurance MEDICAID - [place] MEDICARE Care Teams Investment Specialist Relationship Specialty Start Date End Date Nolan, MD Katrina [address] [place] [phone] PCP - General Internal Medicine 01/02/14
--- OUTSIDE RECORDS SUMMARY | 2025-01-25 08:51 | XMS_ITS | Encounter Summary ---
Author Organization [employer] Address [address] [facility] [address] 7t [place] [address] Care Team Providers Care Fish Icer Name Role Phone Ceci Billings MD Primary Care Provide r Reason for Visit * Reason Comments Med Refill Encounter Details Date Type Department Care Team (Late st Contact Info) Description 01/03/2024 Refill [facility] 230 [place] [address] Ceci Billings MD 230 [place] [address] Social History Tobacco Use Types Packs/Day Years [...] Description 03/19/2025 9:00 AM EST Office Visit [facility] [address] [place] [address] Ceci Billings MD 230 [place] [address] documented as of this encounter Visit Diagnoses Not on filedocumented in this encounter Additional Health Concerns Assessment Noted Time PHQ-9 Depression Total Score: 0 10/05/19 24 9:33 AM EDT documented as of this encounter Care Teams Fish Icer Relationship Specialty Start Date End Date Ceci Billings MD 230 [place] [address] PCP - General Family Medicine 06/02/20 documented as of this encounter
--- OUTSIDE RECORDS SUMMARY | 2025-01-25 08:51 | XMS_ITS | Encounter Summary ---
Author Organization [employer] Address [address] [facility] [address] 7t [place] [address] Care Team Providers Care City Constable Name Role Phone Ceci Billings MD Primary Care Provide r Encounter Details Date Type Department Care Team ([facility] Contact Info) Description 10/16/2024 Telephone [facility] 230 [place] [address] Ceci Billings MD 230 [place] [address] Social History Tobacco Use Types Packs/Day Years [...] Description 03/19/2025 9:00 AM EST Office Visit [facility] 230 [place] [address] Ceci Billings MD [address] [place] [address] documented as of this encounter Visit Diagnoses Not on filedocumented in this encounter Additional Health Concerns Assessment Noted Time PHQ-9 Depression Total Score: 0 09/08/19 9:03 AM EDT documented as of this encounter Care Teams City Constable Relationship Specialty Start Date End Date Ceci Billings MD [address] [place] [phone] PCP - General Family Medicine 06/02/20 documented as of this encounter
--- OUTSIDE RECORDS SUMMARY | 2025-01-25 08:51 | XMS_ITS | Encounter Summary ---
Author Organization [employer] Address [address] [facility] [address] 7[address] [place] [address] Care Team Providers Care Ios Programmer Name Role Phone Ceci Billings MD Primary Care Provide r Encounter Details Date Type Department Care Team (Late st Contact Info) Description 08/15/2024 Orders Only [facility] [address] [place] [address] Provider, MD Chito Social History Tobacco Use [...] Description 03/19/2025 9:00 AM EST Office Visit [facility] [address] [place] [address] Ceci Billings MD 230 [place] [address] documented as of this encounter Procedures Procedure [...] documented as of this encounter Care Teams Ios Programmer Relationship Specialty Start Date End Date Ceci Billings MD 230 [place] [address] PCP - General Family Medicine 06/02/20 documented as of this encounter
--- OUTSIDE RECORDS SUMMARY | 2025-01-25 08:51 | XMS_ITS | Encounter Summary ---
Author Organization [employer] Address [address] [facility] [address] 7[address] [place] [address] Care Team Providers Care Interactive Video Technician Name Role Phone Ceci Billings MD Primary Care Provide r Encounter Details Date Type Department Care Team (Late st Contact Info) Description 12/25/2024 Orders Only [facility] [address] [place] [address] Ceci Billings MD [address] [place] [address] Social History Tobacco Use Types Packs/Day Years [...] Description 03/19/2025 9:00 AM EST Office Visit [facility] [address] [place] [address] Ceci Billings MD [address] [place] [address] documented as of this encounter Visit Diagnoses Not on filedocumented in this encounter Additional Health Concerns Assessment Noted Time PHQ-9 Depression Total Score: 4 12/21/19 25 11:24 AM EDT documented as of this encounter Care Teams Interactive Video Technician Relationship Specialty Start Date End Date Ceci Billings MD 230 [place] [address] PCP - General Family Medicine 06/02/20 documented as of this encounter
--- OUTSIDE RECORDS SUMMARY | 2025-01-25 08:51 | XMS_ITS | Encounter Summary ---
Author Organization [employer] Address [address] [place] [address] 7t [place] [address] Care Team Providers Care Ekg/Ecg Technician Name Role Phone Ceci Billings MD Primary Care Provide r Encounter Details Date Type Department Care Team (Late st Contact Info) Description 05/27/[address] [facility] MEDICINE [address] [place] [phone] Ceci Billings MD [address] [place] [address] [phone] Social History Tobacco Use Types Packs/Day Years [...] Description 03/19/2025 9:00 AM EST Office Visit [facility] [address] [place] [address] Ceci Billings MD 230 [place], [place] [phone] documented as of this encounter Visit Diagnoses Not on filedocumented in this encounter Care Teams Ekg/Ecg Technician Relationship Specialty Start Date End Date Ceci Billings MD 230 [place] [address] PCP - General Family Medicine 06/02/20 documented as of this encounter
--- OUTSIDE RECORDS SUMMARY | 2025-01-25 08:51 | XMS_ITS | Encounter Summary ---
Author Organization [employer] Address [address] [facility] [address] 7t [place] [address] Care Team Providers Care Customer Logistics Manager Name Role Phone Ceci Billings MD Primary Care Provide r Reason for Visit * Reason Onset Date Comments Med Refill 10/02/2024 Encounter Details Date Type Department Care Team (Late st Contact Info) Description 10/02/2024 Refill [facility] [address] [place] [address] Ceci Billings MD 230 [place] [address] Morbid obesity (CMS/HCC) Social History Tobacco Use [...] AM EST Office Visit [facility] [address] [place] [address] Ceci Billings MD [address] [place] [address] documented as of this encounter Visit Diagnoses Diagnosis Morbid obesity (CMS/HCC) (HCC) Morbid obesity documented in this encounter Additional Health Concerns Assessment Noted Time PHQ-9 Depression Total Score: 0 09/08/19 9:03 AM EDT documented as of this encounter Care Teams Customer Logistics Manager Relationship Specialty Start Date End Date Ceci Billings MD [address] [place] [address] [phone] PCP - General Family Medicine 06/02/20 documented as of this encounter
--- OUTSIDE RECORDS SUMMARY | 2025-01-25 08:51 | XMS_ITS | Encounter Summary ---
Author Organization [employer] Address [address] [facility] [address] 7t [place] [address] Care Team Providers Care Card Writer Hand Name Role Phone Ceci Billings MD Primary Care Provide r Encounter Details Date Type Department Care Team (Late st Contact Info) Description 07/03/2024 Orders Only [facility]S [address] [place] [address] Provider, MD Chito Social History Tobacco Use [...] 9:00 AM EST Office Visit [facility] MEDICINE 230 [place] [address] Ceci Billings MD [address] [place] [address] documented as of this encounter Procedures Procedure [...] PM EDT Narrative 07/20/2024 4:18 PM EDT [facility] [address] [place] [address] Mammography Report Signed Patient: Windy Mcfarlane MR# : [id number] : 1975 Acct:[id number] Age/Sex: 48 / F ADM Date: 07/12/24 Loc: HO.MAMMO Attending Dr: Ceci Peacock MD Ordering Physician: Ceci Billings MD Results: 2Benign Findings Date of Service: 07/12/24 Follow Up: 1 Year From Orig inal Mammogram Procedure(s): MM tomosynthesis screening BI Accession Number(s): [id number] cc: Ceci Billings MD EXAMINATION: MM SCREENING [...] 07/20/24 1614 DD/ 1345 TD/TT: 07/12/24 1401 Superintendent Production: Procedure Note Donotuseinterpreter, Image - 07/20/2024 Yenn[place] [facility] [address] [place] [address] Mammography Report Signed Patient: Windy McfarlaneMR# : [id number] : 1975Acct:[id number] Age/Sex: 48 / FADM Date: 07/12/24 Loc: HO.MAMMO Attending Dr: Ceci Peacock MD Ordering Physician: Ceci Billings MDResults: 2Benign Findings Date of Service: 07/12/24Follow Up: 1 Year From Orig inal Mammogram Procedure(s): MM tomosynthesis screening BI Accession Number(s): [id number] cc: Ceci Billings MD EXAMINATION: MM SCREENING [...] 07/20/24 1614 DD/ 1345 TD/TT: 07/12/24 1401 Superintendent Production: us Ceci Peacock MD IMG BI PROCEDURES Fin al Result * Bacterial Vaginosis (07/03/2024 12:00 AM EDT) TRICHOMONAS VAGINALIS DETECTION BY PCR NOT DETECTED Not Detect [facility] BACTERIAL VAGINOSIS DETECTION BY PCR NEGATIVE Negative [facility] Comment:The BV organism targ ets [...] DETECTION BY PCR NOT DETECTED Not Detect [facility] Jeni glab krusei PCR NOT DETECTED Not Detect [facility] 07/03/2024 07/03/2024 us Generic External Data Provider LAB MICROBIOLOGY - GENERAL ORDERABLES Final Result [facility] [address] [place] [address] [phone] * Chlamydia/N. Gonorrhoeae RNA, TMA, Urogenitial (07/03/2024 12:00 AM EDT) CT PCR NOT DETECTED Not Detect. [facility] Comment:A not detected test result [...] psychologicalconsequences. NG PCR NOT DETECTED Not Detect. [facility] Comment:A not detected test result [...] medical, social or psychologicalconsequences. 07/03/2024 07/03/2024 Narrative [facility] - 07/04/2024 5:16 AM EDT Vaginal us Generic External Data Provider LAB MICROBIOLOGY - GENERAL ORDERABLES Final Result [facility] [address] [place] [address] [phone] * Colonoscopy (08/23/2023 11:53 AM EDT) us Historical Provider HEALTH MAINTENANCE Final Result documented in this encounter Visit Diagnoses Not on filedocumented in this encounter Additional Health Concerns Assessment Noted Time PHQ-9 Depression Total Score: 0 10/05/19 24 9:33 AM EDT documented as of this encounter Care Teams Card Writer Hand Relationship Specialty Start Date End Date Ceci Billings MD [address] [place] [phone] PCP - General Family Medicine 06/02/20 documented as of this encounter
--- OUTSIDE RECORDS SUMMARY | 2025-01-25 08:51 | XMS_ITS | Clinical Summary ---
Author Organization [employer] Address [address] [place] [address] 7t [place] [address] Care Team Providers Care Donor Center Technician Name Role Phone Ceci Billings MD [...] and swelling). 30 g 04/26/19 24 Active docusate sodium (Colace) 100 MG capsuleIndicatio ns:Crohn's disease of both small and large intestine without complication (HCC) Take 1 capsule (100 mg) by mouth 2 times daily. 180 capsule 10/31/19 24 Active albuterol (Ventolin HFA) 108 (90 Base) MCG/ACT inhalerIndicatio ns:Mild persistent asthma without complication INHALE 2 PUFFS BY MOUTH THREE TIMES DAILY NEEDED 18 g 3 03/07/20 24 Active famotidine (Pepcid) 20 MG tabletIndication s:Heartburn Take 1 tablet (20 mg) by mouth 2 times daily. 60 tablet 11 04/24/20 24 025 Active Tirzepatide-Mackg ht Management (Zepbound) 10 MG/0.5ML solution auto-injectorInd ications:Class 3 severe obesity with serious comorbidity and body mass index (BMI) of 45.0 to 49.9 in adult, unspecified obesity type (HCC) Inject 0.5 mL (10 mg) under the skin 1 (one) time per week. 2 mL 1 08/23/19 25 Active fluticasone furoate (Arnuity Ellipta) 100 MCG/ACT inhalerIndicatio ns:Mild persistent asthma without complication Inhale 1 puff Once per day. Rinse mouth with water after use to reduce aftertaste and incidence of candidiasis. Do not swallow. 1 each 09/08/19 25 026 Active senna (Senokot) 8.6 MG tabletIndication s:Crohn's disease of both small and large intestine without complication (HCC) Take 2 tablets (17.2 mg) by mouth 2 times daily. 360 tablet 1 09/08/19 25 Active acetaminophen (Tylenol 8 Hour) 650 MG ER tabletIndication s:Lumbar radiculopathy, chronic TAKE 2 TABLETS(1300 MG) BY MOUTH EVERY 8 HOURS NEEDED FOR MILD PAIN. DO NOT CRUSH, CHEW, OR SPLIT 40 tablet 09/20/19 25 Active propranolol (Inderal) 20 MG tabletIndication s:Migraine without aura, not refractory TAKE 1 TABLET(20 MG) BY MOUTH EVERY DAY 90 tablet 1 09/26/19 25 Active zolpidem (Ambien) 10 MG tabletIndication s:Insomnia, unspecified type TAKE 1 TABLET BY MOUTH AT BEDTIME 30 tablet 1 10/18/19 25 Active fexofenadine (Allergy Relief) 180 MG tablet TAKE 1 TABLET BY MOUTH EVERY DAY NEEDED 90 tablet 10/18/19 25 Active dicyclomine (Bentyl) 20 MG tabletIndication s:Crohn's disease of both small and large intestine without complication (HCC) TAKE 1 TABLET BY MOUTH IF NEEDED IN THE MORNING, AT NOON, AND AT BEDTIME 90 tablet 1 12/15/19 25 Active gabapentin (Neurontin) 600 MG tabletIndication s:Lumbar radiculopathy, chronic Take 1 tablet (600 mg) by mouth 3 times daily. 90 tablet 2 12/21/19 25 026 Active Tirzepatide-Weig ht Management (Zepbound) 12.5 MG/0.5ML solution auto-injectorInd ications:BMI 40.0-44.9, adult (CMS/HCC) (HCC) Inject 0.5 mL (12.5 mg) under the skin 1 (one) time per week. INJECT ONE PEN (=12.5 MG) SUBCUTANEOUSLY ONCE A WEEK 2 mL 12/21/19 25 Active Active Problems Problem Noted Date Diagnosed Date [...] appointment I will inquie about PA for natividads Assessment & Plan (10/05/2023 12:37 PM EDT): [...] Controlled continue with same interventions Severe obesity (CMS/HCC) 08/05/2022 Multiple joint pain 08/05/2022 Hand pain [...] to 20 mmHg, continue to follow-up with compounder flavorings Mild persistent asthma 03/01/2016 Osteopenia 03/01/2016 Allergic rhinitis 06/20/2015 Anemia 06/20/2015 Crohn's disease of small and large intestines Assessment & Plan (09/07/2024 10:45 AM EDT): Follow-up with GI Erythema nodosum 06/20/2015 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 [address] [place] [address] Ceci Billings MD Prior Authorization 12/25/[address] [facility] [address] [place] [address] Ceci Billings MD 12/25/[address] [facility] [address] [place] [phone] Ceci Billings MD 12/20/2024 11:15 AM EDT Office Visit [facility] [address] [place] [phone] Ceci Billings MD Obstructive sleep apnea syndrome (Primary Dx); Lumbar radiculopathy, chronic; Moderate persistent asthma, unspecified whether complicated; Morbid obesity ([facility]); Chronic hip pain, bilateral; Venous insufficiency; BMI 40.0-44.9, adult ([facility]) 12/20/[address] [facility] [address] [place] [address] Ceci Billings MD 12/20/[address] [facility] [address] [place] [address] Ceci Billings MD Durable Medical Equipment (DME RX Compression Stockings(L&C)) 12/20/2024 Travel 12/19/2024 Travel 12/19/[address] [address] Ceci Billings MD chart prep 12/13/[address] [facility] [address] [place] [phone] Ceci Billings MD Crohn's disease of both small and large intestine without complication ([facility]) 12/13/[address] [facility] [address] [place] [phone] Ceci Billings MD Neuropathy 12/04/[address] [facility] [address] [place] [phone] Ceci Billings MD Appointment Request 10/31/[address] [facility] [address] [place] [address] Ceci Billings MD Multiple joint pain from Last 3 Months Immunizations Immunization Administration [...] 03/19/2025 9:00 AM EST Office Visit [facility] [address] [place] [address] Ceci Billings MD [address] [place], [place] [phone] Health Maintenance Due Date Last Done Comments CT Colonography 1976 FIT DNA/Cologuard 1976 FIT 1976 FOBT 1975 HIV Screening 1975 Sigmoidoscopy 1975 Family Planning (PISQ) 09/12/1991 Hepatitis C Screening 1994 COVID-19 Vaccine ( - season) 2024 08/19/2020, 07/11/2020 Influenza Vaccine (#1) [...] HM PAP/HPV Routine 07/03/2024 11:57 AM EDT HM [...] 2:25 PM EDT) Triglycerides 63 <150 mg/dL [facility] Comment:Desirable Triglyceri de: less than 150 mg/dLBorderline High Triglyceride 150-199 mg/dLHigh Triglyceride: 200-499 mg/dLVery High Triglyceride: greater than or equal to 5OO mg/dL Cholesterol 154 <200 mg/dL [facility] Comment:Desirable Cholestero l: less than 200 mg/dLBorderline High Cholesterol: 200-239 mg/dLHigh Cholesterol: greater than 239 mg/dL LDL Cholesterol Calculated 92 <100 mg/dL [facility] Comment:Desirable LDL: less than 100 mg/dLNear Optimal/Above Optimal LDL: 110- 129 mg/dLBorderline High LDL: 130-159 mg/dLHigh LDL: 160-189 mg/dLVery High LDL: greater than or equal to 190 mg/dL HDL Cholesterol 50 >40 mg/dL [facility] Comment:Desirable HDL: great er than 40 mg/dL Note: This HDL assay may give artificially low results in patients with liver disease. Blood Venous blood specimen / Unknown 08/07/2024 2:25 PM EDT 08/07/2024 4:10 PM EDT us Ceci Peacock MD LAB BLOOD ORDERABLES Final Result Performing Organization Address City/State/[facility] Co de Phone Number [facility] [address] [place] [phone] * BI Mammogram Screening Tomosynthesis Bilateral (07/12/2024 1:45 PM EDT) Anatomical Region Laterality Modality Breast Bilateral Mammography 07/12/2024 1:45 PM EDT Narrative 07/20/2024 4:18 PM EDT [address] [place] [address] Mammography Report Signed Patient: Windy Mcfarlane MR# : [id number] : 1975 Acct:[id number] Age/Sex: 48 / F ADM Date: 07/12/24 Loc: HO.MAMMO Attending Dr: Ceci Peacock MD Ordering Physician: Ceci Billings MD Results: 2Benign Findings Date of Service: 07/12/24 Follow Up: 1 Year From Orig inal Mammogram Procedure(s): MM tomosynthesis screening BI Accession Number(s): [id number] cc: Ceci Billings MD EXAMINATION: MM SCREENING [...] 07/20/24 1614 DD/ 1345 TD/TT: 07/12/24 1401 [facility] Lead: Procedure Note Donotuseinterpreter, Image - 07/20/2024 [facility] [address] [place] [address] Mammography Report Signed Patient: Windy McfarlaneMR# : [id number] : 1975Acct:[id number] Age/Sex: 48 / FADM Date: 07/12/24 Loc: HO.MAMMO Attending Dr: Ceci Peacock MD Ordering Physician: Ceci Billings MDResults: 2Benign Findings Date of Service: 07/12/24Follow Up: 1 Year From Orig inal Mammogram Procedure(s): MM tomosynthesis screening BI Accession Number(s): [id number] cc: Ceci Billings MD EXAMINATION: MM SCREENING [...] 07/20/24 1614 DD/ 1345 TD/TT: 07/12/24 1401 Cognos Lead: Ceci Peacock MD IMG BI PROCEDURES Fin al Result * HM PAP/HPV (07/03/2024 11:57 AM EDT) Historical Provider HEALTH MAINTENANCE Final Result * Hm Colonoscopy (08/23/2023 11:53 AM EDT) Historical Provider HEALTH MAINTENANCE Final Result * HPV E6/E7 RFLX JESSICA 16 18/45 (11/09/2021 2:40 PM EDT) HPV mRNA E6/E7 rflx Not Detected Not Detected [facility] Comment: Methodology: Electrical Equipment Technician-Mediated Amplification This assay detects E6/E7 viral messenger RNA (mRNA) from 14 high-risk HPV types (16,18,31,33,35,39,45,51,52,56,58,59,66,68). Cervical sources are required for HPV testing. If a vaginal source from a patient who has had a total hysterectomy with removal of cervix was submitted, please contact the testing laboratory for alternative testing options. For additional information, please refer to http://education.Oppex/faq/PSE320x3 (This link if provided for information/ educational purposes only.) THIS TEST WAS PERFORMED AT: [employer] [address] [place] [address] [address],[place] [address] TIN DICKEY MD 11/09/2021 2:40 PM EDT us Kylee [place] HISTORICAL/NON ORDERABLE LABS Fi nal Result [facility] Formerly [facility] [address] from Last 3 Months or Most Recently Relevant to Health Maintenance Insurance MEDICARE [facility] STANDARD Care Teams Donor Center Technician Relationship Specialty Start Date End Date Ceci Billings MD [address] [place] [phone] PCP - General Family Medicine 06/02/20
--- OUTSIDE RECORDS SUMMARY | 2025-01-25 08:51 | XMS_ITS | Encounter Summary ---
Author Organization [employer] Address [address] [facility] 7t [place] [address] Care Team Providers Care Spiral Winding Machine Helper Name Role Phone Ceci Billings MD Primary Care Provide r Reason for Visit * Reason Onset Date Comments Med Refill 10/31/2024 Encounter Details Date Type Department Care Team (Late st Contact Info) Description 10/31/2024 Refill [facility] [address] [place] [address] Ceci Billings MD [address] [place] [address] Multiple joint pain Social History Tobacco Use [...] Description 03/19/2025 9:00 AM EST Office Visit [facility] [address] [place] [phone] Ceci Billings MD [address] [place] [address] documented as of this encounter Visit Diagnoses Diagnosis Multiple joint pain Pain in joint, multiple sites documented in this encounter Additional Health Concerns Assessment Noted Time PHQ-9 Depression Total Score: 0 09/08/19 25 9:03 AM EDT documented as of this encounter Care Teams Spiral Winding Machine Helper Relationship Specialty Start Date End Date Ceci Billings MD [address] [place] [address] PCP - General Family Medicine 06/02/20 documented as of this encounter
--- OUTSIDE RECORDS SUMMARY | 2025-01-25 08:51 | XMS_ITS | Encounter Summary ---
Author Organization [employer] Address [address] [facility] [address] 7t [place] [address] Care Team Providers Care Data Base Design Analyst Name Role Phone Ceci Billings MD Primary Care Provide r Reason for Visit * Reason Onset Date Comments Medication Question 03/12/2024 Encounter Details Date Type Department Care Team ([facility] Contact Info) Description 03/12/2024 Telephone [facility] [address] [place] [address] Ceci Billings MD [address] [place] [address] Medication Question Social History Tobacco Use Types [...] questions on med PA . Callback number [phone] documented in this encounter Plan of Treatment Upcoming Encounters Date Type Department Care Team (Late st Contact Info) Description 03/19/2025 9:00 AM EST Office Visit [facility] [address] [place] [address] Ceci Billings MD [address] [place], [place] [phone] documented as of this encounter Visit Diagnoses Not on filedocumented in this encounter Additional Health Concerns Assessment Noted Time PHQ-9 Depression Total Score: 0 10/05/19 24 9:33 AM EDT documented as of this encounter Care Teams Data Base Design Analyst Relationship Specialty Start Date End Date Ceci Billings MD [address] [place] [address] PCP - General Family Medicine 06/02/20 documented as of this encounter
--- OUTSIDE RECORDS SUMMARY | 2025-01-25 08:52 | XMS_ITS | Encounter Summary ---
Author Organization [employer] Address [address] [facility] [address] 7t [place] [address] Care Team Providers Care Gas Distribution Supervisor Name Role Phone Ceci Billings MD Primary Care Provide r Encounter Details Date Type Department Care Team (Late st Contact Info) Description 07/27/2023 Orders Only [facility] [address] [place] [address] Ceci Billings MD [address] [place] [address] Class 3 severe obesity with serious comorbidity [...] Office Visit [facility] [address] [place] [address] Ceci Billings MD [address] [place] [address] documented as of this encounter Visit Diagnoses Diagnosis Class 3 severe obesity with serious comorbidity and body mass index (BMI) of 45.0 to 49.9 in adult, unspecified obesity type (HCC)- Primary documented in this encounter Additional Health Concerns Assessment Noted Time PHQ-9 Depression Total Score: 5 07/07/19 24 10:12 AM EDT documented as of this encounter Care Teams Gas Distribution Supervisor Relationship Specialty Start Date End Date Ceci Billings MD [address] [place] [address] PCP - General Family Medicine 06/02/20 documented as of this encounter
--- OUTSIDE RECORDS SUMMARY | 2025-01-25 08:52 | XMS_ITS | Encounter Summary ---
Author Organization [employer] Address [address] [place] [address] 7t [place] [address] Care Team Providers Care Soda Fountain Clerk Name Role Phone Ceci Billings MD Primary Care Provide r Reason for Visit * Reason Comments Med Refill Encounter Details Date Type Department Care Team (Late Contact Info) Description 12/02/2022 Refill [facility] [address] [place] [address] Name, MD Yaniv [address] [place] [address] Insomnia, unspecified type Social History Tobacco Use [...] Upcoming Encounters Date Type Department Care Team ([facility] Contact Info) Description 03/19/2025 9:00 AM EST Office Visit [facility] [address] [place] [address] Ceci Billings MD [address] [place] [address] documented as of this encounter Visit Diagnoses Diagnosis Insomnia, unspecified type documented in this encounter Additional Health Concerns Assessment Noted Time PHQ-9 Depression Total Score: 0 08/07/19 23 9:07 AM EDT documented as of this encounter Care Teams Soda Fountain Clerk Relationship Specialty Start Date End Date Ceci Billings MD [address] [place] [address] PCP - General Family Medicine 06/02/20 documented as of this encounter
--- OUTSIDE RECORDS SUMMARY | 2025-01-25 08:52 | XMS_ITS | Encounter Summary ---
Author Organization [employer] Address [address] 7t [place] [address] Care Team Providers Care Multimedia Coordinator Name Role Phone Ceci Billings MD Primary Care Provide r Reason for Visit * Reason Comments Med Refill Encounter Details Date Type Department Care Team (Late st Contact Info) Description 07/18/2024 Refill [facility] [address] [place] [address] Ceci Billings MD [address] [place] [address] Social History Tobacco Use Types Packs/Day Years [...] Description 03/19/2025 9:00 AM EST Office Visit [facility] [address] [place] [address] Ceci Billings MD [address] [place] [address] documented as of this encounter Visit Diagnoses Not on filedocumented in this encounter Additional Health Concerns Assessment Noted Time PHQ-9 Depression Total Score: 0 10/05/19 24 9:33 AM EDT documented as of this encounter Care Teams Multimedia Coordinator Relationship Specialty Start Date End Date Ceci Billings MD [address] [place] [address] PCP - General Family Medicine 06/02/20 documented as of this encounter
--- OUTSIDE RECORDS SUMMARY | 2025-01-25 08:52 | XMS_ITS | Patient Health Record ---
Author Organization [facility] Address [address] [place] [address] Care Team Providers Care Assistant Chief Train Dispatcher Name Role Phone Ceci Blackburn M.D. Primary Care Provider Emerson Schwartz [phone] Allergies Allergen (clinical drug ingredient) Drug/Non Drug Allergy documented on EMR Reaction Allergy Type Onset Date Status vancomycin Vancomycin HCl Unknown Drug Allergy A ctive ciprofloxacin cipro (uncoded) Unknown Allergy Active Results Component Value Reference Range Notes Complete Blood Count Auto Di ff Reviewed date:04/09/2024 10:38:42 PM Interpretation: Performing Lab:[facility], [address] [place] [phone] Notes/Report: White Blood Count 5.2 4.8-10.8 X10*3/uL [...] Reviewed date:04/04/2024 01:40:57 PM Interpretation: Performing Lab:[address] [address] Notes/Report: Bilirubin Total 0.2 0.0-1.0 mg/dL Bilirubin Direct < 0.2 0.0-0.5 mg/dL Aspartate Amino Transferase 22 5-31 U/L Alanine Aminotransferase 34 0-31 U/L Total Protein 7.2 6.5-8.0 g/dL Albumin Level 3.7 3.5-5.0 g/dL Alkaline Phosphatase 71 39-117 U/L Dakota AVINA Reviewed date:06/05/2024 05:15:56 PM Interpretation: Performing Lab:[address] [address] Notes/Report: Dakota AVINA SEE NOTE SEE SCA [...] 400 MG Oral for 30 Days Active Hqpmjrkzxt-LUXV-Eyop eine 50-325-40 MG TAKE 1 TO 2 [...] Status Risk Notes Problem Colon cancer screening (523743170) Colon cancer screening (Z12.11) Active confirmed Problem Irritable bowel syndrome (24260098) Irritable bowel syndrome (K58.9) Active confirmed Problem Constipation (99513353) Constipation (K59.00) Active confirmed Problem 23558951 Crohn's disease of both small and large intestine without complication (K50.80) Active confirmed Problem 532022282 Nausea (R11.0) Active confirmed Problem 810435972 Encounter for therapeutic drug level monitoring (Z51.81) Active confirmed Problem Dysphagia (96309213) Dysphagia (R13.10) Active confirmed Problem 83546227 Crohns disease o f both small and large intestine without complication (K50.80) Active confirmed Problem 713934735 Gastroesophageal reflux disease, esophagitis presence not specified (K21.9) Active confirmed Problem Chronic gastritis (7582995) Chronic gastritis (K29.50) Active confirmed Problem 37118886 Diarrhea, unspecified type (R19.7) Active confirmed Problem 89299909 Crohn''s disease of both small and large intestine without complication (K50.80) Active confirmed Problem 78140268 Erythematous ski n nodule (R22.9) Active confirmed Problem 90944548 Vaginal candidiasis (B37.3) Active confirmed Problem Drug monitoring done (830951147) Encounter for therapeutic drug monitoring (Z51.81) Active confirmed Problem Gastroesophageal reflux disease (disorder) (930750655) Chronic GERD (K21.9) Active confirmed Vital Signs Temperature 97.2 degrees Fahrenheit 01/09/2025 Blood pressure diastolic 01 mm Hg 01/09/2025 Height 65.5 in 01/09/2025 Blood pressure systolic 001 mm Hg 01/09/2025 Weight 254.2 lbs 01/09/2025 BMI 41.65 kg/m2 01/09/2025 Encounters Encounter Location Date Provider Diagnosis [facility] [address] [place] [phone] 01/09/2025 Emerson Canales Crohns disease of jaquelin th small and large intestine without complication K50.80 and Constipation K59.00 [facility] [address] [place] [phone] 06/05/2024 Emerson Canales Crohn's disease of both small and large intestine without complication K50.80 ; Irritable bowel syndrome K58.9 ; Chronic GERD K21.9 and Vaginal candidiasis B37.3 [facility] [address] [place] [phone] 02/03/2024 Emerson Canales [facility] [address] [place] [phone] 02/03/2024 Emerson Canales Crohn''s disease of both small and large intestine without complication K50.80 and Encounter for therapeutic drug monitoring Z51.81 [facility] [address] [place] [phone] 05/01/2024 Emerson Canales [facility] [address] [place] [phone] 06/05/2024 Emerson Canales [facility] [address] [place] [phone] 06/14/2024 Emerson Canales [facility] [address] [place] [phone] 06/22/2024 Emerson Canales [facility] [address] [place] [phone] 10/24/2024 Emerson Canales Assessments Encounter Date Diagnosis [...] regimen including MiraLAX, fiber supplement, and another pvib-qgq-mmszofa stool softener such as Colace. I advised [...] regimen including MiraLAX, fiber supplement, and another odxe-eis-scslnbt stool softener such as Colace. I advised [...] B12 AND FOLATE 08/13/2021 CBC w DIFF 04/01/2015 CBC w DIFF 08/13/2021 CBC w DIFF 10/17/2018 CBC w DIFF 02/03/2024 CBC w DIFF 07/08/2013 CBC w DIFF 12/11/2017 CBC w DIFF 11/03/2015 CBC w DIFF 05/09/2014 CBC w DIFF 01/08/2021 CBC w DIFF 07/11/2017 CBC w DIFF 01/24/2018 CBC w DIFF 07/10/2020 CBC w DIFF 07/12/2016 CBC w DIFF 07/15/2016 CBC w/o DIFF 05/23/2019 SED RATE (ESR) 01/24/2018 SED RATE (ESR) 08/13/2021 SED RATE (ESR) 01/08/2021 OTHER REF LAB TEST - MISC 07/12/2016 [...] 09:10:00 AM, [address], [address], [place], [address], Insurance Providers Payer Name Payer Address Payer Phone Subscriber Number Group Number Insured Name Patient Relationship to Insured Coverage Start Date Coverage End Date MEDICARE OF [place] [address] [place] [address] [phone] [id number] STEPHIE DORSEY Self - patient is the insured [place] [employer] [address] [place] [id number] STEPHIE DORSEY Self - patient is the [...] symptoms as well- -she was [place] [facility] [place] for a flareup of the [...] 01/2019 for the Crohn's and psoriasis Denies MD,DM,CVA,Lung disease,renal dise ase Anemia- sees Dr. Pulido/Dr. [...]
--- OUTSIDE RECORDS SUMMARY | 2025-01-25 08:52 | XMS_ITS | Encounter Summary ---
Author Organization [employer] Address [address] [place] [address] Care Team Providers Care Enterprise Resource Analyst Name Role Phone Ceci Billings MD Primary Care Provide r Reason for Visit * Reason Comments Med Refill Encounter Details Date Type Department Care Team (Late st Contact Info) Description 11/30/[address] [facility] [address] [place] [address] Ceci Billings MD [address] [place] [address] Muscle spasm Social History Tobacco Use Types [...] 03/19/2025 9:00 AM EST Office Visit [facility] [address] [place] [address] Ceci Billings MD [address] [place] [address] documented as of this encounter Visit Diagnoses Diagnosis Muscle spasm Spasm of muscle documented in this encounter Additional Health Concerns Assessment Noted Time PHQ-9 Depression Total Score: 0 10/05/19 24 9:33 AM EDT documented as of this encounter Care Teams Enterprise Resource Analyst Relationship Specialty Start Date End Date Ceci Billings MD [address] [place] [address] PCP - General Family Medicine 06/02/20 documented as of this encounter
== END 2025-01-25 08:32 | disposition home or self-care (01) ==
LOC: HO.US 08:31
PROVIDERS: PCP Internal Medicine; Visit Provider Nurse Practitioner Family
DX: I87.2 Venous insufficiency (chronic) (peripheral) (principal)
CPT/HCPCS: 93970

== ENCOUNTER → 2025-01-25 08:33 | Outpatient (BNV) | payer MEDICARE, MEDICAID, SELFPAY | PROVIDERS: PCP Internal Medicine; Visit Provider Radiology Diagnostic Radiology | DX: I83.813 Varicose veins of bilateral lower extremities with pain (principal) | CPT/HCPCS: 93970 ==

== ENCOUNTER 2025-02-07 13:21 | Outpatient (AMB) | payer MEDICARE, MEDICAID, SELFPAY ==
--- OUTSIDE RECORDS SUMMARY | 2023-08-23 03:30 | XMS_ITS ---
Author Organization [facility] Address [address] [place] [phone] Care Team Providers Care Process Worker Name Role Phone Ceci Blackburn M.D. Primary Care Provider Lise johnson Emerson Canales Unavailable [phone] REASON FOR VISIT crohn's,screening,dysphagia,gerd Problems Problem Type SNOMED Code ICD Code Onset Dates Problem Status W/U Status Risk Notes Problem Chronic gastritis (9872953) Chronic gastritis (K29.50) Active confirmed Problem Gastroesophageal reflux disease (disorder) (278543784) Chronic GERD (K21.9) Active confirmed Encounters Encounter Location Date Provider Diagnosis [facility] [place] [address] [place] [phone] 08/23/2023 Emerson Canales Crohn's disease of both [...] 09:10:00 AM, [address], [address], [place], [address], Progress Notes * STEPHIE DORSEYDOB: 7 (49 yo F)Acc No.[id number]:08/23/2023 EGD and COL/MAC Patient: STEPHIE POLLACK Provider: Olu Canales MD :1975 A ge:47 Y S ex:Female Date:08/23/2023 Address:[address] [place], [place] [phone] Pcp:Ceci Blackburn M.D. Subjective: * Chief Complaints: [...] Procedure Codes: 4 5380 COLONOSCOPY AND BIOPSY, [address] UPPER GI ENDOSCOPY, BIOPSY, Modifiers: 51 * * The named appointment provid er may or may not be the originator of this progress note, and it is not deemed complete until electronically signed by the appointment provider. Sign off status: Pending * Provider: Olu Canales MD Date: 0 08/23/2023 Generated for Arpit ribeiro/Enmanuel/eTransmitting on: 1 04:46 PM EDT
--- OUTSIDE RECORDS SUMMARY | 2024-02-07 05:50 | XMS_ITS ---
Author Organization [facility] Address [address] [place] [phone] Care Team Providers Care Matching Machine Operator Name Role Phone Ceci Blackburn M.D. Primary Care Provider Emerson Schwartz [phone] REASON FOR VISIT Patient presents today for GERD, CROHN'S. Encounters Encounter Location Date Provider Diagnosis [facility] [address] [facility] [address] [place] [phone] 02/07/2024 Emerson Canales Plan Of Treatment Next Appt Details Provider Name:Emerson Canales , 07/30/2025 09:10:00 AM, [address] [place] [address], Suite [facility], [place], [address], Progress Notes * STEPHIE DORSEYDOB: 7 (49 yo F)Acc No.[id number]:02/07/2024 Progress Notes Patient: Halley STEPHIE NICK Provider: Olu Canales MD :1975 A ge:48 Y S ex:Female Date:02/07/2024 Address:[address] [place], [place] Pcp:Ceci Blackburn M.D. Subjective: * Chief Complaints: [...] Date: 1 Generated for Arpit ribeiro/Enmanuel/Daniel on: 04:46 PM EDT
--- NOTE | 2025-02-07 13:23 | MHC.OFFVIS ---
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 The pain is primarily on the right side but also affects the left side. She underwent an ultrasound which indicated venous insufficiency in the left leg, and she is awaiting further evaluation by a vascular specialist. The patient reports bilateral knee pain, with previous interventions including gel and cortisone injections, which provided temporary relief. The pain in the knees is exacerbated by activities such as climbing stairs and prolonged standing. The patient experiences posterior hip pain, more pronounced on the left side, which radiates to the thigh and is aggravated by certain movements and positions, such as lying on her side or sitting for extended periods. She has been diagnosed with sacroiliac joint dysfunction, suspected to be contributing to her symptoms. - Onset: Pain primarily on the right side, also affecting the left. - Quality: Radiating pain from the back to the legs, with spasms in the calf occasionally. - Location: Pain in the back, hips, and knees, radiating to the thighs and calves. - Exacerbating factors: Climbing stairs, prolonged standing, lying on the side, and sitting for extended periods. - Relieving factors: Previous interventions included gel and cortisone injections, providing temporary relief. - Affect: Pain impacts daily activities and mood, causing discomfort during routine tasks. - Analgesia: Previous use of gel and cortisone injections, with temporary relief; current use of anti-inflammatory medication. - Adverse Effects: Concerns about long-term steroid use affecting bones. - Activities of Daily Living: Pain interferes with climbing stairs, standing, and lying down. - Aberrant Drug Related Behaviors: No evidence of medication misuse or abuse reported. [facility] Medical History COVID Somnolence, daytime TAAN (obstructive sleep apnea) Allergic rhinitis Bronchial asthma Trigger finger Dysuria Obesity, morbid, BMI 40.0-49.9 Encounter for Papanicolaou smear for cervical cancer screening Asthma Insomnia Crohn's disease Surgical History History of removal of laparoscopic gastric banding device Hx of hand surgery History of carpal tunnel surgery Hx of laparoscopic gastric banding Hx of breast reduction, elective Family History Father HIV (human immunodeficiency virus infection) Mother Hypertension Maternal Grandmother Diabetes mellitus Maternal Grandfather Hypertension Lymphoma Paternal Grandfather No problems noted. 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 - Vascular: Reports venous insufficiency in the left leg. - Neurological: Reports occasional spasms in the calf. Physical Exam Exam Exam: General: awake, alert, oriented. Answers questions appropriately. Fully engaged in examination. Skin: warm, dry, intact HEENT: Normocephalic. Hearing intact. Cardiac: External chest normal in appearance. Respiratory: No cough, audible wheezing or stridor. Abdomen: without gross distension. MS: No obvious swelling or deformities. Able to transition from sit to stand unassisted. Ambulates with bilaterally normal heel strike and toe off Bilateral SIJ: Tenderness over bilateral PSIS. Gaenslen positive bilaterally. That there was positive bilaterally. SI compression positive bilaterally. Bilateral knees: Positive crepitus. Tenderness to palpation bilaterally. Full range of motion. Neurological: Oriented to person, place, time and situation. Thought process intact. No gait abnormalities appreciated. Psychiatric: Appropriate mood and affect. Good judgment and insight. Vital Signs: Last Vital Signs Pulse 91 02/07/25 13:27 BP 109/58 L 02/07/25 13:27 Pulse Ox 98 02/07/25 13:27 Oxygen Delivery Method Room Air 02/07/25 13:27 BMI result Body Mass Index 37.1 Results Reviewed Results Reviewed: 01/04/23 PROCEDURE: MR SPINE LUMBAR without CONTRAST FINDINGS: Routine spinal anatomy is presumed. There are no comparison examinations. The last well-formed intervertebral disc is annotated as L5-S1. A saved screen has been sent to PACS for reference. Normal lumbar alignment is demonstrated. Vertebral heights are well maintained. Bone marrow signal is within normal limits, and no suspicious osseous lesion is identified. Conus medullaris is unremarkable. Paraspinal soft tissues and visualized portions of the abdomen and pelvis are unremarkable. At T12-L1 no significant disc bulging. No central canal or neural foraminal narrowing. At L1-2 there is no significant disc bulging. No central canal or neural foraminal narrowing. At L2-3 there is no significant disc bulging. Mild facet arthropathy. No central canal or neural foraminal narrowing. At L3-4 there is no significant disc bulging. Mild bilateral facet arthropathy. No central canal or neural foraminal narrowing. At L4-5 there is mild annular bulging within the left foraminal region. Bilateral facet arthropathy with mild ligamentum flavum thickening. Mild neural foraminal narrowing greater on the left. No central canal narrowing. At L5-S1 there is disc desiccation. Mild annular bulging. Mild facet arthropathy. Mild neural foraminal narrowing. No central canal narrowing. IMPRESSION: No evidence of acute fracture or traumatic subluxation of the lumbar spine. Mild spondylitic change of the lumbar spine as described. Assessment & Plan Assessment & Plan (1) Sacroiliac joint dysfunction of both sides: Code(s): M53.3 - Sacrococcygeal disorders, not elsewhere classified Category: Medical (2) Osteoarthritis of left knee: Code(s): M17.12 - Unilateral primary osteoarthritis, left knee Category: Medical (3) Patellofemoral arthritis of right knee: Code(s): M17.11 - Unilateral primary osteoarthritis, right knee Category: Medical Plan The plan involves addressing the sacroiliac joint dysfunction with diagnostic injections to confirm the source of pain. If the sacroiliac joint is confirmed as the pain source, steroid injections may be considered for longer relief. For the knee pain, a genicular nerve block is planned to assess pain relief, followed by potential radiofrequency ablation if successful. The patient is advised to continue with current anti-inflammatory medications and to monitor pain levels. A referral to a vascular specialist is pending to address the venous insufficiency, which may involve procedures such as vein ablation. Patient has exhausted conservative therapy including PT, home exercise program, [id number] medications, nonsteroidal anti-inflammatory medications. For her bilateral lateral knee pain she has also tried steroid injections and gel injections without relief. Plan for bilateral diagnostic sacroiliac joint injections with local anesthetic and fluoroscopy guidance. Patient will require Ativan at her request for this procedure. Plan for right diagnostic genicular nerve block with local anesthetic and fluoroscopy guidance. Patient will require Ativan under request for this procedure. Patient was informed and verbally consented to the use of an ambient scribe for clinic note documentation during this visit. Patient Instructions: - Continue taking prescribed anti-inflammatory medications as directed. - Keep a pain diary to track symptoms and relief after injections. - Follow up with the vascular specialist for further evaluation and treatment of venous insufficiency. - Avoid activities that exacerbate pain, such as prolonged standing or climbing stairs. Coding Level of Care Code Est Pt Level 3 (95531) Complex EM visit Add On G2211 Diagnoses Sacroiliac joint dysfunction of both sides M53.3 Osteoarthritis of left knee M17.12 Patellofemoral arthritis of right knee M17.11
[2025-02-07 13:27] VITALS: BP 109/58; PULSE 91; O2SAT 98; BMI 37.1
--- OUTSIDE RECORDS SUMMARY | 2025-02-07 16:46 | XMS_ITS | Patient Health Record ---
Author Organization [facility] Address [address] [place] [address] Care Team Providers Care Securities Lending Trader Name Role Phone Ceci Blackburn M.D. Primary Care Provider Emerson Schwartz [phone] Allergies Allergen (clinical drug ingredient) Drug/Non Drug Allergy documented on EMR Reaction Allergy Type Onset Date Status vancomycin Vancomycin HCl Unknown Drug Allergy A ctive ciprofloxacin cipro (uncoded) Unknown Allergy Active Results Component Value Reference Range Notes Complete Blood Count Auto Di ff Reviewed date:04/09/2024 10:38:42 PM Interpretation: Performing Lab:[facility], [address] [place] [phone] Notes/Report: White Blood Count 5.2 4.8-10.8 X10*3/uL [...] Panel Reviewed date:04/04/2024 01:40:57 PM Interpretation: Performing Lab:[address] [phone] Notes/Report: Bilirubin Total 0.2 0.0-1.0 mg/dL Bilirubin Direct < 0.2 0.0-0.5 mg/dL Aspartate Amino Transferase 22 5-31 U/L Alanine Aminotransferase 34 0-31 U/L Total Protein 7.2 6.5-8.0 g/dL Albumin Level 3.7 3.5-5.0 g/dL Alkaline Phosphatase 71 39-117 U/L Dakota AVINA Reviewed date:06/05/2024 05:15:56 PM Interpretation: Performing Lab:[address] [phone] Notes/Report: Dakota AVINA SEE NOTE SEE SCA NNED RESULTS IN EMR Reason For Referral No Information Medications Medication SIG (Take, Route, Frequency, Duration) Notes Start Date End Date Status Vitamin D 2000 UNIT 1 tablet Orally Once a day; Duration: 30 day(s) Not-Taking Pantoprazole Sodium 40 MG Oral; Duration: 90 Days Active Fexofenadine HCl 180 MG 1 tablet as needed Orally Once a day; Duration: 30 day(s) Active Dicyclomine HCl 20 MG Oral; Duration: 30 Days Active Ambien 10 MG 1 tablet at bedtime as needed Orally Once a day Active Stelara 90 MG/ML INJECT CONTENTS OF 1 SYRINGE UNDER THE SKIN EVERY 4 WEEKS Subcutaneous; Duration: 28 Days Active Baclofen 20 MG/20ML Intrathecal Three times a day Not-Taking Nabumetone 500 MG Oral; Duration: 30 Days Active Gabapentin 600 MG Oral; Duration: 30 Days Active Emgality 120 MG/ML Subcutaneous; Duration: 28 Days For headache Active Metamucil 0.36 GM Take 2 with at least 8 ounces of juice or water Orally Twice a day for constipation; Duration: 30 days 01/09/2025 Active Tylenol 325 MG 1 tablet as needed Orally prn Active Senna PRN Active Propranolol HCl 20 MG Oral; Duration: 90 Days Active hydrOXYzine Pamoate 25 MG as directed Orally every 6 hrs Not-Taking Arnuity Ellipta 100 MCG/ACT INHALE 1 PUFF BY MOUTH DAILY. RINSE MOUTH WITH WATER AFTER USE FOR AFTERTASTE AND INCIDENCE OF CANDIDIASIS. DO NOT SWALLOW Inhalation; Duration: 30 Days Active Zepbound 2.5 MG/0.5ML 0.5 mL Subcutaneous; Duration: 30 day(s) Not-Taking Albuterol Sulfate HFA 108 (90 Base) MCG/ACT INHALE 2 PUFFS BY MOUTH EVERY 4 TO 6 HOURS NEEDED FOR SHORTNESS OF BREATH OR WHEEZING Inhalation; Duration: 16 Days Active MiraLax 17 GM/SCOOP Take 1 measured dose in the cap of the bottle in at least 8 ounces of water or juice Orally Twice a day for constipation; Duration: 30 days 01/09/2025 Active Albuterol Sulfate HFA 108 (90 Base) MCG/ACT Inhalation; Duration: 16 Days Active Ondansetron HCl 8 MG TAKE ONE TABLET BY MOUTH EVERY 8 HOURS NEEDED Oral; Duration: Not Available Active Fluconazole 150 MG 1 tablet Orally Take 1 on Day #1, 1 on Day #2, and 1 on Day #7; Duration: 7 days PRN Active Stelara 90 MG/ML 1 injection every 4 weeks Subcutaneous Every 4 weeks; Duration: 28 days Active Docusate Sodium 100 MG 1 Orally Twice a day for constipation; Duration: 30 days 01/09/2025 Active Pantoprazole Sodium 40 MG TAKE 1 TABLET BY MOUTH DAILY; Duration: 30 Active Gabapentin 400 MG Oral; Duration: 30 Days Active Fexofenadine HCl 180 MG TAKE 1 TABLET BY MOUTH EVERY DAY NEEDED Oral; Duration: 90 Days Active Dicyclomine HCl 20 MG TAKE 1 TABLET BY MOUTH THREE TIMES DAILY WITH MEALS; Duration: 30 PRN Active clonazePAM 0.5 MG Oral; Duration: 30 Days Active Propranolol HCl 20 MG TAKE 1 TABLET BY MOUTH EVERY DAY Oral; Duration: 90 Active Imodium A-D 2 MG 1 or 2 tablets Orally Every 4 to 6 hours as needed for diarrhea; Duration: 30 days PRN 08/14/2022 Active Sertraline HCl 50 MG 1 half tablet Orall y Once a day Active Montelukast Sodium 10 MG TAKE 1 TABLET BY MOUTH EVERY NIGHT AT BEDTIME NEEDED FOR RHINITIS Oral; Duration: 90 Days Active Dicyclomine HCl 10.0 Milligram Take 1 or 2 capsules QID prn abdominal cramps and/or diarrhea Active Sertraline HCl 100 MG TAKE 1 TABLET BY MOUTH DAILY Oral; Duration: 30 Days Active Diphenoxylate-Atropi ne 0 TAKE 1 TO 2 TABLETS BY MOUTH FOUR TIMES DAILY NEEDED FOR DIARRHEA only prn-rare Active Gabapentin 400 MG Oral; Duration: 30 Days Active Rxgqhimwni-GVYR-Dxpu eine 50-325-40 MG TAKE 1 TO 2 TABLETS BY MOUTH EVERY 4 HOURS NEEDED. NOT TO EXCEED 6 TABLETS PER 24 HOURS Oral; Duration: 5 Not-Taking Zolpidem Tartrate 10 MG TAKE 1 TABLET BY MOUTH AT BEDTIME NEEDED Oral; Duration: 30 Days Active Immunizations Vaccine Route Administration [...] She does not smoke nor use a il significant amounts of alcohol. She does not smoke nor use a il significant amounts of alcohol. She does not smoke nor use a il significant amounts of alcohol. She does not smoke nor use a il significant amounts of alcohol. She does not smoke nor use a il significant amounts of alcohol. She does not smoke nor use a il significant amounts of alcohol. She does not smoke nor use a il significant amounts of alcohol. She does not smoke nor use a il significant amounts of alcohol. She does not [...] Status Risk Notes Problem Colon cancer screening (168256337) Colon cancer screening (Z12.11) Active confirmed Problem Irritable bowel syndrome (46662300) Irritable bowel syndrome (K58.9) Active confirmed Problem Constipation (30593878) Constipation (K59.00) Active confirmed Problem Crohn's disease of small AND large intestines (31852584) Crohn's disease of both small and large intestine without complication (K50.80) Active confirmed Problem Nausea (161586877) Nausea (R11.0) Active confir med Problem Therapeutic drug monitoring, quantitative (regime/therapy) (19068414) Encounter for therapeutic drug level monitoring (Z51.81) Active confirmed Problem Dysphagia (02623235) Dysphagia (R13.10) Active confirmed Problem Crohn's disease of small AND large intestines (19456839) Crohns disease of both small and large intestine without complication (K50.80) Active confirmed Problem Gastroesophageal reflux disease (171584633) Gastroesophageal reflux disease, esophagitis presence not specified (K21.9) Active confirmed Problem Chronic gastritis (1941861) Chronic gastritis (K29.50) Active confirmed Problem Diarrhea (28631011) Diarrhea, unspecified type (R19.7) Active confirmed Problem Crohn's disease of small AND large intestines (27914535) Crohn''s disease of both small and large intestine without complication (K50.80) Active confirmed Problem Erythematous ski n nodule (R22.9) Active confirmed Problem Vaginal candidiasis (36898690) Vaginal candidiasis (B37.3) Active confirmed Problem Drug monitoring done (353570482) Encounter for therapeutic drug monitoring (Z51.81) Active confirmed Problem Gastroesophageal reflux disease (disorder) (259652074) Chronic GERD (K21.9) Active confirmed Vital Signs Temperature 97.2 degrees Fahrenheit 01/09/2025 Blood pressure diastolic 01 mm Hg 01/09/2025 Height 65.5 in 01/09/2025 Blood pressure systolic 001 mm Hg 01/09/2025 Weight 254.2 lbs 01/09/2025 BMI 41.65 kg/m2 01/09/2025 Encounters Encounter Location Date Provider Diagnosis [facility] [address] [place] [phone] 06/05/2024 Emerson Canales Crohn's disease of both small and large intestine without complication K50.80 ; Irritable bowel syndrome K58.9 ; Chronic GERD K21.9 and Vaginal candidiasis B37.3 [facility] [address] [place] [phone] 01/09/2025 Emerson Canales Crohns disease of jaquelin th small and large intestine without complication K50.80 and Constipation K59.00 [facility] [address] [place] [phone] 05/01/2024 Emerson Canales [facility] [address] [place] [phone] 06/05/2024 Emerson Canales [facility] [address] [place] [phone] 06/14/2024 Emerson Canales [facility] [address] [place] [phone] 06/22/2024 Emerson Canales [facility] [address] [place] [address] 10/24/2024 Emerson Canales Assessments Encounter Date Diagnosis [...] regimen including MiraLAX, fiber supplement, and another clif-ggo-yfzvdch stool softener such as Colace. I advised [...] regimen including MiraLAX, fiber supplement, and another iqqj-pbz-mseitdu stool softener such as Colace. I advised [...] keep you advised of her progress. 06/05/2024 Chronic GERD (ICD-10 - K21.9) Overall, [...] remain stable I will plan to see tSephie in the Fall for a followup visit. [...] PROFILE 07/10/2020 LIVER PROFILE 01/24/2018 LIVER PROFILE 07/08/2013 LIVER PROFILE 12/11/2017 LIVER PROFILE 11/03/2015 LIVER PROFILE 07/10/2020 LIVER PROFILE 07/15/2016 LIVER PROFILE 05/23/2019 LIVER PROFILE 07/11/2017 LIVER PROFILE 07/12/2016 LIVER PROFILE 04/01/2015 LIVER PROFILE 10/17/2018 LIVER PROFILE 01/08/2021 LIVER PROFILE 08/13/2021 LIVER PROFILE 02/03/2024 IRON + IBC (FE) 08/13/2021 CRP 01/08/2021 CRP 01/24/2018 CRP 08/13/2021 VITAMIN B12 AND FOLATE 08/13/2021 CBC w DIFF 04/01/2015 CBC w DIFF 10/17/2018 CBC w DIFF 02/03/2024 CBC w DIFF 05/09/2014 CBC w DIFF 01/08/2021 CBC w DIFF 07/08/2013 CBC w DIFF 12/11/2017 CBC w DIFF 11/03/2015 CBC w DIFF 01/24/2018 CBC w DIFF 07/10/2020 CBC w DIFF 07/15/2016 CBC w DIFF 07/11/2017 CBC w DIFF 08/13/2021 CBC w DIFF 07/12/2016 CBC w/o DIFF 05/23/2019 SED RATE (ESR) [...] Anser UST 02/03/2024 Prometheus Anser UST 01/08/2021 Prometheus Anser UST 01/09/2025 GI PANEL 08/19/2022 Future Test Test Name Order Date COLONOSCOPY 05/08/2013 UPPER GI ENDOSCOPY 06/08/2018 COLONOSCOPY 06/08/2018 UPPER GI ENDOSCOPY BALLOOON DILATION OF ESOPH 06/30/2023 COLONOSCOPY 06/30/2023 Next Appt Details Provider Name:Emerson Canales , 07/30/2025 09:10:00 AM, [address], [address], [place], [address], Insurance Providers Payer Name Payer Address Payer Phone Subscriber Number Group Number Insured Name Patient Relationship to Insured Coverage Start Date Coverage End Date MEDICARE [place] [address] [place] [address] [id number] STEPHIE DORSEY Self - patient is the insured MEDICAID OF [id number] [address] [place] [id number] STEPHIE DORSEY Self - patient is the insured Medical (General) History Medical History History ICD Code Colonoscopy 07-07-2012 Crohn's colitis-diagnosed in 2000- colonoscopy in 02/2009 at [facility] with diffuse colitis/ileitis-has been treated with Remicade, Humira, and azathioprine in the past at [facility]- Stephie reports that the mesalamines and azathioprine seem to exacerbate her GI symptoms with gas and cramps- however, at those time she is usually having active Crohn's disease symptoms as well- -she was hospitalized at [facility] in 06/2013 for [...] 01/2019 for the Crohn's and psoriasis Denies NM,DM,CVA,Lung disease,renal dise ase Anemia- sees Dr. Pulido/Dr. [...]
--- OUTSIDE RECORDS SUMMARY | 2025-02-07 16:46 | XMS_ITS | Clinical Summary ---
Author Organization [facility] Address [address] [place] [address] Phone Care Team Providers Care Escapement Matcher Name Role Phone Katrina Sherwood MD Primary Care Provider [phone] Allergies Active Allergy Reactions Criticality Noted Date [...] 1:15 PM EDT Office Visit [facility] [address] [phone] Juan Moody DPM Posterior tibial tendinitis of [...] 1:00 PM EDT Office Visit Orthopedic [facility] [address] [phone] Juan Moody DPM [address] [address] Health Maintenance Due Date Last Done Comments [...] Insurance MEDICAID - [place] MEDICARE Care Teams Escapement Matcher Relationship Specialty Start Date End Date [place], MD Katrina [address] [place] [phone] PCP - General Internal Medicine 01/02/14
== END 2025-02-07 14:35 | disposition home or self-care (01) ==
LOC: HO.PMC 13:21
PROVIDERS: PCP Internal Medicine; Visit Provider Registered Nurse Emergency
DX: M53.3 Sacrococcygeal disorders, not elsewhere classified (principal); M17.0 Bilateral primary osteoarthritis of knee
CPT/HCPCS: 99213; G2211

== ENCOUNTER → 2025-02-07 13:21 | Outpatient (BNVA) | payer MEDICARE, MEDICAID, SELFPAY | PROVIDERS: PCP Internal Medicine; Visit Provider Registered Nurse Emergency | DX: M53.3 Sacrococcygeal disorders, not elsewhere classified (principal); M17.0 Bilateral primary osteoarthritis of knee | CPT/HCPCS: 99212 ==

== ENCOUNTER 2025-02-26 06:16 | Outpatient (REF) | payer MEDICARE, MEDICAID, SELFPAY ==
--- NOTE | ~2025-02-26 | FL_ITS ---
EXAMINATION: FL GUIDANCE ONLY HISTORY: M53.3 - Sacrococcygeal disorders, not elsewhere classified COMPARISON: None available. TECHNIQUE: Fluoroscopy time: 24 seconds. Cumulative Dose: 9.00 mGy. DAP: 1070.00 mGycm2 Images: 4. FINDINGS: Fluoroscopic spot films of the pelvis demonstrate needles and contrast material in the regions of the bilateral sacroiliac joints. FL/FL guidance in treatment room IMPRESSION: Fluoroscopy during procedure. Please see procedure report for additional information. Electronically signed by: Emerson Price MD 02/26/2025 03:34 PM LUISA
--- OUTSIDE RECORDS SUMMARY | 2025-02-26 06:21 | XMS_ITS | Encounter Summary ---
Author Organization [employer] Address [address] [place] [address] Care Team Providers Care Brewer Helper Name Role Phone Ceci Billings MD Primary Care Provide r Reason for Visit * Reason Onset Date Comments Med Refill 10/02/2024 Encounter Details Date Type Department Care Team (Late st Contact Info) Description 10/02/2024 Refill [facility]ICINE [address] [place] [address] Ceci Billings MD [address] [place] [address] Morbid obesity (CMS/HCC) Social History Tobacco Use [...] Office Visit [facility] [address] [place] [phone] Ceci Billings MD [address] [place] [address] documented as of this encounter Visit Diagnoses Diagnosis Morbid obesity (CMS/HCC) (HCC) Morbid obesity documented in this encounter Additional Health Concerns Assessment Noted Time PHQ-9 Depression Total Score: 0 09/08/19 9:03 AM EDT documented as of this encounter Care Teams Brewer Helper Relationship Specialty Start Date End Date Ceci Billings MD [address] [place] [phone] PCP - General Family Medicine 06/02/20 documented as of this encounter
--- OUTSIDE RECORDS SUMMARY | 2025-02-26 06:21 | XMS_ITS | Encounter Summary ---
Author Organization [employer] Address [address] [place] [address] Care Team Providers Care General Surgeon Name Role Phone Ceci Billings MD Primary Care Provide r Encounter Details Date Type Department Care Team (Late st Contact Info) Description 07/03/2024 Orders Only [facility]EDS [address] [place] [address] Provider, MD Chito Social History Tobacco Use [...] Description 03/19/2025 9:00 AM EST Office Visit [facility] MEDICINE [address] [place] [address] Ceci Billings MD [address] [place] [address] documented as of this encounter Procedures Procedure [...] PM EDT Narrative 07/20/2024 4:18 PM EDT [facility] [address] [place] [address] Mammography Report Signed Patient: Windy Mcfarlane MR# : [id number] : 1975 Acct:[id number] Age/Sex: 48 / F ADM Date: 07/12/24 Loc: HO.MAMMO Attending Dr: Ceci Peacock MD Ordering Physician: Ceci Billings MD Results: 2Benign Findings Date of Service: 07/12/24 Follow Up: 1 Year From Orig inal Mammogram Procedure(s): MM tomosynthesis screening BI Accession Number(s): [id number] cc: Ceci Billings MD EXAMINATION: MM SCREENING [...] 07/20/24 1614 DD/ 1345 TD/TT: 07/12/24 1401 Densitometer Reader: Procedure Note Donotuseinterpreter, Image - 07/20/2024 Yenn[place] [facility] [address] [place] [address] Mammography Report Signed Patient: Windy McfarlaneMR# : [id number] : 1975Acct:[id number] Age/Sex: 48 / FADM Date: 07/12/24 Loc: HO.MAMMO Attending Dr: Ceci Peacock MD Ordering Physician: Ceci Billings MDResults: 2Benign Findings Date of Service: 07/12/24Follow Up: 1 Year From Orig inal Mammogram Procedure(s): MM tomosynthesis screening BI Accession Number(s): [id number] cc: Ceci Billings MD EXAMINATION: MM SCREENING [...] 07/20/24 1614 DD/ 1345 TD/TT: 07/12/24 1401 Densitometer Reader: us Ceci Peacock MD IMG BI PROCEDURES Fin al Result * Bacterial Vaginosis (07/03/2024 12:00 AM EDT) TRICHOMONAS VAGINALIS DETECTION BY PCR NOT DETECTED Not Detect [facility] BACTERIAL VAGINOSIS DETECTION BY PCR NEGATIVE Negative [facility] Comment:The BV organism targ ets [...] DETECTION BY PCR NOT DETECTED Not Detect [facility] Jeni glab krusei PCR NOT DETECTED Not Detect [facility] 07/03/2024 07/03/2024 us Generic External Data Provider LAB MICROBIOLOGY - GENERAL ORDERABLES Final Result [facility] [address] [place] [phone] [phone] * Chlamydia/N. Gonorrhoeae RNA, TMA, Urogenitial (07/03/2024 12:00 AM EDT) CT PCR NOT DETECTED Not Detect. [facility] Comment:A not detected test result [...] psychologicalconsequences. NG PCR NOT DETECTED Not Detect. [facility] Comment:A not detected test result [...] medical, social or psychologicalconsequences. 07/03/2024 07/03/2024 Narrative [facility] - 07/04/2024 5:16 AM EDT Vaginal us Generic External Data Provider LAB MICROBIOLOGY - GENERAL ORDERABLES Final Result [facility] [address] [place] [address] [phone] * Colonoscopy (08/23/2023 11:53 AM EDT) us Historical Provider HEALTH MAINTENANCE Final Result documented in this encounter Visit Diagnoses Not on filedocumented in this encounter Additional Health Concerns Assessment Noted Time PHQ-9 Depression Total Score: 0 10/05/19 24 9:33 AM EDT documented as of this encounter Care Teams General Surgeon Relationship Specialty Start Date End Date Ceci Billings MD [address] [place] [phone] PCP - General Family Medicine 06/02/20 documented as of this encounter
--- OUTSIDE RECORDS SUMMARY | 2025-02-26 06:21 | XMS_ITS | Encounter Summary ---
Author Organization [employer] Address [address] [facility] [address] [place] [address] Care Team Providers Care Glove Factory Sewer Name Role Phone Ceci Billings MD Primary Care Provide r Encounter Details Date Type Department Care Team (Late st Contact Info) Description 08/15/2024 Orders Only [facility]EDS [address] [place] [address] Provider, MD Chito Social History Tobacco Use [...] Visit [facility] MEDICINE [address] [place] [phone] Ceci Billings MD [address] [place] [address] documented as of this encounter Procedures Procedure [...] documented as of this encounter Care Teams Glove Factory Sewer Relationship Specialty Start Date End Date Ceci Billings MD [address] [place] [address] PCP - General Family Medicine 06/02/20 documented as of this encounter
--- OUTSIDE RECORDS SUMMARY | 2025-02-26 06:21 | XMS_ITS | Encounter Summary ---
Author Organization [employer] Address [address] [facility] [address] [address] [place] [address] Care Team Providers Care Pillow Cleaner Name Role Phone Ceci Billings MD Primary Care Provide r Encounter Details Date Type Department Care Team ([facility] Contact Info) Description 04/23/2024 Orders Only [facility] MEDICINE [address] [place] [address] Ceci Billings MD [address] [place] [address] Social History Tobacco Use Types Packs/Day Years [...] 03/19/2025 9:00 AM EST Office Visit [facility] MEDICINE [address] [place] [address] Ceci Billings MD [address] [place] [address] documented as of this encounter Visit Diagnoses Not on filedocumented in this encounter Additional Health Concerns Assessment Noted Time PHQ-9 Depression Total Score: 0 10/05/19 24 9:33 AM EDT documented as of this encounter Care Teams Pillow Cleaner Relationship Specialty Start Date End Date Ceci Billings MD [address] [place] [phone] PCP - General Family Medicine 06/02/20 documented as of this encounter
--- OUTSIDE RECORDS SUMMARY | 2025-02-26 06:21 | XMS_ITS | Encounter Summary ---
Author Organization [employer] Address [address] [place] [address] Care Team Providers Care Pierogi Maker Name Role Phone Ceci Billings MD Primary Care Provide r Reason for Visit * Reason Comments Med Refill Encounter Details Date Type Department Care Team (Late st Contact Info) Description 06/22/2024 Refill [facility]INE [address] [place] [address] Ceci Billings MD [address] [place] [address] Migraine without aura, not refractory Social History [...] Description 03/19/2025 9:00 AM EST Office Visit [facility]INE [address] [place] [phone] Ceci Billings MD [address] [place] [address] documented as of this encounter Visit Diagnoses Diagnosis Migraine without aura, not refractory documented in this encounter Additional Health Concerns Assessment Noted Time PHQ-9 Depression Total Score: 0 10/05/19 24 9:33 AM EDT documented as of this encounter Care Teams Pierogi Maker Relationship Specialty Start Date End Date Ceci Billings MD [address] [place] [phone] PCP - General Family Medicine 06/02/20 documented as of this encounter
--- OUTSIDE RECORDS SUMMARY | 2025-02-26 06:21 | XMS_ITS | Encounter Summary ---
Author Organization [employer] Address [address] [facility] [address] [place] [address] Care Team Providers Care Bass Guitar Teacher Name Role Phone Ceci Billings MD Primary Care Provide r Reason for Visit * Reason Comments Med Refill Encounter Details Date Type Department Care Team (Late st Contact Info) Description 01/03/2024 Refill [facility] MEDICINE [address] [place] [address] Ceci Billings MD [address] [place] [address] Social History Tobacco Use Types Packs/Day Years [...] 9:00 AM EST Office Visit [facility] MEDICINE [address] [place] [address] Ceci Billings MD [address] [place] [address] documented as of this encounter Visit Diagnoses Not on filedocumented in this encounter Additional Health Concerns Assessment Noted Time PHQ-9 Depression Total Score: 0 10/05/19 24 9:33 AM EDT documented as of this encounter Care Teams Bass Guitar Teacher Relationship Specialty Start Date End Date Ceci Billings MD [address] [place] [address] PCP - General Family Medicine 06/02/20 documented as of this encounter
--- OUTSIDE RECORDS SUMMARY | 2025-02-26 06:21 | XMS_ITS | Encounter Summary ---
Author Organization [employer] Address [address] [place] [address] Care Team Providers Care Stove Fitter Name Role Phone Ceci Billings MD Primary Care Provide r Encounter Details Date Type Department Care Team (Late st Contact Info) Description 12/25/2024 Orders Only [facility] MEDICINE [address] [place] [address] Ceci Billings MD [address] [place] [address] Social History Tobacco Use Types Packs/Day Years [...] Description 03/19/2025 9:00 AM EST Office Visit [facility] MEDICINE [address] [place] [address] Ceci Billings MD [address] [place] [address] documented as of this encounter Visit Diagnoses Not on filedocumented in this encounter Additional Health Concerns Assessment Noted Time PHQ-9 Depression Total Score: 4 12/21/19 25 11:24 AM EDT documented as of this encounter Care Teams Stove Fitter Relationship Specialty Start Date End Date Ceci Billings MD [address] [place] [address] PCP - General Family Medicine 06/02/20 documented as of this encounter
--- OUTSIDE RECORDS SUMMARY | 2025-02-26 06:21 | XMS_ITS | Clinical Summary ---
Author Organization 175 [facility] Address 175 [place] [address] Phone Care Team Providers Care Agent Licensing Clerk Name Role Phone Katrina Sherwood MD Primary Care Provider [phone] Allergies Active Allergy Reactions Criticality Noted Date [...] the articular space once for 1 dose. 4 Active ustekinumab (Stelara) 90 mg/mL syringe Inject 90 mg into the skin daily. Active zolpidem (AMBIEN) 10 mg tablet Take 1 tablet (10 mg total) by mouth at bedtime as needed. Active tolnaftate (Tinactin) 1 % spray Apply topically 2 (two) times a day. 130 g 03/15/20 25 Active Hospital, Clinic, or Other Facility Administered Medication Ordered Dose Route Frequency Start Date End Date Status lidocaine (PF) (XYLOCAINE-MPF) 1 % injection 0.5 mLIndications:Planta r fasciitis .5 mL Once PRN Procedure 02/11/2025 02/11/2025 Ended triamcinolone acetonide (KENALOG-40) 40 mg/mL injection 40 mgIndications:Planta r fasciitis 40 mg Once PRN Procedure 02/11/2025 02/11/2025 Ended Encounters Date Type Department Care Team Description 02/13/2025 Telephone Orthopedic Surgery [facility] [address] [phone] Juan Moody DPM 02/11/2025 1:00 PM EDT Office Visit Orthopedic Surgery [facility] [address] [phone] Juan Moody DPM Posterior tibial tendinitis of right leg (Primary Dx); Lumbosacral radiculopathy; Plantar fasciitis; Max's neuroma of right foot 12/11/2024 1:15 PM EDT Office Visit Orthopedic Surgery [facility] [address] [phone] Juan Moody DPM Posterior tibial tendinitis of [...] Care Team (Late st Contact Info) Description 04/15/2025 1:15 PM EST Office Visit Orthopedic Surgery - [place] [address] [place] [phone] Juan Moody, ERIC [address] [place] [phone] Health Maintenance Due Date Last Done Comments [...] Diagnosis Comments INJECTION TENDON OR LIGAMENT Routine 02/11/2025 1:00 PM EDT Plantar fasciitis INJECTION TENDON OR LIGAMENT Routine 12/11/2024 1:15 PM EDT Plantar fasciitis LIPID PANEL Routine 08/06/2022 HM HPV Routine 11/09/2021 from Last 3 Months or Most Recently Relevant to Health Maintenance Results * Injection tendon or ligament (02/11/2025 1:00 PM EDT) Narrative Juan Moody DPM - 02/11/2025 1:00 PM EDT Juan Moody DPM 02/11/2025 7:28 PM Injection tendon or ligament Indications: pain Details: 25 G needle Medications: 0.5 mL lidocaine (PF) 1 %; 40 mg triamcinolone acetonide 40 mg/mL Informed Consent: Laterality: Bilateral us Juan Moody DPM IN CLINIC/BEDSIDE ORDERABLE S Final Result * Injection tendon or ligament (12/11/2024 1:15 [...] Cervical Cancer Screening: HPV (11/09/2021) Pathologist [facility] Cervical Cancer Screening: HPV abstracted Historical Provider HEALTH MAINTENANCE Final Result from Last 3 Months or Most Recently Relevant to Health Maintenance Insurance MEDICAID - [place] MEDICARE Care Teams Agent Licensing Clerk Relationship Specialty Start Date End Date Kaela, MD Katrina [address] [place] [address] [place] [phone] PCP - General Internal Medicine 01/02/14
--- OUTSIDE RECORDS SUMMARY | 2025-02-26 06:21 | XMS_ITS | Clinical Summary ---
Author Organization [employer] Address [address] [place] [address] 7t [place] [address] Care Team Providers Care Duck Farmer Name Role Phone Ceci Billings MD Primary [...] to 20 mmHg, continue to follow-up with supervisor rubber covering Mild persistent asthma 03/01/2016 Osteopenia 03/01/2016 Allergic [...] Encounters Date Type Department Care Team Description 01/25/2025 Orders Only [facility] External Provider, [facility] 01/04/2025 Telephone [facility] [address] [place] [address] Ceci Billings MD telephone call 12/28/2024 Telephone [facility] [address] [place] [phone] Ceci Billings MD Prior Authorization 12/25/[address] [address] Ceci Billings MD 12/25/2024 Orders Only [facility] [address] [place] [address] Ceci Billings MD 12/20/2024 11:15 AM EDT Office Visit [address] [address] Ceci Billings MD Obstructive sleep apnea syndrome (Primary Dx); Lumbar radiculopathy, chronic; Moderate persistent asthma, unspecified whether complicated; Morbid obesity ([facility]); Chronic hip pain, bilateral; Venous insufficiency; BMI 40.0-44.9, adult ([facility]) 12/20/2024 Telephone [facility] [address] [place] [phone] Ceci Billings MD 12/20/[address] [address] Ceci Billings MD Durable Medical Equipment (DME RX Compression Stockings(L&C)) 12/20/2024 Travel 12/19/2024 Travel 12/19/[address] [address] Ceci Billings MD chart prep 12/13/2024 Refill [facility] [address] [place] [address] Ceci Billings MD Crohn's disease of both small and large intestine without complication ([facility]) 12/13/2024 Refill [facility] [address] [place] [address] Ceci Billings MD Neuropathy 12/04/[address] [address] Ceci Billings MD Appointment Request from Last 3 Months Immunizations Immunization Administration [...] Description 03/19/2025 9:00 AM EST Office Visit [facility] [address] [place], [place] [phone] Ceci Billings MD [address] [place] [address] Health Maintenance Due Date Last Done Comments [...] Procedure Name Priority Date/Time Associated Diagnosis Comments VASC US LOWER EXTREMITY VENOUS DUPLEX BILATERAL Routine 01/25/2025 9:01 AM EDT AMB REFERRAL TO ORTHOPAEDIC SURGERY Routine 12/11/2024 [...] Recently Relevant to Health Maintenance Results * VASC US Lower Extremity Venous Duplex Bilateral (01/25/2025 9:01 AM EDT) 01/25/2025 9:01 AM EDT Narrative [facility] - 01/25/2025 10:15 AM EDT [address] [address] Ultrasound Report Signed Patient: Windy Mcfarlane MR# : [id number] : 1975 Acct:[id number] Age/Sex: 49 / F ADM Date: 01/25/25 Loc: HO.US Attending Dr: Elvia Winslow RICE DRIER-C Ordering Physician: Elvia Winslow Date of Service: 01/25/25 Procedure(s): US venous duplex LE BI Accession Number(s): [id number] cc: Ceci Billings MD; Elvia Winslow Reason for Exam: I87.2 - Venous insufficiency (chronic) (peripheral) EXAMINATION: US LOWER EXTREMITY VENOUS (REFLUX EXAM), BILATERAL CLINICAL INFORMATION: I 87.2. Venous insufficiency chronic. Bilateral GSV RFA COMPARISON: None. TECHNIQUE: Color flow triplex imaging and compression Doppler was performed to evaluate both the deep and the superficial systems bilaterally. To evaluate the superficial system, the examination was performed in the upright position. Color-flow Doppler ultrasound and compression ultrasound were utilized. In addition, maneuvers were utilized to demonstrate reflux. FINDINGS: 1. DEEP VENOUS ULTRASOUND OF THE RIGHT LOWER EXTREMITY: Common Femoral Vein: Compressible, normal respiratory variation and augmented flow. Femoral Vein: Compressible, normal color flow and augmentation. Popliteal Vein: Compressible, normal augmentation. Deep Reflux: There is no evidence of reflux in the deep system in either the common femoral vein, superficial femoral or the popliteal vein. There is no evidence of a Mckeon's cyst. 2. SUPERFICIAL ULTRASOUND WITH DOPPLER OF RIGHT LOWER EXTREMITY: GREAT SAPHENOUS VEIN: Saphenofemoral Junction: 0.7 cm; Reflux: 0 ms Proximal Thigh: Status post RFA. Mid Thigh: Status post RFA. Distal Thigh: Status post RFA. At Knee: Status post RFA. Proximal Calf: Status post RFA. Mid Calf: 0.2 cm; Reflux: 1736 ms Distal Calf: 0.2 cm; Reflux: 0 ms DUPLICATED MEDIAL GREAT SAPHENOUS VEIN: Diameter: None imaged Reflux: NA DUPLICATED LATERAL GREAT SAPHENOUS VEIN: Diameter: 0.3 cm. Reflux: NA SMALL SAPHENOUS VEIN: Saphenopopliteal Junction: 0.9 cm; Reflux: 0 ms Proximal: 0.3 cm; Reflux: 0 ms Distal: 0.2 cm; Reflux: 0 ms VEIN OF GIACOMINI: Size: NA Reflux: NA PERFORATORS: Location: Mid thigh and proximal calf. Size: 0.2 cm. Reflux: NA VARICOSITIES: Location: None imaged. Size: NA Reflux: NA 3. DEEP VENOUS ULTRASOUND OF THE LEFT LOWER EXTREMITY: Common Femoral Vein: Compressible, normal respiratory variation and augmented flow. Femoral Vein: Compressible, normal color flow and augmentation. Popliteal Vein: Compressible, normal augmentation. Deep Reflux: There is no evidence of reflux in the deep system in either the common femoral vein, superficial femoral or the popliteal vein. There is no evidence of a Mckeon's cyst. 4. SUPERFICIAL ULTRASOUND WITH DOPPLER OF LEFT LOWER EXTREMITY: GREAT SAPHENOUS VEIN: Saphenofemoral Junction: 0.7 cm; Reflux: 0 ms Proximal Thigh: 0.2 cm; Reflux: 0 ms Mid Thigh: Status post RFA. Distal Thigh: Status post RFA. At Knee: Status post RFA. Proximal Calf: Status post RFA. Mid Calf: 0.2 cm; Reflux: 0 ms Distal Calf: 0.3 cm; Reflux: 0 ms DUPLICATED MEDIAL GREAT SAPHENOUS VEIN: Diameter: None imaged Reflux: NA DUPLICATED LATERAL GREAT SAPHENOUS VEIN: Diameter: 0.2 cm. Reflux: NA SMALL SAPHENOUS VEIN: Saphenopopliteal Junction: 0.3 cm; Reflux: 0 ms Proximal: 0.2 cm; Reflux: 0 ms Distal: 0.2 cm; Reflux: 0 ms VEIN OF GIACOMINI: Size: NA Reflux: NA PERFORATORS: Location: At the knee and proximal calf Size: 0.2 cm. Reflux: NA VARICOSITIES: Location: Small saphenous vein proximal segment. Size: 0.3 cm. Reflux: NA US/US venous duplex LE BI IMPRESSION: Right: Venous insufficiency, great saphenous vein at the mid calf. Left: No venous insufficiency. Perforators and varices without reflux. Electronically signed by: Bill Gavin MD 01/25/2025 10:12 AM EDT Dictated By: Bill Hi MD Signed By: <Electronically signed by Bill Pacheco MD in OV> 01/25/25 1012 DD/ 09 TD/TT: 01/25/25926 Stucco Worker: Procedure Note Donotuseinterpreter, Image - 01/25/2025 [place] [address] Ultrasound Report Signed Patient: Gabino ChowdhuryWindy# : [id number] : 1975Acct:[id number] Age/Sex: 49 / FADM Date: 01/25/25 Loc: HO.US Attending Dr: Elvia MIRAMONTES Ordering Physician: Elvia Winslow Date of Service: 01/25/25 Procedure(s): US venous duplex LE BI Accession Number(s): [id number] cc: Ceci Billings MD; Elvia Winslow Reason for Exam: I87.2 - Venous insufficiency (chronic) (peripheral) EXAMINATION: US LOWER EXTREMITY VENOUS (REFLUX EXAM), BILATERAL CLINICAL INFORMATION: I 87.2. Venous insufficiency chronic. Bilateral GSV RFA COMPARISON: None. TECHNIQUE: Color flow triplex imaging and compression Doppler was performed to evaluate both the deep and the superficial systems bilaterally. To evaluate the superficial system, the examination was performed in the upright position. Color-flow Doppler ultrasound and compression ultrasound were utilized. In addition, maneuvers were utilized to demonstrate reflux. FINDINGS: 1. DEEP VENOUS ULTRASOUND OF THE RIGHT LOWER EXTREMITY: Common Femoral Vein: Compressible, normal respiratory variation and augmented flow. Femoral Vein: Compressible, normal color flow and augmentation. Popliteal Vein: Compressible, normal augmentation. Deep Reflux: There is no evidence of reflux in the deep system in either the common femoral vein, superficial femoral or the popliteal vein. There is no evidence of a Mckeon's cyst. 2. SUPERFICIAL ULTRASOUND WITH DOPPLER OF RIGHT LOWER EXTREMITY: GREAT SAPHENOUS VEIN: Saphenofemoral Junction: 0.7 cm; Reflux: 0 ms Proximal Thigh: Status post RFA. Mid Thigh: Status post RFA. Distal Thigh: Status post RFA. At Knee: Status post RFA. Proximal Calf: Status post RFA. Mid Calf: 0.2 cm; Reflux: 1736 ms Distal Calf: 0.2 cm; Reflux: 0 ms DUPLICATED MEDIAL GREAT SAPHENOUS VEIN: Diameter: None imaged Reflux: NA DUPLICATED LATERAL GREAT SAPHENOUS VEIN: Diameter: 0.3 cm. Reflux: NA SMALL SAPHENOUS VEIN: Saphenopopliteal Junction: 0.9 cm; Reflux: 0 ms Proximal: 0.3 cm; Reflux: 0 ms Distal: 0.2 cm; Reflux: 0 ms VEIN OF GIACOMINI: Size: NA Reflux: NA PERFORATORS: Location: Mid thigh and proximal calf. Size: 0.2 cm. Reflux: NA VARICOSITIES: Location: None imaged. Size: NA Reflux: NA 3. DEEP VENOUS ULTRASOUND OF THE LEFT LOWER EXTREMITY: Common Femoral Vein: Compressible, normal respiratory variation and augmented flow. Femoral Vein: Compressible, normal color flow and augmentation. Popliteal Vein: Compressible, normal augmentation. Deep Reflux: There is no evidence of reflux in the deep system in either the common femoral vein, superficial femoral or the popliteal vein. There is no evidence of a Mckeon's cyst. 4. SUPERFICIAL ULTRASOUND WITH DOPPLER OF LEFT LOWER EXTREMITY: GREAT SAPHENOUS VEIN: Saphenofemoral Junction: 0.7 cm; Reflux: 0 ms Proximal Thigh: 0.2 cm; Reflux: 0 ms Mid Thigh: Status post RFA. Distal Thigh: Status post RFA. At Knee: Status post RFA. Proximal Calf: Status post RFA. Mid Calf: 0.2 cm; Reflux: 0 ms Distal Calf: 0.3 cm; Reflux: 0 ms DUPLICATED MEDIAL GREAT SAPHENOUS VEIN: Diameter: None imaged Reflux: NA DUPLICATED LATERAL GREAT SAPHENOUS VEIN: Diameter: 0.2 cm. Reflux: NA SMALL SAPHENOUS VEIN: Saphenopopliteal Junction: 0.3 cm; Reflux: 0 ms Proximal: 0.2 cm; Reflux: 0 ms Distal: 0.2 cm; Reflux: 0 ms VEIN OF GIACOMINI: Size: NA Reflux: NA PERFORATORS: Location: At the knee and proximal calf Size: 0.2 cm. Reflux: NA VARICOSITIES: Location: Small saphenous vein proximal segment. Size: 0.3 cm. Reflux: NA US/US venous duplex LE BI IMPRESSION: Right: Venous insufficiency, great saphenous vein at the mid calf. Left: No venous insufficiency. Perforators and varices without reflux. Electronically signed by: Bill Gavin MD 01/25/2025 10:12 AM EDT Dictated By: Bill Hi MD Signed By: <Electronically signed by Bill Pacheco MDin OV> 01/25/25 1012 DD/ 0901 TD/TT: 01/25/25926 Stucco Worker: [facility] External Provider CV VASC ULAR PROCEDURES Final Result [facility] [address] [place] [address] * Referral to Orthopaedic Surgery (12/11/2024) us Yaniv Pelaez MD OUTPATIENT REFERRAL ORDERABLES F inal Result * Lipid Panel, Standard (08/07/2024 2:25 PM EDT) Triglycerides 63 <150 mg/dL [facility] Comment:Desirable Triglyceri de: less than 150 mg/dLBorderline High Triglyceride 150-199 mg/dLHigh Triglyceride: 200-499 mg/dLVery High Triglyceride: greater than or equal to 5OO mg/dL Cholesterol 154 <200 mg/dL [facility] Comment:Desirable Cholestero l: less than 200 mg/dLBorderline High Cholesterol: 200-239 mg/dLHigh Cholesterol: greater than 239 mg/dL LDL Cholesterol Calculated 92 <100 mg/dL [facility] Comment:Desirable LDL: less than 100 mg/dLNear Optimal/Above Optimal LDL: 110- 129 mg/dLBorderline High LDL: 130-159 mg/dLHigh LDL: 160-189 mg/dLVery High LDL: greater than or equal to 190 mg/dL HDL Cholesterol 50 >40 mg/dL [facility] Comment:Desirable HDL: great er than 40 mg/dL Note: This HDL assay may give artificially low results in patients with liver disease. Blood Venous blood specimen / Unknown 08/07/2024 2:25 PM EDT 08/07/2024 4:10 PM EDT us Ceci Peacock MD LAB BLOOD ORDERABLES Final Result Performing Organization Address City/[facility]/ZIP Co de Phone Number [facility] [address] [place] [address] [phone] * BI Mammogram Screening Tomosynthesis Bilateral (07/12/2024 1:45 PM EDT) Anatomical Region Laterality Modality Breast Bilateral Mammography 07/12/2024 1:45 PM EDT Narrative 07/20/2024 4:18 PM EDT [facility] [address] [place] [address] Mammography Report Signed Patient: Windy Mcfarlane MR# : [id number] : 1975 Acct:[id number] Age/Sex: 48 / F ADM Date: 07/12/24 Loc: HO.MAMMO Attending Dr: Ceci Peacock MD Ordering Physician: Ceci Billings MD Results: 2Benign Findings Date of Service: 07/12/24 Follow Up: 1 Year From Orig inal Mammogram Procedure(s): MM tomosynthesis screening BI Accession Number(s): [id number] cc: Ceci Billings MD EXAMINATION: MM SCREENING [...] 07/20/24 1614 DD/ 1345 TD/TT: 07/12/24 1401 Stucco Worker: Procedure Note Donotuseinterpreter, Image - 07/20/2024 [facility] [address] [place] [address] [place] [address] Mammography Report Signed Patient: Windy McfarlaneMR# : [id number] : 1975Acct:[id number] Age/Sex: 48 / FADM Date: 07/12/24 Loc: HO.MAMMO Attending Dr: Ceci Peacock MD Ordering Physician: Ceci Billings MDResults: 2Benign Findings Date of Service: 07/12/24Follow Up: 1 Year From Orig ina Mammogram Procedure(s): MM tomosynthesis screening BI Accession Number(s): [id number] cc: Ceci Billings MD EXAMINATION: MM SCREENING [...] 07/20/24 1614 DD/ 1345 TD/TT: 07/12/24 1401 Stucco Worker: Ceci Peacock MD IMG BI PROCEDURES Fin [...] [facility] Comment: Methodology: Information Technology Specialist-Mediated Amplification This assay detects E6/E7 viral messenger RNA (mRNA) from 14 high-risk HPV types (16,18,31,33,35,39,45,51,52,56,58,59,66,68). Cervical sources are required for HPV testing. If a vaginal source from a patient who has had a total hysterectomy with removal of cervix was submitted, please contact the testing laboratory for alternative testing options. For additional information, please refer to http://education.Distra/faq/UAT094v0 (This link if provided for information/ educational purposes only.) THIS TEST WAS PERFORMED AT: [facility] [address] [place] [address] [address],[place] [address] TIN DICKEY MD 11/09/2021 2:40 PM EDT [place] HISTORICAL/NON ORDERABLE LABS Fi nal Result Performing Organization Address City/State/[facility] Co de Phone Number [facility] [address] from Last 3 Months or Most Recently Relevant to Health Maintenance Insurance MEDICARE [facility] STAND[facility] Care Teams Duck Farmer Relationship Specialty Start Date End Date Ceci Billings MD [address] [place] [phone] PCP - General Family Medicine 06/02/20
--- OUTSIDE RECORDS SUMMARY | 2025-02-26 06:21 | XMS_ITS | Encounter Summary ---
Author Organization [employer] Address [address] [place] [address] Care Team Providers Care Line Painting Machine Operator Name Role Phone Ceci Billings MD Primary Care Provide r Reason for Visit * Reason Onset Date Comments Medication Question 03/12/2024 Encounter Details Date Type Department Care Team ([facility] Contact Info) Description 03/12/2024 Telephone [facility] [address] [place] [address] Ceci Billings MD [address] [place] [address] Medication Question Social History Tobacco Use Types [...] questions on med PA . Callback number [phone] documented in this encounter Plan of Treatment Upcoming Encounters Date Type Department Care Team (Late st Contact Info) Description 03/19/2025 9:00 AM EST Office Visit [facility] [address] [place] [address] Ceci Billings MD [address] [place], [place] [phone] documented as of this encounter Visit Diagnoses Not on filedocumented in this encounter Additional Health Concerns Assessment Noted Time PHQ-9 Depression Total Score: 0 10/05/19 24 9:33 AM EDT documented as of this encounter Care Teams Line Painting Machine Operator Relationship Specialty Start Date End Date Ceci Billings MD [address] [place] [address] PCP - General Family Medicine 06/02/20 documented as of this encounter
--- OUTSIDE RECORDS SUMMARY | 2025-02-26 06:22 | XMS_ITS | Encounter Summary ---
Author Organization [employer] Address [address] [facility] 7t [place] [address] Care Team Providers Care Industrial Recruiter Name Role Phone Ceci Billings MD Primary Care Provide r Reason for Visit * Reason Comments Med Refill Encounter Details Date Type Department Care Team ([facility] Contact Info) Description 04/30/2022 Refill [facility] [address] [place] [address] Jesús Vale MD [address] [place] [address] Influenza-like illness Social History Tobacco Use Types [...] Upcoming Encounters Date Type Department Care Team ([facility] Contact Info) Description 03/19/2025 9:00 AM EST Office Visit [facility] [address] [place] [address] Ceci Billings MD [address] [place], [place] [phone] documented as of this encounter Visit Diagnoses Diagnosis Influenza-like illness documented in this encounter Care Teams Industrial Recruiter Relationship Specialty Start Date End Date Ceci Billings MD [address] [place], [place] [phone] PCP - General Family Medicine 06/02/20 documented as of this encounter
--- OUTSIDE RECORDS SUMMARY | 2025-02-26 06:22 | XMS_ITS | Encounter Summary ---
Author Organization [employer] Address [address] [facility] [address] [place] [address] Care Team Providers Care Manager Float Name Role Phone Ceci Billings MD Primary Care Provide r Reason for Visit * Reason Onset Date Comments Med Refill 10/31/2024 Encounter Details Date Type Department Care Team (Late st Contact Info) Description 10/31/2024 Refill [facility] [address] [place] [address] Ceci Billings MD [address] [place] [address] Multiple joint pain Social History Tobacco Use [...] AM EST Office Visit [facility] [address] [place] [phone] Ceci Billings MD [address] [place] [address] documented as of this encounter Visit Diagnoses Diagnosis Multiple joint pain Pain in joint, multiple sites documented in this encounter Additional Health Concerns Assessment Noted Time PHQ-9 Depression Total Score: 0 09/08/19 25 9:03 AM EDT documented as of this encounter Care Teams Manager Float Relationship Specialty Start Date End Date Ceci Billings MD [address] [place] [address] PCP - General Family Medicine 06/02/20 documented as of this encounter
--- OUTSIDE RECORDS SUMMARY | 2025-02-26 06:23 | XMS_ITS | Encounter Summary ---
Author Organization [employer] Address [address] [facility] [place] [address] Care Team Providers Care Professional Model Name Role Phone Ceci Billings MD Primary Care Provide r Reason for Visit * Reason Comments Med Refill Encounter Details Date Type Department Care Team (Late st Contact Info) Description 07/18/2024 Refill [facility] [address] [place] [address] Ceci Billings MD [address] [place] [address] Social History Tobacco Use Types Packs/Day Years [...] Description 03/19/2025 9:00 AM EST Office Visit [facility] [address] [place] [address] Ceci Billings MD [address] [place] [address] documented as of this encounter Visit Diagnoses Not on filedocumented in this encounter Additional Health Concerns Assessment Noted Time PHQ-9 Depression Total Score: 0 10/05/19 24 9:33 AM EDT documented as of this encounter Care Teams Professional Model Relationship Specialty Start Date End Date Ceci Billings MD [address] [place] [address] PCP - General Family Medicine 06/02/20 documented as of this encounter
--- OUTSIDE RECORDS SUMMARY | 2025-02-26 06:23 | XMS_ITS | Encounter Summary ---
Author Organization [employer] Address [address] [place] [address] [address]t [place] [address] Care Team Providers Care Credit Reporter Name Role Phone Ceci Billings MD Primary Care Provide r Encounter Details Date Type Department Care Team (Late st Contact Info) Description 05/27/2022 Telephone [facility] [address] [place] [address] Ceci Billings MD [address] [place] [address] [phone] Social History Tobacco Use Types Packs/Day Years [...] Description 03/19/2025 9:00 AM EST Office Visit [facility] [address] [place] [address] Ceci Billings MD [address] [place], [place] [phone] documented as of this encounter Visit Diagnoses Not on filedocumented in this encounter Care Teams Credit Reporter Relationship Specialty Start Date End Date Ceci Billings MD [address] [place] [address] PCP - General Family Medicine 06/02/20 documented as of this encounter
--- OUTSIDE RECORDS SUMMARY | 2025-02-26 06:23 | XMS_ITS | Encounter Summary ---
Author Organization [employer] Address [address] 7[address] [place] [address] Care Team Providers Care Tomato Paste Maker Name Role Phone Ceci Billings MD Primary Care Provide r Encounter Details Date Type Department Care Team ([facility] Contact Info) Description 10/16/2024 Telephone [facility] [address] [place] [address] Ceci Billings MD [address] [place] [address] Social History Tobacco Use Types Packs/Day Years [...] Office Visit [facility] [address] [place] [address] Ceci Billings MD [address] [place] [address] documented as of this encounter Visit Diagnoses Not on filedocumented in this encounter Additional Health Concerns Assessment Noted Time PHQ-9 Depression Total Score: 0 09/08/19 9:03 AM EDT documented as of this encounter Care Teams Tomato Paste Maker Relationship Specialty Start Date End Date Ceci Billings MD [address] [place] [phone] PCP - General Family Medicine 06/02/20 documented as of this encounter
--- OUTSIDE RECORDS SUMMARY | 2025-02-26 06:24 | XMS_ITS | Encounter Summary ---
Author Organization [employer] Address [address] [place] [address] Care Team Providers Care Ergonomics Engineer Name Role Phone Ceci Billings MD Primary Care Provide r Encounter Details Date Type Department Care Team (Late st Contact Info) Description 07/27/2023 Orders Only [facility] [address] [place] [address] Ceci Billings MD [address] [place] [address] Class 3 severe obesity with serious comorbidity [...] 03/19/2025 9:00 AM EST Office Visit [facility] [address] [place] [address] Ceci Billings MD [address] [place] [address] documented as of this encounter Visit Diagnoses Diagnosis Class 3 severe obesity with serious comorbidity and body mass index (BMI) of 45.0 to 49.9 in adult, unspecified obesity type (HCC)- Primary documented in this encounter Additional Health Concerns Assessment Noted Time PHQ-9 Depression Total Score: 5 07/07/19 24 10:12 AM EDT documented as of this encounter Care Teams Ergonomics Engineer Relationship Specialty Start Date End Date Ceci Billings MD [address] [place] [address] PCP - General Family Medicine 06/02/20 documented as of this encounter
--- OUTSIDE RECORDS SUMMARY | 2025-02-26 06:24 | XMS_ITS | Encounter Summary ---
Author Organization [employer] Address [address] [place] [address] 7t [place] [address] Care Team Providers Care Digital Production Operator Name Role Phone Ceci Billings MD Primary Care Provide r Reason for Visit * Reason Comments Med Refill Encounter Details Date Type Department Care Team (Late Contact Info) Description 12/02/2022 Refill [facility] [address] [place] [address] Name, MD Yaniv [address] [place] [address] Insomnia, unspecified type Social History Tobacco Use [...] Upcoming Encounters Date Type Department Care Team ([facility] Contact Info) Description 03/19/2025 9:00 AM EST Office Visit [facility] [address] [place] [address] Ceci Billings MD [address] [place] [address] documented as of this encounter Visit Diagnoses Diagnosis Insomnia, unspecified type documented in this encounter Additional Health Concerns Assessment Noted Time PHQ-9 Depression Total Score: 0 08/07/19 23 9:07 AM EDT documented as of this encounter Care Teams Digital Production Operator Relationship Specialty Start Date End Date Ceci Billings MD [address] [place] [address] PCP - General Family Medicine 06/02/20 documented as of this encounter
--- OUTSIDE RECORDS SUMMARY | 2025-02-26 06:24 | XMS_ITS | Encounter Summary ---
Author Organization [employer] Address [address] 7[address] [place] [address] Care Team Providers Care Powerhouse Electrician Apprentice Name Role Phone Ceci Billings MD Primary Care Provide r Reason for Visit * Reason Comments Med Refill Encounter Details Date Type Department Care Team (Late st Contact Info) Description 11/30/2023 Refill [facility] [address] [place] [address] Ceci Billings MD [address] [place] [address] Muscle spasm Social History Tobacco Use Types [...] Description 03/19/2025 9:00 AM EST Office Visit [facility] [address] [place] [address] Ceci Billings MD [address] [place] [address] documented as of this encounter Visit Diagnoses Diagnosis Muscle spasm Spasm of muscle documented in this encounter Additional Health Concerns Assessment Noted Time PHQ-9 Depression Total Score: 0 10/05/19 24 9:33 AM EDT documented as of this encounter Care Teams Powerhouse Electrician Apprentice Relationship Specialty Start Date End Date Ceci Billings MD [address] [place] [address] PCP - General Family Medicine 06/02/20 documented as of this encounter
== END 2025-02-26 06:17 | disposition home or self-care (01) ==
LOC: CF 06:16
PROVIDERS: Visit Provider Anesthesiology
DX: M53.3 Sacrococcygeal disorders, not elsewhere classified (principal)
CPT/HCPCS: 27096; J2003; J2795; Q9967

== ENCOUNTER 2025-02-26 09:40 | Outpatient (AMB) | payer MEDICARE, MEDICAID, SELFPAY ==
--- NOTE | 2025-02-26 09:49 | MHC.OFFVIS ---
Vital Signs 02/26/25 10:01 02/26/25 10:26 Height 5 ft 8 in Weight 244 lb BMI 37.1 BP 99/57 L 92/59 L Blood Pressure Location Lt brachial Lt brachial Position Sitting Sitting Respiration 16 16 Pulse 94 79 Pulse Source Pulse Oximeter Pulse Oximeter Pulse Oximetry (%) 96 97 Oxygen Delivery Method Room Air Room Air Intake Visit Reasons: Bilateral DX SIJ Injections/ Ativan Allergies ciprofloxacin (From CIPRO) Allergy (Severe, Verified 02/07/25 13:28) GI PAIN vancomycin Allergy (Severe, Verified 02/07/25 13:28) Anaphylaxis [facility] Medical History COVID Somnolence, daytime TANA (obstructive sleep apnea) Allergic rhinitis Bronchial asthma Trigger finger Dysuria Obesity, morbid, BMI 40.0-49.9 Encounter for Papanicolaou smear for cervical cancer screening Asthma Insomnia Crohn's disease Surgical History History of removal of laparoscopic gastric banding device Hx of hand surgery History of carpal tunnel surgery Hx of laparoscopic gastric banding Hx of breast reduction, elective Family History Father HIV (human immunodeficiency virus infection) Mother Hypertension Maternal Grandmother Diabetes mellitus Maternal Grandfather Hypertension Lymphoma Paternal Grandfather No problems noted. 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 Windy is very pleasant 49 years old female suffering from sacroiliitis and bilateral sacroiliac joint dysfunction . She came today to the operating room to receive diagnostic bilateral SI joint injection. Informed consent was thoroughly explained to the patient risks and benefits were explained. The patient was positioned prone on the operating table with pillow under her abdomen. The lower back and upper buttocks were prepped with ChloraPrep and draped with sterile self adhesive utility towels. C-arm was brought over the operating field and sq picture of the bilateral sacroiliac joint was demonstrated on the screen. Tilting C-arm contralateral to each joint the posterior silhouette of the sacroiliac joint was superimposed on anterior silhouette of the sacroiliac joints. Slightly medial to the projection of the joints to the skin injection of the local anesthetic lidocaine 2% mixed with ropivacaine 0.5% was performed. After that 22 gauge 3-1/2 inch needle was driven to the point of interest in tunnel vision fashion. When tip of the needle entered posterior capsule of the each joint injection of the contrast was performed delineating arthrogram. After that injection of the ropivacaine 0.5% 5 ml was performed into each joint. Upon completion of the injection needle was withdrawn sterile Band-Aid was applied. The patient tolerated the procedure well. Orders: Orders FL guidance in treatment room 02/26/25 M53.3 - Sacrococcygeal disorders, not elsewhere classified Medications: New lorazepam (Ativan) Take 30 minutes prior to arrival to procedure 1 mg PO ONCE 1 tab 0RF anxiety Coding Level of Care Code Procedure Only Diagnoses Sacroiliac joint dysfunction of both sides M53.3
[2025-02-26 10:01] VITALS: BP 99/57; PULSE 94; RESP 16; O2SAT 96; BMI 37.1
[2025-02-26 10:26] VITALS: BP 92/59; PULSE 79; RESP 16; O2SAT 97
== END 2025-02-26 10:26 | disposition home or self-care (01) ==
LOC: HO.PMCPRC 09:40
PROVIDERS: PCP Internal Medicine; Visit Provider Anesthesiology
DX: M53.3 Sacrococcygeal disorders, not elsewhere classified (principal)
CPT/HCPCS: 27096

== ENCOUNTER 2025-03-01 13:09 | Outpatient (AMB) | payer MEDICARE, MEDICAID, SELFPAY ==
--- OUTSIDE RECORDS SUMMARY | 2024-02-07 04:50 | XMS_ITS ---
Author Organization [facility] Address [address] [place] [phone] Care Team Providers Care Transportation Worker Name Role Phone Ceci Blackburn M.D. Primary Care Provider Emerson Schwartz [phone] REASON FOR VISIT Patient presents today for GERD, CROHN'S. Encounters Encounter Location Date Provider Diagnosis [facility] [address] [facility] [address] [place] [phone] 02/07/2024 Emerson Canales Plan Of Treatment Next Appt Details Provider Name:Emerson Canales , 07/30/2025 09:10:00 AM, [address] [place] [address], Suite [facility], [place], [address], Progress Notes * STEPHIE DORSEYDOB: [birth year] (49 yo F)Acc No.[id number]:02/07/2024 Progress Notes Patient: Halley STEPHIE NICK Provider: Olu Canales MD :1975 A ge:48 Y S ex:Female Date:02/07/2024 Address:[address] [place], [place] Pcp:Ceci Blackburn M.D. Subjective: * Chief Complaints: * 1 . Patient presents today for GERD, CROHN'S.. * Medical History: Objective: * Vitals: Assessment: Plan: * Treatment: * * The named appointment provid er may or may not be the originator of this progress note, and it is not deemed complete until electronically signed by the appointment provider. Sign off status: Pending * Provider: Olu Canales MD Date: 1 Generated for Arpit ribeiro/Enmanuel/Daniel on: 05/01/2024 03:18 PM EST
--- NOTE | 2025-03-01 13:11 | MHC.OFFVIS ---
Vital Signs 03/01/25 13:12 Height 5 ft 8 in Weight 237 lb BMI 36.0 BP 110/63 Blood Pressure Location Rt brachial Position Sitting Respiration 16 Pulse 103 H Pulse Source Pulse Oximeter Pulse Oximetry (%) 99 Oxygen Delivery Method Room Air Intake Visit Reasons: S/P Bilateral DX SIJ Injections Service Desk Technician Required: No Accompanied by: Self / Same As Patient Allergies ciprofloxacin (From CIPRO) Allergy (Severe, Verified 03/01/25 13:11) GI PAIN vancomycin Allergy (Severe, Verified 03/01/25 13:11) Anaphylaxis HPI Comments Details: The patient is a 49-year-old female presenting with sacroiliac joint pain. She underwent bilateral diagnostic sacroiliac joint injections three days ago, which initially reduced her pain from a level of 5-6 to 0 out of 10. She experienced complete pain relief for five hours post-procedure, after which the pain gradually returned. Prior to the procedure, her pain was exacerbated by sitting, standing, and walking, but she reported no pain during these activities immediately after the procedure. The pain began to return approximately five hours post-procedure, becoming uncomfortable but not as severe as before. - Onset: Pain began prior to the procedure, exacerbated by sitting, standing, and walking. - Quality: Initially reduced to a 0 out of 10 post-procedure, with complete relief for five hours. - Location: Sacroiliac joint area. - Radiation: Not specified. - Exacerbating factors: Sitting, standing, walking. - Relieving factors: Diagnostic sacroiliac joint injections provided temporary relief. - Affect: Not discussed. - Analgesia: Pain reduced from 5-6 to 0 out of 10 post-procedure; Tylenol recommended for ongoing management. - Adverse Effects: Not discussed. - Activities of Daily Living: Pain previously affected sitting, standing, and walking; improved post-procedure. - Aberrant Drug Related Behaviors: Not discussed. [facility] Medical History COVID Somnolence, daytime ATNA (obstructive sleep apnea) Allergic rhinitis Bronchial asthma Trigger finger Dysuria Obesity, morbid, BMI 40.0-49.9 Encounter for Papanicolaou smear for cervical cancer screening Asthma Insomnia Crohn's disease Surgical History History of removal of laparoscopic gastric banding device Hx of hand surgery History of carpal tunnel surgery Hx of laparoscopic gastric banding Hx of breast reduction, elective Family History Father HIV (human immunodeficiency virus infection) Mother Hypertension Maternal Grandmother Diabetes mellitus Maternal Grandfather Hypertension Lymphoma Paternal Grandfather No problems noted. 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 Physical Exam Exam Exam: General: awake, alert, oriented. Answers questions appropriately. Fully engaged in examination. Skin: warm, dry, intact HEENT: Normocephalic. Hearing intact. Cardiac: External chest normal in appearance. Respiratory: No cough, audible wheezing or stridor. Abdomen: without gross distension. MS: No obvious swelling or deformities. Able to transition from sit to stand unassisted. Ambulates with bilaterally normal heel strike and toe off Neurological: Oriented to person, place, time and situation. Thought process intact. No gait abnormalities appreciated. Psychiatric: Appropriate mood and affect. Good judgment and insight. Vital Signs: Last Vital Signs Pulse 103 H 03/01/25 13:12 Resp 16 03/01/25 13:12 BP 110/63 03/01/25 13:12 Pulse Ox 99 03/01/25 13:12 Oxygen Delivery Method Room Air 03/01/25 13:12 BMI result Body Mass Index 36.0 Results Reviewed Results Reviewed: 01/04/23 PROCEDURE: MR SPINE LUMBAR without CONTRAST FINDINGS: Routine spinal anatomy is presumed. There are no comparison examinations. The last well-formed intervertebral disc is annotated as L5-S1. A saved screen has been sent to PACS for reference. Normal lumbar alignment is demonstrated. Vertebral heights are well maintained. Bone marrow signal is within normal limits, and no suspicious osseous lesion is identified. Conus medullaris is unremarkable. Paraspinal soft tissues and visualized portions of the abdomen and pelvis are unremarkable. At T12-L1 no significant disc bulging. No central canal or neural foraminal narrowing. At L1-2 there is no significant disc bulging. No central canal or neural foraminal narrowing. At L2-3 there is no significant disc bulging. Mild facet arthropathy. No central canal or neural foraminal narrowing. At L3-4 there is no significant disc bulging. Mild bilateral facet arthropathy. No central canal or neural foraminal narrowing. At L4-5 there is mild annular bulging within the left foraminal region. Bilateral facet arthropathy with mild ligamentum flavum thickening. Mild neural foraminal narrowing greater on the left. No central canal narrowing. At L5-S1 there is disc desiccation. Mild annular bulging. Mild facet arthropathy. Mild neural foraminal narrowing. No central canal narrowing. IMPRESSION: No evidence of acute fracture or traumatic subluxation of the lumbar spine. Mild spondylitic change of the lumbar spine as described. Assessment & Plan Assessment & Plan (1) Sacroiliac joint dysfunction of both sides: Code(s): M53.3 - Sacrococcygeal disorders, not elsewhere classified Category: Medical (2) Osteoarthritis of left knee: Code(s): M17.12 - Unilateral primary osteoarthritis, left knee Category: Medical (3) Patellofemoral arthritis of right knee: Code(s): M17.11 - Unilateral primary osteoarthritis, right knee Category: Medical Plan The plan is to proceed with fluoroscopy guided bilateral sacroiliac joint injection, this time including steroids to provide longer-lasting pain relief. Insurance approval will be sought for the procedure, and once obtained, the patient will be scheduled for the injection. In the interim, the patient is advised to continue using Tylenol for pain management. Physical therapy may be considered following the steroid injection to further alleviate pain and improve function. Schedule for fluoroscopy guided bilateral therapeutic sacroiliac joint injection with local anesthetic Patient was informed and verbally consented to the use of an ambient scribe for clinic note documentation during this visit. Patient Instructions: - Continue taking Tylenol as needed for pain relief. - Await a call for scheduling the steroid injection once insurance approval is obtained. - Consider physical therapy after the steroid injection to improve function and reduce pain. Coding Level of Care Code Est Pt Level 3 (37247) Complex EM visit Add On G2211 Diagnoses Sacroiliac joint dysfunction of both sides M53.3 Osteoarthritis of left knee M17.12 Patellofemoral arthritis of right knee M17.11
[2025-03-01 13:12] VITALS: BP 110/63; PULSE 103; RESP 16; O2SAT 99; BMI 36.0
--- OUTSIDE RECORDS SUMMARY | 2025-03-01 15:18 | XMS_ITS | Encounter Summary ---
Author Organization [email or web address] Address [address] [place] [address] Care Team Providers Care Epic Radiant Analyst Name Role Phone Ceci Billings MD Primary Care Provide r Encounter Details Date Type Department Care Team (Late st Contact Info) Description 08/15/2024 Orders Only [facility] [address] [place] [address] Provider, MD [place] Social History Tobacco Use [...] 03/19/2025 9:00 AM EST Office Visit [facility] [address] [place] [address] Ceci Billings MD [address] [place] [address] documented as of this encounter Procedures Procedure [...] documented as of this encounter Care Teams Epic Radiant Analyst Relationship Specialty Start Date End Date Ceci Billings MD [address] [place] [address] PCP - General Family Medicine 06/02/20 documented as of this encounter
--- OUTSIDE RECORDS SUMMARY | 2025-03-01 15:18 | XMS_ITS | Encounter Summary ---
Author Organization [employer] Address [address] [place] [address] Care Team Providers Care Dining Car Server Name Role Phone Ceci Billings MD Primary Care Provide r Reason for Visit * Reason Comments Med Refill Encounter Details Date Type Department Care Team (Late st Contact Info) Description 01/03/2024 Refill [facility] [address] [place] [address] Ceci Billings MD [address] [place] [address] Social History Tobacco Use Types Packs/Day Years [...] Description 03/19/2025 9:00 AM EST Office Visit [facility] [address] [place] [address] Ceci Billings MD [address] [place] [address] documented as of this encounter Visit Diagnoses Not on filedocumented in this encounter Additional Health Concerns Assessment Noted Time PHQ-9 Depression Total Score: 0 10/05/19 24 9:33 AM EDT documented as of this encounter Care Teams Dining Car Server Relationship Specialty Start Date End Date Ceci Billings MD [address] [place] [address] PCP - General Family Medicine 06/02/20 documented as of this encounter
--- OUTSIDE RECORDS SUMMARY | 2025-03-01 15:18 | XMS_ITS | Encounter Summary ---
Author Organization [employer] Address [address] [place] [address] Care Team Providers Care Retail Route Supervisor Name Role Phone Ceci Billings MD Primary Care Provide r Encounter Details Date Type Department Care Team (Late st Contact Info) Description 12/25/2024 Orders Only [facility] [address] [place] [address] Ceci Billings MD [address] [place] [address] Social History Tobacco Use Types Packs/Day Years [...] Description 03/19/2025 9:00 AM EST Office Visit [facility] [address] [place] [address] Ceci Billings MD [address] [place] [address] documented as of this encounter Visit Diagnoses Not on filedocumented in this encounter Additional Health Concerns Assessment Noted Time PHQ-9 Depression Total Score: 4 12/21/19 25 11:24 AM EDT documented as of this encounter Care Teams Retail Route Supervisor Relationship Specialty Start Date End Date Ceci Billings MD [address] [place] [address] PCP - General Family Medicine 06/02/20 documented as of this encounter
--- OUTSIDE RECORDS SUMMARY | 2025-03-01 15:18 | XMS_ITS | Clinical Summary ---
Author Organization [facility] Address [address] [place] [address] Phone Care Team Providers Care Competitive Intelligence Manager Name Role Phone Katrina Sherwood MD Primary Care Provider [phone] Allergies Active Allergy Reactions Criticality Noted Date [...] Care Team Description 02/13/2025 Telephone Orthopedic Surgery [facility] [address] [phone] Juan Moody DPM 02/11/2025 1:00 PM EDT Office Visit Orthopedic Surgery [facility] [address] [phone] Juan Moody DPM Posterior tibial tendinitis of right leg (Primary Dx); Lumbosacral radiculopathy; Plantar fasciitis; Max's neuroma of right foot 12/11/2024 1:15 PM EDT Office Visit Orthopedic Surgery [facility] [address] [phone] Juan Moody DPM Posterior tibial tendinitis of [...] PM EST Office Visit Orthopedic Surgery - [place] [address] [phone] Juan Moody, DPAng [address] [address] Health Maintenance Due Date Last Done Comments [...] * Cervical Cancer Screening: HPV (11/09/2021) Pathologist [facility] Cervical Cancer Screening: HPV abstracted Historical Provider HEALTH MAINTENANCE Final Result from Last 3 Months or Most Recently Relevant to Health Maintenance Insurance MEDICAID - [place] MEDICARE Care Teams Competitive Intelligence Manager Relationship Specialty Start Date End Date Kaela, MD Katrina [address] [place] [address] [place] [phone] PCP - General Internal Medicine 01/02/14
--- OUTSIDE RECORDS SUMMARY | 2025-03-01 15:19 | XMS_ITS | Encounter Summary ---
Author Organization [employer] Address [address] 7t [place] [address] Care Team Providers Care Law Enforcement Officer Name Role Phone Ceci Billings MD Primary Care Provide r Reason for Visit * Reason Comments Med Refill Encounter Details Date Type Department Care Team (Late st Contact Info) Description 11/30/2023 Refill [facility] [address] [place] [address] Ceci Billings MD [address] [place] [address] Muscle spasm Social History Tobacco Use Types [...] 03/19/2025 9:00 AM EST Office Visit [facility] [address] [place] [address] Ceci Billings MD [address] [place] [address] documented as of this encounter Visit Diagnoses Diagnosis Muscle spasm Spasm of muscle documented in this encounter Additional Health Concerns Assessment Noted Time PHQ-9 Depression Total Score: 0 10/05/19 24 9:33 AM EDT documented as of this encounter Care Teams Law Enforcement Officer Relationship Specialty Start Date End Date Ceci Billings MD [address] [place] [address] PCP - General Family Medicine 06/02/20 documented as of this encounter
--- OUTSIDE RECORDS SUMMARY | 2025-03-01 15:19 | XMS_ITS | Encounter Summary ---
Author Organization [employer] Address [address] 7[address] [place] [address] Care Team Providers Care Associate Spa Director Name Role Phone Ceci Billings MD Primary Care Provide r Encounter Details Date Type Department Care Team (Late st Contact Info) Description 07/27/[address] [facility] [address] [place] [address] Ceci Billings MD [address] [place] [address] Class 3 severe obesity with serious comorbidity [...] 03/19/2025 9:00 AM EST Office Visit [facility] [address] [place] [address] Ceci Billings MD 230 [place] [address] documented as of this encounter Visit Diagnoses Diagnosis Class 3 severe obesity with serious comorbidity and body mass index (BMI) of 45.0 to 49.9 in adult, unspecified obesity type (HCC)- Primary documented in this encounter Additional Health Concerns Assessment Noted Time PHQ-9 Depression Total Score: 5 07/07/19 24 10:12 AM EDT documented as of this encounter Care Teams Associate Spa Director Relationship Specialty Start Date End Date Ceci Billings MD [address] [place] [address] PCP - General Family Medicine 06/02/20 documented as of this encounter
--- OUTSIDE RECORDS SUMMARY | 2025-03-01 15:19 | XMS_ITS | Encounter Summary ---
Author Organization [employer] Address [address] 7[address] [place] [address] Care Team Providers Care Senior Occupational Therapist Name Role Phone Ceci Billings MD Primary Care Provide r Reason for Visit * Reason Comments Med Refill Encounter Details Date Type Department Care Team (Late st Contact Info) Description 07/18/2024 Refill [facility] [address] [place] [address] Ceci Billings MD [address] [place] [address] Social History Tobacco Use Types Packs/Day Years [...] 9:00 AM EST Office Visit [facility] [address] [place] [address] Ceci Billings MD [address] [place] [address] documented as of this encounter Visit Diagnoses Not on filedocumented in this encounter Additional Health Concerns Assessment Noted Time PHQ-9 Depression Total Score: 0 10/05/19 24 9:33 AM EDT documented as of this encounter Care Teams Senior Occupational Therapist Relationship Specialty Start Date End Date Ceci Billings MD [address] [place] [address] PCP - General Family Medicine 06/02/20 documented as of this encounter
--- OUTSIDE RECORDS SUMMARY | 2025-03-01 15:19 | XMS_ITS | Encounter Summary ---
Author Organization [employer] Address [address] [facility] 7t [place] [address] Care Team Providers Care Quality Measurement Specialist Name Role Phone Ceci Billings MD Primary Care Provide r Reason for Visit * Reason Onset Date Comments Med Refill 10/31/2024 Encounter Details Date Type Department Care Team (Late st Contact Info) Description 10/31/2024 Refill [facility] [address] [place] [address] Ceci Billings MD [address] [place] [address] Multiple joint pain Social History Tobacco Use [...] [facility] [address] [place] [phone] Ceci Billings MD [address] [place] [address] documented as of this encounter Visit Diagnoses Diagnosis Multiple joint pain Pain in joint, multiple sites documented in this encounter Additional Health Concerns Assessment Noted Time PHQ-9 Depression Total Score: 0 09/08/19 25 9:03 AM EDT documented as of this encounter Care Teams Quality Measurement Specialist Relationship Specialty Start Date End Date Ceci Billings MD [address] [place] [address] PCP - General Family Medicine 06/02/20 documented as of this encounter
--- OUTSIDE RECORDS SUMMARY | 2025-03-01 15:19 | XMS_ITS | Encounter Summary ---
Author Organization [employer] Address [address] [facility] [address] [address] [address] 7[address] [place] [address] Care Team Providers Care Balance Weigher Name Role Phone Ceci Billings MD Primary Care Provide r Encounter Details Date Type Department Care Team (Late st Contact Info) Description 07/03/2024 Orders Only [facility] [address] [place] [address] Provider, MD Chito Social History Tobacco Use [...] Description 03/19/2025 9:00 AM EST Office Visit [facility] [address] [place] [address] Ceci Billings MD [address] [place] [address] documented as of this encounter Procedures Procedure [...] PM EDT Narrative 07/20/2024 4:18 PM EDT [facility] [address] [place] [address] Mammography Report Signed Patient: Windy Mcfarlane MR# : [id number] : 1975 Acct:[id number] Age/Sex: 48 / F ADM Date: 07/12/24 Loc: HO.MAMMO Attending Dr: Ceci Peacock MD Ordering Physician: Ceci Billings MD Results: 2Benign Findings Date of Service: 07/12/24 Follow Up: 1 Year From Orig inal Mammogram Procedure(s): MM tomosynthesis screening BI Accession Number(s): [id number] cc: Ceci Billings MD EXAMINATION: MM SCREENING [...] 07/20/24 1614 DD/ 1345 TD/TT: 07/12/24 1401 Headrig Sawyer: Procedure Note Donotuseinterpreter, Image - 07/20/2024 [place] [facility]'s [address] [place] [address] Mammography Report Signed Patient: Windy McfarlaneMR# : [id number] : 1975Acct:[id number] Age/Sex: 48 / FADM Date: 07/12/24 Loc: HO.MAMMO Attending Dr: Ceci Peacock MD Ordering Physician: Ceci Billings MDResults: 2Benign Findings Date of Service: 07/12/24Follow Up: 1 Year From Orig inal Mammogram Procedure(s): MM tomosynthesis screening BI Accession Number(s): [id number] cc: eCci Billings MD EXAMINATION: MM SCREENING DIGITAL BREAST [...] 07/20/24 1614 DD/ 1345 TD/TT: 07/12/24 1401 Headrig Sawyer: us Ceci Peacock MD IMG BI PROCEDURES Fin al Result * Bacterial Vaginosis (07/03/2024 12:00 AM EDT) TRICHOMONAS VAGINALIS DETECTION BY PCR NOT DETECTED Not Detect [facility] BACTERIAL VAGINOSIS DETECTION BY PCR NEGATIVE Negative [facility] Comment:The BV organism targ ets [...] DETECTION BY PCR NOT DETECTED Not Detect [facility] Jeni glab krusei PCR NOT DETECTED Not Detect [facility] 07/03/2024 07/03/2024 us Generic External Data Provider LAB MICROBIOLOGY - GENERAL ORDERABLES Final Result [facility] [address] [place] [address] [phone] * Chlamydia/N. Gonorrhoeae RNA, TMA, Urogenitial (07/03/2024 12:00 AM EDT) CT PCR NOT DETECTED Not Detect. [facility] Comment:A not detected test result [...] psychologicalconsequences. NG PCR NOT DETECTED Not Detect. [facility] Comment:A not detected test result [...] medical, social or psychologicalconsequences. 07/03/2024 07/03/2024 Narrative [facility] - 07/04/2024 5:16 AM EDT Vaginal us Generic External Data Provider LAB MICROBIOLOGY - GENERAL ORDERABLES Final Result [facility] [address] [place] [address] [phone] * Colonoscopy (08/23/2023 11:53 AM EDT) us Historical Provider HEALTH MAINTENANCE Final Result documented in this encounter Visit Diagnoses Not on filedocumented in this encounter Additional Health Concerns Assessment Noted Time PHQ-9 Depression Total Score: 0 10/05/19 24 9:33 AM EDT documented as of this encounter Care Teams Balance Weigher Relationship Specialty Start Date End Date Ceci Billings MD [address] [place] [address] PCP - General Family Medicine 06/02/20 documented as of this encounter
--- OUTSIDE RECORDS SUMMARY | 2025-03-01 15:19 | XMS_ITS | Encounter Summary ---
Author Organization [employer] Address [address] 7t [place] [address] Care Team Providers Care International Flight Attendant Name Role Phone Ceci Billings MD Primary Care Provide r Reason for Visit * Reason Onset Date Comments Med Refill 10/02/2024 Encounter Details Date Type Department Care Team (Late st Contact Info) Description 10/02/2024 Refill [facility] [address] [place] [address] Ceci Billings MD [address] [place] [address] Morbid obesity (CMS/HCC) Social History Tobacco Use [...] Description 03/19/2025 9:00 AM EST Office Visit [facility] [address] [place] [address] Ceci Billings MD [address] [place] [address] documented as of this encounter Visit Diagnoses Diagnosis Morbid obesity (CMS/HCC) (HCC) Morbid obesity documented in this encounter Additional Health Concerns Assessment Noted Time PHQ-9 Depression Total Score: 0 09/08/19 9:03 AM EDT documented as of this encounter Care Teams International Flight Attendant Relationship Specialty Start Date End Date Ceci Billings MD [address] [place] [address] [phone] PCP - General Family Medicine 06/02/20 documented as of this encounter
--- OUTSIDE RECORDS SUMMARY | 2025-03-01 15:19 | XMS_ITS | Encounter Summary ---
Author Organization [employer] Address [address] [place] [address] 7t [place] [address] Care Team Providers Care Car Trimmer Name Role Phone Ceci Billings MD Primary Care Provide r Reason for Visit * Reason Comments Med Refill Encounter Details Date Type Department Care Team (Late Contact Info) Description 12/02/2022 Refill [facility] [address] [place] [address] Name, MD Yaniv [address] [place] [address] Insomnia, unspecified type Social History Tobacco Use [...] Upcoming Encounters Date Type Department Care Team ([facility] Contact Info) Description 03/19/2025 9:00 AM EST Office Visit [facility] [address] [place] [address] Ceci Billings MD [address] [place] [address] documented as of this encounter Visit Diagnoses Diagnosis Insomnia, unspecified type documented in this encounter Additional Health Concerns Assessment Noted Time PHQ-9 Depression Total Score: 0 08/07/19 23 9:07 AM EDT documented as of this encounter Care Teams Car Trimmer Relationship Specialty Start Date End Date Ceci Billings MD [address] [place] [address] PCP - General Family Medicine 06/02/20 documented as of this encounter
--- OUTSIDE RECORDS SUMMARY | 2025-03-01 15:19 | XMS_ITS | Patient Health Record ---
Author Organization [facility] Address [address] [place] [address] Care Team Providers Care Recruiter Coordinator Name Role Phone Ceci Blackburn M.D. Primary Care Provider Emerson Schwartz [phone] Allergies Allergen (clinical drug ingredient) Drug/Non Drug Allergy documented on EMR Reaction Allergy Type Onset Date Status vancomycin Vancomycin HCl Unknown Drug Allergy A ctive ciprofloxacin cipro (uncoded) Unknown Allergy Active Results Component Value Reference Range Notes Complete Blood Count Auto Di ff Reviewed date:04/09/2024 10:38:42 PM Interpretation: Performing Lab:[facility], [address] [place] [place] [phone] Notes/Report: White Blood Count 5.2 4.8-10.8 X10*3/uL [...] Panel Reviewed date:04/04/2024 01:40:57 PM Interpretation: Performing Lab:[address] [phone] Notes/Report: Bilirubin Total 0.2 0.0-1.0 mg/dL Bilirubin Direct < 0.2 0.0-0.5 mg/dL Aspartate Amino Transferase 22 5-31 U/L Alanine Aminotransferase 34 0-31 U/L Total Protein 7.2 6.5-8.0 g/dL Albumin Level 3.7 3.5-5.0 g/dL Alkaline Phosphatase 71 39-117 U/L Dakota AVINA Reviewed date:06/05/2024 05:15:56 PM Interpretation: Performing Lab:[address] [phone] Notes/Report: Dakota AVINA SEE NOTE SEE SCA [...] 400 MG Oral; Duration: 30 Days Active Aznwssgpdq-QAIC-Bomk eine 50-325-40 MG TAKE 1 TO 2 [...] She does not smoke nor use a la significant amounts of alcohol. She does not smoke nor use a la significant amounts of alcohol. She does not smoke nor use a la significant amounts of alcohol. She does not smoke nor use a la significant amounts of alcohol. She does not smoke nor use a la significant amounts of alcohol. She does not smoke nor use a la significant amounts of alcohol. She does not smoke nor use a la significant amounts of alcohol. She does not smoke nor use a la significant amounts of alcohol. She does not [...] Status Risk Notes Problem Colon cancer screening (833957857) Colon cancer screening (Z12.11) Active confirmed Problem Irritable bowel syndrome (53682620) Irritable bowel syndrome (K58.9) Active confirmed Problem Constipation (34261228) Constipation (K59.00) Active confirmed Problem Crohn's disease of small AND large intestines (05721918) Crohn's disease of both small and large intestine without complication (K50.80) Active confirmed Problem Nausea (397772575) Nausea (R11.0) Active confir med Problem Therapeutic drug monitoring, quantitative (regime/therapy) (20547227) Encounter for therapeutic drug level monitoring (Z51.81) Active confirmed Problem Dysphagia (45043314) Dysphagia (R13.10) Active confirmed Problem Crohn's disease of small AND large intestines (30015322) Crohns disease of both small and large intestine without complication (K50.80) Active confirmed Problem Gastroesophageal reflux disease (746095532) Gastroesophageal reflux disease, esophagitis presence not specified (K21.9) Active confirmed Problem Chronic gastritis (8707854) Chronic gastritis (K29.50) Active confirmed Problem Diarrhea (35730216) Diarrhea, unspecified type (R19.7) Active confirmed Problem Crohn's disease of small AND large intestines (96701311) Crohn''s disease of both small and large intestine without complication (K50.80) Active confirmed Problem Erythematous ski n nodule (R22.9) Active confirmed Problem Vaginal candidiasis (33087017) Vaginal candidiasis (B37.3) Active confirmed Problem Drug monitoring done (645397523) Encounter for therapeutic drug monitoring (Z51.81) Active confirmed Problem Gastroesophageal reflux disease (disorder) (131002759) Chronic GERD (K21.9) Active confirmed Vital Signs Temperature 97.2 degrees Fahrenheit 01/09/2025 Blood pressure diastolic 01 mm Hg 01/09/2025 Height 65.5 in 01/09/2025 Blood pressure systolic 001 mm Hg 01/09/2025 Weight 254.2 lbs 01/09/2025 BMI 41.65 kg/m2 01/09/2025 Encounters Encounter Location Date Provider Diagnosis [facility] [address] [place] [phone] 06/05/2024 Emerson Canaels Crohn's disease of both small and large intestine without complication K50.80 ; Irritable bowel syndrome K58.9 ; Chronic GERD K21.9 and Vaginal candidiasis B37.3 [facility] [address] [place] [phone] 01/09/2025 Emerson Canales Crohns disease of jaquelin th small and large intestine without complication K50.80 and Constipation K59.00 [facility] [address] [place] [phone] 05/01/2024 Emerson Canales [facility] [address] [place] [phone] 06/05/2024 Emerson Canales [facility] [address] [place] [phone] 06/14/2024 Emerson Canales [facility] [address] [place] [phone] 06/22/2024 Emerson Canales [facility] [address] [place] [address] 10/24/2024 Emerson Canales Assessments Encounter Date Diagnosis [...] regimen including MiraLAX, fiber supplement, and another jygo-oya-kkewvfx stool softener such as Colace. I advised [...] regimen including MiraLAX, fiber supplement, and another gjdc-btq-zzakbox stool softener such as Colace. I advised [...] PROFILE 07/10/2020 LIVER PROFILE 08/13/2021 LIVER PROFILE 02/03/2024 LIVER PROFILE 01/24/2018 LIVER PROFILE 07/08/2013 LIVER PROFILE 12/11/2017 LIVER PROFILE 11/03/2015 LIVER PROFILE 07/10/2020 LIVER PROFILE 07/15/2016 LIVER PROFILE 05/23/2019 LIVER PROFILE 07/11/2017 LIVER PROFILE 07/12/2016 LIVER PROFILE 04/01/2015 LIVER PROFILE 01/08/2021 LIVER PROFILE 10/17/2018 IRON + IBC (FE) 08/13/2021 CRP 01/08/2021 [...] METABOLITES (TPMT) 01/24/2018 PROMETHEUS THIOPURINE METABOLITES (TPMT) 07/11/2017 PROMETHEUS THIOPURINE METABOLITES (TPMT) 07/12/2016 PROMETHEUS THIOPURINE [...] 09:10:00 AM, [address], [address], [place], [address], Insurance Providers Payer Name Payer Address Payer Phone Subscriber Number Group Number Insured Name Patient Relationship to Insured Coverage Start Date Coverage End Date MEDICARE [place] [address] [place] [address] [id number] STEPHIE DORSEY Self - patient is the insured MEDICAID OF [employer] [address] [place] [id number] STEPHIE DORSEY Self - patient is the insured Medical (General) History Medical History History ICD Code Colonoscopy 07-07-2012 Crohn's colitis-diagnosed in 2000- colonoscopy in 02/2009 at [facility] with diffuse colitis/ileitis-has been treated with Remicade, Humira, and azathioprine in the past at [facility]- Stephie reports that the mesalamines and azathioprine seem to exacerbate her GI symptoms with gas and cramps- however, at those time she is usually having active Crohn's disease symptoms as well- -she was hospitalized at [facility] in 06/2013 for a flareup of the [...] 01/2019 for the Crohn's and psoriasis Denies PR,DM,CVA,Lung disease,renal dise ase Anemia- sees Dr. Pulido/Dr. [...]
--- OUTSIDE RECORDS SUMMARY | 2025-03-01 15:19 | XMS_ITS | Encounter Summary ---
Author Organization [employer] Address [address] [place] [address] Care Team Providers Care Inhalation Therapy Aide Name Role Phone Ceci Billings MD Primary Care Provide r Reason for Visit * Reason Comments Med Refill Encounter Details Date Type Department Care Team (Late st Contact Info) Description 06/22/[address] [facility] MEDICINE [address] [place] [address] Ceci Billings MD [address] [place] [address] Migraine without aura, not refractory Social History [...] 9:00 AM EST Office Visit [facility] MEDICINE [address] [place] [address] Ceci Billings MD [address] [place] [address] documented as of this encounter Visit Diagnoses Diagnosis Migraine without aura, not refractory documented in this encounter Additional Health Concerns Assessment Noted Time PHQ-9 Depression Total Score: 0 10/05/19 24 9:33 AM EDT documented as of this encounter Care Teams Inhalation Therapy Aide Relationship Specialty Start Date End Date Ceci Billings MD [address] [place] [address] [phone] PCP - General Family Medicine 06/02/20 documented as of this encounter
--- OUTSIDE RECORDS SUMMARY | 2025-03-01 15:19 | XMS_ITS | Encounter Summary ---
Author Organization [employer] Address [address] [place] [address] Care Team Providers Care Diet Aid Name Role Phone Ceci Billings MD Primary Care Provide r Reason for Visit * Reason Onset Date Comments Medication Question 03/12/2024 Encounter Details Date Type Department Care Team ([facility] Contact Info) Description 03/12/2024 Telephone [facility] [address] [place] [address] Ceci Billings MD [address] [place] [address] Medication Question Social History Tobacco Use Types [...] questions on med PA . Callback number [phone] documented in this encounter Plan of Treatment Upcoming Encounters Date Type Department Care Team (Late st Contact Info) Description 03/19/2025 9:00 AM EST Office Visit [facility] [address] [place] [address] Ceci Billings MD [address] [place], [place] [phone] documented as of this encounter Visit Diagnoses Not on filedocumented in this encounter Additional Health Concerns Assessment Noted Time PHQ-9 Depression Total Score: 0 10/05/19 24 9:33 AM EDT documented as of this encounter Care Teams Diet Aid Relationship Specialty Start Date End Date Ceci Billings MD [address] [place] [address] PCP - General Family Medicine 06/02/20 documented as of this encounter
--- OUTSIDE RECORDS SUMMARY | 2025-03-01 15:19 | XMS_ITS | Clinical Summary ---
Author Organization [employer] Address [address] [place] [address] 7[address] [place] [address] Care Team Providers Care Airline Ticket Agent Name Role Phone Ceci Billings MD Primary [...] to 20 mmHg, continue to follow-up with energy advisor Mild persistent asthma 03/01/2016 Osteopenia 03/01/2016 Allergic [...] Department Care Team Description 01/25/2025 Orders Only [facility] External Provider, [facility] 01/04/2025 Telephone [facility] [address] [place] [address] Ceci Billings MD telephone call 12/28/2024 Telephone [facility] [address] [place] [address] Ceci Billings MD Prior Authorization 12/25/[address] [address] Ceci Billings MD 12/25/2024 Orders Only [facility] [address] [place] [address] Ceci Billings MD 12/20/2024 11:15 AM EDT Office Visit [address] [address] Ceci Billings MD Obstructive sleep apnea syndrome (Primary Dx); Lumbar radiculopathy, chronic; Moderate persistent asthma, unspecified whether complicated; Morbid obesity ([facility]); Chronic hip pain, bilateral; Venous insufficiency; BMI 40.0-44.9, adult ([facility]) 12/20/2024 Telephone [facility] [address] [place] [phone] Ceci Billings MD 12/20/[address] [address] Ceci Billings MD Durable Medical Equipment (DME RX Compression Stockings(L&C)) 12/20/2024 Travel 12/19/2024 Travel 12/19/[address] [address] Ceci Billings MD chart prep 12/13/2024 Refill [facility] [address] [place] [address] Ceci Billings MD Crohn's disease of both small and large intestine without complication ([facility]) 12/13/2024 Refill [facility] [address] [place] [address] Ceci Billings MD Neuropathy 12/04/[address] [address] Ceci Billings MD Appointment Request from Last [...] Description 03/19/2025 9:00 AM EST Office Visit [facility] [address] [place], [place] [phone] Ceci Billings MD [address] [place] [address] Health Maintenance Due Date Last Done Comments [...] AM EDT) 01/25/2025 9:01 AM EDT Narrative [facility] IMAGING - 01/25/2025 10:15 AM EDT [address] [address] Ultrasound Report Signed Patient: Windy Mcfarlane MR# : [id number] : 1975 Acct:[id number] Age/Sex: 49 / F ADM Date: 01/25/25 Loc: HO.US Attending Dr: Elvia Winslow DIABETES NURSE-C Ordering Physician: Elvia Winslow Date of Service: 01/25/25 Procedure(s): US venous duplex LE BI Accession Number(s): [id number] cc: Ceci Billings MD; Elvia Winslow Reason [...] OV> 01/25/25 1012 DD/ 09 TD/TT: 01/25/25926 Prosthetic Makeup Designer: Procedure Note Donotuseinterpreter, Image - 01/25/2025 [place] [address] Ultrasound Report Signed Patient: Gabino ChowdhuryWindy# : [id number] : 1975Acct:[id number] Age/Sex: 49 / FADM Date: 01/25/25 Loc: HO.US Attending Dr: Elvia MIRAMONTES Ordering Physician: Elvia Winslow Date of Service: 01/25/25 Procedure(s): US venous duplex LE BI Accession Number(s): [id number] cc: Ceci Billings MD; Elvia Winslow Reason [...] OV> 01/25/25 1012 DD/ 0901 TD/TT: 01/25/25926 Prosthetic Makeup Designer: [facility] External Provider CV VASC ULAR PROCEDURES Final Result [facility] [address] [place] [address] * Referral to Orthopaedic Surgery (12/11/2024) us Yaniv Pelaez MD OUTPATIENT REFERRAL ORDERABLES F inal Result * Lipid Panel, Standard (08/07/2024 2:25 PM EDT) Triglycerides 63 <150 mg/dL [facility] Comment:Desirable Triglyceri de: less than 150 mg/dLBorderline High Triglyceride 150-199 mg/dLHigh Triglyceride: 200-499 mg/dLVery High Triglyceride: greater than or equal to 5OO mg/dL Cholesterol 154 <200 mg/dL [facility] Comment:Desirable Cholestero l: less than 200 mg/dLBorderline High Cholesterol: 200-239 mg/dLHigh Cholesterol: greater than 239 mg/dL LDL Cholesterol Calculated 92 <100 mg/dL [facility] Comment:Desirable LDL: less than 100 mg/dLNear Optimal/Above Optimal LDL: 110- 129 mg/dLBorderline High LDL: 130-159 mg/dLHigh LDL: 160-189 mg/dLVery High LDL: greater than or equal to 190 mg/dL HDL Cholesterol 50 >40 mg/dL [facility] Comment:Desirable HDL: great er than 40 mg/dL Note: This HDL assay may give artificially low results in patients with liver disease. Blood Venous blood specimen / Unknown 08/07/2024 2:25 PM EDT 08/07/2024 4:10 PM EDT us Ceci Peacock MD LAB BLOOD ORDERABLES Final Result Performing Organization Address City/[facility]/ZIP Co de Phone Number [facility] [address] [place] [address] [phone] * BI Mammogram Screening Tomosynthesis Bilateral (07/12/2024 1:45 PM EDT) Anatomical Region Laterality Modality Breast Bilateral Mammography 07/12/2024 1:45 PM EDT Narrative 07/20/2024 4:18 PM EDT [facility] [address] [place] [address] Mammography Report Signed Patient: Windy Mcfarlane MR# : [id number] : 1975 Acct:[id number] Age/Sex: 48 / F ADM Date: 07/12/24 Loc: HO.MAMMO Attending Dr: Ceci Peacock MD Ordering Physician: Ceci Billings MD Results: 2Benign Findings Date of Service: 07/12/24 Follow Up: 1 Year From Orig inal Mammogram Procedure(s): MM tomosynthesis screening BI Accession Number(s): [id number] cc: Ceci Billings MD EXAMINATION: MM SCREENING [...] 07/20/24 1614 DD/ 1345 TD/TT: 07/12/24 1401 Prosthetic Makeup Designer: Procedure Note Donotuseinterpreter, Image - 07/20/2024 [facility] [address] [place] [address] [place] [address] Mammography Report Signed Patient: Windy McfarlaneMR# : [id number] : 1975Acct:[id number] Age/Sex: 48 / FADM Date: 07/12/24 Loc: HO.MAMMO Attending Dr: Ceci Peacock MD Ordering Physician: Ceci Billings MDResults: 2Benign Findings Date of Service: 07/12/24Follow Up: 1 Year From Orig ina Mammogram Procedure(s): MM tomosynthesis screening BI Accession Number(s): [id number] cc: Ceci Billings MD EXAMINATION: MM SCREENING [...] 07/20/24 1614 DD/ 1345 TD/TT: 07/12/24 1401 Prosthetic Makeup Designer: Ceci Peacock MD IMG BI PROCEDURES Fin al Result * HM PAP/HPV (07/03/2024 11:57 AM EDT) us Historical Provider HEALTH MAINTENANCE Final Result * Hm Colonoscopy (08/23/2023 11:53 AM EDT) us Historical Provider HEALTH MAINTENANCE Final Result * HPV E6/E7 RFLX JESSICA 16 18/45 (11/09/2021 2:40 PM EDT) HPV mRNA E6/E7 rflx Not Detected Not Detected [facility] Comment: Methodology: Innovation Manager-Mediated Amplification This assay detects E6/E7 viral messenger RNA (mRNA) from 14 high-risk HPV types (16,18,31,33,35,39,45,51,52,56,58,59,66,68). Cervical sources are required for HPV testing. If a vaginal source from a patient who has had a total hysterectomy with removal of cervix was submitted, please contact the testing laboratory for alternative testing options. For additional information, please refer to http://education.[employer]/faq/LED995e8 (This link if provided for information/ educational purposes only.) THIS TEST WAS PERFORMED AT: [facility] [address] [place] [address] [address],[place] [address] TIN DICKEY MD 11/09/2021 2:40 PM EDT Kylee Rice HISTORICAL/NON ORDERABLE LABS Fi nal Result Performing Organization Address City/State/[facility] Co de Phone Number [facility] Anywhere [address] from Last 3 Months or Most Recently Relevant to Health Maintenance Insurance MEDICARE [facility] STANDARD Care Teams Airline Ticket Agent Relationship Specialty Start Date End Date Ceci Billings MD [address] [place] [phone] PCP - General Family Medicine 06/02/20
--- OUTSIDE RECORDS SUMMARY | 2025-03-01 15:19 | XMS_ITS | Encounter Summary ---
Author Organization [employer] Address [address] 7[address] [place] [address] Care Team Providers Care Title Search Manager Name Role Phone Ceci Billings MD Primary Care Provide r Encounter Details Date Type Department Care Team ([facility] Contact Info) Description 04/23/2024 Orders Only [facility] [address] [place] [address] Ceci Billings MD [address] [place] [address] Social History Tobacco Use Types Packs/Day Years [...] Description 03/19/2025 9:00 AM EST Office Visit [facility] [address] [place] [address] Ceci Billings MD [address] [place] [address] documented as of this encounter Visit Diagnoses Not on filedocumented in this encounter Additional Health Concerns Assessment Noted Time PHQ-9 Depression Total Score: 0 10/05/19 24 9:33 AM EDT documented as of this encounter Care Teams Title Search Manager Relationship Specialty Start Date End Date Ceci Billings MD [address] [place] [phone] PCP - General Family Medicine 06/02/20 documented as of this encounter
--- OUTSIDE RECORDS SUMMARY | 2025-03-01 15:19 | XMS_ITS | Encounter Summary ---
Author Organization [employer] Address [address] [place] [address] 7t [place] [address] Care Team Providers Care Turnstile Collector Name Role Phone Ceci Billings MD Primary Care Provide r Encounter Details Date Type Department Care Team (Late Contact Info) Description 05/27/2022 Telephone [facility] [address] [place] [phone] Ceci Billings MD [address] [place] [phone] Social History Tobacco Use Types Packs/Day Years [...] 03/19/2025 9:00 AM EST Office Visit [facility] [address] [place] [phone] Ceci Billings MD [address] [place], [place] [phone] documented as of this encounter Visit Diagnoses Not on filedocumented in this encounter Care Teams Turnstile Collector Relationship Specialty Start Date End Date Ceci Billings MD [address] [place] [address] PCP - General Family Medicine 06/02/20 documented as of this encounter
--- OUTSIDE RECORDS SUMMARY | 2025-03-01 15:19 | XMS_ITS | Encounter Summary ---
Author Organization [employer] Address [address] [facility] [address] [place] [address] Care Team Providers Care Pipe Installer Name Role Phone Ceci Billings MD Primary Care Provide r Reason for Visit * Reason Comments Med Refill Encounter Details Date Type Department Care Team ([facility] Contact Info) Description 04/30/2022 Refill [facility] [address] [place] [address] Jesús Vale MD [address] [place] [address] Influenza-like illness Social History Tobacco Use Types [...] Upcoming Encounters Date Type Department Care Team ([facility] Contact Info) Description 03/19/2025 9:00 AM EST Office Visit [facility] [address] [place] [address] Ceci Billings MD [address] [place], [place] [phone] documented as of this encounter Visit Diagnoses Diagnosis Influenza-like illness documented in this encounter Care Teams Pipe Installer Relationship Specialty Start Date End Date Ceci Billings MD [address] [place], [place] [phone] PCP - General Family Medicine 06/02/20 documented as of this encounter
--- OUTSIDE RECORDS SUMMARY | 2025-03-01 15:19 | XMS_ITS | Encounter Summary ---
Author Organization [employer] Address [address] [place] [address] Care Team Providers Care Post Secondary Professional Name Role Phone Ceci Billings MD Primary Care Provide r Encounter Details Date Type Department Care Team ([facility] Contact Info) Description 10/16/2024 Telephone [facility] [address] [place] [address] Ceci Billings MD [address] [place] [address] Social History Tobacco Use Types Packs/Day Years [...] 9:00 AM EST Office Visit [facility] [address] [place] [address] Ceci Billings MD [address] [place] [address] documented as of this encounter Visit Diagnoses Not on filedocumented in this encounter Additional Health Concerns Assessment Noted Time PHQ-9 Depression Total Score: 0 09/08/19 9:03 AM EDT documented as of this encounter Care Teams Post Secondary Professional Relationship Specialty Start Date End Date Ceci Billings MD [address] [place] [phone] PCP - General Family Medicine 06/02/20 documented as of this encounter
== END 2025-03-01 13:23 | disposition home or self-care (01) ==
LOC: HO.PMC 13:09
PROVIDERS: PCP Internal Medicine; Visit Provider Registered Nurse Emergency
DX: M53.3 Sacrococcygeal disorders, not elsewhere classified (principal); M17.0 Bilateral primary osteoarthritis of knee
CPT/HCPCS: 99213; G2211

== ENCOUNTER → 2025-03-01 13:09 | Outpatient (BNVA) | payer MEDICARE, MEDICAID, SELFPAY | PROVIDERS: PCP Internal Medicine; Visit Provider Registered Nurse Emergency | DX: M17.0 Bilateral primary osteoarthritis of knee (principal); M53.3 Sacrococcygeal disorders, not elsewhere classified | CPT/HCPCS: 99212 ==

== ENCOUNTER 2025-03-19 13:25 | Outpatient (AMB) | payer MEDICARE, MEDICAID, SELFPAY ==
--- OUTSIDE RECORDS SUMMARY | 2024-02-07 04:50 | XMS_ITS ---
Author Organization [facility] Address [address] [facility] [address] [place] [phone] Care Team Providers Care Bonderizer Name Role Phone Ceci Blackburn M.D. Primary Care Provider Emerson Schwartz [phone] REASON FOR VISIT Patient presents today for GERD, CROHN'S. Encounters Encounter Location Date Provider Diagnosis [facility] [address] [facility] [address] [place] [phone] 02/07/2024 Emerson Canales Plan Of Treatment Next Appt Details Provider Name:Emerson Canales , 07/30/2025 09:10:00 AM, [address] [place] [address], Suite [facility], [place], [address], Progress Notes * STEPHIE DORSEYDOB: [birth year] (49 yo F)Acc No.[id number]:02/07/2024 Progress Notes Patient: Halley MACKSarai STEPHIE Provider: Olu Canales MD :1975 A ge:48 Y S ex:Female Date:02/07/2024 Address:[address] [place], [place] Pcp:Ceci Blackburn M.D. Subjective: * Chief Complaints: * P atient presents today for GERD, CROHN'S. * The named appointment provid er may or may not be the originator of this progress note, and it is not deemed complete until electronically signed by the appointment provider. Sign off status: Pending * Provider: Olu Canales MD Date: 1 Generated for Arpit ribeiro/Enmanuel/Daniel on: 05/19/2024 09:07 AM EST
--- OUTSIDE RECORDS SUMMARY | 2025-03-19 09:00 | XMS_ITS | Encounter Summary ---
Author Organization [employer] Address [address] [place] [address] Care Team Providers Care Environmental Services Tech Name Role Phone Ceci Billings MD Primary Care Provide r Encounter Details Date Type Department Care Team (Latest Contact Info) Description 03/19/2025 9:00 AM EST Office Visit [facility]INE [address] [place] [address] Ceci Billings MD [address] [place] [address] Venous insufficiency (Primary Dx); Dietary counseling; Exercise counseling; Class 3 severe obesity due to excess calories with serious comorbidity and body mass index (BMI) of 40.0 to 44.9 in adult (HCC); Lumbar radiculopathy, chronic; Moderate persistent asthma, unspecified whether complicated Social History Tobacco Use Types Packs/Day Years Used Date Smoking Tobacco: Never Passive Smoke Exposure: Never Smokeless Tobacco: Never Alcohol Use Standard Drinks/Week Comments Never 0 (1 standard drink = 0.6 oz pur e alcohol) Depression Answer Date Recorded Patient Health Questionnaire-9 Score 10 03/19/2025 Patient Health Questionnaire-9 Score 10 03/19/2025 Last PHQ-9: Questionnaire Data Not on file 1 05/19/2024 Housing Stability Answer Date Recorded What is [...] Date Recorded Patient Health Questionnaire-2 Score 2 03/19/2025 Internet Access Answer Date Recorded Internet Access [...] Sign Reading Time Taken Comments Blood Pressure 106/68 03/19/2025 9:13 AM EST Pulse 81 03/19/2025 9:13 AM EST Temperature 33.4 C (92.1 F) 03/19/2025 9:13 AM EST Respiratory Rate 17 03/19/2025 9:13 AM EST Oxygen Saturation 98% 03/19/2025 9:13 AM EST Inhaled Oxygen Concentration - - Weight 112 kg (246 lb) 03/19/2025 9:13 AM EST Height 165.1 cm (5' 5 ) 03/19/2025 9:13 AM EST Body Mass Index 40.94 03/19/2025 9:13 AM EST documented in this encounter Functional Status * Over the past 2 weeks, how often have you been bothered by any of the following problems? Question Answer Date of Assessment Author Patient Health Questionnaire-2 Score 2 02/24 9:44 AM EST Jyoti Howard [place] * Little interest or pleasure in doing things Answer Date of Assessment Author Several days 03/19/2025 9:44 AM Charly Cavanaugh ra, [place] * Feeling down, depressed, or hopeless Answer Date of Assessment Author Several days 03/19/2025 9:44 AM Charly Cavanaugh ra, [place] * Trouble falling or staying asleep, or sleeping too much Answer Date of Assessment Author Nearly every day 03/19/2025 9:44 AM Aicha Cavanaugh [place] * Feeling tired or having little energy Answer Date of Assessment Author More than half the days 03/19/2025 9:44 AM Jyoti Huggins [place] * Poor appetite or overeating Answer Date of Assessment Author Several days 03/19/2025 9:44 AM Charly Cavanaugh ra, [place] * Feeling bad about yourself - or that you are a failure or have let yourself or your family down Answer Date of Assessment Author Not at all 03/19/2025 9:44 AM Charly Cavanaugh ra, [place] * Trouble concentrating on things, such as reading the newspaper or watching television Answer Date of Assessment Author More than half the days 03/19/2025 9:44 AM Jyoti Huggins [place] * Moving or speaking so slowly that other people could have noticed? Or the opposite - being so fidgety or restless that you have been moving around a lot more than usual. Answer Date of Assessment Author Not at all 03/19/2025 9:44 AM Charly Cavanaugh ra, [place] * Thoughts that you would be better off or hurting yourself in some way Answer Date of Assessment Author Not at all 03/19/2025 9:44 AM Charly Cavanaugh ra, [place] * Patient Health Questionnaire-9 Score Answer Date of Assessment Author 10 03/19/2025 9:44 AM Charly Cavanaugh ra, [place] * Over the last 2 weeks, how often have you been bothered by any of the following problems? Question Answer Date of Assessment Author Feeling nervous, anxious, or on edge 2 02/24 9:43 AM Jyoti Cavanaugh [place] Not being able to stop or co ntrol worrying 2 03/19/2025 9:43 AM Jyoti Cavanaugh MA Worrying too much about diff erent things 1 03/19/2025 9:43 AM Jyoti Cavanaugh [place] Trouble relaxing 2 03/19/2025 9:43 AM Jyoti Huggins MA Being so restless that it is hard to sit still 1 03/19/2025 9:43 AM Jyoti Cavanaugh MA Becoming easily annoyed or irritable 1 02/24 9:43 AM Jyoti Cavanaugh MA Feeling afraid as if somethi ng awful might happen 2 03/19/2025 9:43 AM Jyoti Cavanaugh MA JOSE-7 Total Score 11 03/19/2025 9:43 AM Jyoti Cavanaugh MA documented as of this encounter Progress Notes * Ceci Peacock MD - 03/19/2025 9:00 AM EST SUBJECTIVE: Windy Chowdhury is a 49 y.o. year old female who presents for Chronic Disease Management . Windy Chowdhury, 49 years Low Back Pain and Sciatic Nerve Pain - Undergoing pain management for low back pain and sciatic nerve pain - Approved for injection treatment - Plan to address right knee first due to vein issues in left knee Knee Pain - Right knee to be treated first due to vascular concerns with left leg Blood Pressure Variability - Home blood pressure monitoring with variable readings, some days low, some days normal - Reports dizziness and mild headache when blood pressure is low (70s/50s) - History of consistently low blood pressure readings (e.g., 90/60) without symptoms - Propranolol discontinued, reports palpitations since discontinuation Weight Management - Currently using 15 mg of zepbound weekly - Following with a doctor for weight reduction - Insurance preauthorization for medication denied; seeking direct purchase from mobile sales assistant Asthma - Asthma exacerbation last week triggered by cold and flu-like illness - Using prescribed inhaler with improvement - Under care of pulmonology specialist Lower Extremity Edema - Reports significant swelling of feet - Using compression stockings, but experiencing discomfort and rolling at thigh - Elevates legs as part of management Vitamin D Deficiency - Last labs in July 2024 showed slightly low vitamin D - Currently taking vitamin D supplements Misc - Denies intent to receive influenza vaccination Social History Social History Narrative Not on file Problem List[1] Acute urinary tract infection Allergic rhinitis Anemia Anxiety Cellulitis of lower limb Chronic low back pain Crohn's disease of small and large intestines ([facility]) Dizziness Dry eyes Erythema nodosum Chronic sinusitis Fibromyositis Insomnia Migraine without aura, not refractory Mild intermittent asthma Mild persistent asthma Moderate persistent asthma Morbid obesity (CMS/HCC) ([facility]) Severe obesity (CMS/HCC) ([facility]) Multiple joint pain Obstructive sleep apnea syndrome Osteopenia Hand pain Pain in elbow Palpitations Psoriasis Subconjunctival hemorrhage UTI symptoms Vitamin D deficiency Seasonal allergic rhinitis Heartburn Neck pain Varicose veins Neuropathy Diarrhea Lumbar radiculopathy, chronic Left leg pain Plantar fasciitis, bilateral Lipoma Contact dermatitis Varicose veins of leg with pain, bilateral Other constipation Fibromyalgia Metrorrhagia Chronic hip pain, bilateral Encounter for preventive care Venous insufficiency Family History[2] Review of Systems Constitutional: Negative. HENT: Negative. Respiratory: Negative. Cardiovascular: Positive for palpitations and leg swelling. Negative for chest pain. Musculoskeletal: Positive for arthralgias, back pain and myalgias. OBJECTIVE: Vitals: 03/19/25 0913 BP: 106/68 BP Location: Left arm Patient Position: Sitting BP Cuff Size: Adult Pulse: 81 Resp: 17 Temp: 92.1 ??F (33.4 ??C) TempSrc: Temporal SpO2: 98% Weight: 246 lb (112 kg) Height: 5' 5 (1.651 m) Physical Exam Constitutional: Appearance: Normal appearance. Cardiovascular: Rate and Rhythm: Normal rate and regular rhythm. Pulmonary: Effort: Pulmonary effort is normal. Abdominal: General: Abdomen is flat. Palpations: Abdomen is soft. Musculoskeletal: Right lower leg: Edema present. Left lower leg: Edema present. Neurological: Mental Status: She is alert. Follow Up: Follow up in about 3 months (around 06/19/2025) for chronic conditions . Medications Ordered Prior to Encounter[3] Problem List Items Addressed This Visit Lumbar radiculopathy, chronic Venous insufficiency - Primary Moderate persistent asthma Other Visit Diagnoses Dietary counseling Exercise counseling Class 3 severe obesity due to excess calories with serious comorbidity and body mass index (BMI) of40.0 to 44.9 in adult ([facility]) Dietary counseling: - Renewed prescription for weight loss medication. Advised to purchase medication directly from themanufacturer if not covered by insurance. Exercise counseling: - Advised to elevate legs and avoid excessive salt intake to help with lower extremity edema. Class 3 severe obesity due to excess calories with serious comorbidity and body mass index (BMI) of40.0 to 44.9 in adult ([facility]): - Class 3 severe obesity with ongoing pharmacologic management for weight reduction. - I will prescribe weight loss medication zepbound (15 mg), patient will contact me back to know where to send prescription she is willing to pay ut of pocket. Lumbar radiculopathy, chronic: - Chronic lumbar radiculopathy under pain management with planned injection therapy. - Continue with pain management and proceed with scheduled injection. Monitor response to therapy. Edema in lower extremities: - Edema in lower extremities, currently managed with compression stockings. - Advised to discuss issues with compression stockings with vascular specialist in April. Continue use of compression stockings as tolerated. Elevate legs and avoid excessive salt intake. Asthma: - Asthma exacerbation following recent upper respiratory infection, currently controlled with inhaler prescribed by [employer] reverse winder. - Continue current inhaler therapy. No additional medication required at this time. This note was drafted using Ambient (AI) technology. The patient/patient's guardian has been informed and has consented to the use of this technology: Yes [1] Patient Active Problem List Diagnosis Acute urinary tract infection Allergic rhinitis Anemia Anxiety Cellulitis of lower limb Chronic low back pain Crohn's disease of small and large intestines ([facility]) Dizziness Dry eyes Erythema nodosum Chronic sinusitis Fibromyositis Insomnia Migraine without aura, not refractory Mild intermittent asthma Mild persistent asthma Moderate persistent asthma Morbid obesity (CMS/HCC) (HCC) Severe obesity (CMS/HCC) ([facility]) Multiple joint pain Obstructive sleep apnea syndrome Osteopenia Hand pain Pain in elbow Palpitations Psoriasis Subconjunctival hemorrhage UTI symptoms Vitamin D deficiency Seasonal allergic rhinitis Heartburn Neck pain Varicose veins Neuropathy Diarrhea Lumbar radiculopathy, chronic Left leg pain Plantar fasciitis, bilateral Lipoma Contact dermatitis Varicose veins of leg with pain, bilateral Other constipation Fibromyalgia Metrorrhagia Chronic hip pain, bilateral Encounter for preventive care Venous insufficiency [2] No family history on file. [3] Current Outpatient Medications on File Prior to Visit Medication Sig Dispense Refill acetaminophen (Tylenol 8 Hour) 650 MG ER tablet TAKE 2 TABLETS(1300 MG) BY MOUTH EVERY 8 HOURS NEEDED FOR MILD PAIN. DO NOT CRUSH, CHEW, OR SPLIT 40 tablet 0 albuterol (Ventolin HFA) 108 (90 Base) MCG/ACT inhaler INHALE 2 PUFFS BY MOUTH THREE TIMES DAILY ASNEEDED 18 g 3 dicyclomine (Bentyl) 20 MG tablet TAKE 1 TABLET BY MOUTH IF NEEDED IN THE MORNING, AT NOON, AND AT BEDTIME 90 tablet 1 docusate sodium (Colace) 100 MG capsule Take [...] tip and replace cap. 16 g12 fluticasone furoate (Arnuity Ellipta) 100 MCG/ACT inhaler Inhale 1 puff Once per day. Rinse mouth with water after use to reduce aftertaste and incidence of candidiasis. Do not swallow. 1 each 11 gabapentin (Neurontin) 600 MG tablet TAKE 1 TABLET(600 MG) BY MOUTH THREE TIMES DAILY 90 tablet 2 propranolol (Inderal) 20 MG tablet TAKE 1 TABLET(20 MG) BY MOUTH EVERY DAY 90 tablet 1 senna (Senokot) 8.6 MG tablet Take 2 tablets (17.2 mg) by mouth 2 times daily. 360 tablet 1 Tirzepatide-Weight Management (Zepbound) 10 MG/0.5ML solution auto-injector Inject 0.5 mL (10 mg) under the skin 1 (one) time per week. 2 mL 1 Tirzepatide-Weight Management (Zepbound) 12.5 MG/0.5ML solution auto-injector Inject 0.5 mL (12.5 mg) under the skin 1 (one) time per week. INJECT ONE PEN (=12.5 MG) SUBCUTANEOUSLY ONCE A WEEK 2 mL 0 triamcinolone (Kenalog) 0.1 % cream Apply topically if needed in the morning and at bedtime (pain and swelling). 30 g 0 zolpidem (Ambien) 10 MG tablet TAKE 1 TABLET BY MOUTH AT BEDTIME 30 tablet 1 [DISCONTINUED] gabapentin (Neurontin) 600 MG tablet Take 1 tablet (600 mg) by mouth 3 times daily. 90 tablet 2 No current facility-administered medications on file prior to visit. documented in this encounter Plan of Treatment Upcoming Encounters Date Type Department Care Team (Late st Contact Info) Description 06/19/2025 9:00 AM EST Office Visit [facility] MEDICINE [address] [place] [address] Ceci Billings MD [address] [place] [address] documented as of this encounter Visit Diagnoses Diagnosis Venous insufficiency- Primary Unspecified venous (peripheral) insufficiency Dietary counseling Dietary surveillance and counseling Exercise counseling Class 3 severe obesity due to excess calories with serious comorbidity and body mass index (BMI) of 40.0 to 44.9 in adult (HCC) Lumbar radiculopathy, chronic Moderate persistent asthma, unspecified whether complicated documented in this encounter Additional Health Concerns Assessment Noted Time PHQ-9 Depression Total Score: 10 025 9:44 AM EST documented as of this encounter Care Teams Environmental Services Tech Relationship Specialty Start Date End Date Ceci Billings MD [address] [place] [id number] PCP - General Family Medicine 06/02/20 documented as of this encounter
[2025-03-19 13:28] VITALS: BP 120/82; PULSE 62; BMI 36.9
--- NOTE | 2025-03-19 13:28 | A.OFFVIS_ITS ---
Vital Signs 03/19/25 13:28 Height 5 ft 8 in Weight 242 lb 8.136 oz BMI 36.9 BP 120/82 Blood Pressure Location Lt brachial Position Sitting Pulse 62 Intake Visit Reasons: 3m follow up Intake Note: 3 month follow-up having palpitations since stopping propanlol but not bad Portrait Consultant Required: No Allergies ciprofloxacin (From CIPRO) Allergy (Severe, Verified 03/01/25 13:11) GI PAIN vancomycin Allergy (Severe, Verified 03/01/25 13:11) Anaphylaxis Medication List - Last Reconciled 03/19/25 by FE Mcmahan albuterol sulfate 2.5 mg inhalation QID PRN albuterol sulfate 90 mcg/actuation 2 puffs PO Q4-6H PRN blood pressure monitor As directed clonazepam 0.5 mg PO DAILY PRN cyclobenzaprine 10 mg PO TID PRN dicyclomine 20 mg PO TID docusate sodium 100 mg PO BID fexofenadine (Amada Allergy) 180 mg PO DAILY fluconazole 150 mg PO Q3D PRN fluticasone furoate 100 mcg/actuation (Arnuity Ellipta) 1 inh inhalation DAILY fluticasone propionate 110 mcg/actuation 110 mcg inhalation BID 30 days gabapentin 600 mg PO TID galcanezumab-gnlm (Emgality Pen) 120 mg subcut QMONTH levonorgestrel (Mirena) 20 mcg intrauterine DAILY montelukast 10 mg PO BEDTIME 30 days nabumetone 500 mg PO BID ondansetron HCl 8 mg PO Q8H PRN pantoprazole 40 mg PO DAILY polyethylene glycol 3350 grams PO psyllium husk (Reguloid (psyllium husk)) 0.8 grams PO BID sertraline 100 mg PO DAILY ustekinumab (Stelara) 90 mg subcut Q8W zolpidem (Ambien) 10 mg PO BEDTIME HPI HPI 3m follow up: Details: Windy is a 49-year-old male past medical history of morbid obesity, sleep apnea, palpitations, brief SVE on Holter monitor who recently wore cardiac event monitor and now presents for follow-up. Today she reports that she was recently taken off propranolol due to low blood pressure readings. She will still get some heart palpitations where she feels her heart going fast. She has not had to put her face in the cold water to slow her heart down since her last visit here in November. She does not recall having any of the episodes of rapid heartbeat when having the cardiac event monitor on. No lightheadedness, presyncope, syncope, falls. No shortness of breath, chest discomfort, PND, orthopnea or edema. She does only light physical activity at home. She is not consuming any caffeinated beverages and maintains good hydration. [facility] Medical History COVID Somnolence, daytime TANA (obstructive sleep apnea) Allergic rhinitis Bronchial asthma Trigger finger Dysuria Obesity, morbid, BMI 40.0-49.9 Encounter for Papanicolaou smear for cervical cancer screening Asthma Insomnia Crohn's disease Surgical History History of removal of laparoscopic gastric banding device Hx of hand surgery History of carpal tunnel surgery Hx of laparoscopic gastric banding Hx of breast reduction, elective Family History Father HIV (human immunodeficiency virus infection) Mother Hypertension Maternal Grandmother Diabetes mellitus Maternal Grandfather Hypertension Lymphoma Paternal Grandfather No problems noted. 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/ Gender identity: Female Female Reproductive History Menstrual Age of Menarche: 13 Review of Systems Const All systems reviewed & are unremarkable except as noted in HPI and below Denies chills, Denies fatigue, Denies fever(s), Denies frequent falls, Denies weakness, Denies weight gain and Denies weight loss ENT Denies dizziness Card Details: Brief palpitations Denies chest pain, Denies leg edema, Denies lightheadedness, Denies palpitations, Denies dyspnea, Denies dyspnea on exertion, Denies orthopnea and Denies other (loss of consciousness) Resp Denies cough, Denies dyspnea and Denies dyspnea on exertion GI Denies hematochezia and Denies change in stool character Musc Denies abnormal gait, Denies muscle weakness, Denies numbness, Denies radiating pain into limb and Denies tingling Neuro Denies abnormal gait, Denies dizziness, Denies frequent falls, Denies numbness, Denies tingling and Denies weakness Endo Denies fatigue and Denies palpitations Physical Exam Vital Signs: Last Vital Signs Pulse 62 03/19/25 13:28 BP 120/82 03/19/25 13:28 BMI result Body Mass Index 36.9 Const General: cooperative, healthy appearing, comfortable and no acute distress Orientation/consciousness: patient oriented x3 Neck Neck: Yes normal visual inspection Resp Effort & Inspection: normal respiratory effort Auscultation: clear to auscultation bilaterally, no crackles, no rales, no rhonchi and no wheezes Cardio Rate: regular rate Rhythm: regular rhythm Heart sounds: S1 normal heart sound present, S2 normal heart sound present, no gallops, no murmurs and no rubs Neuro General: patient oriented x3 Extrem General: Yes normal to inspection, No no pedal edema and No calf tenderness Psych Appearance: grossly normal Mental Status: mental status grossly normal Speech and movement: Normal speech and movement present Assessment & Plan Assessment & Plan (1) Heart palpitations: Code(s): R00.2 - Palpitations Category: Medical Plan: Reports of intermittent heart palpitations, fast heart rates that can last several minutes, with recent episodes resolving with immersing face in ice water. Her description sounds like supraventricular tachycardia, but no clear documentation seen. She did undergo a Holter monitor on 05/16/2023 which showed sinus rhythm, average heart rate 77, rare brief SVE runs, longest 10 beats. Echocardiogram done 05/16/2023 showed EF 65%, normal valves, left atrium mildly dilated, No regional wall motion abnormality. Cardiac event monitor worn 01/04/2025 to 02/03/2025 showed sinus rhythm with average heart rate 78, occasional PVCs. She reports not having her rapid heartbeat during that time period. Suggested she get a [employer] mobile device so that she can record her rhythm when she is having the rapid heart palpitations. She has been on propranolol for migraines and it was stopped due to low blood pressures. No pl an for medical management at this time. ED care if needed for sustained rapid palpitations. Continue to avoid caffeine, stay well hydrated. ER care for sustained rapid palpitations not relieved by facial ice water submersion. Cardiology office visit 6 months, sooner if needed. (2) PAC (premature atrial contraction): Code(s): I49.1 - Atrial premature depolarization Category: Medical Plan: Short SVE run seen on Holter monitor. Plan Time spent on chart review, documentation, interview and assessment Coding Level of Care Code Est Pt Level 4 (41122) Complex visit Add On G2211 Diagnoses Heart palpitations R00.2 PAC (premature atrial contraction) I49.1 Time Spent (min) 28
--- OUTSIDE RECORDS SUMMARY | 2025-03-19 17:19 | XMS_ITS | Encounter Summary ---
Author Organization [employer] Address [address] [facility] [address] [place] [address] Care Team Providers Care Sales Representative Uniforms Name Role Phone Ceci Billings MD Primary Care Provide r Reason for Visit * Reason Onset Date Comments Chart Prep 03/18/2025 Encounter Details Date Type Department Care Team ([facility] Contact Info) Description 03/18/2025 Telephone [facility] MEDICINE [address] [place] [address] Ceci Billings MD [address] [place] [address] Chart Prep Social History Tobacco Use Types Packs/Day Years [...] encounter Miscellaneous Notes * Telephone Encounter - Rosanne Chan [place] - 03/18/2025 1:18 PM EST Chart Prep Labs: not applicable Images: not applicable Referrals: not applicable Vaccines due: Covid and Flu Screenings: PISQ and HIV Screening, HIV Screening Overdue care gaps: PHQ-9 and JOSE-7 documented in this encounter Plan of Treatment Upcoming Encounters Date Type Department Care Team (Late st Contact Info) Description 06/19/2025 9:00 AM EST Office Visit [facility] MED[facility]INE [address] [place] [address] Ceci Billings MD [address] [place] [address] documented as of this encounter Visit Diagnoses Not on filedocumented in this encounter Additional Health Concerns Assessment Noted Time PHQ-9 Depression Total Score: 4 12/21/19 25 11:24 AM EDT documented as of this encounter Care Teams Sales Representative Uniforms Relationship Specialty Start Date End Date Ceci Billings MD [address] [place] [address] PCP - General Family Medicine 06/02/20 documented as of this encounter
--- OUTSIDE RECORDS SUMMARY | 2025-03-19 17:19 | XMS_ITS | Encounter Summary ---
Author Organization [employer] Address [address] [facility] [address] [place] [address] Care Team Providers Care Erection Shop Supervisor Name Role Phone Ceci Billings MD Primary Care Provide r Reason for Visit * Reason Comments Med Refill Encounter Details Date Type Department Care Team (Late st Contact Info) Description 06/22/2024 Refill [facility] [address] [place] [address] Ceci Billings MD [address] [place] [address] Migraine without aura, not refractory Social History [...] Description 06/19/2025 9:00 AM EST Office Visit [facility] [address] [place] [phone] Ceci Billings MD [address] [place] [id number] documented as of this encounter Visit Diagnoses Diagnosis Migraine without aura, not refractory documented in this encounter Additional Health Concerns Assessment Noted Time PHQ-9 Depression Total Score: 0 10/05/19 24 9:33 AM EDT documented as of this encounter Care Teams Erection Shop Supervisor Relationship Specialty Start Date End Date Ceci Billings MD [address] [place] [phone] PCP - General Family Medicine 06/02/20 documented as of this encounter
--- OUTSIDE RECORDS SUMMARY | 2025-03-19 17:19 | XMS_ITS | Encounter Summary ---
Author Organization [employer] Address [address] 7t [place] [address] Care Team Providers Care Cascade Operator Name Role Phone Ceci Billings MD Primary Care Provide r Encounter Details Date Type Department Care Team (Late st Contact Info) Description 08/15/2024 Orders Only [facility] [address] [place] [address] Provider, MD Chito Social History Tobacco Use [...] Description 06/19/2025 9:00 AM EST Office Visit [facility] MED[facility] [address] [place] [address] Ceci Billings MD [address] [place] [address] documented as of this encounter Procedures Procedure [...] documented as of this encounter Care Teams Cascade Operator Relationship Specialty Start Date End Date Ceci Billings MD [address] [place] [address] PCP - General Family Medicine 06/02/20 documented as of this encounter
--- OUTSIDE RECORDS SUMMARY | 2025-03-19 17:19 | XMS_ITS | Encounter Summary ---
Author Organization [employer] Address [address] [place] [address] 7t [place] [address] Care Team Providers Care Truck Dispatcher Name Role Phone Ceci Billings MD Primary Care Provide r Encounter Details Date Type Department Care Team (Late st Contact Info) Description 05/27/2022 Telephone [facility] [address] [place] [address] Ceci Billings MD [address] [place] [address] [phone] Social History Tobacco Use Types Packs/Day Years [...] Department Care Team (Late Contact Info) Description 06/19/2025 9:00 AM EST Office Visit [facility] [address] [place] [address] Ceci Billings MD [address] [place], [place] [phone] documented as of this encounter Visit Diagnoses Not on filedocumented in this encounter Care Teams Truck Dispatcher Relationship Specialty Start Date End Date Ceci Billings MD [address] [place] [address] PCP - General Family Medicine 06/02/20 documented as of this encounter
--- OUTSIDE RECORDS SUMMARY | 2025-03-19 17:19 | XMS_ITS | Encounter Summary ---
Author Organization [employer] Address [address] 7t [place] [address] Care Team Providers Care Rubber Tire And Tubes Supervisor Name Role Phone Ceci Billings MD Primary Care Provide r Encounter Details Date Type Department Care Team ([facility] Contact Info) Description 10/16/2024 Telephone [facility] MED[facility]INE [address] [place] [address] Ceci Billings MD [address] [place] [address] Social History Tobacco Use Types Packs/Day Years [...] 9:00 AM EST Office Visit [facility]INE [address] [place] [address] Ceci Billings MD [address] [place] [address] documented as of this encounter Visit Diagnoses Not on filedocumented in this encounter Additional Health Concerns Assessment Noted Time PHQ-9 Depression Total Score: 0 09/08/19 25 9:03 AM EDT documented as of this encounter Care Teams [employer] Tire And Tubes Supervisor Relationship Specialty Start Date End Date Ceci Billings MD [address] [place] [phone] PCP - General Family Medicine 06/02/20 documented as of this encounter
--- OUTSIDE RECORDS SUMMARY | 2025-03-19 17:19 | XMS_ITS | Encounter Summary ---
Author Organization [employer] Address [address] 7t [place] [address] Care Team Providers Care Racecourse Barrier Attendant Name Role Phone Ceci Billings MD Primary Care Provide r Reason for Visit * Reason Comments Med Refill Encounter Details Date Type Department Care Team (Late st Contact Info) Description 07/18/2024 Refill [facility] MEDICINE [address] [place] [address] Ceci Billings MD [address] [place] [address] Social History Tobacco Use Types Packs/Day Years [...] Description 06/19/2025 9:00 AM EST Office Visit [facility] MEDICINE [address] [place] [address] Ceci Billings MD [address] [place] [address] documented as of this encounter Visit Diagnoses Not on filedocumented in this encounter Additional Health Concerns Assessment Noted Time PHQ-9 Depression Total Score: 0 10/05/19 24 9:33 AM EDT documented as of this encounter Care Teams Racecourse Barrier Attendant Relationship Specialty Start Date End Date Ceci Billings MD [address] [place] [address] PCP - General Family Medicine 06/02/20 documented as of this encounter
--- OUTSIDE RECORDS SUMMARY | 2025-03-19 17:19 | XMS_ITS | Encounter Summary ---
Author Organization [employer] Address [address] 7t [place] [address] Care Team Providers Care Pest Control Service Technician Name Role Phone Ceci Billings MD Primary Care Provide r Reason for Visit * Reason Onset Date Comments Medication Question 03/12/2024 Encounter Details Date Type Department Care Team ([facility] Contact Info) Description 03/12/2024 Telephone [facility] [address] [place] [address] Ceci Billings MD 230 [place] [address] Medication Question Social History Tobacco Use Types [...] questions on med [place] . Callback number [phone] documented in this encounter Plan of Treatment Upcoming Encounters Date Type Department Care Team (Late st Contact Info) Description 06/19/2025 9:00 AM EST Office Visit [facility] [address] [place] [address] Ceci Billings MD [address] [place], [place] [phone] documented as of this encounter Visit Diagnoses Not on filedocumented in this encounter Additional Health Concerns Assessment Noted Time PHQ-9 Depression Total Score: 0 10/05/19 24 9:33 AM EDT documented as of this encounter Care Teams Pest Control Service Technician Relationship Specialty Start Date End Date Ceci Billings MD [address] [place] [address] PCP - General Family Medicine 06/02/20 documented as of this encounter
--- OUTSIDE RECORDS SUMMARY | 2025-03-19 17:19 | XMS_ITS | Encounter Summary ---
Author Organization [employer] Address [address] [facility] 7t [place] [address] Care Team Providers Care Interlocking Machine Operator Name Role Phone Ceci Billings MD Primary Care Provide r Reason for Visit * Reason Onset Date Comments Med Refill 10/31/2024 Encounter Details Date Type Department Care Team (Late st Contact Info) Description 10/31/2024 Refill [facility] [address] [place] [address] Ceci Billings MD [address] [place] [address] Multiple joint pain Social History Tobacco Use [...] Description 06/19/2025 9:00 AM EST Office Visit [facility] [address] [place] [address] Ceci Billings MD [address] [place] [address] documented as of this encounter Visit Diagnoses Diagnosis Multiple joint pain Pain in joint, multiple sites documented in this encounter Additional Health Concerns Assessment Noted Time PHQ-9 Depression Total Score: 0 09/08/19 25 9:03 AM EDT documented as of this encounter Care Teams Interlocking Machine Operator Relationship Specialty Start Date End Date Ceci Billings MD [address] [place] [address] PCP - General Family Medicine 06/02/20 documented as of this encounter
--- OUTSIDE RECORDS SUMMARY | 2025-03-19 17:19 | XMS_ITS | Clinical Summary ---
Author Organization [employer] Address [address] [place] [address] 7t [place] [address] Care Team Providers Care Commissary Representative Name Role Phone Ceci Billings MD [...] THREE TIMES DAILY NEEDED 18 g 3 11/13/2 024 Active famotidine (Pepcid) 20 MG tabletIndicatio ns:Heartburn Take 1 tablet (20 mg) by mouth 2 times daily. 60 tablet 024 2024 Active Tirzepatide-Mack ght Management (Zepbound) [...] MG) BY MOUTH EVERY DAY 90 tablet 025 Active zolpidem (Ambien) 10 MG tabletIndicatio [...] NOON, AND AT BEDTIME 90 tablet 1 025 Active Tirzepatide-Mack ght Management (Zepbound) 12.5 MG/0.5ML solution auto-injectorIn dications:BMI 40.0-44.9, adult (CMS/HCC) (HCC) Inject 0.5 mL (12.5 mg) under the skin 1 (one) time per week. INJECT ONE PEN (=12.5 MG) SUBCUTANEOUSLY ONCE A WEEK 2 mL 025 Active gabapentin (Neurontin) 600 MG tabletIndicatio ns:Lumbar radiculopathy, chronic TAKE 1 TABLET(600 MG) BY MOUTH THREE TIMES DAILY 90 tablet 2 025 Active gabapentin (Neurontin) 600 MG tabletIndicatio ns:Lumbar radiculopathy, chronic Take 1 tablet (600 mg) by mouth 3 times daily. 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 Insomnia 06/20/2015 Morbid obesity ([facility]/HCC) 06/20/2015 Assessment & Plan (12/20/2024 2:18 PM [...] Encounters Date Type Department Care Team Description 03/19/2025 9:00 AM EST Office Visit [address] [address] Ceci Billings MD Venous insufficiency (Primary Dx); Dietary counseling; Exercise counseling; Class 3 severe obesity due to excess calories with serious comorbidity and body mass index (BMI) of 40.0 to 44.9 in adult (HCC); Lumbar radiculopathy, chronic; Moderate persistent asthma, unspecified whether complicated 03/19/2025 Travel 03/18/[address] [address] Ceci Billings MD Chart Prep 03/13/[address] [address] Ceci Billings MD Lumbar radiculopathy, chronic 03/11/2025 Patient Outreach [address] [address] Ceci Billings MD Pre-visit Planning ((Unable to reach for PVP screening, LVM) to be completed in office ) 01/25/2025 Orders Only [facility] External Provider, [facility] 01/04/[address] [address] Ceci Billings MD telephone call 12/28/[address] [address] Ceci Billings MD Prior Authorization 12/25/[address] [address] Ceci Billings MD 12/25/2024 Orders Only [address] [address] Ceci Billings MD 12/20/2024 11:15 AM EDT Office Visit [address] [address] Ceci Blilings MD Obstructive sleep apnea syndrome (Primary Dx); Lumbar radiculopathy, chronic; Moderate persistent asthma, unspecified whether complicated; Morbid obesity ([facility]); Chronic hip pain, bilateral; Venous insufficiency; BMI 40.0-44.9, adult ([facility]) 12/20/[address] [address] Ceci Billings MD 12/20/[address] [address] Ceci Billings MD Durable Medical Equipment (DME RX Compression Stockings(L&C)) 12/20/2024 Travel 12/19/2024 Travel 12/19/[address] [address] Ceci Billings MD chart prep from Last 3 Months Immunizations Immunization Administration [...] Mass Index 40.94 03/19/2025 9:13 AM EST Plan of Treatment Upcoming Encounters Date Type Department Care Team (Late st Contact Info) Description 06/19/2025 9:00 AM EST Office Visit [facility] MED[facility] 230 [place] [address] Ceci Billings MD [address] [place], [place] [phone] Health Maintenance Due Date Last Done Comments [...] history exists Alcohol/Substance Use Screening 09/07/2025 09/07/2024 Depression Monitoring 09/16/2025 03/19/2025, 025 Disability Screening 12/19/2025 12/19/2024 Tobacco Screening 03/19/2026 03/19/2025 Zoster Vaccines (1 of 2) 2026 Colonoscopy 08/22/2028 08/23/2023, 08/23/2023 Colorectal Cancer Screening 08/22/2028 Cervical Cancer [...] DUPLEX BILATERAL Routine 01/25/2025 9:01 AM EDT LIPID PANEL, STANDARD Routine 08/07/2024 2:25 PM [...] Recently Relevant to Health Maintenance Results * [facility] US Lower Extremity Venous Duplex Bilateral (01/25/2025 9:01 AM EDT) 01/25/2025 9:01 AM EDT Narrative [facility] IMAGING - 01/25/2025 10:15 AM EDT [place] [address] Ultrasound Report Signed Patient: Windy Mcfarlane MR# : [id number] : 1975 Acct:[id number] Age/Sex: 49 / F ADM Date: 01/25/25 Loc: HO.US Attending Dr: Elvia MIRAMONTES Ordering Physician: Elvia Winslow Date of Service: 01/25/25 Procedure(s): US venous duplex LE BI Accession Number(s): [id number] cc: Ceci Billings MD; Elvia Winslow Reason [...] Bill Gavin MD 01/25/2025 10:12 AM EDT RP Dictated By: Bill Hi MD Signed By: <Electronically signed by Bill Pacheco MD in OV> 01/25/25 1012 DD/ 09 TD/TT: 01/25/25926 Shim Plug Cutter: Procedure Note Donotuseinterpreter, Image - 01/25/[address] [address] Ultrasound Report Signed Patient: Windy McfarlaneMR# : [id number] : 1975Acct:[id number] Age/Sex: 49 / FADM Date: 01/25/25 Loc: .US Attending Dr: Elvia MIRAMONTES Ordering Physician: Elvia Winslow Date of Service: 01/25/25 Procedure(s): US venous duplex LE BI Accession Number(s): [id number] cc: Ceci Billings MD; Elvia Winslow Reason [...] Bill Gavin MD 01/25/2025 10:12 AM EDT RP Dictated By: Bill Hi MD Signed By: <Electronically signed by Bill Pacheco MDin OV> 01/25/25 1012 DD/ 0901 TD/TT: 01/25/25926 Shim Plug Cutter: us [facility] External Provider CV VASC ULAR PROCEDURES Final Result [facility] IMAGING [address] [place] [address] * Lipid Panel, Standard (08/07/2024 2:25 PM EDT) Triglycerides 63 <150 mg/dL [facility] Comment:Desirable Triglyceri de: less than 150 mg/dLBorderline High Triglyceride 150-199 mg/dLHigh Triglyceride: 200-499 mg/dLVery High Triglyceride: greater than or equal to 5OO mg/dL Cholesterol 154 <200 mg/dL [facility] Comment:Desirable Cholestero l: less than 200 mg/dLBorderline High Cholesterol: 200-239 mg/dLHigh Cholesterol: greater than 239 mg/dL LDL Cholesterol Calculated 92 <100 mg/dL [facility] Comment:Desirable LDL: less than 100 mg/dLNear Optimal/Above Optimal LDL: 110- 129 mg/dLBorderline High LDL: 130-159 mg/dLHigh LDL: 160-189 mg/dLVery High LDL: greater than or equal to 190 mg/dL HDL Cholesterol 50 >40 mg/dL [facility] Comment:Desirable HDL: great er than 40 mg/dL Note: This HDL assay may give artificially low results in patients with liver disease. Blood Venous blood specimen / Unknown 08/07/2024 2:25 PM EDT 08/07/2024 4:10 PM EDT us Ceci Peacock MD LAB BLOOD ORDERABLES Final Result [facility] [address] [facility] [place] [address] [phone] * BI Mammogram Screening Tomosynthesis Bilateral (07/12/2024 1:45 PM EDT) Anatomical Region Laterality Modality Breast Bilateral Mammography 07/12/2024 1:45 PM EDT Narrative 07/20/2024 4:18 PM EDT [address] [place] [address] Mammography Report Signed Patient: Windy Mcfarlane MR# : [id number] : 1975 Acct:[id number] Age/Sex: 48 / F ADM Date: 07/12/24 Loc: HO.MAMMO Attending Dr: Ceci Peacock MD Ordering Physician: Ceci Billings MD Results: 2Benign Findings Date of Service: 07/12/24 Follow Up: 1 Year From Orig inal Mammogram Procedure(s): MM tomosynthesis screening BI Accession Number(s): [id number] cc: Ceci Billings MD EXAMINATION: MM SCREENING [...] 07/20/24 1614 DD/ 1345 TD/TT: 07/12/24 1401 Shim Plug Cutter: Procedure Note Donotuseinterpreter, Image - 07/20/2024 Yennifer [facility] [address] [place], [place] [address] Mammography Report Signed Patient: Windy McfarlaneMR# : [id number] : 1975Acct:[id number] Age/Sex: 48 / FADM Date: 07/12/24 Loc: HO.MAMMO Attending Dr: Ceci Peacock MD Ordering Physician: Ceci Billings MDResults: 2Benign Findings Date of Service: 07/12/24Follow Up: 1 Year From Orig inal Mammogram Procedure(s): MM tomosynthesis screening BI Accession Number(s): [id number] cc: Ceci Billings MD EXAMINATION: MM SCREENING [...] 07/20/24 1614 DD/ 1345 TD/TT: 07/12/24 1401 Shim Plug Cutter: Ceci Peacock MD IMG BI PROCEDURES Fin al Result * HM PAP/HPV (07/03/2024 11:57 AM EDT) Historical Provider MD HEALTH MAINTENANCE Final Result * Hm Colonoscopy (08/23/2023 11:53 AM EDT) Historical Provider HEALTH MAINTENANCE Final Result * HPV E6/E7 RFLX JESSICA 16 18/45 (11/09/2021 2:40 PM EDT) HPV mRNA E6/E7 rflx Not Detected Not Detected [facility] Comment: Methodology: Retail Management Trainee-Mediated Amplification This assay detects E6/E7 viral messenger RNA (mRNA) from 14 high-risk HPV types (16,18,31,33,35,39,45,51,52,56,58,59,66,68). Cervical sources are required for HPV testing. If a vaginal source from a patient who has had a total hysterectomy with removal of cervix was submitted, please contact the testing laboratory for alternative testing options. For additional information, please refer to http://education.Ponfac/faq/GWW966c2 (This link if provided for information/ educational purposes only.) THIS TEST WAS PERFORMED AT: [facility] [address] [place] [address] [address]LO[address],[place] [address] TIN DICKEY MD 11/09/2021 2:40 PM EDT Kylee WhiteKingman HISTORICAL/NON ORDERABLE LABS Fi nal Result [facility] Anywhere [address] from Last 3 Months or Most Recently Relevant to Health Maintenance Insurance MEDICARE Member Subscriber Plan / Payer (Ef fective 2024-Present) Name:Windy Mcfarlane Member ID:[id number] Relation to Subscriber:Self Name:Windy Mcfarlane Subscriber ID:[id number] Payer ID:STATE Group ID:Not on file Type:Medicare Address: [place] [employer] [facility] [address] [address] [facility] Care Teams Commissary Representative Relationship Specialty Start Date End Date Ceci Billings MD [address] [place] [phone] PCP - General Family Medicine 06/02/20
--- OUTSIDE RECORDS SUMMARY | 2025-03-19 17:19 | XMS_ITS | Clinical Summary ---
Author Organization [address] [facility] Address [address] [place] [address] Phone Care Team Providers Care Rim Buster Name Role Phone Katrina Sherwood MD Primary Care Provider [phone] Allergies Active Allergy Reactions Criticality Noted Date [...] times a day. 130 g 03/15/20 25 Encounters Date Type Department Care Team Description 02/13/2025 Telephone Orthopedic Surgery [place] [address] [phone] Juan Moody DPM 02/11/2025 1:00 PM EDT Office Visit Orthopedic [place] [address] [phone] Juan Moody DPM Posterior tibial tendinitis of right leg (Primary Dx); Lumbosacral radiculopathy; Plantar fasciitis; Max's neuroma of right foot from Last 3 Months Social History [...] Upcoming Encounters Date Type Department Care Team ([facility] st Contact Info) Description 04/15/2025 1:15 PM EST Office Visit Orthopedic Surgery [facility] [address] [phone] Juan Moody DPM [address] [address] Health Maintenance Due Date Last Done Comments [...] Routine 02/11/2025 1:00 PM EDT Plantar fasciitis LIPID PANEL Routine [...] Insurance MEDICAID - [place] MEDICARE Care Teams Rim Buster Relationship Specialty Start Date End Date Katrina Sherwood MD [address] [place] [phone] PCP - General Internal Medicine 01/02/14
--- OUTSIDE RECORDS SUMMARY | 2025-03-19 17:19 | XMS_ITS | Encounter Summary ---
Author Organization [employer] Address [address] [address] [facility] [address] 7t [place] [address] Care Team Providers Care Film Laboratory Technician Name Role Phone Ceci Billings MD Primary Care Provide r Encounter Details Date Type Department Care Team (Late st Contact Info) Description 07/03/2024 Orders Only [facility]S [address] [place] [address] Provider, MD Chito Social History Tobacco Use [...] 9:00 AM EST Office Visit [facility] MEDICINE [address] [place] [address] Ceci Billings MD [address] [place] [address] documented as of this encounter Procedures Procedure [...] PM EDT Narrative 07/20/2024 4:18 PM EDT [facility]'s [address] [place] [address] Mammography Report Signed Patient: Windy Mcfarlane MR# : [id number] : 1975 Acct:[id number] Age/Sex: 48 / F ADM Date: 07/12/24 Loc: HO.MAMMO Attending Dr: Ceci Peacock MD Ordering Physician: Ceci Billings MD Results: 2Benign Findings Date of Service: 07/12/24 Follow Up: 1 Year From Orig inal Mammogram Procedure(s): MM tomosynthesis screening BI Accession Number(s): [id number] cc: Ceci Billings MD EXAMINATION: MM SCREENING [...] 07/20/24 1614 DD/ 1345 TD/TT: 07/12/24 1401 Receiving Team Member: Procedure Note Donotuseinterpreter, Image - 07/20/2024 Yennifer [facility] [address] [place] [address] Mammography Report Signed Patient: Windy McfarlaneMR# : [id number] : 1975Acct:[id number] Age/Sex: 48 / FADM Date: 07/12/24 Loc: HO.MAMMO Attending Dr: Ceci Peacock MD Ordering Physician: Ceci Billings MDResults: 2Benign Findings Date of Service: 07/12/24Follow Up: 1 Year From Orig inal Mammogram Procedure(s): MM tomosynthesis screening BI Accession Number(s): [id number] cc: Ceci Billings MD EXAMINATION: MM SCREENING [...] 07/20/24 1614 DD/ 1345 TD/TT: 07/12/24 1401 Receiving Team Member: us Ceci Peacock MD IMG BI PROCEDURES Fin al Result * Bacterial Vaginosis (07/03/2024 12:00 AM EDT) TRICHOMONAS VAGINALIS DETECTION BY PCR NOT DETECTED Not Detect [facility] BACTERIAL VAGINOSIS DETECTION BY PCR NEGATIVE Negative [facility] Comment:The BV organism targ ets [...] DETECTION BY PCR NOT DETECTED Not Detect [facility] Jeni glab krusei PCR NOT DETECTED Not Detect [facility] 07/03/2024 07/03/2024 us Generic External Data Provider LAB MICROBIOLOGY - GENERAL ORDERABLES Final Result [facility] [address] [place] [address] [phone] * Chlamydia/N. Gonorrhoeae RNA, TMA, Urogenitial (07/03/2024 12:00 AM EDT) CT PCR NOT DETECTED Not Detect. [facility] Comment:A not detected test result [...] psychologicalconsequences. NG PCR NOT DETECTED Not Detect. [facility] Comment:A not detected test result [...] medical, social or psychologicalconsequences. 07/03/2024 07/03/2024 Narrative [facility] - 07/04/2024 5:16 AM EDT Vaginal us Generic External Data Provider LAB MICROBIOLOGY - GENERAL ORDERABLES Final Result [facility] [address] [place] [address] [phone] * Colonoscopy (08/23/2023 11:53 AM EDT) us Historical Provider HEALTH MAINTENANCE Final Result documented in this encounter Visit Diagnoses Not on filedocumented in this encounter Additional Health Concerns Assessment Noted Time PHQ-9 Depression Total Score: 0 10/05/19 24 9:33 AM EDT documented as of this encounter Care Teams Film Laboratory Technician Relationship Specialty Start Date End Date Ceci Billings MD [address] [place] [address] PCP - General Family Medicine 06/02/20 documented as of this encounter
--- OUTSIDE RECORDS SUMMARY | 2025-03-19 17:19 | XMS_ITS | Encounter Summary ---
Author Organization [employer] Address [address] [facility] 7t [place] [address] Care Team Providers Care Gum Remover Name Role Phone Ceci Billings MD Primary Care Provide r Reason for Visit * Reason Comments Med Refill Encounter Details Date Type Department Care Team ([facility] Contact Info) Description 04/30/[address] [facility] [address] [place] [address] Jesús Vale MD [address] [place] [address] Influenza-like illness Social History Tobacco Use Types [...] Upcoming Encounters Date Type Department Care Team ([facility] Contact Info) Description 06/19/2025 9:00 AM EST Office Visit [facility] [address] [place] [address] Ceci Billings MD [address] [place], [place] [phone] documented as of this encounter Visit Diagnoses Diagnosis Influenza-like illness documented in this encounter Care Teams Gum Remover Relationship Specialty Start Date End Date Ceci Billings MD [address] [place], [place] [phone] PCP - General Family Medicine 06/02/20 documented as of this encounter
--- OUTSIDE RECORDS SUMMARY | 2025-03-19 17:19 | XMS_ITS | Encounter Summary ---
Author Organization [employer] Address [address] 7[address] [place] [address] Care Team Providers Care Education Liaison Name Role Phone Ceci Billings MD Primary Care Provide r Encounter Details Date Type Department Care Team (Latest Contact Info) Description 03/19/2025 Travel Social History Tobacco Use Types Packs/Day [...] PM EST documented as of this encounter Functional Status * Over the past 2 weeks, how often have you been bothered by any of the following problems? Question Answer Date of Assessment Author Patient Health Questionnaire-2 Score 2 02/24 9:44 AM Jyoti Cavanaugh MA * Little interest or pleasure in [...] Cavanaugh MA documented as of this encounter Plan of Treatment Upcoming Encounters Date Type Department Care Team (Late st Contact Info) Description 06/19/2025 9:00 AM EST Office Visit [facility] [address] [place] [address] Ceci Billings MD 230 [place] [address] documented as of this encounter Visit Diagnoses Not on filedocumented in this encounter Additional Health Concerns Assessment Noted Time PHQ-9 Depression Total Score: 10 025 9:44 AM EST documented as of this encounter Care Teams Education Liaison Relationship Specialty Start Date End Date Ceci Billings MD [address] [place] [phone] PCP - General Family Medicine 06/02/20 documented as of this encounter
--- OUTSIDE RECORDS SUMMARY | 2025-03-19 17:19 | XMS_ITS | Encounter Summary ---
Author Organization [employer] Address [address] [facility] [address] [facility] [address] 7[address] [place] [address] Care Team Providers Care Dairy Farm Supervisor Name Role Phone Ceci Billings MD Primary Care Provide r Encounter Details Date Type Department Care Team ([facility] Contact Info) Description 04/23/2024 Orders Only [facility] MED[facility]INE [address] [place] [address] Ceci Billings MD [address] [place] [address] Social History Tobacco Use Types Packs/Day Years [...] Description 06/19/2025 9:00 AM EST Office Visit [facility] MED[facility]INE [address] [place] [address] Ceci Billings MD [address] [place] [address] documented as of this encounter Visit Diagnoses Not on filedocumented in this encounter Additional Health Concerns Assessment Noted Time PHQ-9 Depression Total Score: 0 10/05/19 24 9:33 AM EDT documented as of this encounter Care Teams Dairy Farm Supervisor Relationship Specialty Start Date End Date Ceci Billings MD [address] [place] [id number] PCP - General Family Medicine 06/02/20 documented as of this encounter
--- OUTSIDE RECORDS SUMMARY | 2025-03-19 17:19 | XMS_ITS | Encounter Summary ---
Author Organization [employer] Address [address] 7t [place] [address] Care Team Providers Care Analyst Geochemical Prospecting Name Role Phone Ceci Billings MD Primary Care Provide r Reason for Visit * Reason Comments Med Refill Encounter Details Date Type Department Care Team (Late st Contact Info) Description 01/03/2024 Refill [facility] [address] [place] [address] Ceci Billings MD [address] [place] [address] Social History Tobacco Use Types Packs/Day Years [...] Description 06/19/2025 9:00 AM EST Office Visit [facility] [address] [place] [address] Ceci Billings MD [address] [place] [address] documented as of this encounter Visit Diagnoses Not on filedocumented in this encounter Additional Health Concerns Assessment Noted Time PHQ-9 Depression Total Score: 0 10/05/19 24 9:33 AM EDT documented as of this encounter Care Teams Analyst Geochemical Prospecting Relationship Specialty Start Date End Date Ceci Billings MD [address] [place] [address] PCP - General Family Medicine 06/02/20 documented as of this encounter
--- OUTSIDE RECORDS SUMMARY | 2025-03-19 17:19 | XMS_ITS | Encounter Summary ---
Author Organization [employer] Address [address] [address] 7[address] [place] [address] Care Team Providers Care Ground Water Technician Name Role Phone Ceci Billings MD Primary Care Provide r Encounter Details Date Type Department Care Team (Late st Contact Info) Description 12/25/2024 Orders Only [facility] MEDICINE [address] [place] [address] Ceci Billings MD [address] [place] [address] Social History Tobacco Use Types Packs/Day Years [...] 9:00 AM EST Office Visit [facility] MEDICINE [address] [place] [address] Ceci Billings MD [address] [place] [address] documented as of this encounter Visit Diagnoses Not on filedocumented in this encounter Additional Health Concerns Assessment Noted Time PHQ-9 Depression Total Score: 4 12/21/19 25 11:24 AM EDT documented as of this encounter Care Teams Ground Water Technician Relationship Specialty Start Date End Date Ceci Billings MD [address] [place] [address] PCP - General Family Medicine 06/02/20 documented as of this encounter
--- OUTSIDE RECORDS SUMMARY | 2025-03-19 17:19 | XMS_ITS | Encounter Summary ---
Author Organization [employer] Address [address] [facility] [address] [facility] [address] 7[address] [place] [address] Care Team Providers Care House Piping Inspector Name Role Phone Ceci Billings MD Primary Care Provide r Reason for Visit * Reason Onset Date Comments Med Refill 10/02/2024 Encounter Details Date Type Department Care Team (Late st Contact Info) Description 10/02/2024 Refill [facility] 230 [place] [address] Ceci Billings MD [address] [place] [address] Morbid obesity (CMS/HCC) Social History Tobacco Use [...] Description 06/19/2025 9:00 AM EST Office Visit [facility] [address] [place] [address] Ceci Billings MD [address] [place] [address] documented as of this encounter Visit Diagnoses Diagnosis Morbid obesity (CMS/HCC) (HCC) Morbid obesity documented in this encounter Additional Health Concerns Assessment Noted Time PHQ-9 Depression Total Score: 0 09/08/19 9:03 AM EDT documented as of this encounter Care Teams House Piping Inspector Relationship Specialty Start Date End Date Ceci Billings MD [address] [place] [phone] PCP - General Family Medicine 06/02/20 documented as of this encounter
--- OUTSIDE RECORDS SUMMARY | 2025-03-19 17:19 | XMS_ITS | Patient Health Record ---
Author Organization [facility] Address [address] [place] [address] Care Team Providers Care Commercial Trailer Truck Driver Name Role Phone Ceci Blackburn M.D. Primary Care Provider Emerson Schwartz [phone] Allergies Allergen (clinical drug ingredient) Drug/Non Drug Allergy documented on EMR Reaction Allergy Type Onset Date Status ciprofloxacin cipro (uncoded) Unknown Allergy Active vancomycin Vancomycin HCl Unknown Drug Allergy A ctive Results Component Value Reference Range Flag Notes Complete Blood Count Auto Di ff Reviewed date:04/09/2024 10:38:42 PM Interpretation: Performing Lab:[facility], [address] [place] [id number] Notes/Report: White Blood Count 5.2 4.8-10.8 X10*3/uL N Red Blood Count 4.51 4.20-5.50 X10*6/uL N Hemoglobin 12.6 12.0-16.0 g/dl N Hematocrit 40.1 37.0-47.0 % N Mean Corpuscular Volume 88.9 80.0-98.0 fL N Mean Corpuscular Hemoglobin 27.9 27.0-33.0 pg N Mean Corpuscular HGB Conc 31.4 31.0-35.0 g/dl N Red Cell Distribution Width 13.2 11.0-16.0 % N Platelet Count 224 160-400 X10*3/uL N Mean Platelet Volume 11.3 9.4-12.3 fL N Neutrophils Percent Auto 52.8 45-73 % N Imm Gran Pct Auto 0.4 0.0-0.4 % N Lymphocytes Percent Auto 31.0 20-40 % N Monocytes Percent Auto 8.7 2-11 % N Eosinophils Percent Auto 6.7 0-4 % H Basophils Percent Auto 0.4 0-2 % N NRBC Pct Auto 0.0 0.0-0.2 /100WBC N Neutrophils Absolute Auto 2.8 2.0-8.3 x10*3/uL N Imm Gran Abs Auto 0.02 0.00-0.03 X10*3/uL N Lymphocytes Absolute Auto 1.6 1.2-4.9 X10*3/uL N Monocytes Absolute Auto 0.5 0.1-1.2 X10*3/uL N Eosinophils Absolute Auto 0.4 0.0-0.4 X10*3/uL N Basophils Absolute Auto 0.0 0.0-0.2 X10*3/uL N NRBC Abs Auto 0.000 0.0-0.012 X10*3/uL N Liver Panel Reviewed date:04/04/2024 01:40:57 PM Interpretation: Performing Lab:[address] [id number] Notes/Report: Bilirubin Total 0.2 0.0-1.0 mg/dL N Bilirubin Direct < 0.2 0.0-0.5 mg/dL N Aspartate Amino Transferase 22 5-31 U/L N Alanine Aminotransferase 34 0-31 U/L H Total Protein 7.2 6.5-8.0 g/dL N Albumin Level 3.7 3.5-5.0 g/dL N Alkaline Phosphatase 71 39-117 U/L N [place] KEMPT Reviewed date:06/05/2024 05:15:56 PM Interpretation: Performing Lab:[address] [id number] Notes/Report: Dakota KEMPT SEE NOTE SEE SCANNED RESULTS IN EMR Reason For Referral No Information Medications Medication SIG (Take, Route, Frequency, Duration) Notes Start Date End Date Status Vitamin D 2000 UNIT Tablet 1 tablet Orally Once a day; Duration: 30 day(s) Not-Taking/P R N Pantoprazole Sodium 40 MG Tablet Delayed Release Oral; Duration: 90 Days Active Fexofenadine HCl 180 MG Tablet 1 tablet as needed Orally Once a day; Duration: 30 day(s) Active Dicyclomine HCl 20 MG Tablet Oral; Duration: 30 Days Active Ambien 10 MG Tablet 1 tablet at bedtime as needed Orally Once a day Active Stelara 90 MG/ML Solution Prefilled Syringe INJECT CONTENTS OF 1 SYRINGE UNDER THE SKIN EVERY 4 WEEKS Subcutaneous; Duration: 28 Days Active Baclofen 20 MG/20ML Solution Intrathecal Three times a day Not-Taking/ID N Nabumetone 500 MG Tablet Oral; Duration: 30 Days Active Gabapentin 600 MG Tablet Oral; Duration: 30 Days Active Emgality 120 MG/ML Solution Auto-injector Subcutaneous; Duration: 28 Days For headache Active Metamucil 0.36 GM Capsule Take 2 with at least 8 ounces of juice or water Orally Twice a day for constipation; Duration: 30 days 01/09/2025 Active Tylenol 325 MG Tablet 1 tablet as needed Orally prn Active Senna PRN Active Propranolol HCl 20 MG Tablet Oral; Duration: 90 Days Active hydrOXYzine Pamoate 25 MG Capsule as directed Orally every 6 hrs Not-Taking/ID N Arnuity Ellipta 100 MCG/ACT Aerosol Powder Breath Activated INHALE 1 PUFF BY MOUTH DAILY. RINSE MOUTH WITH WATER AFTER USE FOR AFTERTASTE AND INCIDENCE OF CANDIDIASIS. DO NOT SWALLOW Inhalation; Duration: 30 Days Active Zepbound 2.5 MG/0.5ML Solution Auto-injector 0.5 mL Subcutaneous; Duration: 30 day(s) Not-Taking/P R N Albuterol Sulfate HFA 108 (90 Base) MCG/ACT Aerosol Solution INHALE 2 PUFFS BY MOUTH EVERY 4 TO 6 HOURS NEEDED FOR SHORTNESS OF BREATH OR WHEEZING Inhalation; Duration: 16 Days Active MiraLax 17 GM/SCOOP Powder Take 1 measured dose in the cap of the bottle in at least 8 ounces of water or juice Orally Twice a day for constipation; Duration: 30 days 01/09/2025 Active Albuterol Sulfate HFA 108 (90 Base) MCG/ACT Aerosol Solution Inhalation; Duration: 16 Days Active Ondansetron HCl 8 MG Tablet TAKE ONE TABLET BY MOUTH EVERY 8 HOURS NEEDED Oral; Duration: Not Available Active Fluconazole 150 MG Tablet 1 tablet Orally Take 1 on Day #1, 1 on Day #2, and 1 on Day #7; Duration: 7 days PRN Active Stelara 90 MG/ML Solution Prefilled Syringe 1 injection every 4 weeks Subcutaneous Every 4 weeks; Duration: 28 days Active Docusate Sodium 100 MG Capsule 1 Orally Twice a day for constipation; Duration: 30 days 01/09/2025 Active Pantoprazole Sodium 40 MG Tablet Delayed Release TAKE 1 TABLET BY MOUTH DAILY; Duration: 30 Active Gabapentin 400 MG Capsule Oral; Duration: 30 Days Active Fexofenadine HCl 180 MG Tablet TAKE 1 TABLET BY MOUTH EVERY DAY NEEDED Oral; Duration: 90 Days Active Dicyclomine HCl 20 MG Tablet TAKE 1 TABLET BY MOUTH THREE TIMES DAILY WITH MEALS; Duration: 30 PRN Active clonazePAM 0.5 MG Tablet Oral; Duration: 30 Days Active Propranolol HCl 20 MG Tablet TAKE 1 TABLET BY MOUTH EVERY DAY Oral; Duration: 90 Active Imodium A-D 2 MG Tablet 1 or 2 tablets Orally Every 4 to 6 hours as needed for diarrhea; Duration: 30 days PRN 08/14/2022 Active Sertraline HCl 50 MG Tablet 1 half tablet Orally Once a day Active Montelukast Sodium 10 MG Tablet TAKE 1 TABLET BY MOUTH EVERY NIGHT AT BEDTIME NEEDED FOR RHINITIS Oral; Duration: 90 Days Active Dicyclomine HCl 10.0 Milligram Capsule Take 1 or 2 capsules QID prn abdominal cramps and/or diarrhea Active Sertraline HCl 100 MG Tablet TAKE 1 TABLET BY MOUTH DAILY Oral; Duration: 30 Days Active Diphenoxylate-Atrop ine 0 Tablet TAKE 1 TO 2 TABLETS BY MOUTH FOUR TIMES DAILY NEEDED FOR DIARRHEA only prn-rare Active Gabapentin 400 MG Capsule Oral; Duration: 30 Days Active Uqzqzsmjaz-XVBZ-Fbc feine 50-325-40 MG Tablet TAKE 1 TO 2 TABLETS BY MOUTH EVERY 4 HOURS NEEDED. NOT TO EXCEED 6 TABLETS PER 24 HOURS Oral; Duration: 5 Not-Taking/ID N Zolpidem Tartrate 10 MG Tablet TAKE 1 [...] stop date) Former Smoker NA - NA Social History Tobacco Use: Social Info Question Answer Notes Tobacco Use/Smoking Patient is a former smoker How long has it been since you last smoked? > 10 years Additional Details Category Social Info Options Details Miscellaneous: Marital status: single Occupation: unemployed Section Notes: She does not smoke nor [...] Status Risk Notes Problem Colon cancer screening (610086275) Colon cancer screening (Z12.11) Active confirmed Problem Irritable bowel syndrome (19602531) Irritable bowel syndrome (K58.9) Active confirmed Problem Constipation (58537152) Constipation (K59.00) Active confirmed Problem Crohn's disease of small AND large intestines (82034382) Crohn's disease of both small and large intestine without complication (K50.80) Active confirmed Problem Nausea (426434520) Nausea (R11.0) Active confir med Problem Therapeutic drug monitoring, quantitative (regime/therapy) (21238034) Encounter for therapeutic drug level monitoring (Z51.81) Active confirmed Problem Dysphagia (03169599) Dysphagia (R13.10) Active confirmed Problem Crohn's disease of small AND large intestines (28326537) Crohns disease of both small and large intestine without complication (K50.80) Active confirmed Problem Gastroesophageal reflux disease (075471274) Gastroesophageal reflux disease, esophagitis presence not specified (K21.9) Active confirmed Problem Chronic gastritis (0443296) Chronic gastritis (K29.50) Active confirmed Problem Diarrhea (23530440) Diarrhea, unspecified type (R19.7) Active confirmed Problem Crohn's disease of small AND large intestines (86028256) Crohn''s disease of both small and large intestine without complication (K50.80) Active confirmed Problem Erythematous ski n nodule (R22.9) Active confirmed Problem Vaginal candidiasis (90947720) Vaginal candidiasis (B37.3) Active confirmed Problem Drug monitoring done (984518038) Encounter for therapeutic drug monitoring (Z51.81) Active confirmed Problem Gastroesophageal reflux disease (disorder) (177128666) Chronic GERD (K21.9) Active confirmed Vital Signs Temperature 97.2 degrees Fahrenheit 01/09/2025 Blood pressure diastolic 01 mm Hg 01/09/2025 Height 65.5 in 01/09/2025 Blood pressure systolic 001 mm Hg 01/09/2025 Weight 254.2 lbs 01/09/2025 BMI 41.65 kg/m2 01/09/2025 Encounters Encounter Location Date Provider Diagnosis [facility] [address] [place] [address] 06/05/2024 Emerson Canales Crohn's disease of both small and large intestine without complication K50.80 ; Irritable bowel syndrome K58.9 ; Chronic GERD K21.9 and Vaginal candidiasis B37.3 [facility] [address] [place] [address] 01/09/2025 Emerson Canales Crohns disease of jaquelin th small and large intestine without complication K50.80 and Constipation K59.00 [facility] [address] [place] [address] 05/[facility]20[facility] [address] [place] [address] 06/05/2024 Emerson Cortez [facility] [address] [place] [address] 06/14/2024 [facility] [address] [place] [address] 06/22/2024 Emerson Canales [facility] [address] [place] [address] 10/24/2024 Emerson Canales Assessments Encounter Date Diagnosis [...] regimen including MiraLAX, fiber supplement, and another keke-ztr-mjaenjp stool softener such as Colace. I advised [...] regimen including MiraLAX, fiber supplement, and another iaba-eql-xooszou stool softener such as Colace. I advised [...] Date CHEM 7 PROFILE 07/10/2020 LIVER PROFILE 07/10/2020 LIVER PROFILE 01/08/2021 LIVER PROFILE 07/15/2016 LIVER PROFILE 01/24/2018 LIVER PROFILE 08/13/2021 LIVER PROFILE 07/08/2013 LIVER PROFILE 04/01/2015 LIVER PROFILE 11/03/2015 LIVER PROFILE 07/12/2016 LIVER PROFILE 07/11/2017 LIVER PROFILE 12/11/2017 LIVER PROFILE 10/17/2018 LIVER PROFILE 05/23/2019 LIVER PROFILE 02/03/2024 IRON + IBC (FE) 08/13/2021 CRP 01/08/2021 CRP 01/24/2018 CRP 08/13/2021 VITAMIN B12 AND FOLATE 08/13/2021 CBC w DIFF 08/13/2021 CBC w DIFF 07/12/2016 CBC w DIFF 11/03/2015 CBC w DIFF 07/08/2013 CBC w DIFF 04/01/2015 CBC w DIFF 01/24/2018 CBC w DIFF 07/10/2020 CBC w DIFF 05/09/2014 CBC w DIFF 07/15/2016 CBC w DIFF 01/08/2021 CBC w DIFF 02/03/2024 CBC w DIFF 12/11/2017 CBC w DIFF 10/17/2018 CBC w DIFF 07/11/2017 CBC w/o DIFF 05/23/2019 SED RATE (ESR) 01/08/2021 SED RATE (ESR) 08/13/2021 SED RATE (ESR) 01/24/2018 OTHER REF LAB TEST - MISC 07/15/2016 OTHER REF LAB TEST - MISC 07/12/2016 NUC HIDA SCAN 02/23/2014 PROMETHEUS THIOPURINE METABOLITES (TPMT) 01/24/2018 PROMETHEUS THIOPURINE METABOLITES (TPMT) 07/12/2016 PROMETHEUS THIOPURINE METABOLITES (TPMT) 12/11/2017 PROMETHEUS THIOPURINE METABOLITES (TPMT) 07/11/2017 T SPOT TB 01/02/2019 C DIFFICILE RFLX PCR 08/19/2022 Ferritin 08/13/2021 Prometheus Anser UST 01/09/2025 Prometheus Anser UST 01/08/2021 Prometheus Anser UST 02/03/2024 GI PANEL 08/19/2022 Future Test Test Name Order Date COLONOSCOPY 05/08/2013 UPPER GI ENDOSCOPY 06/08/2018 COLONOSCOPY 06/08/2018 UPPER GI ENDOSCOPY BALLOOON DILATION OF ESOPH 06/30/2023 COLONOSCOPY 06/30/2023 Next Appt Details Provider Name:Emerson Fry Ally , 07/30/2025 09:10:00 AM, [address] [facility], [address], [place], [address], Insurance Providers Payer Name Payer Address Payer Phone Subscriber Number Group Number Insured Name Patient Relationship to Insured Coverage Start Date Coverage End Date [place] [address] [place] [address] [id number] STEPHIE DORSEY Self - patient is the insured MEDICAID OF [facility] [address] [place] [id number] STEPHIE DORSEY Self - patient is the insured Medical (General) History Medical History History ICD Code Colonoscopy 07-07-2012 Crohn's colitis-diagnosed in 2000- colonoscopy in 02/2009 at [facility] with diffuse colitis/ileitis-has been treated with Remicade, Humira, and azathioprine in the past at [facility]- Stephie reports that the mesalamines and azathioprine seem to exacerbate her GI symptoms with gas and cramps- however, at those time she is usually having active Crohn's disease symptoms as well- -she was hospitalized at [facility] in 06/2013 for a flareup of the [...] 01/2019 for the Crohn's and psoriasis Denies SC,DM,CVA,Lung disease,renal dise ase Anemia- sees Dr. Pulido/Dr. [...] Surgery Date(Month/Year) Breast reduction Lap Band in 2008- still in place Pneumothorax with chest tubes Lap band removed with improvement in her dysphagia 10/29/2023 Left and right in arm pit areas- removal of benign lumps
--- OUTSIDE RECORDS SUMMARY | 2025-03-19 17:20 | XMS_ITS | Encounter Summary ---
Author Organization [employer] Address [address] [place] [address] 7t [place] [address] Care Team Providers Care Lens Coating Technician Name Role Phone Ceci Billings MD Primary Care Provide r Reason for Visit * Reason Comments Med Refill Encounter Details Date Type Department Care Team (Late Contact Info) Description 12/02/2022 Refill [facility] [address] [place] [address] Name, MD Yaniv [address] [place] [address] Insomnia, unspecified type Social History Tobacco Use [...] Description 06/19/2025 9:00 AM EST Office Visit [facility] [address] [place] [address] Ceci Billings MD [address] [place] [address] documented as of this encounter Visit Diagnoses Diagnosis Insomnia, unspecified type documented in this encounter Additional Health Concerns Assessment Noted Time PHQ-9 Depression Total Score: 0 08/07/19 23 9:07 AM EDT documented as of this encounter Care Teams Lens Coating Technician Relationship Specialty Start Date End Date Ceci Billings MD [address] [place] [address] PCP - General Family Medicine 06/02/20 documented as of this encounter
--- OUTSIDE RECORDS SUMMARY | 2025-03-19 17:20 | XMS_ITS | Encounter Summary ---
Author Organization [employer] Address [address] [place] [address] Care Team Providers Care Filling Station Attendant Name Role Phone Ceci Billings MD Primary Care Provide r Encounter Details Date Type Department Care Team (Late st Contact Info) Description 07/27/2023 Orders Only [facility] [address] [place] [address] Ceci Billings MD [address] [place] [address] Class 3 severe obesity with serious comorbidity [...] Description 06/19/2025 9:00 AM EST Office Visit [facility] [address] [place] [address] Ceci Billings MD [address] [place] [address] documented as of this encounter Visit Diagnoses Diagnosis Class 3 severe obesity with serious comorbidity and body mass index (BMI) of 45.0 to 49.9 in adult, unspecified obesity type (HCC)- Primary documented in this encounter Additional Health Concerns Assessment Noted Time PHQ-9 Depression Total Score: 5 07/07/19 24 10:12 AM EDT documented as of this encounter Care Teams Filling Station Attendant Relationship Specialty Start Date End Date Ceci Billings MD [address] [place] [address] PCP - General Family Medicine 06/02/20 documented as of this encounter
--- OUTSIDE RECORDS SUMMARY | 2025-03-19 17:20 | XMS_ITS | Encounter Summary ---
Author Organization [employer] Address [address] [place] [address] Care Team Providers Care Automobile Carpets Molder Name Role Phone Ceci Billings MD Primary Care Provide r Reason for Visit * Reason Comments Med Refill Encounter Details Date Type Department Care Team (Late st Contact Info) Description 11/30/2023 Refill [facility] [address] [place] [address] Ceci Billings MD [address] [place] [address] Muscle spasm Social History Tobacco Use Types [...] Description 06/19/2025 9:00 AM EST Office Visit [facility] [address] [place] [address] Ceci Billings MD [address] [place] [address] documented as of this encounter Visit Diagnoses Diagnosis Muscle spasm Spasm of muscle documented in this encounter Additional Health Concerns Assessment Noted Time PHQ-9 Depression Total Score: 0 10/05/19 24 9:33 AM EDT documented as of this encounter Care Teams Automobile Carpets Molder Relationship Specialty Start Date End Date Ceci Billings MD [address] [place] [address] PCP - General Family Medicine 06/02/20 documented as of this encounter
== END 2025-03-19 13:48 | disposition home or self-care (01) ==
LOC: HO.HCS 13:26
PROVIDERS: PCP Internal Medicine; Visit Provider Nurse Practitioner Family
DX: R00.2 Palpitations (principal); I49.1 Atrial premature depolarization
CPT/HCPCS: 99214; G2211

== ENCOUNTER → 2025-03-19 13:25 | Outpatient (BNVA) | payer MEDICARE, MEDICAID, SELFPAY | PROVIDERS: PCP Internal Medicine; Visit Provider Nurse Practitioner Family | DX: R00.2 Palpitations (principal); I49.1 Atrial premature depolarization | CPT/HCPCS: 99212 ==

== ENCOUNTER 2025-03-26 06:42 | Outpatient (REF) | payer MEDICARE, MEDICAID, SELFPAY ==
--- NOTE | ~2025-03-26 | FL_ITS ---
EXAMINATION: FLUOROSCOPY GUIDANCE FOR NEEDLE PLACEMENT CLINICAL INFORMATION: M17.11 - Unilateral primary osteoarthritis, right knee COMPARISON: Right knee x-ray September 2022 TECHNIQUE: Fluoroscopy guidance provided for pain management procedure. FINDINGS: 3 submitted images demonstrate needle placement adjacent to the medial and lateral distal shaft of the femur and a single needle projecting over the proximal shaft of the tibia for geniculate nerve block. See procedure note for detailed findings. FLUOROSCOPY TIME: 40 seconds DOSE AREA PRODUCT: [id number] mGy-cm2 FL/FL guidance in treatment room IMPRESSION: Fluoroscopy guidance for pain management procedure. Electronically signed by: Stefanie Jay MD 03/26/2025 12:49 PM [facility]
--- OUTSIDE RECORDS SUMMARY | 2025-03-26 06:45 | XMS_ITS | Encounter Summary ---
Author Organization [employer] Address [address] [facility] [address] [place] [address] Care Team Providers Care Stiff Leg Derrick Operator Name Role Phone Ceci Billings MD Primary Care Provide r Encounter Details Date Type Department Care Team (Late st Contact Info) Description 08/15/2024 Orders Only [facility] [address] [place] [address] Provider, MD Chito Social History Tobacco Use [...] Description 06/19/2025 9:00 AM EST Office Visit [facility] [address] [place] [phone] Ceci Billings MD [address] [place] [address] documented as of this encounter Procedures Procedure [...] documented as of this encounter Care Teams Stiff Leg Derrick Operator Relationship Specialty Start Date End Date Ceci Billings MD [address] [place] [address] PCP - General Family Medicine 06/02/20 documented as of this encounter
--- OUTSIDE RECORDS SUMMARY | 2025-03-26 06:45 | XMS_ITS | Clinical Summary ---
Author Organization [facility] Address 175 [place] [address] Phone Care Team Providers Care Safety Analyst Name Role Phone Katrina [place] MD Primary Care Provider [phone]- [phone] Allergies Active Allergy Reactions Criticality Noted Date [...] Care Team Description 02/13/2025 Telephone Orthopedic Surgery [place] [address] [phone] Juan Moody DPM 02/11/2025 1:00 PM EDT Office Visit Orthopedic [place] [address] [phone] Juan Moody DPM Posterior tibial tendinitis of [...] Upcoming Encounters Date Type Department Care Team ([facility] st Contact Info) Description 04/15/2025 1:15 PM EST Office Visit Orthopedic Surgery [facility] [address] [phone] Juan Moody DPM [address] [address] Health Maintenance Due Date Last Done Comments [...] Insurance MEDICAID - [place] MEDICARE Care Teams Safety Analyst Relationship Specialty Start Date End Date Katrina [place] MD [address] [place] [phone] PCP - General Internal Medicine 01/02/14
--- OUTSIDE RECORDS SUMMARY | 2025-03-26 06:46 | XMS_ITS | Encounter Summary ---
Author Organization [employer] Address [address] [facility] [address] 7[address] [place] [address] Care Team Providers Care Container Washer Machine Name Role Phone Ceci Billings MD Primary Care Provide r Reason for Visit * Reason Comments Med Refill Encounter Details Date Type Department Care Team (Late st Contact Info) Description 03/22/2025 Refill [facility] [address] [place] [address] Ceci Billings MD [address] [place] [address] Migraine without aura, not refractory Social History [...] Description 06/19/2025 9:00 AM EST Office Visit [facility] [address] [place] [address] Ceci Billings MD [address] [place] [address] documented as of this encounter Visit Diagnoses Diagnosis Migraine without aura, not refractory documented in this encounter Additional Health Concerns Assessment Noted Time PHQ-9 Depression Total Score: 10 025 9:44 AM EST documented as of this encounter Care Teams Container Washer Machine Relationship Specialty Start Date End Date Ceci Billings MD [address] [place] [address] [phone] PCP - General Family Medicine 06/02/20 documented as of this encounter
--- OUTSIDE RECORDS SUMMARY | 2025-03-26 06:46 | XMS_ITS | Encounter Summary ---
Author Organization [employer] Address [address] [facility] [facility] [address] [place] [address] Care Team Providers Care Meat Grinder Name Role Phone Ceci Billings MD Primary Care Provide r Reason for Visit * Reason Onset Date Comments Med Refill 10/02/2024 Encounter Details Date Type Department Care Team (Late st Contact Info) Description 10/02/2024 Refill [facility] 230 [place] [address] Ceci Billings MD 230 [place] [address] Morbid obesity (CMS/HCC) Social History Tobacco Use [...] Description 06/19/2025 9:00 AM EST Office Visit [facility] [address] [place] [address] Ceci Billings MD [address] [place] [address] documented as of this encounter Visit Diagnoses Diagnosis Morbid obesity (CMS/HCC) (HCC) Morbid obesity documented in this encounter Additional Health Concerns Assessment Noted Time PHQ-9 Depression Total Score: 0 09/08/19 9:03 AM EDT documented as of this encounter Care Teams Meat Grinder Relationship Specialty Start Date End Date Ceci Billings MD [address] [place] [address] [phone] PCP - General Family Medicine 06/02/20 documented as of this encounter
--- OUTSIDE RECORDS SUMMARY | 2025-03-26 06:46 | XMS_ITS | Encounter Summary ---
Author Organization [employer] Address [address] [facility] [address] [place] [address] Care Team Providers Care Certified Medical Asst Name Role Phone Ceci Billings MD Primary Care Provide r Reason for Visit * Reason Onset Date Comments Medication Question 03/12/2024 Encounter Details Date Type Department Care Team ([facility] Contact Info) Description 03/12/2024 Telephone [facility] [address] [place] [address] Ceci Billings MD [address] [place] [address] Medication Question Social History Tobacco Use Types [...] questions on med PA . Callback number [phone] documented in this encounter Plan of Treatment Upcoming Encounters Date Type Department Care Team (Late st Contact Info) Description 06/19/2025 9:00 AM EST Office Visit [facility] [address] [place] [address] Ceci Billings MD [address] [place], [place] [phone] documented as of this encounter Visit Diagnoses Not on filedocumented in this encounter Additional Health Concerns Assessment Noted Time PHQ-9 Depression Total Score: 0 10/05/19 24 9:33 AM EDT documented as of this encounter Care Teams Certified Medical Asst Relationship Specialty Start Date End Date Ceci Billings MD 230 [place] [address] PCP - General Family Medicine 06/02/20 documented as of this encounter
--- OUTSIDE RECORDS SUMMARY | 2025-03-26 06:46 | XMS_ITS | Encounter Summary ---
Author Organization [employer] Address [address] [facility] [address] [place] [address] Care Team Providers Care Carpet Winder Name Role Phone Ceci Billings MD Primary Care Provide r Reason for Visit * Reason Comments Med Refill Encounter Details Date Type Department Care Team (Late st Contact Info) Description 11/30/2023 Refill [facility] [address] [place] [address] Ceci Billings MD [address] [place] [address] Muscle spasm Social History Tobacco Use Types [...] Description 06/19/2025 9:00 AM EST Office Visit [facility] [address] [place] [address] Ceci Billings MD [address] [place] [address] documented as of this encounter Visit Diagnoses Diagnosis Muscle spasm Spasm of muscle documented in this encounter Additional Health Concerns Assessment Noted Time PHQ-9 Depression Total Score: 0 10/05/19 24 9:33 AM EDT documented as of this encounter Care Teams Carpet Winder Relationship Specialty Start Date End Date Ceci Billings MD 230 [place] [address] PCP - General Family Medicine 06/02/20 documented as of this encounter
--- OUTSIDE RECORDS SUMMARY | 2025-03-26 06:46 | XMS_ITS | Encounter Summary ---
Author Organization [employer] Address [address] [facility] [address] [place] [address] Care Team Providers Care Sql Server Consultant Name Role Phone Ceci Billings MD Primary Care Provide r Encounter Details Date Type Department Care Team (Late st Contact Info) Description 07/27/2023 Orders Only [facility] MED[facility]INE [address] [place] [address] Ceci Billings MD [address] [place] [address] Class 3 severe obesity with serious comorbidity [...] Description 06/19/2025 9:00 AM EST Office Visit [facility] 230 [place] [address] Ceci Billings MD [address] [place] [address] documented as of this encounter Visit Diagnoses Diagnosis Class 3 severe obesity with serious comorbidity and body mass index (BMI) of 45.0 to 49.9 in adult, unspecified obesity type (HCC)- Primary documented in this encounter Additional Health Concerns Assessment Noted Time PHQ-9 Depression Total Score: 5 07/07/19 24 10:12 AM EDT documented as of this encounter Care Teams Sql Server Consultant Relationship Specialty Start Date End Date Ceci Billings MD [address] [place] [address] PCP - General Family Medicine 06/02/20 documented as of this encounter
--- OUTSIDE RECORDS SUMMARY | 2025-03-26 06:46 | XMS_ITS | Encounter Summary ---
Author Organization [employer] Address [address] [facility] [address] [place] [address] Care Team Providers Care Cyber Systems Administrator Name Role Phone Ceci Billings MD Primary Care Provide r Reason for Visit * Reason Comments Med Refill Encounter Details Date Type Department Care Team (Late st Contact Info) Description 01/03/2024 Refill [facility] [address] [place] [address] Ceci Billings MD [address] [place] [address] Social History Tobacco Use Types Packs/Day Years [...] Description 06/19/2025 9:00 AM EST Office Visit [facility] [address] [place] [address] Ceci Billings MD 230 [place] [address] documented as of this encounter Visit Diagnoses Not on filedocumented in this encounter Additional Health Concerns Assessment Noted Time PHQ-9 Depression Total Score: 0 10/05/19 24 9:33 AM EDT documented as of this encounter Care Teams Cyber Systems Administrator Relationship Specialty Start Date End Date Ceci Billings MD 230 [place] [address] PCP - General Family Medicine 06/02/20 documented as of this encounter
--- OUTSIDE RECORDS SUMMARY | 2025-03-26 06:46 | XMS_ITS | Encounter Summary ---
Author Organization [employer] Address [address] [place] [address] 7[address] [place] [address] Care Team Providers Care Linotype Machinist Apprentice Name Role Phone Ceci Billings MD Primary Care Provide r Encounter Details Date Type Department Care Team (Late st Contact Info) Description 05/27/2022 Telephone [facility] [address] [place] [address] Ceci Billings MD [address] [place] [address] [phone] Social History Tobacco Use Types Packs/Day Years [...] Description 06/19/2025 9:00 AM EST Office Visit [facility] [address] [place] [address] Ceci Billings MD [address] [place], [place] [phone] documented as of this encounter Visit Diagnoses Not on filedocumented in this encounter Care Teams Linotype Machinist Apprentice Relationship Specialty Start Date End Date Ceci Billings MD [address] [place] [address] PCP - General Family Medicine 06/02/20 documented as of this encounter
--- OUTSIDE RECORDS SUMMARY | 2025-03-26 06:46 | XMS_ITS | Encounter Summary ---
Author Organization [employer] Address [address] [facility] [address] [place] [address] Care Team Providers Care Meat Manager Name Role Phone Ceci Billings MD Primary Care Provide r Encounter Details Date Type Department Care Team (Late st Contact Info) Description 07/03/2024 Orders Only [facility] [address] [place] [address] Provider, MD Chito Social History Tobacco Use [...] EST Office Visit [facility] [address] [place] [address] Ceci Billings MD [address] [place] [address] documented as of this encounter Procedures Procedure [...] PM EDT Narrative 07/20/2024 4:18 PM EDT [facility] [address] [place] [address] Mammography Report Signed Patient: Windy Mcfarlane MR# : [id number] : 1975 Acct:[id number] Age/Sex: 48 / F ADM Date: 07/12/24 Loc: HO.MAMMO Attending Dr: Ceci Peacock MD Ordering Physician: Ceci Billings MD Results: 2Benign Findings Date of Service: 07/12/24 Follow Up: 1 Year From Orig inal Mammogram Procedure(s): MM tomosynthesis screening BI Accession Number(s): [id number] cc: Ceci Billings MD EXAMINATION: MM SCREENING [...] 07/20/24 1614 DD/ 1345 TD/TT: 07/12/24 1401 Supervisor Assembly Department: Procedure Note Donotuseinterpreter, Image - 07/20/2024 [place] [facility] [address] [place] [address] Mammography Report Signed Patient: Windy McfarlaneMR# : [id number] : 1975Acct:[id number] Age/Sex: 48 / FADM Date: 07/12/24 Loc: HO.MAMMO Attending Dr: Ceci Peacock MD Ordering Physician: Ceci Billings MDResults: 2Benign Findings Date of Service: 07/12/24Follow Up: 1 Year From Orig inal Mammogram Procedure(s): MM tomosynthesis screening BI Accession Number(s): [id number] cc: Ceci Billings MD EXAMINATION: MM SCREENING [...] 07/20/24 1614 DD/ 1345 TD/TT: 07/12/24 1401 Supervisor Assembly Department: us Ceci Peacock MD IMG BI PROCEDURES Fin al Result * Bacterial Vaginosis (07/03/2024 12:00 AM EDT) TRICHOMONAS VAGINALIS DETECTION BY PCR NOT DETECTED Not Detect [facility] BACTERIAL VAGINOSIS DETECTION BY PCR NEGATIVE Negative [facility] Comment:The BV organism targ [...] DETECTION BY PCR NOT DETECTED Not Detect [facility] Jeni glab krusei PCR NOT DETECTED Not Detect [facility] 07/03/2024 07/03/2024 us Generic External Data Provider LAB MICROBIOLOGY - GENERAL ORDERABLES Final Result [facility] [address] [place] [address] [phone] * Chlamydia/N. Gonorrhoeae RNA, TMA, Urogenitial (07/03/2024 12:00 AM EDT) CT PCR NOT DETECTED Not Detect. [facility] Comment:A not detected test [...] psychologicalconsequences. NG PCR NOT DETECTED Not Detect. [facility] Comment:A not detected test [...] medical, social or psychologicalconsequences. 07/03/2024 07/03/2024 Narrative [facility] - 07/04/2024 5:16 AM EDT Vaginal us Generic External Data Provider LAB MICROBIOLOGY - GENERAL ORDERABLES Final Result [facility] [address] [place] [address] [phone] * Colonoscopy (08/23/2023 11:53 AM EDT) us Historical Provider HEALTH MAINTENANCE Final Result documented in this encounter Visit Diagnoses Not on filedocumented in this encounter Additional Health Concerns Assessment Noted Time PHQ-9 Depression Total Score: 0 10/05/19 24 9:33 AM EDT documented as of this encounter Care Teams Meat Manager Relationship Specialty Start Date End Date Ceci Billings MD [address] [place] [phone] PCP - General Family Medicine 06/02/20 documented as of this encounter
--- OUTSIDE RECORDS SUMMARY | 2025-03-26 06:46 | XMS_ITS | Encounter Summary ---
Author Organization [employer] Address [address] [facility] [address] [place] [address] Care Team Providers Care Etcher Machine Name Role Phone Ceci Billings MD Primary Care Provide r Reason for Visit * Reason Comments Med Refill Encounter Details Date Type Department Care Team (Late st Contact Info) Description 03/23/2025 Refill [facility] [address] [place] [address] Ceci Billings MD [address] [place] [address] Social History Tobacco Use Types Packs/Day Years [...] Description 06/19/2025 9:00 AM EST Office Visit [facility] [address] [place] [address] Ceci Billings MD [address] [place] [address] documented as of this encounter Visit Diagnoses Not on filedocumented in this encounter Additional Health Concerns Assessment Noted Time PHQ-9 Depression Total Score: 10 025 9:44 AM EST documented as of this encounter Care Teams Etcher Machine Relationship Specialty Start Date End Date Ceci Billings MD [address] [place] [phone] PCP - General Family Medicine 06/02/20 documented as of this encounter
--- OUTSIDE RECORDS SUMMARY | 2025-03-26 06:46 | XMS_ITS | Encounter Summary ---
Author Organization [employer] Address [address] [facility] 7t [place] [address] Care Team Providers Care Loan Officer Name Role Phone Ceci Billings MD Primary Care Provide r Reason for Visit * Reason Comments Med Refill Encounter Details Date Type Department Care Team (Late st Contact Info) Description 06/22/2024 Refill [facility] 230 [place] [address] Ceci Billings MD [address] [place] [address] Migraine without aura, not refractory Social History [...] Description 06/19/2025 9:00 AM EST Office Visit [facility] [address] [place] [address] Ceci Billings MD [address] [place] [phone] documented as of this encounter Visit Diagnoses Diagnosis Migraine without aura, not refractory documented in this encounter Additional Health Concerns Assessment Noted Time PHQ-9 Depression Total Score: 0 10/05/19 24 9:33 AM EDT documented as of this encounter Care Teams Loan Officer Relationship Specialty Start Date End Date Ceci Billings MD [address] [place] [address] [phone] PCP - General Family Medicine 06/02/20 documented as of this encounter
--- OUTSIDE RECORDS SUMMARY | 2025-03-26 06:46 | XMS_ITS | Clinical Summary ---
Author Organization [employer] Address [address] [place] [address] 7[address] [place] [address] Care Team Providers Care Assembly Line Inspector Name Role Phone Ceci Billings MD [...] mouth 2 times daily. 360 tablet 1 025 Active acetaminophen (Tylenol 8 Hour) 650 MG ER tabletIndicatio ns:Lumbar radiculopathy, chronic TAKE 2 TABLETS(1300 MG) BY MOUTH EVERY 8 HOURS NEEDED FOR MILD PAIN. DO NOT CRUSH, CHEW, OR SPLIT 40 tablet 025 Active zolpidem (Ambien) 10 MG tabletIndicatio ns:Insomnia, unspecified type TAKE 1 TABLET BY MOUTH AT BEDTIME 30 tablet 1 025 Active dicyclomine (Bentyl) 20 MG tabletIndicatio [...] TIMES DAILY 90 tablet 2 025 Active propranolol (Inderal) 20 MG tabletIndicatio ns:Migraine without aura, not refractory TAKE 1 TABLET(20 MG) BY MOUTH EVERY DAY 90 tablet 1 025 Active fexofenadine (Allergy Relief) 180 MG tablet TAKE 1 TABLET BY MOUTH EVERY DAY NEEDED 90 tablet 025 Active propranolol (Inderal) 20 MG tabletIndicatio ns:Migraine without aura, not refractory TAKE 1 TABLET(20 MG) BY MOUTH EVERY DAY 90 tablet 1 025 2024 Discontinued fexofenadine (Allergy Relief) 180 MG tablet TAKE 1 TABLET BY MOUTH EVERY DAY NEEDED 90 tablet 025 2024 Discontinued(R eorder (will not trigger notification to Pharmacy)) gabapentin (Neurontin) 600 MG tabletIndicatio ns:Lumbar radiculopathy, [...] to 20 mmHg, continue to follow-up with occupational health specialist Mild persistent asthma 03/01/2016 Osteopenia 03/01/2016 Allergic [...] Encounters Date Type Department Care Team Description 03/23/2025 Refill [facility] [address] [place] [address] [phone] Ceci Billings MD 03/22/[address] [address] Ceci Billings MD Migraine without aura, not refractory 03/19/2025 9:00 AM EST Office Visit [address] [address] Ceci Billings MD Venous insufficiency (Primary Dx); Dietary counseling; Exercise counseling; Class 3 severe obesity due to excess calories with serious comorbidity and body mass index (BMI) of 40.0 to 44.9 in adult (HCC); Lumbar radiculopathy, chronic; Moderate persistent asthma, unspecified whether complicated 03/19/2025 Travel 03/18/[address] [phone] Ceci Billings MD Chart Prep 03/13/[address] [phone] Ceci Billings MD Lumbar radiculopathy, chronic 03/11/2025 Patient Outreach [address] [phone] Ceci Billings MD Pre-visit Planning ((Unable to reach for PVP screening, LVM) to be completed in office ) 01/25/2025 Orders Only [facility] External Provider, [facility] 01/04/[address] [address] Ceci Billings MD telephone call 12/28/2024 Telephone [facility] [address] [place] [address] Ceci Billings MD Prior Authorization 12/25/[address] [phone] Ceci Billings MD 12/25/2024 Orders Only [facility] [address] [place] [address] Ceci Billings MD from Last 3 Months Immunizations Immunization Administration [...] Description 06/19/2025 9:00 AM EST Office Visit [facility] [address] [place] [address] Ceci Billings MD [address] [place] [address] Health Maintenance Due Date Last Done Comments [...] Procedure Name Priority Date/Time Associated Diagnosis Comments [facility] US LOWER EXTREMITY VENOUS DUPLEX BILATERAL Routine [...] Recently Relevant to Health Maintenance Results * [facility] US Lower Extremity Venous Duplex Bilateral (01/25/2025 9:01 AM EDT) 01/25/2025 9:01 AM EDT Narrative [facility] - 01/25/2025 10:15 AM EDT [address] [address] Ultrasound Report Signed Patient: Windy Mcfarlane MR# : [id number] : 1975 Acct:[id number] Age/Sex: 49 / F ADM Date: 01/25/25 Loc: HO.US Attending Dr: Elvia MIRAMONTES Ordering Physician: Elvia Winslow Date of Service: 01/25/25 Procedure(s): US venous duplex LE BI Accession Number(s): [id number] cc: Ceci Billings MD; Elvia Winslow Reason [...] Pacheco MD in OV> 01/25/25 1012 DD/ 0 TD/TT: 01/25/25926 Millinery Designer: Procedure Note Donotleeinterpreter, Image - 01/25/[address] [address] Ultrasound Report Signed Patient: Windy McfarlaneMR# : [id number] : 1975Acct:[id number] Age/Sex: 49 / FADM Date: 01/25/25 Loc: HO.US Attending Dr: Elvia MIRAMONTES Ordering Physician: Elvia Winslow Date of Service: 01/25/25 Procedure(s): US venous duplex LE BI Accession Number(s): [id number] cc: Ceci Billings MD; Elvia Winslow Reason [...] Bill Pacheco MDin OV> 01/25/25 1012 DD/ 0 TD/TT: 01/25/25926 Millinery Designer: us [facility] External Provider CV VASC ULAR PROCEDURES Final Result Performing Organization Address City/[facility]/ZIP Co de Phone Number [facility] [address] [place] [address] * Lipid Panel, Standard (08/07/2024 2:25 PM EDT) Triglycerides 63 <150 mg/dL [facility] Comment:Desirable Triglyceri de: less than 150 mg/dLBorderline High Triglyceride 150-199 mg/dLHigh Triglyceride: 200-499 mg/dLVery High Triglyceride: greater than or equal to 5OO mg/dL Cholesterol 154 <200 mg/dL [facility] Comment:Desirable Cholestero l: less than 200 mg/dLBorderline High Cholesterol: 200-239 mg/dLHigh Cholesterol: greater than 239 mg/dL LDL Cholesterol Calculated 92 <100 mg/dL [facility] Comment:Desirable LDL: less than 100 mg/dLNear Optimal/Above Optimal LDL: 110- 129 mg/dLBorderline High LDL: 130-159 mg/dLHigh LDL: 160-189 mg/dLVery High LDL: greater than or equal to 190 mg/dL HDL Cholesterol 50 >40 mg/dL [facility] Comment:Desirable HDL: great er than 40 mg/dL Note: This HDL assay may give artificially low results in patients with liver disease. Blood Venous blood specimen / Unknown 08/07/2024 2:25 PM EDT 08/07/2024 4:10 PM EDT us Ceci Peacock MD LAB BLOOD ORDERABLES Final Result Performing Organization Address [facility]/ZIP Co de Phone Number [facility] [address] [place] [address] [phone] * BI Mammogram Screening Tomosynthesis Bilateral (07/12/2024 1:45 PM EDT) Anatomical Region Laterality Modality Breast Bilateral Mammography 07/12/2024 1:45 PM EDT Narrative 07/20/2024 4:18 PM EDT [facility] [place] [address] Mammography Report Signed Patient: Windy Mcfarlane MR# : [id number] : 1975 Acct:[id number] Age/Sex: 48 / F ADM Date: 07/12/24 Loc: HO.MAMMO Attending Dr: Ceci Peacock MD Ordering Physician: Ceci Billings MD Results: 2Benign Findings Date of Service: 07/12/24 Follow Up: 1 Year From [facility] Mammogram Procedure(s): MM tomosynthesis screening BI Accession Number(s): [id number] cc: Ceci Billings MD EXAMINATION: MM SCREENING [...] 07/20/24 1614 DD/ 1345 TD/TT: 07/12/24 1401 Millinery Designer: Procedure Note Donotuseinterpreter, Image - 07/20/2024 [facility] [address] [place] [address] Mammography Report Signed Patient: Windy McfarlaneMR# : [id number] : 1975Acct:[id number] Age/Sex: 48 / FADM Date: 07/12/24 Loc: HO.MAMMO Attending Dr: Ceci Peacock MD Ordering Physician: Ceci Billings MDResults: 2Benign Findings Date of Service: 07/12/24Follow Up: 1 Year From Orig inal Mammogram Procedure(s): MM tomosynthesis screening BI Accession Number(s): [id number] cc: Ceci Billings MD EXAMINATION: MM SCREENING [...] 07/20/24 1614 DD/ 1345 TD/TT: 07/12/24 1401 Millinery Designer: Ceci Peacock MD IMG BI PROCEDURES Fin al Result * PAP/HPV (07/03/2024 11:57 AM EDT) Historical Provider HEALTH MAINTENANCE Final Result * Hm Colonoscopy (08/23/2023 11:53 AM EDT) Historical Provider HEALTH MAINTENANCE Final Result * HPV E6/E7 RFLX JESSICA 16 18/45 (11/09/2021 2:40 PM EDT) HPV mRNA E6/E7 rflx Not Detected Not Detected [facility] Comment: Methodology: High School Social Studies Teacher-Mediated Amplification This assay detects E6/E7 viral messenger RNA (mRNA) from 14 high-risk HPV types (16,18,31,33,35,39,45,51,52,56,58,59,66,68). Cervical sources are required for HPV testing. If a vaginal source from a patient who has had a total hysterectomy with removal of cervix was submitted, please contact the testing laboratory for alternative testing options. For additional information, please refer to http://education.[employer]/faq/UQR534j6 (This link if provided for information/ educational purposes only.) THIS TEST WAS PERFORMED AT: [facility] [address] [place] [address],[place] [address] TIN DICKEY MD 11/09/2021 2:40 PM EDT [facility] [place] HISTORICAL/NON ORDERABLE LABS Fi nal Result [facility] [address] from Last 3 Months or Most Recently Relevant to Health Maintenance Insurance [place] [phone] [facility] Care Teams Assembly Line Inspector Relationship Specialty Start Date End Date Ceci Billings MD [address] [place] [phone] PCP - General Family Medicine 06/02/20
--- OUTSIDE RECORDS SUMMARY | 2025-03-26 06:46 | XMS_ITS | Encounter Summary ---
Author Organization [employer] Address [address] [place] [address] Care Team Providers Care Scientist Electronics Name Role Phone Ceci Billings MD Primary Care Provide r Reason for Visit * Reason Comments Med Refill Encounter Details Date Type Department Care Team (Late st Contact Info) Description 07/18/2024 Refill [facility] [address] [place] [address] Ceci Billings MD [address] [place] [address] Social History Tobacco Use Types Packs/Day Years [...] Description 06/19/2025 9:00 AM EST Office Visit [facility] [address] [place] [address] Ceci Billings MD [address] [place] [address] documented as of this encounter Visit Diagnoses Not on filedocumented in this encounter Additional Health Concerns Assessment Noted Time PHQ-9 Depression Total Score: 0 10/05/19 24 9:33 AM EDT documented as of this encounter Care Teams Scientist Electronics Relationship Specialty Start Date End Date Ceci Billings MD [address] [place] [address] PCP - General Family Medicine 06/02/20 documented as of this encounter
--- OUTSIDE RECORDS SUMMARY | 2025-03-26 06:46 | XMS_ITS | Encounter Summary ---
Author Organization [employer] Address [address] 7t [place] [address] Care Team Providers Care Lighting Engineering Technician Name Role Phone Ceci Billings MD Primary Care Provide r Encounter Details Date Type Department Care Team (Late st Contact Info) Description 12/25/2024 Orders Only [facility] [address] [place] [address] Ceci Billings MD [address] [place] [address] Social History Tobacco Use Types Packs/Day Years [...] Description 06/19/2025 9:00 AM EST Office Visit [facility] [address] [place] [address] Ceci Billings MD [address] [place] [address] documented as of this encounter Visit Diagnoses Not on filedocumented in this encounter Additional Health Concerns Assessment Noted Time PHQ-9 Depression Total Score: 4 12/21/19 25 11:24 AM EDT documented as of this encounter Care Teams Lighting Engineering Technician Relationship Specialty Start Date End Date Ceci Billings MD [address] [place] [address] PCP - General Family Medicine 06/02/20 documented as of this encounter
--- OUTSIDE RECORDS SUMMARY | 2025-03-26 06:46 | XMS_ITS | Encounter Summary ---
Author Organization [employer] Address [address] [place] [address] 7t [place] [address] Care Team Providers Care Logistics Analytics Manager Name Role Phone Ceci Billings MD Primary Care Provide r Reason for Visit * Reason Comments Med Refill Encounter Details Date Type Department Care Team (Late Contact Info) Description 12/02/2022 Refill [facility] [address] [place] [address] Name, MD Yaniv [address] [place] [address] Insomnia, unspecified type Social History Tobacco Use [...] Description 06/19/2025 9:00 AM EST Office Visit [facility] [address] [place] [address] Ceci Billings MD [address] [place] [address] documented as of this encounter Visit Diagnoses Diagnosis Insomnia, unspecified type documented in this encounter Additional Health Concerns Assessment Noted Time PHQ-9 Depression Total Score: 0 08/07/19 23 9:07 AM EDT documented as of this encounter Care Teams Logistics Analytics Manager Relationship Specialty Start Date End Date Ceci Billings MD [address] [place] [address] PCP - General Family Medicine 06/02/20 documented as of this encounter
--- OUTSIDE RECORDS SUMMARY | 2025-03-26 06:46 | XMS_ITS | Encounter Summary ---
Author Organization [employer] Address [address] [facility] 7t [place] [address] Care Team Providers Care Batter Mixer Name Role Phone Ceci Billings MD Primary Care Provide r Reason for Visit * Reason Onset Date Comments Med Refill 10/31/2024 Encounter Details Date Type Department Care Team (Late st Contact Info) Description 10/31/2024 Refill [facility] [address] [place] [address] Ceci Billings MD [address] [place] [address] Multiple joint pain Social History Tobacco Use [...] 9:00 AM EST Office Visit [facility] [address] [place] [address] Ceci Billings MD [address] [place] [address] documented as of this encounter Visit Diagnoses Diagnosis Multiple joint pain Pain in joint, multiple sites documented in this encounter Additional Health Concerns Assessment Noted Time PHQ-9 Depression Total Score: 0 09/08/19 25 9:03 AM EDT documented as of this encounter Care Teams Batter Mixer Relationship Specialty Start Date End Date Ceci Billings MD [address] [place] [address] PCP - General Family Medicine 06/02/20 documented as of this encounter
--- OUTSIDE RECORDS SUMMARY | 2025-03-26 06:46 | XMS_ITS | Encounter Summary ---
Author Organization [employer] Address [address] [facility] 7t [place] [address] Care Team Providers Care Applications Architect Name Role Phone Ceci Billings MD Primary Care Provide r Reason for Visit * Reason Comments Med Refill Encounter Details Date Type Department Care Team ([facility] Contact Info) Description 04/30/2022 Refill [facility] [address] [place] [address] Jesús Vale MD [address] [place] [address] Influenza-like illness Social History Tobacco Use Types [...] Upcoming Encounters Date Type Department Care Team ([facility] Contact Info) Description 06/19/2025 9:00 AM EST Office Visit [facility] [address] [place] [address] Ceci Billings MD [address] [place], [place] [phone] documented as of this encounter Visit Diagnoses Diagnosis Influenza-like illness documented in this encounter Care Teams Applications Architect Relationship Specialty Start Date End Date Ceci Billings MD [address] [place], [place] [phone] PCP - General Family Medicine 06/02/20 documented as of this encounter
--- OUTSIDE RECORDS SUMMARY | 2025-03-26 06:46 | XMS_ITS | Encounter Summary ---
Author Organization [employer] Address [address] 7[address] [place] [address] Care Team Providers Care Bulldozer Press Operator Name Role Phone Ceci Billings MD Primary Care Provide r Encounter Details Date Type Department Care Team ([facility] Contact Info) Description 04/23/2024 Orders Only [facility] [address] [place] [address] Ceci Billings MD [address] [place] [address] Social History Tobacco Use Types Packs/Day Years [...] Description 06/19/2025 9:00 AM EST Office Visit [facility] [address] [place] [address] Ceci Billings MD [address] [place] [address] documented as of this encounter Visit Diagnoses Not on filedocumented in this encounter Additional Health Concerns Assessment Noted Time PHQ-9 Depression Total Score: 0 10/05/19 24 9:33 AM EDT documented as of this encounter Care Teams Bulldozer Press Operator Relationship Specialty Start Date End Date Ceci Billings MD [address] [place] [address] PCP - General Family Medicine 06/02/20 documented as of this encounter
--- OUTSIDE RECORDS SUMMARY | 2025-03-26 06:46 | XMS_ITS | Encounter Summary ---
Author Organization [employer] Address [address] 7[address] [place] [address] Care Team Providers Care Chart Snatcher Name Role Phone Ceci Billings MD Primary Care Provide r Encounter Details Date Type Department Care Team ([facility] Contact Info) Description 10/16/2024 Telephone [facility] [address] [place] [address] Ceci Billings MD [address] [place] [address] Social History Tobacco Use Types Packs/Day Years [...] 06/19/2025 9:00 AM EST Office Visit [facility] [address] [place] [address] Ceci Billings MD [address] [place] [address] documented as of this encounter Visit Diagnoses Not on filedocumented in this encounter Additional Health Concerns Assessment Noted Time PHQ-9 Depression Total Score: 0 09/08/19 25 9:03 AM EDT documented as of this encounter Care Teams Chart Snatcher Relationship Specialty Start Date End Date Ceci Billings MD [address] [place] [phone] PCP - General Family Medicine 06/02/20 documented as of this encounter
== END 2025-03-26 06:43 | disposition home or self-care (01) ==
LOC: CF 06:42
PROVIDERS: Visit Provider Anesthesiology
DX: M17.11 Unilateral primary osteoarthritis, right knee (principal)
CPT/HCPCS: 64454; J2003; J2795

== ENCOUNTER 2025-03-26 07:46 | Outpatient (AMB) | payer MEDICARE, MEDICAID, SELFPAY ==
[2025-03-26 07:53] VITALS: BP 98/59; PULSE 76; RESP 16; O2SAT 99; BMI 36.8
--- NOTE | 2025-03-26 07:53 | A.OFFVIS_ITS ---
Vital Signs 03/26/25 07:53 03/26/25 08:20 Height 5 ft 8 in Weight 242 lb BMI 36.8 BP 98/59 L 95/58 L Blood Pressure Location Lt brachial Lt brachial Position Sitting Sitting Respiration 16 16 Pulse 76 77 Pulse Source Pulse Oximeter Pulse Oximeter Pulse Oximetry (%) 99 100 Oxygen Delivery Method Room Air Room Air Intake Visit Reasons: Right Dx GNB/ Ativan Allergies ciprofloxacin (From CIPRO) Allergy (Severe, Verified 03/01/25 13:11) GI PAIN vancomycin Allergy (Severe, Verified 03/01/25 13:11) Anaphylaxis [facility] Medical History COVID Somnolence, daytime TANA (obstructive sleep apnea) Allergic rhinitis Bronchial asthma Trigger finger Dysuria Obesity, morbid, BMI 40.0-49.9 Encounter for Papanicolaou smear for cervical cancer screening Asthma Insomnia Crohn's disease Surgical History History of removal of laparoscopic gastric banding device Hx of hand surgery History of carpal tunnel surgery Hx of laparoscopic gastric banding Hx of breast reduction, elective Family History Father HIV (human immunodeficiency virus infection) Mother Hypertension Maternal Grandmother Diabetes mellitus Maternal Grandfather Hypertension Lymphoma Paternal Grandfather No problems noted. 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 ? Patient came to the operating room after informed consent was obtained.? She was positioned supine on the operating table. Time-out procedure was performed delineating correct site and side of the injections, patient's name and date of , allergies, need for antibiotics, risk of fire. Patient's knees as well as anterior surface of lower thigh as well as anterior surface of upper shins were prepped with ChloraPrep and draped with sterile towels.? Sterilely draped C-arm was brought over the operating field and sq picture of the patient's right knee was obtained on the screen. The point of interest were delineated as the confluence of the silhouettes of the metaphysis and diaphysis medial and lateral of the femoral bone, as well as the confluence of the silhouette of the diaphysis and metaphysis of the medial tibial bone.? The point of interest projection to the skin were injected with small amount of Lidocaine and after that 22 gauge 3&1/2 spinal needles were inserted through the skin. The needles were driven toward the point of interest on anterior posterior and lateral views.? When on lateral views the needles were positioned with the tips in the projection of mid shaft of the bone2 cc of ropivacaine was injected into each position.? Upon completion of the injections needles were removed sterile Band-Aids were applied. Patient tolerated procedure well he was awakened and transferred for recovery she recovered uneventfully and went home without immediate complication Orders: Orders FL guidance in treatment room Today M17.11 - Unilateral primary osteoarthritis, right knee Medications: New lorazepam (Ativan) Take 30 minutes prior to arrival to procedure 1 mg PO ONCE 1 tab 0RF anxiety Coding Level of Care Code Procedure Only Diagnoses Right knee pain M25.561
[2025-03-26 08:20] VITALS: BP 95/58; PULSE 77; RESP 16; O2SAT 100
== END 2025-03-26 08:20 | disposition home or self-care (01) ==
LOC: HO.PMCPRC 07:46
PROVIDERS: PCP Internal Medicine; Visit Provider Anesthesiology
DX: M25.561 Pain in right knee (principal)
CPT/HCPCS: 64454

== ENCOUNTER 2025-04-02 17:59 | Observation (INO) | payer MEDICARE, MEDICAID, SELFPAY ==
--- OUTSIDE RECORDS SUMMARY | 2024-02-07 04:50 | XMS_ITS ---
Author Organization [facility] Address [address] [facility] [address] [place] [address] Care Team Providers Care Director Of Food And Beverage Services Name Role Phone Ceci Blackburn M.D. Primary Care Provider Emerson Schwartz [phone] REASON FOR VISIT Patient presents today for GERD, CROHN'S. Encounters Encounter Location Date Provider Diagnosis [facility] [address] [facility] [address] [place] [phone] 02/07/2024 Emerson Canales Plan Of Treatment Next Appt Details Provider Name:Emerson Canales , 07/30/2025 09:10:00 AM, [address] [place] [address], Suite [facility], [place], [address], Progress Notes * STEPHIE DORSEYDOB: 7 (49 yo F)Acc No.[id number]:02/07/2024 Progress Notes Patient: Halley MACKSaraiCHRISTIANSTEPHIE Provider: Olu Canales MD :1975 A ge:48 Y S ex:Female Date:02/07/2024 Address:[address] [place] [place], [place] Pcp:Ceci Blackburn M.D. Subjective: * Chief Complaints: * P atient presents today for GERD, CROHN'S. * The named appointment provid er may or may not be the originator of this progress note, and it is not deemed complete until electronically signed by the appointment provider. Sign off status: Pending * Provider: Olu Canales MD Date: 1 Generated for Arpit ribeiro/Enmanuel/Daniel on: 1 06/03/2024 11:16 PM EST
[2025-04-02] VITALS (8 sets, daily range): BP systolic 104–130; BP diastolic 60–95; PULSE 85–220; RESP 18–22; TEMP 37; O2SAT 98–100; BMI 37.8
--- NOTE | 2025-04-02 18:05 | ECG_ITS ---
Test Reason : SVT Blood Pressure : */* mmHG Vent. Rate : 207 BPM Atrial Rate : * BPM P-R Int : * ms QRS Dur : 68 ms QT Int : 230 ms P-R-T Axes : * -27 21 degrees QTcB Int : 427 ms Supraventricular tachycardia Minimal voltage criteria for LVH, may be normal variant ( R in aVL ) Nonspecific ST and T wave abnormality Abnormal ECG When compared with ECG of Supraventricular tachycardia has replaced Normal sinus rhythm Vent. rate has increased by [address] now depressed in Inferior leads ST now depressed in Anterolateral leads Nonspecific T wave abnormality has replaced inverted T waves in Inferior leads T wave inversion now evident in Lateral leads Referred By: Seb Winters Electronically Signed By: CHIQUIS REED MD
[2025-04-02] MEDS: Adenosine 6 MG/2 ML VIAL IVPUSH (18:16)
[2025-04-02] MEDS: Adenosine 6 MG/2 ML VIAL 12 MG IVPUSH (18:17)
--- NOTE | 2025-04-02 18:24 | ECG_ITS ---
Test Reason : REPEAT SVT Blood Pressure : */* mmHG Vent. Rate : 115 BPM Atrial Rate : 117 BPM P-R Int : 124 ms QRS Dur : 72 ms QT Int : 320 ms P-R-T Axes : 27 -28 -4 degrees QTcB Int : 442 ms Poor data quality Sinus tachycardia Minimal voltage criteria for LVH, may be normal variant ( R in aVL ) Nonspecific ST abnormality Abnormal ECG When compared with ECG of 02-Apr-2025 18:08, Sinus tachycardia has replaced Supraventricular tachycardia ST no longer depressed in Lateral leads Inverted T waves have replaced nonspecific T wave abnormality in Inferior leads Nonspecific T wave abnormality, worse in Anterior leads T wave inversion no longer evident in Lateral leads Referred By: Ck Weldon Electronically Signed By: CHIQUIS REED MD
--- NOTE | 2025-04-02 18:25 | ED_ITS ---
HPI - Arrhythmia/Palpitations General Chief Complaint: Arrhythmia/Palpitations Stated Complaint: Low Blood Pressure, palpitations, Shortness Of Preeti Time Seen by Provider: 04/02/25 18:12 Source: patient Mode of arrival: ambulatory Limitations: no limitations History of Present Illness ED Provider: DR. Weldon HPI narrative: 49-year-old female PMHx morbid obesity, sleep apnea, palpitatio, SVTs, patient came in for evaluation of palpitation, feeling dizzy and lightheadedness, patient tried to soak her face in the cold water which usually slow her heart rate but it did not this time, patient was on propanolol that was discontinued by her marketing and development coordinator for issue with low blood pressure on arrival patient had a heart rate of 200s in SVT patient was moved to room 10 was given 6 mg of adenosine with no resolution then was given 12 mg patient broke into a sinus rhythm at 115 BPM. that patient felt much better after. Related Data Home Medications ?Medication ?Instructions ?Recorded ?Confirmed ustekinumab 90 mg/mL subcutaneous 90 mg subcut Q8W 11/1203/19/25 syringe (Stelara) dicyclomine 20 mg tablet 20 mg PO TID 04/07/21 pantoprazole 40 mg tablet,delayed 40 mg PO DAILY 04/0703/19/25 release fexofenadine 180 mg tablet 180 mg PO DAILY 08/17/21 (Amada Allergy) levonorgestrel (Mirena) 20 mcg intrauterine DAILY 03/19/25 albuterol sulfate 2.5 mg/3 mL 2.5 mg inhalation QID TN N 05/20/22 03/19/25 (0.083 %) solution for nebulization Shortness Of Breat h clonazepam 0.5 mg tablet 0.5 mg PO DAILY PRN Shortnes s Of 05/20/22 03/19/25 Breath zolpidem 10 mg tablet (Ambien) 10 mg PO BEDTIME Insomn ia 04/07/23 03/19/25 fluticasone furoate 100 1 inh inhalation DAILY 11/2903/19/25 mcg/actuation blister powder for inhalation (Arnuity Ellipta) galcanezumab-gnlm 120 mg/mL 120 mg subcut QMONTH 11/2903/19/25 subcutaneous pen injector (Emgality Pen) sertraline 50 mg tablet 100 mg PO DAILY 11/29/24 docusate sodium 100 mg capsule 100 mg PO BID constipat ion 02/07/25 03/19/25 gabapentin 600 mg tablet 600 mg PO TID 02/07/2503/19 ondansetron HCl 8 mg tablet 8 mg PO Q8H PRN 02/07/25 1 05/19/24 polyethylene glycol 3350 17 g PO 02/07/25 03/19/25 gram/dose oral powder psyllium husk 0.4 gram capsule 0.8 g PO BID constipati on 02/07/25 03/19/25 (Reguloid (psyllium husk)) Previous Rx's ?Medication ?Instructions ?Recorded fluconazole 150 mg tablet 150 mg PO Q3D PRN reported [place] 09/04/21 infections #2 tabs cyclobenzaprine 10 mg tablet 10 mg PO TID PRN muscle s pasm #10 04/18/23 tabs fluticasone propionate 110 110 mcg inhalation BID WHEE ZING 10/31/23 mcg/actuation HFA aerosol inhaler AND SOB. 30 days #12 grams montelukast 10 mg tablet 10 mg PO BEDTIME ALL.RHINITI S 30 12/10/24 days #30 tabs blood pressure monitor #1 ea 02/22/25 lorazepam 1 mg tablet (Ativan) 1 mg PO ONCE anxiety #1 tab 03/20/25 nabumetone 500 mg tablet 500 mg PO BID #60 tabs 03/20 albuterol sulfate 90 mcg/actuation 2 puff PO Q4-6H PRN for wheezing 04/02/25 aerosol inhaler #8.5 grams Allergies Allergy/AdvReac Type Severity Reaction Status Date / Time ciprofloxacin (From CIPRO) Allergy Severe GI PAIN Verified 04/02/25 18:17 vancomycin Allergy Severe Anaphylaxis Verified 04/02/25 18:17 Review of Systems 2 Review of Systems: All other systems are reviewed and are negative Constitutional: Reports as per HPI and Reports no additional constitutional complaints Eyes: Reports as per HPI and Reports no additional eye complaints Reports system reviewed and no additional complaints, except as documented Cardiovascular: Reports as per HPI and Reports no additional cardiovascular complaints Respiratory: Reports as per HPI and Reports no additional respiratory complaints Gastrointestinal: Reports as per HPI and Reports no additional gastrointestinal complaints Genitourinary: Reports no additional female genitourinary complaints Musculoskeletal: Reports no additional musculoskeletal complaints Skin/Breast: Reports system reviewed and no additional complaints, except as docu Psychiatric: Reports no additional psychiatric complaints Endocrine: Reports no additional endocrine complaints Hematologic/Lymphatic: Reports no additional hematologic/lymphatic complaints Allergic/Immunologic: Reports no additional allergic/immunologic complaints Reports system reviewed and no additional complaints, except as documented and Reports Abnormal speech present [facility] Past Medical History Medical History COVID Somnolence, daytime TANA (obstructive sleep apnea) Allergic rhinitis Bronchial asthma Trigger finger Dysuria Obesity, morbid, BMI 40.0-49.9 Encounter for Papanicolaou smear for cervical cancer screening Asthma Insomnia Crohn's disease Surgical History History of removal of laparoscopic gastric banding device Hx of hand surgery History of carpal tunnel surgery Hx of laparoscopic gastric banding Hx of breast reduction, elective Family History Family History Father HIV (human immunodeficiency virus infection) Mother Hypertension Maternal Grandmother Diabetes mellitus Maternal Grandfather Hypertension Lymphoma Paternal Grandfather No problems noted. 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 Blood pressure elevated. Heart rate normal. Respiratory rate normal. Temperature normal. Oxygen saturation normal. Appearance: Anxious, Alert. Oriented X3. No acute distress. Head: Normal external exam. Normocephalic. Atraumatic. No Mckee signs noted. No raccoon eyes noted Eyes: PERRLA. EOMI. Conjunctiva and sclera normal. Eyelids normal. ENT: TM's Normal. Pharynx normal. Uvula midline. Moist mucous membranes. No trismus noted. No drooling noted. No muffled voice noted. Neck: Normal inspection. Neck supple. FROM. No adenopathy. Thyroid Normal. No meningeal signs. No neck mass noted. CVS: Normal heart rate and rhythm. Heart sound normal. No murmurs noted. Pulses normal throughout. Respiratory: No respiratory distress. Painless inspiration. Breath sounds normal. No wheezes/rales/rhonchi noted. Chest nontender. No accessory muscle usage noted or decreased air movement noted. Abdomen: Soft and nontender. Bowel sounds normal in all 4 quadrants. No distention noted. No organomegaly noted. No visible injury noted. Back: No CVA tenderness. Full range of motion noted. Skin: Skin warm and dry. Normal skin color. Normal skin turgor. No rashes/lesions/lacerations noted. Extremities: No lower extremity edema. Extremities exhibit normal range of motion. Extremities nontender. Neuro: Oriented X 3. Cranial nerve exam: II-XII are grossly intact No motor deficit. No sensory deficit. Reflexes normal. Course Reevaluation(s) Reevaluation #1: 49-year-old female with palpitation and SVT, converted into sinus tachycardia with 6+ 12 mg IV adenosine. Labs are unremarkable, patient was feeling anxious now feel better with Valium IV, Labs are unremarkable, no indication for ACS. blood pressure on the lower side, patient had a history of hypotension after using propanolol and was discontinued by her marketing and development coordinator, patient was instructed to follow-up with a marketing and development coordinator for further evaluation of managing her nonsustained SVT. Time: 21:00 Reevaluation #2: patient has no chest pain, VSS, heart rate is in the 80s, initially was SVT, serial troponin's trending up. Will admit to the hospital for serial troponins and re-evaluate tomorrow morning. Time: 01:02 Medications Administered Discontinued Medications Generic Name Dose Route Start Last Admin Trade Name [place] PRN Reason Stop Dose Admin Acetaminophen 975 mg 04/02/25 21:55 04/02/25 21:56 Acetaminophen 325 Mg Tablet PO 04/02/25 21:56 975 mg ONCE ONE Administration Adenosine 6 mg 04/02/25 18:13 04/02/25 18:16 Adenosine 6 Mg/2 Ml Vial IVPUSH 04/02/25 18:14 6 mg ONCE ONE Administration Adenosine 12 mg 04/02/25 18:35 04/02/25 18:17 Adenosine 6 Mg/2 Ml Vial IVPUSH 04/02/25 18:36 12 mg ONCE ONE Administration Diazepam 5 mg 04/02/25 18:42 04/02/25 18:49 Diazepam 10 Mg/2 Ml Cartridge IVPUSH 04/02/25 18:43 5 mg STAT STA Administration Propranolol HCl 5 mg 04/02/25 18:55 04/02/25 19:30 Propranolol Hcl 10 Mg Tablet PO 04/02/25 18:56 Not Given ONCE ONE Protocol Medical Decision Making Differential Diagnosis Differential Diagnoses: The differential diagnosis associated with the presentation includes ( Atrial dysrhythmia, ventricular dysrhythmia, electrolyte derangement, severe anemia, ACS.) Admission/Observation Consideration of admission/observation: Escalation of care including admission/observation considered Lab Data MDM Lab Attestation statement: I reviewed the patient's lab results. 04/02/25 18:33 04/02/25 18:33 Labs: Lab Results 04/02/25 04/02/25 04/03/25 Range/Units 18:33 20:48 00:19 WBC 5.4 (4.8-10.8) X10*3/uL RBC 4.57 (4.20-5.50) X10*6/uL Hgb 12.3 (12.0-16.0) g/dl Hct 39.5 (37.0-47.0) % MCV 86.4 (80.0-98.0) fL MCH 26.9 L (27.0-33.0) pg MCHC 31.1 (31.0-35.0) g/dl RDW 13.2 (11.0-16.0) % Plt Count 221 (160-400) X10*3/uL MPV 10.6 (9.4-12.3) fL Immature Gran % (Auto) 0.4 (0.0-0.4) % Neut % (Auto) 57.7 (45-73) % Lymph % (Auto) 29.4 (20-40) % [place] % (Auto) 10.8 (2-11) % Eos % (Auto) 1.1 (0-4) % Baso % (Auto) 0.6 (0-2) % Lymph # (Auto) 1.6 (1.2-4.9) X10*3/uL [place] # (Auto) 0.6 (0.1-1.2) X10*3/uL Eos # (Auto) 0.1 (0.0-0.4) X10*3/uL Baso # (Auto) 0.0 (0.0-0.2) X10*3/uL Abs Immat Gran (auto) 0.02 (0.00-0.03) X10*3/uL Absolute Neuts (auto) 3.1 (2.0-8.3) x10*3/uL Absolute Nucleated RBC 0.000 (0.0-0.012) X10*3/uL Nucleated RBC % (auto) 0.0 (0.0-0.2) /100WBC Hold Purple Top SEE NOTE PT 11.7 (11.2-13.5) SEC INR 1.0 (0.9-1.1) APTT 28.9 (26.7-34.1) SEC Sodium 140 (135-145) mmol/L Potassium 4.5 (3.3-5.1) mmol/L Chloride 110 H (96-108) mmol/L Carbon Dioxide 23 (22-29) mmol/L Anion Gap 12 (12-20) BUN 15 (9-16) mg/dL Creatinine 1.11 (0.5-1.4) mg/dL Estim Creat Clear Calc 71.1 Estimated GFR 52 Random Glucose 126 H (60-115) mg/dL Calcium 8.1 L (8.4-10.2) mg/dL Total Bilirubin 0.2 (0.0-1.0) mg/dL AST 22 (5-31) U/L ALT 14 (0-31) U/L Alkaline Phosphatase 74 (39-117) U/L Troponin I High Sens < 2.7 19.9 H D 46.1 H D (<3.5-17.0) ng/L Total Protein 7.1 (6.5-8.0) g/dL Albumin 3.9 (3.5-5.0) g/dL TSH 3.35 (0.32-4.0) uIU/mL Independent Interpretation I performed an independent interpretation of an: EKG ( EKG 1. SVT at 207.EKG 2. sinus tachycardia at [address]-T changes.) Critical Care Time Critical Care Time Critical Care Time: Yes Total Critical Care Time: 60 Attestation: The patient was critically ill with a high probability of imminent or life- threatening deterioration. I spent greater than 30 minutes of discontinuous time evaluating the patient, delivering critical care at the bedside, discussing evaluating data with consultants. Critical care time does not include time spent performing separately billable procedures or teaching. Time spent performing critical care was 60 minutes. Discharge Plan Discharge Clinical Impression: SVT (supraventricular tachycardia), Elevated troponin Patient Disposition: Admitted As Inpatient Print Language: Omani
[2025-04-02 18:36] LABS: MANUAL DIFF FLAG NO
--- NOTE | 2025-04-02 18:38 | PC.NURSE ---
IV access established bilaterally: 20g Right AC, 18g Left AC. Labs drawn and sent for analysis. Results pending. Given adenosine 6mg then 12mg as documented for tachycardia 220s. Currently ~110 bpm. Patient is trembling/shaking, Dr. Weldon aware. Alert & oriented at this time.
[2025-04-02 18:49] LABS: Hematocrit 39.5 % (37.0-47.0); Hemoglobin 12.3 g/dl (12.0-16.0); Imm Gran Abs Auto 0.02 X10*3/uL (0.00-0.03); Imm Gran Pct Auto 0.4 % (0.0-0.4); Lymphocytes Absolute Auto 1.6 X10*3/uL (1.2-4.9); Mean Corpuscular HGB Conc 31.1 g/dl (31.0-35.0); Mean Corpuscular Hemoglobin 26.9 pg (27.0-33.0); Mean Corpuscular Volume 86.4 fL (80.0-98.0); NRBC Abs Auto 0.000 X10*3/uL (0.0-0.012); NRBC Pct Auto 0.0 /100WBC (0.0-0.2); Platelet Count 221 X10*3/uL (160-400); Red Blood Count 4.57 X10*6/uL (4.20-5.50); White Blood Count 5.4 X10*3/uL (4.8-10.8)
[2025-04-02] MEDS: diazePAM 10 MG/2 ML CARTRIDGE 5 MG IVPUSH (18:49)
[2025-04-02 19:06] LABS: Alanine Aminotransferase 14 U/L (0-31); Albumin Level 3.9 g/dL (3.5-5.0); Alkaline Phosphatase 74 U/L (39-117); Anion Gap 12 (12-20); Aspartate Amino Transferase 22 U/L (5-31); Blood Urea Nitrogen 15 mg/dL (9-16); Calcium 8.1 mg/dL (8.4-10.2); Carbon Dioxide 23 mmol/L (22-29); Chloride 110 mmol/L (96-108); Creatinine Clr Calc Pharmacy 71.1; Estimated Glomerular Filt Rate 52; Potassium 4.5 mmol/L (3.3-5.1); Sodium 140 mmol/L (135-145); Total Protein 7.1 g/dL (6.5-8.0); Troponin-I High Sensitivity < 2.7 ng/L (<3.5-17.0)
[2025-04-02 19:10] LABS: INTERNATIONAL NORM RATIO 1.0 (0.9-1.1); Prothrombin Time 11.7 SEC (11.2-13.5)
[2025-04-02 19:13] LABS: Partial Thromboplastin Time 28.9 SEC (26.7-34.1)
--- NOTE | 2025-04-02 21:17 | PC.NURSE ---
Repeat troponin drawn, results pending. Pt reports headache, Dr. Weldon aware. Dispo pending repeat troponin results.
--- NOTE | 2025-04-02 22:10 | PC.NURSE ---
Called lab regarding delayed repeat troponin result. Lab staff member stated we ran out of the reagent that we need, and we're processing it right now. It will be another [address] Weldon & patient notified/aware. Discharge pending lab result. Ambulates steadily out of bed x2 to use bathroom. Vitals stable. Care ongoing by this RN. Family remains at bedside.
--- OUTSIDE RECORDS SUMMARY | 2025-04-02 23:16 | XMS_ITS | Patient Health Record ---
Author Organization [facility] Address [address] [place] [address] Care Team Providers Care College Archivist Name Role Phone Ceci Blackburn M.D. Primary Care Provider Emerson Schwartz [phone] Allergies Allergen (clinical drug ingredient) Drug/Non Drug Allergy documented on EMR Reaction Allergy Type Onset Date Status ciprofloxacin cipro (uncoded) Unknown Allergy Active vancomycin Vancomycin HCl Unknown Drug Allergy A ctive Results Component Value Reference Range Flag Notes Complete Blood Count Auto Di ff Reviewed date:04/09/2024 10:38:42 PM Interpretation: Performing Lab:[facility], [address] [place] [id number] Notes/Report: White Blood Count 5.2 4.8-10.8 X10*3/uL [...] Panel Reviewed date:04/04/2024 01:40:57 PM Interpretation: Performing Lab:[address] [address] Notes/Report: Bilirubin Total 0.2 0.0-1.0 mg/dL N Bilirubin Direct < 0.2 0.0-0.5 mg/dL N Aspartate Amino Transferase 22 5-31 U/L N Alanine Aminotransferase 34 0-31 U/L H Total Protein 7.2 6.5-8.0 g/dL N Albumin Level 3.7 3.5-5.0 g/dL N Alkaline Phosphatase 71 39-117 U/L N [place] KEMPT Reviewed date:06/05/2024 05:15:56 PM Interpretation: Performing Lab:[address] [address] Notes/Report: [place] KEMPT SEE NOTE SEE SCANNED [...] MG/20ML Solution Intrathecal Three times a day Not-Taking/LA N Nabumetone 500 MG Tablet Oral; Duration: [...] Capsule as directed Orally every 6 hrs Not-Taking/LA N Arnuity Ellipta 100 MCG/ACT Aerosol Powder [...] MG Capsule Oral; Duration: 30 Days Active Dbgkfbanan-RHAK-Vck feine 50-325-40 MG Tablet TAKE 1 TO 2 TABLETS BY MOUTH EVERY 4 HOURS NEEDED. NOT TO EXCEED 6 TABLETS PER 24 HOURS Oral; Duration: 5 Not-Taking/LA N Zolpidem Tartrate 10 MG Tablet TAKE [...] Status Risk Notes Problem Colon cancer screening (486541799) Colon cancer screening (Z12.11) Active confirmed Problem Irritable bowel syndrome (03111964) Irritable bowel syndrome (K58.9) Active confirmed Problem Constipation (74458518) Constipation (K59.00) Active confirmed Problem Crohn's disease of small AND large intestines (06732036) Crohn's disease of both small and large intestine without complication (K50.80) Active confirmed Problem Nausea (839939180) Nausea (R11.0) Active confir med Problem Therapeutic drug monitoring, quantitative (regime/therapy) (02743246) Encounter for therapeutic drug level monitoring (Z51.81) Active confirmed Problem Dysphagia (01850185) Dysphagia (R13.10) Active confirmed Problem Crohn's disease of small AND large intestines (85731274) Crohns disease of both small and large intestine without complication (K50.80) Active confirmed Problem Gastroesophageal reflux disease (642038684) Gastroesophageal reflux disease, esophagitis presence not specified (K21.9) Active confirmed Problem Chronic gastritis (4821526) Chronic gastritis (K29.50) Active confirmed Problem Diarrhea (72870583) Diarrhea, unspecified type (R19.7) Active confirmed Problem Crohn's disease of small AND large intestines (07856981) Crohn''s disease of both small and large intestine without complication (K50.80) Active confirmed Problem Erythematous ski n nodule (R22.9) Active confirmed Problem Vaginal candidiasis (66855479) Vaginal candidiasis (B37.3) Active confirmed Problem Drug monitoring done (597680466) Encounter for therapeutic drug monitoring (Z51.81) Active confirmed Problem Gastroesophageal reflux disease (disorder) (654120796) Chronic GERD (K21.9) Active confirmed Vital Signs Temperature 97.2 degrees Fahrenheit 01/09/2025 Blood pressure diastolic 01 mm Hg 01/09/2025 Height 65.5 in 01/09/2025 Blood pressure systolic 001 mm Hg 01/09/2025 Weight 254.2 lbs 01/09/2025 BMI 41.65 kg/m2 01/09/2025 Encounters Encounter Location Date Provider Diagnosis [facility] [address] [place] [address] 06/05/2024 Emerson Canales Crohn's disease of both small and large intestine without complication K50.80 ; Irritable bowel syndrome K58.9 ; Chronic GERD K21.9 and Vaginal candidiasis B37.3 [facility] [address] [place] [address] 01/09/2025 Emerson Canales Crohns disease of jaquelin th small and large intestine without complication K50.80 and Constipation K59.00 [facility] [address] [place] [address] [facility] [address] [place] [address] 06/05/2024 Emerson Cortez [facility] [address] [place] [address] [facility] [address] [place] [address] 06/22/2024 Emerson Canales [facility] [address] [place] [address] 10/24/2024 Emerson Canales Assessments Encounter Date Diagnosis [...] regimen including MiraLAX, fiber supplement, and another prit-fkq-rjjkqwo stool softener such as Colace. I advised [...] regimen including MiraLAX, fiber supplement, and another zcwd-pik-muvgysq stool softener such as Colace. I advised [...] Fry Ally , 07/30/2025 09:10:00 AM, [address] [facility], [address], [place], [address], Insurance Providers Payer Name Payer Address Payer Phone Subscriber Number Group Number Insured Name Patient Relationship to Insured Coverage Start Date Coverage End Date MEDICARE OF [place] [address] [place] [address] [id number] STEPHIE DORSEY Self - patient is the insured MEDICAID OF [facility] [address] [place] [address] [id number] STEPHIE DORSEY Self - patient is the insured Medical (General) History Medical History History ICD Code Colonoscopy 07-07-2012 Crohn's colitis-diagnosed in 2000- colonoscopy in 02/2009 at [facility] with diffuse colitis/ileitis-has been treated with Remicade, Humira, and azathioprine in the past at [facility]- Stephie reports that the mesalamines and azathioprine seem to exacerbate her GI symptoms with gas and cramps- however, at those time she is usually having active Crohn's disease symptoms as well- -she was hospitalized at [facility] in 06/2013 for a flareup of the [...]
--- OUTSIDE RECORDS SUMMARY | 2025-04-02 23:16 | XMS_ITS | Clinical Summary ---
Author Organization [address] [facility] Address [address] [place] [address] Phone Care Team Providers Care Process Checker Name Role Phone Katrina Sherwood MD Primary Care Provider [phone] Allergies Active Allergy Reactions Criticality Noted Date [...] Care Team Description 02/13/2025 Telephone Orthopedic [place] [address] [phone] Juan Moody DPM 02/11/2025 1:00 PM EDT Office Visit Orthopedic [place] [phone] [phone] Juan Moody DPM Posterior tibial tendinitis of [...] Upcoming Encounters Date Type Department Care Team ([facility] st Contact Info) Description 04/15/2025 1:15 PM EST Office Visit Orthopedic Surgery [facility] [address] [phone] Juan Moody DPM [address] [address] Health Maintenance Due Date Last Done Comments [...] Insurance MEDICA[place] - [place] MEDICARE Care Teams Process Checker Relationship Specialty Start Date End Date Katrina Sherwood MD [address] [place] [phone] PCP - General Internal Medicine 01/02/14
[2025-04-02 23:32] LABS: Troponin-I High Sensitivity 19.9 ng/L (<3.5-17.0)
--- NOTE | 2025-04-02 23:33 | PC.NURSE ---
Called lab again regarding still delayed lab. Same story as before, was told 'it should be another 10 minutes'. Patient in 10 ceja, no acute distress, denies complaints. awaiting result in order to discharge.
[2025-04-03 00:46] LABS: Troponin-I High Sensitivity 46.1 ng/L (<3.5-17.0)
--- NOTE | 2025-04-03 01:22 | PM.IMHP ---
History of Present Illness Date of Service: 04/03/25 Attending physician on admission: Wilfrido Trent Chief Complaint: Rapid HR Patient is a 49-year-old female, Albanian speaking with past medical history Crohn's disease on Stelara, sleep apnea on CPAP, SVT/palpitations recently on Holter monitor and propranolol (propranolol stopped due to hypotension), morbid obesity, peripheral vascular disease, bronchial asthma, COVID, osteoarthritis, insomnia, currently has a Mirena in place for 4 years, denies history of smoking, alcohol use, marijuana use or illicit drug use reports having palpitations while driving. The palpitations persisted for approximately 20 minutes. Patient felt a fullness in her throat area but denied any chest pain. Patient was having some dizziness as well. Patient did try to soak her face in cold water which in the past has lowered her heart rate but this time it did not. Patient felt her apical pulse and noted it was fast. Patient did not call 911 but was driven to the ED for further evaluation. On arrival heart rate was in the 200s with SVT rhythm. Patient was moved to room 10 in the ED and was given 6 mg of adenosine with no resolution then 12 mg and patient broke into a sinus rhythm, heart rate 115. Patient actually felt much better after intervention. Troponins were trending up, <2.7, 19.9 then 46.1 prompting request from ED for admission for observation and Cardiology consultation. Patient agreeable to this. Cardiac event monitor was completed in December 2024. Readings indicated baseline normal sinus rhythm occurred 99.46% of the time. Average heart rate was 78 and lowest was 50 and highest was 131. Patient was only in sinus tachycardia. Patient did have rare PVCs with a total burden of 0.5%. There was no evidence of tachy arrhythmias for the duration of Holter monitor which was 14.7 days. Last echo was April 2023, EF 65% and no obvious valvular pathology noted. Labs note a normal TSH of 3.35. Chloride slightly elevated at 110 but electrolytes otherwise normal. Last hemoglobin A1c July 2024 was 5.1, blood glucose 126 mg/dL. Magnesium pending. Literature does indicate that there is a chance that the Mirena can contribute to SVT development. Patient has had the Mirena for the last 4 years. Patient currently has a regular menstrual cycle and is not currently perimenopausal. Patient has not consider removal of the Mirena at this time. Patient denies history of blood clots in both legs and lungs. Incidentally patient has had problems with circulation in the left leg currently asymptomatic and has a initial appointment with vascular later this month. Review of Systems Review of Systems: Patient currently reports she is chest pain-free and has no shortness of breath. Patient denies any abdominal pain, nausea or vomiting. Patient is not having any diarrhea or constipation issues. Patient currently denies any headache or visual changes. Yes all other systems are reviewed and are negative [facility] Medical History COVID Somnolence, daytime TANA (obstructive sleep apnea) Allergic rhinitis Bronchial asthma Trigger finger Dysuria Obesity, morbid, BMI 40.0-49.9 Encounter for Papanicolaou smear for cervical cancer screening Asthma Insomnia Crohn's disease Family History Father HIV (human immunodeficiency virus infection) Mother Hypertension Maternal Grandmother Diabetes mellitus Maternal Grandfather Hypertension Lymphoma Paternal Grandfather No problems noted. 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 at home: Yes Do you presently have visiting nurse or other home services: No Alcohol intake: never Patient Tobacco Use Status: Former Tobacco user Tobacco use type: Cigarette Years Smoked: 9 Advance Directives: No Advance Directives Information Provided: No service: No Current occupational status: unemployed 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/ Gender identity: Female Ebola Risk: Travel/Contact With Anyone From Affected Area/s: No Has Patient Experienced Ebola Symptoms: No Meds Allergies Allergy/AdvReac Type Severity Reaction Status Date / Time ciprofloxacin (From CIPRO) Allergy Severe GI PAIN Verified 04/02/25 18:17 vancomycin Allergy Severe Anaphylaxis Verified 04/02/25 18:17 Active Medications: Current Medications Acetaminophen (Acetaminophen 325 Mg Tablet) 650 mg PO Q6H PRN PRN Reason: Pain, Mild 1-3,fever,headache Melatonin (Melatonin 3 Mg Tablet) 6 mg PO BEDTIME PRN PRN Reason: Insomnia Sodium Chloride (0.9 % Sodium Chloride Flush 3 Ml Syringe) 3 ml IVFLUSH QSHIFT [facility] Home Medications ?Medication ?Instructions ?Recorded ?Confirmed ?Last Taken ?Type ustekinumab 90 mg/mL subcutaneous 90 mg subcut Q8W 07/30/20 03/19/25 Unknown History syringe (Stelara) dicyclomine 20 mg tablet 20 mg PO TID 04/07/21 03/19/25 Unknown History pantoprazole 40 mg tablet,delayed 40 mg PO DAILY 04/07/21 03/19/25 Unknown History release fexofenadine 180 mg tablet 180 mg PO DAILY 08/17/21 03/19/25 Unknown History (Amada Allergy) levonorgestrel (Mirena) 20 mcg intrauterine DAILY 08/17/21 03/19/25 Unknown History albuterol sulfate 2.5 mg/3 mL 2.5 mg inhalation QID PRN 05/20/22 03/19/25 Unknown History (0.083 %) solution for nebulization Shortness Of Breath clonazepam 0.5 mg tablet 0.5 mg PO DAILY PRN Shortness Of 05/20/22 03/19/25 Unknown History Breath zolpidem 10 mg tablet (Ambien) 10 mg PO BEDTIME Insomnia 04/07/23 03/19/25 Unknown History fluticasone furoate 100 1 inh inhalation DAILY 11/29/24 03/19/25 Unknown History mcg/actuation blister powder for inhalation (Arnuity Ellipta) galcanezumab-gnlm 120 mg/mL 120 mg subcut QMONTH 11/29/24 03/19/25 Unknown History subcutaneous pen injector (Emgality Pen) sertraline 50 mg tablet 100 mg PO DAILY 11/29/24 03/19/25 Unknown History docusate sodium 100 mg capsule 100 mg PO BID constipation 02/07/25 03/19/25 Unknown History gabapentin 600 mg tablet 600 mg PO TID 02/07/25 03/19/25 Unknown History ondansetron HCl 8 mg tablet 8 mg PO Q8H PRN 02/07/25 03/19/25 Unknown History polyethylene glycol 3350 17 g PO 02/07/25 03/19/25 Unknown History gram/dose oral powder psyllium husk 0.4 gram capsule 0.8 g PO BID constipation 02/07/25 03/19/25 Unknown History (Reguloid (psyllium husk)) Physical Exam Vital Signs and Narrative: Vital Signs: Last Vital Signs Temp 98.6 F 04/02/25 20:49 Pulse 85 04/02/25 20:49 Resp 19 04/02/25 20:49 BP 104/60 04/02/25 20:49 Pulse Ox 99 04/02/25 20:49 O2 Del Method Room Air 04/02/25 20:49 BMI result Body Mass Index 37.8 Alert and orientated X3, able to give good history. Neuro: CN II-X11 intact, no deficits, visual acuity intact EYES: PERRLA, EOM intact, sclerae nonicteric ENT: hearing intact, no issues with swallowing, uvula midline, lips moist, nares patent no epistaxis Cardiac: S1 S2 RRR, no murmur, no JVD, no edema in Lower ext Pulmonary: lungs clear to auscultation B Abdominal: BS active in all 4 quadrants, no guarding, tenderness, rebounding MSK: strength 5/5 upper and lower extremities : no CVA tenderness no bladder distension Extremities: no edema in lower extremities, PT and DP pulses palpable +2 Psych: mood stable, judgement and insight good Skin: No new rashes or lesions Results Labs 04/03/25 03:50 04/03/25 03:50 Labs: Laboratory Results - last 24 hr 04/02/25 04/02/25 04/03/25 18:33 20:48 00:19 MCV 86.4 MCH 26.9 L MCHC 31.1 RDW 13.2 Plt Count 221 MPV 10.6 Immature Gran % (Auto) 0.4 Neut % (Auto) 57.7 Lymph % (Auto) 29.4 [place] % (Auto) 10.8 Eos % (Auto) 1.1 Baso % (Auto) 0.6 Lymph # (Auto) 1.6 [place] # (Auto) 0.6 Eos # (Auto) 0.1 Baso # (Auto) 0.0 Abs Immat Gran (auto) 0.02 Absolute Neuts (auto) 3.1 Absolute Nucleated RBC 0.000 Nucleated RBC % (auto) 0.0 Hold Purple Top SEE NOTE PT 11.7 INR 1.0 APTT 28.9 Anion Gap 12 Estim Creat Clear Calc 71.1 Estimated GFR 52 Random Glucose 126 H Calcium 8.1 L Total Bilirubin 0.2 AST 22 ALT 14 Alkaline Phosphatase 74 Troponin I High Sens < 2.7 19.9 H D 46.1 H D Total Protein 7.1 Albumin 3.9 TSH 3.35 ECG Attestation: I personally reviewed and interpreted this ECG as follows: (Sinus tachycardia) Prior ECG tracings: available for review Assessment and Plan (1) SVT (supraventricular tachycardia): Status: Acute (2) Elevated troponin: Status: Acute Plan Patient is a 49-year-old female, Albanian speaking with past medical history Crohn's disease on Stelara, sleep apnea on CPAP, SVT/palpitations recently on Holter monitor and propranolol (propranolol stopped due to hypotension), morbid obesity, peripheral vascular disease, neuropathy, bronchial asthma, COVID, osteoarthritis, insomnia, currently has a Mirena in place for 4 years, denies history of smoking, alcohol use, marijuana use or illicit drug use reports having palpitations while driving. The palpitations persisted for approximately 20 minutes. Patient arrived to the ED ambulatory and was found to be in SVT. Patient required adenosine 6 mg and 12 mg and converted to sinus tachycardia/sinus rhythm with relief of symptoms. Request for observation overnight and patient being admitted under obs. SVT/ history of SVT Responded well to chemical CV adenosine 6 mgs then 12 mgs Patient follows with [facility] Cardiology Recent Holter monitor with no events, was taken off propranolol recently for hypotension (propranolol prescribed for headache, but initially was helping with patient's palpitations) Cardiology consulted Echocardiogram pending Magnesium pending, TSH WNL Continue telemetry Electrolytes currently stable, repeat labs in the a.m. Pt has had Mirena IUD past 4 years, can contribute to SVT development secondary to progesterone Elevated troponin Secondary to SVT with chemical cardioversion most likely After conversion patient asymptomatic Continue telemetry Repeat troponin Crohn's disease Patient continues on her injectable medication and her symptoms have been well-controlled Patient will continue outpatient monitoring with provider Continue Bentyl TANA CPAP ordered GERD Omeprazole JOSE Patient normally on sertraline and clonazepam PVD/ Neuropathy Patient has upcoming 1st appointment with vascular for left leg circulatory problems, patient currently asymptomatic Patient normally on gabapentin Insomnia Ambien ordered DVT Prophylaxis: not indicated MED REC PENDING FULL CODE Quality Stroke Does the patient have a stroke diagnosis?: No Reason for No Anti-thrombotic by Day Two: Drug treatment not indicated VTE Prior VTE?: No VTE Risk Level:: Medical - low VTE Device Contraindication: Treatment Not Indicated VTE Drug Contraindication: Treatment Not Indicated
[2025-04-03 02:20] LABS: Magnesium 1.7 mg/dL (1.6-2.6)
[2025-04-03 02:31] VITALS: BP 111/77; PULSE 82; RESP 20; TEMP 36.8; O2SAT 97
[2025-04-03 03:57] LABS: MANUAL DIFF FLAG NO
[2025-04-03 03:58] LABS: Hematocrit 36.5 % (37.0-47.0); Hemoglobin 11.8 g/dl (12.0-16.0); Imm Gran Abs Auto 0.02 X10*3/uL (0.00-0.03); Imm Gran Pct Auto 0.4 % (0.0-0.4); Lymphocytes Absolute Auto 1.7 X10*3/uL (1.2-4.9); Mean Corpuscular HGB Conc 32.3 g/dl (31.0-35.0); Mean Corpuscular Hemoglobin 27.3 pg (27.0-33.0); Mean Corpuscular Volume 84.3 fL (80.0-98.0); NRBC Abs Auto 0.000 X10*3/uL (0.0-0.012); NRBC Pct Auto 0.0 /100WBC (0.0-0.2); Platelet Count 221 X10*3/uL (160-400); Red Blood Count 4.33 X10*6/uL (4.20-5.50); White Blood Count 5.2 X10*3/uL (4.8-10.8)
[2025-04-03 04:20] LABS: Alanine Aminotransferase 13 U/L (0-31); Albumin Level 3.5 g/dL (3.5-5.0); Alkaline Phosphatase 59 U/L (39-117); Anion Gap 10 (12-20); Aspartate Amino Transferase 17 U/L (5-31); Blood Urea Nitrogen 12 mg/dL (9-16); Calcium 8.2 mg/dL (8.4-10.2); Carbon Dioxide 22 mmol/L (22-29); Chloride 111 mmol/L (96-108); Creatinine Clr Calc Pharmacy 109.7; Estimated Glomerular Filt Rate > 60; Potassium 3.6 mmol/L (3.3-5.1); Sodium 139 mmol/L (135-145); Total Protein 6.3 g/dL (6.5-8.0)
[2025-04-03 04:22] LABS: Troponin-I High Sensitivity 41.4 ng/L (<3.5-17.0)
[2025-04-03] MEDS: 0.9 % Sodium Chloride Flush 3 ML SYRINGE IVFLUSH (08:10)
[2025-04-03 08:14] VITALS: BP 98/56; PULSE 81; RESP 14; TEMP 36.7; O2SAT 98
--- NOTE | 2025-04-03 08:33 | PC.NURSE ---
Patient remains alert and oriented. No signs of distress. Remains normal sinus rhythm. Awaiting cardiology consult. Denies chest pain. Resting quietly, call magdaleno placed within reach.
--- NOTE | 2025-04-03 08:49 | PM.CNCAR ---
History of Present Illness History of Present Illness Date of Service: 04/03/25 Requesting physician: Rand Duarte Consult reason: troponin elevation and other (SVT) Chief complaint: SVT Narrative: I was consulted to see Windy in cardiology consultation today for elevated troponin setting of prolonged SVT. Patient follows in his office with prior history of longstanding palpitations of unclear etiology in the past she has had brief runs of SVE but no significant prolonged SVTs. She was on propranolol therapy in the past which was recently discontinued due to low blood pressure and she came in his hospital with rapid heart rate along with symptoms of dizziness. She said the symptoms started suddenly and were much severe than in his prior symptoms. She tried vagal maneuvers at home including Valsalva, washing her face with cold water but symptoms continued to persist and she came to the emergency room. In the emergency room she was noted to have narrow complex tachycardia at about 200 beats per minute. Symptoms lasted overall for 30 minutes. She then received IV do not seen 6 mg without effect and then 12 mg with effect. She then converted to sinus tachycardia. Has had no overnight recurrence. Troponin was drawn although patient did not have any significant chest pain which showed elevation of troponin consistent with myocardial injury. She has no prior history of coronary artery disease. Her risk factors include obesity, and possible mild hyperlipidemia. She has no history of diabetes hypertension. She does have obstructive sleep apnea as well as bronchial asthma and Crohn's disease. Review of Systems Constitutional: Constitutional: Reports no additional constitutional complaints Eyes: Eyes: Reports no additional eye complaints Cardiovascular: Cardiovascular: Denies chest pain, Reports lightheadedness, Reports palpitations and Denies dyspnea Respiratory: Respiratory: Denies no additional respiratory complaints and Denies dyspnea Gastrointestinal: Gastrointestinal: Reports no additional gastrointestinal complaints Genitourinary: Genitourinary: Reports no additional female genitourinary complaints Musculoskeletal: Musculoskeletal: Reports no additional musculoskeletal complaints Integumentary/Breasts: Skin/Breast: Reports system reviewed and no additional complaints, except as docu Neurologic: Reports system reviewed and no additional complaints, except as documented Psychiatric: Psychiatric: Reports no additional psychiatric complaints Endocrine: Endocrine: Reports palpitations PMFSH Past Medical History Medical History COVID Somnolence, daytime TANA (obstructive sleep apnea) Allergic rhinitis Bronchial asthma Trigger finger Dysuria Obesity, morbid, BMI 40.0-49.9 Encounter for Papanicolaou smear for cervical cancer screening Asthma Insomnia Crohn's disease Family History Family History Father HIV (human immunodeficiency virus infection) Mother Hypertension Maternal Grandmother Diabetes mellitus Maternal Grandfather Hypertension Lymphoma Paternal Grandfather No problems noted. 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 at home: Yes Do you presently have visiting nurse or other home services: No Alcohol intake: never Patient Tobacco Use Status: Former Tobacco user Tobacco use type: Cigarette Years Smoked: 9 Advance Directives: No Advance Directives Information Provided: No service: No Current occupational status: unemployed 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/ Gender identity: Female Travel History Ebola Risk: Travel/Contact With Anyone From Affected Area/s: No Has Patient Experienced Ebola Symptoms: No Meds Allergies Allergy/AdvReac Type Severity Reaction Status Date / Time ciprofloxacin (From CIPRO) Allergy Severe GI PAIN Verified 04/02/25 18:17 vancomycin Allergy Severe Anaphylaxis Verified 04/02/25 18:17 Active Medications: Current Medications Acetaminophen (Acetaminophen 325 Mg Tablet) 650 mg PO Q6H PRN PRN Reason: Pain, Mild 1-3,fever,headache Last Admin: 04/03/25 05:21 Dose: 650 mg Albuterol/Ipratropium (Albuterol/Iprat 2.5/0.5mg 3 Ml Ampul.Neb) 3 ml INHALE Q4H PRN PRN Reason: Shortness of Breath/Wheezing Calcium Carbonate (Calcium Carbonate 750 Mg Tab.Chew) 750 mg PO Q4H PRN PRN Reason: Heartburn Magnesium Hydroxide (Milk Of Magnesia 30 Ml Oral.Susp) 30 ml PO DAILY PRN PRN Reason: Constipation Melatonin (Melatonin 3 Mg Tablet) 6 mg PO BEDTIME PRN PRN Reason: Insomnia Ondansetron HCl (Ondansetron Hcl 4 Mg/2 Ml Vial) 4 mg IVPUSH Q8H PRN PRN Reason: Nausea and Vomiting Polyethylene Glycol (Polyethylene Glycol 3350 17 Gm Powd.Pack) 17 gm PO DAILY PRN PRN Reason: Constipation Sodium Chloride (0.9 % Sodium Chloride Flush 3 Ml Syringe) 3 ml IVFLUSH QSHIFT RICHARD Last Admin: 04/03/25 08:10 Dose: 3 ml Home Medications ?Medication ?Instructions ?Recorded ?Confirmed ?Last Taken ?Type ustekinumab 90 mg/mL subcutaneous 90 mg subcut Q4W 07/30/20 03/19/25 Unknown History syringe (Stelara) dicyclomine 20 mg tablet 20 mg PO TID 04/07/21 03/19/25 Unknown History pantoprazole 40 mg tablet,delayed 40 mg PO DAILY@0630 04/07/21 03/19/25 Unknown History release fexofenadine 180 mg tablet 180 mg PO DAILY 08/17/21 03/19/25 Unknown History (Amada Allergy) levonorgestrel (Mirena) 20 mcg intrauterine DAILY 08/17/21 03/19/25 Unknown History albuterol sulfate 2.5 mg/3 mL 2.5 mg inhalation QID PRN 05/20/22 03/19/25 Unknown History (0.083 %) solution for nebulization Shortness Of Breath clonazepam 0.5 mg tablet 0.5 mg PO DAILY PRN Shortness Of 05/20/22 03/19/25 Unknown History Breath zolpidem 10 mg tablet (Ambien) 10 mg PO BEDTIME Insomnia 04/07/23 03/19/25 Unknown History fluticasone furoate 100 1 inh inhalation DAILY 11/29/24 03/19/25 Unknown History mcg/actuation blister powder for inhalation (Arnuity Ellipta) galcanezumab-gnlm 120 mg/mL 120 mg subcut QMONTH 11/29/24 03/19/25 Unknown History subcutaneous pen injector (Emgality Pen) docusate sodium 100 mg capsule 100 mg PO BID constipation 02/07/25 03/19/25 Unknown History gabapentin 600 mg tablet 600 mg PO TID 02/07/25 03/19/25 Unknown History ondansetron HCl 8 mg tablet 8 mg PO Q8H PRN 02/07/25 03/19/25 Unknown History polyethylene glycol 3350 17 g PO 02/07/25 03/19/25 Unknown History gram/dose oral powder psyllium husk 0.4 gram capsule 0.8 g PO BID constipation 02/07/25 03/19/25 Unknown History (Reguloid (psyllium husk)) propranolol 20 mg tablet 20 mg PO DAILY Migraine Headache 04/03/25 Unknown History sennosides 8.6 mg tablet (senna) 17.2 mg PO BID 04/03/25 Unknown History sertraline 100 mg tablet 100 mg PO DAILY 04/03/25 Unknown History Physical Exam Vital Signs: Vital Signs: Last Vital Signs Temp 98.1 F 04/03/25 08:14 Pulse 81 04/03/25 08:14 Resp 14 04/03/25 08:14 BP 98/56 L 04/03/25 08:14 Pulse Ox 98 04/03/25 08:14 O2 Del Method Room Air 04/03/25 08:14 BMI result Body Mass Index 37.8 Const: General: cooperative, comfortable, no acute distress, alert and awake Nutritional Appearance: obese Orientation/consciousness: patient oriented x3 Limitations: no limitations HEENT: Head: Yes normocephalic and Yes atraumatic Neck: Neck: Yes trachea midline, Yes supple and Yes no JVD Resp: Effort & Inspection: normal respiratory effort Auscultation: clear to auscultation bilaterally Cardio: Jugular venous distension: no JVD Rate: regular rate Rhythm: regular rhythm Heart sounds: S1 normal heart sound present, S2 normal heart sound present, no click, no gallops, no murmurs and no rubs GI: Auscultation: normal bowel sounds Skin: General skin exam: no rashes or lesions noted Neuro: General: patient oriented x3 and no focal motor deficits Extrem: General: Yes no clubbing, cyanosis or edema Objective Labs and Meds 04/03/25 03:50 04/03/25 03:50 Lab results: Laboratory Results - last 24 hr 04/02/25 04/02/25 04/03/25 18:33 20:48 00:19 WBC 5.4 RBC 4.57 Hgb 12.3 Hct 39.5 MCV 86.4 MCH 26.9 L MCHC 31.1 RDW 13.2 Plt Count 221 MPV 10.6 Immature Gran % (Auto) 0.4 Neut % (Auto) 57.7 Lymph % (Auto) 29.4 [place] % (Auto) 10.8 Eos % (Auto) 1.1 Baso % (Auto) 0.6 Lymph # (Auto) 1.6 [place] # (Auto) 0.6 Eos # (Auto) 0.1 Baso # (Auto) 0.0 Abs Immat Gran (auto) 0.02 Absolute Neuts (auto) 3.1 Absolute Nucleated RBC 0.000 Nucleated RBC % (auto) 0.0 Hold Purple Top SEE NOTE PT 11.7 INR 1.0 APTT 28.9 Sodium 140 Potassium 4.5 Chloride 110 H Carbon Dioxide 23 Anion Gap 12 BUN 15 Creatinine 1.11 Estim Creat Clear Calc 71.1 Estimated GFR 52 Random Glucose 126 H Calcium 8.1 L Magnesium 1.7 Total Bilirubin 0.2 AST 22 ALT 14 Alkaline Phosphatase 74 Troponin I High Sens < 2.7 19.9 H D 46.1 H D Total Protein 7.1 Albumin 3.9 TSH 3.35 04/03/25 03:50 WBC 5.2 RBC 4.33 Hgb 11.8 L Hct 36.5 L MCV 84.3 MCH 27.3 MCHC 32.3 RDW 13.2 Plt Count 221 MPV 11.0 Immature Gran % (Auto) 0.4 Neut % (Auto) 54.9 Lymph % (Auto) 32.3 [place] % (Auto) 10.3 Eos % (Auto) 1.3 Baso % (Auto) 0.8 Lymph # (Auto) 1.7 [place] # (Auto) 0.5 Eos # (Auto) 0.1 Baso # (Auto) 0.0 Abs Immat Gran (auto) 0.02 Absolute Neuts (auto) 2.9 Absolute Nucleated RBC 0.000 Nucleated RBC % (auto) 0.0 Hold Purple Top PT INR APTT Sodium 139 Potassium 3.6 Chloride 111 H Carbon Dioxide 22 Anion Gap 10 L BUN 12 Creatinine 0.72 Estim Creat Clear Calc 109.7 Estimated GFR > 60 Random Glucose 84 Calcium 8.2 L Magnesium Total Bilirubin 0.3 AST 17 ALT 13 Alkaline Phosphatase 59 Troponin I High Sens 41.4 H Total Protein 6.3 L Albumin 3.5 TSH EKGs shows now complex tachycardia suggestive of AVNRT at 207 beats per minute. Second EKGs shows poor baseline but shows sinus tachycardia. 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 I think this is highly amenable to ablation Especially given limitations due oral medications due to low blood pressure issues. However she will need an up into consult with electrophysiology which might take few months. Will start her on low-dose metoprolol 25 mg daily at nighttime. We rediscussed vagal maneuvers to try to alleviate her SVT. She understands them very well. I have also advised her to increase her fluid and salt intake to maintain adequate hydration to maintain a blood pressure. We discussed the pathophysiology of AVNRT with dual AV fuentes physiology and response with ablation which has high success rate. she understands in his amenable to that suggestion. advised to avoid stimulants and stress mitigation strategies were discussed. (2) Elevated troponin: Status: Acute Elevated troponins are secondary to prolonged SVT episode with the associated myocardial injury. This is not suggestive of acute coronary syndrome. However this is unusual in her age group and will require outpatient ruled out for myocardial ischemia which will be scheduled. Meanwhile I think she can be safely discharged home. Will follow up as outpatient. Thank you for allowing me to partake in her care Procedures Date of Service Date of Service: 04/03/25
--- NOTE | 2025-04-03 09:29 | PHA.MEDREC ---
Addendum entered by Obdulio Calhoun RPh 04/03/25 10:43: Reviewed by [facility] Original Note: Pharmacy Consult ? Medication Reconciliation Pharmacy has completed the medication reconciliation. Spoke with pt and she confirmed her mediations. Pt taking Dicyclomine 20mg tabs as needed for stomach upset and usually takes one in the morning per pt, she takes Emgality once a month and confirmed she is due for that 04/14, she uses Stelara Q4W and states she is due for that today and she is no longer taking Propanolol; Dr stopped that ~1 month ago due to pt low BP at time.
--- NOTE | 2025-04-03 09:52 | PM.DS ---
DS: Providers Provider Date of Service: 04/03/25 Date of admission: 04/03/25 01:19 Date of discharge: 04/03/25 Primary care physician: Ceci Peacock MD Consults: 04/03/25 01:43 Consult to Cardiology Routine Consulting Provider: [facility] Reason for consultation: SVT required adenosine Has provider been notified: No Attending physician on discharge: Brian Rojas Discharging clinician: Rand Duarte DS: Diagnosis Discharge Diagnosis (1) SVT (supraventricular tachycardia): Start date: 04/02/25 Status: Acute (2) Elevated troponin: Start date: 04/02/25 Status: Acute DS: Summary Hospital Course Hospital Course: 49-year-old female with past medical history of morbid obesity, sleep apnea, palpitations, history of SVT, came into ER with dizziness and lightheadedness. She is found to have a heart rate in the 200s on admission. Patient received 6 mg of adenosine with no resolution and then subsequently 12 mg of adenosine and then converted to sinus rhythm. Overnight patient had no events on the monitor remained in sinus rhythm. Troponins initially less than 2.7, subsequently 19.9 trending up to 46.1. Repeat troponin trending down to 41.4. Likely due to myocardial injury, not suggestive of ACS. Patient does not have any history of coronary artery disease. Her TSH was 3.35. No other significant electrolyte abnormalities. Her A1c is 5.1. Magnesium was within normal limits. Patient had a recent cardiac event monitor in December 2024. Noted to be in normal sinus rhythm 99.46% of the time. No evidence of any tachyarrhythmia in the time the monitor was worn. Patient had echocardiogram April 2023 with a EF of 65% with no valvular pathology. Patient was seen by Cardiology who recommended starting a low-dose of metoprolol XL in recommendations for outpatient EP consult and stress test. Patient was monitored overnight with no other events noted, remained in normal sinus rhythm. Time Attestation Discharge Coordination Time (in mins): 30 Quality: Safe Use of Opioids Does Pt have an Active Cancer Diagnosis on the Problem List?: No Quality: Stroke Does the patient have a stroke diagnosis?: No Physical Exam Vital Signs: Vital Signs: Last Vital Signs Temp 98.1 F 04/03/25 08:14 Pulse 81 04/03/25 08:14 Resp 14 04/03/25 08:14 BP 98/56 L 04/03/25 08:14 Pulse Ox 98 04/03/25 08:14 O2 Del Method Room Air 04/03/25 08:14 BMI result Body Mass Index 37.8 DS: Data Data Completed and Pending Labs on day of discharge: Laboratory Results - last 24 hr 04/02/25 04/02/25 04/03/25 18:33 20:48 00:19 WBC 5.4 RBC 4.57 Hgb 12.3 Hct 39.5 MCV 86.4 MCH 26.9 L MCHC 31.1 RDW 13.2 Plt Count 221 MPV 10.6 Immature Gran % (Auto) 0.4 Neut % (Auto) 57.7 Lymph % (Auto) 29.4 [place] % (Auto) 10.8 Eos % (Auto) 1.1 Baso % (Auto) 0.6 Lymph # (Auto) 1.6 [place] # (Auto) 0.6 Eos # (Auto) 0.1 Baso # (Auto) 0.0 Abs Immat Gran (auto) 0.02 Absolute Neuts (auto) 3.1 Absolute Nucleated RBC 0.000 Nucleated RBC % (auto) 0.0 Hold Purple Top SEE NOTE PT 11.7 INR 1.0 APTT 28.9 Sodium 140 Potassium 4.5 Chloride 110 H Carbon Dioxide 23 Anion Gap 12 BUN 15 Creatinine 1.11 Estim Creat Clear Calc 71.1 Estimated GFR 52 Random Glucose 126 H Calcium 8.1 L Magnesium 1.7 Total Bilirubin 0.2 AST 22 ALT 14 Alkaline Phosphatase 74 Troponin I High Sens < 2.7 19.9 H D 46.1 H D Total Protein 7.1 Albumin 3.9 TSH 3.35 04/03/25 03:50 WBC 5.2 RBC 4.33 Hgb 11.8 L Hct 36.5 L MCV 84.3 MCH 27.3 MCHC 32.3 RDW 13.2 Plt Count 221 MPV 11.0 Immature Gran % (Auto) 0.4 Neut % (Auto) 54.9 Lymph % (Auto) 32.3 [place] % (Auto) 10.3 Eos % (Auto) 1.3 Baso % (Auto) 0.8 Lymph # (Auto) 1.7 [place] # (Auto) 0.5 Eos # (Auto) 0.1 Baso # (Auto) 0.0 Abs Immat Gran (auto) 0.02 Absolute Neuts (auto) 2.9 Absolute Nucleated RBC 0.000 Nucleated RBC % (auto) 0.0 Hold Purple Top PT INR APTT Sodium 139 Potassium 3.6 Chloride 111 H Carbon Dioxide 22 Anion Gap 10 L BUN 12 Creatinine 0.72 Estim Creat Clear Calc 109.7 Estimated GFR > 60 Random Glucose 84 Calcium 8.2 L Magnesium Total Bilirubin 0.3 AST 17 ALT 13 Alkaline Phosphatase 59 Troponin I High Sens 41.4 H Total Protein 6.3 L Albumin 3.5 TSH Discharge Plan Discharge Patient Disposition: Home, Self-Care Referrals: Ceci Billings MD [Primary Care Provider, Internal Medicine] - 1 Week Elvia Winslow NP-C [Nurse Practitioner, Cardiovascular Disease] Discharge Medications: New metoprolol succinate 25 mg tablet extended release 24 hr 25 mg PO DAILY Qty: 30 0RF Continued montelukast 10 mg tablet 10 mg PO BEDTIME 30 Days Qty: 30 5RF nabumetone 500 mg tablet 500 mg PO BID Qty: 60 0RF albuterol sulfate 90 mcg/actuation HFA aerosol inhaler 2 puff PO Q4-6H PRN (Reason: for wheezing) Qty: 8.5 0RF sennosides [senna] 8.6 mg tablet 17.2 mg PO BID PRN (Reason: Constipation) sertraline 100 mg tablet 100 mg PO DAILY sumatriptan succinate 50 mg tablet 50 mg PO DAILY PRN (Reason: Migraine Headache) zolpidem [Ambien] 10 mg tablet 10 mg PO BEDTIME pantoprazole 40 mg tablet,delayed release (DR/EC) 40 mg PO DAILY@0630 dicyclomine 20 mg tablet 20 mg PO TID PRN (Reason: Stomach Upset) Stelara 90 mg/mL syringe 90 mg subcut Q4W fexofenadine [Amada Allergy] 180 mg tablet 180 mg PO DAILY PRN (Reason: ALLERGIES) clonazepam 0.5 mg tablet 0.5 mg PO TID PRN (Reason: Anxiety) albuterol sulfate 2.5 mg /3 mL (0.083 %) solution for nebulization 2.5 mg inhalation QID PRN (Reason: Shortness Of Breath) Emgality Pen 120 mg/mL pen injector 120 mg subcut QMONTH gabapentin 600 mg tablet 600 mg PO TID docusate sodium 100 mg capsule 100 mg PO BID PRN (Reason: constipation) No Action (DME) blood pressure monitor Kit See Rx Instructions .Route Qty: 1 0RF Rx Instructions: As directed Discharge Orders: Discharge Order (Routine); Ordered 04/03/25 Ordered By: Rand Duarte Diet: Advance to usual diet Activity on Discharge: As tolerated Stand Alone Forms: Patient Portal Discharge page Print Language: Syriac Care Plan Goals: Stay Healthy, Recover from recent illness. Health Concerns: Episode of SVT Elevated troponin Plan of Treatment: You presented to the hospital with a rapid heart rate, he received medicine to slow down your heart rate. You also had elevated troponins and will need outpatient cardiology follow up for further testing and an appointment with the electrophysiology lab for further evaluation. Supraventricular tachycardia Resolved with Adenosin 6+12 mgs Follow up outpatient with EP clinic and cardiology. You will start Metoprolol XL 25 mgs at bedtime. Rise slowly from a lying or sitting position. Elevated Troponin Likely due to myocardial injury from SVT, not suggestive of coronary syndrome Will need outpatient Stress test and Cardiology follow up with [facility] Crohn's disease Continue home medications TANA Continue home CPAP GERD Continue omeprazole General anxiety disorder/insomnia Continue sertraline, clonazepam and home Ambien PVT neuropathy Follow up outpatient with vascular as planned Continue gabapentin Assessment: As Above Patient Instructions: Supraventricular Tachycardia (ED)
== END 2025-04-03 11:12 | disposition home or self-care (01) ==
LOC: HO.ED 04-03 01:02 → HO.EDOVER 04-03 01:42 → HO.S3 04-03 09:46 → HO.EDOVER 04-03 10:51
PROVIDERS: Physician Assistant; Admitting Provider Nurse Practitioner Family; Emergency Provider Emergency Medicine; PCP Internal Medicine; Visit Provider Nurse Practitioner Family
DX: I47.10 Supraventricular tachycardia, unspecified (principal); R79.89 Other specified abnormal findings of blood chemistry; R00.2 Palpitations; R06.02 Shortness of breath; R94.31 Abnormal electrocardiogram [ECG] [EKG]; K50.90 Crohn's disease, unspecified, without complications; G47.33 Obstructive sleep apnea (adult) (pediatric); E66.01 Morbid (severe) obesity due to excess calories; Z68.37 Body mass index [BMI] 37.0-37.9, adult; J45.909 Unspecified asthma, uncomplicated; K21.9 Gastro-esophageal reflux disease without esophagitis; F41.9 Anxiety disorder, unspecified; G47.00 Insomnia, unspecified; Z87.891 Personal history of nicotine dependence; Z99.89 Dependence on other enabling machines and devices; Z79.899 Other long term (current) drug therapy; Z79.51 Long term (current) use of inhaled steroids; Z71.3 Dietary counseling and surveillance
CPT/HCPCS: 36415; 80053; 83735; 84443; 84484; 85025; 85610; 85730; 93005; 96374; 96375; 99221; 99285; J0153; J3360

== ENCOUNTER → 2025-04-02 18:05 | Outpatient (BNV) | payer MEDICARE, MEDICAID, SELFPAY | PROVIDERS: Admitting Provider Nurse Practitioner Family; Emergency Provider Emergency Medicine; PCP Internal Medicine; Visit Provider Internal Medicine Cardiovascular Disease | DX: I47.10 Supraventricular tachycardia, unspecified (principal); R00.0 Tachycardia, unspecified | CPT/HCPCS: 93010 ==

== ENCOUNTER → 2025-04-03 01:19 | Outpatient (BNV) | payer MEDICARE, MEDICAID, SELFPAY | PROVIDERS: Admitting Provider Nurse Practitioner Family; Emergency Provider Emergency Medicine; PCP Internal Medicine; Visit Provider Internal Medicine Cardiovascular Disease | DX: I47.10 Supraventricular tachycardia, unspecified (principal); R79.89 Other specified abnormal findings of blood chemistry | CPT/HCPCS: 99222 ==

== ENCOUNTER → 2025-04-03 01:19 | Outpatient (BNV) | payer MEDICARE, MEDICAID, SELFPAY | PROVIDERS: Admitting Provider Nurse Practitioner Family; Emergency Provider Emergency Medicine; PCP Internal Medicine; Visit Provider Nurse Practitioner Family | DX: I47.10 Supraventricular tachycardia, unspecified (principal); R79.89 Other specified abnormal findings of blood chemistry | CPT/HCPCS: 99234; 99499 ==

== ENCOUNTER 2025-04-05 13:48 | Outpatient (AMB) | payer MEDICARE, MEDICAID, SELFPAY ==
--- NOTE | 2025-04-05 13:53 | A.OFFVIS_ITS ---
Vital Signs 04/05/25 13:58 BP 98/55 L Blood Pressure Location Lt brachial Position Sitting Respiration 16 Pulse 76 Pulse Source Pulse Oximeter Pulse Oximetry (%) 100 Oxygen Delivery Method Room Air Intake Visit Reasons: S/P Right Dx GNB Customer Training Specialist Required: No Accompanied by: Self / Same As Patient Allergies ciprofloxacin (From CIPRO) Allergy (Severe, Verified 04/05/25 14:04) GI PAIN vancomycin Allergy (Severe, Verified 04/05/25 14:04) Anaphylaxis HPI Comments Details: The patient is a 49 year old female presenting for a follow-up visit to discuss the results of a diagnostic genicular nerve block for right knee pain. She underwent the diagnostic block 10 days ago, which provided 100% relief and numbness for about 4 hours before the pain returned to baseline. She describes the procedure as painful, with pressure, but not awful. The patient also reports a recent visit to the emergency room on Tuesday for an episode of tachycardia, with a heart rate of 230 bpm. She was diagnosed with supraventricular tachycardia (SVT) and treated twice with intravenous adenosine, which caused a feeling of chest heaviness. She was subsequently started on metoprolol 25 mg, and has upcoming appointments for a heart monitor and a cardiology follow-up next month. The patient notes she was previously on propranolol for headaches, but it was discontinued about a month ago due to low blood pressure, which may have precipitated the tachycardia event. The patient also has a procedure scheduled for her back pain on the of this month. - Location: The patient reports pain in the right knee. - Procedure-related pain: The recent diagnostic genicular nerve block was described as painful, with sensations of pressure. - Relieving Factors: A recent diagnostic genicular nerve block provided relief for approximately 4 hours. - Analgesia: The patient received a diagnostic genicular nerve block 10 days ago, which provided 4 hours of pain relief. - She notes that 1 mg of Ativan given for a previous procedure was not effective. - She reports taking gabapentin, but finds it ineffective. [facility] Medical History COVID Somnolence, daytime TANA (obstructive sleep apnea) Allergic rhinitis Bronchial asthma Trigger finger Dysuria Obesity, morbid, BMI 40.0-49.9 Encounter for Papanicolaou smear for cervical cancer screening Asthma Insomnia Crohn's disease Surgical History History of removal of laparoscopic gastric banding device Hx of hand surgery History of carpal tunnel surgery Hx of laparoscopic gastric banding Hx of breast reduction, elective Family History Father HIV (human immunodeficiency virus infection) Mother Hypertension Maternal Grandmother Diabetes mellitus Maternal Grandfather Hypertension Lymphoma Paternal Grandfather No problems noted. 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 - Musculoskeletal: Reports pain in the right knee and back. - Neurological: Reports a history of headaches. Physical Exam Exam Exam: General: awake, alert, oriented. Answers questions appropriately. Fully engaged in examination. Skin: warm, dry, intact HEENT: Normocephalic. Hearing intact. Cardiac: External chest normal in appearance. Respiratory: No cough, audible wheezing or stridor. Abdomen: without gross distension. MS: No obvious swelling or deformities. Able to transition from sit to stand unassisted. Ambulates with bilaterally normal heel strike and toe off Neurological: Oriented to person, place, time and situation. Thought process intact. No gait abnormalities appreciated. Psychiatric: Appropriate mood and affect. Good judgment and insight. Vital Signs: Last Vital Signs Pulse 76 04/05/25 13:58 Resp 16 04/05/25 13:58 BP 98/55 L 04/05/25 13:58 Pulse Ox 100 04/05/25 13:58 Oxygen Delivery Method Room Air 04/05/25 13:58 Results Reviewed Results Reviewed: 01/04/23 PROCEDURE: MR SPINE LUMBAR without CONTRAST FINDINGS: Routine spinal anatomy is presumed. There are no comparison examinations. The last well-formed intervertebral disc is annotated as L5-S1. A saved screen has been sent to PACS for reference. Normal lumbar alignment is demonstrated. Vertebral heights are well maintained. Bone marrow signal is within normal limits, and no suspicious osseous lesion is identified. Conus medullaris is unremarkable. Paraspinal soft tissues and visualized portions of the abdomen and pelvis are unremarkable. At T12-L1 no significant disc bulging. No central canal or neural foraminal narrowing. At L1-2 there is no significant disc bulging. No central canal or neural foraminal narrowing. At L2-3 there is no significant disc bulging. Mild facet arthropathy. No central canal or neural foraminal narrowing. At L3-4 there is no significant disc bulging. Mild bilateral facet arthropathy. No central canal or neural foraminal narrowing. At L4-5 there is mild annular bulging within the left foraminal region. Bilateral facet arthropathy with mild ligamentum flavum thickening. Mild neural foraminal narrowing greater on the left. No central canal narrowing. At L5-S1 there is disc desiccation. Mild annular bulging. Mild facet ar thropathy. Mild neural foraminal narrowing. No central canal narrowing. IMPRESSION: No evidence of acute fracture or traumatic subluxation of the lumbar spine. Mild spondylitic change of the lumbar spine as described. Assessment & Plan Assessment & Plan (1) Right knee pain: Code(s): M25.561 - Pain in right knee Category: Medical Plan The plan is to proceed with a genicular nerve radiofrequency ablation for the patient's right knee pain, given the positive but temporary response to the diagnostic block. The procedure will be scheduled in the operating room with sedation to improve comfort, as she found the diagnostic block painful and reported that 1 mg of Ativan was previously ineffective. Due to the recent cardiac event, the specific sedation plan will be confirmed with the performing physician, as it may be adjusted from IV medication to an alternative like oral Ativan. Scheduling for the knee procedure will likely be in April, pending insurance authorization. For her upcoming back procedure on April 16, which will not have IV sedation, Valium will be prescribed for pre-procedure anxiety, as she has confirmed she has a ride home. Regarding her tachycardia, she will continue metoprolol 25 mg ER as prescribed. She is to follow up with cardiology and complete her scheduled heart monitor study. Patient was informed and verbally consented to the use of an ambient scribe for clinic note documentation during this visit. I discussed the results of the recent diagnostic genicular nerve block, noting that the 4 hours of good pain relief indicates she is a candidate for a radiofr equency ablation (RFA) of the same nerves for longer-lasting relief. I explained the RFA procedure involves heating the nerves to block pain signals. Given her experience with pain during the block, I recommended scheduling the RFA with sedation. I informed her that due to the new cardiac issue, I would consult with the performing physician about the most appropriate sedation method, which might be an oral medication instead of IV. For her separate back procedure on the , I agreed to prescribe Valium to be taken beforehand, and confirmed she has transportation arranged. I let her know that RFA scheduling is dependent on insurance and will likely be in April. Patient Instructions: - We will schedule you for a radiofrequency ablation (nerve burning) procedure for your right knee pain, which should provide longer pain relief. - This procedure will be done with sedation to make you comfortable and will likely be scheduled in April. - For your back procedure on the , you will be prescribed Valium to take beforehand. - You must have a tow truck driver to take you home after both the knee and back procedures. - Continue taking your new heart medication, Metoprolol, as prescribed. - Be sure to attend your upcoming heart monitor appointment and your follow-up with the risk specialist. Coding Level of Care Code Est Pt Level 3 (14583) Add On Problem Visit Only Diagnoses Right knee pain M25.561
[2025-04-05 13:58] VITALS: BP 98/55; PULSE 76; RESP 16; O2SAT 100
== END 2025-04-05 14:20 | disposition home or self-care (01) ==
LOC: HO.PMC 13:49
PROVIDERS: PCP Internal Medicine; Visit Provider Registered Nurse Emergency
DX: M25.561 Pain in right knee (principal)
CPT/HCPCS: 99213; G2211

== ENCOUNTER → 2025-04-05 13:48 | Outpatient (BNVA) | payer MEDICARE, MEDICAID, SELFPAY | PROVIDERS: PCP Internal Medicine; Visit Provider Registered Nurse Emergency | DX: M25.561 Pain in right knee (principal); Z98.890 Other specified postprocedural states | CPT/HCPCS: 99212 ==

== ENCOUNTER → 2025-04-08 14:51 | Outpatient (REF) | payer MEDICARE, MEDICAID, SELFPAY ==
--- OUTSIDE RECORDS SUMMARY | 2024-02-07 04:50 | XMS_ITS ---
Author Organization [facility] Address [address] [place] [phone] Care Team Providers Care Acetone Recovery Worker Name Role Phone Ceci Blackburn M.D. Primary Care Provider Emerson Schwartz [phone] REASON FOR VISIT Patient presents today for GERD, CROHN'S. Encounters Encounter Location Date Provider Diagnosis [facility] [address] [facility] [address] [place] [phone] 02/07/2024 Emerson Canales Plan Of Treatment Next Appt Details Provider Name:Emerson Canales , 07/30/2025 09:10:00 AM, [address] [place] [address], Suite [facility], [place], [address], Progress Notes * STEPHIE DORSEYDOB: [birth year] (49 yo F)Acc No.[id number]:02/07/2024 Progress Notes Patient: Halley MACKSaraiCHRISTIANSTEPHIE Provider: Olu Canales MD :1975 A ge:48 Y S ex:Female Date:02/07/2024 Address:[address] [place], [place] Pcp:Ceci Blackburn M.D. Subjective: * Chief Complaints: * P atient presents today for GERD, CROHN'S. * The named appointment provid er may or may not be the originator of this progress note, and it is not deemed complete until electronically signed by the appointment provider. Sign off status: Pending * Provider: Olu Canales MD Date: 1 Generated for Arpit ribeiro/Enmanuel/Daniel on: 1 06/09/2024 12:07 PM EST
--- OUTSIDE RECORDS SUMMARY | 2025-04-08 21:19 | XMS_ITS | Encounter Summary ---
Author Organization [email or web address] Address [address] [place] [address] Care Team Providers Care Mid Level Provider Name Role Phone Ceci Billings MD Primary Care Provide r Reason for Visit * Reason Comments Med Refill Encounter Details Date Type Department Care Team (Late st Contact Info) Description 07/18/2024 Refill [facility] [address] [place] [address] Ceci Billings MD [address] [place] [address] Social History Tobacco Use Types Packs/Day Years [...] Care Team (Late st Contact Info) Description 04/09/2025 11:00 AM EST Office Visit [facility] [address] [place] [phone] Loretta Vega NP [address] [place] [address] 06/19/2025 9:00 AM EST Office Visit [address] [phone] Ceci Billings MD [address] [place] [phone] documented as of this encounter Visit Diagnoses Not on filedocumented in this encounter Additional Health Concerns Assessment Noted Time PHQ-9 Depression Total Score: 0 10/05/19 24 9:33 AM EDT documented as of this encounter Care Teams Mid Level Provider Relationship Specialty Start Date End Date Ceci Billings MD [address] [place] [address] [phone] PCP - General Family Medicine 06/02/20 documented as of this encounter
--- OUTSIDE RECORDS SUMMARY | 2025-04-08 21:19 | XMS_ITS | Encounter Summary ---
Author Organization [employer] Address [address] [place] [address] Care Team Providers Care Brewery Worker Name Role Phone Ceci Billings MD Primary Care Provide r Encounter Details Date Type Department Care Team (Late st Contact Info) Description 12/25/2024 Orders Only [facility] [address] [place] [address] Ceci Billings MD [address] [place] [address] Social History Tobacco Use Types Packs/Day Years [...] Description 04/09/2025 11:00 AM EST Office Visit [facility] [address] [place] [phone] Loretta Vega NP [address] [place] [address] 06/19/2025 9:00 AM EST Office Visit [address] [address] Ceci Billings MD [address] [place] [phone] documented as of this encounter Visit Diagnoses Not on filedocumented in this encounter Additional Health Concerns Assessment Noted Time PHQ-9 Depression Total Score: 4 12/21/19 25 11:24 AM EDT documented as of this encounter Care Teams Brewery Worker Relationship Specialty Start Date End Date Ceci Billings MD [address] [place] [phone] PCP - General Family Medicine 06/02/20 documented as of this encounter
--- OUTSIDE RECORDS SUMMARY | 2025-04-08 21:19 | XMS_ITS | Encounter Summary ---
Author Organization [employer] Address [address] [place] [address] Care Team Providers Care Merchandise Clerk Name Role Phone Ceci Billings MD Primary Care Provide r Reason for Visit * Reason Comments Med Refill Encounter Details Date Type Department Care Team (Late st Contact Info) Description 01/03/2024 Refill [facility] [address] [place] [address] Ceci Billings MD [address] [place] [address] Social History Tobacco Use Types Packs/Day Years [...] Description 04/09/2025 11:00 AM EST Office Visit [facility] [address] [place] [phone] Loretta Vega NP [address] [place] [address] 06/19/2025 9:00 AM EST Office Visit [address] [address] Ceci Billings MD [address] [place] [address] documented as of this encounter Visit Diagnoses Not on filedocumented in this encounter Additional Health Concerns Assessment Noted Time PHQ-9 Depression Total Score: 0 10/05/19 24 9:33 AM EDT documented as of this encounter Care Teams Merchandise Clerk Relationship Specialty Start Date End Date Ceci Billings MD [address] [place] [phone] PCP - General Family Medicine 06/02/20 documented as of this encounter
--- OUTSIDE RECORDS SUMMARY | 2025-04-08 21:19 | XMS_ITS | Encounter Summary ---
Author Organization [employer] Address [address] [facility] [address]t [place] [address] Care Team Providers Care Franchise Specialist Name Role Phone Ceci Billings MD Primary Care Provide r Reason for Visit * Reason Comments Med Refill Encounter Details Date Type Department Care Team ([facility] Contact Info) Description 04/30/2022 Refill [facility] [address] [place] [address] Jesús Vale MD [address] [place] [address] Influenza-like illness Social History Tobacco Use Types [...] Department Care Team (Late Contact Info) Description 04/09/2025 11:00 AM EST Office Visit [facility] [address] [place] [address] Loretta Vega, FAUSTINA [address] [place], [place] [phone] 06/19/2025 9:00 AM EST Office Visit [facility] [address] [place], [place] [phone] Ceci Billings MD [address] [place], [place] [phone] documented as of this encounter Visit Diagnoses Diagnosis Influenza-like illness SVT (supraventricular tachycardia) ([facility])- Primary Other specified cardiac dysrhythmias documented in this encounter Care Teams Franchise Specialist Relationship Specialty Start Date End Date Ceci Billings MD [address] [place], [place] [phone] PCP - General Family Medicine 06/02/20 documented as of this encounter
--- OUTSIDE RECORDS SUMMARY | 2025-04-08 21:19 | XMS_ITS | Encounter Summary ---
Author Organization [employer] Address [address] [place] [address] Care Team Providers Care Machine Hamper Maker Name Role Phone Ceci Billings MD Primary Care Provide r Encounter Details Date Type Department Care Team ([facility] Contact Info) Description 10/16/2024 Telephone [facility] [address] [place] [address] Ceci Billings MD [address] [place] [address] Social History Tobacco Use Types Packs/Day Years [...] Description 04/09/2025 11:00 AM EST Office Visit [facility] [address] [place] [phone] Loretta Vega NP [address] [place] [phone] 06/19/2025 9:00 AM EST Office Visit [address] [address] Ceci Billings MD [address] [place] [phone] documented as of this encounter Visit Diagnoses Not on filedocumented in this encounter Additional Health Concerns Assessment Noted Time PHQ-9 Depression Total Score: 0 09/08/19 25 9:03 AM EDT documented as of this encounter Care Teams Machine Hamper Maker Relationship Specialty Start Date End Date Ceci Billings MD [address] [place] [phone] PCP - General Family Medicine 06/02/20 documented as of this encounter
--- OUTSIDE RECORDS SUMMARY | 2025-04-08 21:19 | XMS_ITS | Encounter Summary ---
Author Organization [employer] Address [address] [place] [address] Care Team Providers Care Slotter Operator Name Role Phone Ceci Billings MD Primary Care Provide r Encounter Details Date Type Department Care Team (Late st Contact Info) Description 07/03/2024 Orders Only [facility]ED[facility] [address] [place] [address] Provider, MD Chito Social History Tobacco Use [...] Upcoming Encounters Date Type Department Care Team ([facility] st Contact Info) Description 04/09/2025 11:00 AM EST Office Visit [facility] MEDICINE [address] [place] [phone] Loretta Vega NP [address] [place] [address] 06/19/2025 9:00 AM EST Office Visit [facility] [address] [place] [phone] Ceci Billings MD [address] [place], [place] [phone] documented as of this encounter Procedures Procedure [...] Breast Bilateral Mammography 07/12/2024 1:45 PM EDT [facility] 07/20/2024 4:18 PM EDT [facility] [address] [place] [address] Mammography Report Signed Patient: Windy Mcfarlane MR# : [id number] : 1975 Acct:[id number] Age/Sex: 48 / F ADM Date: 07/12/24 Loc: HO.MAMMO Attending Dr: Ceci Peacock MD Ordering Physician: Ceci Billings MD Results: 2Benign Findings Date of Service: 07/12/24 Follow Up: 1 Year From Orig inal Mammogram Procedure(s): MM tomosynthesis screening BI Accession Number(s): [id number] cc: Ceci Billings MD EXAMINATION: MM SCREENING [...] 07/20/24 1614 DD/ 1345 TD/TT: 07/12/24 1401 Plywood Matcher: Procedure Note Donotuseinterpreter, Image - [facility] [address] [place] [address] Mammography Report Signed Patient: Windy McfarlaneMR# : [id number] : 1975Acct:[id number] Age/Sex: 48 / FADM Date: 07/12/24 Loc: HO.MAMMO Attending Dr: Ceci Peacock MD Ordering Physician: Ceci Billings MDResults: 2Benign Findings Date of Service: 07/12/24Follow Up: 1 Year From Orig inal Mammogram Procedure(s): MM tomosynthesis screening BI Accession Number(s): [id number] cc: Ceci Billings MD EXAMINATION: MM SCREENING [...] their next mammogram. Electronically signed by: Zulema Bruon DO 07/20/2024 04:14 PM EDT Dictated By: Zulema Bruno DO Signed By: <Electronically signed by Zulema Bruno DO in OV> 07/20/24 1614 DD/ 1345 TD/TT: 07/12/24 1401 Plywood Matcher: us Ceci Peacock MD IMG BI PROCEDURES Fin al Result * Bacterial Vaginosis (07/03/2024 12:00 AM EDT) TRICHOMONAS VAGINALIS DETECTION BY PCR NOT DETECTED Not Detect [facility] BACTERIAL VAGINOSIS DETECTION BY PCR NEGATIVE Negative [facility] Comment:The BV organism targ ets of [...] DETECTION BY PCR NOT DETECTED Not Detect [facility] Jeni glab krusei PCR NOT DETECTED Not Detect [facility] 07/03/2024 07/03/2024 us Generic External Data Provider LAB MICROBIOLOGY - GENERAL ORDERABLES Final Result [facility] [address] [place] [phone] * Chlamydia/N. Gonorrhoeae RNA, TMA, Urogenitial (07/03/2024 12:00 AM EDT) CT PCR NOT DETECTED Not Detect. [facility] Comment:A not detected test result does [...] psychologicalconsequences. NG PCR NOT DETECTED Not Detect. [facility] Comment:A not detected test result does [...] medical, social or psychologicalconsequences. 07/03/2024 07/03/2024 Narrative [facility] - 07/04/2024 5:16 AM EDT Vaginal us Generic External Data Provider LAB MICROBIOLOGY - GENERAL ORDERABLES Final Result [facility] [address] [place] [phone] * Colonoscopy (08/23/2023 11:53 AM EDT) Historical Provider HEALTH MAINTENANCE Final Result documented in this encounter Visit Diagnoses Not on filedocumented in this encounter Additional Health Concerns Assessment Noted Time PHQ-9 Depression Total Score: 0 10/05/19 24 9:33 AM EDT documented as of this encounter Care Teams Slotter Operator Relationship Specialty Start Date End Date Ceci Billings MD [address] [place] [phone] PCP - General Family Medicine 06/02/20 documented as of this encounter
--- OUTSIDE RECORDS SUMMARY | 2025-04-08 21:19 | XMS_ITS | Encounter Summary ---
Author Organization [employer] Address [address] [facility] [place] [address] Care Team Providers Care Flower Machine Operator Name Role Phone Ceci Billings MD Primary Care Provide r Encounter Details Date Type Department Care Team ([facility] Contact Info) Description 04/23/2024 Orders Only [facility] [address] [place] [address] Ceci Billings MD [address] [place] [address] Social History Tobacco Use Types Packs/Day Years [...] Description 04/09/2025 11:00 AM EST Office Visit [facility] [address] [place] [phone] Loretta Vega NP [address] [place] [address] 06/19/2025 9:00 AM EST Office Visit [facility] [address] [place] [phone] Ceci Billings MD [address] [place] [address] documented as of this encounter Visit Diagnoses Not on filedocumented in this encounter Additional Health Concerns Assessment Noted Time PHQ-9 Depression Total Score: 0 10/05/19 24 9:33 AM EDT documented as of this encounter Care Teams Flower Machine Operator Relationship Specialty Start Date End Date Ceci Billings MD [address] [place] [phone] PCP - General Family Medicine 06/02/20 documented as of this encounter
--- OUTSIDE RECORDS SUMMARY | 2025-04-08 21:19 | XMS_ITS | Encounter Summary ---
Author Organization [employer] Address [address] [place] [address] Care Team Providers Care Superintendent Menagerie Name Role Phone Ceci Billings MD Primary Care Provide r Encounter Details Date Type Department Care Team ([facility] Contact Info) Description 04/03/2025 Orders Only GENERIC EXTERNAL DATA DEPARTMENT Provider, Generic External Data Social History Tobacco Use Types Packs/Day Years [...] Description 04/09/2025 11:00 AM EST Office Visit [facility] MEDICINE [address] [place] [address] [phone] Loretta Vega NP [address] [place] [address] 06/19/2025 9:00 AM EST Office Visit [facility] MEDICINE [address] [place], [place] [phone] Ceci Billings MD [address] [place], [place] [phone] documented as of this encounter Procedures Procedure Name Priority Date/Time Associated Diagnosis Comments HIGH SENSITIVITY TROPONIN I Routine 04/03/2025 12:19 AM EST documented in this encounter Results * (ABNORMAL) High Sensitivity Troponin I (04/03/2025 12:19 AM EST) TROPONIN I HIGH SENSITIVITY 46.1(H) <3.5 - 17.0 ng/L [facility] Comment:The Harman high sens itivity Troponin-I results should beused in conjunction with other diagnostic information suchas ECG, clinical observations and information, and patientsymptoms to aid in the diagnosis of [place]. 04/03/2025 12:1 9 AM EST 04/03/2025 12:21 AM EST us Generic External Data Provider LAB BLOOD ORDERAB LES Final Result Performing Organization Address City/State/[facility] Co de Phone Number [facility] [address] [place] [phone] documented in this encounter Visit Diagnoses Not on filedocumented in this encounter Additional Health Concerns Assessment Noted Time PHQ-9 Depression Total Score: 10 025 9:44 AM EST documented as of this encounter Care Teams Superintendent Menagerie Relationship Specialty Start Date End Date Ceci Billings MD [address] [place] [phone] PCP - General Family Medicine 06/02/20 documented as of this encounter
--- OUTSIDE RECORDS SUMMARY | 2025-04-08 21:19 | XMS_ITS | Clinical Summary ---
Author Organization [employer] Address [address] [place] [address] 7[address] [place] [address] Care Team Providers Care Cage Clerk Name Role Phone Ceci Billings MD Primary Care Provide r Allergies Active Allergy Reactions Criticality Noted Date Comments Ciprofloxacin 05/26/2010 Other reaction(s): GI upset Other reaction(s): Unknown Clindamycin 10/04/2023 Vancomycin 05/26/2010 Other reaction(s): unspecified Other reaction(s): Unknown Medications triamcinolone (Kenalog) 0.1 % creamIndication s:Contact dermatitis, [...] daily. 60 tablet 11 024 2024 Active fluticasone furoate (Arnuity Ellipta) 100 MCG/ACT [...] AT BEDTIME 90 tablet 1 025 Active gabapentin (Neurontin) 600 MG tabletIndicatio ns:Lumbar radiculopathy, chronic TAKE 1 TABLET(600 MG) BY MOUTH THREE TIMES DAILY 90 tablet 2 025 Active fexofenadine (Allergy Relief) 180 MG tablet TAKE 1 TABLET BY MOUTH EVERY DAY NEEDED 90 tablet 025 Active clonazePAM (KlonoPIN) 0.5 MG tablet Take 1 tablet by mouth if needed in the morning, at noon, and at bedtime for anxiety. 023 Active galcanezumab (Emgality) 120 MG/ML auto-injector Inject 120 mg under the skin every 30 (thirty) days. 025 Active pantoprazole (ProtoNix) 40 MG EC tablet Take 1 tablet by mouth Once per day. 019 Active nabumetone (Relafen) 500 MG tablet Take 1 tablet by mouth 2 times daily. 025 Active montelukast (Singulair) 10 MG tablet Take 1 tablet by mouth at bedtime. 024 Active sertraline (Zoloft) 100 MG tablet Take 1 tablet by mouth Once per day. Active SUMAtriptan (Imitrex) 50 MG tablet Take 1 tablet by mouth 1 (one) time if needed for migraine. May repeat dose after 2 hours. Max 200 mg in 24 hours Active Reguloid 400 MG capsule Take 2 capsules by mouth 2 times daily. With at least 8 ounces of water or juice Active metoprolol succinate XL (Toprol-XL) 25 MG 24 hr tablet Take 1 tablet by mouth Once per day. Active ustekinumab (Stelara) injection Inject 1 mL under the skin every 30 (thirty) days. Active Tirzepatide-Mack ght Management (Zepbound) 15 MG/0.5ML solution auto-injector Inject 15 mg under the skin every 7 (seven) days. Active Tirzepatide-Mack ght Management (Zepbound) 10 MG/0.5ML solution auto-injectorIn dications:Class 3 severe obesity with serious comorbidity and body mass index (BMI) of 45.0 to 49.9 in adult, unspecified obesity type (HCC) Inject 0.5 mL (10 mg) under the skin 1 (one) time per week. 2 mL 1 025 2024 Discontinued(M ed list cleanup (will not trigger notification to Pharmacy)) propranolol (Inderal) 20 MG tabletIndicatio ns:Migraine without aura, not refractory TAKE 1 TABLET(20 MG) BY MOUTH EVERY DAY 90 tablet 1 025 2024 Discontinued fexofenadine (Allergy Relief) 180 MG tablet TAKE 1 TABLET BY MOUTH EVERY DAY NEEDED 90 tablet 2024 Discontinued(R eorder (will not trigger notification to Pharmacy)) gabapentin (Neurontin) 600 MG tabletIndicatio ns:Lumbar radiculopathy, chronic Take 1 tablet (600 mg) by mouth 3 times daily. 90 tablet 2 025 2024 Discontinued Tirzepatide-Mack ght Management (Zepbound) 12.5 MG/0.5ML solution auto-injectorIn dications:BMI 40.0-44.9, adult (CMS/HCC) (HCC) Inject 0.5 mL (12.5 mg) under the skin 1 (one) time per week. INJECT ONE PEN (=12.5 MG) SUBCUTANEOUSLY ONCE A WEEK 2 mL 025 2024 Discontinued(M ed list cleanup (will not trigger notification to Pharmacy)) propranolol (Inderal) 20 MG tabletIndicatio ns:Migraine without aura, not refractory TAKE 1 TABLET(20 MG) BY MOUTH EVERY DAY 90 tablet 1 025 2024 Discontinued(S top taking at discharge) Active Problems Problem Noted Date Diagnosed Date [...] appointment I will inquie about PA for violettariley Assessment & Plan (10/05/2023 12:37 PM EDT): [...] Controlled continue with same interventions Severe obesity (CMS/[facility]) 08/05/2022 Multiple joint pain 08/05/2022 Hand pain [...] to 20 mmHg, continue to follow-up with statue carver Mild persistent asthma 03/01/2016 Osteopenia 03/01/2016 Allergic [...] Encounters Date Type Department Care Team Description 04/04/[address] [phone] Ceci Billings MD ER Follow-up 04/03/2025 Orders Only GENERIC EXTERNAL DATA DEPARTMENT Provider, Generic External Data 04/02/2025 Orders Only GENERIC EXTERNAL DATA DEPARTMENT Provider, Generic External Data 03/23/2025 Refill [facility] [address] [place] [phone] Ceci Billings MD 03/22/2025 Refill [facility] [address] [place] [phone] Ceci Billings MD Migraine without aura, not refractory 03/19/2025 9:00 AM EST Office Visit [facility] [address] [place] [phone] Ceci Billings MD Venous insufficiency (Primary Dx); Dietary counseling; Exercise counseling; Class 3 severe obesity due to excess calories with serious comorbidity and body mass index (BMI) of 40.0 to 44.9 in adult (HCC); Lumbar radiculopathy, chronic; Moderate persistent asthma, unspecified whether complicated 03/19/2025 Travel 03/18/2025 Telephone [facility] [address] [place] [phone] Ceci Billings MD Chart Prep 03/13/2025 Refill [facility] [address] [place] [phone] Ceci Billings MD Lumbar radiculopathy, chronic 03/11/2025 Patient Outreach [address] [phone] Ceci Billings MD Pre-visit Planning ((Unable to reach for PVP screening, LVM) to be completed in office ) 01/25/2025 Orders Only [facility] External Provider, [facility] from Last 3 Months Immunizations Immunization Administration [...] Description 04/09/2025 11:00 AM EST Office Visit [facility] [address] [place] [phone] Loretta Vega NP [address] [place] [address] 06/19/2025 9:00 AM EST Office Visit [facility] [address] [place] [phone] Ceci Billings MD [address] [place] [address] Health Maintenance Due Date Last Done Comments [...] TROPONIN I Routine 04/03/2025 12:19 AM EST HIGH SENSITIVITY TROPONIN I Routine 04/02/2025 8:48 PM EST HOLD LAVENDER - POSSIBLE HEMATOLOGY Routine 04/02/2025 6:33 PM EST TSH W/REFLEX TO FT4 Routine 04/02/2025 6 :33 PM EST APTT Routine 04/02/2025 6:33 PM EST PROTHROMBIN TIME-INR Routine 04/02/2025 6:33 PM EST HIGH SENSITIVITY TROPONIN I Routine 04/02/2025 6:33 PM EST COMPREHENSIVE METABOLIC PANEL Routine 04/02/2025 6:33 PM EST CBC WITH AUTO DIFFERENTIAL Routine 04/02/2025 6:33 PM EST VASC US LOWER EXTREMITY VENOUS DUPLEX BILATERAL [...] AM EDT ZZZ HISTORICAL HPV E6/E7 RFLX JESISCA 16 18/45 Routine 11/09/2021 2:40 PM EDT from Last 3 Months or Most Recently Relevant to Health Maintenance Results * (ABNORMAL) High Sensitivity Troponin I (04/03/2025 12:19 AM EST) Only the most recent of3 resultswithin the time period is included. TROPONIN I HIGH SENSITIVITY 46.1(H) <3.5 - 17.0 ng/L [facility] Comment:The Harman high sens itivity Troponin-I results should beused in conjunction with other diagnostic information suchas ECG, clinical observations and information, and patientsymptoms to aid in the diagnosis of NH. 04/03/2025 12:1 9 AM EST 04/03/2025 12:21 AM EST Generic External Data Provider LAB BLOOD ORDERAB LES Final Result Performing Organization Address [facility]/ZIP Co de Phone Number [facility] [address] [place] [phone] * Hold Lavender - Possible Hematology (04/02/2025 6:33 PM EST) Pathologist [facility] Hold Lavender - Possible Hematololgy SEE NOTE [facility] Comment:Specimen will be hel d untested for 8 hours. Call Hematologyif testing is desired. 04/02/2025 6:33 PM EST 04/02/2025 6:36 PM EST Generic External Data Provider HISTORICAL/NON OR DERABLE LABS Final Result Performing Organization Address [facility] Co de Phone Number [facility] [address] [place] [phone] * TSH with Reflex to Free T4 (04/02/2025 6:33 PM EST) TSH reflex Free T4 3.35 0.32 - 4.0 uIU/mL [facility] 04/02/2025 6:33 PM EST 04/02/2025 6:35 PM EST us Generic External Data Provider LAB BLOOD ORDERAB LES Final Result [facility] [address] [place] [address] [phone] * (ABNORMAL) CBC auto differential (04/02/2025 6:33 PM EST) White Blood Count 5.4 4.8 - 10.8 X10*3/uL [facility] Red Blood Count 4.57 4.20 - 5.50 X10*6/uL [facility] Hemoglobin 12.3 12.0 - 16.0 g/dl [facility] Hematocrit 39.5 37.0 - 47.0 % [facility] Mean Corpuscular Volume 86.4 80.0 - 98.0 fL [facility] Mean Corpuscular Hemoglobin 26.9(L) 27.0 - 33.0 pg [facility] Mean Corpuscular HGB Conc 31.1 31.0 - 35.0 g/dl [facility] Red Cell Distribution Width 13.2 11.0 - 16.0 % [facility] Platelet Count 221 160 - 400 X10*3/uL [facility] Mean Platelet Volume 10.6 9.4 - 12.3 fL [facility] Neutrophils Percent Auto 57.7 45 - 73 % [facility] Imm Gran Pct Auto 0.4 0.0 - 0.4 % [facility] Lymphocytes Percent Auto 29.4 20 - 40 % [facility] Monocytes Percent Auto 10.8 2 - 11 % [facility] Eosinophils Percent Auto 1.1 0 - 4 % [facility] Basophils Percent Auto 0.6 0 - 2 % [facility] NRBC Pct Auto 0.0 0.0 - 0.2 /100WBC [facility] Neutrophils Absolute Auto 3.1 2.0 - 8.3 x10*3/uL [facility] Imm Gran Abs Auto 0.02 0.00 - 0.03 X10*3/uL [facility] Lymphocytes Absolute Auto 1.6 1.2 - 4.9 X10*3/uL [facility] Monocytes Absolute Auto 0.6 0.1 - 1.2 X10*3/uL [facility] Eosinophils Absolute Auto 0.1 0.0 - 0.4 X10*3/uL [facility] Basophils Absolute Auto 0.0 0.0 - 0.2 X10*3/uL [facility] NRBC Abs Auto 0.000 0.0 - 0.012 X10*3/uL [facility] 04/02/2025 6:33 PM EST 04/02/2025 6:35 PM EST Generic External Data Provider LAB BLOOD ORDERAB LES Final Result Performing Organization Address [facility] de Phone Number [facility] [address] [place] [phone] * Partial Thromboplastin Time, Activated (APTT) (04/02/2025 6:33 PM EST) Partial Thromboplastin Time 28.9 26.7 - 34.1 SEC [facility] 04/02/2025 6:33 PM EST 04/02/2025 6:35 PM EST Generic External Data Provider LAB BLOOD ORDERAB LES Final Result Performing Organization Address [facility] de Phone Number [facility] [address] [place] [phone] * Prothrombin Time-INR (04/02/2025 6:33 PM EST) Prothrombin Time 11.7 11.2 - 13.5 SEC [facility] INTERNATIONAL NORM RATIO 1.0 0.9 - 1.1 [facility] Comment:INTERNATIONAL NORMAL IZED RATIO (INR) REFERENCE RANGES Reference RangeFor patients not on anticoagulant therapy: 0.9 - 1.1INR ranges for oral anticoagulanttherapy:For prevention and treatment of venous thrombosis and pulmonary embolism: 2.0 - 3.0For acute myocardial infarction with aspirin therapy: 2.0 - 3.0For acute myocardial infarction without aspirin therapy: 3.0 - 4.0For patients with mechanical prosthetic heart valves: 2.5 - 3.5 04/02/2025 6:33 PM EST 04/02/2025 6:35 PM EST us Generic External Data Provider LAB BLOOD ORDERAB LES Final Result [facility] [address] [place] [address] [phone] * (ABNORMAL) Comprehensive Metabolic Panel (04/02/2025 6:33 PM EST) Sodium 140 135 - 145 mmol/L [facility] Potassium 4.5 3.3 - 5.1 mmol/L [facility] Comment:Slight Hemolysis.Int erpret result with caution. Chloride 110(H) 96 - 108 mmol/L [facility] Carbon Dioxide 23 22 - 29 mmol/L [facility] Anion Gap 12 12 - 20 [facility] Urea Nitrogen (BUN) 15 9 - 16 mg/dL [facility] Creatinine, Serum 1.11 0.5 - 1.4 mg/dL [facility] Creatinine Clr Calc Pharmacy 71.1 [facility] Comment:Provided height and weight: 162.56 cm,99.79 kg.eGFR (calculated from the MDRD study equation) and eCrCl(calculated from the Cockcroft-Gault equation) are based ondifferent parameters and may not yield comparable results.If eCrCl result is absurd, please check patient'sheight/weight. Estimated Glomerular Filt Rate 52 [facility] Comment:Chronic Kidney Disea se: Estimated GFR < 60 mL/min/1.32o7Tuvqbx Kidney Disease: Estimated GFR < 15 mL/min/1.73m2 Glucose 126(H) 60 - 115 mg/dL [facility] Calcium 8.1(L) 8.4 - 10.2 mg/dL [facility] Bilirubin, Total 0.2 0.0 - 1.0 mg/dL [facility] Aspartate Amino Transferase 22 5 - 31 U/L [facility] Comment:Slight Hemolysis.Int erpret result with caution. Alanine Aminotransferase 14 0 - 31 U/L [facility] Total Protein 7.1 6.5 - 8.0 g/dL [facility] Albumin Level 3.9 3.5 - 5.0 g/dL [facility] Alkaline Phosphatase 74 39 - 117 U/L [facility] 04/02/2025 6:33 PM EST 04/02/2025 6:35 PM EST us Generic External Data Provider LAB BLOOD ORDERAB LES Final Result Performing Organization Address City/State/[facility] Co de Phone Number [facility] [address] [place] [address] [phone] * [facility] Lower Extremity Venous Duplex Bilateral (01/25/2025 9:01 AM EDT) 01/25/2025 9:01 AM EDT Narrative [facility] - 01/25/2025 10:15 AM EDT [place] [address] Ultrasound Report Signed Patient: Windy Mcfarlane MR# : [id number] : 1975 Acct:[id number] Age/Sex: 49 / F ADM Date: 01/25/25 Loc: .US Attending Dr: Elvia MIRAMONTES Ordering Physician: Elvia Winslow Date of Service: 01/25/25 Procedure(s): US venous duplex LE BI Accession Number(s): [id number] cc: Ceci Billings MD; Elvia Winslow Reason [...] OV> 01/25/25 1012 DD/ 09 TD/TT: 01/25/25926 Application Administrator: Procedure Note Donotleeinterpreter, Image - 01/25/2025 [place] [address] Ultrasound Report Signed Patient: Windy McfarlaneMR# : [id number] : 1975Acct:[id number] Age/Sex: 49 / FADM Date: 01/25/25 Loc: .US Attending Dr: Elvia MIRAMONTES Ordering Physician: Elvia Winslow Date of Service: 01/25/25 Procedure(s): US venous duplex LE BI Accession Number(s): [id number] cc: Ceci Billings MD; Elvia Winslow Reason [...] OV> 01/25/25 1012 DD/ 0901 TD/TT: 01/25/25926 Application Administrator: us [facility] External Provider CV VASC ULAR PROCEDURES Final Result [facility] [address] [place] [phone] * Lipid Panel, Standard (08/07/2024 2:25 PM EDT) Triglycerides 63 <150 mg/dL [facility] Comment:Desirable Triglyceri de: less than 150 mg/dLBorderline High Triglyceride 150-199 mg/dLHigh Triglyceride: 200-499 mg/dLVery High Triglyceride: greater than or equal to 5OO mg/dL Cholesterol 154 <200 mg/dL [facility] Comment:Desirable Cholestero l: less than 200 mg/dLBorderline High Cholesterol: 200-239 mg/dLHigh Cholesterol: greater than 239 mg/dL LDL Cholesterol Calculated 92 <100 mg/dL [facility] Comment:Desirable LDL: less than 100 mg/dLNear Optimal/Above Optimal LDL: 110- 129 mg/dLBorderline High LDL: 130-159 mg/dLHigh LDL: 160-189 mg/dLVery High LDL: greater than or equal to 190 mg/dL HDL Cholesterol 50 >40 mg/dL [facility] Comment:Desirable HDL: great er than 40 mg/dL Note: This HDL assay may give artificially low results in patients with liver disease. Blood Venous blood specimen / Unknown 08/07/2024 2:25 PM EDT 08/07/2024 4:10 PM EDT us Ceci Peacock MD LAB BLOOD ORDERABLES Final Result [facility] [address] [place] [phone] * BI Mammogram Screening Tomosynthesis Bilateral (07/12/2024 1:45 PM EDT) Anatomical Region Laterality Modality Breast Bilateral Mammography 07/12/2024 1:45 PM EDT Narrative 07/20/2024 4:18 PM EDT [facility] [address] [place] [address] Mammography Report Signed Patient: Windy Mcfarlane MR# : [id number] : 1975 Acct:[id number] Age/Sex: 48 / F ADM Date: 07/12/24 Loc: HO.MAMMO Attending Dr: Ceci Peacock MD Ordering Physician: Ceci Billings MD Results: 2Benign Findings Date of Service: 07/12/24 Follow Up: 1 Year From Orig inal Mammogram Procedure(s): MM tomosynthesis screening BI Accession Number(s): [id number] cc: Ceci Billings MD EXAMINATION: MM SCREENING [...] 07/20/24 1614 DD/ 1345 TD/TT: 07/12/24 1401 Application Administrator: Procedure Note Donotuseinterpreter, Image - 07/20/2024 [facility] [address] [place], [place] [address] Mammography Report Signed Patient: Windy McfarlaneMR# : [id number] : 1975Acct:[id number] Age/Sex: 48 / FADM Date: 07/12/24 Loc: HO.MAMMO Attending Dr: Ceci Peacock MD Ordering Physician: Ceci Billings MDResults: 2Benign Findings Date of Service: 07/12/24Follow Up: 1 Year From Orig inal Mammogram Procedure(s): MM tomosynthesis screening BI Accession Number(s): [id number] cc: Ceci Billings MD EXAMINATION: MM SCREENING [...] 07/20/24 1614 DD/ 1345 TD/TT: 07/12/24 1401 Application Administrator: Ceci Peacock MD IMG BI PROCEDURES Fin al Result * HM PAP/HPV (07/03/2024 11:57 AM EDT) Historical Provider HEALTH MAINTENANCE Final Result * Hm Colonoscopy (08/23/2023 11:53 AM EDT) Historical Provider HEALTH MAINTENANCE Final Result * HPV E6/E7 RFLX JESSICA 16 18/45 (11/09/2021 2:40 PM EDT) HPV mRNA E6/E7 rflx Not Detected Not Detected [facility] Comment: Methodology: Turner In-Mediated Amplification This assay detects E6/E7 viral messenger RNA (mRNA) from 14 high-risk HPV types (16,18,31,33,35,39,45,51,52,56,58,59,66,68). Cervical sources are required for HPV testing. If a vaginal source from a patient who has had a total hysterectomy with removal of cervix was submitted, please contact the testing laboratory for alternative testing options. For additional information, please refer to http://education.[employer]/faq/SEL157z2 (This link if provided for information/ educational purposes only.) THIS TEST WAS PERFORMED AT: [facility] [address] [place] [address] [address]LO[address],[place] [address] TIN DICKEY MD 11/09/2021 2:40 PM EDT us Kylee Angora HISTORICAL/NON ORDERABLE LABS Fi nal Result Performing Organization Address City/State/[facility] Co de Phone Number [facility]where [address] from Last 3 Months or Most Recently Relevant to Health Maintenance Insurance MEDICARE [facility] STANDARD Care Teams Cage Clerk Relationship Specialty Start Date End Date Ceci Billings MD [address] [place] [phone] PCP - General Family Medicine 06/02/20
--- OUTSIDE RECORDS SUMMARY | 2025-04-08 21:19 | XMS_ITS | Encounter Summary ---
Author Organization [employer] Address [address] [place] [address] Care Team Providers Care Atmospheric Scientist Name Role Phone Ceci Billings MD Primary Care Provide r Reason for Visit * Reason Comments Med Refill Encounter Details Date Type Department Care Team (Late st Contact Info) Description 06/22/2024 Refill [facility] [address] [place] [address] Ceci Billings MD [address] [place] [address] Migraine without aura, not refractory Social History [...] Description 04/09/2025 11:00 AM EST Office Visit [facility] [address] [place] [phone] Loretat Vega NP [address] [place] [address] 06/19/2025 9:00 AM EST Office Visit [address] [phone] Ceci Billings MD [address] [place] [address] documented as of this encounter Visit Diagnoses Diagnosis Migraine without aura, not refractory SVT (supraventricular tachycardia) (CMS/HCC)- Primary Other specified cardiac dysrhythmias documented in this encounter Additional Health Concerns Assessment Noted Time PHQ-9 Depression Total Score: 0 10/05/19 24 9:33 AM EDT documented as of this encounter Care Teams Atmospheric Scientist Relationship Specialty Start Date End Date Ceic Billings MD [address] [place] [address] PCP - General Family Medicine 06/02/20 documented as of this encounter
--- OUTSIDE RECORDS SUMMARY | 2025-04-08 21:19 | XMS_ITS | Encounter Summary ---
Author Organization [employer] Address [address] [place] [address] 7[address] [place] [address] Care Team Providers Care Computer Help Desk Representative Name Role Phone Ceci Billings MD Primary Care Provide r Encounter Details Date Type Department Care Team (Late st Contact Info) Description 05/27/2022 Telephone [facility] [address] [place] [phone] Ceci Billings MD [address] [place] [address] [phone] Social History Tobacco Use Types Packs/Day Years [...] Description 04/09/2025 11:00 AM EST Office Visit [address] [phone] Loretta Vega NP [address] [place] [address] 06/19/2025 9:00 AM EST Office Visit [address] [phone] Ceci Billings MD [address] [place], [place] [phone] documented as of this encounter Visit Diagnoses Not on filedocumented in this encounter Care Teams Computer Help Desk Representative Relationship Specialty Start Date End Date Ceci Billings MD [address] [place] [address] PCP - General Family Medicine 06/02/20 documented as of this encounter
--- OUTSIDE RECORDS SUMMARY | 2025-04-08 21:19 | XMS_ITS | Patient Health Record ---
Author Organization [facility] Address [address] [place] [phone] Care Team Providers Care Burnt Lime Drawer Name Role Phone Ceci Blackburn M.D. Primary Care Provider Emerson Schwartz [phone] Allergies Allergen (clinical drug ingredient) Drug/Non Drug Allergy documented on EMR Reaction Allergy Type Onset Date Status ciprofloxacin cipro (uncoded) Unknown Allergy Active vancomycin Vancomycin HCl Unknown Drug Allergy A ctive Reason For Referral No Information Medications Medication [...] MG/20ML Solution Intrathecal Three times a day Not-Taking/DE N Nabumetone 500 MG Tablet Oral; Duration: [...] Capsule as directed Orally every 6 hrs Not-Taking/DE N Arnuity Ellipta 100 MCG/ACT Aerosol Powder [...] MG Capsule Oral; Duration: 30 Days Active Ertngouwzo-SVQX-Xlj feine 50-325-40 MG Tablet TAKE 1 TO 2 TABLETS BY MOUTH EVERY 4 HOURS NEEDED. NOT TO EXCEED 6 TABLETS PER 24 HOURS Oral; Duration: 5 Not-Taking/DE N Zolpidem Tartrate 10 MG Tablet TAKE [...] She does not smoke nor use a or significant amounts of alcohol. She does not [...] Status Risk Notes Problem Colon cancer screening (404201492) Colon cancer screening (Z12.11) Active confirmed Problem Irritable bowel syndrome (30195675) Irritable bowel syndrome (K58.9) Active confirmed Problem Constipation (15251984) Constipation (K59.00) Active confirmed Problem Crohn's disease of small AND large intestines (45944367) Crohn's disease of both small and large intestine without complication (K50.80) Active confirmed Problem Nausea (974174640) Nausea (R11.0) Active confir med Problem Therapeutic drug monitoring, quantitative (regime/therapy) (92926210) Encounter for therapeutic drug level monitoring (Z51.81) Active confirmed Problem Dysphagia (41942317) Dysphagia (R13.10) Active confirmed Problem Crohn's disease of small AND large intestines (66630254) Crohns disease of both small and large intestine without complication (K50.80) Active confirmed Problem Gastroesophageal reflux disease (395651642) Gastroesophageal reflux disease, esophagitis presence not specified (K21.9) Active confirmed Problem Chronic gastritis (3130315) Chronic gastritis (K29.50) Active confirmed Problem Diarrhea (98146909) Diarrhea, unspecified type (R19.7) Active confirmed Problem Crohn's disease of small AND large intestines (42186494) Crohn''s disease of both small and large intestine without complication (K50.80) Active confirmed Problem Erythematous ski n nodule (R22.9) Active confirmed Problem Vaginal candidiasis (75463245) Vaginal candidiasis (B37.3) Active confirmed Problem Drug monitoring done (493041873) Encounter for therapeutic drug monitoring (Z51.81) Active confirmed Problem Gastroesophageal reflux disease (disorder) (903850800) Chronic GERD (K21.9) Active confirmed Vital Signs Temperature 97.2 degrees Fahrenheit 01/09/2025 Blood pressure diastolic 01 mm Hg 01/09/2025 Height 65.5 in 01/09/2025 Blood pressure systolic 001 mm Hg 01/09/2025 Weight 254.2 lbs 01/09/2025 BMI 41.65 kg/m2 01/09/2025 Encounters Encounter Location Date Provider Diagnosis [facility] [address] [place] [phone] 06/05/2024 Emerson Canales Crohn's disease of both small and large intestine without complication K50.80 ; Irritable bowel syndrome K58.9 ; Chronic GERD K21.9 and Vaginal candidiasis B37.3 [facility] [address] [place] [phone] 01/09/2025 Emerson Canales Crohns disease of jaquelin th small and large intestine without complication K50.80 and Constipation K59.00 [facility] [address] [place] [phone] 05/01/2024 Emerson Canales [facility] [address] [place] [phone] 06/05/2024 Emerson Canales [facility] [address] [place] [phone] 06/14/2024 Emerson Canales [facility] [address] [place] [phone] 06/22/2024 Emerson Canales [facility] [address] [place] [phone] 10/24/2024 Emerson Canales Assessments Encounter Date Diagnosis [...] regimen including MiraLAX, fiber supplement, and another uyfi-bpx-xhnygkr stool softener such as Colace. I advised [...] regimen including MiraLAX, fiber supplement, and another rmrl-fno-jgwbkpr stool softener such as Colace. I advised [...] 09:10:00 AM, [address], [address], [place], [address], Insurance Providers Payer Name Payer Address Payer Phone Subscriber Number Group Number Insured Name Patient Relationship to Insured Coverage Start Date Coverage End Date MEDICARE OF [place] [address] [place] [address] [id number] STEPHIE DORSEY Self - patient is the insured MEDICAID OF [employer] [address] [place] [address] [id number] STEPHIE DORSEY Self - patient is the insured Medical (General) History Medical History History ICD Code Colonoscopy 07-07-2012 Crohn's colitis-diagnosed in 2000- colonoscopy in 02/2009 at [facility] with diffuse colitis/ileitis-has been treated with Remicade, Humira, and azathioprine in the past at [facility]- Stephie reports that the mesalamines [...] 01/2019 for the Crohn's and psoriasis Denies TN,DM,CVA,Lung disease,renal dise ase Anemia- sees Dr. Pulido/Dr. Dulala- rece deb IV Iron in the past [...]
--- OUTSIDE RECORDS SUMMARY | 2025-04-08 21:19 | XMS_ITS | Encounter Summary ---
Author Organization [employer] Address [address] [facility] [address] [place] [address] Care Team Providers Care Astrophysics Teacher Name Role Phone Ceci Billings MD Primary Care Provide r Reason for Visit * Reason Onset Date Comments ER Follow-up 04/04/2025 Encounter Details Date Type Department Care Team ([facility] st Contact Info) Description 04/04/2025 Telephone [facility] MEDICINE [address] [place] [address] Ceci Billings MD [address] [place] [address] ER Follow-up Social History Tobacco Use Types Packs/Day Years [...] encounter Miscellaneous Notes * Telephone Encounter - Donna North RN - 04/04/2025 1:48 PM EST Noted. Upon [facility] chart review, patient was hospitalized 04/02-04/03 for SVT and elevated troponin. Atadmission, patients HR was in the 200s. Patient received 6 mg of adenosine with no resolution and then an additional 12 mg of adenosine. Patient then converted to sinus rhythm. Cardiology evaluated patient and recommended starting a low-dose of metoprolol XL and outpatient EP consult and stress test. Patient was discharged home with metoprolol prescription for 25mg daily. TC placed to patient [phone] for status check. Patient confirms she has p/u metoprolol medication and took her first dose last night. Patient is aware of 3 day holter monitor test being scheduled on 04/08/25, of cardiology appointment on 05/02/25 at 2:30pm and another cardiology appointment on 09/17/25 at 2:15pm. Patient did not have any questions/concerns at this time. Patient accepted HDF appointment for 04/09/25 at 11am with GAUTAM Vega (PCP did not have any upcoming HDF's available). Patient to f/u PRN. * Telephone Encounter - Macarena Marin - 04/04/2025 12:16 PM EST Patient calling to report ED visit on : Date: 04/02 Hospital: [facility] Seen for: tachycardia Symptomatic No *if yes message should go to Triage Patient advised will forward to team nurse for follow up documented in this encounter Plan of Treatment Upcoming Encounters Date Type Department Care Team (Late st Contact Info) Description 04/09/2025 11:00 AM EST Office Visit [facility] MEDICINE [address] [place] [phone] Loretta Vega NP 230 [place] [address] 06/19/2025 9:00 AM EST Office Visit [facility] [address] [place] [address] Ceci Billings MD [address] [place] [address] documented as of this encounter Visit Diagnoses Not on filedocumented in this encounter Additional Health Concerns Assessment Noted Time PHQ-9 Depression Total Score: 10 025 9:44 AM EST documented as of this encounter Care Teams Astrophysics Teacher Relationship Specialty Start Date End Date Ceci Billings MD [address] [place] [address] PCP - General Family Medicine 06/02/20 documented as of this encounter
--- OUTSIDE RECORDS SUMMARY | 2025-04-08 21:19 | XMS_ITS | Encounter Summary ---
Author Organization [employer] Address [address] [facility] [address] [place] [address] Care Team Providers Care Copper Plate Printer Name Role Phone Ceci Billings MD Primary Care Provide r Reason for Visit * Reason Onset Date Comments Med Refill 10/02/2024 Encounter Details Date Type Department Care Team (Late st Contact Info) Description 10/02/2024 Refill [facility] MEDICINE [address] [place] [address] Ceci Billings MD [address] [place] [address] Morbid obesity (CMS/HCC) Social History Tobacco Use [...] Description 04/09/2025 11:00 AM EST Office Visit [facility] [address] [place] [address] Loretta Vega NP 230 [place] [address] 06/19/2025 9:00 AM EST Office Visit [facility] [address] [place] [address] Ceci Billings MD [address] [place] [address] documented as of this encounter Visit Diagnoses Diagnosis Morbid obesity (CMS/HCC) (HCC) Morbid obesity SVT (supraventricular tachycardia) (CMS/HCC)- Primary Other specified cardiac dysrhythmias documented in this encounter Additional Health Concerns Assessment Noted Time PHQ-9 Depression Total Score: 0 09/08/19 25 9:03 AM EDT documented as of this encounter Care Teams Copper Plate Printer Relationship Specialty Start Date End Date Ceci Billings MD [address] [place] [address] PCP - General Family Medicine 06/02/20 documented as of this encounter
--- OUTSIDE RECORDS SUMMARY | 2025-04-08 21:19 | XMS_ITS | Encounter Summary ---
Author Organization [employer] Address [address] [facility] [address] 7t [place] [address] Care Team Providers Care Pack Operator Name Role Phone Ceci Billings MD Primary Care Provide r Encounter Details Date Type Department Care Team (Late st Contact Info) Description 07/27/2023 Orders Only [facility] MED[facility] [address] [place] [address] Ceci Billings MD 230 [place] [address] Class 3 severe obesity with serious comorbidity [...] Description 04/09/2025 11:00 AM EST Office Visit [facility] MEDICINE [address] [place] [address] Loretta Vega NP [address] [place] [address] 06/19/2025 9:00 AM EST Office Visit [address] [phone] Ceci Billings MD [address] [place] [phone] documented as of this encounter Visit Diagnoses Diagnosis Class 3 severe obesity with serious comorbidity and body mass index (BMI) of 45.0 to 49.9 in adult, unspecified obesity type (HCC)- Primary SVT (supraventricular tachycardia) (CMS/HCC)- Primary Other specified cardiac dysrhythmias documented in this encounter Additional Health Concerns Assessment Noted Time PHQ-9 Depression Total Score: 5 07/07/19 24 10:12 AM EDT documented as of this encounter Care Teams Pack Operator Relationship Specialty Start Date End Date Ceci Billings MD [address] [place] [address] PCP - General Family Medicine 06/02/20 documented as of this encounter
--- OUTSIDE RECORDS SUMMARY | 2025-04-08 21:19 | XMS_ITS | Encounter Summary ---
Author Organization [employer] Address [address] [facility] 7t [place] [address] Care Team Providers Care Smelting Engineer Name Role Phone Ceci Billings MD Primary Care Provide r Reason for Visit * Reason Onset Date Comments Med Refill 10/31/2024 Encounter Details Date Type Department Care Team (Late st Contact Info) Description 10/31/2024 Refill [facility] MEDICINE 230 [place] [address] Ceci Billings MD [address] [place] [address] Multiple joint pain Social History Tobacco Use [...] Office Visit [facility] MEDICINE [address] [place] [address] Loretta Vega NP 230 [place] [address] 06/19/2025 9:00 AM EST Office Visit [address] [address] Ceci Billings MD [address] [place] [address] documented as of this encounter Visit Diagnoses Diagnosis Multiple joint pain Pain in joint, multiple sites SVT (supraventricular tachycardia) (CMS/HCC)- Primary Other specified cardiac dysrhythmias documented in this encounter Additional Health Concerns Assessment Noted Time PHQ-9 Depression Total Score: 0 09/08/19 25 9:03 AM EDT documented as of this encounter Care Teams Smelting Engineer Relationship Specialty Start Date End Date Ceci Billings MD [address] [place] [address] PCP - General Family Medicine 06/02/20 documented as of this encounter
--- OUTSIDE RECORDS SUMMARY | 2025-04-08 21:19 | XMS_ITS | Encounter Summary ---
Author Organization [employer] Address [address] [facility] [address] 7t [place] [address] Care Team Providers Care Assistant Produce Manager Name Role Phone Ceci Billings MD Primary Care Provide r Reason for Visit * Reason Comments Med Refill Encounter Details Date Type Department Care Team (Late st Contact Info) Description 11/30/2023 Refill [facility] MEDICINE 230 [place] [address] Ceci Billings MD 230 [place] [address] Muscle spasm Social History Tobacco Use Types [...] [facility] MED[facility]INE [address] [place] [address] Loretta Vega NP 230 [place] [address] 06/19/2025 9:00 AM EST Office Visit [address] [address] Ceci Billings MD [address] [place] [address] documented as of this encounter Visit Diagnoses Diagnosis Muscle spasm Spasm of muscle SVT (supraventricular tachycardia) (CMS/HCC)- Primary Other specified cardiac dysrhythmias documented in this encounter Additional Health Concerns Assessment Noted Time PHQ-9 Depression Total Score: 0 10/05/19 24 9:33 AM EDT documented as of this encounter Care Teams Assistant Produce Manager Relationship Specialty Start Date End Date Ceci Billings MD [address] [place] [address] PCP - General Family Medicine 06/02/20 documented as of this encounter
--- OUTSIDE RECORDS SUMMARY | 2025-04-08 21:19 | XMS_ITS | Encounter Summary ---
Author Organization [employer] Address [address] [facility] [address] 7[address] [place] [address] Care Team Providers Care Reading Recovery Teacher Name Role Phone Ceci Billings MD Primary Care Provide r Encounter Details Date Type Department Care Team (Late st Contact Info) Description 08/15/2024 Orders Only [facility] [address] [place] [address] Provider, MD [place] Social History Tobacco Use [...] Upcoming Encounters Date Type Department Care Team ([facility] st Contact Info) Description 04/09/2025 11:00 AM EST Office Visit [facility] MEDICINE [address] [place] [address] Loretta Vega NP [address] [place] [address] 06/19/2025 9:00 AM EST Office Visit [facility]INE [address] [place] [address] Ceci Billings MD [address] [place] [address] documented as of this encounter Procedures Procedure [...] documented as of this encounter Care Teams Reading Recovery Teacher Relationship Specialty Start Date End Date Ceci Billings MD [address] [place] [address] [place] [address] PCP - General Family Medicine 06/02/20 documented as of this encounter
--- OUTSIDE RECORDS SUMMARY | 2025-04-08 21:19 | XMS_ITS | Encounter Summary ---
Author Organization [employer] Address [address] [facility] [address] 7t [place] [address] Care Team Providers Care Rn Research Name Role Phone Ceci Billings MD Primary Care Provide r Reason for Visit * Reason Onset Date Comments Medication Question 03/12/2024 Encounter Details Date Type Department Care Team ([facility] Contact Info) Description 03/12/2024 Telephone [facility] MEDICINE [address] [place] [address] Ceci Billings MD [address] [place] [address] Medication Question Social History Tobacco Use Types [...] questions on med PA . Callback number [phone] documented in this encounter Plan of Treatment Upcoming Encounters Date Type Department Care Team (Late st Contact Info) Description 04/09/2025 11:00 AM EST Office Visit [facility] MEDICINE [address] [place] [address] Loretta Vega NP 230 [place] [address] 06/19/2025 9:00 AM EST Office Visit [facility] MEDICINE [address] [place] [address] Ceci Billings MD [address] [place] [address] documented as of this encounter Visit Diagnoses Not on filedocumented in this encounter Additional Health Concerns Assessment Noted Time PHQ-9 Depression Total Score: 0 10/05/19 24 9:33 AM EDT documented as of this encounter Care Teams Rn Research Relationship Specialty Start Date End Date Ceci Billings MD [address] [place] [address] PCP - General Family Medicine 06/02/20 documented as of this encounter
--- OUTSIDE RECORDS SUMMARY | 2025-04-08 21:19 | XMS_ITS | Clinical Summary ---
Author Organization [address] [facility] Address 175 [place] [address] Phone Care Team Providers Care Assistant Dean Name Role Phone Katrina Sherwood MD Primary Care Provider [phone] Allergies Active Allergy Reactions Criticality Noted Date [...] Care Team Description 02/13/2025 Telephone [facility]opedic [facility] [place] [address] [phone] Juan Moody DPM 02/11/2025 1:00 PM EDT Office Visit Orthopedic [place] [address] [phone] Juan Moody DPM Posterior tibial tendinitis of [...] Upcoming Encounters Date Type Department Care Team ([facility] st Contact Info) Description 04/15/2025 1:15 PM EST Office Visit [facility] [address] [phone] Juan Moody DPM [address] [address] Health Maintenance Due Date Last Done Comments [...] Insurance MEDICAID - [place] MEDICARE Care Teams Assistant Dean Relationship Specialty Start Date End Date Katrina Sherwood MD [address] [place] [phone] PCP - General Internal Medicine 01/02/14
--- OUTSIDE RECORDS SUMMARY | 2025-04-08 21:19 | XMS_ITS | Encounter Summary ---
Author Organization [employer] Address [address] [place] [address] 7t [place] [address] Care Team Providers Care Logistics Program Manager Name Role Phone Ceci Billings MD Primary Care Provide r Reason for Visit * Reason Comments Med Refill Encounter Details Date Type Department Care Team (Late Contact Info) Description 12/02/2022 Refill [facility] MEDICINE [address] [place] [address] Name, MD Yaniv [address] [place] [address] Insomnia, unspecified type Social History Tobacco Use [...] Description 04/09/2025 11:00 AM EST Office Visit [facility] MEDICINE [address] [place] [address] Loretta Vega NP [address] [place], [place] [phone] 06/19/2025 9:00 AM EST Office Visit [facility] MEDICINE [address] [place] [phone] Ceci Billings MD [address] [place] [phone] documented as of this encounter Visit Diagnoses Diagnosis Insomnia, unspecified type SVT (supraventricular tachycardia) (CMS/HCC)- Primary Other specified cardiac dysrhythmias documented in this encounter Additional Health Concerns Assessment Noted Time PHQ-9 Depression Total Score: 0 08/07/19 23 9:07 AM EDT documented as of this encounter Care Teams Logistics Program Manager Relationship Specialty Start Date End Date Ceci Billings MD [address] [place] [address] PCP - General Family Medicine 06/02/20 documented as of this encounter
== END ==
LOC: HO.CARD 14:51
PROVIDERS: PCP Internal Medicine; Visit Provider Internal Medicine Cardiovascular Disease
DX: I49.1 Atrial premature depolarization (principal); R00.2 Palpitations; I47.10 Supraventricular tachycardia, unspecified; R07.89 Other chest pain; R79.89 Other specified abnormal findings of blood chemistry
CPT/HCPCS: 93242

== ENCOUNTER → 2025-04-08 14:55 | Outpatient (BNV) | payer MEDICARE, MEDICAID, SELFPAY | PROVIDERS: PCP Internal Medicine; Visit Provider Internal Medicine | DX: I47.10 Supraventricular tachycardia, unspecified (principal) | CPT/HCPCS: 93244 ==

== ENCOUNTER 2025-04-11 09:24 | Outpatient (AMB) | payer MEDICARE, MEDICAID, SELFPAY ==
--- OUTSIDE RECORDS SUMMARY | 2025-04-09 11:00 | XMS_ITS | Encounter Summary ---
Author Organization [employer] Address [address] [facility] [place] [address] Care Team Providers Care Cardio Tech Name Role Phone Ceci Billings MD Primary Care Provide r Reason for Visit * Reason Comments hospital follow up Encounter Details Date Type Department Care Team ([facility] Contact Info) Description 04/09/2025 11:00 AM EST Office Visit [facility] MEDICINE [address] [place] [address] Loretta Vega NP [address] [place] [address] SVT (supraventricular tachycardia) (CMS/HCC) (Primary Dx) Social History Tobacco Use [...] Sign Reading Time Taken Comments Blood Pressure 100/68 04/09/2025 11:07 AM EST Pulse 84 04/09/2025 11:07 AM EST Temperature 36.9 C (98.5 F) 04/09/2025 11:07 AM EST Respiratory Rate 21 04/09/2025 11:07 AM EST Oxygen Saturation 98% 04/09/2025 11:07 AM EST Inhaled Oxygen Concentration - - Weight 110 kg (242 lb) 04/09/2025 11:07 AM EST Height 165.1 cm (5' 5 ) 04/09/2025 11:07 AM EST Body Mass Index 40.27 04/09/2025 11:07 AM EST documented in this encounter Progress Notes * Loretta Vega NP - 04/09/2025 11:00 AM EST Windy Chowdhury, 49-year-old female - History of migraines, previously treated with migraine shot (dosha) with good effect - On February 2025, started propranolol; experienced low blood pressure even without medication - On April 02, 2025, experienced very rapid heart rate, went to hospital, found to have elevated heart enzymes, admitted and started on medications to slow heart rate - Since April 02, 2025, persistent headache, different from prior migraines, present daily, comesand goes - Headache associated with lightheadedness, worsens with standing up quickly or bending over, requires sitting down to avoid falling - Reports dizziness described as lightheadedness, not spinning - Denies bleeding, constipation, diarrhea, urinary symptoms, chest pain, or chest pressure - Reports prior similar symptoms when on propranolol, less severe than current episode Upon [facility] chart review, patient was hospitalized 04/02-04/03 for SVT and elevated troponin. At admission, patients HR was in the 200s. Patient received 6 mg of adenosine with no resolution and then an additional 12 mg of adenosine. Patient then converted to sinus rhythm. Cardiology evaluated patient and recommended starting a low-dose of metoprolol XL and outpatient EP consult and stress test. Patient was discharged home with metoprolol prescription for 25mg daily. Patient is aware of 3 day holter monitor test being scheduled on 04/08/25, of cardiology appointment on 05/02/25 at 2:30pm and another cardiology appointment on 09/17/25 at 2:15pm. Patient did not have any questions/concerns at this time. [facility] (04/03/25 Patient presented for evaluation of dizziness and lightheadedness. Found to have HR in the 200's bpm. Received 6 mg of adenosine with no resolution. Subsequently received 12 mg of adenosine and converted to sinus rhythm. Remained in sinus rhythm overnight. Troponin trended up, likely due to myocardial injury, not suggestive of ACS. Evaluated by cardiology who recommended starting low dose metoprolol, outpatient EP consult and stress test. Patient discharged home. Medication changes that occurred during hospitalization include: Added Metoprolol succinate 25 mg once daily Changed: none Discontinued: none Patient Reported History Confirmed taking metoprolol as directed Reported propanol was discontinued months ago Confirmed active medication list Reported using Zepbound 15 mg which they receive from provider Owen De Oliveira. Reported picks up medication at their office in [place] Problem List[1] Medical History[2] Allergies[3] Review of Systems Gastrointestinal: Negative for abdominal distention. Genitourinary: Negative for difficulty urinating. Neurological: Positive for dizziness and light-headedness. BP 100/68 (BP Location: Right arm, Patient Position: Sitting, BP Cuff Size: Large adult) Pulse 84 Temp 98.5 ??F (36.9 ??C) (Oral) Resp 21 Ht 5' 5 (1.651 m) Wt 242 lb (110 kg) SpO2 98% BMI 40.27 kg/m?? Physical Exam Vitals reviewed. Constitutional: Appearance: She is obese. HENT: Head: Normocephalic and atraumatic. Nose: Nose normal. Eyes: Conjunctiva/sclera: Conjunctivae normal. Cardiovascular: Rate and Rhythm: Normal rate and regular rhythm. Heart sounds: Normal heart sounds. Pulmonary: Effort: Pulmonary effort is normal. Breath sounds: Normal breath sounds. Musculoskeletal: Cervical back: Normal range of motion and neck supple. Neurological: General: No focal deficit present. Mental Status: She is alert. - CARDIOVASCULAR: Heart rate 84 beats per minute; blood pressure 100/60 millimeters of mercury. Results: Orders Only on 04/03/2025 Component Date Value Ref Range Status TROPONIN I HIGH SENSITIVITY 04/03/2025 46.1 (H) <3.5 - 17.0 ng/L Final The Harman high sensitivity Troponin-I results should beused in conjunction with other diagnostic information suchas ECG, clinical observations and information, and patientsymptoms to aid in the diagnosis of TX. Orders Only on 04/02/2025 Component Date Value Ref Range Status Hold Lavender - Possible Hematolol* 04/02/2025 SEE NOTE Final Specimen will be held untested for 8 hours. Call Hematologyif testing is desired. White Blood Count 04/02/2025 5.4 4.8 - 10.8 X10*3/uL Final Red Blood Count 04/02/2025 4.57 4.20 - 5.50 X10*6/uL Final Hemoglobin 04/02/2025 12.3 12.0 - 16.0 g/dl Final Hematocrit 04/02/2025 39.5 37.0 - 47.0 % Final Mean Corpuscular Volume 04/02/2025 86.4 80.0 - 98.0 fL Final Mean Corpuscular Hemoglobin 04/02/2025 26.9 (L) 27.0 - 33.0 pg Final Mean Corpuscular HGB Conc 04/02/2025 31.1 31.0 - 35.0 g/dl Final Red Cell Distribution Width 04/02/2025 13.2 11.0 - 16.0 % Final Platelet Count 04/02/2025 221 160 - 400 X10*3/uL Final Mean Platelet Volume 04/02/2025 10.6 9.4 - 12.3 fL Final Neutrophils Percent Auto 04/02/2025 57.7 45 - 73 % Final Imm Gran Pct Auto 04/02/2025 0.4 0.0 - 0.4 % Final Lymphocytes Percent Auto 04/02/2025 29.4 20 - 40 % Final Monocytes Percent Auto 04/02/2025 10.8 2 - 11 % Final Eosinophils Percent Auto 04/02/2025 1.1 0 - 4 % Final Basophils Percent Auto 04/02/2025 0.6 0 - 2 % Final NRBC Pct Auto 04/02/2025 0.0 0.0 - 0.2 /100WBC Final Neutrophils Absolute Auto 04/02/2025 3.1 2.0 - 8.3 x10*3/uL Final Imm Gran Abs Auto 04/02/2025 0.02 0.00 - 0.03 X10*3/uL Final Lymphocytes Absolute Auto 04/02/2025 1.6 1.2 - 4.9 X10*3/uL Final Monocytes Absolute Auto 04/02/2025 0.6 0.1 - 1.2 X10*3/uL Final Eosinophils Absolute Auto 04/02/2025 0.1 0.0 - 0.4 X10*3/uL Final Basophils Absolute Auto 04/02/2025 0.0 0.0 - 0.2 X10*3/uL Final NRBC Abs Auto 04/02/2025 0.000 0.0 - 0.012 X10*3/uL Final Sodium 04/02/2025 140 135 - 145 mmol/L Final Potassium 04/02/2025 4.5 3.3 - 5.1 mmol/L Final Slight Hemolysis.Interpret result with caution. Chloride 04/02/2025 110 (H) 96 - 108 mmol/L Final Carbon Dioxide 04/02/2025 23 22 - 29 mmol/L Final Anion Gap 04/02/2025 12 12 - 20 Final Urea Nitrogen (BUN) 04/02/2025 15 9 - 16 mg/dL Final Creatinine, Serum 04/02/2025 1.11 0.5 - 1.4 mg/dL Final Creatinine Clr Calc Pharmacy 04/02/2025 71.1 Final Provided height and weight: 162.56 cm,99.79 kg.eGFR (calculated from the MDRD study equation) and eCrCl(calculated from the Cockcroft-Gault equation) are based ondifferent parameters and may not yield comparable results.If eCrCl result is absurd, please check patient'sheight/weight. Estimated Glomerular Filt Rate 04/02/2025 52 Final Chronic Kidney Disease: Estimated GFR < 60 mL/min/1.34w3Aryqus Kidney Disease: Estimated GFR < 15 mL/min/1.73m2 Glucose 04/02/2025 126 (H) 60 - 115 mg/dL Final Calcium 04/02/2025 8.1 (L) 8.4 - 10.2 mg/dL Final Bilirubin, Total 04/02/2025 0.2 0.0 - 1.0 mg/dL Final Aspartate Amino Transferase 04/02/2025 22 5 - 31 U/L Final Slight Hemolysis.Interpret result with caution. Alanine Aminotransferase 04/02/2025 14 0 - 31 U/L Final Total Protein 04/02/2025 7.1 6.5 - 8.0 g/dL Final Albumin Level 04/02/2025 3.9 3.5 - 5.0 g/dL Final Alkaline Phosphatase 04/02/2025 74 39 - 117 U/L Final TROPONIN I HIGH SENSITIVITY 04/02/2025 <2.7 <3.5 - 17.0 ng/L Final The Harman high sensitivity Troponin-I results should beused in conjunction with other diagnostic information suchas ECG, clinical observations and information, and patientsymptoms to aid in the diagnosis of TX. Prothrombin Time 04/02/2025 11.7 11.2 - 13.5 SEC Final INTERNATIONAL NORM RATIO 04/02/2025 1.0 0.9 - 1.1 Final INTERNATIONAL NORMALIZED RATIO (INR) REFERENCE RANGES Reference RangeFor patients not on anticoagulant therapy: 0.9 - 1.1INR ranges for oral anticoagulanttherapy:For prevention and treatment of venous thrombosis and pulmonary embolism: 2.0 - 3.0For acute myocardial infarction with aspirin therapy:2.0 - 3.0For acute myocardial infarction without aspirin therapy: 3.0 - 4.0For patients with mechanical prosthetic heart valves: 2.5 - 3.5 Partial Thromboplastin Time 04/02/2025 28.9 26.7 - 34.1 SEC Final TSH reflex Free T4 04/02/2025 3.35 0.32 - 4.0 uIU/mL Final TROPONIN I HIGH SENSITIVITY 04/02/2025 19.9 (H) <3.5 - 17.0 ng/L Final The Harman high sensitivity Troponin-I results should beused in conjunction with other diagnostic information suchas ECG, clinical observations and information, and patientsymptoms to aid in the diagnosis of TX. Assessment & Plan SVT (supraventricular tachycardia) (CMS/HCC) Assessment & Plan SVT (supraventricular tachycardia) (CMS/HCC): - SVT managed with metoprolol. Cardiology follow-up scheduled for April 26, 2025, with consideration for possible cardioversion. - Continue metoprolol as prescribed. Will contact cardiology to communicate current symptoms and discuss possible medication adjustments. Document symptoms while wearing the night monitor. Cardiology follow-up on April 26, 2025, in [place] for evaluation and possible cardioversion. Orthostatic hypotension and presyncope: - Orthostatic hypotension and presyncope likely secondary to metoprolol and current cardiac management. Symptoms include lightheadedness and near-syncope with postural changes. - Recommended slow positional changes, increased fluid intake, and consideration of dietary salt within safe limits. Advised to document symptoms and to lay down with feet elevated if feeling faint. Will communicate with cardiology regarding symptoms and possible medication adjustments. No medication changes at this time pending further cardiology input. Appointments - Cardiology appointment in [place] on April 26, 2025 Current Medications[4] Based on our discussion, I have outlined the following instructions for you: - Keep taking metoprolol exactly as prescribed. - Write down your symptoms while you are wearing the heart monitor. - Change positions slowly (for example, stand up slowly). - Drink more fluids during the day. - Add some salt to your diet within safe limits (do not overdo it). - If you feel faint, lie down and raise your feet. - There are no medication changes right now; any changes will be decided after input from the heartspecialist. Next appointment(s): Cardiology follow-up on April 26, 2025, in [place] for evaluation and possible cardioversion. This note was drafted using Ambient (AI) technology. The patient/patient's guardian has been informed and has consented to the use of this technology: Yes [1] Patient Active Problem List Diagnosis Acute urinary tract infection Allergic rhinitis Anemia Anxiety Cellulitis of lower limb Chronic low back pain Crohn's disease of small and large intestines (HCC) Dizziness Dry eyes Erythema nodosum Chronic sinusitis Fibromyositis Insomnia Migraine without aura, not refractory Mild intermittent asthma Mild persistent asthma Moderate persistent asthma Morbid obesity (CMS/HCC) (HCC) Severe obesity (CMS/HCC) (HCC) Multiple joint pain Obstructive sleep apnea syndrome [...] for preventive care Venous insufficiency [2] No past medical history on file. [3] Allergies Allergen Reactions Ciprofloxacin Other reaction(s): GI upset Other reaction(s): Unknown Clindamycin Vancomycin Other reaction(s): unspecified Other reaction(s): Unknown [4] Current Outpatient Medications: acetaminophen (Tylenol 8 Hour) 650 MG ER tablet, TAKE 2 TABLETS(1300 MG) BY MOUTH EVERY 8 HOURS NEEDED FOR MILD PAIN. DO NOT CRUSH, CHEW, OR SPLIT, Disp: 40 tablet, Rfl: 0 albuterol (Ventolin HFA) 108 (90 Base) MCG/ACT inhaler, INHALE 2 PUFFS BY MOUTH THREE TIMES DAILY NEEDED, Disp: 18 g, Rfl: 3 clonazePAM (KlonoPIN) 0.5 MG tablet, Take 1 tablet by mouth if needed in the morning, at noon, and at bedtime for anxiety., Disp: , Rfl: dicyclomine (Bentyl) 20 MG tablet, TAKE 1 TABLET BY MOUTH IF NEEDED IN THE MORNING, AT NOON, AND ATBEDTIME, Disp: 90 tablet, Rfl: 1 docusate sodium (Colace) 100 MG capsule, Take 1 capsule (100 mg) by mouth 2 times daily., Disp: 180capsule, Rfl: 0 famotidine (Pepcid) 20 MG tablet, Take 1 tablet (20 mg) by mouth 2 times daily., Disp: 60 tablet, Rfl: 11 fexofenadine (Allergy Relief) 180 MG tablet, TAKE 1 TABLET BY MOUTH EVERY DAY NEEDED, Disp: 90 tablet, Rfl: 0 fluticasone furoate (Arnuity Ellipta) 100 MCG/ACT inhaler, Inhale 1 puff Once per day. Rinse mouth with water after use to reduce aftertaste and incidence of candidiasis. Do not swallow., Disp: 1 each, Rfl: 11 gabapentin (Neurontin) 600 MG tablet, TAKE 1 TABLET(600 MG) BY MOUTH THREE TIMES DAILY, Disp: 90 tablet, Rfl: 2 galcanezumab (Emgality) 120 MG/ML auto-injector, Inject 120 mg under the skin every 30 (thirty) days., Disp: , Rfl: metoprolol succinate XL (Toprol-XL) 25 MG 24 hr tablet, Take 1 tablet by mouth Once per day., Disp:, Rfl: montelukast (Singulair) 10 MG tablet, Take 1 tablet by mouth at bedtime., Disp: , Rfl: nabumetone (Relafen) 500 MG tablet, Take 1 tablet by mouth 2 times daily., Disp: , Rfl: pantoprazole (ProtoNix) 40 MG EC tablet, Take 1 tablet by mouth Once per day., Disp: , Rfl: Reguloid 400 MG capsule, Take 2 capsules by mouth 2 times daily. With at least 8 ounces of water orjuice, Disp: , Rfl: senna (Senokot) 8.6 MG tablet, Take 2 tablets (17.2 mg) by mouth 2 times daily., Disp: 360 tablet, Rfl: 1 sertraline (Zoloft) 100 MG tablet, Take 1 tablet by mouth Once per day., Disp: , Rfl: SUMAtriptan (Imitrex) 50 MG tablet, Take 1 tablet by mouth 1 (one) time if needed for migraine. Mayrepeat dose after 2 hours. Max 200 mg in 24 hours, Disp: , Rfl: Tirzepatide-Weight Management (Zepbound) 15 MG/0.5ML solution auto-injector, Inject 15 mg under theskin every 7 (seven) days., Disp: , Rfl: triamcinolone (Kenalog) 0.1 % cream, Apply topically if needed in the morning and at bedtime (pain and swelling)., Disp: 30 g, Rfl: 0 ustekinumab (Stelara) injection, Inject 1 mL under the skin every 30 (thirty) days., Disp: , Rfl: zolpidem (Ambien) 10 MG tablet, TAKE 1 TABLET BY MOUTH AT BEDTIME, Disp: 30 tablet, Rfl: 1 documented in this encounter Plan of Treatment Upcoming Encounters Date Type Department Care Team (Late st Contact Info) Description 06/19/2025 9:00 AM EST Office Visit [facility] MEDICINE [address] [place] [address] Ceci Billings MD [address] [place] [address] documented as of this encounter Visit Diagnoses Diagnosis SVT (supraventricular tachycardia) (CMS/HCC)- Primary Other specified cardiac dysrhythmias documented in this encounter Additional Health Concerns Assessment Noted Time PHQ-9 Depression Total Score: 10 025 9:44 AM EST documented as of this encounter Care Teams Cardio Tech Relationship Specialty Start Date End Date Ceci Billings MD [address] [place] [id number] PCP - General Family Medicine 06/02/20 documented as of this encounter
--- NOTE | 2025-04-11 09:46 | MHC.OFFVIS ---
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 She has bilateral leg pain , swelling and cramping. 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 She was referred from cardiology due to leg swelling and currently complains of pain and numbness in her left leg. She also has a history of back pain, which she describes as an echo in her feet, and acknowledges a diagnosis of neuropathy. Her past surgical history is significant for varicose vein laser ablation procedures on both legs, performed around 2014 at [facility] in [place]. She also previously had a Lap-Band, which was subsequently removed because it was ineffective. The patient denies a history of smoking or diabetes. She now presents for vascular evaluation [facility] Medical History COVID Somnolence, daytime TANA (obstructive sleep apnea) Allergic rhinitis Bronchial asthma Trigger finger Dysuria Obesity, morbid, BMI 40.0-49.9 Encounter for Papanicolaou smear for cervical cancer screening Asthma Insomnia Crohn's disease Surgical History History of removal of laparoscopic gastric banding device Hx of hand surgery History of carpal tunnel surgery Hx of laparoscopic gastric banding Hx of breast reduction, elective Family History Father HIV (human immunodeficiency virus infection) Mother Hypertension Maternal Grandmother Diabetes mellitus Maternal Grandfather Hypertension Lymphoma Paternal Grandfather No problems noted. 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/ Gender identity: Female Female Reproductive History Menstrual Age of Menarche: 13 Review of Systems Const All systems reviewed & are unremarkable except as noted in HPI and below Reports no additional complaints ENT Reports Normal hearing present Card Denies chest pain, Denies chest pain at rest, Denies chest pain with activity and Denies pedal edema Resp Denies cough GI Denies abdominal pain Musc Denies abnormal gait, Denies muscle cramps and Denies radiating pain into limb Skin/Breast Denies skin ulcer and Denies wounds Neuro Reports Normal hearing present and Denies abnormal gait Psych Reports no additional complaints Physical Exam Const General: cooperative, healthy appearing and comfortable Orientation/consciousness: oriented to person, oriented to place and oriented to time HEENT Head: Yes normal to inspection Neck Neck: Yes normal visual inspection Carotids: no bruits Chest Chest palpation & inspection: normal inspection of the chest Resp Effort & Inspection: normal respiratory effort and able to speak in complete sentences Auscultation: clear to auscultation bilaterally, no crackles, no rales, no rhonchi and no wheezes Cardio Other: Bilateral palpable dorsalis pedis pulses Rate: regular rate Rhythm: regular rhythm Heart sounds: S1 normal heart sound present and S2 normal heart sound present Bruits: no carotid bruits Peripheral pulses: Peripheral pulses 2+ throughout GI Inspection: Yes normal to inspection Skin Wounds: no wounds Hair: normal Neuro General: oriented to person, oriented to place and oriented to time Cranial nerves: Yes CN's II-XII intact bilaterally and Yes Normal hearing present Cognition (Neuro): normal cognition Motor exam (neuro): 5/5 motor strength present throughout Extrem Other: venous exam: +1 edema General: No clubbing, No cyanosis and Yes edema Psych Appearance: grossly normal Mental Status: mental status grossly normal Speech and movement: Normal speech and movement present Results Reviewed Results Reviewed: Brief summary of venous insufficiency testing is as follows: right great saphenous vein: negative right small saphenous vein: negative right accessory vein: none present left great saphenous vein: negative left small saphenous vein: negative left accessory vein: none present Please note there is no evidence of any venous aneurysms or significant tortuosity Assessment & Plan Assessment & Plan (1) Leg pain, bilateral: Code(s): M79.604 - Pain in right leg; M79.605 - Pain in left leg Category: Medical Plan: I discussed with the patient that her recent venous ultrasound of both legs came back completely normal, and the previous ablation procedures appear to have been successful. I also informed her that her physical exam showed good arterial pulses in her feet. Based on these findings, I explained that her current symptoms of left leg pain and numbness are not due to a circulation issue, but are more likely nerve-related, stemming from her back problems. I advised her to follow up with her scheduled appointment for her nerves and back. She will follow up with us on an as-needed basis. Thank you for allowing us to assist in her care. If there are any questions or concerns please do not hesitate to contact us. Coding Level of Care Code Est Pt Level 4 (21818) Diagnoses Leg pain, bilateral M79.604; M79.605
--- OUTSIDE RECORDS SUMMARY | 2025-04-11 10:46 | XMS_ITS | Clinical Summary ---
Author Organization [address] [facility] Address [address] [place] [address] Phone Care Team Providers Care Hydraulic Press Operator Name Role Phone Katrina Sherwood MD Primary Care Provider [phone]- [phone] Allergies Active Allergy Reactions Criticality Noted Date [...] Care Team Description 02/13/2025 Telephone Orthopedic Surgery [place] [id number] [phone] Juan Moody DPM 02/11/2025 1:00 PM EDT Office Visit Orthopedic [place] [id number] [phone] Juan Moody DPM Posterior tibial tendinitis of [...] Upcoming Encounters Date Type Department Care Team ([facility] st Contact Info) Description 04/15/2025 1:15 PM EST Office Visit Orthopedic Surgery [facility] [address] [phone] Juan Moody DPM [address] [address] Health Maintenance Due Date Last Done Comments Breast Cancer Screening 1976 Colorectal Cancer Screening: Colonoscopy 1975 Drug Screen 1976 Non-Opioid Controlled Substance Agreement 1976 HIV Screening 03/23/2022 Hepatitis C Screening [...] HPV (11/09/2021) Pathologist [facility] Cervical Cancer Screening: HPV abstracted Historical Provider HEALTH MAINTENANCE Final Result from Last 3 Months or Most Recently Relevant to Health Maintenance Insurance MEDICAID - [place] MEDICARE Care Teams Hydraulic Press Operator Relationship Specialty Start Date End Date Katrina Sherwood MD [address] [phone] PCP - General Internal Medicine 01/02/14
--- OUTSIDE RECORDS SUMMARY | 2025-04-11 10:46 | XMS_ITS | Encounter Summary ---
Author Organization [employer] Address [address] [facility] [address] 7[address] [place] [address] Care Team Providers Care Residential Instructor Name Role Phone Ceci Billings MD Primary Care Provide r Encounter Details Date Type Department Care Team (Late st Contact Info) Description 12/25/2024 Orders Only [facility] [address] [place] [address] Ceci Billings MD 230 [place] [address] Social History Tobacco Use Types Packs/Day Years [...] Visit [facility] [address] [place] [address] Ceci Billings MD [address] [place] [address] documented as of this encounter Visit Diagnoses Not on filedocumented in this encounter Additional Health Concerns Assessment Noted Time PHQ-9 Depression Total Score: 4 12/21/19 25 11:24 AM EDT documented as of this encounter Care Teams Residential Instructor Relationship Specialty Start Date End Date Ceci Billings MD 230 [place] [address] PCP - General Family Medicine 06/02/20 documented as of this encounter
--- OUTSIDE RECORDS SUMMARY | 2025-04-11 10:46 | XMS_ITS | Encounter Summary ---
Author Organization [employer] Address [address] [facility] [address] [place] [address] Care Team Providers Care Selling Underwriter Name Role Phone Ceci Billings MD Primary Care Provide r Reason for Visit * Reason Comments Med Refill Encounter Details Date Type Department Care Team (Late st Contact Info) Description 01/03/2024 Refill [facility] [address] [place] [address] Ceci Billings MD 230 [place] [address] Social History Tobacco Use Types Packs/Day Years [...] 9:00 AM EST Office Visit [facility] [address] [place] [address] Ceci Billings MD [address] [place] [address] documented as of this encounter Visit Diagnoses Not on filedocumented in this encounter Additional Health Concerns Assessment Noted Time PHQ-9 Depression Total Score: 0 10/05/19 24 9:33 AM EDT documented as of this encounter Care Teams Selling Underwriter Relationship Specialty Start Date End Date Ceci Billings MD [address] [place] [address] PCP - General Family Medicine 06/02/20 documented as of this encounter
--- OUTSIDE RECORDS SUMMARY | 2025-04-11 10:46 | XMS_ITS | Encounter Summary ---
Author Organization [employer] Address [address] [facility] [address] [place] [address] Care Team Providers Care Cord Maker Name Role Phone Ceci Billings MD Primary Care Provide r Encounter Details Date Type Department Care Team (Late st Contact Info) Description 08/15/2024 Orders Only [facility] [address] [place] [address] Provider, MD [place] Social History Tobacco Use [...] Description 06/19/2025 9:00 AM EST Office Visit [facility] [address] [place] [phone] Ceci Billings MD [address] [place] [address] documented as of this encounter Procedures Procedure [...] documented as of this encounter Care Teams Cord Maker Relationship Specialty Start Date End Date Ceci Billings MD [address] [place] [address] PCP - General Family Medicine 06/02/20 documented as of this encounter
--- OUTSIDE RECORDS SUMMARY | 2025-04-11 10:47 | XMS_ITS | Encounter Summary ---
Author Organization [employer] Address [address] [facility] [address] [place] [address] Care Team Providers Care Conservation Educator Name Role Phone Ceci Billings MD Primary Care Provide r Reason for Visit * Reason Comments Med Refill Encounter Details Date Type Department Care Team (Late st Contact Info) Description 07/18/[address] [facility] MED[facility]INE [address] [place] [address] Ceci Billings MD 230 [place] [address] Social History Tobacco Use Types Packs/Day Years [...] AM EST Office Visit [facility] [address] [place] [address] Ceci Billings MD [address] [place] [address] documented as of this encounter Visit Diagnoses Not on filedocumented in this encounter Additional Health Concerns Assessment Noted Time PHQ-9 Depression Total Score: 0 10/05/19 24 9:33 AM EDT documented as of this encounter Care Teams Conservation Educator Relationship Specialty Start Date End Date Ceci Billings MD 230 [place] [address] PCP - General Family Medicine 06/02/20 documented as of this encounter
--- OUTSIDE RECORDS SUMMARY | 2025-04-11 10:47 | XMS_ITS | Encounter Summary ---
Author Organization [employer] Address [address] [facility] [address] [place] [address] Care Team Providers Care Shell Worker Name Role Phone Ceci Billings MD Primary Care Provide r Reason for Visit * Reason Onset Date Comments Medication Question 03/12/2024 Encounter Details Date Type Department Care Team ([facility] Contact Info) Description 03/12/2024 Telephone [facility] MED[facility]INE 230 [place] [address] Ceci Billings MD 230 [place] [address] Medication Question Social History Tobacco Use Types [...] questions on med [place] . Callback number [phone] documented in this encounter Plan of Treatment Upcoming Encounters Date Type Department Care Team (Late st Contact Info) Description 06/19/2025 9:00 AM EST Office Visit [facility] MED[facility] 230 [place] [address] Ceci Billings MD [address] [place], [place] [phone] documented as of this encounter Visit Diagnoses Not on filedocumented in this encounter Additional Health Concerns Assessment Noted Time PHQ-9 Depression Total Score: 0 10/05/19 24 9:33 AM EDT documented as of this encounter Care Teams Shell Worker Relationship Specialty Start Date End Date Ceci Billings MD [address] [place] [address] PCP - General Family Medicine 06/02/20 documented as of this encounter
--- OUTSIDE RECORDS SUMMARY | 2025-04-11 10:47 | XMS_ITS | Encounter Summary ---
Author Organization [employer] Address [address] [place] [address] 7t [place] [address] Care Team Providers Care Facsimile Machine Operator Name Role Phone Ceci Billings MD Primary Care Provide r Encounter Details Date Type Department Care Team (Late st Contact Info) Description 05/27/2022 Telephone [facility] MED[facility]INE [address] [place] [phone] Ceci Billings MD [address] [place] [address] [phone] Social History Tobacco Use Types Packs/Day Years [...] 9:00 AM EST Office Visit [facility] [address] [place] [address] Ceci Billings MD 230 [place], [place] [phone] documented as of this encounter Visit Diagnoses Not on filedocumented in this encounter Care Teams Facsimile Machine Operator Relationship Specialty Start Date End Date Ceci Billings MD [address] [place] [address] PCP - General Family Medicine 06/02/20 documented as of this encounter
--- OUTSIDE RECORDS SUMMARY | 2025-04-11 10:47 | XMS_ITS | Encounter Summary ---
Author Organization [employer] Address [address] [facility] [address] 7[address] [place] [address] Care Team Providers Care Nuclear Auxiliary Operator Name Role Phone Ceci Billings MD Primary Care Provide r Reason for Visit * Reason Comments Med Refill Encounter Details Date Type Department Care Team (Late st Contact Info) Description 06/22/[address] [facility] MEDICINE [address] [place] [address] Ceci Billings MD 230 [place] [address] Migraine without aura, not refractory Social History [...] AM EST Office Visit [facility] MEDICINE [address] [place] [phone] Ceci Billings MD [address] [place] [address] documented as of this encounter Visit Diagnoses Diagnosis Migraine without aura, not refractory documented in this encounter Additional Health Concerns Assessment Noted Time PHQ-9 Depression Total Score: 0 10/05/19 24 9:33 AM EDT documented as of this encounter Care Teams Nuclear Auxiliary Operator Relationship Specialty Start Date End Date Ceci Billings MD [address] [place] [phone] PCP - General Family Medicine 06/02/20 documented as of this encounter
--- OUTSIDE RECORDS SUMMARY | 2025-04-11 10:47 | XMS_ITS | Encounter Summary ---
Author Organization [employer] Address [address] [facility] 7t [place] [address] Care Team Providers Care Beater Out Leveling Machine Name Role Phone Ceci Billings MD Primary Care Provide r Reason for Visit * Reason Onset Date Comments Med Refill 10/31/2024 Encounter Details Date Type Department Care Team (Late st Contact Info) Description 10/31/2024 Refill [facility] 230 [place] [address] Ceci Billings MD [address] [place] [address] Multiple joint pain Social History Tobacco Use [...] Description 06/19/2025 9:00 AM EST Office Visit [facility] MED[facility] [address] [place] [address] Ceci Billings MD [address] [place] [address] documented as of this encounter Visit Diagnoses Diagnosis Multiple joint pain Pain in joint, multiple sites documented in this encounter Additional Health Concerns Assessment Noted Time PHQ-9 Depression Total Score: 0 09/08/19 25 9:03 AM EDT documented as of this encounter Care Teams Beater Out Leveling Machine Relationship Specialty Start Date End Date Ceci Billings MD 230 [place] [address] PCP - General Family Medicine 06/02/20 documented as of this encounter
--- OUTSIDE RECORDS SUMMARY | 2025-04-11 10:47 | XMS_ITS | Encounter Summary ---
Author Organization [employer] Address [address] [facility] [facility] [address] 7[address] [place] [address] Care Team Providers Care Client Services Representative Name Role Phone Ceci Billings MD Primary Care Provide r Reason for Visit * Reason Comments Med Refill Encounter Details Date Type Department Care Team (Late st Contact Info) Description 11/30/2023 Refill [facility] MED[facility]INE 230 [place] [address] Ceci Billings MD 230 [place] [address] Muscle spasm Social History Tobacco Use Types [...] 06/19/2025 9:00 AM EST Office Visit [facility] MED[facility]INE [address] [place] [address] Ceci Billings MD [address] [place] [address] documented as of this encounter Visit Diagnoses Diagnosis Muscle spasm Spasm of muscle documented in this encounter Additional Health Concerns Assessment Noted Time PHQ-9 Depression Total Score: 0 10/05/19 24 9:33 AM EDT documented as of this encounter Care Teams Client Services Representative Relationship Specialty Start Date End Date Ceci Billings MD 230 [place] [address] PCP - General Family Medicine 06/02/20 documented as of this encounter
--- OUTSIDE RECORDS SUMMARY | 2025-04-11 10:47 | XMS_ITS | Encounter Summary ---
Author Organization [employer] Address [address] [facility] [address] [place] [address] Care Team Providers Care Hr Administrative Assistant Name Role Phone Ceci Billings MD Primary Care Provide r Encounter Details Date Type Department Care Team ([facility] Contact Info) Description 04/23/2024 Orders Only [facility] MED[facility]INE 230 [place] [address] Ceci Billings MD 230 [place] [address] Social History Tobacco Use Types Packs/Day Years [...] 9:00 AM EST Office Visit [facility] 230 [place] [address] Ceci Billings MD 230 [place] [address] documented as of this encounter Visit Diagnoses Not on filedocumented in this encounter Additional Health Concerns Assessment Noted Time PHQ-9 Depression Total Score: 0 10/05/19 24 9:33 AM EDT documented as of this encounter Care Teams Hr Administrative Assistant Relationship Specialty Start Date End Date Ceci Billings MD [address] [place] [phone] PCP - General Family Medicine 06/02/20 documented as of this encounter
--- OUTSIDE RECORDS SUMMARY | 2025-04-11 10:47 | XMS_ITS | Encounter Summary ---
Author Organization [employer] Address [address] [facility] [address] [place] [address] Care Team Providers Care Social Studies Teacher Name Role Phone Ceci Billings MD Primary Care Provide r Encounter Details Date Type Department Care Team (Late st Contact Info) Description 07/03/2024 Orders Only [facility] [address] [place] [address] Provider, MD [place] Social History Tobacco Use [...] 06/19/2025 9:00 AM EST Office Visit [facility] 230 [place] [address] Ceci Billings MD 230 [place] [address] documented as of this encounter Procedures Procedure [...] PM EDT Narrative 07/20/2024 4:18 PM EDT [facility] [address] [place] [address] Mammography Report Signed Patient: Windy Mcfarlane MR# : [id number] : 1975 Acct:[id number] Age/Sex: 48 / F ADM Date: 07/12/24 Loc: HO.MAMMO Attending Dr: Ceci Peacock MD Ordering Physician: Ceci Billings MD Results: 2Benign Findings Date of Service: 07/12/24 Follow Up: 1 Year From Orig inal Mammogram Procedure(s): MM tomosynthesis screening BI Accession Number(s): [id number] cc: Ceci Billings MD EXAMINATION: MM SCREENING [...] 07/20/24 1614 DD/ 1345 TD/TT: 07/12/24 1401 Fence Laborer: Procedure Note Donotuseinterpreter, Image - 07/20/2024 [facility] [address] [place] [address] Mammography Report Signed Patient: Windy McfarlaneMR# : [id number] : 1975Acct:[id number] Age/Sex: 48 / FADM Date: 07/12/24 Loc: HO.MAMMO Attending Dr: Ceci Peacock MD Ordering Physician: Ceci Billings MDResults: 2Benign Findings Date of Service: 07/12/24Follow Up: 1 Year From Orig inal Mammogram Procedure(s): MM tomosynthesis screening BI Accession Number(s): [id number] cc: Ceci Billings MD EXAMINATION: MM SCREENING [...] 07/20/24 1614 DD/ 1345 TD/TT: 07/12/24 1401 Fence Laborer: us Ceci Peacock MD IMG BI PROCEDURES Fin al Result * Bacterial Vaginosis (07/03/2024 12:00 AM EDT) TRICHOMONAS VAGINALIS DETECTION BY PCR NOT DETECTED Not Detect [facility] BACTERIAL VAGINOSIS DETECTION BY PCR NEGATIVE Negative [facility] Comment:The BV organism targ ets of [...] BY PCR NOT DETECTED Not Detect [facility] Jeni glab krusei PCR NOT DETECTED Not Detect [facility] 07/03/2024 07/03/2024 us Generic External Data Provider LAB MICROBIOLOGY - GENERAL ORDERABLES Final Result [facility] [address] [place] [address] [phone] * Chlamydia/N. Gonorrhoeae RNA, TMA, Urogenitial (07/03/2024 12:00 AM EDT) CT PCR NOT DETECTED Not Detect. [facility] Comment:A not detected test result does [...] NG PCR NOT DETECTED Not Detect. [facility] Comment:A not detected test result does [...] social or psychologicalconsequences. 07/03/2024 07/03/2024 Narrative [facility] - 07/04/2024 5:16 AM EDT Vaginal us Generic External Data Provider LAB MICROBIOLOGY - GENERAL ORDERABLES Final Result [facility] [address] [place] [address] [phone] * Colonoscopy (08/23/2023 11:53 AM EDT) us Historical Provider HEALTH MAINTENANCE Final Result documented in this encounter Visit Diagnoses Not on filedocumented in this encounter Additional Health Concerns Assessment Noted Time PHQ-9 Depression Total Score: 0 10/05/19 24 9:33 AM EDT documented as of this encounter Care Teams Social Studies Teacher Relationship Specialty Start Date End Date Ceci Billings MD [address] [place] [phone] PCP - General Family Medicine 06/02/20 documented as of this encounter
--- OUTSIDE RECORDS SUMMARY | 2025-04-11 10:47 | XMS_ITS | Encounter Summary ---
Author Organization [employer] Address [address] [facility] 7t [place] [address] Care Team Providers Care Environmental Engineering Manager Name Role Phone Ceci Billings MD Primary Care Provide r Reason for Visit * Reason Comments Med Refill Encounter Details Date Type Department Care Team ([facility] Contact Info) Description 04/30/2022 Refill [facility] [address] [place] [address] Jesús Vale MD [address] [place] [address] Influenza-like illness Social History Tobacco Use Types [...] Upcoming Encounters Date Type Department Care Team ([facility] Contact Info) Description 06/19/2025 9:00 AM EST Office Visit [facility] [address] [place] [address] Ceci Billings MD [address] [place], [place] [phone] documented as of this encounter Visit Diagnoses Diagnosis Influenza-like illness documented in this encounter Care Teams Environmental Engineering Manager Relationship Specialty Start Date End Date Ceci Billings MD [address] [place], [place] [phone] PCP - General Family Medicine 06/02/20 documented as of this encounter
--- OUTSIDE RECORDS SUMMARY | 2025-04-11 10:47 | XMS_ITS | Encounter Summary ---
Author Organization [employer] Address [address] [facility] [address] [place] [address] Care Team Providers Care Half Section Ironer Name Role Phone Ceci Billings MD Primary Care Provide r Encounter Details Date Type Department Care Team (Late st Contact Info) Description 07/27/2023 Orders Only [facility] MEDICINE [address] [place] [address] Ceci Billings MD [address] [place] [address] Class 3 severe obesity with serious comorbidity [...] Description 06/19/2025 9:00 AM EST Office Visit [facility] [address] [place] [address] Ceci Billings MD [address] [place] [address] documented as of this encounter Visit Diagnoses Diagnosis Class 3 severe obesity with serious comorbidity and body mass index (BMI) of 45.0 to 49.9 in adult, unspecified obesity type (HCC)- Primary documented in this encounter Additional Health Concerns Assessment Noted Time PHQ-9 Depression Total Score: 5 07/07/19 24 10:12 AM EDT documented as of this encounter Care Teams Half Section Ironer Relationship Specialty Start Date End Date Ceci Billings MD [address] [place] [address] PCP - General Family Medicine 06/02/20 documented as of this encounter
--- OUTSIDE RECORDS SUMMARY | 2025-04-11 10:47 | XMS_ITS | Encounter Summary ---
Author Organization [employer] Address [address] [facility] [address] [place] [address] Care Team Providers Care Java Lead Developer Name Role Phone Ceci Billings MD Primary Care Provide r Reason for Visit * Reason Onset Date Comments Med Refill 10/02/2024 Encounter Details Date Type Department Care Team (Late st Contact Info) Description 10/02/2024 Refill [facility] MED[facility]INE [address] [place] [address] Ceci Billings MD [address] [place] [address] Morbid obesity (CMS/HCC) Social History Tobacco Use [...] 9:00 AM EST Office Visit [facility] [address] [place] [address] Ceci Billings MD [address] [place] [phone] documented as of this encounter Visit Diagnoses Diagnosis Morbid obesity (CMS/HCC) (HCC) Morbid obesity documented in this encounter Additional Health Concerns Assessment Noted Time PHQ-9 Depression Total Score: 0 09/08/19 9:03 AM EDT documented as of this encounter Care Teams Java Lead Developer Relationship Specialty Start Date End Date Ceci Billings MD [address] [place] [address] [phone] PCP - General Family Medicine 06/02/20 documented as of this encounter
--- OUTSIDE RECORDS SUMMARY | 2025-04-11 10:47 | XMS_ITS | Clinical Summary ---
Author Organization [email or web address] Address [address] [facility] 7t [place] [address] Care Team Providers Care Recruitment Intern Name Role Phone Ceci Billings MD [...] Controlled continue with same interventions Severe obesity (CMS/[facility]) 08/05/2022 Multiple joint pain 08/05/2022 Hand pain [...] to 20 mmHg, continue to follow-up with compliance director Mild persistent asthma 03/01/2016 Osteopenia 03/01/2016 Allergic [...] Encounters Date Type Department Care Team Description 04/09/2025 11:00 AM EST Office Visit [facility] [address] [place] [phone] Loretta Vega NP SVT (supraventricular tachycardia) ([facility]/HCC) (Primary Dx) 04/09/2025 Travel 04/04/2025 Telephone [facility] [place] [address] Ceci Billings MD ER Follow-up 04/03/2025 Orders Only GENERIC EXTERNAL DATA DEPARTMENT Provider, Generic External Data 04/02/2025 Orders Only GENERIC EXTERNAL DATA DEPARTMENT Provider, Generic External Data 03/23/2025 Refill [facility] [place] [address] Ceci Billings MD 03/22/[address] [phone] Ceci Billings MD Migraine without aura, not refractory 03/19/2025 9:00 AM EST Office Visit [address] [phone] Ceci Billings MD Venous insufficiency (Primary Dx); Dietary counseling; Exercise counseling; Class 3 severe obesity due to excess calories with serious comorbidity and body mass index (BMI) of 40.0 to 44.9 in adult ([facility]); Lumbar radiculopathy, chronic; Moderate persistent asthma, unspecified whether complicated 03/19/2025 Travel 03/18/2025 Telephone [facility] [place], [place] [phone] Ceci Billings MD Chart Prep 03/13/[address] [phone] Ceci Billings MD Lumbar radiculopathy, chronic 03/11/2025 Patient Outreach [address] [phone] Ceci Billings MD Pre-visit Planning ((Unable to reach for PVP screening, LVM) to be completed in office ) 01/25/2025 Orders Only [facility] External Provider, [facility] from Last 3 Months Immunizations Immunization [...] Mass Index 40.27 04/09/2025 11:07 AM EST Plan of Treatment Upcoming Encounters Date Type Department Care Team (Late st Contact Info) Description 06/19/2025 9:00 AM EST Office Visit [facility] [address] [place] [address] Ceci Billings MD [address] [place] [address] Health Maintenance Due Date Last Done Comments CT Colonography 1976 FIT DNA/Cologuard 1975 FIT 1975 FOBT 1975 HIV Screening 1975 Sigmoidoscopy 1975 Family Planning (PISQ) 09/12/1991 Hepatitis C Screening 1994 COVID-19 Vaccine ( season) 2024 08/19/2020, 07/11/2020 Influenza Vaccine (#1) 2024 3, 05/07/2021, 12/24/2020, Additional history exists SDOH Screening [...] HIGH SENSITIVITY 46.1(H) <3.5 - 17.0 ng/L [facility] Comment:The Harman high sens itivity Troponin-I results should beused in conjunction with other diagnostic information suchas ECG, clinical observations and information, and patientsymptoms to aid in the diagnosis of ND. 04/03/2025 12:1 9 AM EST 04/03/2025 12:21 AM EST Generic External Data Provider LAB BLOOD ORDERAB LES Final Result Performing Organization Address [facility]/ZIP Co de Phone Number [facility] [address] [place] [phone] * Hold Lavender - Possible Hematology (04/02/2025 6:33 PM EST) Hold Lavender - Possible Hematololgy SEE NOTE [facility] Comment:Specimen will be hel d untested for 8 hours. Call Hematologyif testing is desired. 04/02/2025 6:33 PM EST 04/02/2025 6:36 PM EST Generic External Data Provider HISTORICAL/NON OR DERABLE LABS Final Result Performing Organization Address [facility] Co de Phone Number [facility] [address] [place] [address] [phone] * TSH with Reflex to Free T4 (04/02/2025 6:33 PM EST) TSH reflex Free T4 3.35 0.32 - 4.0 uIU/mL [facility] 04/02/2025 6:33 PM EST 04/02/2025 6:35 PM EST us Generic External Data Provider LAB BLOOD ORDERAB LES Final Result [facility] [address] [place] [address] [phone] * (ABNORMAL) CBC auto differential (04/02/2025 6:33 PM EST) White Blood Count 5.4 4.8 - 10.8 X10*3/uL [facility] Red Blood Count 4.57 4.20 - 5.50 X10*6/uL [facility] Hemoglobin 12.3 12.0 - 16.0 g/dl [facility] Hematocrit 39.5 37.0 - 47.0 % [facility] Mean Corpuscular Volume 86.4 80.0 - 98.0 fL [facility] Mean Corpuscular Hemoglobin 26.9(L) 27.0 - 33.0 pg [facility] Mean Corpuscular HGB Conc 31.1 31.0 - 35.0 g/dl [facility] Red Cell Distribution Width 13.2 11.0 - 16.0 % [facility] Platelet Count 221 160 - 400 X10*3/uL [facility] Mean Platelet Volume 10.6 9.4 - 12.3 fL [facility] Neutrophils Percent Auto 57.7 45 - 73 % [facility] Imm Gran Pct Auto 0.4 0.0 - 0.4 % [facility] Lymphocytes Percent Auto 29.4 20 - 40 % [facility] Monocytes Percent Auto 10.8 2 - 11 % [facility] Eosinophils Percent Auto 1.1 0 - 4 % [facility] Basophils Percent Auto 0.6 0 - 2 % [facility] NRBC Pct Auto 0.0 0.0 - 0.2 /100WBC [facility] Neutrophils Absolute Auto 3.1 2.0 - 8.3 x10*3/uL [facility] Imm Gran Abs Auto 0.02 0.00 - 0.03 X10*3/uL [facility] Lymphocytes Absolute Auto 1.6 1.2 - 4.9 X10*3/uL [facility] Monocytes Absolute Auto 0.6 0.1 - 1.2 X10*3/uL [facility] Eosinophils Absolute Auto 0.1 0.0 - 0.4 X10*3/uL [facility] Basophils Absolute Auto 0.0 0.0 - 0.2 X10*3/uL [facility] NRBC Abs Auto 0.000 0.0 - 0.012 X10*3/uL [facility] 04/02/2025 6:33 PM EST 04/02/2025 6:35 PM EST Generic External Data Provider LAB BLOOD ORDERAB LES Final Result Performing Organization Address [facility]/ZIP Co de Phone Number [facility] [address] [place] [phone] * Partial Thromboplastin Time, Activated (APTT) (04/02/2025 6:33 PM EST) Partial Thromboplastin Time 28.9 26.7 - 34.1 SEC [facility] 04/02/2025 6:33 PM EST 04/02/2025 6:35 PM EST Generic External Data Provider LAB BLOOD ORDERAB LES Final Result Performing Organization Address City/[facility]/ZIP Co de Phone Number [facility] [address] [place] [phone] * Prothrombin Time-INR (04/02/2025 6:33 PM EST) Prothrombin Time 11.7 11.2 - 13.5 SEC [facility] INTERNATIONAL NORM RATIO 1.0 0.9 - 1.1 [facility] Comment:INTERNATIONAL NORMAL IZED RATIO (INR) [...] Provider LAB BLOOD ORDERAB LES Final Result [facility] [address] [place] [address] [phone] * (ABNORMAL) Comprehensive Metabolic Panel (04/02/2025 6:33 PM EST) Sodium 140 135 - 145 mmol/L [facility] Potassium 4.5 3.3 - 5.1 mmol/L [facility] Comment:Slight Hemolysis.Int erpret result with caution. Chloride 110(H) 96 - 108 mmol/L [facility] Carbon Dioxide 23 22 - 29 mmol/L [facility] Anion Gap 12 12 - 20 [facility] Urea Nitrogen (BUN) 15 9 - 16 mg/dL [facility] Creatinine, Serum 1.11 0.5 - 1.4 mg/dL [facility] Creatinine Clr Calc Pharmacy 71.1 [facility] Comment:Provided height and weight: 162.56 cm,99.79 kg.eGFR (calculated from the MDRD study equation) and eCrCl(calculated from the Cockcroft-Gault equation) are based ondifferent parameters and may not yield comparable results.If eCrCl result is absurd, please check patient'sheight/weight. Estimated Glomerular Filt Rate 52 [facility] Comment:Chronic Kidney Disea se: Estimated GFR < 60 mL/min/1.53n9Amedpo Kidney Disease: Estimated GFR < 15 mL/min/1.73m2 Glucose 126(H) 60 - 115 mg/dL [facility] Calcium 8.1(L) 8.4 - 10.2 mg/dL [facility] Bilirubin, Total 0.2 0.0 - 1.0 mg/dL [facility] Aspartate Amino Transferase 22 5 - 31 U/L [facility] Comment:Slight Hemolysis.Int erpret result with caution. Alanine Aminotransferase 14 0 - 31 U/L [facility] Total Protein 7.1 6.5 - 8.0 g/dL [facility] Albumin Level 3.9 3.5 - 5.0 g/dL [facility] Alkaline Phosphatase 74 39 - 117 U/L [facility] 04/02/2025 6:33 PM EST 04/02/2025 6:35 PM EST us Generic External Data Provider LAB BLOOD ORDERAB LES Final Result Performing Organization Address City/State/[facility] Co de Phone Number [facility] [address] [place] [address] [phone] * VASC US Lower Extremity Venous Duplex Bilateral (01/25/2025 9:01 AM EDT) 01/25/2025 9:01 AM EDT Narrative [facility] - 01/25/2025 10:15 AM EDT [place] [address] Ultrasound Report Signed Patient: Windy Mcfarlane MR# : [id number] : 1975 Acct:[id number] Age/Sex: 49 / F ADM Date: 01/25/25 Loc: HO.US Attending Dr: Elvia MIRAMONTES Ordering Physician: Elvia Winslow Date of Service: 01/25/25 Procedure(s): US venous duplex LE BI Accession Number(s): [id number] cc: Ceci Billings MD; Elvia Winslow Reason [...] Pacheco MD in OV> 01/25/25 1012 DD/ 0901 TD/TT: 01/25/25926 Weekday Babysitter: Procedure Note Donotuseinterpreter, Image - 01/25/2025 [place] [address] Ultrasound Report Signed Patient: Windy Mcfarlane# : [id number] : 1975Acct:[id number] Age/Sex: 49 / FADM Date: 01/25/25 Loc: HO.US Attending Dr: Elvia MIRAMONTES Ordering Physician: Elvia Winslow Date of Service: 01/25/25 Procedure(s): US venous duplex LE BI Accession Number(s): [id number] cc: Ceci Billings MD; Elvia Winslow Reason [...] OV> 01/25/25 1012 DD/ 0901 TD/TT: 01/25/25926 Weekday Babysitter: us [facility] External Provider CV VASC ULAR PROCEDURES Final Result [facility] [address] [place] [phone] * Lipid Panel, Standard (08/07/2024 2:25 PM EDT) Triglycerides 63 <150 mg/dL [facility] Comment:Desirable Triglyceri de: less than 150 mg/dLBorderline High Triglyceride 150-199 mg/dLHigh Triglyceride: 200-499 mg/dLVery High Triglyceride: greater than or equal to 5OO mg/dL Cholesterol 154 <200 mg/dL [facility] Comment:Desirable Cholestero l: less than 200 mg/dLBorderline High Cholesterol: 200-239 mg/dLHigh Cholesterol: greater than 239 mg/dL LDL Cholesterol Calculated 92 <100 mg/dL [facility] Comment:Desirable LDL: less than 100 mg/dLNear Optimal/Above Optimal LDL: 110- 129 mg/dLBorderline High LDL: 130-159 mg/dLHigh LDL: 160-189 mg/dLVery High LDL: greater than or equal to 190 mg/dL HDL Cholesterol 50 >40 mg/dL [facility] Comment:Desirable HDL: great er than 40 mg/dL Note: This HDL assay may give artificially low results in patients with liver disease. Blood Venous blood specimen / Unknown 08/07/2024 2:25 PM EDT 08/07/2024 4:10 PM EDT us Ceci Peacock MD LAB BLOOD ORDERABLES Final Result Performing Organization Address City/State/[facility] Co de Phone Number [facility] [address] [place] [phone] * BI Mammogram Screening Tomosynthesis Bilateral (07/12/2024 1:45 PM EDT) Anatomical Region Laterality Modality Breast Bilateral Mammography 07/12/2024 1:45 PM EDT Narrative 07/20/2024 4:18 PM EDT [facility] [address] [place] [address] Mammography Report Signed Patient: Windy Mcfarlane MR# : [id number] : 1975 Acct:[id number] Age/Sex: 48 / F ADM Date: 07/12/24 Loc: HOFidelMAMMO Attending Dr: Ceci Peacokc MD Ordering Physician: Ceci Billings MD Results: 2Benign Findings Date of Service: 07/12/24 Follow Up: 1 Year From Orig inal Mammogram Procedure(s): MM tomosynthesis screening BI Accession Number(s): [id number] cc: Ceci Billings MD EXAMINATION: MM SCREENING [...] 07/20/24 1614 DD/ 1345 TD/TT: 07/12/24 1401 Weekday Babysitter: Procedure Note Donotuseinterpreter, Image - 07/20/2024 [facility] [address] [place] [address] Mammography Report Signed Patient: Windy McfarlaneMR# : [id number] : 1975Acct:[id number] Age/Sex: 48 / FADM Date: 07/12/24 Loc: HO.MAMMO Attending Dr: Ceci Peacock MD Ordering Physician: Ceci Billings MDResults: 2Benign Findings Date of Service: 07/12/24Follow Up: 1 Year From Orig inal Mammogram Procedure(s): MM tomosynthesis screening BI Accession Number(s): [id number] cc: Ceci Billings MD EXAMINATION: MM SCREENING [...] 07/20/24 1614 DD/ 1345 TD/TT: 07/12/24 1401 Weekday Babysitter: Ceci Peacock MD IMG BI PROCEDURES Fin al Result * HM PAP/HPV (07/03/2024 11:57 AM EDT) Historical Provider HEALTH MAINTENANCE Final Result * Hm Colonoscopy (08/23/2023 11:53 AM EDT) Historical Provider HEALTH MAINTENANCE Final Result * HPV E6/E7 RFLX JESSICA 16 18/45 (11/09/2021 2:40 PM EDT) HPV mRNA E6/E7 rflx Not Detected Not Detected [facility] Comment: Methodology: Battery Tester Field-Mediated Amplification This assay detects E6/E7 viral messenger RNA (mRNA) from 14 high-risk HPV types (16,18,31,33,35,39,45,51,52,56,58,59,66,68). Cervical sources are required for HPV testing. If a vaginal source from a patient who has had a total hysterectomy with removal of cervix was submitted, please contact the testing laboratory for alternative testing options. For additional information, please refer to http://education.Brammo/faq/GGN844l2 (This link if provided for information/ educational purposes only.) THIS TEST WAS PERFORMED AT: [employer] [address] [place] [address] FLO[address],[place] [address] TIN DICKEY MD 11/09/2021 2:40 PM EDT us Kylee Maverick HISTORICAL/NON ORDERABLE LABS Fi nal Result Performing Organization Address City/State/[facility] Co de Phone Number [facility] [address] from Last 3 Months or Most Recently Relevant to Health Maintenance Insurance MEDICARE [facility] STANDARD Care Teams Recruitment Intern Relationship Specialty Start Date End Date Ceci Billings MD [address] [place] [phone] PCP - General Family Medicine 06/02/20
--- OUTSIDE RECORDS SUMMARY | 2025-04-11 10:47 | XMS_ITS | Encounter Summary ---
Author Organization [employer] Address [address] [place] [address] Care Team Providers Care Topline Beading Machine Tender Name Role Phone Ceci Billings MD Primary Care Provide r Encounter Details Date Type Department Care Team ([facility] Contact Info) Description 10/16/2024 Telephone [facility] [address] [place] [address] Ceci Billings MD [address] [place] [address] Social History Tobacco Use Types Packs/Day Years [...] Description 06/19/2025 9:00 AM EST Office Visit [facility] [address] [place] [address] Ceci Billings MD [address] [place] [address] documented as of this encounter Visit Diagnoses Not on filedocumented in this encounter Additional Health Concerns Assessment Noted Time PHQ-9 Depression Total Score: 0 09/08/19 25 9:03 AM EDT documented as of this encounter Care Teams Topline Beading Machine Tender Relationship Specialty Start Date End Date Ceci Billings MD [address] [place] [phone] PCP - General Family Medicine 06/02/20 documented as of this encounter
--- OUTSIDE RECORDS SUMMARY | 2025-04-11 10:47 | XMS_ITS | Encounter Summary ---
Author Organization [employer] Address [address] [place] [address] Care Team Providers Care Pharmacist Aide Name Role Phone Ceci Billings MD Primary Care Provide r Encounter Details Date Type Department Care Team (Latest Contact Info) Description 04/09/2025 Travel Social History Tobacco Use Types Packs/Day [...] Description 06/19/2025 9:00 AM EST Office Visit [facility] [address] [place] [phone] Ceci Billings MD [address] [place] [address] documented as of this encounter Visit Diagnoses Not on filedocumented in this encounter Additional Health Concerns Assessment Noted Time PHQ-9 Depression Total Score: 10 025 9:44 AM EST documented as of this encounter Care Teams Pharmacist Aide Relationship Specialty Start Date End Date Ceci Billings MD [address] [place] [phone] PCP - General Family Medicine 06/02/20 documented as of this encounter
--- OUTSIDE RECORDS SUMMARY | 2025-04-11 10:48 | XMS_ITS | Encounter Summary ---
Author Organization [employer] Address [address] [place] [address] 7t [place] [address] Care Team Providers Care Grinding Room Supervisor Name Role Phone Ceci Billings MD Primary Care Provide r Reason for Visit * Reason Comments Med Refill Encounter Details Date Type Department Care Team (Late Contact Info) Description 12/02/2022 Refill [facility] [address] [place] [address] Name, MD Yaniv [address] [place] [address] Insomnia, unspecified type Social History Tobacco Use [...] Description 06/19/2025 9:00 AM EST Office Visit [facility] [address] [place] [address] Ceci Billings MD [address] [place] [address] documented as of this encounter Visit Diagnoses Diagnosis Insomnia, unspecified type documented in this encounter Additional Health Concerns Assessment Noted Time PHQ-9 Depression Total Score: 0 08/07/19 23 9:07 AM EDT documented as of this encounter Care Teams Grinding Room Supervisor Relationship Specialty Start Date End Date Ceci Billings MD [address] [place] [address] PCP - General Family Medicine 06/02/20 documented as of this encounter
== END 2025-04-11 10:00 | disposition home or self-care (01) ==
LOC: HO.HVS 09:24
PROVIDERS: PCP Internal Medicine; Visit Provider Surgery Vascular Surgery
DX: M79.604 Pain in right leg (principal); M79.605 Pain in left leg
CPT/HCPCS: 99214

== ENCOUNTER → 2025-04-11 09:24 | Outpatient (BNVA) | payer MEDICARE, MEDICAID, SELFPAY | PROVIDERS: PCP Internal Medicine; Visit Provider Surgery Vascular Surgery | DX: M79.604 Pain in right leg (principal); M79.605 Pain in left leg | CPT/HCPCS: 99212 ==